=== PATIENT | female | born 2000 | race Caucasian/White ===

== ENCOUNTER 2023-05-05 19:15 | Emergency (ER) | payer OTHER, SELFPAY ==
[2023-05-05 19:23] VITALS: BP 120/80; PULSE 100; RESP 16; TEMP 37.2; O2SAT 96; BMI 40.4
--- NOTE | 2023-05-05 19:42 | ED_ITS ---
HPI - Abdominal Pain General Chief Complaint: Abdominal Pain Stated Complaint: PELVIS PAIN/BLEEDING Time Seen by Provider: 05/05/23 19:36 Source: patient Mode of arrival: walk-in Limitations: no limitations History of Present Illness HPI narrative: presents complaining of pelvic pain for 2 months. History of mental health illness for which she takes Vraylar, vistaril, wellbutrin , trileptal. Also takes depoprovera injections for BCP and is receiving testosterone injections via telehealth physician. States one month ago seen for pelvic pain and an ultrasound was performed. States she was never told the results. now presents complaining of continued pelvic pain and occ vaginal bleeding. States she does experience pelvic cramping when she bleeds. Denies any urinary symptoms or fever Onset (ago): month(s) Related Data Home Medications Medication Instructions Recorded Confirmed injection testosterone 0.15 mg subcut .two times a week 05/05/23 05/05/23 bupropion HCl 300 mg 24 hr tablet, mg PO 05/05/23 extended release cariprazine 6 mg capsule (Vraylar) mg 05/05/23 hydroxyzine HCl 25 mg tablet mg 05/05/23 oxcarbazepine 300 mg tablet mg 05/05/23 trazodone 50 mg tablet mg 05/05/23 Allergies Allergy/AdvReac Type Severity Reaction Status Date / Time No Known Drug Allergies Allergy Verified 05/05/23 19:23 Review of Systems ROS Status of ROS 10 or more systems reviewed and unremarkable except as noted in history and below PFSH PFSH Social History Smoking status: Former smoker Exam Constitutional Vital Signs, click to edit/add: Last Vital Signs Temp 99 F 05/05/23 19:23 Pulse 100 H 05/05/23 19:23 Resp 16 05/05/23 19:23 BP 120/80 05/05/23 19:23 Pulse Ox 96 05/05/23 19:23 O2 Del Method Room Air 05/05/23 19:23 Common normals: no apparent distress, oriented x3, alert and well nourished Eye Common normals: EOMs intact bilaterally and conjunctivae normal Respiratory Common normals: normal respiratory effort, no retractions, no use of accessory muscles and clear to auscultation bilaterally Cardio Common normals: regular rate, regular rhythm, S1 normal heart sound and S2 normal heart sound GI Common normals: Normal to inspection, nondistended, normoactive bowel sounds present, soft to palpation and non-tender Extremity Common normals: normal to inspection and full ROM Neuro Common normals: oriented x3, CN's II-XII intact bilaterally, moves all extremities, no focal motor deficits and no sensory deficits noted Psych Appearance: grossly normal Course Vital Signs Vital signs: Vital Signs Temperature 99 F 05/05/23 19:23 Pulse Rate 100 H 05/05/23 19:23 Respiratory Rate 16 05/05/23 19:23 Blood Pressure 120/80 05/05/23 19:23 Pulse Oximetry 96 05/05/23 19:23 Oxygen Delivery Method Room Air 05/05/23 19:23 Temperature 99 F 05/05/23 19: Pulse Rate 100 H 05/05/23 19:23 Respiratory Rate 16 05/05/23 19:23 Blood Pressure 120/80 05/05/23 19:23 Pulse Oximetry 96 05/05/23 19:23 Oxygen Delivery Method Room Air 05/05/23 19:23 MDM - Abdominal Pain MDM Narrative Medical decision making narrative: patient presents complaining of pelvic pain for 2 months. States she had an ultrasound performed one month ago but had not been called with any results. Continues to have pelvic pain and occ vaginal bleeding. exam here unremarkable. Abdomen nontender. Pelvic bimanual exam with mild tenderness left adnexa. no guarding. No cervical motion tenderness. vaginal vault with small amount of blood that easily cleared. UA positive. Did try to obtain ultrasound report form outside hospital but they were not able to provide it. patient resting comfortably and in no distress. Prescribed Bactrim and advised to follow up with her doctor early next week for recheck and to find out the results of her pelvic ultraound Lab Data Labs: Lab Results 05/05/23 05/05/23 05/05/23 Range/Units 19:20 19:40 19:55 WBC 9.8 (4.0-11.0) 10^3/uL RBC 5.65 H (4.20-5.40) 10^6/uL Hgb 16.3 H (12.0-16.0) g/dL Hct 47.0 (36.0-48.0) % MCV 83.2 (81.0-99.0) fL MCH 28.8 (26.7-34.0) pg MCHC 34.7 (29.9-35.2) g/dL RDW 13.7 (11.0-15.0) % Plt Count 275 (150-450) 10^3/uL MPV 8.9 L (9.5-13.5) fL Neut % (Auto) 56.5 (43.0-75.0) % Lymph % (Auto) 30.5 (20.5-60.0) % [place] % (Auto) 8.8 (1.7-12.0) % Eos % (Auto) 3.2 (0.9-7.0) % Baso % (Auto) 0.6 (0.2-2.0) % Neut # (Auto) 5.5 (1.4-6.5) 10^3/uL Lymph # (Auto) 3.0 (1.2-3.8) 10^3/uL [place] # (Auto) 0.9 H (0.3-0.8) 10^3/uL Eos # (Auto) 0.3 (0.0-0.7) 10^3/uL Baso # (Auto) 0.1 (0.0-0.1) 10^3/uL Abs Immat Gran (auto) 0.04 H (0.00-0.03) 10^3/uL Imm/Tot Granulo (auto) 0.4 (0.0-0.5) % Sodium 141 (136-145) mmol/L Potassium 3.5 (3.5-5.1) mmol/L Chloride 106 (98-107) mmol/L Carbon Dioxide 23.6 (21.0-32.0) mmol/L Anion Gap 14.9 BUN 11.0 (7.0-18.0) mg/dL Creatinine 1.18 H (0.55-1.02) mg/dL Est GFR ( Amer) >60 (>=60) Est GFR (Non-Af Amer) 58 L (>=60) BUN/Creatinine Ratio 9.3 Glucose 103 (74-106) mg/dL Calcium 8.7 (8.5-10.1) mg/dL Total Bilirubin 0.3 (0.2-1.0) mg/dL AST 16 (15-37) U/L ALT 31 (14-59) U/L Alkaline Phosphatase 86 (46-116) U/L Total Protein 7.6 (6.4-8.2) g/dL Albumin 3.8 (3.4-5.0) g/dL Globulin 3.8 g/dL Albumin/Globulin Ratio 1.0 Urine Color Lt. yellow (YELLOW) Urine Clarity Clear (CLEAR) Urine pH 6.0 (5.0-9.0) Ur Specific [place] 1.020 (1.005-1.025) Urine Protein Negative (NEG/TRACE) mg/dL Urine Glucose (UA) Negative (NEGATIVE) mg/dL Urine Ketones Negative (NEGATIVE) mg/dL Urine Occult Blood Moderate A (NEGATIVE) Urine Nitrite Negative (NEGATIVE) Urine Bilirubin Negative (NEGATIVE) Urine Urobilinogen 1.0 (0.2-1.0) EU/dL Ur Leukocyte Esterase Large A (NEGATIVE) Urine RBC 10-20 A (0-2) #/HPF Urine WBC 50-75 A (NONE SEEN) #/HPF Ur Squamous Epith Cells Few A (NONE/RARE) #/LPF Urine Crystals None seen (None Seen) #/HPF Urine Bacteria Trace A (NONE SEEN) #/HPF Urine Casts None seen (NONE SEEN) #/LPF Urine Mucus None seen (NONE SEEN) Ur Culture Indicated? Yes Urine HCG, Qual Negative (NEGATIVE) Discharge Plan Discharge Chief Complaint: Abdominal Pain Clinical Impression: UTI (urinary tract infection), Pelvic pain Patient Disposition: Home, Self-Care Prescriptions / Home Meds: No Action trazodone 50 mg tablet oxcarbazepine 300 mg tablet hydroxyzine HCl 25 mg tablet bupropion HCl 300 mg tablet extended release 24 hr PO Vraylar 6 mg capsule injection testosterone 0.15 mg subcut .two times a week Instructions: Urinary Tract Infection in Women (ED), Pelvic Pain (ED) Additional Instructions: follow up with your doctor next week as discussed Stand Alone Forms: Portal Instructions Referrals: Helio Campos MD [Primary Care Provider] - 1 week
--- NOTE | 2023-05-05 19:43 | PC.NURSE ---
pt presents to ED because pt states she has an OBGYN in [facility] and had an abdominal/transvaginal ultrasound done a month ago and was never called back with the results. pt states that for the last 2 months she has had bleeding occasionally but only when she is cramping. pt does not have regular periods and states she never has. pt states that she is currently on control and has shots done monthly but is trying to get off the control. pt is also taking testosterone. pt states bleeding has gotten increasingly worse and that is why she is here today.
[2023-05-05 19:44] LABS: Bilirubin Urine NEGATIVE (NEGATIVE); Blood Urine MODERATE (NEGATIVE); Clarity Urine CLEAR (CLEAR); Color Urine LT. YELLOW (YELLOW); Glucose Urine UA NEGATIVE (NEGATIVE); Ketones Urine NEGATIVE (NEGATIVE); Leukocyte Esterase Urine LARGE (NEGATIVE); Nitrite Urine NEGATIVE (NEGATIVE); Protein Urine NEGATIVE (NEG/TRACE)
[2023-05-05 19:59] LABS: Urine Microscopic Indicated YES
[2023-05-05 20:03] LABS: Basophils Absolute Auto 0.1 10^3/uL (0.0-0.1); Basophils Percent Auto 0.6 % (0.2-2.0); Eosinophils Absolute Auto 0.3 10^3/uL (0.0-0.7); Eosinophils Percent Auto 3.2 % (0.9-7.0); Hemoglobin 16.3 g/dL (12.0-16.0); Immature Granulocytes Abs Auto 0.04 10^3/uL (0.00-0.03); Immature Granulocytes Pct Auto 0.4 % (0.0-0.5); Lymphocytes Percent Auto 30.5 % (20.5-60.0); Mean Corpuscular HGB Conc 34.7 g/dL (29.9-35.2); Mean Corpuscular Hemoglobin 28.8 pg (26.7-34.0); Mean Corpuscular Volume 83.2 fL (81.0-99.0); Mean Platelet Volume 8.9 fL (9.5-13.5); Monocytes Absolute Auto 0.9 10^3/uL (0.3-0.8); Monocytes Percent Auto 8.8 % (1.7-12.0); Neutrophils Absolute Auto 5.5 10^3/uL (1.4-6.5); Neutrophils Percent Auto 56.5 % (43.0-75.0); Platelet Count 275 10^3/uL (150-450); Red Blood Count 5.65 10^6/uL (4.20-5.40); Red Cell Distribution Width 13.7 % (11.0-15.0); White Blood Count 9.8 10^3/uL (4.0-11.0)
[2023-05-05 20:03] LABS: WBC Urine 50-75 #/HPF (NONE SEEN)
[2023-05-05 20:06] LABS: Bacteria Urine TRACE #/HPF (NONE SEEN)
[2023-05-05 20:07] LABS: Cast Seen? NONE SEEN #/LPF (NONE SEEN); Crystals Seen? None Seen #/HPF (None Seen); Mucus Urine NONE SEEN (NONE SEEN); Squamous Epithelial Cell Urine FEW #/LPF (NONE/RARE); Urine Culture Indicated YES
[2023-05-05 20:24] LABS: Alanine Aminotransferase 31 U/L (14-59); Albumin Level 3.8 g/dL (3.4-5.0); Alkaline Phosphatase 86 U/L (46-116); Anion Gap 14.9; Aspartate Amino Transferase 16 U/L (15-37); BUN Creatinine Ratio 9.3; Bilirubin Total 0.3 mg/dL (0.2-1.0); Calcium 8.7 mg/dL (8.5-10.1); Carbon Dioxide 23.6 mmol/L (21.0-32.0); Chloride 106 mmol/L (98-107); Estimated GFR (African America >60 (>=60); Estimated GFR (Non-African Ame 58 (>=60); Globulin 3.8 g/dL; Glucose 103 mg/dL (74-106); Potassium 3.5 mmol/L (3.5-5.1); Sodium 141 mmol/L (136-145); Total Protein 7.6 g/dL (6.4-8.2)
[2023-05-05 20:46] LABS: HCG Qualitative Urine* NEGATIVE (NEGATIVE)
[2023-05-05] MEDS: SULFAMETHOXAZOLE/TRIMETHOPRIM 800-160 MG TABLET 1 TAB PO (22:15)
[2023-05-09 10:09] LABS: Neisseria gonorrhoeae, NAA Negative (Negative)
== END 2023-05-05 22:28 | disposition home or self-care (01) ==
PROVIDERS: Emergency Provider Internal Medicine; PCP Family Medicine
DX: N39.0 Urinary tract infection, site not specified (principal); R10.2 Pelvic and perineal pain; Z79.899 Other long term (current) drug therapy; Z87.891 Personal history of nicotine dependence
CPT/HCPCS: 36415; 80053; 81001; 81003; 84703; 85025; 87086; 87210; 87491; 87591; 99284

== ENCOUNTER 2023-06-29 09:30 | Outpatient (OUT) | payer OTHER, SELFPAY ==
--- NOTE | 2023-06-29 09:38 | US_ITS ---
The [address] [address] Patient Name: KASH STEVE MRN: [id number] date: 2000 Sex: F Assigned Patient Location: Current Patient Location: US Accession/Order Number: [id number] Exam Date: 06/29/2023 09:40 Report Date: 06/29/2023 10:18 At the request of: ALFREDO JORGENSEN Procedure: US pelvis w/ transvaginal EXAM: Pelvic ultrasound HISTORY: . Pelvic Pain N94.89 . COMPARISON: None. TECHNIQUE: Transabdominal and transvaginal scanning was performed FINDINGS: Scanning of the pelvis demonstrates an anteverted uterus measuring 7.3 x 5.1 x 4.4 cm. Endometrial complex measures 6 mm. Left ovary measures 2.8 x 1.4 x 1.1 cm. Color-flow is noted. No masses are noted. Small follicles are noted Right ovary measures 2 x 1.5 x 1.2 cm. Color-flow is noted. Small Follicles are noted. No fluid is noted in the cul-de-sac. US/US pelvis w/ transvaginal IMPRESSION: 1. Normal-appearing uterus and endometrial complex. 2. Normal-appearing ovaries. Electronically authenticated by: SALVADOR SEO Date: 06/29/2023 10:18
== END 2023-06-29 09:31 | disposition home or self-care (01) ==
LOC: US 09:31
PROVIDERS: PCP Family Medicine; Visit Provider Nurse Practitioner Family
DX: N94.89 Other specified conditions associated with female genital organs and menstrual cycle (principal)
CPT/HCPCS: 76830; 76856

== ENCOUNTER 2023-07-16 20:44 | Outpatient (OUT) | payer OTHER, SELFPAY | END 2023-07-16 20:45 | disposition home or self-care (01) | LOC: SLEEP 20:44 | PROVIDERS: PCP Family Medicine; Visit Provider Family Medicine | DX: G47.33 Obstructive sleep apnea (adult) (pediatric) (principal) | CPT/HCPCS: 95810 ==

== ENCOUNTER 2023-08-01 21:00 | Outpatient (OUT) | payer OTHER, SELFPAY | END 2023-08-01 21:01 | disposition home or self-care (01) | LOC: SLEEP 21:00 | PROVIDERS: PCP Family Medicine; Visit Provider Family Medicine | DX: G47.33 Obstructive sleep apnea (adult) (pediatric) (principal) | CPT/HCPCS: 95811 ==

== ENCOUNTER 2023-09-26 14:25 | Emergency (ER) | payer OTHER, SELFPAY ==
[2023-09-26 14:37] VITALS: BP 99/58; PULSE 88; RESP 20; TEMP 36.6; O2SAT 97; BMI 43.4
[2023-09-26 15:57] LABS: Influenza Virus A Antigen Negative; Influenza Virus B Antigen Negative; Internal Control Within Normal Limits; SARS-CoV-2 Ag NEGATIVE (NEGATIVE)
--- NOTE | 2023-09-26 16:03 | ED.URI1 ---
HPI - URI/Sore Throat General Chief Complaint: Upper Respiratory Infection Stated Complaint: URTI COMPLAINTS Time Seen by Provider: 09/26/23 14:39 Source: patient Limitations: no limitations History of Present Illness HPI Narrative: about a week ago, the patient developed nasal congestion, right ear fullness, cough. No fever or chills. Uncertain about ill exposures. No vomiting or diarrhea. No meds taken for the symptoms. Related Data Home Medications Medication Instructions Recorded Confirmed injection testosterone 0.15 mg subcut .two times a week 05/05/23 05/05/23 bupropion HCl 300 mg 24 hr tablet, mg PO 05/05/23 extended release cariprazine 6 mg capsule (Vraylar) mg 05/05/23 hydroxyzine HCl 25 mg tablet mg 05/05/23 oxcarbazepine 300 mg tablet mg 05/05/23 trazodone 50 mg tablet mg 05/05/23 Previous Rx's Medication Instructions Recorded kbkqfjbqmikwvtf-trlcsdufmqhorjh-YQ 5 ml PO Q6H PRN cold symptoms #118 09/26/23 2 mg-30 mg-10 mg/5 mL oral syrup mL (Bromfed DM) Allergies Allergy/AdvReac Type Severity Reaction Status Date / Time No Known Drug Allergies Allergy Verified 05/05/23 19:23 PFSH PFSH Social History Smoking status: Former smoker Exam Narrative Exam Narrative: Nurses notes and vital signs reviewed and patient is not hypoxic. afebrile General: Well-appearing and in no apparent distress. Skin: Warm, dry, no pallor noted. Neck: Supple, non-tender. No cervical lymphadenopathy Eye: Pupils are equal, round and EOMI. No scleral icterus. Ears, Nose, Mouth, and Throat: TM are clear, no posterior oropharynx erythema, mild nasal mucosal hypertrophy with rhinorrhea, uvula is mid-line Oral mucosa is moist Cardiovascular: Regular Rate and Rhythm without murmur, gallop or rub. Respiratory: No accessory muscle use or respiratory distress. Lungs are clear to auscultation, no wheezing, rales or rhonchi Neurological: A&O x4. No cranial nerve dysfunction observed. No truncal ataxia. Moves all extremities. Sensation intact. Psychiatric: Cooperative and interactive. Normal mood and affect. Constitutional Vital Signs, click to edit/add: Last Vital Signs Temp 97.9 F 09/26/23 14:37 Pulse 88 09/26/23 14:37 Resp 20 09/26/23 14:37 BP 99/58 09/26/23 14:37 Pulse Ox 97 09/26/23 14:37 O2 Del Method Room Air 09/26/23 14:37 Course Vital Signs Vital signs: Vital Signs Temperature 97.9 F 09/26/23 14:37 Pulse Rate 88 09/26/23 14:37 Respiratory Rate 20 09/26/23 14:37 Blood Pressure 99/58 09/26/23 14:37 Pulse Oximetry 97 09/26/23 14:37 Oxygen Delivery Method Room Air 09/26/23 14:37 Temperature 97.9 F 09/26/23 14:37 Pulse Rate 88 09/26/23 14:37 Respiratory Rate 20 09/26/23 14:37 Blood Pressure 99/58 09/26/23 14:37 Pulse Oximetry 97 09/26/23 14:37 Oxygen Delivery Method Room Air 09/26/23 14:37 MDM - URI/Sore Throat MDM Narrative Medical decision making narrative: Influenza and COVID swabs were negative. The patient's exam is consistent with viral upper respiratory infection. She was prescribed Bromfed-DM cough syrup to take at home and discharged home with a work excuse. Lab Data Attestation: I reviewed the patient's lab results. Labs: Lab Results 09/26/23 Range/Units 15:34 SARS-CoV-2 (PCR) Negative (NEGATIVE) Influenza Type A Ag Negative Influenza Type B Ag Negative Discharge Plan Discharge Chief Complaint: Upper Respiratory Infection Clinical Impression: Upper respiratory infection Patient Disposition: Home, Self-Care Time of Disposition Decision: 16:08 Prescriptions / Home Meds: New frecsksotmzihih-prcygnzfv-OT [Bromfed DM] 2-30-10 mg/5 mL syrup 5 ml PO Q6H PRN (Reason: cold symptoms) Qty: 118 0RF No Action trazodone 50 mg tablet oxcarbazepine 300 mg tablet hydroxyzine HCl 25 mg tablet bupropion HCl 300 mg tablet extended release 24 hr PO Vraylar 6 mg capsule injection testosterone 0.15 mg subcut .two times a week Instructions: Upper Respiratory Infection (ED) Stand Alone Forms: Portal Instructions Referrals: Jordan Love MD [Primary Care Provider] - 1 week
[2023-09-27 14:27] LABS: SARS-CoV-2 NAA NOT DETECTED (NOT DETECTE)
== END 2023-09-26 16:19 | disposition home or self-care (01) ==
PROVIDERS: Emergency Provider Emergency Medicine; PCP Family Medicine
DX: J06.9 Acute upper respiratory infection, unspecified (principal); Z87.891 Personal history of nicotine dependence
CPT/HCPCS: 87635; 87804; 87811; 99284

== ENCOUNTER 2024-08-31 12:52 | Emergency (ER) | payer OTHER, SELFPAY ==
[2024-08-31 12:58] VITALS: BP 155/70; PULSE 94; TEMP 36.8; BMI 42.4
--- NOTE | 2024-08-31 13:05 | ED.ABDPAIN1 ---
HPI - Abdominal Pain General Chief Complaint: Abdominal Pain Stated Complaint: SEVERE STOMACH PAIN Time Seen by Provider: 08/31/24 12:53 Source: patient Mode of arrival: walk-in Limitations: no limitations History of Present Illness HPI narrative: 24-year-old female presents to the emergency department for abdominal pain. It began today and it is all over her abdomen. No vomiting or diarrhea or constipation. No trauma or dysuria or back pain. She has never had abdominal surgeries and has no personal history of abdominal issues. Related Data Home Medications ?Medication ?Instructions ?Recorded ?Confirmed injection testosterone 0.15 mg subcut .two times a week 05/05/23 05/05/23 bupropion HCl 300 mg 24 hr tablet, mg PO 05/05/23 extended release cariprazine 6 mg capsule (Vraylar) 6 mg PO DAILY 05/05/23 08/31/24 hydroxyzine HCl 25 mg tablet mg 05/05/23 oxcarbazepine 300 mg tablet mg 05/05/23 trazodone 50 mg tablet mg 05/05/23 venlafaxine 75 mg capsule,extended 150 mg PO DAILY 08/31/24 08/31/24 release 24 hr Previous Rx's ?Medication ?Instructions ?Recorded djeitjwvcvvvhfj-anhuksvpdkeofjl-VL 5 ml PO Q6H PRN cold symptoms #118 09/26/23 2 mg-30 mg-10 mg/5 mL oral syrup mL (Bromfed DM) Allergies Allergy/AdvReac Type Severity Reaction Status Date / Time No Known Drug Allergies Allergy Verified 08/31/24 12:58 Review of Systems ROS Narrative A ten point review of systems is negative except as noted above. PFSH PFSH Social History Smoking status: Former smoker Little interest or pleasure in doing things: not at all Feeling down, depressed, or hopeless: not at all Exam Narrative Exam Narrative: Nurses note and vital signs reviewed and patient is not hypoxic. General: The patient appears well and in no apparent distress. Patient is resting comfortably on cart. Skin: Warm, dry, no pallor noted. There is no rash noted. Head: Normocephalic, atraumatic Eye: Normal conjunctiva, no drainage Ears, Nose, Mouth, and Throat: oral mucosa is moist. Nares patent. Cardiovascular: Regular Rate and Rhythm Respiratory: Patient is in no distress, no accessory muscle use, lungs are clear to auscultation, no wheezing, rales or rhonchi Back: non-tender GI: Soft and nondistended. Normal bowel sounds. Minimal diffuse tenderness. Musculoskeletal: The patient has no evidence of calf tenderness, no pitting edema, symmetrical pulses noted bilaterally Neurological: A&O, normal speech Psychiatric: Cooperative Constitutional Vital Signs, click to edit/add: Last Vital Signs Temp 98.2 F 08/31/24 12:58 Pulse 88 08/31/24 13:57 Resp 18 08/31/24 13:57 BP 113/67 08/31/24 13:57 Pulse Ox 99 08/31/24 13:57 O2 Del Method Room Air 08/31/24 12:58 Course Vital Signs Vital signs: Vital Signs Temperature 98.2 F 08/31/24 12:58 Pulse Rate 94 H 08/31/24 12:58 Respiratory Rate 18 08/31/24 12:58 Blood Pressure 155/70 H 08/31/24 12:58 Oxygen Delivery Method Room Air 08/31/24 12:58 Temperature 98.2 F 08/31/24 12:58 Pulse Rate 88 08/31/24 13:57 Respiratory Rate 18 08/31/24 13:57 Blood Pressure 113/67 08/31/24 13:57 Pulse Oximetry 99 08/31/24 13:57 Oxygen Delivery Method Room Air 08/31/24 12:58 MDM - Abdominal Pain MDM Narrative Medical decision making narrative: Urinalysis is negative and blood work is essentially negative. X-ray shows constipation and she was recommended MiraLAX. Treatment diagnosis and follow-up were discussed with the patient. Differential Diagnosis Differential diagnosis: Likely abdominal pain, constipation, diverticulitis, gastroenteritis and pancreatitis Lab Data Attestation: I reviewed the patient's lab results. Labs: Lab Results 08/31/24 08/31/24 Range/Units 13:23 14:06 WBC 12.2 H (4.0-11.0) 10^3/uL RBC 4.93 (4.20-5.40) 10^6/uL Hgb 15.2 (12.0-16.0) g/dL Hct 43.7 (36.0-48.0) % MCV 88.6 (81.0-99.0) fL MCH 30.8 (26.7-34.0) pg MCHC 34.8 (29.9-35.2) g/dL RDW 12.2 (11.0-15.0) % Plt Count 299 (150-450) 10^3/uL MPV 8.7 L (9.5-13.5) fL Neut % (Auto) 65.5 (43.0-75.0) % Lymph % (Auto) 24.1 (20.5-60.0) % [place] % (Auto) 6.9 (1.7-12.0) % Eos % (Auto) 2.5 (0.9-7.0) % Baso % (Auto) 0.5 (0.2-2.0) % Neut # (Auto) 8.0 H (1.4-6.5) 10^3/uL Lymph # (Auto) 3.0 (1.2-3.8) 10^3/uL [place] # (Auto) 0.8 (0.3-0.8) 10^3/uL Eos # (Auto) 0.3 (0.0-0.7) 10^3/uL Baso # (Auto) 0.1 (0.0-0.1) 10^3/uL Abs Immat Gran (auto) 0.06 H (0.00-0.03) 10^3/uL Imm/Tot Granulo (auto) 0.5 (0.0-0.5) % Sodium 141 (136-145) mmol/L Potassium 4.0 (3.5-5.1) mmol/L Chloride 104 (98-107) mmol/L Carbon Dioxide 24.2 (21.0-32.0) mmol/L Anion Gap 16.8 BUN 14.0 (7.0-18.0) mg/dL Creatinine 0.90 (0.55-1.02) mg/dL Est GFR ( Amer) >60 (>=60 mL/min/1.73m^2) Est GFR (Non-Af Amer) >60 (>=60 mL/min/1.73m^2) BUN/Creatinine Ratio 15.6 Glucose 100 (74-106) mg/dL Calcium 9.1 (8.5-10.1) mg/dL Total Bilirubin 0.4 (0.2-1.0) mg/dL Direct Bilirubin 0.1 (0.0-0.2) mg/dL AST 14 L (15-37) U/L ALT 27 (14-59) U/L Alkaline Phosphatase 92 (46-116) U/L Total Protein 7.5 (6.4-8.2) g/dL Albumin 3.5 (3.4-5.0) g/dL Globulin 4.0 g/dL Albumin/Globulin Ratio 0.9 Amylase 97 (25-115) U/L Lipase 50.0 (16.0-77.0) U/L Serum HCG, Qual Negative (NEGATIVE) Urine Color Lt. yellow (YELLOW) Urine Clarity Clear (CLEAR) Urine pH 7.0 (5.0-9.0) Ur Specific [place] 1.015 (1.005-1.025) Urine Protein Negative (NEG/TRACE) mg/dL Urine Glucose (UA) Negative (NEGATIVE) mg/dL Urine Ketones Negative (NEGATIVE) mg/dL Urine Occult Blood Negative (NEGATIVE) Urine Nitrite Negative (NEGATIVE) Urine Bilirubin Negative (NEGATIVE) Urine Urobilinogen 0.2 (0.2-1.0) EU/dL Ur Leukocyte Esterase Negative (NEGATIVE) Urine RBC None seen (0-2) #/HPF Urine WBC None seen (NONE SEEN) #/HPF Ur Squamous Epith Cells Many A (NONE/RARE) #/LPF Urine Crystals None seen (None Seen) #/HPF Urine Bacteria Trace A (NONE SEEN) #/HPF Urine Casts None seen (NONE SEEN) #/LPF Urine Mucus None seen (NONE SEEN) Ur Culture Indicated? No Imaging Data Abdominal x-ray: Radiologist's impression: ITS Impressions Abdomen X-Ray 08/31/24 13:57 IMPRESSION: Moderate colonic stool. Increased bowel gas without evidence of obstruction. Electronically authenticated by: TEA MALDONADO Date: 08/31/2024 15:41 Discharge Plan Discharge Chief Complaint: Abdominal Pain Clinical Impression: Constipation Patient Disposition: Home, Self-Care Time of Disposition Decision: 15:51 Condition: Good Mode of Transportation: Private Vehicle Prescriptions / Home Meds: No Action trazodone 50 mg tablet oxcarbazepine 300 mg tablet hydroxyzine HCl 25 mg tablet bupropion HCl 300 mg tablet extended release 24 hr PO Vraylar 6 mg capsule 6 mg PO DAILY injection testosterone 0.15 mg subcut .two times a week venlafaxine 75 mg capsule,extended release 24hr 150 mg PO DAILY ccupflnbjnntbau-svxmnbbjf-PL [Bromfed DM] 2-30-10 mg/5 mL syrup 5 ml PO Q6H PRN (Reason: cold symptoms) Qty: 118 0RF Print Language: Telugu Instructions: Constipation (ED) Additional Instructions: Gbrl-vxy-ireiuwd MiraLAX for constipation Referrals: Jordan Love MD [Primary Care Provider] - 1 week
--- OUTSIDE RECORDS SUMMARY | 2024-08-31 13:15 | XMS_ITS | CCD ---
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 Name Role Phone MD Helio Florian Primary Care Provider MD Param Rao Admit Provider MD Param Rao Attending Provider [phone] MARKER, DR JONAS Admitting Unavailable MARKER, DR JONAS Attending Unavailable MARKER, DR JONAS Consulting Unavailable CHIQUI, DR HELIO Verma Primary Care Unavailable CHIQUI, DR HELIO Verma Primary Care Unavailable CHALO, FRANCK NAVAS Consulting Unavailable RUTH, DR PARK Perez Admitting Unavailable RUTH, DR PARK Perez Attending Unavailable Roseanne Grady Consulting Unavailable TAL IQBAL Admitting Unavailable MIRIAM VEGA Consulting Unavailable CHIQUI, DR HELIO Verma Primary Care Unavailable TAL IQBAL Attending Unavailable TAL IQBAL Consulting Unavailable CHIQUI, DR HELIO Verma Primary Care Unavailable TAL IQBAL Attending Unavailable TAL IQBAL Admitting Unavailable Dante Valadez Attending Unavailab Dante Corral Admitting Unavailab Helio Cornjeo Primary Care Unavailable Medications Current Medications Medication Drug Class(es) Dates Sig (Normalized) Sig (Original) 24 hr buPROPion hydrochloride 150 mg extended release oral tablet (1 source) Aminoketone Start: 09-15-2022 take 150 mg by mouth once daily in the morning Bupropion Hcl Active 150 MG PO Every morning September 15, 2022 12:00am cariprazine 3 mg oral capsule (1 source) Atypical Antipsychotic Start: 09-15-2022 take 1 capsule by mouth once daily Cariprazine (Vraylar) 3 mg Capsule Active 3 MG PO Daily September 15, 2022 12:00am 24 hr nicotine 0.583 mg/hr transdermal system (1 source) Cholinergic Nicotinic Agonist Start: 09-15-2022 Nicotine Active 1 EACH TRANSDERML Daily September 15, 2022 12:00am Problems Active Problems Problem Classification Problem Date Documented Da te Episodic/Chronic Headache; including migraine (3 sources) Headache; including migraine; Translations: [HEADACHE UNSPECIFIED] Onset: 09-30-2021 Mood disorders (2 sources) Bipolar disorder; Translations: [Bipolar disorder, unspecified] 09-13-2022 Chronic Mood disorders (1 source) Mood disorders; Translations: [DEPRESSION UNSPECIFIED] Onset: 09-14-2022 Other nutritional; endocrine; and metabolic disorders (1 source) Morbid (severe) obesity due to excess calories; Translations: [MORBID SEVERE OBES D/T EXCESS FELICIANO] Onset: 10-04-2021 Chronic Substance-related disorders (1 source) Nicotine dependence, cigarettes, uncomplicated; Translations: [NICOTINE DEPEND CIGARETTES UNCOMP] Onset: 09-14-2022 Chronic Suicide and intentional self-inflicted injury (4 sources) Suicidal ideations; Translations: [SUICIDAL IDEATIONS] Onset: 09-12-2022 Episodic Unclassified (3 sources) COUGH, UNSPECIFIED; Translations: [COUGH, UNSPECIFIED] Onset: 10-05-2021 Viral infection (1 source) COVID-19; Translations: [COVID-19] Onset: 10-05-2021 Past or Other Problems Problem Classification Problem Date Documented Da te Episodic/Chronic Nausea and vomiting (1 source) Nausea; Translations: [NAUSEA] Onset: 10-05-2021 Episodic Other aftercare (1 source) Other half-way (current) drug therapy; Translations: [OTH PENITENTIARY CURRENT DRUG THERAPY] Onset: 10-05-2021 Episodic Residual codes; unclassified (4 sources) Procedure and treatment not carried out due to patient leaving prior to being seen by health care provider; Translations: [PROC AND TX NOT CARRIED OUT PT LEAVE] Onset: 10-19-2021 Episodic Screening and history of mental health and substance abuse codes (1 source) Personal history of nicotine dependence; Translations: [PERSONAL HISTORY OF NICOTINE DEPEND] Onset: 10-04-2021 Episodic Unclassified (1 source) COUGH, UNSPECIFIED; Translations: [COUGH, UNSPECIFIED] Onset: 10-03-2021 Results Test Name Value Interpretation Reference Range Facility Cholesterol [Mass/volume] in Serum or PlasmaOrdered By: Param Rao on 09-13-2022 Cholesterol [Mass/Vol] 141 mg/dL 140-200 [facility] Comment on above: Chol less than 200 m g/dl low riskChol 201-239 mg/dl borderline riskChol 240 mg/dl and greater high risk Cholesterol in LDL Calc [Mas s/Vol]Ordered By: Param Rao on 09-13-2022 Cholesterol in LDL [Mass/Vol] 94 mg/dL 0-100 [facility] Comment on above: LDL ATP III CLASSIFI CATIONLDL less than 100 mg/dL OptimalLDL 100-129 mg/dL Near or above optimalLDL 130-159 mg/dL Borderline highLDL 160-189 mg/dL HighLDL greater than 189 mg/dL Very high Cholesterol in VLDL Calc [Ma ss/Vol]Ordered By: Param Rao on 09-13-2022 Cholesterol in VLDL [Mass/Vol] 9 mg/dL [facility] No Panel InformationOrdered By: Param Rao on 09-13-2022 25-Hydroxy Vitamin D Total 11.9 ng/mL 30-100 [facility] Comment on above: VITAMIN D STATUS 25( OH)VITAMIN D RANGE (ng/mL) Deficient <20 Insufficient 20 to <30Sufficient 30 to 100Reference: Zee MF,[place] NC, Prabhu DOWNS, et al. Evaluation,treatment, and prevention of vitamin D deficiency; an Endocrine Society clinical practice guideline. JCEM. 2010; 96(7):1911-30. Serum or plasma high density lipoprotein (HDL) cholesterol measurementOrdered By: Param Rao on 09-13-2022 Cholesterol in HDL [Mass/Vol] 38 mg/dL 35-85 [facility] Comment on above: HDL CHOL ATP-III CLA SSIFICATION Cardiovascular RiskHDL > or equal to 60 mg/dL LOWHDL < 40 mg/dL HIGH Serum or plasma total choles terol/high density lipoprotein (HDL) cholesterol mass ratOrdered By: Param Rao on 09-13-2022 Cholesterol.total/Chol esterol in HDL [Mass ratio] 3.7 {ratio} <5.0 [facility] TSH DL <= 0.005 mIU/L QnOrde red By: Param Rao on 09-13-2022 TSH Qn 0.81 m[IU]/L 0.45-5.33 [facility] Triglyceride [Mass/volume] i n Serum or PlasmaOrdered By: Param Rao on 09-13-2022 Triglyceride [Mass/Vol] 45 mg/dL 35-149 [facility] Comment on above: TRIG ATP III CLASSIF ICATIONTRIG less than 150 mg/dL NormalTRIG 150-199 mg/dL Borderline highTRIG 200-500 mg/dL High TRIG greater than 500 mg/dL Very highStandard traceable to the Center for Disease Conrtrol and Prevention (CDC) test method. ACETAMINOPHENon 09-12-2022 Acetaminophen [Mass/Vol] ug/mL Critically low 10.0-30.0 [facility] Comment on above: Performed By: #### S ALYC, ACET, CMP #### [facility] [address] [place] [address] Dr. Machelle Garcia CBC AUTO DIFFon 09-12-2022 BASO # 0.0 103/ul Normal 0.0-0.1 [facility] Comment on above: Performed By: #### C BC #### [facility] [address] [place] [address] Dr. Machelle Garcia Basophils/100 WBC (Bld) 0.4 % Normal 0.2-2.0 [facility] Comment on above: Performed By: #### C BC #### [facility] [address] [place] [address] Dr. Machelle Garcia EO # 0.1 103/ul Normal 0.0-0.7 [facility] Comment on above: Performed By: #### C BC #### [facility] [address] [place] [address] Dr. Machelle Garcia Eosinophils/100 WBC (Bld) 0.8 % Critically low 0.9-7.0 [facility] Comment on above: Performed By: #### C BC #### [facility] [address] [place] [address] Dr. Machelle Garcia Erythrocyte distribution width (RBC) [Ratio] 12.4 % Normal 11.0-15.0 [facility] Comment on above: Performed By: #### C BC #### [facility] [address] [place] [address] Dr. Machelle Garcia Hematocrit (Bld) [Volume fraction] 40.4 % Normal 36.0-48.0 [facility] Comment on above: Performed By: #### C BC #### [facility] [address] [place] [address] Dr. Machelle Garica Hemoglobin (Bld) [Mass/Vol] 14.3 g/dL Normal 12.0-16.0 [facility] Comment on above: Performed By: #### C BC #### [facility] [address] [place] [address] Dr. Machelle Garcia IG # 0.02 10e3/ul Normal 0.00-0.03 [facility] Comment on above: Performed By: #### C BC #### [facility] [address] [place] [address] Dr. Machelle Garcia IG % 0.3 % Normal 0.0-0.5 [facility] Comment on above: Performed By: #### C BC #### [facility] [address] [place] [address] Dr. Machelle Garcia LYMPH # 1.0 103/ul Critically low 1.2-3.8 [facility] Comment on above: Performed By: #### C BC #### [facility] [address] [place] [address] Dr. Machelle Garcia Lymphocytes/100 WBC (Bld) 14.1 % Critically low 20.5-60.0 [facility] Comment on above: Performed By: #### C BC #### [facility] [address] [place] [address] Dr. Machelle Garcia MANUAL DIFF REQ NO Normal [facility] Comment on above: Performed By: #### C BC #### [facility] [address] [place] [address] Dr. Machelle Garcia MCH (RBC) [Entitic mass] 29.7 pg Normal 26.7-34.0 [facility] Comment on above: Performed By: #### C BC #### [facility] [address] [address] [address] Machelle Garcia MCHC (RBC) [Mass/Vol] 35.4 g/dL Critically high 29.9-35.2 [facility] Comment on above: Performed By: #### C BC #### [facility] [address] [address] [address] Machelle Garcia MCV (RBC) [Entitic vol] 83.8 fL Normal 81.0-99.0 [facility] Comment on above: Performed By: #### C BC #### [facility] [address] [address] [address] Machelle Garcia MONO # 0.9 103/ul Critically high 0.3-0.8 [facility] Comment on above: Performed By: #### C BC #### [facility] [address] [address] [address] Machelle Garcia Monocytes/100 WBC (Bld) 12.6 % Critically high 1.7-12.0 [facility] Comment on above: Performed By: #### C BC #### [facility] [address] [address] [address] Machelle Garcia NEUT # 5.2 103/ul Normal 1.4-6.5 [facility] Comment on above: Performed By: #### C BC #### [facility] [address] [address] [address] Machelle Garcia Neutrophils/100 WBC (Bld) 71.8 % Normal 43.0-75.0 [facility] Comment on above: Performed By: #### C BC #### [facility] [address] [address] [address] Machelle Garcia Platelet mean volume (Bld) [Entitic vol] 9.9 fL Normal 9.5-13.5 [facility] Comment on above: Performed By: #### C BC #### [facility] [address] [address] [address] Machlele Garcia PLT 245 103/ul Normal 150-450 [facility] Comment on above: Performed By: #### C BC #### [facility] [address] [address] [address] Machelle Garcia RBC 4.82 106/ul Normal 4.20-5.40 [facility] Comment on above: Performed By: #### C BC #### [facility] [address] [address] [address] Machelle Garcia WBC 7.2 103/ul Normal 4.0-11.0 [facility] Comment on above: Performed By: #### C BC #### [facility] [address] [address] [address] Machelle Garcia DRUG SCREEN RAPID (URINE)on 09-12-2022 AMP Negative Normal NEGATIVE [facility] Comment on above: Performed By: #### D RUGRPD ####[facility] [address] [address]Dr. Machelle Garcia BAR Negative Normal NEGATIVE [facility] Comment on above: Performed By: #### D RUGRPD ####[facility] [id number] [address]Dr. Machelle Garcia BUP Negative Normal NEGATIVE [facility] Comment on above: Performed By: #### D RUGRPD ####[facility] [id number] [address]Dr. Machelle Garcia BZO Negative Normal NEGATIVE [facility] Comment on above: Performed By: #### D RUGRPD ####[facility] [address] [address]Dr. Machelle Garcia JOHN Negative Normal NEGATIVE [facility] Comment on above: Performed By: #### D RUGRPD ####[facility] [address] [address]Dr. Machelle Garcia CUT-OFFS SEE BELOW Normal [facility] Comment on above: Result Comment: AMP (Amphetamine): 500ng/mL, BAR (Barbituates): 200 ng/mL, BZO (Benzodiazepines): 150 ng/mL, BUP (Buprenorphine): 10 ng/mL, JOHN (Cocaine): 150 ng/mL, mAMP (Methamphetamine): 500 ng/mL, MTD (Methadone): 200 ng/mL, OPI (Opiates): 100 ng/mL, OXY (Oxycodone): 100 ng/mL, PCP (Phencyclidine): 25 ng/mL, PPX (Propoxyphene): 300 ng/mL, THC (Cannabinoids): 50 ng/mL, TCA (Trycyclic Antidepressants): 300 ng/mL Performed By: #### D RUGRPD ####[facility] [address] [place], [place] [address]Dr. Machelle Garcia DRUG CUT HEADER DRUG CLASS TEST SYST EM CUT-OFF CONCENTRATIONS ARE FOLLOWS: Normal [facility] Comment on above: Performed By: #### D RUGRPD ####[facility] [address] [place], [place] [address]Dr. Machelle Garcia mAMP Negative Normal NEGATIVE [facility] Comment on above: Performed By: #### D RUGRPD ####[facility] [address] [place], [place] [address]Dr. Machelle Garcia MTD Negative Normal NEGATIVE [facility] Comment on above: Performed By: #### D RUGRPD ####[facility] [address] [place], [place] [address]Dr. Machelle Garcia OPI Negative Normal NEGATIVE [facility] Comment on above: Performed By: #### D RUGRPD ####[facility] [address] [place], [place] [address]Dr. Machelle Garcia OXY Negative Normal NEGATIVE [facility] Comment on above: Performed By: #### D RUGRPD ####[facility] [address] [place], [place] [address]Dr. Machelle Garcia PCP Negative Normal NEGATIVE [facility] Comment on above: Performed By: #### D RUGRPD ####[facility] [address] [place], [place] [address]Dr. Machelle [facility] PPX Negative Normal NEGATIVE [facility] Comment on above: Performed By: #### D RUGRPD ####[facility] [address] [place], [place] [address]Dr. Machelle Garcia TCA Negative Normal NEGATIVE [facility] Comment on above: Performed By: #### D RUGRPD ####[facility] [id number] [address]Dr. Machelle Garcia THC Positive Abnormal NEGATIVE [facility] Comment on above: Performed By: #### D RUGRPD ####[facility] [address] [id number]. Machelle Garcia ER URINE PROFILEon 2 Bilirubin Ql (U) Negative Normal NEGATIVE [facility] Comment on above: Performed By: #### P REGU, ERUR #### [facility] [address] [address] [address] Machelle Garcia Clarity (U) CLEAR Normal CLEAR [facility] Comment on above: Performed By: #### P REGU, ERUR #### [facility] [address] [address] [address] Machelle Garcia Color (U) LT. YELLOW Normal YELLOW [facility] Comment on above: Performed By: #### P REGU, ERUR #### [facility] [address] [address] [address] Machelle TAYLOR A micrscopic examination will be performed if indicated. Normal [facility] Comment on above: Performed By: #### P REGU, ERUR #### [facility] [address] [address] [address] Machelle Garcia Glucose Ql (U) Negative Normal NEGATIVE [facility] Comment on above: Performed By: #### P REGU, ERUR #### [facility] [address] [address] [address] Machelle Garcia Hemoglobin Ql (U) Negative Normal NEGATIVE [facility] Comment on above: Performed By: #### P REGU, ERUR #### [facility] [address] [address] [address] Machelle Garcia Ketones Ql (U) TRACE Abnormal NEGATIVE [facility] Comment on above: Performed By: #### P REGU, ERUR #### [facility] [address] [address] [address] Machelle Garcia LEUKOCYTES Negative Normal NEGATIVE [facility] Comment on above: Performed By: #### P REGU, ERUR #### [facility] [address] [address] [address] Machelle Garcia Nitrite Ql (U) Negative Normal NEGATIVE [facility] Comment on above: Performed By: #### P REGU, ERUR #### [facility] [address] [address] [address] Machelle Garcia pH (U) 5.5 [pH] Normal 5-9 [facility] Comment on above: Performed By: #### P REGU, ERUR #### [facility] [address] [address] [address] Machelle Garcia SPEC GRAVITY 1.020 Normal 1.005-<=1.02 5 [facility] Comment on above: Performed By: #### P REGU, ERUR #### [facility] [address] [address] [address] Machelle Garcia UA PROTEIN Negative Normal NEGATIVE/ TRACE [facility] Comment on above: Performed By: #### P REGU, ERUR #### [facility] [address] [address] [address] Machelle Garcia UR MICRO IND NOT INDICATED Normal [facility] Comment on above: Performed By: #### P REGU, ERUR #### [facility] [address] [address] [address] Machelle Garcia Urobilinogen Qn (U) 0.2 {Jeanine'U}/dL Normal 0.2 - 1. 0 [facility] Comment on above: Performed By: #### P REGU, ERUR #### [facility] [address] [address] [address] Machelle Garcia ETHANOL (BLD ALC)on 09-12-20 ALC NOTE NOTE: 80 mg/dl is th e legal limit for a blood alcohol level Normal [facility] Comment on above: Performed By: #### E TH ####[facility] [address] [address]Dr. Machelle Garcia Ethanol [Mass/Vol] mg/dL Normal [facility] Comment on above: Performed By: #### E TH ####[facility] [address] [place], [place] [address]Dr. Machelle Garcia URon 09-12-2022 , QUAL Negative Normal NEGATIVE [facility] Comment on above: Performed By: #### P REGU, ERUR #### [facility] [address] [address] [address] Machelle Garcia PROF 14(COMP METB)on 022 Albumin [Mass/Vol] 3.9 g/dL Normal 3.4-5.0 [facility] Comment on above: Performed By: #### S ALYC ACET, CMP #### [facility] [address] [address] [address] Machelle Garcia Albumin/Globulin [Mass ratio] 1.1 {ratio} Normal [facility] Comment on above: Performed By: #### S ALYC ACET, CMP #### [facility] [address] [address] [address] Machelle Garcia ALP [Catalytic activity/Vol] 89 U/L Normal 46-116 [facility] Comment on above: Performed By: #### S ALYC ACET, CMP #### [facility] [address] [address] [address] Machelle Garcia ALT [Catalytic activity/Vol] 19 U/L Normal 14-59 [facility] Comment on above: Performed By: #### S ALYC, ACET, CMP #### [facility] [address] [address] [address] Machelle Garcia Anion gap [Moles/Vol] 12.1 mmol/L Normal [facility] Comment on above: Performed By: #### S ALYC, ACET, CMP #### [facility] [address] [address] [address] Machelle Garcia AST [Catalytic activity/Vol] 16 U/L Normal 15-37 [facility] Comment on above: Performed By: #### S ALYC, ACET, CMP #### [facility] [address] [address] [address] Machelle Garcia Bilirubin [Mass/Vol] 0.4 mg/dL Normal 0.2-1.0 [facility] Comment on above: Performed By: #### S ALTOSHA ACET, CMP #### [facility] [address] [address] [address] Machelle Garcia Calcium [Mass/Vol] 9.0 mg/dL Normal 8.5-10.1 [facility] Comment on above: Performed By: #### S ALYC ACET, CMP #### [facility] [address] [address] [address] Machelle Garcia Chloride [Moles/Vol] 104 mmol/L Normal 98-107 [facility] Comment on above: Performed By: #### S ALTOSHA ACET, CMP #### [facility] [address] [place] [address] Dr. Machelle Garcia CO2 [Moles/Vol] 25.5 mmol/L Normal 21.0-32.0 [facility] Comment on above: Performed By: #### S ALYC ACET, CMP #### [facility] [address] [place] [address] Dr. Machelle Garcia Creatinine [Mass/Vol] 0.86 mg/dL Normal 0.55-1.02 [facility] Comment on above: Performed By: #### S ALTOSHA ACET, CMP #### [facility] [address] [place] [address] Dr. Machelle Garcia EGFR-AF IRISH >60 Normal >=60 [facility] Comment on above: Performed By: #### S ALYC ACET, CMP #### [facility] [address] [place] [address] Dr. Machelle Garcia EGFR-NON AF IRISH >60 Normal >=60 [facility] Comment on above: Performed By: #### S ALYC ACET, CMP #### [facility] [address] [place] [address] Dr. Machelle Garcia Globulin (S) [Mass/Vol] 3.4 g/dL Normal [facility] Comment on above: Performed By: #### S ALYC, ACET, CMP #### [facility] [address] [address] [address] Machelle Garcia Glucose [Mass/Vol] 102 mg/dL Normal 74-106 [facility] Comment on above: Performed By: #### S ALYC ACET, CMP #### [facility] [address] [address] [address] Machelle Garcia Potassium [Moles/Vol] 3.6 mmol/L Normal 3.5-5.1 [facility] Comment on above: Performed By: #### S ALYC ACET, CMP #### [facility] [address] [address] Dr. Machelle Garcia Protein [Mass/Vol] 7.3 g/dL Normal 6.4-8.2 [facility] Comment on above: Performed By: #### S ALYC, ACET, CMP #### [facility] [address] [place] [address] Dr. Machelle Garcia Sodium [Moles/Vol] 138 mmol/L Normal 136-145 [facility] Comment on above: Performed By: #### S ALYC, ACET, CMP #### [facility] [address] [address] [address] Machelle Garcia Urea nitrogen [Mass/Vol] 10.0 mg/dL Normal 7.0-18.0 [facility] Comment on above: Performed By: #### S ALYC, ACET, CMP #### [facility] [address] [address] [address] Machelle Garcia Urea nitrogen/Creatinine [Mass ratio] 11.6 mg/mg Normal [facility] Comment on above: Performed By: #### S ALYC, ACET, CMP #### [facility] [address] [address] [address] Machelle Garcia SALICYLATEon 09-12-2022 SALICYLATE <2.8 Normal <=19.9 [facility] Comment on above: Performed By: #### S ALYC, ACET, CMP #### [facility] [address] [address] [address] Machelle Garcia XR CHEST 1 Von 10-03-2021 XR CHEST 1 V EXAMINATION: XR CHES T 1 V, , 10/03/2021 7:50 PM EST INDICATION: COUGH HISTORY: Ordering Provider Reason for Exam: Technologist Note: Additional: COMPARISON: None. TECHNIQUE: Chest x-ray: One view. FINDINGS: No pneumothorax, pleural effusion or focal airspace consolidation. Heart is normal in size. Bony thorax is unremarkable. IMPRESSION: No acute cardiopulmonary process. Electronically authenticated by: ROSEANNE GRADY Date: 2021-10-03 20:52 Normal [facility] CBC AUTO DIFFon 09-30-2021 BASO # 0.0 103/ul Normal 0.0-0.1 [facility] Comment on above: Performed By: #### C BC #### [facility] [address] [place] [address] Dr. Machelle Garcia Basophils/100 WBC (Bld) 0.4 % Normal 0.2-2.0 [facility] Comment on above: Performed By: #### C BC #### [facility] [address] [place] [address] Dr. Machelle Garcia EO # 0.1 103/ul Normal 0.0-0.7 [facility] Comment on above: Performed By: #### C BC #### [facility] [address] [place] [address] Dr. Machelle Garcia Eosinophils/100 WBC (Bld) 1.3 % Normal 0.9-7.0 [facility] Comment on above: Performed By: #### C BC #### [facility] [address] [place] [address] Dr. Machelle Garcia Erythrocyte distribution width (RBC) [Ratio] 12.8 % Normal 11.0-15.0 [facility] Comment on above: Performed By: #### C BC #### [facility] [address] [place] [address] Dr. Machelle Garcia Hematocrit (Bld) [Volume fraction] 40.7 % Normal 36.0-48.0 [facility] Comment on above: Performed By: #### C BC #### [facility] [address] [place] [address] Dr. Machelle Garcia Hemoglobin (Bld) [Mass/Vol] 13.7 g/dL Normal 12.0-16.0 [facility] Comment on above: Performed By: #### C BC #### [facility] [address] [place] [address] Dr. Machelle Garcia IG # 0.03 10e3/ul Normal 0.00-0.03 [facility] Comment on above: Performed By: #### C BC #### [facility] [address] [place] [address] Dr. Machelle Garcia IG % 0.4 % Normal 0.0-0.5 [facility] Comment on above: Performed By: #### C BC #### [facility] [address] [place] [address] Dr. Machelle Garcia LYMPH # 0.6 103/ul Critically low 1.2-3.8 [facility] Comment on above: Performed By: #### C BC #### [facility] [address] [place] [address] Dr. Machelle Garcia Lymphocytes/100 WBC (Bld) 8.8 % Critically low 20.5-60.0 [facility] Comment on above: Performed By: #### C BC #### [facility] [address] [place] [address] Dr. Machelle Garcia MANUAL DIFF REQ NO Normal [facility] Comment on above: Performed By: #### C BC #### [facility] [address] [place] [address] Dr. Machelle Garcia MCH (RBC) [Entitic mass] 29.0 pg Normal 26.7-34.0 [facility] Comment on above: Performed By: #### C BC #### [facility] [address] [place] [address] Dr. Machelle Garcia MCHC (RBC) [Mass/Vol] 33.7 g/dL Normal 29.9-35.2 [facility] Comment on above: Performed By: #### C BC #### [facility] [address] [place] [address] Dr. Machelle Garcia MCV (RBC) [Entitic vol] 86.2 fL Normal 81.0-99.0 [facility] Comment on above: Performed By: #### C BC #### [facility] [address] [address] [address] Machelle Garcia MONO # 1.0 103/ul Critically high 0.3-0.8 [facility] Comment on above: Performed By: #### C BC #### [facility] [address] [address] [address] Machelle Garcia Monocytes/100 WBC (Bld) 14.4 % Critically high 1.7-12.0 [facility] Comment on above: Performed By: #### C BC #### [facility] [address] [place] [address] Dr. Machelle Garcia NEUT # 5.1 103/ul Normal 1.4-6.5 [facility] Comment on above: Performed By: #### C BC #### [facility] [address] [place] [address] Dr. Machelle Garcia Neutrophils/100 WBC (Bld) 74.7 % Normal 43.0-75.0 [facility] Comment on above: Performed By: #### C BC #### [facility] [address] [place] [address] Dr. Machelle Garcia Platelet mean volume (Bld) [Entitic vol] 9.7 fL Normal 9.5-13.5 [facility] Comment on above: Performed By: #### C BC #### [facility] [address] [place] [address] Dr. Machelle Garcia PLT 211 103/ul Normal 150-450 [facility] Comment on above: Performed By: #### C BC #### [facility] [address] [place] [address] Dr. Machelle Garcia RBC 4.72 106/ul Normal 4.20-5.40 [facility] Comment on above: Performed By: #### C BC #### [facility] [address] [place] [address] Dr. Machelle Garcia WBC 6.8 103/ul Normal 4.0-11.0 [facility] Comment on above: Performed By: #### C BC #### [facility] [address] [place] [address] Dr. Machelle Gacria Covid-19 PCR (CVDTBH)on 09-02 SARS-CoV-2 (COVID-19) RNA BERNARDINO+probe Ql (Unsp spec) Detected Critically abnormal NOT DETECTED [facility] Comment on above: Result Comment: This test is not yet approved or cleared by the [place] FDA. When there are no FDA-approved or cleared tests available, and other criteria are met, FDA can make tests available under an emergency access mechanism called an Emergency Use Authorization (EUA). The EUA for this test is supported by the [employer] of Health and Human Service's declaration that circumstances exist to justify the emergency use of in vitro diagnostics for the detection and/or diagnosis of the virus that causes COVID-19. This EUA will remain in effect for the duration of the COVID-19 declaration justifying emergency of IVDs, unless it is terminated or revoked by the FDA (after which the test may no longer be used). Performed By: #### C VDTBH #### [facility] [address] [place] [address] Dr. Machelle Garcia D-DIMERon 09-30-2021 D-DIMER 0.37 mg/L FEU Normal 0.19-0.[address] [facility] Comment on above: Performed By: #### D DIM #### [facility] [address] [place] [address] Dr. Machelle Garcia D-DIMER COMMENTS SEE BELOW Normal [facility] Comment on above: Result Comment: Incr eases in D-Dimer concentration observed with thromboembolic events can be variable due to localization, size, and age of the thrombus. Therefore, a thromboembolic event cannot be diagnosed with certainty on the basis of the reference range. D-Dimers may also be elevated for a variety of disorders including: advanced age, , coronary disease, cancer, liver disease, infection, inflammation, hematoma, DIC, trauma, post-surgery, diabetes, thrombolytic or anticoagulant therapy, stress, and generalized hospitalization. Performed By: #### D DIM #### [facility] [address] [place] [address] Dr. Machelle Garcia PROF 14(COMP METB)on 021 Albumin [Mass/Vol] 3.5 g/dL Normal 3.5-5.0 [facility] Comment on above: Performed By: #### C MP ####[facility] [address] [place], [place] [address]Dr. Machelle Garcia Albumin/Globulin [Mass ratio] 0.9 {ratio} Normal [facility] Comment on above: Performed By: #### C MP ####[facility] [address] [place], [place] [address]Dr. Machelle Garcia ALP [Catalytic activity/Vol] 81 U/L Normal 38-126 [facility] Comment on above: Performed By: #### C MP ####[facility] [address] [place], [place] [address]Dr. Machelle Garcia ALT [Catalytic activity/Vol] 44 U/L Normal 9-52 [facility] Comment on above: Performed By: #### C MP ####[facility] [address] [place], [place] [address]Dr. Machelle Garcia Anion gap [Moles/Vol] 12.2 mmol/L Normal [facility] Comment on above: Performed By: #### C MP ####[facility] [address] [place], [place] [address]Dr. Machelle Garcia AST [Catalytic activity/Vol] 17 U/L Normal 14-36 [facility] Comment on above: Performed By: #### C MP ####[facility] [address] [place], [place] [address]Dr. Machelle Garcia Bilirubin [Mass/Vol] 0.3 mg/dL Normal 0.2-1.3 [facility] Comment on above: Performed By: #### C MP ####[facility] [address] [place], [place] [address]Dr. Machelle Garcia Calcium [Mass/Vol] 8.7 mg/dL Normal 8.4-10.2 [facility] Comment on above: Performed By: #### C MP ####[facility] [address] [place], [place] [address]Dr. Machelle Garcia Chloride [Moles/Vol] 103 mmol/L Normal 98-107 [facility] Comment on above: Performed By: #### C MP ####[facility] [address] [address]Dr. Machelle Garcia CO2 [Moles/Vol] 25.3 mmol/L Normal 22.0-30.0 [facility] Comment on above: Performed By: #### C MP ####[facility] [address] [address]Dr. Machelle Garcia Creatinine [Mass/Vol] 0.87 mg/dL Normal 0.52-1.04 [facility] Comment on above: Performed By: #### C MP ####[facility] [address] [place], [place] [address]Dr. Machelle Garcia EGFR-AF IRISH >60 Normal >=60 [facility] Comment on above: Performed By: #### C MP ####[facility] [address] [place], [place] [address]Dr. Machelle Garcia EGFR-NON AF IRISH >60 Normal >=60 [facility] Comment on above: Performed By: #### C MP ####[facility] [address] [place], [place] [address]Dr. Machelle Garcia Globulin (S) [Mass/Vol] 3.8 g/dL Normal [facility] Comment on above: Performed By: #### C MP ####[facility] [address] [address]Dr. Machelle Garcia Glucose [Mass/Vol] 99 mg/dL Normal 74-106 [facility] Comment on above: Performed By: #### C MP ####[facility] [address] [address]Dr. Machelle Garcia Potassium [Moles/Vol] 3.5 mmol/L Normal 3.4-5.0 [facility] Comment on above: Performed By: #### C MP ####[facility] [address] [place], [place] [address]Dr. Machelle Garcia Protein [Mass/Vol] 7.3 g/dL Normal 6.1-8.2 [facility] Comment on above: Performed By: #### C MP ####[facility] [address] [place], [place] [address]Jt. Machelle Garcia Sodium [Moles/Vol] 137 mmol/L Normal 137-145 [facility] Comment on above: Performed By: #### C MP ####[facility] [address] [place], [place] [address]Bv. Machelle Garcia Urea nitrogen [Mass/Vol] 11.0 mg/dL Normal 6.4-19.3 [facility] Comment on above: Performed By: #### C MP ####[facility] [address] [place], [place] [address]Re. Machelle Garcia Urea nitrogen/Creatinine [Mass ratio] 12.6 mg/mg Normal [facility] Comment on above: Performed By: #### C MP ####[facility] [address] [place], [place] [address]Vx. Machelle Garcia Vital Signs Date Time Vital Sign Value Performing Clinician Gabrielei alejandro 09-15-2022 07:26-0500 Body temperature 98.4 [degF] MD Helio Florian Work Phone: [facility] 09-15-2022 07:26-0500 Diastolic blood pressure 70 mm[Hg] MD Helio Florian Work Phone: [facility] 09-15-2022 07:26-0500 Heart rate 92 /min MD Helio Florian Work Phone: [facility] 09-15-2022 07:26-0500 Respiratory rate 16 /min MD Helio Florian Work Phone: [facility] 09-15-2022 07:26-0500 SaO2% (BldA) [Mass fraction] 97 % MD Helio Florian Work Phone: [facility] 09-15-2022 07:26-0500 Systolic blood pressure 117 mm[Hg] MD Helio Florian Work Phone: [facility] 09-13-2022 00:57-0500 Body height 149.86 cm MD Helio Florian Work Phone: [facility] 09-13-2022 00:57-0500 Body weight 90.71 kg MD Helio Florian Work Phone: [facility] Encounters Encounter Date Encounter Type Care Provider Facility Start: 06-30-2024 ambulatory Dante Esparza acility:[facility] Start: 09-13-2022 End: 09-15-2022 Evaluation and management of inpatient MD Helio Florian Work Phone: [facility] Start: 09-12-2022 End: 09-13-2022 ambulatory TAL IQBAL Facility:[facility] Start: 10-19-2021 End: 10-19-[address] HELIO FLORIAN Facility:[facility] Start: 10-03-2021 End: 10-03-[address] HELIO FLORIAN Facility:[facility] Start: 09-30-2021 End: 09-30-[address] SUMI DURON Facility:[facility] Plan of Treatment Date Care Activity Detail Author Start: 09-15-2022 [facility] Start: 09-13-2022 Hospital admission [facility] Patient Education Bipolar Disord er ([place]) [facility] [place] Instructions [facility] Work Phone: Patient referral [facility] Work Phone: Payers Date Payer Category Payer Self-pay [id number] 2002 Unknown [id number] 2002 Unknown [id number] 2002 Unknown [id number] 2002 Unknown [id number] 1957 Medicaid [id number] Unknown [id number] Social History Date Type Detail Facility Start: 09-13-2022 Tobacco smoking stat [facility] Smoker (finding) [facility] Start: 2000 Sex Assigned At Female F [facility] Goals Date Patient Goal Desired Activity /State Functional Status Date Assessment Result Facility 09-15-2022 Functional status Patient at Baseline [facility] Work Phone: Mental Status Date Assessment Result Facility 09-15-2022 Cognitive function Cognitive Sta tus Patient at Baseline [facility] Work Phone: Discharge summary 09-15-2022 Note Date & Type Note Facility 09-15-2022 Discharge summary Note Date/Time September 15, 2022 10:25am [facility] [address] [place] [address] Discharge Summary Signed Patient: Kay Busch MR#: [id number] : 2000 Acct:[id number] Age/Sex: 22 / F Adm Date: 2 Loc: Room: [address] [place] [address]: Param Rao MD Copies to: MD Helio Haley MD~ Providers Date of Discharge: 09/15/22 Discharging Provider: Param Rao Primary Care Provider: Helio Florian Discharge Diagnosis (1) Bipolar disorder: Final Diagnosis Final Discharge Diagnosis: Bipolar I Disorder Summary Hospital Course Hospital course: According to admission note: Ms. Busch is a 22 year old female who presented due to concern for depression and suicidal ideation with plan to cut her wrist. Upon assessment, patient reported that over the past 1 month she has been stressed out.? She reported that she is post be moving out at mom's house and moving their fianc?.? She reported that she stopped taking her medication roughly a year ago and feels like things have gotten worse since then.? She stated that she stopped her medications because she felt that she did not need them anymore.? She reported that things have bubbled up and wanted to come and get help.? She reported that she has been stressed about everything.? She reported the medication that she was previously taking was helping her in the past.? She reported that she has been diagnosed with borderline personality disorder when she was 20.? She also reported history of josé miguel including increased energy, decreased sleep, impulsive behavior and increased spending.? She reported that this has lasted roughly 7 days in the past. Past psych history: Bipolar disorder Past hospitalizations: Denies Past suicide attempts: History of self-harm by cutting Family psych history: Bipolar disorder Previous medications: Vraylar and Wellbutrin Alcohol and drug use: Marijuana use Living: With family Employment: employed Patient was restarted on previously tolerated medications of Wellbutrin and Vraylar. She tolerated the medications without any problems and did not report any side effects. She had rapid improvement of her symptoms and denied any suicidal ideation on the second day of her admission. She was monitored for an extra day due to ensuring stability of mood. She did not exhibit any behavior concerning for suicidality during hospital course. She did not have any conflict with peers or staff. On the day of discharge she reported she is feeling better. She denied any further depression, suicidality, or irritability. She was comfortable discharge plan home and stated that she will follow-up with outpatient services. She was future oriented and stated that shewould live with mom and eventually move in with her fianc?. Condition Condition at Discharge: Stable Status at Discharge Cognitive/behavioral status at discharge: Mental Status Exam: Appearance: grossly normal Mental Status: mental status grossly normal Mood: Euthymic mood Affect: Normal affect Speech and Movement: speech and movement normal and speech clear Attitude: cooperative Thought Process: normal Thought Content: Denied hallucinations, no homicidality and no suicidality Insight: Good Judgment: Good Functional status at discharge: independent ambulation Overall status at discharge: patient is back to baseline Time Spent with Patient Time spent providing/coordinating discharge services (# min): 30 Exam Physical Exam Vital Signs: Temp Pulse Resp BP Pulse Ox O2 Del Method 98.4 F 92 H 16 117/70 97 Room Air 09/15/22 07:26 09/15/22 07:26 09/15/22 07:26 09/15/22 07:26 09/15/22 07:26 09/15/22 07:26 Discharge Plan Discharge Plan Patient Disposition: Home Activity: No Activity Restriction Diet: Regular Additional Instructions: Regular diet. No activity restrictions. 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 (insert date/time here) Intake: (Insert date/time here) Please bring a copy of your photo ID, insurance card, and proof of household income.? Psychiatry: (Insert date/time here) Group: (Insert date/time here ) ) Helio Florian MD [Primary Care Provider] - (Contact this provider for your medical needs) Documented By: Param Rao MD 09/15/22 1022 Signed By: <Electronically signed by Param Rao MD> 09/15/22 1037 [facility] Work Phone: Progress note 09-14-2022 Note Date & Type Note Facility 09-14-2022 Progress note Note Date/Time September 14, 2022 12:20pm [facility] [address] [place] [address] Psychiatry Progress Note Signed Patient: Kay Busch MR#: [id number] : 2000 Acct:[id number] Age/Sex: 22 / F Adm Date: 2 Loc: Room: [address] [place] [address] Type : ADM IN Attending Dr: Param Rao MD Copies to: ~ Date of Service: 09/14/2022 Subjective Subjective Narrative: Ms. Busch reported that she is doing fine. She stated that she is doing really good and feels confident that she will be okay. She stated that she justwants to go home and reported that journaling has been helping her. She denied any side effects to current medications and stated that she had been on these medications before. Mental Status Exam: Appearance: grossly normal Mental Status: mental status grossly normal Mood: Euthymic mood Affect: Normal affect Speech and Movement: speech and movement normal and speech clear Attitude: cooperative Thought Process: normal Thought Content: Denied hallucinations, no homicidality and no suicidality Insight: Good Judgment: Good Exam Physical Exam Vital Signs: Temp Pulse Resp BP Pulse Ox O2 Del Method 98.5 F 98 H 16 122/75 97 Room Air 09/14/22 07:30 09/14/22 07:30 09/14/22 07:30 09/14/22 07:30 09/14/22 07:30 09/14/22 07:30 Assessment/Plan Assessment/Plan (1) Bipolar disorder: Code(s): F31.9 - Bipolar disorder, unspecified Status: Acute Plan Feeling good today. Denied any suicidal ideation or depression Somewhat tearful and labile when plan of not going home was discussed, anticipate discharge tomorrow Continue Vraylar and Wellbutrin Continue to monitor mental status Encourage group participation and medication compliance Risk benefits alternatives explained Documented By: Param Rao MD 09/14/22 1219 Signed By: <Electronically signed by Param Rao MD> 09/14/22 1220 [facility] [facility] Work Phone: History and physical note 09-13-2022 Note Date & Type Note Facility 09-13-2022 History and physical note Note Date/Time September 13, 2022 12:48pm [facility] [address] [place] [address] Psychiatry H&P Signed Patient: Kay Busch MR#: [id number] : 2000 Acct:[id number] Age/Sex: 22 / F Adm Date: 2 Loc: Room: [address] [place] [address] Type: ADM IN Attending Dr: Param Rao MD Copies to: MD Helio Haley MD~ Date of Service: 09/13/2022 HPI History of Present Illness History of present illness: Ms. Busch is a 22 year old female who presented due to concern for depressionand suicidal ideation with plan to cut her wrist. Upon assessment, patient reported that over the past 1 month she has been stressed out. She reported that she is post be moving out at mom's house and moving their fianc?. She reported that she stopped taking her medication roughly a year ago and feels like things have gotten worse since then. She stated that she stopped her medications because she felt that she did not need them anymore. She reported that things have bubbled up and wanted to come and get help. She reported that she has been stressed about everything. She reported the medication that she was previously taking was helping her in the past. She reported that she has been diagnosed with borderline personality disorder when she was 20. She also reported history of josé miguel including increased energy, decreased sleep, impulsive behavior and increased spending. She reported that this has lasted roughly 7 days in the past. Past psych history: Bipolar disorder Past hospitalizations: Denies Past suicide attempts: History of self-harm by cutting Family psych history: Bipolar disorder Previous medications: Vraylar and Wellbutrin Alcohol and drug use: Marijuana use Living: With family Employment: employed Review of symptoms: Constitutional: Denies chills and Denies fever(s) Eyes: Denies change in vision ENT: Denies abnormal hearing Cardiovascular: Denies chest pain Respiratory: Denies chest congestion and Denies cough Gastrointestinal: Denies change in bowel habits Genitourinary: Denies dysuria Musculoskeletal: Denies atrophy and Denies myalgias Integumentary/Breasts: Denies dry skin Neurologic: Denies abnormal gait and Denies abnormal movements Psychiatric: Reports depression and suicidal ideation Physical exam: Const: cooperative Nutritional Appearance: average body habitus Orientation: alert, awake and oriented x3 HEENT: Head normal to inspection, hearing grossly normal bilaterally, external nose normal, face symmetric Eyes: appearance normal, both eyes and all related structures, sclerae normal Neck: normal visual inspection and full ROM Resp: normal respiratory effort, able to speak in complete sentences and symmetric chest movement Cardio: regular rate GI: normal to inspection and non-distended : deferred Skin: no rashes or lesions noted Neuro: CNII: Visual garza intact, CNIII,IV,: EOM intact, no nystagmus. Pupilsequal, round, reactive to light and accommodation, CNV: Sensation intact to light touch, CNVII: Raises eyebrows, smile/frown, puff out cheeks symmetrically, CNVIII: Hearing intact bilaterally, CNIX,X: Voice normal, soft palate elevation normal, symmetrical, CNXI: Shoulder shrug strong, equal bilaterally, CNXII: Tongue protrusion midline, movement symmetrical. Extrem: normal to inspection and full ROM Mental Status Exam: Appearance: grossly normal Mental Status: mental status grossly normal Mood: dysthymic mood Affect: dysphoric affect Speech and Movement: speech and movement normal and speech clear Attitude: cooperative Thought Process: normal Thought Content: Denied hallucinations, no homicidality, reported suicidality Insight: fair Judgment: fair PMFSH Vaccinated for COVID-19?: No Medical History (Updated 09/13/22 @ 12:48 by Param Rao MD) No pertinent past medical history Surgical History (Updated 09/13/22 @ 01:11 by Rogelio Currie RN) No pertinent past surgical history Social History Smoking Status: Current every day smoker Tobacco Type: e-cigarettes Substance Use Type: Marijuana Substance Abuse Comment: 2-3 joints daily Meds Medications and Allergies Allergies No Known Allergies Allergy (Verified 09/13/22 00:56) Home Medications No known home meds 09/13/22 [History Confirmed 09/13/22] Exam Physical Exam Vital Signs: Temp Pulse Resp BP Pulse Ox O2 Del Method 97.4 F L 76 16 127/77 97 Room Air 09/13/22 07:30 09/13/22 07:30 09/13/22 07:30 09/13/22 07:30 09/13/22 07:30 09/13/22 09:00 Assessment/Plan (1) Bipolar disorder: Code(s): F31.9 - Bipolar disorder, unspecified Status: Acute Plan Patient presenting due to concern for depression and suicidal ideation. She waspreviously on Vraylar and Wellbutrin which she thought were helpful We will restart Vraylar and Wellbutrin Continue to monitor mental status Encourage group participation and medication compliance Risk benefits alternatives explained Documented By: Param Rao MD 09/13/22 0305 Signed By: <Electronically signed by Param Rao MD> 09/13/22 6788 [facility] Work Phone: Evaluation note Note Date & Type Note Facility Evaluation note Diagnosis Onset Date Bipolar disorder acute [facility] Work Phone: Hospital Discharge instructions Note Date & Type Note Facility Hospital Discharge instructions Additional Instructions Regular diet. No activity restrictions. [facility] Work Phone: Chief Complaint and Reason for Visit Chief Complaint Bipolar Disorder Reason for Visit Bipolar disorder Advance Directives No Advanced Directives Records Found Advance Directive Response Recorded Date/ Time Advance Directives No February 12 1:08pm Summary Purpose Family History No Family History Records FoundNo Family History Records Found Additional Source Comments Care Teams (unrecognized sec tion and content) Team Status: Inactive Member Role Status Dates Helio Florian MD Primary Care Provider Active Param Rao MD Admit Provider, Attending Provider Active Team Status: Active Member Role Status Dates Helio Florian MD Primary Care Provider Active INFORMATION SOURCE (unrecogn ized section and content) DATE CREATED AUTHOR 09/21/2022 [facility] DATE CREATED AUTHOR 'S ORGANIZ ATION 07/01/2024 [facility] FOR RECORDS PERTAINING TO PATIENTS WHO ARE OR HAVE BEEN ENROLLED IN A CHEMICAL DEPENDENCY/SUBSTANCEABUSE PROGRAM, SOME INFORMATION MAY BE OMITTED. This clinical summary was aggregated from multiple sources. Caution should be exercised in using it in the provision of clinical care. This summary normalizes information from multiple sources, and as a consequence, information in this document may materially change the coding, format and clinical context of patient data. In addition, data may be omitted in some cases. CLINICAL DECISIONS SHOULD BE BASED ON THE PRIMARY CLINICAL RECORDS. [facility] [employer] provides no warranty or guarantee of the accuracy or completeness of information in this document.
[2024-08-31 13:28] LABS: Basophils Absolute Auto 0.1 10^3/uL (0.0-0.1); Basophils Percent Auto 0.5 % (0.2-2.0); Eosinophils Absolute Auto 0.3 10^3/uL (0.0-0.7); Eosinophils Percent Auto 2.5 % (0.9-7.0); Hematocrit 43.7 % (36.0-48.0); Hemoglobin 15.2 g/dL (12.0-16.0); Immature Granulocytes Abs Auto 0.06 10^3/uL (0.00-0.03); Immature Granulocytes Pct Auto 0.5 % (0.0-0.5); Lymphocytes Percent Auto 24.1 % (20.5-60.0); Mean Corpuscular HGB Conc 34.8 g/dL (29.9-35.2); Mean Corpuscular Hemoglobin 30.8 pg (26.7-34.0); Mean Corpuscular Volume 88.6 fL (81.0-99.0); Mean Platelet Volume 8.7 fL (9.5-13.5); Monocytes Absolute Auto 0.8 10^3/uL (0.3-0.8); Monocytes Percent Auto 6.9 % (1.7-12.0); Neutrophils Percent Auto 65.5 % (43.0-75.0); Platelet Count 299 10^3/uL (150-450); Red Blood Count 4.93 10^6/uL (4.20-5.40); Red Cell Distribution Width 12.2 % (11.0-15.0); White Blood Count 12.2 10^3/uL (4.0-11.0)
[2024-08-31 13:54] LABS: HCG Qualitative NEGATIVE (NEGATIVE); Internal Control Within Normal Limits
[2024-08-31 13:57] VITALS: BP 113/67; PULSE 88; O2SAT 99
--- NOTE | 2024-08-31 13:57 | XR_ITS ---
The [address] [address] Patient Name: KASH STEVE MRN: [id number] date: 2000 Sex: F Assigned Patient Location: ER Current Patient Location: ER Accession/Order Number: [id number] Exam Date: 08/31/2024 14:05 Report Date: 08/31/2024 15:41 At the request of: HARI HUTTON Procedure: XR abdomen 1V EXAM: XR abdomen 1V HISTORY: Pain, possible constipation COMPARISON: None. TECHNIQUE: Supine KUB FINDINGS: Mild diffuse increased small bowel colon gas without focal distention. Moderate colonic stool. Soft tissues unremarkable. No calcification. Lung bases clear. XR/XR abdomen 1V IMPRESSION: Moderate colonic stool. Increased bowel gas without evidence of obstruction. Electronically authenticated by: TEA MALDONADO Date: 08/31/2024 15:41
[2024-08-31 14:09] LABS: Bilirubin Urine NEGATIVE (NEGATIVE); Blood Urine NEGATIVE (NEGATIVE); Clarity Urine CLEAR (CLEAR); Color Urine LT. YELLOW (YELLOW); Glucose Urine UA NEGATIVE (NEGATIVE); Ketones Urine NEGATIVE (NEGATIVE); Leukocyte Esterase Urine NEGATIVE (NEGATIVE); Nitrite Urine NEGATIVE (NEGATIVE); Protein Urine NEGATIVE (NEG/TRACE); Specific Gravity Urine 1.015 (1.005-1.025); Urobilinogen Urine 0.2 EU/dL (0.2-1.0)
[2024-08-31 14:16] LABS: Bacteria Urine TRACE #/HPF (NONE SEEN); Crystals Seen? None Seen #/HPF (None Seen); Mucus Urine NONE SEEN (NONE SEEN); RBC Urine NONE SEEN #/HPF (0-2); Squamous Epithelial Cell Urine MANY #/LPF (NONE/RARE); WBC Urine NONE SEEN #/HPF (NONE SEEN)
[2024-08-31 14:17] LABS: Anion Gap 16.8; BUN Creatinine Ratio 15.6; Calcium 9.1 mg/dL (8.5-10.1); Carbon Dioxide 24.2 mmol/L (21.0-32.0); Chloride 104 mmol/L (98-107); Estimated GFR (African America >60 (>=60 mL/min/1.73m^2); Estimated GFR (Non-African Ame >60 (>=60 mL/min/1.73m^2); Glucose 100 mg/dL (74-106); Sodium 141 mmol/L (136-145)
[2024-08-31 14:17] LABS: Cast Seen? NONE SEEN #/LPF (NONE SEEN); Urine Culture Indicated NO
[2024-08-31 14:37] LABS: Aspartate Amino Transferase 14 U/L (15-37); Bilirubin Direct 0.1 mg/dL (0.0-0.2); Bilirubin Total 0.4 mg/dL (0.2-1.0)
[2024-08-31 14:38] LABS: Alanine Aminotransferase 27 U/L (14-59); Albumin Globulin Ratio 0.9; Albumin Level 3.5 g/dL (3.4-5.0); Alkaline Phosphatase 92 U/L (46-116); Amylase 97 U/L (25-115); Total Protein 7.5 g/dL (6.4-8.2)
== END 2024-08-31 16:15 | disposition home or self-care (01) ==
PROVIDERS: Emergency Provider Emergency Medicine; PCP Family Medicine
DX: K59.00 Constipation, unspecified (principal); Z87.891 Personal history of nicotine dependence
CPT/HCPCS: 36415; 74018; 80048; 80076; 81001; 82150; 83690; 84703; 85025; 99285

== ENCOUNTER 2025-02-16 12:22 | Outpatient (OUT) | payer OTHER, SELFPAY ==
[2025-02-16 13:37] LABS: Alanine Aminotransferase 44 U/L (14-59); Albumin Globulin Ratio 0.9; Albumin Level 3.7 g/dL (3.4-5.0); Alkaline Phosphatase 103 U/L (46-116); Anion Gap 14.3; Aspartate Amino Transferase 24 U/L (15-37); BUN Creatinine Ratio 19.8; Bilirubin Total 0.4 mg/dL (0.2-1.0); Calcium 9.3 mg/dL (8.5-10.1); Carbon Dioxide 24.6 mmol/L (21.0-32.0); Chloride 105 mmol/L (98-107); Estimated GFR (African America >60 (>=60 mL/min/1.73m^2); Estimated GFR (Non-African Ame >60 (>=60 mL/min/1.73m^2); Globulin 4.2 g/dL; Glucose 97 mg/dL (74-106); Potassium 3.9 mmol/L (3.5-5.1); Sodium 140 mmol/L (136-145); Thyroid Stimulating Hormone 3.202 uIU/mL (0.358-3.740); Total Protein 7.9 g/dL (6.4-8.2)
[2025-02-16 13:39] LABS: HCG Quantitative <1 mIU/mL
== END 2025-02-16 12:23 | disposition home or self-care (01) ==
PROVIDERS: PCP Family Medicine; Visit Provider Psychiatry & Neurology Psychiatry
DX: F31.9 Bipolar disorder, unspecified (principal); Z79.899 Other long term (current) drug therapy
CPT/HCPCS: 36415; 80053; 84443; 84702

== ENCOUNTER 2025-03-24 10:33 | Outpatient (OUT) | payer OTHER, SELFPAY ==
--- OUTSIDE RECORDS SUMMARY | 2025-03-24 10:56 | XMS_ITS | CCD ---
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 Name Role Phone MD Helio Florian Primary Care Provider [phone] MD Param Rao Admit Provider MD Param Rao Attending Provider MARKER, DR JONAS Admitting Unavailable MARKER, DR JONAS Attending Unavailable MARKER, DR JONAS Consulting Unavailable STEFANEREChris, DR HELIO Verma Primary Care Unavailable CHIQUI, [...] Primary Care Unavailable TAL IQBAL Attending Unavailable FARIDA, TAL Admitting Unavailable Helio Florian MD Primary Care Provider Dante Valadez Attending Unavailab Dante Corral Admitting Unavailab Helio Cornejo Primary Care Unavailable RENEE DIEZ Attending Unavailable BREANA POSADA Attending Unavailable Medications Current Medications Medication Drug Class(es) Dates Sig (Normalized) Sig (Original) 24 hr buPROPion hydrochloride 150 mg extended release oral tablet (6 sources) Aminoketone Start: 09-15-2022 take 150 mg by mouth once daily in the morning Bupropion Hcl Active 150 MG PO Every morning September 15, 2022 12:00am End: 03-23-2025 take 1 tablet by mouth every twenty-four hours in the morning buPROPion XL (Wellbutrin XL) 300 MG 24 hr tablet Take 300 mg by mouth in the morning. 03/23/2025 Discontinued cariprazine 3 mg oral capsule (8 sources) Atypical Antipsychotic Start: 09-15-2022 take 1 capsule by mouth once daily Cariprazine (Vraylar) 3 mg Capsule Active 3 MG PO Daily September 15, 2022 12:00am take 1 capsule by mo uth once daily Cariprazine HCl (Vraylar) 1.5 MG capsule Take 1.5 mg by mouth Daily Active End: 03-23-2025 take 1 capsule by mouth in the morning Cariprazine HCl (Vraylar) 6 MG capsule Take 6 mg by mouth in the morning. 03/23/2025 Discontinued letrozole 2.5 mg oral tablet (2 sources) Aromatase Inhibitor Start: 03-23-2025 End: 03-28-2025 take 1 tablet by mouth once daily letrozole (Femara) 2.5 MG chemo tablet Indications: Female infertility , PCOS (polycystic ovarian syndrome) Take 1 tablet (2.5 mg total) by mouth Daily for 5 days. 5 tablet 03/23/2025 03/28/2025 Active 24 hr metFORMIN hydrochloride 500 mg extended release oral tablet (2 sources) Biguanide Start: 03-23-2025 End: 04-22-2025 take 1 tablet by mouth every twenty-four hours at mealtime metFORMIN XR (Glucophage-XR) 500 MG 24 hr tablet Indications: Female infertility , PCOS (polycystic ovarian syndrome) Take 1 tablet (500 mg) by mouth in the evening. Take with meals Do not crush, chew, or split. 30 tablet 11 03/23/2025 04/22/2025 Active 24 hr nicotine 0.583 mg/hr transdermal system (1 source) Cholinergic Nicotinic Agonist Start: 09-15-2022 Nicotine Active 1 EACH TRANSDERML Daily September 15, 2022 12:00am sertraline 25 mg oral tablet (2 sources) Serotonin Reuptake Inhibitor Start: 03-18-2025 take 1 tablet by mouth once daily Zoloft 25 MG tablet Take 25 mg by mouth Daily 03/18/2025 Active 0.5 ml testosterone enanthate 150 mg/ml auto-injector (5 sources) Androgen End: 03-23-2025 inject 75 mg by subcutaneous injection every week testosterone enanthate (Xyosted) 75 MG/0.5ML solution auto-injector Inject 75 mg under the skin once a week. 03/23/2025 Discontinued 24 hr venlafaxine 37.5 mg extended release oral capsule (5 sources) Serotonin and Norepinephrine Reuptake Inhibitor Start: 07-01-2024 End: 03-23-2025 take 1 capsule by mouth once daily at mealtime venlafaxine XR (Effexor XR) 37.5 MG 24 hr capsule TAKE 1 CAPSULE BY MOUTH EVERY DAY WITH FOOD FOR 30 DAYS 07/01/2024 03/23/2025 Discontinued Completed/Discontinued Medications Medication Drug Class(es) Dates Sig (Normalized) Sig (Original) azithromycin 250 mg oral tablet (4 sources) Macrolide Antimicrobial Start: 09-09-2024 End: 03-13-2025 azithromycin (Zithromax) 250 MG tablet Indications: Acute cough , Bronchitis Take 1 tablet (250 mg) by mouth Daily Take 2 tabs on day 1 and 1 tab on days 2-5 then stop 6 tablet 09/09/2024 03/13/2025 Discontinued (Therapy completed) benzonatate 100 mg oral capsule (4 sources) Non-narcotic Antitussive Start: 09-09-2024 End: 03-13-2025 take 1 capsule by mouth three times daily as needed for cough benzonatate (Tessalon Perles) 100 MG capsule Indications: Acute cough , Bronchitis Take 1 capsule (100 mg) by mouth 3 (three) times a day as needed for cough Do not crush or chew. 21 capsule 09/09/2024 03/13/2025 Discontinued (Therapy completed) hydrOXYzine hydrochloride 25 mg oral tablet (4 sources) Antihistamine End: 03-13-2025 take 1 tablet by mouth three times daily as needed hydrOXYzine HCl (Atarax) 25 MG tablet Take 25 mg by mouth 3 (three) times a day as needed. 03/13/2025 Discontinued (Therapy completed) ibuprofen 600 mg oral tablet (4 sources) Nonsteroidal Anti-inflammatory Drug End: 03-13-2025 take 1 tablet by mouth every six hours as needed ibuprofen 600 MG tablet Take 600 mg by mouth every 6 (six) hours if needed. 03/13/2025 Discontinued (Therapy completed) OXcarbazepine 300 mg oral tablet (4 sources) Anti-epileptic Agent End: 03-13-2025 take 1 tablet by mouth in the morning OXcarbazepine (Trileptal) 300 MG tablet Take 300 mg by mouth in the morning and 300 mg in the evening. 03/13/2025 Discontinued (Therapy completed) Problems Active Problems Problem Classification Problem Date Documented Da te Episodic/Chronic Chronic obstructive pulmonary disease and bronchiectasis (2 sources) Bronchitis; Translations: [Bronchitis, not specified as acute or chronic] 09-09-2024 Episodic Female infertility (2 sources) Female infertility; Translations: [Female infertility, unspecified] 03-23-2025 Chronic Headache; including migraine (3 sources) Headache; including migraine; Translations: [HEADACHE UNSPECIFIED] Onset: 09-30-2021 Mood disorders (2 sources) Bipolar disorder; Translations: [Bipolar disorder, unspecified] 09-13-2022 Chronic Mood disorders (1 source) Mood disorders; Translations: [DEPRESSION UNSPECIFIED] Onset: 09-14-2022 Other endocrine disorders (2 sources) Polycystic ovary syndrome; Translations: [Polycystic ovarian syndrome] 03-23-2025 Chronic Other lower respiratory disease (2 sources) Cough; Translations: [Acute cough] 09-09-2024 Episodic Other nutritional; endocrine; and metabolic disorders (1 [...] Other half-way (current) drug therapy; Translations: [OTH SNF CURRENT DRUG THERAPY] Onset: 10-05-2021 Episodic Residual [...] on 09-13-2022 Cholesterol [Mass/Vol] 141 mg/dL 140-200 [facility] Comment on above: Chol less than 200 m g/dl low riskChol 201-239 mg/dl borderline riskChol 240 mg/dl and greater high risk Cholesterol in LDL Calc [Mas s/Vol]Ordered By: Param Rao on 09-13-2022 Cholesterol in LDL [Mass/Vol] 94 mg/dL 0-100 [facility] Comment on above: LDL ATP III CLASSIFI CATIONLDL less than 100 mg/dL OptimalLDL 100-129 mg/dL Near or above optimalLDL 130-159 mg/dL Borderline highLDL 160-189 mg/dL HighLDL greater than 189 mg/dL Very high Cholesterol in VLDL Calc [Ma ss/Vol]Ordered By: Param Rao on 09-13-2022 Cholesterol in VLDL [Mass/Vol] 9 mg/dL [facility] No Panel InformationOrdered By: Param Rao on 09-13-2022 25-Hydroxy Vitamin D Total 11.9 ng/mL 30-100 [facility] Comment on above: VITAMIN D STATUS [...] Cholesterol in HDL [Mass/Vol] 38 mg/dL 35-85 [facility] Comment on above: HDL CHOL ATP-III CLA SSIFICATION Cardiovascular RiskHDL > or equal to 60 mg/dL LOWHDL < 40 mg/dL HIGH Serum or plasma total choles terol/high density lipoprotein (HDL) cholesterol mass ratOrdered By: Param Rao on 09-13-2022 Cholesterol.total/Chol esterol in HDL [Mass ratio] 3.7 {ratio} <5.0 [facility] TSH DL <= 0.005 mIU/L QnOrde red By: Param Rao on 09-13-2022 TSH Qn 0.81 m[IU]/L 0.45-5.33 [facility] Triglyceride [Mass/volume] i n Serum or PlasmaOrdered By: Param Rao on 09-13-2022 Triglyceride [Mass/Vol] 45 mg/dL 35-149 [facility] Comment on above: TRIG ATP III CLASSIF ICATIONTRIG less than 150 mg/dL NormalTRIG 150-199 mg/dL Borderline highTRIG 200-500 mg/dL High TRIG greater than 500 mg/dL Very highStandard traceable to the Center for Disease Conrtrol and Prevention (CDC) test method. ACETAMINOPHENon 09-12-2022 Acetaminophen [Mass/Vol] ug/mL Critically low 10.0-30.0 [facility] [place] Comment on above: Performed By: #### S ALYC, ACET, CMP #### [facility] [address] [place] [address] Dr. Machelle Garcia CBC AUTO DIFFon 09-12-2022 BASO # 0.0 103/ul Normal 0.0-0.1 [facility] [place] Comment on above: Performed By: #### C BC #### [facility] [address] [place] [address] Dr. Machelle Garcia Basophils/100 WBC (Bld) 0.4 % Normal 0.2-2.0 [facility] Comment on above: Performed By: #### C BC #### [facility] [address] [place] [address] Dr. Machelle Garcia EO # 0.1 103/ul Normal 0.0-0.7 [facility] [place] Comment on above: Performed By: #### C BC #### [facility] [address] [place] [address] Dr. Machelle Garcia Eosinophils/100 WBC (Bld) 0.8 % Critically low 0.9-7.0 [facility] [place] Comment on above: Performed By: #### C BC #### [facility] [address] [place] [address] Dr. Machelle Garcia Erythrocyte distribution width (RBC) [Ratio] 12.4 % Normal 11.0-15.0 [facility] [place] Comment on above: Performed By: #### C BC #### [facility] [address] [place] [address] Dr. Machelle Garcia Hematocrit (Bld) [Volume fraction] 40.4 % Normal 36.0-48.0 [facility] [place] Comment on above: Performed By: #### C BC #### [facility] [address] [place] [address] Dr. Machelle Garcia Hemoglobin (Bld) [Mass/Vol] 14.3 g/dL Normal 12.0-16.0 [facility] [place] Comment on above: Performed By: #### C BC #### [facility] [address] [place] [address] Dr. Machelle Garcia IG # 0.02 10e3/ul Normal 0.00-0.03 [facility] [place] Comment on above: Performed By: #### C BC #### [facility] [address] [place] [address] Dr. Machelle Garcia IG % 0.3 % Normal 0.0-0.5 [facility] Comment on above: Performed By: #### C BC #### [facility] [address] [place] [address] Dr. Machelle Garcia LYMPH # 1.0 103/ul Critically low 1.2-3.8 [facility] Comment on above: Performed By: #### C BC #### [facility] [address] [place] [address] Dr. Machelle Garcia Lymphocytes/100 WBC (Bld) 14.1 % Critically low 20.5-60.0 [facility] [place] Comment on above: Performed By: #### C BC #### [facility] [address] [place] [address] Dr. Machelle Garcia MANUAL DIFF REQ NO Normal [facility] Comment on above: Performed By: #### C BC #### [facility] [address] [place] [address] Dr. Machelle Garcia MCH (RBC) [Entitic mass] 29.7 pg Normal 26.7-34.0 [facility] Comment on above: Performed By: #### C BC #### [facility] [address] [place] [address] Dr. Machelle Garcia MCHC (RBC) [Mass/Vol] 35.4 g/dL Critically high 29.9-35.2 [facility] Comment on above: Performed By: #### C BC #### [facility] [address] [place] [address] Dr. Machelle Garcia MCV (RBC) [Entitic vol] 83.8 fL Normal 81.0-99.0 [facility] [place] Comment on above: Performed By: #### C BC #### [facility] [address] [place] [address] Dr. Machelle Garcia MONO # 0.9 103/ul Critically high 0.3-0.8 [facility] Comment on above: Performed By: #### C BC #### [facility] [address] [place] [address] Dr. Machelle Garcia Monocytes/100 WBC (Bld) 12.6 % Critically high 1.7-12.0 [facility] Comment on above: Performed By: #### C BC #### [facility] [address] [place] [address] Dr. Machelle Garcia NEUT # 5.2 103/ul Normal 1.4-6.5 [facility] Comment on above: Performed By: #### C BC #### [facility] [address] [place] [address] Dr. Machelle Garcia Neutrophils/100 WBC (Bld) 71.8 % Normal 43.0-75.0 [facility] Comment on above: Performed By: #### C BC #### [facility] [address] [address] [address] Machelle Garcia Platelet mean volume (Bld) [Entitic vol] 9.9 fL Normal 9.5-13.5 [facility] [place] Comment on above: Performed By: #### C BC #### [facility] [address] [address] [address] Machelle Garcia PLT 245 103/ul Normal 150-450 [facility] Comment on above: Performed By: #### C BC #### [facility] [address] [address] [address] Machelle Garcia RBC 4.82 106/ul Normal 4.20-5.40 [facility] [place] Comment on above: Performed By: #### C BC #### [facility] [address] [address] [address] Machelle Garcia WBC 7.2 103/ul Normal 4.0-11.0 [facility] [place] Comment on above: Performed By: #### C BC #### [facility] [address] [address] [address] Machelle Garcia DRUG SCREEN RAPID (URINE)on 09-12-2022 AMP Negative Normal NEGATIVE [facility] [place] Comment on above: Performed By: #### D RUGRPD ####[facility] [address] [address]Dr. Machelle Garcia BAR Negative Normal NEGATIVE [facility] Comment on above: Performed By: #### D RUGRPD ####[facility] [address] [address]Dr. Machelle Garcia BUP Negative Normal NEGATIVE [facility] Comment on above: Performed By: #### D RUGRPD ####[facility] [address] [id number]. Machelle Garcia BZO Negative Normal NEGATIVE [facility] Comment on above: Performed By: #### D RUGRPD ####[facility] [address] [id number] Garcia JOHN Negative Normal NEGATIVE [facility] Comment on above: Performed By: #### D RUGRPD ####[facility] [address] [place], [place] [id number]. Machelle Garcia CUT-OFFS SEE BELOW Normal [facility] [place] Comment on above: Result Comment: AMP (Amphetamine): 500ng/mL, BAR (Barbituates): 200 ng/mL, BZO (Benzodiazepines): 150 ng/mL, BUP (Buprenorphine): 10 ng/mL, JOHN (Cocaine): 150 ng/mL, mAMP (Methamphetamine): 500 ng/mL, MTD (Methadone): 200 ng/mL, OPI (Opiates): 100 ng/mL, OXY (Oxycodone): 100 ng/mL, PCP (Phencyclidine): 25 ng/mL, PPX (Propoxyphene): 300 ng/mL, THC (Cannabinoids): 50 ng/mL, TCA (Trycyclic Antidepressants): 300 ng/mL Performed By: #### D RUGRPD ####[facility] [address] [place], [place] [address]Dr. Machelle Garcia DRUG CUT HEADER DRUG CLASS TEST SYSTEM CUT-OFF CONCENTRATIONS ARE FOLLOWS: Normal [facility] Comment on above: Performed By: #### D RUGRPD ####[facility] [address] [place], [place] [address]Dr. Machelle Garcia mAMP Negative Normal NEGATIVE [facility] Comment on above: Performed By: #### D RUGRPD ####[facility] [address] [place], [place] [address]Dr. Machelle Garcia MTD Negative Normal NEGATIVE [facility] Comment on above: Performed By: #### D RUGRPD ####[facility] [address] [place], [place] [address]Dr. Machelle Garcia OPI Negative Normal NEGATIVE [facility] Comment on above: Performed By: #### D RUGRPD ####[facility] [address] [place], [place] [address]Dr. Machelle Garcia OXY Negative Normal NEGATIVE [facility] Comment on above: Performed By: #### D RUGRPD ####[facility] [address] [place], [place] [address]Dr. Machelle Garcia PCP Negative Normal NEGATIVE [facility] Comment on above: Performed By: #### D RUGRPD ####[facility] [address] [address]Dr. Machelle Garcia PPX Negative Normal NEGATIVE [facility] [place] Comment on above: Performed By: #### D RUGRPD ####[facility] [address] [address]Dr. Machelle Garcia TCA Negative Normal NEGATIVE [facility] [place] Comment on above: Performed By: #### D RUGRPD ####[facility] [address] [address]Dr. Machelle Garcia THC Positive Abnormal NEGATIVE [facility] [place] Comment on above: Performed By: #### D RUGRPD ####[facility] [address] [address]Dr. Machelle Garcia ER URINE PROFILEon 2 Bilirubin Ql (U) Negative Normal NEGATIVE [facility] Comment on above: Performed By: #### P REGU, ERUR #### [facility] [address] [address] [address] Machelle Garcia Clarity (U) CLEAR Normal CLEAR [facility] [place] Comment on above: Performed By: #### P REGU, ERUR #### [facility] [address] [address] [address] Machelle Garcia Color (U) LT. YELLOW Normal YELLOW [facility] [place] Comment on above: Performed By: #### P REGU, ERUR #### [facility] [address] [address] [address] Machelle TAYLOR A micrscopic examination will be performed if indicated. Normal [facility] Comment on above: Performed By: #### P REGU, ERUR #### [facility] [address] [address] [address] Machelle Garcia Glucose Ql (U) Negative Normal NEGATIVE [facility] Comment on above: Performed By: #### P REGU, ERUR #### [facility] [address] [place] [address] Dr. Machelle Garcia Hemoglobin Ql (U) Negative Normal NEGATIVE [facility] Comment on above: Performed By: #### P REGU, ERUR #### [facility] [address] [place] [address] Dr. Machelle Garcia Ketones Ql (U) TRACE Abnormal NEGATIVE [facility] Comment on above: Performed By: #### P REGU, ERUR #### [facility] [address] [place] [address] Dr. Machelle Garcia LEUKOCYTES Negative Normal NEGATIVE [facility] [place] Comment on above: Performed By: #### P REGU, ERUR #### [facility] [address] [place] [address] Dr. Machelle Garcia Nitrite Ql (U) Negative Normal NEGATIVE [facility] Comment on above: Performed By: #### P REGU, ERUR #### [facility] [address] [place] [place] [address] Dr. Machelle Garcia pH (U) 5.5 [pH] Normal 5-9 [facility] [place] Comment on above: Performed By: #### P REGU, ERUR #### [facility] [address] [place] [address] Dr. Machelle Garcia SPEC GRAVITY 1.020 Normal 1.005-<=1.02 5 [facility] [place] Comment on above: Performed By: #### P REGU, ERUR #### [facility] [address] [place] [address] Dr. Machelle Garcia UA PROTEIN Negative Normal NEGATIVE/ TRACE [facility] Comment on above: Performed By: #### P REGU, ERUR #### [facility] [address] [place] [address] Dr. Machelle Garcia UR MICRO IND NOT INDICATED Normal [facility] Comment on above: Performed By: #### P REGU, ERUR #### [facility] [address] [place] [address] Dr. Machelle Garcia Urobilinogen Qn (U) 0.2 {Jeanine'U}/dL Normal 0.2 - 1. 0 [facility] [place] Comment on above: Performed By: #### P REGU, ERUR #### [facility] [address] [place] [address] Dr. Machelle Garcia ETHANOL (BLD ALC)on 09-12-20 22 ALC NOTE NOTE: 80 mg/dl is e legal limit for a blood alcohol level Normal [facility] [place] Comment on above: Performed By: #### E TH ####[facility] [address] [place], [place] [address]DrDr. Machelle Garcia Ethanol [Mass/Vol] mg/dL Normal [facility] Comment on above: Performed By: #### E TH ####[facility] [address] [place], [place] [address]Dr. Machelle Garcia URon 09-12-2022 , QUAL Negative Normal NEGATIVE [facility] Comment on above: Performed By: #### P REGU, ERUR #### [facility] [address] [address] [address] Machelle Garcia PROF 14(COMP METB)on 022 Albumin [Mass/Vol] 3.9 g/dL Normal 3.4-5.0 [facility] Comment on above: Performed By: #### S ALYC, ACET, CMP #### [facility] [address] [address] [address] Machelle Garcia Albumin/Globulin [Mass ratio] 1.1 {ratio} Normal [facility] [place] Comment on above: Performed By: #### S ALYC, ACET, CMP #### [facility] [address] [address] [address] Machelle Garcia ALP [Catalytic activity/Vol] 89 U/L Normal 46-116 [facility] [place] Comment on above: Performed By: #### S ALYC, ACET, CMP #### [facility] [address] [address] [address] Machelle Garcia ALT [Catalytic activity/Vol] 19 U/L Normal 14-59 [facility] [place] Comment on above: Performed By: #### S ALYC, ACET, CMP #### [facility] [address] [address] [address] Machelle Garcia Anion gap [Moles/Vol] 12.1 mmol/L Normal [facility] Comment on above: Performed By: #### S ALYC, ACET, CMP #### [facility] [address] [address] [address] Machelle Garcia AST [Catalytic activity/Vol] 16 U/L Normal 15-37 [facility] [place] Comment on above: Performed By: #### S ALYC, ACET, CMP #### [facility] [address] [place] [place] [address] Dr. Machelle Garcia Bilirubin [Mass/Vol] 0.4 mg/dL Normal 0.2-1.0 [facility] [place] Comment on above: Performed By: #### S ALYC, ACET, CMP #### [facility] [address] [place] [address] Dr. Machelle Garcia Calcium [Mass/Vol] 9.0 mg/dL Normal 8.5-10.1 [facility] Comment on above: Performed By: #### S ALYC, ACET, CMP #### [facility] [address] [place] [address] Dr. Machelle Garcia Chloride [Moles/Vol] 104 mmol/L Normal 98-107 [facility] [place] Comment on above: Performed By: #### S ALYC, ACET, CMP #### [facility] [address] [place] [address] Dr. Machelle Garcia CO2 [Moles/Vol] 25.5 mmol/L Normal 21.0-32.0 [facility] Comment on above: Performed By: #### S ALYC, ACET, CMP #### [facility] [address] [place] [address] Dr. Machelle Garcia Creatinine [Mass/Vol] 0.86 mg/dL Normal 0.55-1.02 [facility] Comment on above: Performed By: #### S ALYC, ACET, CMP #### [facility] [address] [place] [address] Dr. Machelle Garcia EGFR-AF BAHAMIAN >60 Normal >=60 [facility] Comment on above: Performed By: #### S ALYC, ACET, CMP #### [facility] [address] [place] [address] Dr. Machelle Garcia EGFR-NON AF BAHAMIAN >60 Normal >=60 [facility] Comment on above: Performed By: #### S ALYC, ACET, CMP #### [facility] [address] [address] [address] Machelle Garcia Globulin (S) [Mass/Vol] 3.4 g/dL Normal [facility] Comment on above: Performed By: #### S ALYC, ACET, CMP #### [facility] [address] [address] [address] Machelle Garcia Glucose [Mass/Vol] 102 mg/dL Normal 74-106 [facility] Comment on above: Performed By: #### S ALYC ACET, CMP #### [facility] [address] [place] [address] Dr. Machelle Garcia Potassium [Moles/Vol] 3.6 mmol/L Normal 3.5-5.1 [facility] Comment on above: Performed By: #### S ALYC ACET, CMP #### [facility] [address] [address] [address] Machelle Garcia Protein [Mass/Vol] 7.3 g/dL Normal 6.4-8.2 [facility] Comment on above: Performed By: #### S ALYC ACET, CMP #### [facility] [address] [place] [address] Dr. Machelle Garcia Sodium [Moles/Vol] 138 mmol/L Normal 136-145 [facility] Comment on above: Performed By: #### S ALYC, ACET, CMP #### [facility] [address] [address] [address] Machelle Garcia Urea nitrogen [Mass/Vol] 10.0 mg/dL Normal 7.0-18.0 [facility] Comment on above: Performed By: #### S ALYC, ACET, CMP #### [facility] [address] [place] [address] Dr. Machelle Garcia Urea nitrogen/Creatinine [Mass ratio] 11.6 mg/mg Normal [facility] Comment on above: Performed By: #### S ALYC, ACET, CMP #### [facility] [address] [place] [address] Dr. Machelle Garcia SALICYLATEon 09-12-2022 SALICYLATE <2.8 Normal <=19.9 [facility] Comment on above: Performed By: #### S ALYC, ACET, CMP #### [facility] [address] [place] [address] Dr. Machelle Garcia XR CHEST 1 Von [...] ROSEANNE GRADY Date: 2021-10-03 20:52 Normal [facility] CBC AUTO DIFFon 09-30-2021 BASO # 0.0 103/ul Normal 0.0-0.1 [facility] Comment on above: Performed By: #### C BC #### [facility] [address] [place] [address] Dr. Machelle Garcia Basophils/100 WBC (Bld) 0.4 % Normal 0.2-2.0 [facility] Comment on above: Performed By: #### C BC #### [facility] [address] [place] [address] Dr. Machelle Garcia EO # 0.1 103/ul Normal 0.0-0.7 [facility] Comment on above: Performed By: #### C BC #### [facility] [address] [place] [address] Dr. Machelle Garcia Eosinophils/100 WBC (Bld) 1.3 % Normal 0.9-7.0 [facility] Comment on above: Performed By: #### C BC #### [facility] [address] [place] [address] Dr. Machelle Garcia Erythrocyte distribution width (RBC) [Ratio] 12.8 % Normal 11.0-15.0 [facility] Comment on above: Performed By: #### C BC #### [facility] [address] [place] [address] Dr. Machelle Garcia Hematocrit (Bld) [Volume fraction] 40.7 % Normal 36.0-48.0 [facility] Comment on above: Performed By: #### C BC #### [facility] [address] [address] [address] Machelle Garcia Hemoglobin (Bld) [Mass/Vol] 13.7 g/dL Normal 12.0-16.0 [facility] Comment on above: Performed By: #### C BC #### [facility] [address] [place] [address] Dr. Machelle Garcia IG # 0.03 10e3/ul Normal 0.00-0.03 [facility] Comment on above: Performed By: #### C BC #### [facility] [address] [place] [address] Dr. Machelle Garcia IG % 0.4 % Normal 0.0-0.5 [facility] Comment on above: Performed By: #### C BC #### [facility] [address] [place] [address] Dr. Machelle Garcia LYMPH # 0.6 103/ul Critically low 1.2-3.8 [facility] Comment on above: Performed By: #### C BC #### [facility] [address] [place] [address] Dr. Machelle Garcia Lymphocytes/100 WBC (Bld) 8.8 % Critically low 20.5-60.0 [facility] Comment on above: Performed By: #### C BC #### [facility] [address] [place] [address] Dr. Machelle Garcia MANUAL DIFF REQ NO Normal [facility] Comment on above: Performed By: #### C BC #### [facility] [address] [place] [address] Dr. Machelle Garcia MCH (RBC) [Entitic mass] 29.0 pg Normal 26.7-34.0 [facility] Comment on above: Performed By: #### C BC #### [facility] [address] [place], [place] [id number] Dr. Machelle Garcia MCHC (RBC) [Mass/Vol] 33.7 g/dL Normal 29.9-35.2 [facility] Comment on above: Performed By: #### C BC #### [facility] [address] [place] [address] Dr. Machelle Garcia MCV (RBC) [Entitic vol] 86.2 fL Normal 81.0-99.0 [facility] Comment on above: Performed By: #### C BC #### [facility] [address] [place] [address] Dr. Machelle Garcia MONO # 1.0 103/ul Critically high 0.3-0.8 [facility] Comment on above: Performed By: #### C BC #### [facility] [address] [place] [address] Dr. Machelle Garcia Monocytes/100 WBC (Bld) 14.4 % Critically high 1.7-12.0 [facility] Comment on above: Performed By: #### C BC #### [facility] [address] [place] [address] Dr. Machelle Garcia NEUT # 5.1 103/ul Normal 1.4-6.5 [facility] Comment on above: Performed By: #### C BC #### [facility] [address] [place] [address] Dr. Machelle Garcia Neutrophils/100 WBC (Bld) 74.7 % Normal 43.0-75.0 [facility] Comment on above: Performed By: #### C BC #### [facility] [address] [place] [address] Dr. Machelle Garcia Platelet mean volume (Bld) [Entitic vol] 9.7 fL Normal 9.5-13.5 [facility] Comment on above: Performed By: #### C BC #### [facility] [address] [place] [address] Dr. Machelle Garcia PLT 211 103/ul Normal 150-450 [facility] Comment on above: Performed By: #### C BC #### [facility] [address] [place] [address] Dr. Machelle Garcia RBC 4.72 106/ul Normal 4.20-5.40 [facility] Comment on above: Performed By: #### C BC #### [facility] [address] [place] [address] Dr. Machelle Garcia WBC 6.8 103/ul Normal 4.0-11.0 [facility] Comment on above: Performed By: #### C BC #### [facility] [address] [place] [address] Dr. Machelle Garcia [facility]02 SARS-CoV-2 (COVID-19) RNA BERNARDINO+probe Ql (Unsp spec) Detected Critically abnormal NOT DETECTED [facility] Comment on above: Result Comment: This test is not yet approved or cleared by the [place] FDA. When there are no FDA-approved or cleared tests available, and other criteria are met, FDA can make tests available under an emergency access mechanism called an Emergency Use Authorization (EUA). The EUA for this test is supported by the [place] of Health and Human Service's declaration that [...] used). Performed By: #### C VDTBH #### [facility] [address] [place] [address] Dr. Machelle Garcia D-DIMERon 09-30-2021 D-DIMER 0.37 mg/L FEU Normal 0.19-0.50 [facility] Comment on above: Performed By: #### D DIM #### [facility] [address] [place] [address] Dr. Machelle Garcia D-DIMER COMMENTS SEE BELOW Normal [facility] Comment on above: Result Comment: Incr eases [...] hospitalization. Performed By: #### D DIM #### [facility] [address] [address] [address] Machelle Garcia PROF 14(COMP METB)on 021 Albumin [Mass/Vol] 3.5 g/dL Normal 3.5-5.0 [facility] Comment on above: Performed By: #### C MP ####[facility] [address] [address]Dr. Machelle Garcia Albumin/Globulin [Mass ratio] 0.9 {ratio} Normal [facility] Comment on above: Performed By: #### C MP ####[facility] [address] [address]Dr. Machelle Garcia ALP [Catalytic activity/Vol] 81 U/L Normal 38-126 [facility] Comment on above: Performed By: #### C MP ####[facility] [address] [address]Dr. Machelle Garcia ALT [Catalytic activity/Vol] 44 U/L Normal 9-52 [facility] Comment on above: Performed By: #### C MP ####[facility] [address] [address]Dr. Machelle Garcia Anion gap [Moles/Vol] 12.2 mmol/L Normal [facility] Comment on above: Performed By: #### C MP ####[facility] [address] [address]Dr. Machelle Garcia AST [Catalytic activity/Vol] 17 U/L Normal 14-36 [facility] Comment on above: Performed By: #### C MP ####[facility] [address] [address]Dr. Machelle Garcia Bilirubin [Mass/Vol] 0.3 mg/dL Normal 0.2-1.3 [facility] Comment on above: Performed By: #### C MP ####[facility] [address] [address]Dr. Machelle Garcia Calcium [Mass/Vol] 8.7 mg/dL Normal 8.4-10.2 [facility] Comment on above: Performed By: #### C MP ####[facility] [address] [address]Dr. Machelle Garcia Chloride [Moles/Vol] 103 mmol/L Normal 98-107 [facility] Comment on above: Performed By: #### C MP ####[facility] [address] [place], [place] [address]Dr. Machelle Garcia CO2 [Moles/Vol] 25.3 mmol/L Normal 22.0-30.0 [facility] Comment on above: Performed By: #### C MP ####[facility] [address] [place], [place] [address]Dr. Machelle Garcia Creatinine [Mass/Vol] 0.87 mg/dL Normal 0.52-1.04 [facility] Comment on above: Performed By: #### C MP ####[facility] [address] [place], [place] [address]Dr. Machelle Garcia EGFR-AF BAHAMIAN >60 Normal >=60 [facility] Comment on above: Performed By: #### C MP ####[facility] [address] [place], [place] [address]Dr. Machelle Garcia EGFR-NON AF BAHAMIAN >60 Normal >=60 [facility] Comment on above: Performed By: #### C MP ####[facility] [address] [place], [place] [address]Dr. Machelle Garcia Globulin (S) [Mass/Vol] 3.8 g/dL Normal [facility] Comment on above: Performed By: #### C MP ####[facility] [address] [place], [place] [address]Dr. Machelle Garcia Glucose [Mass/Vol] 99 mg/dL Normal 74-106 [facility] Comment on above: Performed By: #### C MP ####[facility] [address] [place], [place] [address]Dr. Machelle Garcia Potassium [Moles/Vol] 3.5 mmol/L Normal 3.4-5.0 [facility] Comment on above: Performed By: #### C MP ####[facility] [address] [address]Dr. Machelle Garcia Protein [Mass/Vol] 7.3 g/dL Normal 6.1-8.2 [facility] Comment on above: Performed By: #### C MP ####[facility] [address] [address]Dr. Machelle Garcia Sodium [Moles/Vol] 137 mmol/L Normal 137-145 [facility] Comment on above: Performed By: #### C MP ####[facility] [address] [address]Dr. Machelle Garcia Urea nitrogen [Mass/Vol] 11.0 mg/dL Normal 6.4-19.3 [facility] Comment on above: Performed By: #### C MP ####[facility] [address] [address]Dr. Machelle Garcia Urea nitrogen/Creatinine [Mass ratio] 12.6 mg/mg Normal [facility] Comment on above: Performed By: #### C MP ####[facility] [address] [address]Dr. Machelle Garcia Cytology Cervical or vaginal smear or scraping studyOrdered By: Beata Greenberg on 12-09-2020 [facility] Vital Signs Date Time Vital Sign Value Performing Clinician Facility 03-23-2025 09:02040 Body height 149.9 cm [employer] Work Phone: [facility] 03-23-2025 09:02-0400 Body mass index (BMI) [Ratio] 51.71 kg/m2 [employer] Work Phone: [facility] 03-23-2025 09:02-0400 Body weight 116.12 kg [employer] Work Phone: [facility] 03-23-2025 09:02-0400 Diastolic blood pressure 70 mm[Hg] Renee Chary DO Work Phone: [facility] 03-23-2025 09:02-0400 Systolic blood pressure 120 mm[Hg] Renee Chary DO Work Phone: [facility] 09-09-2024 12:49-0500 Body mass index (BMI) [Ratio] 63.11 kg/m2 Breana Posada [employer] Work Phone: [facility] 09-09-2024 12:49-0500 Body temperature 98.1 [degF] Breana Posdaa [employer] Work Phone: [facility] 09-09-2024 12:49-0500 Body weight 105.9 kg Breana Posada [employer] Work Phone: [facility] 09-09-2024 12:49-0500 Diastolic blood pressure 80 mm[Hg] Breana Posada [employer] Work Phone: [facility] 09-09-2024 12:49-0500 Heart rate 103 /min Breana Posada [employer] Work Phone: [facility] 09-09-2024 12:49-0500 SaO2% (BldA) [Mass fraction] 98 % Breana Posada [employer] Work Phone: [facility] 09-09-2024 12:49-0500 Systolic blood pressure 100 mm[Hg] Breana Posada [employer] Work Phone: [facility] 09-15-2022 07:26-0500 Body temperature 98.4 [degF] MD Helio Florian Work Phone: [facility] 09-15-2022 07:26-0500 Diastolic blood pressure 70 mm[Hg] MD Helio Florian Work Phone: [facility] 09-15-2022 07:26-0500 Heart rate 92 /min MD Helio Florian Work Phone: [facility] 09-15-2022 07:26-0500 Respiratory rate 16 /min MD Helio Florian Work Phone: [facility] 09-15-2022 07:26-0500 SaO2% (BldA) [Mass fraction] 97 % MD Helio Florian Work Phone: [facility] 09-15-2022 07:26-0500 Systolic blood pressure 117 mm[Hg] MD Helio Florian Work Phone: [facility] 09-13-2022 00:57-0500 Body height 149.86 cm MD Helio Florian Work Phone: [facility] 09-13-2022 00:57-0500 Body weight 90.71 kg MD Helio Florian Work Phone: [facility] Encounters Encounter Date Encounter Type Care Provider Facility Start: 03-23-2025 End: 03-23-2025 Bamboo flowsheet Renee Chary DO Work Phone: [facility] Start: 03-23-2025 End: 03-23-2025 [employer]amboo flowsheet Renee Chary DO Work Phone: [facility] Start: 03-23-2025 End: 03-23-2025 ambulatory RENEE CHARY Not Available Start: 03-23-2025 End: 03-23-2025 Office outpatient visit 15 minutes Renee Chary DO Work Phone: [facility] Comment on above: Female infertility; PCOS (polycystic ovarian syndrome) Start: 02-18-2025 ambulatory Dante Esparza acility:[facility] Start: 09-09-2024 End: 09-09-2024 Office outpatient visit 25 minutes Breana Posada [employer] Work Phone: [facility] Comment on above: Acute cough (Primary Dx); Bronchitis Start: 09-09-2024 End: 09-09-2024 ambulatory BREANA POSADA Not Available Start: 09-13-2022 End: 09-15-2022 Evaluation and management of inpatient MD Helio Florian Work Phone: [facility] Start: 09-12-2022 End: 09-13-2022 ambulatory TAL IQBAL Facility:[facility] Start: 10-19-2021 End: 10-19-[address] HELIO FLORIAN Facility:[facility] Start: 10-03-2021 End: 10-03-[address] HELIO FLORIAN Facility:[facility] Start: 09-30-2021 End: 09-30-[address] SUMI DURON Facility:[facility] Procedures Date Procedure Procedure Detail Performing Clinician Start: 12-09-2020 Cytp cerv/vag auto t hin layer prep mnl screen Albert Esparza [place] Plan of Treatment Date Care Activity Detail Author Start: 07-27-2025 End: 07-27-2025 Patient encounter procedure 07/27/2025 9:50 AM EDT Office Visit [facility] [address] [place] [id number] Renee Diez, [address] [place] [address] [facility] Start: 06-01-2025 Influenza vaccination Influenz a Vaccine (Season Ended) [facility] Start: 03-24-2025 End: 03-24-2025 Professional / ancillary services management 03/24/2025 10:00 AM EDT Ancillary Procedure [facility] [address] [place] [id number] [facility] Start: 03-23-2025 End: 03-23-2026 Antimullerian hormone (AMH) Antimullerian hormone (AMH) Lab Routine Female infertility PCOS (polycystic ovarian syndrome) Expected: 03/23/2025, Expires: 03/23/2026 [facility] Comment on above: Expected: 03/23/2025 , Expires: 03/23/2026 Start: 03-23-2025 End: 03-23-2026 CBC W Auto Differential panel - Blood CBC and differential Lab Routine Female infertility PCOS (polycystic ovarian syndrome) Expected: 03/23/2025 (Approximate), Expires: 03/23/2026 [facility] Comment on above: Expected: 03/23/2025 (Approximate), Expires: 03/23/2026 Start: 03-23-2025 End: 03-23-2026 DHEA DHEA Lab Routine Female infertility PCOS (polycystic ovarian syndrome) Expected: 03/23/2025, Expires: 03/23/2026 [facility] Comment on above: Expected: 03/23/2025 , Expires: 03/23/2026 Start: 03-23-2025 End: 03-23-2026 DHEA-sulfate DHEA-sulfate Lab Routine Female infertility PCOS (polycystic ovarian syndrome) Expected: 03/23/2025 (Approximate), Expires: 03/23/2026 [facility] Comment on above: Expected: 03/23/2025 (Approximate), Expires: 03/23/2026 Start: 03-23-2025 End: 03-23-2026 Follicle stimulating hormone Follicle stimulating hormone Lab Routine Female infertility PCOS (polycystic ovarian syndrome) Expected: 03/23/2025 (Approximate), Expires: 03/23/2026 [facility] Comment on above: Expected: 03/23/2025 (Approximate), Expires: 03/23/2026 Start: 03-23-2025 End: 03-23-2026 hCG, quantitative, hCG, quantitative, Lab Routine Female infertility PCOS (polycystic ovarian syndrome) Expected: 03/23/2025 (Approximate), Expires: 03/23/2026 [facility] Work Phone: Comment on above: Expected: 03/23/2025 (Approximate), Expires: 03/23/2026 Start: 03-23-2025 End: 03-23-2026 Hemoglobin A1c/Hemoglobin.total in Blood Hemoglobin A1c Lab Routine Female infertility PCOS (polycystic ovarian syndrome) Expected: 03/23/2025 (Approximate), Expires: 03/23/2026 [facility] Comment on above: Expected: 03/23/2025 (Approximate), Expires: 03/23/2026 Start: 03-23-2025 End: 03-23-2026 Luteinizing hormone Luteinizing hormone Lab Routine Female infertility PCOS (polycystic ovarian syndrome) Expected: 03/23/2025 (Approximate), Expires: 03/23/2026 [facility] Comment on above: Expected: 03/23/2025 (Approximate), Expires: 03/23/2026 Start: 03-23-2025 End: 03-23-2026 Thyrotropin [Units/volume] in Serum or Plasma TSH Lab Routine Female infertility PCOS (polycystic ovarian syndrome) Expected: 03/23/2025 (Approximate), Expires: 03/23/2026 [facility] Comment on above: Expected: 03/23/2025 (Approximate), Expires: 03/23/2026 Start: 03-23-2025 End: 03-23-2026 Thyroxine (T4) free [Mass/volume] in Serum or Plasma T4, free Lab Routine Female infertility PCOS (polycystic ovarian syndrome) Expected: 03/23/2025 (Approximate), Expires: 03/23/2026 [facility] Comment on above: Expected: 03/23/2025 (Approximate), Expires: 03/23/2026 Start: 03-23-2025 End: 03-23-2026 US Pelvis US Pelvis w/ TV Imaging Routine Female infertility PCOS (polycystic ovarian syndrome) Expected: 03/23/2025, Expires: 03/23/2026 [facility] Comment on above: Expected: 03/23/2025 , Expires: 03/23/2026 Start: 06-01-2024 Influenza vaccination Influenza Vacc ine (#1) [facility] Start: 09-15-2022 [facility] Start: 09-13-2022 Hospital admission [facility] Patient Education Bipolar Disord er (DC) [facility] [place] Instructions [facility] Work Phone: Patient referral [facility] Work Phone: Progesterone Progesterone Lab Routine Female infertility PCOS (polycystic ovarian syndrome) Ordered: 03/23/2025 [facility] Comment on above: Ordered: 03/23/2025 Immunizations Immunization Date Immunization Notes Care Provider Alexus stratton 07-27-2014 influenza virus vacc ine, unspecified formulation Breana Posada [employer] Work Phone: [facility] Payers Date Payer Category Payer Medicaid (Managed Care) [facility] MEDICA[facility] [id number] 2023 Self-pay [id number] 2002 Unknown [id number] 2002 Unknown [id number] 2002 Unknown [id number] 2002 Unknown [id number] 2002 Unknown [id number] 2002 Unknown [id number] 1957 Medicaid [id number] Unknown [id number] Social History Date Type Detail Facility Start: 09-13-2022 Tobacco smoking stat [facility] Smoker (finding) [facility] Start: 2000 Sex Assigned At Female F [facility] Start: 04-05-2023 [facility] Start: 04-05-2023 Tobacco use and exposure Smokeless tobacco non-user [facility] Start: 04-05-2023 End: 03-23-2025 Alcoholic beverage intake Lifetime non-drinker (finding) [facility] Start: 04-05-2023 End: 03-23-2025 History of Social function [facility] Start: 04-05-2023 End: 03-23-2025 Tobacco use panel [facility] Start: 2000 Sex assigned at Not on file [facility] Goals Date Patient Goal Desired Activity /State Functional Status Date Assessment Result Facility 09-15-2022 Functional status Patient at Baseline [facility] Work Phone: Mental Status Date Assessment Result Facility 09-15-2022 Cognitive function Cognitive Sta tus Patient at Baseline [facility] Work Phone: History of Present illness Narrative 03-23-2025 Faye Sutton, CHANELLE - 03/23/2025 8:40 AM EDT Note Date & Type Note Facility 03-23-2025 History of Presen t illness Narrative Reason for Appointment: Patient ID: Alexia Tristan is a 24 y.o. female who presents for Infertility Patient presents today for Consult appointment. MEDICATIONS Current Outpatient Medications Medication Instructions Vraylar 1.5 mg, Daily Zoloft 25 mg, Daily ALLERGIES No Known Allergies PROBLEMS Active Ambulatory Problems Diagnosis Date Noted No Active Ambulatory Problems Resolved Ambulatory Problems Diagnosis Date Noted No Resolved Ambulatory Problems Past Medical History: Diagnosis Date Bipolar 1 disorder (HCC) HISTORY PAST MEDICAL HISTORY SOCIAL HISTORY Past Medical History: Diagnosis Date Bipolar 1 disorder (HCC) Social History Tobacco Use Smoking status: Never Smokeless tobacco: Never Vaping Use Vaping status: Former Substance Use Topics Alcohol use: Never Drug use: Never FAMILY HISTORY No family history on file. SURGICAL HISTORY History reviewed. No pertinent surgical history. REVIEW OF SYSTEMS Review of Systems: Review of Systems Constitutional: Negative. HENT: Negative. Eyes: Negative. Respiratory: Negative. Cardiovascular: Negative. Gastrointestinal: Negative. Genitourinary: Negative. Musculoskeletal: Negative. Skin: Negative. Neurological: Negative. All other systems reviewed and are negative. Hematological: Negative. Endocrine: Negative. Allergic/Immunologic: Negative. OBJECTIVE Objective: Physical Exam Constitutional: Appearance: Normal appearance. She is well-developed. Cardiovascular: Rate and Rhythm: Normal rate and regular rhythm. Pulmonary: Effort: Pulmonary effort is normal. Breath sounds: Normal breath sounds. Abdominal: General: Bowel sounds are normal. There is no distension. Palpations: Abdomen is soft. Tenderness: There is no abdominal tenderness. There is no guarding or rebound. Musculoskeletal: General: No swelling. Normal range of motion. Right lower leg: No edema. Left lower leg: No edema. Neurological: Mental Status: She is alert and oriented to person, place, and time. Skin: General: Skin is warm and dry. Psychiatric: Mood and Affect: Mood normal. Behavior: Behavior normal. Vitals and nursing note reviewed. Exam conducted with a manager apple present. Vitals: Estimated body mass index is 51.71 kg/m as calculated from the following: Height as of this encounter: 4' 11 . Weight as of this encounter: 256 lb. BP: 120/70 Patient's last menstrual period was 03/21/2025. ASSESSMENT & PLAN ICD-10-CM 1. Female infertility N97.9 Patient presents today for fertility planning. Patient voiced that her cycles are regular. Discussed with patient have labs drawn and ultrasound. Patient is agreeable with plan of care and will have US obtained, labs drawn along with adding AMH. Patient agreeable to starting Metformin as well. Discussed fertility medication with patient as patient desires to start Femara with next cycle. LMP: 03/21/25. Patient to start Femara today and Day 21 will be on 04/10/2025. Patient to call office with any questions. Patient to return to clinic in 4 months for fertility follow up. Patient to reach out to psychiatrist to see about safe mood stabilizer than Vraylar and specialist can reach out to office to discuss with Dr. Diez safer medications. Documented by Faye Sutton LPN on behalf of: Renee Diez DO documented in this encounter [facility] History of Present illness Narrative 09-09-2024 Breana Posada NP - 09/09/2024 12:50 PM EST Note Date & Type Note Facility 09-09-2024 History of Presen t illness Narrative Images from the original note were not included. [address] , [address] [facility], [address] P: [phone] F: [phone] HPI Historian of HPI: patient Alexia Tristan is a 24 y.o. female who presents today to the Urgent Care with the following complaints and denials which have been present for 1 week(s) C/O Denies Symptom Comments [x] [] Runny Nose [] [x] Difficulty Swallowing [] [x] Sore Throat [x] [] Cough [] [x] Ear Pain [] [x] Fever [] [x] Chills [x] [] Nasal Congestion [] [x] Myalgia [] [x] Sinus Pain [x] [] Sinus Pressure Additional Comments: pt has not taken any OTC medications Pt c/o chest congestion ROS A complete system ROS was performed and negative aside from the pertinent positives noted in the HPI and PE. Visit Vitals BP 100/80 Pulse 103 Temp 98.1 F Wt 233 lb 7.5 oz SpO2 98% BMI 63.11 kg/m Smoking Status Never BSA 1.95 m IH Testing: PHYSICAL EXAM Physical Exam Vitals reviewed. Constitutional: General: She is not in acute distress. Appearance: Normal appearance. HENT: Head: Normocephalic and atraumatic. Right Ear: Hearing, tympanic membrane, ear canal and external ear normal. Left Ear: Hearing, tympanic membrane, ear canal and external ear normal. Nose: Congestion present. Right Turbinates: Enlarged and swollen. Left Turbinates: Enlarged and swollen. Mouth/Throat: Lips: [place]. Mouth: Mucous membranes are moist. Pharynx: Oropharynx is clear. Uvula midline. Posterior oropharyngeal erythema and postnasal drip present. Eyes: Extraocular Movements: Extraocular movements intact. Conjunctiva/sclera: Conjunctivae normal. Pupils: Pupils are equal, round, and reactive to light. Cardiovascular: Rate and Rhythm: Normal rate and regular rhythm. Pulses: Normal pulses. Heart sounds: Normal heart sounds. Pulmonary: Effort: Pulmonary effort is normal. No respiratory distress. Breath sounds: Normal breath sounds and air entry. No wheezing, rhonchi or rales. Musculoskeletal: General: Normal range of motion. Cervical back: Normal range of motion and neck supple. Skin: General: Skin is warm and dry. Findings: No rash. Neurological: General: No focal deficit present. Mental Status: She is alert and oriented to person, place, and time. Psychiatric: Mood and Affect: Mood normal. TREATMENT PLAN 1. Acute cough (Primary) New medication as directed. Acetaminophen or Ibuprofen for reduction of fever and pain. Increase fluids. Good handwashing. Discussed warning signs of worsening infection and when to report to ER. New toothbrush in 24 hours. Call office if symptoms have not started to improve within the next 72 hours. Patient verbalized understanding of instructions. - azithromycin (Zithromax) 250 MG tablet; Take 1 tablet (250 mg) by mouth Daily Take 2 tabs on day 1 and 1 tab on days 2-5 then stop Dispense: 6 tablet; Refill: 0 - benzonatate (Tessalon Perles) 100 MG capsule; Take 1 capsule (100 mg) by mouth 3 (three) times a day as needed for cough Do not crush or chew. Dispense: 21 capsule; Refill: 0 2. Bronchitis -Take medication as prescribed below to completion -cough and deep breathe -May use Tylenol/Ibuprofen for pain/fever -May use OTC medication such as cough syrups especially at night time for relief, pseudoephedrine for nasal congestion, and/or Vidhi Pot or saline rinses. -Follow up with in 1 week if no improvement or go to the ED for worsening of symptoms such as SOB or CP. Work note provided. - azithromycin (Zithromax) 250 MG tablet; Take 1 tablet (250 mg) by mouth Daily Take 2 tabs on day 1 and 1 tab on days 2-5 then stop Dispense: 6 tablet; Refill: 0 - benzonatate (Tessalon Perles) 100 MG capsule; Take 1 capsule (100 mg) by mouth 3 (three) times a day as needed for cough Do not crush or chew. Dispense: 21 capsule; Refill: 0 documented in this encounter [facility] Discharge summary 09-15-2022 Note Date & Type Note Facility 09-15-2022 Discharge summary Note Date/Time September 15, 2022 10:25am [facility] [address] [place] [address] Discharge Summary Signed Patient: Kay Busch MR#: [id number] : 2000 Acct:[id number] Age/Sex: 22 / F Adm Date: 2 Loc: Room: [address] [place] [address]: Param Rao MD Copies to: [...] No activity restrictions. 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 (insert date/time [...] signed by Param Rao MD> 09/15/22 1037 [facility] Work Phone: Progress note 09-14-2022 Note Date & Type Note Facility 09-14-2022 Progress note Note Date/Time September 14, 2022 12:20[facility] [address] [place] [address] Psychiatry Progress Note Signed Patient: Kay Busch MR#: [id number] : 2000 Acct:[id number] Age/Sex: 22 / F Adm Date: 2 Loc: 1S Room: [address] [place] [address] Type : ADM IN Attending Dr: Param [...] alternatives explained Documented By: Param Rao MD 09/14/221218 Signed By: <Electronically signed by Param Rao MD> 09/14/22 122 [facility] Work Phone: History and physical note 09-13-2022 Note Date & Type Note Facility 09-13-2022 History and physical note Note Date/Time September 13, 2022 12:48pm [facility] [address] [place] [address] Psychiatry H&P Signed Patient: Kay Busch MR#: [id number] : 2000 Acct:[id number] Age/Sex: 22 / F Adm Date: 2 Loc: 1S Room: [address] [place] [address] Type: ADM IN Attending Dr: Param Rao [...] explained Documented By: Param Rao MD 09/13/22 1245 Signed By: <Electronically signed by Param Rao MD> 09/13/22 1248 [facility] Work Phone: Evaluation note Note Date & Type Note Facility Evaluation note Diagnosis Onset Date Bipolar disorder acute [facility] Work Phone: Evaluation note Note Date & Type Note Facility Evaluation note Diagnosis Acute cough- Primary Bronchitis Bronchitis, not specified as acute or chronic documented in this encounter [facility] Evaluation note Note Date & Type Note Facility Evaluation note Diagnosis Female infertility Female infertility of unspecified origin PCOS (polycystic ovarian syndrome) Polycystic ovaries documented in this encounter [facility] Hospital Discharge instructions Note Date & Type Note Facility Hospital Discharge instructions Additional Instructions Regular diet. No activity restrictions. [facility] Work Phone: Chief Complaint and Reason for Visit Chief Complaint Bipolar Disorder Reason for Visit Bipolar disorder Advance Directives No Advanced Directives Records Found Advance Directive Response Recorded Date/ Time Advance Directives No February 12 8 1:08pm Summary Purpose Family History No Family History Records FoundNo Family History Records FoundNo Family History Records Found Additional Source Comments Care Teams (unrecognized sec tion and content) Team Status: Inactive Member Role Status Dates Helio Florian MD Primary Care Provider Active Param Rao MD Admit Provider, Attending Provider Active Team Status: Active Member Role Status Dates Helio Florian MD Primary Care Provider Active 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 Relationship Specialty Start Date End Date Helio Florian MD [address] [place] [address] PCP - General Family Medicine 04/05/23 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 Relationship Specialty Start Date End Date Helio Florian MD [address] [place] [address] PCP - General Family Medicine 04/05/23 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 Relationship Specialty Start Date End Date Helio Florian MD [address] [place] [phone] PCP - General Family Medicine 04/05/23 INFORMATION SOURCE (unrecogn ized section and content) DATE CREATED AUTHOR 09/21/2022 [facility] DATE CREATED AUTHOR AUTHOR'S ORGANIZ ATION 03/11/2025 [facility] DATE CREATED AUTHOR AUTHOR'S ORGANIZ ATION 03/24/2025 [facility] EPIC Reason for Visit (unrecogniz ed section and content) Reason Comments Infertility FOR RECORDS PERTAINING TO PATIENTS WHO ARE [...] BE BASED ON THE PRIMARY CLINICAL RECORDS. [facility] [employer] provides no warranty or guarantee of the accuracy or completeness of information in this document.
[2025-03-24 11:16] LABS: Estimated Average Glucose 105 mg/dL; Glycohemoglobin A1C 5.3 % (4.5-6.2)
[2025-03-24 11:23] LABS: Basophils Percent Auto 0.4 % (0.2-2.0); Eosinophils Absolute Auto 0.3 10^3/uL (0.0-0.7); Eosinophils Percent Auto 2.8 % (0.9-7.0); Hematocrit 39.1 % (36.0-48.0); Hemoglobin 13.9 g/dL (12.0-16.0); Immature Granulocytes Abs Auto 0.03 10^3/uL (0.00-0.03); Immature Granulocytes Pct Auto 0.3 % (0.0-0.5); Lymphocytes Percent Auto 31.6 % (20.5-60.0); Mean Corpuscular HGB Conc 35.5 g/dL (29.9-35.2); Mean Corpuscular Hemoglobin 30.6 pg (26.7-34.0); Mean Corpuscular Volume 86.1 fL (81.0-99.0); Mean Platelet Volume 9.3 fL (9.5-13.5); Monocytes Absolute Auto 0.7 10^3/uL (0.3-0.8); Monocytes Percent Auto 7.5 % (1.7-12.0); Neutrophils Absolute Auto 5.5 10^3/uL (1.4-6.5); Neutrophils Percent Auto 57.4 % (43.0-75.0); Platelet Count 262 10^3/uL (150-450); Red Blood Count 4.54 10^6/uL (4.20-5.40); Red Cell Distribution Width 12.4 % (11.0-15.0); White Blood Count 9.5 10^3/uL (4.0-11.0)
[2025-03-24 11:33] LABS: HCG Quantitative <1 mIU/mL
[2025-03-24 11:59] LABS: Free T4 1.19 ng/dL (0.76-1.46)
[2025-03-25 04:07] LABS: FSH 9.3 mIU/mL (.); Luteinizing Hormone(LH) 4.4 mIU/mL (.)
[2025-03-27 03:07] LABS: Anti-Mullerian Hormone (AMH) 0.939 ng/mL (.)
[2025-03-27 17:08] LABS: DHEA, Serum 279 ng/dL (31-701)
== END 2025-03-24 10:34 | disposition home or self-care (01) ==
LOC: LAB 10:35
PROVIDERS: PCP Family Medicine; Visit Provider Obstetrics & Gynecology
DX: N97.9 Female infertility, unspecified (principal); E28.2 Polycystic ovarian syndrome
CPT/HCPCS: 82397; 82626; 82627; 83001; 83002; 83036; 84439; 84443; 84702; 85025

== ENCOUNTER 2025-04-10 11:35 | Outpatient (OUT) | payer OTHER, SELFPAY | END 2025-04-10 11:36 | disposition home or self-care (01) | LOC: LAB 11:38 | PROVIDERS: PCP Nurse Practitioner Family; Visit Provider Obstetrics & Gynecology | DX: N97.9 Female infertility, unspecified (principal); E28.2 Polycystic ovarian syndrome | CPT/HCPCS: 36415; 84144 ==

== ENCOUNTER 2025-04-19 10:35 | Outpatient (RCR) | payer OTHER, SELFPAY ==
--- OUTSIDE RECORDS SUMMARY | 2024-07-01 06:30 | XMS_ITS ---
Author Organization The [facility] [place] Address [address] [place] [address] Care Team Providers Care Quarter Inspector Name Role Phone Carole Desouza Primary Care Provider Allergies No Known Allergies REASON FOR VISIT meds, thumb wart Medications Medication SIG (Take, Route, Frequency, Duration) Notes Start Date End Date Status Virasal 27.5 % 1 application as nee ded Externally Once a day 07/01/2024 Active Vraylar 1.5 MG 1 capsule Oral Once a day for 30 days Active Venlafaxine HCl ER 37.5 MG 1 capsule wit h food Orally Once a day for 30 days 07/01/2024 Active Social History AUDIT-C (Standard) Question Answer Notes Did you have a drink contain ing alcohol in the past year? Yes How often did you have six o r more drinks on one occasion in the past year? Less than monthly (1 point) How many drinks did you have on a typical day when you were drinking in the past year? 3 or 4 drinks (1 point) How often did you have a dri nk containing alcohol in the past year? 2 to 3 times a week (3 points) Points 5 Interpretation Positive Problems Problem Type SNOMED Code ICD Code Onset Dates Problem Status W/U Status Risk Notes Problem Mixed anxiety and depressive disorder (106001268) Anxiety and depression (F41.8) Active confirmed Problem Sleep apnea (32181099) Severe sleep apnea (G47.30) Active confirmed Vital Signs Blood pressure systolic 102 mm Hg 07/01/20 24 Blood pressure diastolic 60 mm Hg 024 Height 59 in 07/01/2024 Weight 224 lbs 07/01/2024 BMI 45.24 kg/m2 07/01/2024 Encounters Encounter Location Date Provider Diagnosis [facility] [address] [place] [address] 07/01/2024 Carole Desouza Wart of hand B07.9 and Anxiety and depression F41.8 Assessments Encounter Date Diagnosis (ICD Code) Assessment Notes Treatment Notes Treatment Clinical Notes Section Notes 07/01/2024 Wart of hand (ICD-10 - B07.9) 07/01/2024 Anxiety and depression (ICD-10 - F41.8) encouraged counseling has been off for several months, start lower doses add wellbutrin next month? fu 6m, prn Plan Of Treatment Medication Medication Name Sig Start Date Stop Date Notes Virasal 27.5 % 1 application as nee ded Externally Once a day 07/01/2024 buPROPion HCl ER (XL) 300 MG TAKE 1 TABL ET BY MOUTH EVERY DAY Oral Once a day OXcarbazepine 300 MG Oral Vraylar 1.5 MG 1 capsule Oral Once a day for 30 days Venlafaxine HCl ER 37.5 MG 1 capsule wit h food Orally Once a day for 30 days 07/01/2024 Treatment Notes Assessment Notes Anxiety and depression encouraged counseling has been off for several months, start lower doses add wellbutrin next month? fu 6m, prn Next Appt Details Follow Up: 6 Months,prn, [place] son: Provider Name:Carole mckeon, 07/01/2025 11:00:00 AM, [address] [place], [address], Progress Notes * Kay TRISTAN MDOB: [birth year] (24 yo F)Acc No.[id number]:07/01/2024 Progress Note Patient: Ayush WESLEYKay RODRIGUEZ Provider: Jason Desouza ([facility]), CLINICAL MICROBIOLOGIST :2000 A ge:24 Y S ex:Female Date:07/01/2024 Address:[address] [place], [place] [id number] Check In:10:24 AM ESTCheck O ut:10:48 AM EST Subjective: * Chief Complaints: * 1 . Meds, thumb wart. * HPI: D epression Screening: PHQ-9 L ittle interest or pleasure in doing things?More than half the days F eeling down, depressed, or hopeless M ore than half the days T rouble falling or staying asleep, or sleeping too much N ot at all F eeling tired or having little energy S everal days P oor appetite or overeating N ot at all F eeling bad about yourself or that you are a failure, or have let yourself or your family down S everal days T rouble concentrating on things, such as reading the newspaper or watching television N ot at all M oving or speaking so slowly that other people could have noticed; or the opposite, being so fidgety or restless that you have been moving around a lot more than usual N ot at all T houghts that you would be better off or of hurting yourself in some way N ot at all T otal Score 6 I nterpretation M ild Depression G eneral: has been off meds for few months now, getting prescribed by psych in past venlafaxine wellbutrin add in month [employer] works at severe sleep apnea, wears bipap, helping stopped taking testosterone no bleeding issues off testosterone. * ROS: G eneral/Constitutional: Anxiety a dmits. D epression a dmits some. F ever d enies. H eadache d enies. W eight loss d enies. O phthalmologic: Discharge d enies. E ye Pain d enies. I tching and redness d enies. E NT: Nasal discharge d enies. N tejinder congestion d enies.?Sore throat d enies. C ardiovascular: Chest tightness/ heavy pressure d enies. R apid heart rate d enies. S welling of extremities d enies. C hest pain d enies. ? R espiratory: Productive cough d enies. C hest pain d enies. C ough d enies. S hortness of breath d enies. W heezing d enies. ? G astrointestinal: Abdominal pain d enies. C onstipation d enies. D ecreased appetite d enies. D iarrhea d enies. N ausea d enies. V omiting?denies. G enitourinary: Urinary incontinence d enies. P ainful urination d enies. M usculoskeletal: Back pain d enies. N moriah pain d enies. M uscle aches d enies. S kin: Rash d enies. S kin lesion(s) w art left thumb.? * Active Problem List G47.30 Severe sleep apnea Modified On:07/01/2024/U Status:confirmed N94.89 Other specified cond itions associated with female genital organs and menstrual cycle Modified On:06/22/2023/U Status:confirmed R40.0 Somnolence Modified On:06/22/2023U Status:confirmed F64.0 Transsexualism Modified On:06/22/2023U Status:confirmed F41.8 Anxiety and depressi on Modified On:07/01/2024U Status:confirmed * Medical History: S evere sleep apnea. * Hospitalization/Major Diagno stic Procedure: F [facility] 1 08/2022. * Family History: F ather: alive, diagnosed with Diabetes mellitus without mention of complication, type II or unspecified type, not stated as uncontrolled. M other: alive. * Social History: T obacco Use: E lectronic Cigarette use C urrent user Y es D rug/Alcohol: A JL-C (Standard) D id you have a drink containing alcohol in the past year? Y es H ow often did you have six or more drinks on one occasion in the past year? L ess than monthly (1 point) H ow many drinks did you have on a typical day when you were drinking in the past year? 3 or 4 drinks (1 point) H ow often did you have a drink containing alcohol in the past year? 2 to 3 times a week (3 points) P oints 5 I nterpretation P ositive * Medications: N ot-Taking/PRN buPROPion HCl ER (XL) 300 MG Tablet Extended Release 24 Hour TAKE 1 TABLET BY MOUTH EVERY DAY Oral Once a day , Not-Taking/PRN OXcarbazepine 300 MG Tablet Oral , Not-Taking/PRN Vraylar(Cariprazine HCl) 6 MG Capsule 1 capsule Oral Once a day , Medication List reviewed and reconciled with the patient * Allergies: N .K.D.A. Objective: * Vitals: W t:224lbs, Ht: 59 in, BP:102/60mm Hg, BMI:45.24Index, Ht-cm: 149.86 cm, Wt-k.6 kg. * Examination: G eneral Examinations: GENERAL APPEARANCE: a lert and oriented, in no acute distress, obese. EYES: c onjunctiva normal, sclera non-icteric. NOSE: n ormal external appearance. LUNGS: c lear to auscultation bilaterally. CARDIO: r egular rate and rhythm, S1, S2 normal, no murmurs, no edema. ABDOMEN: s oft, nontender. SKIN: w arm and dry. Assessment: * Assessment: 1. A nxiety and depression - F41.8 (Primary) 2 . W art of hand - B07.9 Plan: * Treatment: 2. W art of hand Start Virasal Liquid, 27.5 %, 1 application as needed, Externally, Once a day, 1, Refills 1. ? * Preventive Medicine: Screenings/Counseling: B NH ACTION PLAN Above Normal BMI Follow-up D ietary management education, guidance, and counseling T OBACCO ACTION PLAN Patient counselled on the dangers of tobacco use and urged to quit. . * Follow Up: 6 Months,prn * * Sign off status: Completed Visit Status: C HK (Check Out) true * Provider: Jason Desouza ([facility]), CLINICAL MICROBIOLOGIST Date: Generated for Susanna pak/Tim/Rayitting on: 0 04/19/2025 10:38 AM EDT History and Physical Notes * HPI (History of Present Illness) Category Sub-Category Detail Notes Category Not es Depression Screening PHQ-9 Little inte rest or pleasure in doing things: More than half the days Feeling down, depressed, or hopeless: Mo re than half the days Trouble falling or staying asleep, or sl eeping too much: Not at all Feeling tired or having little energy: S everal days Poor appetite or overeating: Not at all Feeling bad about yourself o r that you are a failure, or have let yourself or your family down: Several days Trouble concentrating on thi ngs, such as reading the newspaper or watching television: Not at all Moving or speaking so slowly that other people could have noticed; or the opposite, being so fidgety or restless that you have been moving around a lot more than usual: Not at all Thoughts that you would be b jennifer off or of hurting yourself in some way: Not at all Total Score: 6 Interpretation: Mild Depression General has been off meds for few months now, getting prescribed by psych in past venlafaxine wellbutrin add in month [employer] works at severe sleep apnea, wears bipap, helping stopped taking testosterone no bleeding issues off testosterone Examination Category Sub-Category Detail Notes Category Not es General Examinations GENERAL APPEARANCE: alert a nd oriented, in no acute distress, obese EYES: conjunctiva normal, sclera non-icteric EARS: NOSE: normal external appe arance THROAT: CARDIO: regular rate and rhy thm, S1, S2 normal, no murmurs, no edema LUNGS: clear to auscultatio n bilaterally ABDOMEN: soft, nontender SKIN: warm and dry BACK: MUSCULOSKELETAL: LYMPH NODES:
--- OUTSIDE RECORDS SUMMARY | 2024-08-08 07:53 | XMS_ITS ---
Author Organization The [facility] in [place] Address [address] [place] [address] Care Team Providers Care Mortgage Assistant Name Role Phone Carole Desouza Primary Care Provider [phone] REASON FOR VISIT Meds increased Medications Medication SIG (Take, Route, Frequency, Duration) Notes Start Date End Date Status Vraylar 3 MG 1 capsule Oral Once a day for 30 days Active Venlafaxine HCl ER 75 MG 1 capsule with food Orally Once a day for 30 days 07/01/2024 Active Encounters Encounter Location Date Provider Diagnosis [facility] [address] [place] [address] 08/08/2024 Carole Desouza Anxiety and depression F41.8 Assessments Encounter Date Diagnosis (ICD Code) Assessment Notes Treatment Notes Treatment Clinical Notes Section Notes 08/08/2024 Anxiety and depression (ICD-10 - F41.8) Plan Of Treatment Medication Medication Name Sig Start Date Stop Date Notes Vraylar 3 MG 1 capsule Oral Once a day for 30 days Venlafaxine HCl ER 75 MG 1 capsule with food Orally Once a day for 30 days 07/01/2024 Next Appt Details Provider Name:Carole mckeon, 07/01/2025 11:00:00 AM, [address] [place], [address], Progress Notes * Kay TRISTAN MDOB: [birth year] (24 yo F)Acc No.[id number]:08/08/2024 Patient: Kay GODINEZ :2000 A ge:24 Y S ex:Female Address:[address] [place] [address] * Refills Refill Vraylar Capsule, 3 MG, Oral, 30, 1 capsule, Once a day, 30 days, Refills=5 Refill Venlafaxine HCl ER Capsule Extended Release 24 Hour, 75 MG, Orally, 30, 1 capsule with food, Once a day, 30 days, Refills=5 Subjective: * Chief Complaints: * M eds increased * Medical History: * Surgical History: * Hospitalization/Major Diagno stic Procedure: * Medications: Objective: * Vitals: * Physical Examination: Assessment: * Assessment: 1. A nxiety and depression - F41.8 Plan: * Treatment: * Procedure Codes: * true * Date: Generated for Susanna pak/Tim/Rayitting on: 0 04/19/2025 10:38 AM EDT
--- OUTSIDE RECORDS SUMMARY | 2024-08-11 05:38 | XMS_ITS ---
Author Organization [facility] in [place] Address [address] [place] [address] Care Team Providers Care Air Conditioning Specialist Name Role Phone Carole Desouza Primary Care Provider REASON FOR VISIT Mental Health Encounters Encounter Location Date Provider Diagnosis [facility] [address] [place] [address] 08/11/2024 Carole Desouza Plan Of Treatment Next Appt Details Provider Name:Carole mckeon, 07/01/2025 11:00:00 AM, [address] [place], [address], Progress Notes * Kay TRISTAN MDOB: [birth year] (24 yo F)Acc No.[id number]:08/11/2024 Patient: Kay GODINEZ :2000 A ge:24 Y S ex:Female Address:[address] [place] [id number] * true * Date: Generated for Printi ng/Faxing/eTransmitting on: 0 04/19/2025 09:32 AM EDT
--- OUTSIDE RECORDS SUMMARY | 2025-04-19 10:38 | XMS_ITS | Clinical Summary ---
Author Organization [employer] tem Address [id number] [address] [place] [address] Care Team Providers Care Metal Patternmaker Name Role Phone Helio Campos MD Primary Care Provider [phone] Allergies No known active allergies Medications testosterone enanthate 75 mg/0.5 mL auto-injector Inject 75 mg under the skin every 7 days. Active cariprazine (VRAYLAR) 6 mg capsule Take 6 mg by mouth in the morning. Active buPROPion XL (WELLBUTRIN XL) 300 mg 24 hr tablet Take 1 tablet (300 mg total) by mouth in the morning. Active hydrOXYzine (ATARAX) 25 mg tablet Take 1 tablet (25 mg total) by mouth 3 (three) times a day as needed for itching. Active ibuprofen (MOTRIN) 600 mg tablet Take 1 tablet (600 mg total) by mouth every 6 (six) hours as needed for pain. Active OXcarbazepine (TrileptaL) 300 mg tablet Take 1 tablet (300 mg total) by mouth in the morning and 1 tablet (300 mg total) before bedtime. Active Active Problems No known active problems Family History Medical History Relation Name Comments Depression Father Silver Diabetes Father Silver Mental illness Father Silver Breast cancer Neg Hx Ovarian cancer Neg Hx Uterine cancer Neg Hx Relation Name Status Comments Father Silver Social History Tobacco Use Types Packs/Day Years Used Date Smoking Tobacco: Never Smokeless Tobacco: Never Alcohol Use Standard Drinks/Week Comments Never 0 (1 standard drink = 0.6 oz pur e alcohol) Childcare Answer Date Recorded Childcare Unknown 03/12/2019 Employment Answer Date Recorded Employment Unknown 03/12/2019 Hunger Screening Answer Date Recorded Within the past 12 months we worried whether our food would run out before we got money to buy more. Never True 08/31/2022 Within the past 12 months th e food we bought just didn't last and we didn't have money to get more. Never True 08/31/2022 Comments No Sex and Gender Information Value Date Recorded Sex Assigned at Female 08/23/2022 10:35 AM EST Legal Sex Female 12:11 PM EDT Gender Identity Female 08/23/2022 10:35 AM EST Sexual Orientation Bisexual 08/23/2022 10 :35 AM EST Sexual Orientation Something else 08/23/2022 10 :35 AM EST Last Filed Vital Signs Vital Sign Reading Time Taken Comments Blood Pressure 116/74 04/04/2023 10:25 AM EDT Pulse 82 08/31/2022 10:47 AM EST Temperature - - Respiratory Rate 16 08/31/2022 10:47 AM EST Oxygen Saturation - - Inhaled Oxygen Concentration - - Weight 90.8 kg (200 lb 3.2 oz) 04/04/2023 10:25 AM EDT Height 149.9 cm (4' 11 ) 04/04/2023 10:25 AM EDT Body Mass Index 40.44 04/04/2023 10:25 AM EDT Plan of Treatment Health Maintenance Due Date Last Done Comments Depression Screening 2014 Tobacco Screening 2014 Chlamydia Screening 08/31/2023 08/31/2022 Pap Smear 12/10/2023 12/09/2020 DTaP,Tdap and Td Vaccines (2 - Td or Tdap) 02/14/2024 02/13/2014 Adult BMI Screening 04/04/2024 04/04/2023 Influenza Vaccine 06/01/2025 07/27/2014, , 07/25/2012, Additional history exists Medical Devices Not on file Insurance [place] [employer] Care Teams Metal Patternmaker Relationship Specialty Start Date End Date Helio Campos MD PCP - General Family Medicine 04/04/23
--- OUTSIDE RECORDS SUMMARY | 2025-04-19 10:38 | XMS_ITS | CCD ---
Author Organization [facility] Inform ion Partnership [facility] Care Team Providers Care Photonic Laboratory Technician Name Role Phone MD Helio Florian Primary Care Provider [phone] MD Param Rao Admit Provider [phone] MD Param Rao Attending Provider MARKER, DR JONAS Admitting Unavailable MARKER, DR JONAS Attending Unavailable MARKER, DR JONAS Consulting Unavailable CHIQUI, DR HELIO Verma Primary Care Unavailable CHIQUI, DR HELIO Verma Primary Care Unavailable FRANCK ISABEL Consulting Unavailable RUTH, DR PARK Perez Admitting Unavailable RUTH, DR PARK Perez Attending Unavailable Roseanne Grady Consulting Unavailable TAL IQBAL Admitting Unavailable MIRIAM VEGA Consulting Unavailable CHIQUI, DR HELIO Verma Primary Care Unavailable TAL IQBAL Attending Unavailable TAL IQBAL Consulting Unavailable CHIQUI, DR HEILO Verma Primary Care Unavailable TAL IQBAL Attending Unavailable TAL IQBAL Admitting Unavailable Helio Florian MD Primary Care Provider RENEE DIEZ Attending Unavailable RENEE DIEZ Referring Unavailable BREANA POSADA Attending Unavailable Dante Valadez Attending Unavailab Dante Corral Admitting Unavailab Helio Cornejo Primary Care Unavailable Medications Current Medications Medication [...] 03/23/2025 Discontinued cariprazine 3 mg oral capsule (10 sources) Atypical Antipsychotic Start: 09-15-2022 take 1 capsule by mouth once daily Cariprazine (Vraylar) 3 mg Capsule Active 3 MG PO Daily September 15, 2022 12:00am take 1 capsule by mo [facility] once daily Cariprazine HCl (Vraylar) 1.5 MG capsule Take 1.5 mg by mouth Daily Active End: 03-23-2025 take 1 capsule by mouth in the morning Cariprazine HCl (Vraylar) 6 MG capsule Take 6 mg by mouth in the morning. 03/23/2025 Discontinued letrozole 2.5 mg oral tablet (3 sources) Aromatase Inhibitor Start: 03-23-2025 End: 03-28-2025 take 1 tablet by mouth once daily letrozole (Femara) 2.5 MG chemo tablet Indications: Female infertility , PCOS (polycystic ovarian syndrome) Take 1 tablet (2.5 mg total) by mouth Daily for 5 days. 5 tablet 03/23/2025 03/28/2025 Active 24 hr metFORMIN hydrochloride 500 mg extended release oral tablet (4 sources) Biguanide Start: 03-23-2025 End: 04-22-2025 take [...] 2022 12:00am sertraline 25 mg oral tablet (4 sources) Serotonin Reuptake Inhibitor Start: 03-18-2025 take [...] 10-05-2021 Episodic Other aftercare (1 source) Other fci (current) drug therapy; Translations: [OTH RESIDENTIAL CURRENT DRUG THERAPY] Onset: 10-05-2021 Episodic Residual [...] Test Name Value Interpretation Reference Range Facility ALL PROGESTERONEon 5 PROGESTERONE 9.5 ng/mL . [facility] Comment on above: Follicular phase 0.1 - 0.9 Luteal phase 1.8 - 23.9 Ovulation phase 0.1 - 12.0 First trimester 11.0 - 44.3 Second trimester 25.4 - 83.3 Third trimester 58.7 - 214.0 Postmenopausal 0.0 - 0.1 Performed at: [facility] [address] [id number] [employer]uler Pusher: Ilya Manjarrez PhD, Phone: [phone] [facility]LR HEMOGLOBIN A1Con 025 Glucose [Mass/Vol] 105 mg/dL [facility] HbA1c (Bld) [Mass fraction] 5.3 % 4.5 - 6.2 % [facility] Comment on above: ADA RECOMMENDED LIMI T 4.0 - 6.0 ADA THERAPEUTIC TARGET < 7.0 ACTION SUGGESTED > 7.0 [facility] US PELVIC COMPLETE W/ TVon 0 03-24-2025 US PELVIC COMPLETE W/ TV EXAM: US PELVIC COMPLETE W/ TV HISTORY: PCOS. COMPARISON: None available. TECHNIQUE: Two-dimensional transabdominal grayscale ultrasound imaging of the pelvis was performed. Color flow Doppler imaging of the ovaries was also performed. Transvaginal was performed. FINDINGS: UTERUS 7.2 x 3.6 x 5.6 cm The uterus is anteverted in position and demonstrates a normal, homogeneous echotexture. ENDOMETRIUM 0.2 cm The endometrium demonstrates a normal, homogeneous echotexture. RIGHT OVARY 3.0 x 1.5 x 1.9 cm The right ovary demonstrates a normal echotexture. The ovarian volume is 5 mL. There is normal color Doppler flow. LEFT OVARY 2.9 x 1.3 x 2.5 cm The left ovary demonstrates a normal echotexture. The ovarian volume is 5 mL. There is normal color Doppler flow. No fluid is present within the cul-de-sac. IMPRESSION: 1. Unremarkable ultrasound of the pelvis. 2. Normal color Doppler flow within the bilateral ovaries. Interpreted by: Electronically signed by PAYAL PLUMMER II, MD, PHD at 25-Mar-2025 07:52:19 AM [facility] Normal Not Available Comment on above: Order Comment: US PE LVIS-TRANSVAG IF INDICATED Patient's last menstrual period was 03/21/2025. Cholesterol [Mass/volume] in Serum or PlasmaOrdered By: Param Rao on 09-13-2022 Cholesterol [Mass/Vol] 141 mg/dL 140-200 [facility] Comment on above: Chol less than 200 m g/dl low riskChol 201-239 mg/dl borderline riskChol 240 mg/dl and greater high risk Cholesterol in LDL Calc [Mas s/Vol]Ordered By: Param Rao on 09-13-2022 Cholesterol in LDL [Mass/Vol] 94 mg/dL 0-100 [facility] Comment on above: LDL ATP III CLASSIFI CATIONLDL less than 100 mg/dL OptimalLDL 100-129 mg/dL Near or above optimalLDL 130-159 mg/dL Borderline highLDL 160-189 mg/dL HighLDL greater than 189 mg/dL Very high Cholesterol in VLDL Calc [Ma ss/Vol]Ordered By: Param Rao on 09-13-2022 Cholesterol in VLDL [Mass/Vol] 9 mg/dL [facility] No Panel InformationOrdered By: Param Rao on 09-13-2022 25-Hydroxy Vitamin D Total 11.9 ng/mL 30-100 [facility] Comment on above: VITAMIN D STATUS 25( OH)VITAMIN D RANGE (ng/mL) Deficient <20 Insufficient 20 to <30Sufficient 30 to 100Reference: Zee MERCADO,ySdnee BARRAGAN, Prabhu DOWNS, et al. Evaluation,treatment, and prevention of vitamin D deficiency; an Endocrine Society clinical practice guideline. JCEM. 2010; 96(7):1911-30. Serum or plasma high density lipoprotein (HDL) cholesterol measurementOrdered By: Param Rao on 09-13-2022 Cholesterol in HDL [Mass/Vol] 38 mg/dL 35-85 [facility] Comment on above: HDL CHOL ATP-III CLA SSIFICATION Cardiovascular RiskHDL > or equal to 60 mg/dL LOWHDL < 40 mg/dL HIGH Serum or plasma total choles terol/high density lipoprotein (HDL) cholesterol mass ratOrdered By: Param Rao on 09-13-2022 Cholesterol.total/Chol esterol in HDL [Mass ratio] 3.7 {ratio} <5.0 [facility] TSH DL <= 0.005 mIU/L QnOrde red By: Param Rao on 09-13-2022 TSH Qn 0.81 m[IU]/L 0.45-5.33 [facility] Triglyceride [Mass/volume] i n Serum or PlasmaOrdered By: Param Rao on 09-13-2022 Triglyceride [Mass/Vol] 45 mg/dL 35-149 [facility] Comment on above: TRIG ATP III CLASSIF ICATIONTRIG less than 150 mg/dL NormalTRIG 150-199 mg/dL Borderline highTRIG 200-500 mg/dL High TRIG greater than 500 mg/dL Very highStandard traceable to the Center for Disease Conrtrol and Prevention (CDC) test method. ACETAMINOPHENon 09-12-2022 Acetaminophen [Mass/Vol] ug/mL Critically low 10.0-30.0 [facility] Comment on above: Performed By: #### S ALYC, ACET, CMP #### [facility] [address] [place] [address] Dr. Machelle Garcia CBC AUTO DIFFon 09-12-2022 BASO # 0.0 103/ul Normal 0.0-0.1 [facility] Comment on above: Performed By: #### C BC #### [facility] [address] [place] [address] Dr. Machelle Garcia Basophils/100 WBC (Bld) 0.4 % Normal 0.2-2.0 [facility] Comment on above: Performed By: #### C BC #### [facility] [address] [place] [address] Dr. Machelle Garcia EO # 0.1 103/ul Normal 0.0-0.7 [facility] Comment on above: Performed By: #### C BC #### [facility] [address] [place] [address] Dr. Machelle Garcia Eosinophils/100 WBC (Bld) 0.8 % Critically low 0.9-7.0 [facility] Comment on above: Performed By: #### C BC #### [facility] [address] [place] [address] Dr. Machelle Garcia Erythrocyte distribution width (RBC) [Ratio] 12.4 % Normal 11.0-15.0 [facility] Comment on above: Performed By: #### C BC #### [facility] [address] [place] [address] Dr. Machelle Garcia Hematocrit (Bld) [Volume fraction] 40.4 % Normal 36.0-48.0 [facility] Comment on above: Performed By: #### C BC #### [facility] [address] [place] [address] Dr. Machelle Garcia Hemoglobin (Bld) [Mass/Vol] 14.3 g/dL Normal 12.0-16.0 [facility] Comment on above: Performed By: #### C BC #### [facility] [address] [place] [address] Dr. Machelle Garcia IG # 0.02 10e3/ul Normal 0.00-0.03 [facility] Comment on above: Performed By: #### C BC #### [facility] [address] [place] [address] Dr. Machelle Garcia IG % 0.3 % Normal 0.0-0.5 [facility] Comment on above: Performed By: #### C BC #### [facility] [address] [place] [address] Dr. Machelle Garcia LYMPH # 1.0 103/ul Critically low 1.2-3.8 [facility] Comment on above: Performed By: #### C BC #### [facility] [address] [place] [address] Dr. Machelle Garcia Lymphocytes/100 WBC (Bld) 14.1 % Critically low 20.5-60.0 [facility] Comment on above: Performed By: #### C BC #### [facility] [address] [place] [address] Dr. Machelle Garcia MANUAL DIFF REQ NO Normal [facility] Comment on above: Performed By: #### C BC #### [facility] [address] [place] [address] Dr. Machelle Garcia MCH (RBC) [Entitic mass] 29.7 pg Normal 26.7-34.0 [facility] Comment on above: Performed By: #### C BC #### [facility] [address] [place] [address] Dr. Machelle Garcia MCHC (RBC) [Mass/Vol] 35.4 g/dL Critically high 29.9-35.2 [facility] Comment on above: Performed By: #### C BC #### [facility] [address] [place] [address] Dr. Machelle Garcia MCV (RBC) [Entitic vol] 83.8 fL Normal 81.0-99.0 [facility] Comment on above: Performed By: #### C BC #### [facility] [address] [place] [address] Dr. Machelle Garcia MONO # 0.9 103/ul Critically high 0.3-0.8 [facility] Comment on above: Performed By: #### C BC #### [facility] [address] [place] [address] Dr. Machelle Garcia Monocytes/100 WBC (Bld) 12.6 % Critically high 1.7-12.0 [facility] Comment on above: Performed By: #### C BC #### [facility] [address] [place] [address] Dr. Machelle Garcia NEUT # 5.2 103/ul Normal 1.4-6.5 [facility] Comment on above: Performed By: #### C BC #### [facility] [address] [place] [address] Dr. Machelle Garcia Neutrophils/100 WBC (Bld) 71.8 % Normal 43.0-75.0 [facility] Comment on above: Performed By: #### C BC #### [facility] [address] [address] [address] Machelle Garcia Platelet mean volume (Bld) [Entitic vol] 9.9 fL Normal 9.5-13.5 [facility] Comment on above: Performed By: #### C BC #### [facility] [address] [address] [address] Machelle Garcia PLT 245 103/ul Normal 150-450 [facility] Comment on above: Performed By: #### C BC #### [facility] [address] [address] [address] Machelle Garcia RBC 4.82 106/ul Normal 4.20-5.40 [facility] Comment on above: Performed By: #### C BC #### [facility] [address] [place] [address] Dr. Machelle Garcia WBC 7.2 103/ul Normal 4.0-11.0 [facility] Comment on above: Performed By: #### C BC #### [facility] [address] [place] [address] Dr. Machelle Garcia DRUG SCREEN RAPID (URINE)on 09-12-2022 AMP Negative Normal NEGATIVE [facility] Comment on above: Performed By: #### D RUGRPD ####[facility] [address] [address]Dr. Machelle Garcia BAR Negative Normal NEGATIVE [facility] Comment on above: Performed By: #### D RUGRPD ####[facility] [address] [address]DrMarilee Garcia BUP Negative Normal NEGATIVE [facility] Comment on above: Performed By: #### D RUGRPD ####[facility] [address] [address]DrMarilee Gracia BZO Negative Normal NEGATIVE [facility] Comment on above: Performed By: #### D RUGRPD ####[facility] [address] [address]DrMarilee Garcia JOHN Negative Normal NEGATIVE [facility] Comment on above: Performed By: #### D RUGRPD ####[facility] [address] [place], [place] [address]Dr. Machelle Garcia CUT-OFFS SEE BELOW Normal [facility] Comment on above: Result Comment: AMP (Amphetamine): 500ng/mL, BAR (Barbituates): 200 ng/mL, BZO (Benzodiazepines): 150 ng/mL, BUP (Buprenorphine): 10 ng/mL, JOHN (Cocaine): 150 ng/mL, mAMP (Methamphetamine): 500 ng/mL, MTD (Methadone): 200 ng/mL, OPI (Opiates): 100 ng/mL, OXY (Oxycodone): 100 ng/mL, PCP (Phencyclidine): 25 ng/mL, PPX (Propoxyphene): 300 ng/mL, THC (Cannabinoids): 50 ng/mL, TCA (Trycyclic Antidepressants): 300 ng/mL Performed By: #### D RUGRPD ####[facility] [address] [place], [place] [address]Dr. Machelle Garcia DRUG CUT HEADER DRUG CLASS TEST SYSTEM CUT-OFF CONCENTRATIONS ARE FOLLOWS: Normal [facility] Comment on above: Performed By: #### D RUGRPD ####[facility] [address] [place], [place] [address]Dr. Machelle Garcia mAMP Negative Normal NEGATIVE [facility] Comment on above: Performed By: #### D RUGRPD ####[facility] [address] [place], [place] [address]Dr. Machelle Garcia MTD Negative Normal NEGATIVE [facility] Comment on above: Performed By: #### D RUGRPD ####[facility] [address] [place], [place] [address]Dr. Machelle Garcia OPI Negative Normal NEGATIVE [facility] Comment on above: Performed By: #### D RUGRPD ####[facility] [address] [place], [place] [address]Dr. Machelle Garcia OXY Negative Normal NEGATIVE [facility] Comment on above: Performed By: #### D RUGRPD ####[facility] [address] [address]Dr. Machelle Garcia PCP Negative Normal NEGATIVE [facility] Comment on above: Performed By: #### D RUGRPD ####[facility] [address] [address]Dr. Machelle Garcia PPX Negative Normal NEGATIVE [facility] Comment on above: Performed By: #### D RUGRPD ####[facility] [address] [address]Dr. Machelle Garcia TCA Negative Normal NEGATIVE [facility] Comment on above: Performed By: #### D RUGRPD ####[facility] [address] [address]Dr. Machelle Garcia THC Positive Abnormal NEGATIVE [facility] Comment on above: Performed By: #### D RUGRPD ####[facility] [address] [address]Dr. Machelle Garcia ER URINE PROFILEon 2 Bilirubin Ql (U) Negative Normal NEGATIVE [facility] Comment on above: Performed By: #### P REGU, ERUR #### [facility] [address] [address] [address] Machelle Garcia Clarity (U) CLEAR Normal CLEAR [facility] Comment on above: Performed By: #### P REGU, ERUR #### [facility] [address] [address] [address] Machelle Garcia Color (U) LT. YELLOW Normal YELLOW [facility] Comment on above: Performed By: #### P REGU, ERUR #### [facility] [address] [address] [address] Machelle Garcia ERUAHMaci A micrscopic examination will be performed if indicated. Normal [facility] Comment on above: Performed By: #### P REGU, ERUR #### [facility] [address] [address] [address] Machelle Garcia Glucose Ql (U) Negative Normal NEGATIVE [facility] Comment on above: Performed By: #### P REGU, ERUR #### [facility] [address] [address] [address] Machelle Garcia Hemoglobin Ql (U) Negative Normal NEGATIVE [facility] Comment on above: Performed By: #### P REGU, ERUR #### [facility] [address] [address] [address] Machelle Garcia Ketones Ql (U) TRACE Abnormal NEGATIVE [facility] Comment on above: Performed By: #### P REGU, ERUR #### [facility] [address] [address] [address] Machelle Garcia LEUKOCYTES Negative Normal NEGATIVE [facility] Comment on above: Performed By: #### P REGU, ERUR #### [facility] [address] [place] [address] Dr. Machelle Garcia Nitrite Ql (U) Negative Normal NEGATIVE [facility] Comment on above: Performed By: #### P REGU, ERUR #### [facility] [address] [place] [address] Dr. Machelle Garcia pH (U) 5.5 [pH] Normal 5-9 [facility] Comment on above: Performed By: #### P REGU, ERUR #### [facility] [address] [place] [address] Dr. Machelle Garcia SPEC GRAVITY 1.020 Normal 1.005-<=1.02 5 [facility] Comment on above: Performed By: #### P REGU, ERUR #### [facility] [address] [place] [address] Dr. Machelle Garcia UA PROTEIN Negative Normal NEGATIVE/ TRACE [facility] Comment on above: Performed By: #### P REGU, ERUR #### [facility] [address] [place] [address] Dr. Machelle Garcia UR MICRO IND NOT INDICATED Normal [facility] Comment on above: Performed By: #### P REGU, ERUR #### [facility] [address] [place] [address] Dr. Machelle Garcia Urobilinogen Qn (U) 0.2 {Jeanine'U}/dL Normal 0.2 - 1. 0 [facility] Comment on above: Performed By: #### P REGU, ERUR #### [facility] [address] [address] [address] Machelle Garcia ETHANOL (BLD ALC)on 09-12-20 22 ALC NOTE NOTE: 80 mg/dl is th e legal limit for a blood alcohol level Normal [facility] Comment on above: Performed By: #### E TH ####[facility] [address] [id number]. Machelle Garcia Ethanol [Mass/Vol] mg/dL Normal [facility] Comment on above: Performed By: #### E TH ####[facility] [address] [id number]. Machelle Garcia URon 09-12-2022 , QUAL Negative Normal NEGATIVE [facility] Comment on above: Performed By: #### P CALLY, ERUR #### [facility] [address] [address] [address] Machelle Garcia PROF 14(COMP METB)on 022 Albumin [Mass/Vol] 3.9 g/dL Normal 3.4-5.0 [facility] Comment on above: Performed By: #### S KENNA ACET, CMP #### [facility] [address] [address] [address] Machelle Garcia Albumin/Globulin [Mass ratio] 1.1 {ratio} Normal [facility] Comment on above: Performed By: #### S KENNA ACET, CMP #### [facility] [address] [address] [address] Machelle Garcia ALP [Catalytic activity/Vol] 89 U/L Normal 46-116 [facility] Comment on above: Performed By: #### S KENNA ACET, CMP #### [facility] [address] [address] [address] Machelle Garcia ALT [Catalytic activity/Vol] 19 U/L Normal 14-59 [facility] Comment on above: Performed By: #### S KENNA ACET, CMP #### [facility] [address] [address] [address] Machelle Garcia Anion gap [Moles/Vol] 12.1 mmol/L Normal [facility] Comment on above: Performed By: #### S KENNA ACET, CMP #### [facility] [address] [address] [address] Machelle Garcia AST [Catalytic activity/Vol] 16 U/L Normal 15-37 [facility] Comment on above: Performed By: #### S KENNA ACET, CMP #### [facility] [address] [address] [address] Machelle Garcia Bilirubin [Mass/Vol] 0.4 mg/dL Normal 0.2-1.0 [facility] Comment on above: Performed By: #### S ALTOSHA ACET, CMP #### [facility] [address] [place] [address] Dr. Machelle Garcia Calcium [Mass/Vol] 9.0 mg/dL Normal 8.5-10.1 [facility] Comment on above: Performed By: #### S ALTOSHA ACET, CMP #### [facility] [address] [place] [address] Dr. Machelle Garcia Chloride [Moles/Vol] 104 mmol/L Normal 98-107 [facility] Comment on above: Performed By: #### S ALTOSHA ACET, CMP #### [facility] [address] [place] [address] Dr. Machelle Garcia CO2 [Moles/Vol] 25.5 mmol/L Normal 21.0-32.0 [facility] Comment on above: Performed By: #### S ALYC ACET, CMP #### [facility] [address] [place] [address] Dr. Machelle Garcia Creatinine [Mass/Vol] 0.86 mg/dL Normal 0.55-1.02 [facility] Comment on above: Performed By: #### S ALTOSHA ACET, CMP #### [facility] [address] [place] [address] Dr. Machelle Garcia EGFR-AF FAROESE >60 Normal >=60 [facility] Comment on above: Performed By: #### S ALTOSHA ACET, CMP #### [facility] [address] [address] [address] Machelle Garcia EGFR-NON AF FAROESE >60 Normal >=60 [facility] Comment on above: Performed By: #### S ALYC, ACET, CMP #### [facility] [address] [address] [address] Machelle Garcia Globulin (S) [Mass/Vol] 3.4 g/dL Normal [facility] Comment on above: Performed By: #### S ALYC, ACET, CMP #### [facility] [address] [address] [address] Machelle Garcia Glucose [Mass/Vol] 102 mg/dL Normal 74-106 [facility] Comment on above: Performed By: #### S ALYC, ACET, CMP #### [facility] [address] [address] [address] Machelle Garcia Potassium [Moles/Vol] 3.6 mmol/L Normal 3.5-5.1 [facility] Comment on above: Performed By: #### S ALYC, ACET, CMP #### [facility] [address] [address] [address] Machelle Garcia Protein [Mass/Vol] 7.3 g/dL Normal 6.4-8.2 [facility] Comment on above: Performed By: #### S ALYC, ACET, CMP #### [facility] [address] [address] [address] Machelle Garcia Sodium [Moles/Vol] 138 mmol/L Normal 136-145 [facility] Comment on above: Performed By: #### S ALYC, ACET, CMP #### [facility] [address] [address] [address] Machelle Garcia Urea nitrogen [Mass/Vol] 10.0 mg/dL Normal 7.0-18.0 [facility] Comment on above: Performed By: #### S ALYC, ACET, CMP #### [facility] [address] [address] [address] Machelle Garcia Urea nitrogen/Creatinine [Mass ratio] 11.6 mg/mg Normal [facility] Comment on above: Performed By: #### S KENNA ACET, CMP #### [facility] [address] [place] [address] Dr. Machelle Garcia SALICYLATEon 09-12-2022 SALICYLATE <2.8 Normal <=19.9 [facility] Comment on above: Performed By: #### S ALTOSHA ACET, CMP #### [facility] [address] [place] [address] Dr. Machelle Garcia XR CHEST 1 Von [...] ROSEANNE GRADY Date: 2021-10-03 20:52 Normal [facility] CBC AUTO DIFFon 09-30-2021 BASO # 0.0 103/ul Normal 0.0-0.1 [facility] Comment on above: Performed By: #### C BC #### [facility] [address] [place] [address] Dr. Machelle Garcia Basophils/100 WBC (Bld) 0.4 % Normal 0.2-2.0 [facility] Comment on above: Performed By: #### C BC #### [facility] [address] [place] [address] Dr. Machelle Garcia EO # 0.1 103/ul Normal 0.0-0.7 [facility] Comment on above: Performed By: #### C BC #### [facility] [address] [place] [address] Dr. Machelle Garcia Eosinophils/100 WBC (Bld) 1.3 % Normal 0.9-7.0 [facility] Comment on above: Performed By: #### C BC #### [facility] [address] [place] [address] Dr. Machelle Garcia Erythrocyte distribution width (RBC) [Ratio] 12.8 % Normal 11.0-15.0 [facility] Comment on above: Performed By: #### C BC #### [facility] [address] [place] [address] Dr. Machelle Garcia Hematocrit (Bld) [Volume fraction] 40.7 % Normal 36.0-48.0 [facility] Comment on above: Performed By: #### C BC #### [facility] [address] [place] [address] Dr. Machelle Garcia Hemoglobin (Bld) [Mass/Vol] 13.7 g/dL Normal 12.0-16.0 [facility] Comment on above: Performed By: #### C BC #### [facility] [address] [place] [address] Dr. Machelle Garcia IG # 0.03 10e3/ul Normal 0.00-0.03 [facility] Comment on above: Performed By: #### C BC #### [facility] [address] [place] [address] Dr. Machelle Garcia IG % 0.4 % Normal 0.0-0.5 [facility] Comment on above: Performed By: #### C BC #### [facility] [address] [place] [address] Dr. Machelle Garcia LYMPH # 0.6 103/ul Critically low 1.2-3.8 [facility] Comment on above: Performed By: #### C BC #### [facility] [address] [place] [address] Dr. Machelle Garcia Lymphocytes/100 WBC (Bld) 8.8 % Critically low 20.5-60.0 [facility] Comment on above: Performed By: #### C BC #### [facility] [address] [place] [address] Dr. Machelle Garcia MANUAL DIFF REQ NO Normal [facility] Comment on above: Performed By: #### C BC #### [facility] [address] [place] [address] Dr. Machelle Garcia MCH (RBC) [Entitic mass] 29.0 pg Normal 26.7-34.0 [facility] Comment on above: Performed By: #### C BC #### [facility] [address] [address] [address] Machelle Garcia MCHC (RBC) [Mass/Vol] 33.7 g/dL Normal 29.9-35.2 [facility] Comment on above: Performed By: #### C BC #### [facility] [address] [place] [address] Dr. Machelle Garcia MCV (RBC) [Entitic vol] 86.2 fL Normal 81.0-99.0 [facility] Comment on above: Performed By: #### C BC #### [facility] [address] [place] [address] Dr. Machelle Garcia MONO # 1.0 103/ul Critically high 0.3-0.8 [facility] Comment on above: Performed By: #### C BC #### [facility] [address] [place] [address] Dr. Machelle Garcia Monocytes/100 WBC (Bld) 14.4 % Critically high 1.7-12.0 [facility] Comment on above: Performed By: #### C BC #### [facility] [address] [place] [address] Dr. Machelle Garcia NEUT # 5.1 103/ul Normal 1.4-6.5 [facility] Comment on above: Performed By: #### C BC #### [facility] [address] [place] [address] Dr. Machelle Garcia Neutrophils/100 WBC (Bld) 74.7 % Normal 43.0-75.0 [facility] Comment on above: Performed By: #### C BC #### [facility] [address] [place] [address] Dr. Machelle Garcia Platelet mean volume (Bld) [Entitic vol] 9.7 fL Normal 9.5-13.5 [facility] Comment on above: Performed By: #### C BC #### [facility] [address] [place] [address] Dr. Machelle Garcia PLT 211 103/ul Normal 150-450 [facility] Comment on above: Performed By: #### C BC #### [facility] [address] [address] [address] Machelle Garcia RBC 4.72 106/ul Normal 4.20-5.40 [facility] Comment on above: Performed By: #### C BC #### [facility] [address] [place] [address] Dr. Machelle Garcia WBC 6.8 103/ul Normal 4.0-11.0 [facility] Comment on above: Performed By: #### C BC #### [facility] [address] [address] [address] Machelle Garcia Covid-19 PCR ([facility])on 09-02 SARS-CoV-2 (COVID-19) RNA BERNARDINO+probe Ql (Unsp spec) Detected Critically abnormal NOT DETECTED [facility] Comment on above: Result Comment: This test is not yet approved or cleared by the [place] FDA. When there are no FDA-approved or cleared tests available, and other criteria are met, FDA can make tests available under an emergency access mechanism called an Emergency Use Authorization (EUA). The EUA for this test is supported by the [place] Keeper of Health and Human Service's declaration that [...] used). Performed By: #### C VDTBH #### [facility] [address] [place] [address] Dr. Machelle Garcia D-DIMERon 09-30-2021 D-DIMER 0.37 mg/L FEU Normal 0.19-0.50 [facility] Comment on above: Performed By: #### D DIM #### [facility] [address] [place] [address] Dr. Machelle Garcia D-DIMER COMMENTS SEE BELOW Normal [facility] Comment on above: Result Comment: Incr [...] hospitalization. Performed By: #### D DIM #### [facility] [address] [address] [address] Machelle Garcia PROF 14(COMP METB)on 021 Albumin [Mass/Vol] 3.5 g/dL Normal 3.5-5.0 [facility] Comment on above: Performed By: #### C MP ####[facility] [address] [address]DrMarilee Garcia Albumin/Globulin [Mass ratio] 0.9 {ratio} Normal [facility] Comment on above: Performed By: #### C MP ####[facility] [address] [address]Dr. Machelle Garcia ALP [Catalytic activity/Vol] 81 U/L Normal 38-126 [facility] Comment on above: Performed By: #### C MP ####[facility] [address] [address]Dr. Machelle Garcia ALT [Catalytic activity/Vol] 44 U/L Normal 9-52 [facility] Comment on above: Performed By: #### C MP ####[facility] [address] [address]Dr. Machelle Garcia Anion gap [Moles/Vol] 12.2 mmol/L Normal [facility] Comment on above: Performed By: #### C MP ####[facility] [address] [address]Dr. Machelle Garcia AST [Catalytic activity/Vol] 17 U/L Normal 14-36 [facility] Comment on above: Performed By: #### C MP ####[facility] [address] [address]Dr. Machelle Garcia Bilirubin [Mass/Vol] 0.3 mg/dL Normal 0.2-1.3 [facility] Comment on above: Performed By: #### C MP ####[facility] [address] [place], [place] [address]Dr. Machelle Garcia Calcium [Mass/Vol] 8.7 mg/dL Normal 8.4-10.2 [facility] Comment on above: Performed By: #### C MP ####[facility] [address] [place], [place] [address]Dr. Machelle Garcia Chloride [Moles/Vol] 103 mmol/L Normal 98-107 [facility] Comment on above: Performed By: #### C MP ####[facility] [address] [place], [place] [address]Dr. Machelle Garcia CO2 [Moles/Vol] 25.3 mmol/L Normal 22.0-30.0 [facility] Comment on above: Performed By: #### C MP ####[facility] [address] [place], [place] [address]Dr. Machelle Garcia Creatinine [Mass/Vol] 0.87 mg/dL Normal 0.52-1.04 [facility] Comment on above: Performed By: #### C MP ####[facility] [address] [place], [place] [address]Dr. Machelle Garcia EGFR-AF FAROESE >60 Normal >=60 [facility] Comment on above: Performed By: #### C MP ####[facility] [address] [place], [place] [address]Dr. Machelle Garcia EGFR-NON AF FAROESE >60 Normal >=60 [facility] Comment on above: Performed By: #### C MP ####[facility] [address] [place], [place] [address]Dr. Machelle Garcia Globulin (S) [Mass/Vol] 3.8 g/dL Normal [facility] Comment on above: Performed By: #### C MP ####[facility] [address] [place], [place] [address]Dr. Machelle Garcia Glucose [Mass/Vol] 99 mg/dL Normal 74-106 [facility] Comment on above: Performed By: #### C MP ####[facility] [address] [address]Dr. Machelle Garcia Potassium [Moles/Vol] 3.5 mmol/L Normal 3.4-5.0 [facility] Comment on above: Performed By: #### C MP ####[facility] [address] [address]Dr. Machelle Jose Protein [Mass/Vol] 7.3 g/dL Normal 6.1-8.2 [facility] Comment on above: Performed By: #### C MP ####[facility] [address] [address]Dr. Machelle Jose Sodium [Moles/Vol] 137 mmol/L Normal 137-145 [facility] Comment on above: Performed By: #### C MP ####[facility] [address] [address]Dr. Machelle Jose Urea nitrogen [Mass/Vol] 11.0 mg/dL Normal 6.4-19.3 [facility] Comment on above: Performed By: #### C MP ####[facility] [address] [place], [place] [address]Dr. Machelle Jose Urea nitrogen/Creatinine [Mass ratio] 12.6 mg/mg Normal [facility] Comment on above: Performed By: #### C MP ####[facility] [address] [place], [place] [address]Dr. Machelle Jose Cytology Cervical or vaginal smear or scraping studyOrdered By: Beata Greenberg on 12-09-2020 [facility] Vital Signs Date Time Vital Sign Value Performing Clinician Facility 03-23-2025 09:02-040 Body height 149.9 cm [employer] Work Phone: [facility] 03-23-2025 09:02-0400 Body mass index (BMI) [Ratio] 51.71 kg/m2 Renee [employer] Work Phone: [facility] 03-23-2025 09:02-0400 Body weight 116.12 kg Renee Chary DO Work Phone: [facility] 03-23-2025 09:02-0400 Diastolic blood pressure 70 mm[Hg] Renee Chary DO Work Phone: [facility] 03-23-2025 09:02-0400 Systolic blood pressure 120 mm[Hg] Renee Chary DO Work Phone: [facility] 09-09-2024 12:49-0500 Body mass index (BMI) [Ratio] 63.11 kg/m2 Breana Posada C ENGINEER Work Phone: [facility] 09-09-2024 12:49-0500 Body temperature 98.1 [degF] Breana Posada C ENGINEER Work Phone: [facility] 09-09-2024 12:49-0500 Body weight 105.9 kg Breana Posada C ENGINEER Work Phone: [facility] 09-09-2024 12:49-0500 Diastolic blood pressure 80 mm[Hg] Breana Posada C ENGINEER Work Phone: [facility] 09-09-2024 12:49-0500 Heart rate 103 /min Breana Posada C ENGINEER Work Phone: [facility] 09-09-2024 12:49-0500 SaO2% (BldA) [Mass fraction] 98 % Breana Posada C ENGINEER Work Phone: [facility] 09-09-2024 12:49-0500 Systolic blood pressure 100 mm[Hg] Breana Posada C ENGINEER Work Phone: [facility] 09-15-2022 07:26-0500 Body temperature 98.4 [degF] MD Helio Florian Work Phone: [facility] 09-15-2022 07:26-0500 Diastolic blood pressure 70 mm[Hg] MD Helio Florian Work Phone: [facility] 09-15-2022 07:26-0500 Heart rate 92 /min MD Helio Florian Work Phone: [facility] 09-15-2022 07:26-0500 Respiratory rate 16 /min MD Helio Florian Work Phone: [facility] 09-15-2022 07:26-0500 SaO2% (BldA) [Mass fraction] 97 % MD Helio Florian Work Phone: [facility] 09-15-2022 07:26-0500 Systolic blood pressure 117 mm[Hg] MD Helio Florian Work Phone: [facility] 09-13-2022 00:57-0500 Body height 149.86 cm MD Helio Florian Work Phone: [facility] 09-13-2022 00:57-0500 Body weight 90.71 kg MD Helio Florian Work Phone: [facility] Encounters Encounter Date Encounter Type Care Provider Facility Start: 04-14-2025 ambulatory Dante Esparza acility:[facility] Start: 04-10-2025 End: 04-11-2025 Clinisync Result Encounter Renee Chary DO Work Phone: [facility] Unsolicited Start: 04-10-2025 End: 04-11-2025 Clinisync Result Encounter Renee Chary DO Work Phone: [facility] Unsolicited Start: 03-24-2025 End: 03-24-2025 Clinisync Result Encounter Renee Chary DO Work Phone: [facility] Unsolicited Start: 03-24-2025 End: 03-24-2025 Clinisync Result Encounter Renee Chary DO Work Phone: [facility] Unsolic[facility] Start: 03-24-2025 End: 03-24-2025 ambulatory RENEE CHARY Not Available Start: 03-23-2025 End: 03-23-2025 Bamboo flowsheet Renee [...] Female infertility; PCOS (polycystic ovarian syndrome) Start: 09-09-2024 End: 09-09-2024 Office outpatient visit 25 minutes Breana Posada C ENGINEER Work Phone: [facility] Comment on above: Acute cough (Primary Dx); Bronchitis Start: 09-09-2024 End: 09-09-2024 ambulatory BREANA POSADA Not Available Start: 09-13-2022 End: 09-15-2022 Evaluation and management of inpatient MD Helio Florian Work Phone: [facility] Start: 09-12-2022 End: 09-13-2022 ambulatory TAL IQBAL Facility:[facility] Start: 10-19-2021 End: 10-19-[address] HELIO FLORIAN Facility:[facility] Start: 10-03-2021 End: 10-03-[address] HELIO FLORIAN Facility:[facility] Start: 09-30-2021 End: 09-30-[address] SUMI DURON Facility:[facility] Procedures Date Procedure Procedure Detail Performing Clinician Start: 04-10-2025 ALL PROGESTERONE Renee Chary DO Work Phone: Start: 03-24-2025 MLR HEMOGLOBIN A1C Core y Chary DO Work Phone: Start: 12-09-2020 Cytp cerv/vag auto t hin layer prep mnl screen Albert Barnard Plan of Treatment Date Care Activity Detail Author Start: 07-27-2025 End: 07-27-2025 Patient encounter procedure 07/27/2025 9:50 AM EDT Office Visit [facility] [address] [place] [address] Renee Diez DO [address] [place] [address] [facility] Start: 06-01-2025 Influenza vaccination [facility] Start: 03-24-2025 End: 03-24-2025 Professional / ancillary services management 03/24/2025 10:00 AM EDT Ancillary Procedure [facility] [address] [place] [address] [facility] Start: 03-23-2025 End: 03-23-2026 Antimullerian hormone (AMH) Antimullerian hormone (AMH) Lab Routine Female infertility PCOS (polycystic ovarian syndrome) Expected: 03/23/2025, Expires: 03/23/2026 [facility] Comment on above: Expected: 03/23/2025 , Expires: 03/23/2026 Start: 03-23-2025 End: 03-23-2026 CBC W Auto Differential panel - Blood CBC and differential Lab Routine Female infertility PCOS (polycystic ovarian syndrome) Expected: 03/23/2025 (Approximate), Expires: 03/23/2026 [facility] Comment on above: Expected: 03/23/2025 (Approximate), Expires: 03/23/2026 Start: 03-23-2025 End: 03-23-2026 DHEA DHEA Lab Routine Female infertility PCOS (polycystic ovarian syndrome) Expected: 03/23/2025, Expires: 03/23/2026 [facility] Comment on above: Expected: 03/23/2025 , [...] ovarian syndrome) Expected: 03/23/2025 (Approximate), Expires: 03/23/2026 [facility] Work Phone: Comment on above: Expected: 03/23/2025 (Approximate), Expires: 03/23/2026 Start: 03-23-2025 End: 03-23-2026 Hemoglobin A1c/Hemoglobin.total in Blood Hemoglobin A1c Lab Routine Female infertility PCOS (polycystic ovarian syndrome) Expected: 03/23/2025 (Approximate), Expires: 03/23/2026 [facility] Comment on above: Expected: 03/23/2025 (Approximate), Expires: 03/23/2026 Start: 03-23-2025 End: 03-23-2026 Luteinizing hormone Luteinizing hormone Lab Routine Female infertility PCOS (polycystic ovarian syndrome) Expected: 03/23/2025 (Approximate), Expires: 03/23/2026 [facility] Comment on above: Expected: 03/23/2025 (Approximate), Expires: 03/23/2026 Start: 03-23-2025 End: 03-23-2026 Thyrotropin [Units/volume] in Serum or Plasma TSH Lab Routine Female infertility PCOS (polycystic ovarian syndrome) Expected: 03/23/2025 (Approximate), Expires: 03/23/2026 [facility] Comment on above: Expected: 03/23/2025 (Approximate), Expires: 03/23/2026 Start: 03-23-2025 End: 03-23-2026 Thyroxine (T4) free [Mass/volume] in Serum or Plasma T4, free Lab Routine Female infertility PCOS (polycystic ovarian syndrome) Expected: 03/23/2025 (Approximate), Expires: 03/23/2026 [facility] Comment on above: Expected: 03/23/2025 (Approximate), Expires: 03/23/2026 Start: 03-23-2025 End: 03-23-2026 US Pelvis US Pelvis w/ TV Imaging Routine Female infertility PCOS (polycystic ovarian syndrome) Expected: 03/23/2025, Expires: 03/23/2026 [facility] Comment on above: Expected: 03/23/2025 , Expires: 03/23/2026 Start: 06-01-2024 Influenza vaccination Influenza Vacc ine (#1) [facility] Start: 09-15-2022 [facility] Start: 09-13-2022 Hospital admission [facility] Patient Education Bipolar Disord er ([place]) [facility] [place] Instructions [facility] Work Phone: Patient referral [facility] Work Phone: Progesterone Progesterone Lab Routine Female infertility PCOS (polycystic ovarian syndrome) Ordered: 03/23/2025 [facility] Comment on above: Ordered: 03/23/2025 Immunizations Immunization Date Immunization Notes Care Provider Alexus stratton 07-27-2014 influenza virus vacc ine, unspecified formulation Breana Posada C ENGINEER Work Phone: [facility] Payers Date Payer Category Payer Medicaid (Managed Care) [employer] [id number] 2023 Self-pay [id number] 2002 Unknown [id number] 2002 Unknown [id number] 2002 Unknown [id number] 593 2002 Unknown [id number] 593 2002 Unknown [id number] 1259 2002 Unknown [id number] 1259 2002 Unknown [id number] 1259 1959 Medicaid [id number] Unknown [id number] Social History Date Type Detail Facility Start: 09-13-2022 Tobacco smoking stat [facility] Smoker (finding) [facility] Start: 2000 Sex Assigned At Female F [facility] Start: 04-05-2023 Tobacco smoking stat [facility] Never smoked tobacco [facility] Start: 04-05-2023 Tobacco use and exposure Smokeless tobacco non-user [facility] Start: 04-05-2023 End: 03-23-2025 Alcoholic beverage intake Lifetime non-drinker (finding) [facility] Start: 04-05-2023 End: 03-23-2025 History of Social function [facility] Start: 04-05-2023 End: 03-23-2025 Tobacco use panel [facility] Start: 2002 Sex assigned at Not on file [facility] Goals Date Patient Goal Desired Activity /State Functional Status Date Assessment Result Facility 09-15-2022 Functional status Patient at Baseline [facility] Work Phone: Mental Status Date Assessment Result Facility 09-15-2022 Cognitive function Cognitive Sta tus Patient at Baseline [facility] Work Phone: History of Present illness Narrative 03-23-2025 Faye Sutton LPN - 03/23/2025 8:40 AM EDT Note Date [...] nursing note reviewed. Exam conducted with a lodge officer present. Vitals: Estimated body mass index is [...] to see about safe mood stabilizer than Vrayslader and specialist can reach out to office [...] included. [address] , [address] [facility], [address] P: [phone] F: [phone] HPI Historian of HPI: patient Alexia Tristan [...] Left Turbinates: Enlarged and swollen. Mouth/Throat: Lips: [place]. Mouth: Mucous membranes are moist. Pharynx: Oropharynx [...] capsule; Refill: 0 documented in this encounter [facility] Discharge summary 09-15-2022 Note Date & Type Note Facility 09-15-2022 Discharge summary Note Date/Time September 15, 2022 10:25am [facility] [address] [place] [address] Discharge Summary Signed Patient: Kay Busch MR#: [id number] : 2000 Acct:[id number] Age/Sex: 22 / F Adm Date: 2 Loc: Room: [address] [place] [address]: Param Rao MD Copies to: [...] No activity restrictions. 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 (insert date/time [...] signed by Param Rao MD> 09/15/22 1037 [facility] Work Phone: Progress note 09-14-2022 Note Date & Type Note Facility 09-14-2022 Progress note Note Date/Time September 14, 2022 12:20pm [facility] [address] [place] [address] Psychiatry Progress Note Signed Patient: Kay Busch MR#: [id number] : 2000 Acct:[id number] Age/Sex: 22 / F Adm Date: 2 Loc: Room: [address] [place] [address] Type : ADM IN Attending Dr: Param [...] signed by Param Rao MD> 09/14/22 1220 [facility] Work Phone: History and physical note 09-13-2022 Note Date & Type Note Facility 09-13-2022 History and physical note Note Date/Time September 13, 2022 12:48pm [facility] [address] [place] [address] Psychiatry H&P Signed Patient: Kay Busch MR#: [id number] : 2000 Acct:[id number] Age/Sex: 22 / F Adm Date: 2 Loc: Room: [address] [place] [address] Type: ADM IN Attending Dr: Param Rao [...] signed by Param Rao MD> 09/13/22 1248 [facility] Work Phone: Evaluation note Note Date & Type Note Facility Evaluation note Diagnosis Onset Date Bipolar disorder acute [facility] Work Phone: Evaluation note Note Date & Type Note Facility Evaluation note Diagnosis Acute cough- Primary Bronchitis Bronchitis, not specified as acute or chronic documented in this encounter [facility] Evaluation note Note Date & Type Note Facility Evaluation note Diagnosis Female infertility Female infertility of unspecified origin PCOS (polycystic ovarian syndrome) Polycystic ovaries documented in this encounter [facility] Hospital Discharge instructions Note Date & Type Note Facility Hospital Discharge instructions Additional Instructions Regular diet. No activity restrictions. [facility] Work Phone: Chief Complaint and Reason for [...] Florian MD Primary Care Provider Active Param aRo MD Admit Provider, Attending Provider Active Team Status: Active Member Role Status Dates Helio Florian MD Primary Care Provider Active Photonic Laboratory Technician Relationship Specialty Start Date End Date Helio Florian MD [address] [place] [address] PCP - General Family Medicine 04/05/23 Photonic Laboratory Technician Relationship Specialty Start Date End Date Helio Florian MD [address] [place] [address] PCP - General Family Medicine 04/05/23 [employer] Technician Relationship Specialty Start Date End Date Helio Florian MD [address] [place] [address] PCP - General Family Medicine 04/05/23 [employer] Laboratory Technician Relationship Specialty Start Date End Date Helio Florian MD [address] [place] [address] PCP - General Family Medicine 04/05/23 Phot[employer] Laboratory Technician Relationship Specialty Start Date End Date Helio Florian MD [address] [place] [address] PCP - General Family Medicine 04/05/23 INFORMATION SOURCE (unrecogn ized section and content) DATE CREATED AUTHOR 09/21/2022 [facility] DATE CREATED AUTHOR AUTHOR'S ORGANIZ ATION 03/25/2025 [facility] EPIC DATE CREATED AUTHOR AUTHOR'S ORGANIZ ATION 04/17/[address] [facility] Reason for Visit (unrecogniz ed section and [...] BE BASED ON THE PRIMARY CLINICAL RECORDS. [employer] provides no warranty or guarantee of the accuracy or completeness of information in this document.
== END 2025-04-30 17:05 | disposition home or self-care (01) ==
LOC: LAB 10:35
PROVIDERS: PCP Nurse Practitioner Family
DX: Z51.81 Encounter for therapeutic drug level monitoring (principal); Z32.00 Encounter for pregnancy test, result unknown; N91.2 Amenorrhea, unspecified
CPT/HCPCS: 36415; 84702; 84703

== ENCOUNTER 2025-04-21 10:06 | Outpatient (RCR) | payer OTHER, SELFPAY | END 2025-04-30 17:05 | disposition home or self-care (01) | LOC: LAB 10:06 | PROVIDERS: PCP Nurse Practitioner Family; Visit Provider Obstetrics & Gynecology | DX: Z51.81 Encounter for therapeutic drug level monitoring (principal); Z79.01 Long term (current) use of anticoagulants; Z32.01 Encounter for pregnancy test, result positive | CPT/HCPCS: 36415; 84702 ==

== ENCOUNTER 2025-05-14 21:27 | Emergency (ER) | payer OTHER, SELFPAY ==
[2025-05-14 21:30] VITALS: BP 158/97; PULSE 113; TEMP 37; O2SAT 97; BMI 50.5
--- OUTSIDE RECORDS SUMMARY | 2025-05-14 21:32 | XMS_ITS | CCD ---
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 Name Role Phone MD Helio Florian Primary Care Provider MD Param Rao Admit Provider MD Param Rao Attending Provider MARKER, DR JONAS Admitting Unavailable MARKER, DR JONAS Attending Unavailable MARKER, DR JONAS Consulting Unavailable NADEREChris, DR HELIO Verma Primary Care Unavailable CHIQUI, [...] Unavailable Helio Florian MD Primary Care Provider [phone] Dante Valadez Attending Unavailab Dante Corral Admitting Unavailab Helio Cornejo Primary Care Unavailable RENEE DIEZ Attending Unavailable RENEE DIEZ Referring Unavailable BREANA POSADA Attending Unavailable Breana Posada NP Unavailable Medications Current Medications Medication Drug Class(es) [...] 03/23/2025 Discontinued cariprazine 3 mg oral capsule (12 sources) Atypical Antipsychotic Start: 09-15-2022 take 1 capsule by mouth once daily Cariprazine (Vraylar) 3 mg Capsule Active 3 MG PO Daily September 15, 2022 12:00am End: 04-19-2025 take 1 capsule by mouth once daily Cariprazine HCl (Vraylar) 1.5 MG capsule Take 1.5 mg by mouth Daily 04/19/2025 Discontinued (Therapy completed) End: 03-23-2025 take 1 capsule by mouth [...] hydrochloride 500 mg extended release oral tablet (8 sources) Biguanide Start: 03-23-2025 End: 04-22-2025 take 1 tablet by mouth every twenty-four hours at mealtime metFORMIN XR (Glucophage-XR) 500 MG 24 hr tablet Indications: Female infertility , PCOS (polycystic ovarian syndrome) Take 1 tablet (500 mg) by mouth in the evening. Take with meals Do not crush, chew, or split. 30 tablet 11 03/23/2025 Active 24 hr nicotine 0.583 mg/hr transdermal system (1 source) Cholinergic Nicotinic Agonist Start: 09-15-2022 Nicotine Active 1 EACH TRANSDERML Daily September 15, 2022 12:00am QUEtiapine 25 mg oral tablet (4 sources) Atypical Antipsychotic Start: 04-14-2025 take 1 tablet by mouth at bedtime QUEtiapine (SEROquel) 25 MG tablet Take 25 mg by mouth at bedtime 04/14/2025 Active sertraline 25 mg oral tablet (8 sources) Serotonin Reuptake Inhibitor Start: 03-18-2025 take [...] including migraine; Translations: [HEADACHE UNSPECIFIED] Onset: 09-30-2021 Menstrual disorders (2 sources) Amenorrhea; Translations: [Amenorrhea, unspecified] 04-19-2025 Chronic Mood disorders (2 sources) Bipolar disorder; Translations: [...] OBES D/T EXCESS FELICIANO] Onset: 10-04-2021 Chronic Other screening for suspected conditions (not mental disorders or infectious disease) (2 sources) Possible ; Translations: [Encounter for test, result unknown] 04-19-2025 Episodic Substance-related disorders (1 source) Nicotine dependence, cigarettes, [...] 10-05-2021 Episodic Other aftercare (1 source) Other meterman (current) drug therapy; Translations: [OTH BATCH BLENDER CURRENT DRUG THERAPY] Onset: 10-05-2021 Episodic Residual [...] Test Name Value Interpretation Reference Range Facility [facility] PREG QUANT HCGon 025 HCG QUANTITATIVE 275 mIU/mL [facility] Comment on above: 5-50 0.2-1 WEEK 50-500 1-2 WEEKS 100-5,000 2-3 WEEKS 500-10,000 3-4 WEEKS 1,000-50,000 4-5 WEEKS 10,000-100,000 5-6 WEEKS 15,000-200,000 6-8 WEEKS 10,000-100,000 2[facility] 025 HCG QUANTITATIVE 97 mIU/mL [facility] Comment on above: 5-50 0.2-1 WEEK 50-500 1-2 WEEKS 100-5,000 2-3 WEEKS 500-10,000 3-4 WEEKS 1,000-50,000 4-5 WEEKS 10,000-100,000 5-6 WEEKS 15,000-200,000 6-8 WEEKS 10,000-100,000 2[facility] test[facility] Ql (U)o n 04-19-2025 Interpretation and review of laboratory results Normal [facility] Preg Test, Ur Negative Negative [facility] ALL PROGESTERONEon PROGESTERONE 9.5 ng/mL . [facility] Comment on above: Follicular phase 0.1 - 0.9 Luteal phase 1.8 - 23.9 Ovulation phase 0.1 - 12.0 First trimester 11.0 - 44.3 Second trimester 25.4 - 83.3 Third trimester 58.7 - 214.0 Postmenopausal 0.0 - 0.1 Performed at: [address] [id number] Scribing Machine Operator: Ilya Manjarrez PhD, Phone: [phone] [facility] MLR HEMOGLOBIN A1Con 025 Glucose [Mass/Vol] 105 mg/dL [facility] HbA1c (Bld) [Mass fraction] 5.3 % 4.5 - 6.2 % [facility] Comment on above: ADA RECOMMENDED LIMI T 4.0 - 6.0 ADA THERAPEUTIC TARGET < 7.0 ACTION SUGGESTED > 7.0 [facility] US PELVIC COMPLETE W/ TVon 0 03-24-2025 [...] II, MD, PHD at 25-Mar-2025 07:52:19 AM [facility] Normal Not Available Comment on above: Order Comment: US PE LVIS-TRANSVAG IF INDICATED Patient's last menstrual period was 03/21/2025. Cholesterol [Mass/volume] in Serum or PlasmaOrdered By: Param Rao on 09-13-2022 Cholesterol [Mass/Vol] 141 mg/dL 140-200 [facility] Comment on above: Chol less than 200 m g/dl low riskChol 201-239 mg/dl borderline riskChol 240 mg/dl and greater high risk Cholesterol in LDL Calc [Mas s/Vol]Ordered By: Param Rao on 09-13-2022 Cholesterol in LDL [Mass/Vol] 94 mg/dL 0-100 [facility] Comment on above: LDL ATP III CLASSIFI CATIONLDL less than 100 mg/dL OptimalLDL 100-129 mg/dL Near or above optimalLDL 130-159 mg/dL Borderline highLDL 160-189 mg/dL HighLDL greater than 189 mg/dL Very high Cholesterol in VLDL Calc [Ma ss/Vol]Ordered By: Param Rao on 09-13-2022 Cholesterol in VLDL [Mass/Vol] 9 mg/dL [facility] No Panel InformationOrdered By: Param Rao on 09-13-2022 25-Hydroxy Vitamin D Total 11.9 ng/mL 30-100 [facility] Comment on above: VITAMIN D [...] Cholesterol in HDL [Mass/Vol] 38 mg/dL 35-85 [facility] Comment on above: HDL CHOL ATP-III CLA SSIFICATION Cardiovascular RiskHDL > or equal to 60 mg/dL LOWHDL < 40 mg/dL HIGH Serum or plasma total choles terol/high density lipoprotein (HDL) cholesterol mass ratOrdered By: Param Rao on 09-13-2022 Cholesterol.total/Chol esterol in HDL [Mass ratio] 3.7 {ratio} <5.0 [facility] TSH DL <= 0.005 mIU/L QnOrde red By: Param Rao on 09-13-2022 TSH Qn 0.81 m[IU]/L 0.45-5.33 [facility] Triglyceride [Mass/volume] i n Serum or PlasmaOrdered By: Param Rao on 09-13-2022 Triglyceride [Mass/Vol] 45 mg/dL 35-149 [facility] Comment on above: TRIG ATP III CLASSIF ICATIONTRIG less than 150 mg/dL NormalTRIG 150-199 mg/dL Borderline highTRIG 200-500 mg/dL High TRIG greater than 500 mg/dL Very highStandard traceable to the Center for Disease Conrtrol and Prevention (CDC) test method. ACETAMINOPHENon 09-12-2022 Acetaminophen [Mass/Vol] ug/mL Critically low 10.0-30.0 [facility] Comment on above: Performed By: #### S ALYC, ACET, CMP #### [facility] [address] [place] [address] Dr. Machelle Garcia CBC AUTO DIFFon 09-12-2022 BASO # 0.0 103/ul Normal 0.0-0.1 [facility] Comment on above: Performed By: #### C BC #### [facility] [address] [address] [address] Machelle Garcia Basophils/100 WBC (Bld) 0.4 % Normal 0.2-2.0 [facility] Comment on above: Performed By: #### C BC #### [facility] [address] [address] [address] Machelle Garcia EO # 0.1 103/ul Normal 0.0-0.7 [facility] Comment on above: Performed By: #### C BC #### [facility] [address] [place] [address] Dr. Machelle Garcia Eosinophils/100 WBC (Bld) 0.8 % Critically low 0.9-7.0 [facility] Comment on above: Performed By: #### C BC #### [facility] [address] [place] [address] Dr. Machelle Garcia Erythrocyte distribution width (RBC) [Ratio] 12.4 % Normal 11.0-15.0 [facility] Comment on above: Performed By: #### C BC #### [facility] [address] [place] [address] Dr. Machelle Garcia Hematocrit (Bld) [Volume fraction] 40.4 % Normal 36.0-48.0 [facility] Comment on above: Performed By: #### C BC #### [facility] [address] [place] [address] Dr. Machelle Garcia Hemoglobin (Bld) [Mass/Vol] 14.3 g/dL Normal 12.0-16.0 [facility] Comment on above: Performed By: #### C BC #### [facility] [address] [place] [address] Dr. Machelle Garcia IG # 0.02 10e3/ul Normal 0.00-0.03 [facility] Comment on above: Performed By: #### C BC #### [facility] [address] [place] [address] Dr. Machelle Garcia IG % 0.3 % Normal 0.0-0.5 [facility] Comment on above: Performed By: #### C BC #### [facility] [address] [place] [address] Dr. Machelle Garcia LYMPH # 1.0 103/ul Critically low 1.2-3.[address] [facility] Comment on above: Performed By: #### C BC #### [facility] [address] [place] [address] Dr. Machelle Garcia Lymphocytes/100 WBC (Bld) 14.1 % Critically low 20.5-60.0 [facility] Comment on above: Performed By: #### C BC #### [facility] [address] [place] [address] Dr. Machelle Garcia MANUAL DIFF REQ NO Normal [facility] Comment on above: Performed By: #### C BC #### [facility] [address] [place] [address] Dr. Machelle Garcia MCH (RBC) [Entitic mass] 29.7 pg Normal 26.7-34.0 [facility] Comment on above: Performed By: #### C BC #### [facility] [address] [address] [address] Machelle Garcia MCHC (RBC) [Mass/Vol] 35.4 g/dL Critically high 29.9-35.2 [facility] Comment on above: Performed By: #### C BC #### [facility] [address] [address] [address] Machelle Garcia MCV (RBC) [Entitic vol] 83.8 fL Normal 81.0-99.0 [facility] Comment on above: Performed By: #### C BC #### [facility] [address] [place] [address] Dr. Machelle Garcia MONO # 0.9 103/ul Critically high 0.3-0.8 [facility] Comment on above: Performed By: #### C BC #### [facility] [address] [place] [address] Dr. Machelle Garcia Monocytes/100 WBC (Bld) 12.6 % Critically high 1.7-12.0 [facility] Comment on above: Performed By: #### C BC #### [facility] [address] [place] [address] Dr. Machelle Garcia NEUT # 5.2 103/ul Normal 1.4-6.5 [facility] Comment on above: Performed By: #### C BC #### [facility] [address] [place] [address] Dr. Machelle Garcia Neutrophils/100 WBC (Bld) 71.8 % Normal 43.0-75.0 [facility] Comment on above: Performed By: #### C BC #### [facility] [address] [place] [address] Dr. Machelle Garcia Platelet mean volume (Bld) [Entitic vol] 9.9 fL Normal 9.5-13.5 [facility] Comment on above: Performed By: #### C BC #### [facility] [address] [address] [address] Machelle Garcia PLT 245 103/ul Normal 150-450 [facility] Comment on above: Performed By: #### C BC #### [facility] [address] [address] [address] Machelle Garcia RBC 4.82 106/ul Normal 4.20-5.40 [facility] Comment on above: Performed By: #### C BC #### [facility] [address] [address] [address] Machelle Garcia WBC 7.2 103/ul Normal 4.0-11.0 [facility] Comment on above: Performed By: #### C BC #### [facility] [address] [address] [address] Machelle Garcia DRUG SCREEN RAPID (URINE)on 09-12-2022 AMP Negative Normal NEGATIVE [facility] Comment on above: Performed By: #### D RUGRPD ####[facility] [address] [place], [place] [address]Dr. Machelle Garcia BAR Negative Normal NEGATIVE [facility] Comment on above: Performed By: #### D RUGRPD ####[facility] [address] [place], [place] [address]Dr. Machelle Garcia BUP Negative Normal NEGATIVE [facility] Comment on above: Performed By: #### D RUGRPD ####[facility] [address] [address]Dr. Machelle Garcia BZO Negative Normal NEGATIVE [facility] Comment on above: Performed By: #### D RUGRPD ####[facility] [address] [address]Dr. Machelle Garcia JOHN Negative Normal NEGATIVE [facility] Comment on above: Performed By: #### D RUGRPD ####[facility] [address] [place], [place] [address]Dr. Machelle Garcia CUT-OFFS SEE BELOW Normal [facility] Comment on above: Result Comment: AMP (Amphetamine): 500ng/mL, BAR (Barbituates): 200 ng/mL, BZO (Benzodiazepines): 150 ng/mL, BUP (Buprenorphine): 10 ng/mL, JOHN (Cocaine): 150 ng/mL, mAMP (Methamphetamine): 500 ng/mL, MTD (Methadone): 200 ng/mL, OPI (Opiates): 100 ng/mL, OXY (Oxycodone): 100 ng/mL, PCP (Phencyclidine): 25 ng/mL, PPX (Propoxyphene): 300 ng/mL, THC (Cannabinoids): 50 ng/mL, TCA (Trycyclic Antidepressants): 300 ng/mL Performed By: #### D RUGRPD ####[facility] [address] [place], [place] [address]Dr. [facility] DRUG CUT HEADER DRUG CLASS TEST SYSTEM CUT-OFF CONCENTRATIONS ARE FOLLOWS: Normal [facility] Comment on above: Performed By: #### D RUGRPD ####[facility] [address] [place], [place] [address]Dr. Janiekelsey Garcia mAMP Negative Normal NEGATIVE [facility] Comment on above: Performed By: #### D RUGRPD ####[facility] [address] [place], [place] [address]Dr. Machelle Garcia MTD Negative Normal NEGATIVE [facility] Comment on above: Performed By: #### D RUGRPD ####[facility] [address] [place], [place] [address]Dr. Janiekelsey Garcia OPI Negative Normal NEGATIVE [facility] Comment on above: Performed By: #### D RUGRPD ####[facility] [address] [place], [place] [address]Dr. Machelle Garcia OXY Negative Normal NEGATIVE [facility] Comment on above: Performed By: #### D RUGRPD ####[facility] [address] [place], [place] [address]Dr. Machelle Garcia PCP Negative Normal NEGATIVE [facility] Comment on above: Performed By: #### D RUGRPD ####[facility] [address] [place], [place] [address]Dr. Janiekelsey [facility] PPX Negative Normal NEGATIVE [facility] Comment on above: Performed By: #### D RUGRPD ####[facility] [address] [address]Dr. Machelle Garcia TCA Negative Normal NEGATIVE [facility] Comment on above: Performed By: #### D RUGRPD ####[facility] [address] [address]DrMarilee Garcia THC Positive Abnormal NEGATIVE [facility] Comment on above: Performed By: #### D RUGRPD ####[facility] [address] [address]Dr. Machelle Garcia ER URINE PROFILEon 2 Bilirubin Ql (U) Negative Normal NEGATIVE [facility] Comment on above: Performed By: #### P REGU, ERUR #### [facility] [address] [address] [address] Machelle Garcia Clarity (U) CLEAR Normal CLEAR [facility] Comment on above: Performed By: #### P REGU, ERUR #### [facility] [address] [place] [address] Dr. Machelle Garcia Color (U) LT. YELLOW Normal YELLOW [facility] Comment on above: Performed By: #### P REGU, ERUR #### [facility] [address] [address] [address] Machelle TAYLOR A micrscopic examination will be performed if indicated. Normal [facility] Comment on above: Performed By: #### P REGU, ERUR #### [facility] [address] [address] [address] Machelle Garcia Glucose Ql (U) Negative Normal NEGATIVE [facility] Comment on above: Performed By: #### P REGU, ERUR #### [facility] [address] [address] [address] Machelle Garcia Hemoglobin Ql (U) Negative Normal NEGATIVE [facility] Comment on above: Performed By: #### P REGU, ERUR #### [facility] [address] [address] [address] Machelle Garcia Ketones Ql (U) TRACE Abnormal NEGATIVE [facility] Comment on above: Performed By: #### P REGU, ERUR #### [facility] [address] [place] [address] Dr. Machelle Garcia LEUKOCYTES Negative Normal NEGATIVE [facility] Comment on above: Performed By: #### P REGU, ERUR #### [facility] [address] [place] [address] Dr. Machelle Garcia Nitrite Ql (U) Negative Normal NEGATIVE [facility] Comment on above: Performed By: #### P REGU, ERUR #### [facility] [address] [address] [address] Machelle Garcia pH (U) 5.5 [pH] Normal 5-9 [facility] Comment on above: Performed By: #### P REGU, ERUR #### [facility] [address] [place] [address] Dr. Machelle Garcia SPEC GRAVITY 1.020 Normal 1.005-<=1.02 5 [facility] Comment on above: Performed By: #### P REGU, ERUR #### [facility] [address] [place] [address] Dr. Machelle Garcia UA PROTEIN Negative Normal NEGATIVE/ TRACE [facility] Comment on above: Performed By: #### P REGU, ERUR #### [facility] [address] [place] [address] Dr. Machelle Garcia UR MICRO IND NOT INDICATED Normal [facility] Comment on above: Performed By: #### P REGU, ERUR #### [facility] [address] [place] [address] Dr. Machelle Garcia Urobilinogen Qn (U) 0.2 {Jeanine'U}/dL Normal 0.2 - 1. 0 [facility] Comment on above: Performed By: #### P REGU, ERUR #### [facility] [address] [place] [address] Dr. Machelle Garcia ETHANOL (BLD ALC)on 09-12-20 ALC NOTE NOTE: 80 mg/dl is th e legal limit for a blood alcohol level Normal [facility] Comment on above: Performed By: #### E TH ####[facility] [address] [id number]. Machelle Garcia Ethanol [Mass/Vol] mg/dL Normal [facility] Comment on above: Performed By: #### E TH ####[facility] [address] [place], [place] [address]JdDr. Machelle Garcia URon 09-12-2022 , QUAL Negative Normal NEGATIVE [facility] Comment on above: Performed By: #### P REGU, ERUR #### [facility] [address] [address] [address] Machelle Garcia PROF 14(COMP METB)on 022 Albumin [Mass/Vol] 3.9 g/dL Normal 3.4-5.0 [facility] Comment on above: Performed By: #### S ALYC, ACET, CMP #### [facility] [address] [address] [address] Machelle Garcia Albumin/Globulin [Mass ratio] 1.1 {ratio} Normal [facility] Comment on above: Performed By: #### S ALYC, ACET, CMP #### [facility] [address] [address] [address] Machelle Garcia ALP [Catalytic activity/Vol] 89 U/L Normal 46-116 [facility] Comment on above: Performed By: #### S ALYC, ACET, CMP #### [facility] [address] [address] [address] Machelle Garcia ALT [Catalytic activity/Vol] 19 U/L Normal 14-59 [facility] Comment on above: Performed By: #### S ALYC, ACET, CMP #### [facility] [address] [address] [address] Machelle Garcia Anion gap [Moles/Vol] 12.1 mmol/L Normal [facility] Comment on above: Performed By: #### S ALYC, ACET, CMP #### [facility] [address] [address] [address] Machelle Garcia AST [Catalytic activity/Vol] 16 U/L Normal 15-37 [facility] Comment on above: Performed By: #### S ALYC, ACET, CMP #### [facility] [address] [address] [address] Machelle Garcia Bilirubin [Mass/Vol] 0.4 mg/dL Normal 0.2-1.0 [facility] Comment on above: Performed By: #### S ALYC, ACET, CMP #### [facility] [address] [address] [address] Machelle Garcia Calcium [Mass/Vol] 9.0 mg/dL Normal 8.5-10.1 [facility] Comment on above: Performed By: #### S ALYC, ACET, CMP #### [facility] [address] [address] [address] Machelle Garcia Chloride [Moles/Vol] 104 mmol/L Normal 98-107 [facility] Comment on above: Performed By: #### S ALYC, ACET, CMP #### [facility] [address] [place] [address] Dr. Machelle Garcia CO2 [Moles/Vol] 25.5 mmol/L Normal 21.0-32.0 [facility] Comment on above: Performed By: #### S ALYC, ACET, CMP #### [facility] [address] [address] [address] Machelle Garcia Creatinine [Mass/Vol] 0.86 mg/dL Normal 0.55-1.02 [facility] Comment on above: Performed By: #### S ALYC, ACET, CMP #### [facility] [address] [address] [address] Machelle Garcia EGFR-AF AFGHAN >60 Normal >=60 [facility] Comment on above: Performed By: #### S ALYC, ACET, CMP #### [facility] [address] [address] [address] Machelle Garcia EGFR-NON AF AFGHAN >60 Normal >=60 [facility] Comment on above: Performed By: #### S ALYC, ACET, CMP #### [facility] [address] [place] [address] Dr. Machelle Garcia Globulin (S) [Mass/Vol] 3.4 g/dL Normal [facility] Comment on above: Performed By: #### S ALYC, ACET, CMP #### [facility] [address] [address] [address] Machelle Garcia Glucose [Mass/Vol] 102 mg/dL Normal 74-106 [facility] Comment on above: Performed By: #### S ALYC, ACET, CMP #### [facility] [address] [address] [address] Machelle Garcia Potassium [Moles/Vol] 3.6 mmol/L Normal 3.5-5.1 [facility] Comment on above: Performed By: #### S ALYC, ACET, CMP #### [facility] [address] [address] [address] Machelle Garcia Protein [Mass/Vol] 7.3 g/dL Normal 6.4-8.2 [facility] Comment on above: Performed By: #### S ALYC ACET, CMP #### [facility] [address] [address] [address] Machelle Garcia Sodium [Moles/Vol] 138 mmol/L Normal 136-145 [facility] Comment on above: Performed By: #### S ALYC ACET, CMP #### [facility] [address] [address] [address] Machelle Garcia Urea nitrogen [Mass/Vol] 10.0 mg/dL Normal 7.0-18.0 [facility] Comment on above: Performed By: #### S ALYC, ACET, CMP #### [facility] [address] [address] [address] Machelle Garcia Urea nitrogen/Creatinine [Mass ratio] 11.6 mg/mg Normal [facility] Comment on above: Performed By: #### S ALYC, ACET, CMP #### [facility] [address] [place] [address] Dr. Machelle Garcia SALICYLATEon 09-12-2022 SALICYLATE <2.8 Normal <=19.9 [facility] Comment on above: Performed By: #### S ALYC, ACET, CMP #### [facility] [address] [address] [address] Machelle Garcia XR CHEST 1 Von [...] ROSEANNE GRADY Date: 2021-10-03 20:52 Normal [facility] CBC AUTO DIFFon 09-30-2021 BASO # 0.0 103/ul Normal 0.0-0.1 [facility] Comment on above: Performed By: #### C BC #### [facility] [address] [place] [address] Dr. Machelle Garcia Basophils/100 WBC (Bld) 0.4 % Normal 0.2-2.0 [facility] Comment on above: Performed By: #### C BC #### [facility] [address] [place] [address] Dr. Machelle Garcia EO # 0.1 103/ul Normal 0.0-0.7 [facility] Comment on above: Performed By: #### C BC #### [facility] [address] [place] [address] Dr. Machelle Garcia Eosinophils/100 WBC (Bld) 1.3 % Normal 0.9-7.0 [facility] Comment on above: Performed By: #### C BC #### [facility] [address] [place] [address] Dr. Machelle Garcia Erythrocyte distribution width (RBC) [Ratio] 12.8 % Normal 11.0-15.0 [facility] Comment on above: Performed By: #### C BC #### [facility] [address] [place] [address] Dr. Machelle Garcia Hematocrit (Bld) [Volume fraction] 40.7 % Normal 36.0-48.0 [facility] Comment on above: Performed By: #### C BC #### [facility] [address] [address] [address] Machelle Garcia Hemoglobin (Bld) [Mass/Vol] 13.7 g/dL Normal 12.0-16.0 [facility] Comment on above: Performed By: #### C BC #### [facility] [address] [address] [address] Machelle Garcia IG # 0.03 10e3/ul Normal 0.00-0.03 [facility] Comment on above: Performed By: #### C BC #### [facility] [address] [place] [address] Dr. Machelle Garcia IG % 0.4 % Normal 0.0-0.5 [facility] Comment on above: Performed By: #### C BC #### [facility] [address] [place] [address] Dr. Machelle Garcia LYMPH # 0.6 103/ul Critically low 1.2-3.8 [facility] Comment on above: Performed By: #### C BC #### [facility] [address] [place] [address] Dr. Machelle Garcia Lymphocytes/100 WBC (Bld) 8.8 % Critically low 20.5-60.0 [facility] Comment on above: Performed By: #### C BC #### [facility] [address] [place] [address] Dr. Machelle Garcia MANUAL DIFF REQ NO Normal [facility] Comment on above: Performed By: #### C BC #### [facility] [address] [place] [address] Dr. Machelle Garcia MCH (RBC) [Entitic mass] 29.0 pg Normal 26.7-34.0 [facility] Comment on above: Performed By: #### C BC #### [facility] [address] [place] [address] Dr. Machelle Garcia MCHC (RBC) [Mass/Vol] 33.7 g/dL Normal 29.9-35.2 [facility] Comment on above: Performed By: #### C BC #### [facility] [address] [place] [address] Dr. Machelle Garcia MCV (RBC) [Entitic vol] 86.2 fL Normal 81.0-99.0 [facility] Comment on above: Performed By: #### C BC #### [facility] [address] [place] [address] Dr. Machelle Garcia MONO # 1.0 103/ul Critically high 0.3-0.8 [facility] Comment on above: Performed By: #### C BC #### [facility] [address] [address] [address] Machelle Garcia Monocytes/100 WBC (Bld) 14.4 % Critically high 1.7-12.0 [facility] Comment on above: Performed By: #### C BC #### [facility] [address] [place] [address] Dr. Machelle Garcia NEUT # 5.1 103/ul Normal 1.4-6.5 [facility] Comment on above: Performed By: #### C BC #### [facility] [address] [place] [address] Dr. Machelle Garcia Neutrophils/100 WBC (Bld) 74.7 % Normal 43.0-75.0 [facility] Comment on above: Performed By: #### C BC #### [facility] [address] [place] [address] Dr. Machelle Garcia Platelet mean volume (Bld) [Entitic vol] 9.7 fL Normal 9.5-13.5 [facility] Comment on above: Performed By: #### C BC #### [facility] [address] [place] [address] Dr. Machelle Garcia PLT 211 103/ul Normal 150-450 [facility] Comment on above: Performed By: #### C BC #### [facility] [address] [place] [address] Dr. Machelle Garcia RBC 4.72 106/ul Normal 4.20-5.40 [facility] Comment on above: Performed By: #### C BC #### [facility] [address] [place] [address] Dr. Machelle Garcia WBC 6.8 103/ul Normal 4.0-11.0 [facility] Comment on above: Performed By: #### C BC #### [facility] [address] [place] [address] Dr. Machelle Garcia Covid-19 PCR (CVDTB)on 09-02 SARS-CoV-2 (COVID-19) RNA BERNARDINO+probe Ql (Unsp spec) Detected Critically abnormal NOT DETECTED [facility] Comment on above: Result Comment: This test is not yet approved or cleared by the [place] FDA. When there are no FDA-approved or cleared tests available, and other criteria are met, FDA can make tests available under an emergency access mechanism called an Emergency Use Authorization (EUA). The EUA for this test is supported by the [place] of Health and Human Service's declaration that [...] used). Performed By: #### C VDTBH #### [facility] [address] [place] [address] Dr. Machelle Garcia D-DIMERon 09-30-2021 D-DIMER 0.37 mg/L FEU Normal 0.19-0.[address] [facility] Comment on above: Performed By: #### D DIM #### [facility] [address] [place] [address] Dr. Machelle Garcia D-DIMER COMMENTS SEE BELOW Normal [facility] Comment on above: Result Comment: Incr [...] hospitalization. Performed By: #### D DIM #### [facility] [address] [address] [address] Machelle Garcia PROF 14(COMP METB)on 021 Albumin [Mass/Vol] 3.5 g/dL Normal 3.5-5.0 [facility] Comment on above: Performed By: #### C MP ####[facility] [address] [address]Dr. Machelle Garcia Albumin/Globulin [Mass ratio] 0.9 {ratio} Normal [facility] Comment on above: Performed By: #### C MP ####[facility] [address] [address]Dr. Machelle Garcia ALP [Catalytic activity/Vol] 81 U/L Normal 38-126 [facility] Comment on above: Performed By: #### C MP ####[facility] [address] [address]Dr. Machelle Garcia ALT [Catalytic activity/Vol] 44 U/L Normal 9-52 [facility] Comment on above: Performed By: #### C MP ####[facility] [address] [address]Dr. Machelle Garcia Anion gap [Moles/Vol] 12.2 mmol/L Normal [facility] Comment on above: Performed By: #### C MP ####[facility] [address] [address]Dr. Machelle Garcia AST [Catalytic activity/Vol] 17 U/L Normal 14-36 [facility] Comment on above: Performed By: #### C MP ####[facility] [address] [address]Dr. Machelle Garcia Bilirubin [Mass/Vol] 0.3 mg/dL Normal 0.2-1.3 [facility] Comment on above: Performed By: #### C MP ####[facility] [address] [address]Dr. Machelle Garcia Calcium [Mass/Vol] 8.7 mg/dL Normal 8.4-10.2 [facility] Comment on above: Performed By: #### C MP ####[facility] [address] [id number]. Machelle Garcia Chloride [Moles/Vol] 103 mmol/L Normal 98-107 [facility] Comment on above: Performed By: #### C MP ####[facility] [address] [id number]. Machelle Garcia CO2 [Moles/Vol] 25.3 mmol/L Normal 22.0-30.0 [facility] Comment on above: Performed By: #### C MP ####[facility] [address] [address]Dr. Machelle Garcia Creatinine [Mass/Vol] 0.87 mg/dL Normal 0.52-1.04 [facility] Comment on above: Performed By: #### C MP ####[facility] [address] [address]Dr. Machelle Garcia EGFR-AF AFGHAN >60 Normal >=60 [facility] Comment on above: Performed By: #### C MP ####[facility] [address] [address]Dr. Machelle Garcia EGFR-NON AF AFGHAN >60 Normal >=60 [facility] Comment on above: Performed By: #### C MP ####[facility] [address] [address]Dr. Machelle Garcia Globulin (S) [Mass/Vol] 3.8 g/dL Normal [facility] Comment on above: Performed By: #### C MP ####[facility] [address] [address]Dr. Machelle Garcia Glucose [Mass/Vol] 99 mg/dL Normal 74-106 [facility] Comment on above: Performed By: #### C MP ####[facility] [address] [address]Dr. Machelle Garcia Potassium [Moles/Vol] 3.5 mmol/L Normal 3.4-5.0 [facility] Comment on above: Performed By: #### C MP ####[facility] [address] [place], [place] [address]Dr. Machelle Garcia Protein [Mass/Vol] 7.3 g/dL Normal 6.1-8.2 [facility] Comment on above: Performed By: #### C MP ####[facility] [address] [id number]. Machelle Garcia Sodium [Moles/Vol] 137 mmol/L Normal 137-145 [facility] Comment on above: Performed By: #### C MP ####[facility] [address] [id number]. Machelle Garcia Urea nitrogen [Mass/Vol] 11.0 mg/dL Normal 6.4-19.3 [facility] Comment on above: Performed By: #### C MP ####[facility] [address] [address]Dr. Machelle Garcia Urea nitrogen/Creatinine [Mass ratio] 12.6 mg/mg Normal [facility] Comment on above: Performed By: #### C MP ####[facility] [address] [address]Dr. Machelle Garcia Cytology Cervical or vaginal smear or scraping studyOrdered By: Beata Greenberg on 12-09-2020 [facility] Vital Signs Date Time Vital Sign Value Performing Clinician Facility 04-19-2025 09:36-0400 Body mass index (BMI) [Ratio] 51.71 kg/m2 Monty Zinioakhil Ripstone Work Phone: [facility] 04-19-2025 09:36-0400 Body temperature 98.71 [degF] Monty Caakhil Ripstone Work Phone: [facility] 04-19-2025 09:36-0400 Body weight 116.12 kg Monty Zinioakhil Ripstone Work Phone: [facility] 04-19-2025 09:36-0400 Diastolic blood pressure 72 mm[Hg] Monty Lannyakhil Ripstone Work Phone: [facility] 04-19-2025 09:36-0400 Heart rate 111 /min Monty Lannyakhil Ripstone Work Phone: [facility] 04-19-2025 09:36-0400 SaO2% (BldA) [Mass fraction] 99 % Monty Lemons DO Work Phone: [facility] 04-19-2025 09:36-0400 Systolic blood pressure 122 mm[Hg] Monty Lemons DO Work Phone: [facility] 03-23-2025 09:02-0400 Body height 149.9 cm Renee Chary DO Work Phone: [facility] 03-23-2025 09:02-0400 Body mass index (BMI) [Ratio] 51.71 kg/m2 Renee Chary DO Work Phone: [facility] 03-23-2025 09:02-0400 Body weight 116.12 kg Renee Chary DO Work Phone: [facility] 03-23-2025 09:02-0400 Diastolic blood pressure 70 mm[Hg] Renee Chary DO Work Phone: [facility] 03-23-2025 09:02-0400 Systolic blood pressure 120 mm[Hg] Renee Chary DO Work Phone: [facility] 09-09-2024 12:49-0500 Body mass index (BMI) [Ratio] 63.11 kg/m2 Breana Posada SHAKE FEEDER Work Phone: [facility] 09-09-2024 12:49-0500 Body temperature 98.1 [degF] Breana Posada SHAKE FEEDER Work Phone: [facility] 09-09-2024 12:49-0500 Body weight 105.9 kg Breana Posada SHAKE [employer]EDER Work Phone: [facility] 09-09-2024 12:49-0500 Diastolic blood pressure 80 mm[Hg] Breana Posada SHAKE FEEDER Work Phone: [facility] 09-09-2024 12:49-0500 Heart rate 103 /min Breana Posada SHAKE FEEDER Work Phone: [facility] 09-09-2024 12:49-0500 SaO2% (BldA) [Mass fraction] 98 % Breana Posada SHAKE FEEDER Work Phone: [facility] 09-09-2024 12:49-0500 Systolic blood pressure 100 mm[Hg] Breana Posada SHAKE FEEDER Work Phone: [facility] 09-15-2022 07:26-0500 Body temperature 98.4 [degF] MD Helio Florian Work Phone: [facility] 09-15-2022 07:26-0500 Diastolic blood pressure 70 mm[Hg] MD Helio Florian Work Phone: [facility] 09-15-2022 07:26-0500 Heart rate 92 /min MD Helio Florian Work Phone: [facility] 09-15-2022 07:26-0500 Respiratory rate 16 /min MD Helio Florian Work Phone: [facility] 09-15-2022 07:26-0500 SaO2% (BldA) [Mass fraction] 97 % MD Helio Florian Work Phone: [facility] 09-15-2022 07:26-0500 Systolic blood pressure 117 mm[Hg] MD Helio Florian Work Phone: [facility] 09-13-2022 00:57-0500 Body height 149.86 cm MD Helio Florian Work Phone: [facility] 09-13-2022 00:57-0500 Body weight 90.71 kg MD Helio Florian Work Phone: [facility] Encounters Encounter Date Encounter Type Care Provider Facility Start: 04-23-2025 End: 04-23-2025 Clinisync Result Encounter Renee Chary DO Work Phone: [facility] Unsolicited Start: 04-23-2025 End: 04-23-2025 Clinisync Result Encounter Renee Chary DO Work Phone: [facility] External Department Unsolicited Start: 04-21-2025 End: 04-21-2025 Clinisync Result Encounter Renee Chary DO Work Phone: [facility] Unsolicited Start: 04-21-2025 End: 04-21-2025 Clinisync Result Encounter Renee Chary DO Work Phone: [facility] Unsolicited Start: 04-19-2025 End: 04-19-2025 ambulatory RENEE CHARY Not Available Start: 04-19-2025 End: 04-19-2025 Office outpatient visit 15 minutes Monty Lemons DO Work Phone: [facility] Comment on above: Possible ( Primary Dx); Amenorrhea Start: 04-14-2025 ambulatory Dante Esparza acility:[facility] Start: 04-10-2025 End: 04-11-2025 Clinisync Result [...] Office outpatient visit 25 minutes Breana Posada SHAKE FEEDER Work Phone: [facility] Comment on above: Acute cough (Primary Dx); Bronchitis Start: 09-09-2024 End: 09-09-2024 ambulatory BREANA POSADA Not Available Start: 09-13-2022 End: 09-15-2022 Evaluation and management of inpatient MD Helio Florian Work Phone: [facility] Start: 09-12-2022 End: 09-13-2022 ambulatory TAL IQBAL Facility:[facility] Start: 10-19-2021 End: 10-19-[address] HELIO FLORIAN Facility:[facility] Start: 10-03-2021 End: 10-03-[address] HELIO FLORIAN Facility:[facility] Start: 09-30-2021 End: 09-30-[address] SUMI DURON Facility:[facility] Procedures Date Procedure Procedure Detail Performing Clinician Start: 04-23-2025 [facility] PREG QUANT HCG Core y Chary DO Work Phone: Start: 04-21-2025 [facility] PREG QUANT HCG Core y Chary DO Work Phone: Start: 04-19-2025 Urine test visual color cmprsn meths Monty Lemons DO Work Phone: Start: 04-10-2025 ALL PROGESTERONE Renee Chary DO Work Phone: Start: 03-24-2025 MLR HEMOGLOBIN A1C Core y Chary DO Work Phone: Start: 12-09-2020 Cytp cerv/vag auto t hin layer prep mnl screen Albert Barnard Plan of Treatment Date Care Activity Detail Author Start: 07-27-2025 End: 07-27-2025 Patient encounter procedure [facility] Start: 06-01-2025 Influenza vaccination [facility] Start: 05-15-2025 End: 05-15-2025 ambulatory 05/15/2025 10:00 AM EDT Initial [facility] [address] [place] [address] [facility] Start: 05-15-2025 End: 05-15-2025 Professional / ancillary services management 05/15/2025 9:30 AM EDT Ancillary Procedure [facility] [address] [place] [address] [facility] Start: 03-24-2025 End: 03-24-2025 Professional / ancillary services management 03/24/2025 10:00 AM EDT Ancillary Procedure [facility] [address] [place] [address] [facility] Start: 03-23-2025 End: 03-23-2026 Antimullerian hormone (AMH) Antimullerian hormone (AMH) Lab Routine Female infertility PCOS (polycystic ovarian syndrome) Expected: 03/23/2025, Expires: 03/23/2026 [facility] Comment on above: Expected: 03/23/2025 , [...] (polycystic ovarian syndrome) Expected: 03/23/2025, Expires: 03/23/2026 [facility] Comment on above: Expected: 03/23/2025 , Expires: 03/23/2026 Start: 03-23-2025 End: 03-23-2026 DHEA-sulfate DHEA-sulfate Lab Routine Female infertility PCOS (polycystic ovarian syndrome) Expected: 03/23/2025 (Approximate), Expires: 03/23/2026 [facility] Comment on above: Expected: 03/23/2025 (Approximate), Expires: 03/23/2026 Start: 03-23-2025 End: 03-23-2026 Follicle stimulating hormone Follicle stimulating hormone Lab Routine Female infertility PCOS (polycystic ovarian syndrome) Expected: 03/23/2025 (Approximate), Expires: 03/23/2026 [facility] Comment on above: Expected: 03/23/2025 (Approximate), Expires: 03/23/2026 Start: 03-23-2025 End: 03-23-2026 hCG, quantitative, hCG, quantitative, Lab Routine Female infertility PCOS (polycystic ovarian syndrome) Expected: 03/23/2025 (Approximate), Expires: 03/23/2026 [facility] Work Phone: Comment on above: Expected: 03/23/2025 (Approximate), Expires: 03/23/2026 Start: 03-23-2025 End: 03-23-2026 Hemoglobin A1c/Hemoglobin.total in Blood Hemoglobin A1c Lab Routine Female infertility PCOS (polycystic ovarian syndrome) Expected: 03/23/2025 (Approximate), Expires: 03/23/2026 [facility] Comment on above: Expected: 03/23/2025 (Approximate), Expires: 03/23/2026 Start: 03-23-2025 End: 03-23-2026 Luteinizing hormone Luteinizing hormone Lab Routine Female infertility PCOS (polycystic ovarian syndrome) Expected: 03/23/2025 (Approximate), Expires: 03/23/2026 [facility] Comment on above: Expected: 03/23/2025 (Approximate), Expires: 03/23/2026 Start: 03-23-2025 End: 03-23-2026 Thyrotropin [Units/volume] in Serum or Plasma TSH Lab Routine Female infertility PCOS (polycystic ovarian syndrome) Expected: 03/23/2025 (Approximate), Expires: 03/23/2026 [facility] Comment on above: Expected: 03/23/2025 (Approximate), Expires: 03/23/2026 Start: 03-23-2025 End: 03-23-2026 Thyroxine (T4) free [Mass/volume] in Serum or Plasma T4, free Lab Routine Female infertility PCOS (polycystic ovarian syndrome) Expected: 03/23/2025 (Approximate), Expires: 03/23/2026 [facility] Comment on above: Expected: 03/23/2025 (Approximate), Expires: 03/23/2026 Start: 03-23-2025 End: 03-23-2026 US Pelvis US Pelvis w/ TV Imaging Routine Female infertility PCOS (polycystic ovarian syndrome) Expected: 03/23/2025, Expires: 03/23/2026 [facility] Comment on above: Expected: 03/23/2025 , Expires: 03/23/2026 Start: 06-01-2024 Influenza vaccination Influenza Vacc ine (#1) [facility] Start: 09-15-2022 [facility] Start: 09-13-2022 Hospital admission [facility] hCG, quantitative, hCG, quantitative, Lab Routine Possible Amenorrhea Ordered: 04/19/2025 [facility] Comment on above: Ordered: 04/19/2025 hCG, serum, qualitative hCG, ser um, qualitative Lab Routine Possible Amenorrhea Ordered: 04/19/2025 [facility] Work Phone: Comment on above: Ordered: 04/19/2025 Patient Education Bipolar Disord er (DC) [facility] [place] Instructions [facility] Work Phone: Patient referral [facility] Work Phone: Progesterone Progesterone Lab Routine Female infertility PCOS (polycystic ovarian syndrome) Ordered: 03/23/2025 [facility] Comment on above: Ordered: 03/23/2025 Immunizations Immunization Date Immunization Notes Care Provider Alexus stratton 07-27-2014 influenza virus vacc ine, unspecified formulation Breana Posada NP Work Phone: [facility] Payers Date Payer Category Payer Medicaid (Managed Care) [facility] MEDICAID [id number] 2023 Self-pay [phone] [id number] 2017 Medicaid [place]ICAID [place] [id number] 2002 Unknown [id number] 593 2002 Unknown [id number] 593 2002 Unknown [id number] 593 2002 Unknown [id number] 593 2002 Unknown [id number]. 1259 2002 Unknown [id number]. 1259 2002 Unknown [id number]. 1259 2002 Unknown [id number]. 1259 1957 Medicaid [id number] Unknown [id number] 531 Social History Date Type Detail Facility Start: 09-13-2022 [facility] Start: 2000 Sex Assigned At Female F [facility] Start: 04-05-2023 Tobacco smoking stat [facility] Never smoked tobacco [facility] Start: 04-05-2023 Tobacco use and exposure Smokeless tobacco non-user [facility] Start: 04-05-2023 End: 04-19-2025 Alcoholic beverage intake Lifetime non-drinker (finding) [facility] Start: 04-05-2023 End: 04-19-2025 History of Social function [facility] Start: 04-05-2023 End: 04-19-2025 Tobacco use panel [facility] Start: 2000 Sex assigned at Not on file [facility] Goals Date Patient Goal Desired Activity /State Functional Status Date Assessment Result Facility 09-15-2022 Functional status Patient at Baseline [facility] Work Phone: Mental Status Date Assessment Result Facility 09-15-2022 Cognitive function Cognitive Sta tus Patient at Baseline [facility] Work Phone: Clinical Notes 09-13-2022 to 04-19-2025 Betsy Cloud, RADHA - 04/19/2025 9:30 AM Priscilla Sutton LPN - 03/23/2025 8:40 AM Patricia Posada NP - 09/09/2024 12:50 PM EST Note Date & Type Note Facility 04-19-2025 History of Presen t illness Narrative HPI: Historian of HPI: patient and significant other Alexia Tristan is a 24 y.o. female who presents today to the Urgent Care with the following complaints and denials which have been present for 2 day(s) pt wants a test done and blood work ordered for possible chance of . Pt states she took 3 at home tests which came back positive. Pt admits to taking fertility medications. Pt was able to give a urine sample at the time of visit. C/O Denies Symptom Comments [x] [] [x] [] Nausea [x] [] Fatigued [] [x] fever [] [x] Abd pain [] [x] hematuria [] [x] Urinary urgency [] [x] Urinary frequency [] [x] Urinary incontinence Additional Comments: Want blood labs sent to [facility] ROS: A complete system ROS was performed and negative aside from the pertinent positives noted in the HPI and PE. Vitals: 04/19/25 0936 BP: 122/72 Pulse: (!) 111 Temp: 98.7 F SpO2: 99% Physical Exam Constitutional: Appearance: Normal appearance. Neurological: Mental Status: She is alert. Office Visit on 04/19/2025 Component Date Value Ref Range Status Preg Test, Ur 04/19/2025 Negative Negative Final Diagnosis Plan 1. Possible POCT , urine manually resulted hCG, serum, qualitative hCG, quantitative, 2. Amenorrhea hCG, serum, qualitative hCG, quantitative, Follow-Up: PRN/gynecology if applicable. documented in this encounter [facility] 03-23-2025 History of Presen t illness Narrative [...] nursing note reviewed. Exam conducted with a wet plant operator present. Vitals: Estimated body mass index is [...] Renee Diez DO documented in this encounter [facility] 09-09-2024 History of Presen t illness Narrative Images from the original note were not included. [address] , [address] [facility], [address] P: [phone] F: [phone] HPI Historian of HPI: patient Alexia Tristan [...] Left Turbinates: Enlarged and swollen. Mouth/Throat: Lips: [place]. Mouth: Mucous membranes are moist. Pharynx: Oropharynx [...] capsule; Refill: 0 documented in this encounter [facility] 09-15-2022 Discharge summary Note Date/Time September 15, 2022 10:25am [facility] [address] [place] [address] Discharge Summary Signed Patient: Kay Busch MR#: [id number] : 2000 Acct:[id number] Age/Sex: 22 / F Adm Date: 2 Loc: Room: 9V5312-[address]: Param Rao MD Copies to: [...] No activity restrictions. Instructions: Bipolar Disorder (DC), [facility] [place] Instructions Stand Alone Forms: Work/School Release Form Prescriptions: New bupropion HCl 150 mg Tablet Extended Release 24 Hr 150 mg PO QAM 30 Days Qty: 30 0RF Vraylar 3 mg Capsule 3 mg PO DAILY 30 Days Qty: 30 0RF nicotine 14 mg/24 hr Patch 24 Hour 1 ea transdermal DAILY Qty: 30 0RF Follow Up: [facility] [Outside] [facility] [Outside] ( stakeholder manager: (Insert date/time here) Therapy:? (insert date/time [...] signed by Param Rao MD> 09/15/22 1037 [facility] Work Phone: 1(685) 258-264112-15-2022 Progress note Author Param Rao [facility] September 14, 2022 12:20pm Note Date/Time September 14, 2022 12:20pm [facility] [address] [place] [address] Psychiatry Progress Note Signed Patient: Kay Busch MR#: [id number] : 2000 Acct:[id number] Age/Sex: 22 / F Adm Date: 2 Loc: Room: 8H1535-4 Type : ADM IN Attending Dr: Param [...] explained Documented By: Param Rao MD 09/14/22 1212 Signed By: <Electronically signed by Param Rao MD> 09/14/22 3748 [facility] Work Phone: 1(936) 330-849712-14-2022 History and physical note Author Param Rao [facility] September 13, 2022 12:48pm Note Date/Time September 13, 2022 12:48pm [facility] [address] [place] [address] Psychiatry H&P Signed Patient: Kay Busch MR#: [id number] : 2000 Acct:[id number] Age/Sex: 22 / F Adm Date: 2 Loc: Room: [address] [place] [address] Type: ADM IN Attending Dr: Param Rao [...] <Electronically signed by Param Rao MD> 09/13/22 1246 [facility] Work Phone: Evaluation note* Diagnosis Onset Date Resolution Status Bipolar disorder acute [facility] Work Phone: Evaluation note* Diagnosis Acute cough- Primary Bronchitis Bronchitis, not specified as acute or chronic [facility] Diagnosis Female infertility Female infertility of unspecified origin PCOS (polycystic ovarian syndrome) Polycystic ovaries [facility]* Diagnosis Possible - Primary Amenorrhea Absence of menstruation [facility] Additional Instructions Regular diet. No activity restrictions.[facility] Work Phone: Chief Complaint and Reason for Visit Chief Complaint Bipolar Disorder Reason for Visit Bipolar disorder Advance Directives Advance Directive Response Recorded Date/ Time Advance [...] Helio Florian MD Primary Care Provider Active Horse Riding Coach Or Instructor Relationship Specialty Start Date End Date Helio Florian MD [address] [place] [address] PCP - General Family Medicine 04/05/23 Horse Riding Coach Or Instructor Relationship Specialty Start Date End Date Helio Florian MD [address] [place] [address] PCP - General Family Medicine 04/05/23 Horse Riding Coach Or Instructor Relationship Specialty Start Date End Date Helio Florian MD [address] [place] [address] PCP - General Family Medicine 04/05/23 Horse Riding Coach Or Instructor Relationship Specialty Start Date End Date Helio Florian MD [address] [place] [address] PCP - General Family Medicine 04/05/23 Horse Riding Coach Or Instructor Relationship Specialty Start Date End Date Helio Florian MD [address] [place] [address] PCP - General Family Medicine 04/05/23 Horse Riding Coach Or Instructor Relationship Specialty Start Date End Date Helio Florian MD [address] [place] [address] PCP - General Family Medicine 04/05/23 Breana Posada NP [address], [place] [id number] PCP - [place] [facility] 12/30/2408/30 INFORMATION SOURCE (unrecogn ized section and content) DATE CREATED AUTHOR 09/21/2022 [facility] DATE CREATED AUTHOR AUTHOR'S ORGANIZ ATION 04/17/2025 [facility] DATE CREATED AUTHOR AUTHOR'S ORGANIZ ATION 04/21/2025 [facility] EPIC Reason for Visit (unrecogniz [...] BE BASED ON THE PRIMARY CLINICAL RECORDS. [facility] [employer] [facility]. provides no warranty or guarantee of the accuracy or completeness of information in this document.
--- NOTE | 2025-05-14 21:40 | ED.FEMALEGU1 ---
HPI - Female Genitourinary General Chief complaint: Vaginal Bleeding Stated complaint: 6WKS PREG, VAGINAL BLEEDING Time Seen by Provider: 05/14/25 21:32 Source: patient Mode of arrival: walk-in Limitations: no limitations History of Present Illness HPI Narrative: This 24-year-old female who is approximately 6 weeks presents for evaluation of light vaginal bleeding. The patient states the symptoms started earlier today. She is not having any abdominal pain or cramping. She has not noticed any tissue. She states there is just light bleeding on the toilet paper. She is scheduled for an ultrasound with [facility] tomorrow. Related Data Home Medications ?Medication ?Instructions ?Recorded ?Confirmed injection testosterone 0.15 mg subcut .two times a week 05/05/23 05/05/23 bupropion HCl 300 mg 24 hr tablet, mg PO 05/05/23 extended release cariprazine 6 mg capsule (Vraylar) 6 mg PO DAILY 05/05/23 08/31/24 hydroxyzine HCl 25 mg tablet mg 05/05/23 oxcarbazepine 300 mg tablet mg 05/05/23 trazodone 50 mg tablet mg 05/05/23 venlafaxine 75 mg capsule,extended 150 mg PO DAILY 08/31/24 08/31/24 release 24 hr Previous Rx's ?Medication ?Instructions ?Recorded jidyyswfguxdrls-kihyizjtyqikexz-UL 5 ml PO Q6H PRN cold symptoms #118 09/26/23 2 mg-30 mg-10 mg/5 mL oral syrup mL (Bromfed DM) Allergies Allergy/AdvReac Type Severity Reaction Status Date / Time No Known Drug Allergies Allergy Verified 08/31/24 12:58 Review of Systems ROS Status of ROS 10 or more systems reviewed and unremarkable except as noted in history and below PFSH PFSH Social History Smoking status: Former smoker Little interest or pleasure in doing things: not at all Feeling down, depressed, or hopeless: not at all Exam Narrative Exam Narrative: Vital signs and Nursing Notes reviewed: Patient is afebrile, she is tachycardic with a pulse of 113 and blood pressure is elevated 158/97, she is not hypoxic with pulse ox of 97% on room air General: Awake, alert, oriented, no acute distress, lying comfortably on the stretcher HEENT: Normocephalic atraumatic, mucous membranes are moist and pink, eyes are clear, normal conjunctiva, vision is grossly intact Chest: Lungs are clear to auscultation with good air entry, there is no wheezing rhonchi or rales appreciated no accessory muscle use, patient is speaking in complete sentences-no chest wall tenderness to palpation CVS: Regular rate and rhythm S1-S2, no murmurs rubs or gallops, pulses are brisk and equal bilaterally ABD: Obese, soft, nondistended, nontender, no rebound guarding or rigidity, bowel sounds are normal, no pulsatile masses appreciated Extremities: Moving all extremities, no lower extremity tenderness or swelling noted, negative Homans' sign, pulses are brisk and equal bilaterally Skin: Normal in appearance without rash,pallor, petechiae or purpura Neuro: No focal deficits Constitutional Vital Signs, click to edit/add: Last Vital Signs Temp 98.6 F 05/14/25 21:30 Pulse 113 H 05/14/25 21:30 Resp 18 05/14/25 21:30 BP 158/97 H 05/14/25 21:30 Pulse Ox 97 05/14/25 21:30 O2 Del Method Room Air 05/14/25 21:30 Course Vital Signs Vital signs: Vital Signs Temperature 98.6 F 05/14/25 21:30 Pulse Rate 113 H 05/14/25 21:30 Respiratory Rate 18 05/14/25 21:30 Blood Pressure 158/97 H 05/14/25 21:30 Pulse Oximetry 97 05/14/25 21:30 Oxygen Delivery Method Room Air 05/14/25 21:30 Temperature 98.6 F 05/14/25 21:30 Pulse Rate 113 H 05/14/25 21:30 Respiratory Rate 18 05/14/25 21:30 Blood Pressure 158/97 H 05/14/25 21:30 Pulse Oximetry 97 05/14/25 21:30 Oxygen Delivery Method Room Air 05/14/25 21:30 MDM - Female Genitourinary MDM Narrative Medical decision making narrative: This 24-year-old female G2, P0 who is approximately 6 weeks has not yet had an ultrasound presents for evaluation of vaginal spotting. She states there is a small amount of bleeding when she wipes. She has not had any heavy bleeding, passage of clots or tissue. She is not having an abdominal pain or back pain. Her vital signs are stable. She is scheduled to have an ultrasound tomorrow at [facility]. Her physical exam is benign. Abdomen is nontender. Workup for threatened miscarriage was ordered. She has an elevated white count at 15 and stable hemoglobin at 13.2. Comprehensive metabolic profile is normal. Her beta quantitative hCG is 48,052. Her blood type is B-. She was given a dose of RhoGAM prior to being discharged. She was encouraged to follow-up closely with her DIRECTOR MANUFACTURING ENGINEERING and return to the emergency department for abdominal pain, heavy vaginal bleeding, passage of clots or tissue or any concerns. I did explain to her that in light of her and vaginal bleeding she will be considered a threatened miscarriage. Pelvic rest including no sex, tampons or douching was discussed with her. She verbalizes understanding. Lab Data Labs: Lab Results 05/14/25 05/14/25 Range/Units 22:05 22:25 WBC 15.3 H (4.0-11.0) 10^3/uL RBC 4.29 (4.20-5.40) 10^6/uL Hgb 13.2 (12.0-16.0) g/dL Hct 36.8 (36.0-48.0) % MCV 85.8 (81.0-99.0) fL MCH 30.8 (26.7-34.0) pg MCHC 35.9 H (29.9-35.2) g/dL RDW 12.8 (11.0-15.0) % Plt Count 274 (150-450) 10^3/uL MPV 9.0 L (9.5-13.5) fL Neut % (Auto) 63.8 (43.0-75.0) % Lymph % (Auto) 24.3 (20.5-60.0) % Elbert % (Auto) 9.0 (1.7-12.0) % Eos % (Auto) 1.8 (0.9-7.0) % Baso % (Auto) 0.4 (0.2-2.0) % Neut # (Auto) 9.8 H (1.4-6.5) 10^3/uL Lymph # (Auto) 3.7 (1.2-3.8) 10^3/uL Elbert # (Auto) 1.4 H (0.3-0.8) 10^3/uL Eos # (Auto) 0.3 (0.0-0.7) 10^3/uL Baso # (Auto) 0.1 (0.0-0.1) 10^3/uL Abs Immat Gran (auto) 0.11 H (0.00-0.03) 10^3/uL Imm/Tot Granulo (auto) 0.7 H (0.0-0.5) % Sodium 135 L (136-145) mmol/L Potassium 3.4 L (3.5-5.1) mmol/L Chloride 104 (98-107) mmol/L Carbon Dioxide 24.7 (21.0-32.0) mmol/L Anion Gap 9.7 BUN 10.0 (7.0-18.0) mg/dL Creatinine 0.74 (0.55-1.02) mg/dL Est GFR ( Amer) >60 (>=60 mL/min/1.73m^2) Est GFR (Non-Af Amer) >60 (>=60 mL/min/1.73m^2) BUN/Creatinine Ratio 13.5 Glucose 87 (74-106) mg/dL Calcium 9.3 (8.5-10.1) mg/dL Total Bilirubin 0.3 (0.2-1.0) mg/dL AST 17 (15-37) U/L ALT 44 (14-59) U/L Alkaline Phosphatase 91 (46-116) U/L Total Protein 7.3 (6.4-8.2) g/dL Albumin 3.3 L (3.4-5.0) g/dL Globulin 4.0 g/dL Albumin/Globulin Ratio 0.8 HCG, Quant 63553 mIU/mL Urine Color Lt. yellow (YELLOW) Urine Clarity Clear (CLEAR) Urine pH 6.5 (5.0-9.0) Ur Specific Lincoln 1.020 (1.005-1.025) Urine Protein Negative (NEG/TRACE) mg/dL Urine Glucose (UA) Negative (NEGATIVE) mg/dL Urine Ketones Negative (NEGATIVE) mg/dL Urine Occult Blood Negative (NEGATIVE) Urine Nitrite Negative (NEGATIVE) Urine Bilirubin Negative (NEGATIVE) Urine Urobilinogen 0.2 (0.2-1.0) EU/dL Ur Leukocyte Esterase Negative (NEGATIVE) Urine RBC 0-2 (0-2) #/HPF Urine WBC 0-2 A (NONE SEEN) #/HPF Ur Squamous Epith Cells Moderate A (NONE/RARE) #/LPF Urine Crystals None seen (None Seen) #/HPF Urine Bacteria Trace A (NONE SEEN) #/HPF Urine Casts None seen (NONE SEEN) #/LPF Urine Mucus None seen (NONE SEEN) Ur Culture Indicated? No Blood Type B Negative Antibody Screen Negative Discharge Plan Discharge Chief Complaint: Vaginal Bleeding Clinical Impression: Vaginal bleeding affecting early , Miscarriage, threatened, early Patient Disposition: Home, Self-Care Time of Disposition Decision: 23:38 Condition: Good Prescriptions / Home Meds: No Action trazodone 50 mg tablet oxcarbazepine 300 mg tablet hydroxyzine HCl 25 mg tablet bupropion HCl 300 mg tablet extended release 24 hr PO Vraylar 6 mg capsule 6 mg PO DAILY injection testosterone 0.15 mg subcut .two times a week venlafaxine 75 mg capsule,extended release 24hr 150 mg PO DAILY flgmzwupmzkucwx-fsluuvyjo-AK [Bromfed DM] 2-30-10 mg/5 mL syrup 5 ml PO Q6H PRN (Reason: cold symptoms) Qty: 118 0RF Print Language: Nigerien Instructions: Threatened Miscarriage (ED) Referrals: Cuong Diez DO [Physician, DIRECTOR MANUFACTURING ENGINEERING] - 1 week ALFREDO JORGENSEN [Primary Care Provider, Family Practice] - 1 week
[2025-05-14 22:11] LABS: Glucose Urine UA NEGATIVE (NEGATIVE)
[2025-05-14 22:16] LABS: Cast Seen? NONE SEEN #/LPF (NONE SEEN); Crystals Seen? None Seen #/HPF (None Seen); Urine Culture Indicated NO
[2025-05-14 22:33] LABS: Hematocrit 36.8 % (36.0-48.0); Hemoglobin 13.2 g/dL (12.0-16.0); Immature Granulocytes Abs Auto 0.11 10^3/uL (0.00-0.03); Immature Granulocytes Pct Auto 0.7 % (0.0-0.5); Lymphocytes Absolute Auto 3.7 10^3/uL (1.2-3.8); Mean Corpuscular HGB Conc 35.9 g/dL (29.9-35.2); Mean Corpuscular Hemoglobin 30.8 pg (26.7-34.0); Mean Corpuscular Volume 85.8 fL (81.0-99.0); Platelet Count 274 10^3/uL (150-450); Red Blood Count 4.29 10^6/uL (4.20-5.40); White Blood Count 15.3 10^3/uL (4.0-11.0)
[2025-05-14 23:08] LABS: Alanine Aminotransferase 44 U/L (14-59); Albumin Globulin Ratio 0.8; Albumin Level 3.3 g/dL (3.4-5.0); Alkaline Phosphatase 91 U/L (46-116); Anion Gap 9.7; Aspartate Amino Transferase 17 U/L (15-37); Blood Urea Nitrogen 10.0 mg/dL (7.0-18.0); Calcium 9.3 mg/dL (8.5-10.1); Carbon Dioxide 24.7 mmol/L (21.0-32.0); Chloride 104 mmol/L (98-107); Estimated GFR (African America >60 (>=60 mL/min/1.73m^2); Estimated GFR (Non-African Ame >60 (>=60 mL/min/1.73m^2); Globulin 4.0 g/dL; Glucose 87 mg/dL (74-106); Potassium 3.4 mmol/L (3.5-5.1); Sodium 135 mmol/L (136-145); Total Protein 7.3 g/dL (6.4-8.2)
[2025-05-14] MEDS: RHO(D) IMMUNE GLOBULIN 1,500 UNIT SYRINGE 1500 UNIT IM (23:52)
== END 2025-05-14 23:59 | disposition home or self-care (01) ==
PROVIDERS: Emergency Provider Emergency Medicine; PCP Nurse Practitioner Family
DX: O20.0 Threatened abortion (principal)
CPT/HCPCS: 36415; 80053; 81001; 84702; 85025; 86850; 86900; 86901; 96372; 99285; J2791

== ENCOUNTER 2025-05-29 12:50 | Outpatient (OUT) | payer OTHER, SELFPAY ==
--- OUTSIDE RECORDS SUMMARY | 2025-05-29 12:59 | XMS_ITS | CCD ---
Author Organization [facility] Care Team Providers Care Orthopedic Dentist Name Role Phone MD Helio Florian Primary Care Provider MD Param Rao Admit Provider [phone] MD Param Rao Attending Provider MARKER, DR JONAS Admitting Unavailable MARKER, DR JONAS Attending Unavailable MARKER, DR JONAS Consulting Unavailable NADERER, DR HELIO Verma Primary Care Unavailable CHIQUI, [...] Admitting Unavailab Helio Cornejo Primary Care Unavailable Breana Posada NP Unavailable RENEE DIEZ Attending Unavailable RENEE DIEZ Referring Unavailable BREANA POSADA Attending Unavailable Medications Current [...] hydrochloride 500 mg extended release oral tablet (9 sources) Biguanide Start: 03-23-2025 End: 05-15-2025 take 1 tablet by mouth every twenty-four hours at mealtime metFORMIN XR (Glucophage-XR) 500 MG 24 hr tablet Indications: Female infertility , PCOS (polycystic ovarian syndrome) Take 1 tablet (500 mg) by mouth in the evening. Take with meals Do not crush, chew, or split. 30 tablet 11 03/23/2025 05/15/2025 Discontinued (Therapy completed) 24 hr nicotine 0.583 mg/hr transdermal system (1 source) Cholinergic Nicotinic Agonist Start: 09-15-2022 Nicotine Active 1 EACH TRANSDERML Daily September 15, 2022 12:00am QUEtiapine 25 mg oral tablet (5 sources) Atypical Antipsychotic Start: 04-14-2025 take 1 tablet by mouth at bedtime QUEtiapine (SEROquel) 25 MG tablet Take 25 mg by mouth at bedtime 04/14/2025 Active sertraline 25 mg oral tablet (9 sources) Serotonin Reuptake Inhibitor Start: 03-18-2025 take [...] Translations: [HEADACHE UNSPECIFIED] Onset: 09-30-2021 Menstrual disorders (4 sources) Amenorrhea; Translations: [Amenorrhea, unspecified] 04-19-2025 Chronic Mood disorders (4 sources) Bipolar disorder; Translations: [Bipolar disorder, unspecified] Onset: 05-15-2025 09-13-2022 Chronic Mood disorders (1 source) Mood [...] D/T EXCESS FELICIANO] Onset: 10-04-2021 Chronic Other and delivery including normal (3 sources) Urine test positive; Translations: [Encounter for test, result positive] 05-06-2025 Episodic Other screening for suspected conditions (not mental disorders or infectious disease) (2 sources) Possible ; Translations: [Encounter for test, result unknown] 04-19-2025 Episodic Personality disorders (2 sources) Borderline personality disorder; Translations: [Borderline personality disorder] Onset: 05-15-2025 05-15-2025 Chronic Residual codes; unclassified (1 source) Gestation period, 7 weeks; Translations: [Less than 8 weeks gestation of ] 05-15-2025 Episodic Substance-related disorders (1 source) Nicotine dependence, [...] 10-05-2021 Episodic Other aftercare (1 source) Other nursing home (current) drug therapy; Translations: [OTH INTERMEDIATE CURRENT DRUG THERAPY] Onset: 10-05-2021 Episodic Residual [...] Test Name Value Interpretation Reference Range Facility HCG ( test) Ql (U)o n 05-15-2025 Interpretation and review of laboratory results Abnormal [facility] Preg Test, Ur Positive Negative [facility] OB TRANSVAGINALon 025 OB TRANSVAGINAL FINDINGS: A single intrauterine gestational sac is [...] BY: ELECTRONICALLY SIGNED BY: Hunter Huffman MD Normal Not Available Comment on above: Order Comment: US OB TRANSVAGINAL No LMP recorded. Urinalysis macro (dipstick) panel (U)on 05-15-2025 Bilirubin, UA Negative Negative - 4(70) +++ mg/dL [facility] Blood, UA Negative Negative - 50 Yogesh/mcL [facility] Clarity, UA Clear [facility] Color, UA Yellow [facility] Glucose, UA Negative Negative - 2000(110) ++++ mg/dL [facility] Interpretation and review of laboratory results Normal [facility] Ketones, UA Negative Negative - 160(16) ++++ mg/dL [facility] Leukocytes, UA Negative Negative - 500+++ Jaci/mcL [facility] Nitrite, UA Negative Negative - Positive [facility] pH, UA 6 5 - 9 [facility] Protein, UA Negative Negative - 2000(20) ++++ mg/dL [facility] Spec Grav, UA 1.015 1 - 1.03 [facility] Urobilinogen, UA 1.0 0.2 - 12 mg/dL [facility] PREG QUANT HCGon 025 HCG QUANTITATIVE 275 mIU/mL [facility] Comment on above: 5-50 0.2-1 WEEK 50-500 1-2 WEEKS 100-5,000 2-3 WEEKS 500-10,000 3-4 WEEKS 1,000-50,000 4-5 WEEKS 10,000-100,000 5-6 WEEKS 15,000-200,000 6-8 WEEKS 10,000-100,000 2-3 MONTHS [facility] PREG QUANT HCGon 025 HCG QUANTITATIVE 97 mIU/mL [facility] Comment on above: 5-50 0.2-1 WEEK 50-500 1-2 WEEKS 100-5,000 2-3 WEEKS 500-10,000 3-4 WEEKS 1,000-50,000 4-5 WEEKS 10,000-100,000 5-6 WEEKS 15,000-200,000 6-8 WEEKS 10,000-100,000 2-3 MONTHS [facility] HCG ( test) Ql (U)o n 04-19-2025 Interpretation and review of laboratory results Normal [facility] Preg Test, Ur Negative Negative [facility] ALL PROGESTERONEon 5 PROGESTERONE 9.5 ng/mL . [facility] Comment on above: Follicular phase 0.1 - 0.9 Luteal phase 1.8 - 23.9 Ovulation phase 0.1 - 12.0 First trimester 11.0 - 44.3 Second trimester 25.4 - 83.3 Third trimester 58.7 - 214.0 Postmenopausal 0.0 - 0.1 Performed at: [facility] [employer] [id number] Terminal Computer Operator: Ilya Manjarrez PhD, Phone: [phone] [facility] MLR HEMOGLOBIN A1Con 025 Glucose [Mass/Vol] 105 mg/dL [facility] HbA1c (Bld) [Mass fraction] 5.3 % 4.5 - 6.2 % [facility] Comment on above: ADA RECOMMENDED LIMI T 4.0 - 6.0 ADA THERAPEUTIC TARGET < 7.0 ACTION SUGGESTED > 7.0 [facility] US PELVIC COMPLETE W/ TVon [...] II, MD, PHD at 25-Mar-2025 07:52:19 AM [facility] Normal Not Available Comment on above: Order Comment: US PE LVIS-TRANSVAG IF INDICATED Patient's last menstrual period was 03/21/2025. Cholesterol [Mass/volume] in Serum or PlasmaOrdered By: Param Rao on 09-13-2022 Cholesterol [Mass/Vol] 141 mg/dL 140-200 [facility] Comment on above: Chol less than 200 m g/dl low riskChol 201-239 mg/dl borderline riskChol 240 mg/dl and greater high risk Cholesterol in LDL Calc [Mas s/Vol]Ordered By: Param Rao on 09-13-2022 Cholesterol in LDL [Mass/Vol] 94 mg/dL 0-100 [facility] Comment on above: LDL ATP III CLASSIFI CATIONLDL less than 100 mg/dL OptimalLDL 100-129 mg/dL Near or above optimalLDL 130-159 mg/dL Borderline highLDL 160-189 mg/dL HighLDL greater than 189 mg/dL Very high Cholesterol in VLDL Calc [Ma ss/Vol]Ordered By: Param Rao on 09-13-2022 Cholesterol in VLDL [Mass/Vol] 9 mg/dL [facility] No Panel InformationOrdered By: Param Rao on 09-13-2022 25-Hydroxy Vitamin D Total 11.9 ng/mL 30-100 [facility] Comment on above: VITAMIN D STATUS [...] Cholesterol in HDL [Mass/Vol] 38 mg/dL 35-85 [facility] Comment on above: HDL CHOL ATP-III CLA SSIFICATION Cardiovascular RiskHDL > or equal to 60 mg/dL LOWHDL < 40 mg/dL HIGH Serum or plasma total choles terol/high density lipoprotein (HDL) cholesterol mass ratOrdered By: Param Rao on 09-13-2022 Cholesterol.total/Chol esterol in HDL [Mass ratio] 3.7 {ratio} <5.0 [facility] TSH DL <= 0.005 mIU/L QnOrde red By: Param Rao on 09-13-2022 TSH Qn 0.81 m[IU]/L 0.45-5.33 [facility] Triglyceride [Mass/volume] i n Serum or PlasmaOrdered By: Param Jalen on 09-13-2022 Triglyceride [Mass/Vol] 45 mg/dL 35-149 [facility] Comment on above: TRIG ATP III CLASSIF ICATIONTRIG less than 150 mg/dL NormalTRIG 150-199 mg/dL Borderline highTRIG 200-500 mg/dL High TRIG greater than 500 mg/dL Very highStandard traceable to the Center for Disease Conrtrol and Prevention (CDC) test method. ACETAMINOPHENon 09-12-2022 Acetaminophen [Mass/Vol] ug/mL Critically low 10.0-30.0 [facility] Comment on above: Performed By: #### S ALYC, ACET, CMP #### [facility] [address] [place] [address] Dr. Machelle Garcia CBC AUTO DIFFon 09-12-2022 BASO # 0.0 103/ul Normal 0.0-0.1 [facility] Comment on above: Performed By: #### C BC #### [facility] [address] [place] [address] Dr. Machelle Garcia Basophils/100 WBC (Bld) 0.4 % Normal 0.2-2.0 [facility] Comment on above: Performed By: #### C BC #### [facility] [address] [place] [address] Dr. Machelle Garcia EO # 0.1 103/ul Normal 0.0-0.7 [facility] Comment on above: Performed By: #### C BC #### [facility] [address] [place] [address] Dr. Machelle Garcia Eosinophils/100 WBC (Bld) 0.8 % Critically low 0.9-7.0 [facility] Comment on above: Performed By: #### C BC #### [facility] [address] [place] [address] Dr. Machelle Garcia Erythrocyte distribution width (RBC) [Ratio] 12.4 % Normal 11.0-15.0 [facility] Comment on above: Performed By: #### C BC #### [facility] [address] [place] [address] Dr. Machelle Garcia Hematocrit (Bld) [Volume fraction] 40.4 % Normal 36.0-48.0 [facility] Comment on above: Performed By: #### C BC #### [facility] [address] [place] [address] Dr. Machelle Garcia Hemoglobin (Bld) [Mass/Vol] 14.3 g/dL Normal 12.0-16.0 [facility] Comment on above: Performed By: #### C BC #### [facility] [address] [place] [address] Dr. Machelle Garcia IG # 0.02 10e3/ul Normal 0.00-0.03 [facility] Comment on above: Performed By: #### C BC #### [facility] [address] [place] [address] Dr. Machelle Garcia IG % 0.3 % Normal 0.0-0.5 [facility] Comment on above: Performed By: #### C BC #### [facility] [address] [place] [address] Dr. Machelle Garcia LYMPH # 1.0 103/ul Critically low 1.2-3.8 [facility] Comment on above: Performed By: #### C BC #### [facility] [address] [place] [address] Dr. Machelle Garcia Lymphocytes/100 WBC (Bld) 14.1 % Critically low 20.5-60.0 [facility] Comment on above: Performed By: #### C BC #### [facility] [address] [place] [address] Dr. Machelle Garcia MANUAL DIFF REQ NO Normal [facility] Comment on above: Performed By: #### C BC #### [facility] [address] [place] [address] Dr. Machelle Garcia MCH (RBC) [Entitic mass] 29.7 pg Normal 26.7-34.0 [facility] Comment on above: Performed By: #### C BC #### [facility] [address] [place] [address] Dr. Machelle Garcia MCHC (RBC) [Mass/Vol] 35.4 g/dL Critically high 29.9-35.2 [facility] Comment on above: Performed By: #### C BC #### [facility] [address] [place] [address] Dr. Machelle Garcia MCV (RBC) [Entitic vol] 83.8 fL Normal 81.0-99.0 [facility] Comment on above: Performed By: #### C BC #### [facility] [address] [place] [address] Dr. Machelle Garcia MONO # 0.9 103/ul Critically high 0.3-0.8 [facility] Comment on above: Performed By: #### C BC #### [facility] [address] [place] [address] Dr. Machelle Garcia Monocytes/100 WBC (Bld) 12.6 % Critically high 1.7-12.0 [facility] Comment on above: Performed By: #### C BC #### [facility] [address] [place] [address] Dr. Machelle Garcia NEUT # 5.2 103/ul Normal 1.4-6.5 [facility] Comment on above: Performed By: #### C BC #### [facility] [address] [place] [address] Dr. Machelle Garcia Neutrophils/100 WBC (Bld) 71.8 % Normal 43.0-75.0 [facility] Comment on above: Performed By: #### C BC #### [facility] [address] [place] [address] Dr. Machelle Garcia Platelet mean volume (Bld) [Entitic vol] 9.9 fL Normal 9.5-13.5 [facility] Comment on above: Performed By: #### C BC #### [facility] [address] [address] [address] Machelle Garcia PLT 245 103/ul Normal 150-450 [facility] Comment on above: Performed By: #### C BC #### [facility] [address] [address] [address] Machelle Garcia RBC 4.82 106/ul Normal 4.20-5.40 [facility] Comment on above: Performed By: #### C BC #### [facility] [address] [address] [address] Machelle Garcia WBC 7.2 103/ul Normal 4.0-11.0 [facility] Comment on above: Performed By: #### C BC #### [facility] [address] [address] [address] Machelle Garcia DRUG SCREEN RAPID (URINE)on 09-12-2022 AMP Negative Normal NEGATIVE [facility] Comment on above: Performed By: #### D RUGRPD ####[facility] [address] [address]DrMarilee Garcia BAR Negative Normal NEGATIVE [facility] Comment on above: Performed By: #### D RUGRPD ####[facility] [address] [id number] Garcia BUP Negative Normal NEGATIVE [facility] Comment on above: Performed By: #### D RUGRPD ####[facility] [address] [id number] Garcia BZO Negative Normal NEGATIVE [facility] Comment on above: Performed By: #### D RUGRPD ####[facility] [address] [id number] Garcia JOHN Negative Normal NEGATIVE [facility] Comment on above: Performed By: #### D RUGRPD ####[facility] [address] [address]DrMarilee Garcia CUT-OFFS SEE BELOW Normal [facility] Comment on above: Result Comment: AMP (Amphetamine): [...] D RUGRPD ####[facility] [address] [place], [place] [address]Dr. Machelle Garcia DRUG CUT HEADER DRUG CLASS TEST SYSTEM CUT-OFF CONCENTRATIONS ARE FOLLOWS: Normal [facility] Comment on above: Performed By: #### D RUGRPD ####[facility] [address] [place], [place] [address]Dr. Machelle Garcia mAMP Negative Normal NEGATIVE [facility] Comment on above: Performed By: #### D RUGRPD ####[facility] [address] [place], [place] [address]Dr. Machelle Garcia MTD Negative Normal NEGATIVE [facility] Comment on above: Performed By: #### D RUGRPD ####[facility] [address] [place], [place] [address]Dr. Machelle Garcia OPI Negative Normal NEGATIVE [facility] Comment on above: Performed By: #### D RUGRPD ####[facility] [address] [place], [place] [address]Dr. Machelle Garcia OXY Negative Normal NEGATIVE [facility] Comment on above: Performed By: #### D RUGRPD ####[facility] [address] [place], [place] [address]Dr. Machelle Garcia PCP Negative Normal NEGATIVE [facility] Comment on above: Performed By: #### D RUGRPD ####[facility] [address] [address]Dr. Machelle Garcia PPX Negative Normal NEGATIVE [facility] Comment on above: Performed By: #### D RUGRPD ####[facility] [address] [address]Dr. Machelle Garcia TCA Negative Normal NEGATIVE [facility] Comment on above: Performed By: #### D RUGRPD ####[facility] [address] [address]Dr. Machelle Garcia THC Positive Abnormal NEGATIVE [facility] Comment on above: Performed By: #### D RUGRPD ####[facility] [address] [address]Dr. Machelle Garcia ER URINE PROFILEon 2 Bilirubin Ql (U) Negative Normal NEGATIVE [facility] Comment on above: Performed By: #### P REGU, ERUR #### [facility] [address] [address] [address] Machelle Garcia Clarity (U) CLEAR Normal CLEAR [facility] Comment on above: Performed By: #### P REGU, ERUR #### [facility] [address] [address] [address] Machelle Garcia Color (U) LT. YELLOW Normal YELLOW [facility] Comment on above: Performed By: #### P REGU, ERUR #### [facility] [address] [address] [address] Machelle TAYLOR A micrscopic examination will be performed if indicated. Normal [facility] Comment on above: Performed By: #### P REGU, ERUR #### [facility] [address] [address] [address] Machelle Garcia Glucose Ql (U) Negative Normal NEGATIVE [facility] Comment on above: Performed By: #### P REGU, ERUR #### [facility] [address] [address] [address] Machelle Garcia Hemoglobin Ql (U) Negative Normal NEGATIVE [facility] Comment on above: Performed By: #### P REGU, ERUR #### [facility] [address] [place] [address] Dr. Machelle Garcia Ketones Ql (U) TRACE Abnormal NEGATIVE [facility] Comment on above: Performed By: #### P REGU, ERUR #### [facility] [address] [place] [address] Dr. Machelle Garcia LEUKOCYTES Negative Normal NEGATIVE [facility] Comment on above: Performed By: #### P REGU, ERUR #### [facility] [address] [place] [address] Dr. Machelle Garcia Nitrite Ql (U) Negative Normal NEGATIVE [facility] Comment on above: Performed By: #### P REGU, ERUR #### [facility] [address] [place] [address] Dr. Machelle Garcia pH (U) 5.5 [pH] Normal 5-9 [facility] Comment on above: Performed By: #### P REGU, ERUR #### [facility] [address] [place] [address] Dr. Machelle Garcia SPEC GRAVITY 1.020 Normal 1.005-<=1.02 5 [facility] Comment on above: Performed By: #### P REGU, ERUR #### [facility] [address] [place] [address] Dr. Machelle Garcia UA PROTEIN Negative Normal NEGATIVE/ TRACE [facility] Comment on above: Performed By: #### P REGU, ERUR #### [facility] [address] [place] [address] Dr. Machelle Garcia UR MICRO IND NOT INDICATED Normal [facility] Comment on above: Performed By: #### P REGU, ERUR #### [facility] [address] [place] [address] Dr. Machelle Garcia Urobilinogen Qn (U) 0.2 {Jeanine'U}/dL Normal 0.2 - 1. 0 [facility] Comment on above: Performed By: #### P REGU, ERUR #### [facility] [address] [place] [address] Dr. Machelle Garcia ETHANOL (BLD ALC)on 09-12-20 ALC NOTE NOTE: 80 mg/dl is e legal limit for a blood alcohol level Normal [facility] Comment on above: Performed By: #### E TH ####[facility] [address] [id number]. Machelle Garcia Ethanol [Mass/Vol] mg/dL Normal [facility] Comment on above: Performed By: #### E TH ####[facility] [address] [employer] [address]HrDr. Machelle Garcia URon 09-12-2022 , QUAL Negative Normal NEGATIVE [facility] Comment on above: Performed By: #### P REGU, ERUR #### [facility] [address] [address] [address] Machelle Garcia PROF 14(COMP METB)on 022 Albumin [Mass/Vol] 3.9 g/dL Normal 3.4-5.0 [facility] Comment on above: Performed By: #### S KENNA ACET, CMP #### [facility] [address] [address] [address] Machelle Garcia Albumin/Globulin [Mass ratio] 1.1 {ratio} Normal [facility] Comment on above: Performed By: #### S KENNA ACET, CMP #### [facility] [address] [address] [address] Machelle Garcia ALP [Catalytic activity/Vol] 89 U/L Normal 46-116 [facility] Comment on above: Performed By: #### S KENNA ACET, CMP #### [facility] [address] [address] [address] Machelle Garcia ALT [Catalytic activity/Vol] 19 U/L Normal 14-59 [facility] Comment on above: Performed By: #### S KENNA ACET, CMP #### [facility] [address] [address] [address] Machelle Garcia Anion gap [Moles/Vol] 12.1 mmol/L Normal e [facility] Comment on above: Performed By: #### S KENNA ACET, CMP #### [facility] [address] [address] [address] Machelle Garcia AST [Catalytic activity/Vol] 16 U/L Normal 15-37 [facility] Comment on above: Performed By: #### S ALYC, ACET, CMP #### [facility] [address] [place] [address] Dr. Machelle Garcia Bilirubin [Mass/Vol] 0.4 mg/dL Normal 0.2-1.0 [facility] Comment on above: Performed By: #### S ALYC, ACET, CMP #### [facility] [address] [place] [address] Dr. Machelle Garcia Calcium [Mass/Vol] 9.0 mg/dL Normal 8.5-10.1 [facility] Comment on above: Performed By: #### S ALYC, ACET, CMP #### [facility] [address] [place] [address] Dr. Machelle Garcia Chloride [Moles/Vol] 104 mmol/L Normal 98-107 [facility] Comment on above: Performed By: #### S ALYC, ACET, CMP #### [facility] [address] [place] [address] Dr. Machelle Garcia CO2 [Moles/Vol] 25.5 mmol/L Normal 21.0-32.0 [facility] Comment on above: Performed By: #### S ALYC, ACET, CMP #### [facility] [address] [place] [address] Dr. Machelle Garcia Creatinine [Mass/Vol] 0.86 mg/dL Normal 0.55-1.02 [facility] Comment on above: Performed By: #### S ALYC, ACET, CMP #### [facility] [address] [place] [address] Dr. Machelle Garcia EGFR-AF TRINIDADIAN >60 Normal >=60 [facility] Comment on above: Performed By: #### S ALYC, ACET, CMP #### [facility] [address] [place] [address] Dr. Machelle Garcia EGFR-NON AF TRINIDADIAN >60 Normal >=60 [facility] Comment on above: Performed By: #### S ALYC, ACET, CMP #### [facility] [address] [address] [address] Machelle Garcia Globulin (S) [Mass/Vol] 3.4 g/dL Normal [facility] Comment on above: Performed By: #### S ALYC, ACET, CMP #### [facility] [address] [address] [address] Machelle Garcia Glucose [Mass/Vol] 102 mg/dL Normal 74-106 [facility] Comment on above: Performed By: #### S ALYC, ACET, CMP #### [facility] [address] [address] [address] Machelle Garcia Potassium [Moles/Vol] 3.6 mmol/L Normal 3.5-5.1 [facility] Comment on above: Performed By: #### S ALYC, ACET, CMP #### [facility] [address] [address] [address] Machelle Garcia Protein [Mass/Vol] 7.3 g/dL Normal 6.4-8.2 [facility] Comment on above: Performed By: #### S ALYC, ACET, CMP #### [facility] [address] [address] [address] Machelle Garcia Sodium [Moles/Vol] 138 mmol/L Normal 136-145 [facility] Comment on above: Performed By: #### S ALYC, ACET, CMP #### [facility] [address] [address] [address] Machelle Garcia Urea nitrogen [Mass/Vol] 10.0 mg/dL Normal 7.0-18.0 [facility] Comment on above: Performed By: #### S ALYC, ACET, CMP #### [facility] [address] [address] [address] Machelle Garcia Urea nitrogen/Creatinine [Mass ratio] 11.6 mg/mg Normal [facility] Comment on above: Performed By: #### S ALYC, ACET, CMP #### [facility] [address] [address] [address] Machelle Garcia SALICYLATEon 09-12-2022 SALICYLATE <2.8 Normal <=19.9 [facility] Comment on above: Performed By: #### S ALYC, ACET, CMP #### [facility] [address] [place] [address] Dr. Machelle Garcia XR CHEST 1 Von [...] 09-30-2021 BASO # 0.0 103/ul Normal 0.0-0.1 [facility] Comment on above: Performed By: #### C BC #### [facility] [address] [place] [address] Dr. Machelle Garcia Basophils/100 WBC (Bld) 0.4 % Normal 0.2-2.0 [facility] Comment on above: Performed By: #### C BC #### [facility] [address] [place] [address] Dr. Machelle Garcia EO # 0.1 103/ul Normal 0.0-0.7 [facility] Comment on above: Performed By: #### C BC #### [facility] [address] [place] [address] Dr. Machelle Garcia Eosinophils/100 WBC (Bld) 1.3 % Normal 0.9-7.0 [facility] Comment on above: Performed By: #### C BC #### [facility] [address] [place] [address] Dr. Machelle Garcia Erythrocyte distribution width (RBC) [Ratio] 12.8 % Normal 11.0-15.0 [facility] Comment on above: Performed By: #### C BC #### [facility] [address] [place] [address] Dr. Machelle Garcia Hematocrit (Bld) [Volume fraction] 40.7 % Normal 36.0-48.0 [facility] Comment on above: Performed By: #### C BC #### [facility] [address] [place] [address] Dr. Machelle Garcia Hemoglobin (Bld) [Mass/Vol] 13.7 g/dL Normal 12.0-16.0 [facility] Comment on above: Performed By: #### C BC #### [facility] [address] [place] [address] Dr. Machelle Garcia IG # 0.03 10e3/ul Normal 0.00-0.03 [facility] Comment on above: Performed By: #### C BC #### [facility] [address] [place] [address] Dr. Machelle Garcia IG % 0.4 % Normal 0.0-0.5 [facility] Comment on above: Performed By: #### C BC #### [facility] [address] [place] [address] Dr. Machelle Garcia LYMPH # 0.6 103/ul Critically low 1.2-3.8 [facility] Comment on above: Performed By: #### C BC #### [facility] [address] [place] [address] Dr. Machelle Garcia Lymphocytes/100 WBC (Bld) 8.8 % Critically low 20.5-60.0 [facility] Comment on above: Performed By: #### C BC #### [facility] [address] [place] [address] Dr. Machelle Garcia MANUAL DIFF REQ NO Normal [facility] Comment on above: Performed By: #### C BC #### [facility] [address] [place] [address] Dr. Machelle Garcia MCH (RBC) [Entitic mass] 29.0 pg Normal 26.7-34.0 [facility] Comment on above: Performed By: #### C BC #### [facility] [address] [place] [address] Dr. Machelle Garcia MCHC (RBC) [Mass/Vol] 33.7 g/dL Normal 29.9-35.2 [facility] Comment on above: Performed By: #### C BC #### [facility] [address] [place] [address] Dr. Machelle Garcia MCV (RBC) [Entitic vol] 86.2 fL Normal 81.0-99.0 [facility] Comment on above: Performed By: #### C BC #### [facility] [address] [place] [address] Dr. Machelle Garcia MONO # 1.0 103/ul Critically high 0.3-0.8 [facility] Comment on above: Performed By: #### C BC #### [facility] [address] [place] [address] Dr. Machelle Garcia Monocytes/100 WBC (Bld) 14.4 % Critically high 1.7-12.0 [facility] Comment on above: Performed By: #### C BC #### [facility] [address] [place] [address] Dr. Machelle Garcia NEUT # 5.1 103/ul Normal 1.4-6.5 [facility] Comment on above: Performed By: #### C BC #### [facility] [address] [place] [address] Dr. Machelle Garcia Neutrophils/100 WBC (Bld) 74.7 % Normal 43.0-75.0 [facility] Comment on above: Performed By: #### C BC #### [facility] [address] [place] [address] Dr. Machelle Garcia Platelet mean volume (Bld) [Entitic vol] 9.7 fL Normal 9.5-13.5 [facility] Comment on above: Performed By: #### C BC #### [facility] [address] [place] [address] Dr. Machelle Garcia PLT 211 103/ul Normal 150-450 [facility] Comment on above: Performed By: #### C BC #### [facility] [address] [place] [address] Dr. Machelle Garcia RBC 4.72 106/ul Normal 4.20-5.40 [facility] Comment on above: Performed By: #### C BC #### [facility] [address] [place], [place] [address] Dr. Machelle Garcia WBC 6.8 103/ul Normal 4.0-11.0 [facility] Comment on above: Performed By: #### C BC #### [facility] [address] [place], [place] [address] Dr. Machelle Garcia Covid-19 PCR ([facility])on 09-02 SARS-CoV-2 (COVID-19) RNA BERNARDINO+probe Ql [...] for this test is supported by the Planning Specialist of Health and Human Service's declaration that [...] [facility] [address] [place], [place] [address] Dr. Machelle Garcia D-DIMERon 09-30-2021 D-DIMER 0.37 mg/L FEU Normal 0.19-0.50 [facility] Comment on above: Performed By: #### D DIM #### [facility] [address] [place], [place] [address] Dr. Machelle Garcia D-DIMER COMMENTS SEE BELOW Normal [facility] Comment on above: Result Comment: [...] [facility] [address] [address] [address] Machelle Garcia PROF 14(COMP METB)on 021 Albumin [Mass/Vol] 3.5 g/dL Normal 3.5-5.0 [facility] Comment on above: Performed By: #### C MP ####[facility] [address] [address]Dr[address] Machelle Garcia Albumin/Globulin [Mass ratio] 0.9 {ratio} Normal [facility] Comment on above: Performed By: #### C MP ####[facility] [address] [address]Dr. Machelle Garcia ALP [Catalytic activity/Vol] 81 U/L Normal 38-126 [facility] Comment on above: Performed By: #### C MP ####[facility] [address] [address]Dr. Machelle Garcia ALT [Catalytic activity/Vol] 44 U/L Normal 9-52 [facility] Comment on above: Performed By: #### C MP ####[facility] [address] [address]Dr. Machelle Garcia Anion gap [Moles/Vol] 12.2 mmol/L Normal [facility] Comment on above: Performed By: #### C MP ####[facility] [address] [address]Dr. Machelle Garcia AST [Catalytic activity/Vol] 17 U/L Normal 14-36 [facility] Comment on above: Performed By: #### C MP ####[facility] [address] [address]Dr. Machelle Garcia Bilirubin [Mass/Vol] 0.3 mg/dL Normal 0.2-1.3 [facility] Comment on above: Performed By: #### C MP ####[facility] [address] [address]Dr. Machelle Garcia Calcium [Mass/Vol] 8.7 mg/dL Normal 8.4-10.2 [facility] Comment on above: Performed By: #### C MP ####[facility] [address] [address]Dr. Machelle Garcia Chloride [Moles/Vol] 103 mmol/L Normal 98-107 [facility] Comment on above: Performed By: #### C MP ####[facility] [address] [place], [place] [address]Dr. Machelle Garcia CO2 [Moles/Vol] 25.3 mmol/L Normal 22.0-30.0 [facility] Comment on above: Performed By: #### C MP ####[facility] [address] [place], [place] [address]Dr. Machelle Garcia Creatinine [Mass/Vol] 0.87 mg/dL Normal 0.52-1.04 [facility] Comment on above: Performed By: #### C MP ####[facility] [address] [place], [place] [address]Dr. Machelle Garcia EGFR-AF TRINIDADIAN >60 Normal >=60 [facility] Comment on above: Performed By: #### C MP ####[facility] [address] [place], [place] [address]Dr. Machelle Garcia EGFR-NON AF TRINIDADIAN >60 Normal >=60 [facility] Comment on above: Performed By: #### C MP ####[facility] [address] [place], [place] [address]Dr. Machelle Jose Globulin (S) [Mass/Vol] 3.8 g/dL Normal [facility] Comment on above: Performed By: #### C MP ####[facility] [address] [place], [place] [address]Dr. Machelle Jose Glucose [Mass/Vol] 99 mg/dL Normal 74-106 [facility] Comment on above: Performed By: #### C MP ####[facility] [address] [place], [place] [address]Dr. Machelle Jose Potassium [Moles/Vol] 3.5 mmol/L Normal 3.4-5.0 [facility] Comment on above: Performed By: #### C MP ####[facility] [address] [address]Dr. Machelle Garcia Protein [Mass/Vol] 7.3 g/dL Normal 6.1-8.2 [facility] Comment on above: Performed By: #### C MP ####[facility] [address] [address]Dr. Machelle Jose Sodium [Moles/Vol] 137 mmol/L Normal 137-145 [facility] Comment on above: Performed By: #### C MP ####[facility] [address] [address]Dr. Machelle Jose Urea nitrogen [Mass/Vol] 11.0 mg/dL Normal 6.4-19.3 [facility] Comment on above: Performed By: #### C MP ####[facility] [address] [address]Dr. Machelle Jose Urea nitrogen/Creatinine [Mass ratio] 12.6 mg/mg Normal [facility] Comment on above: Performed By: #### C MP ####[facility] [address] [address]Dr. Machelle Jose Cytology Cervical or vaginal smear or scraping studyOrdered By: Beata Greenberg on 12-09-2020 [facility] Vital Signs Date Time Vital Sign Value Performing Clinician Facility 05-15-2025 10:37-0400 Body mass index (BMI) [Ratio] 53.52 kg/m2 [facility] 05-15-2025 10:37-0400 Body weight 120.2 kg [facility] 05-15-2025 10:37-0400 Diastolic blood pressure 74 mm[Hg] [facility] 05-15-2025 10:37-0400 Systolic blood pressure 124 mm[Hg] [facility] 04-19-2025 09:36-0400 Body mass index (BMI) [Ratio] 51.71 kg/m2 Monty Lemons DO Work Phone: [facility] 04-19-2025 09:36-0400 Body temperature 98.71 [degF] Monty Lemons DO Work Phone: [facility] 04-19-2025 09:36-0400 Body weight 116.12 kg Monty Lemons DO Work Phone: [facility] 04-19-2025 09:36-0400 Diastolic blood pressure 72 mm[Hg] Monty Lemons DO Work Phone: [facility] 04-19-2025 09:36-0400 Heart rate 111 /min Monty Lemons DO Work Phone: [facility] 04-19-2025 09:36-0400 SaO2% (BldA) [Mass fraction] 99 % Monty Lemons DO Work Phone: [facility] 04-19-2025 09:36-0400 Systolic blood pressure 122 mm[Hg] Monty Lemons DO Work Phone: [facility] 03-23-2025 09:02-0400 Body height 149.9 cm Renee Chary DO Work Phone: [facility] 03-23-2025 09:02-0400 Body mass index (BMI) [Ratio] 51.71 kg/m2 Renee Chary DO Work Phone: [facility] 03-23-2025 09:02-0400 Body weight 116.12 kg Renee Chary DO Work Phone: [facility] 03-23-2025 09:02-0400 Diastolic blood pressure 70 mm[Hg] Renee Chary DO Work Phone: [facility] 03-23-2025 09:02-0400 Systolic blood pressure 120 mm[Hg] Renee Chary DO Work Phone: [facility] 09-09-2024 12:49-0500 Body mass index (BMI) [Ratio] 63.11 kg/m2 Breanavish Posada FACULTY ADMINISTRATOR Work Phone: [facility] 09-09-2024 12:49-0500 Body temperature 98.1 [degF] Breana Posada FACULTY ADMINISTRATOR Work Phone: [facility] 09-09-2024 12:49-0500 Body weight 105.9 kg Breana Posada FACULTY ADMINISTRATOR Work Phone: [facility] 09-09-2024 12:49-0500 Diastolic blood pressure 80 mm[Hg] Breana Posada FACULTY ADMINISTRATOR Work Phone: [facility] 09-09-2024 12:49-0500 Heart rate 103 /min Breana Posada FACULTY ADMINISTRATOR Work Phone: [facility] 09-09-2024 12:49-0500 SaO2% (BldA) [Mass fraction] 98 % Breana Posada FACULTY ADMINISTRATOR Work Phone: [facility] 09-09-2024 12:49-0500 Systolic blood pressure 100 mm[Hg] Breana Posada FACULTY ADMINISTRATOR Work Phone: [facility] 09-15-2022 07:26-0500 Body temperature 98.4 [degF] MD Helio Florian Work Phone: [facility] 09-15-2022 07:26-0500 Diastolic blood pressure 70 mm[Hg] MD Helio Florian Work Phone: [facility] 09-15-2022 07:26-0500 Heart rate 92 /min MD Helio Florian Work Phone: [facility] 09-15-2022 07:26-0500 Respiratory rate 16 /min MD Helio Florian Work Phone: [facility] 09-15-2022 07:26-0500 SaO2% (BldA) [Mass fraction] 97 % MD Helio Florian Work Phone: [facility] 09-15-2022 07:26-0500 Systolic blood pressure 117 mm[Hg] MD Helio Florian Work Phone: [facility] 09-13-2022 00:57-0500 Body height 149.86 cm MD Helio Florian Work Phone: [facility] 09-13-2022 00:57-0500 Body weight 90.71 kg MD Helio Florian Work Phone: [facility] Encounters Encounter Date Encounter Type Care Provider Facility Start: 05-15-2025 End: 05-15-2025 ambulatory Chary Nurse [facility] [employer] Comment on above: GA: [id number] Start: 04-23-2025 End: 04-23-2025 Clinisync Result Encounter [...] Dx); Amenorrhea Start: 04-14-2025 ambulatory Dante Esparza acility:[facility] Start: 04-10-2025 End: 04-11-2025 Clinisync Result [...] Office outpatient visit 25 minutes Breana Posada FACULTY ADMINISTRATOR Work Phone: [facility] Comment on above: Acute cough (Primary Dx); Bronchitis Start: 09-09-2024 End: 09-09-2024 ambulatory BREANA POSADA Not Available Start: 09-13-2022 End: 09-15-2022 Evaluation and management of inpatient MD Helio Florian Work Phone: [facility] Start: 09-12-2022 End: 09-13-2022 ambulatory TAL IQBAL Facility:[facility] Start: 10-19-2021 End: 10-19-[address] HELIO FLORIAN Facility:[facility] Start: 10-03-2021 End: 10-03-[address] HELIO FLORIAN Facility:[facility] Start: 09-30-2021 End: 09-30-[address] SUMI DURON Facility:[facility] Procedures Date Procedure Procedure Detail Performing Clinician Start: 05-15-2025 Urnls dip stick/tabl et rgnt non-auto w/o micrscp Renee Chary DO Work Phone: Start: 04-23-2025 [facility] PREG QUANT HCG Core [...] Patient encounter procedure [facility] Start: 06-15-2025 End: 06-15-2025 Patient encounter procedure 06/15/2025 10:40 AM EDT Routine [facility] [address] [address] CharyRenee, DO [address] [place] [address] [facility] Start: 06-01-2025 [facility] Start: 05-15-2025 End: 05-15-2026 ABO/Rh ABO/Rh Lab Routine Missed menses , unspecified gestational age ([facility]) Expected: 05/15/2025 (Approximate), Expires: 05/15/2026 [facility] Comment on above: Expected: 05/15/2025 (Approximate), Expires: 05/15/2026 Start: 05-15-2025 End: 05-15-2026 Blood type and Indirect antibody screen panel - Blood Type and screen Lab Routine Missed menses , unspecified gestational age ([facility]) Expected: 05/15/2025 (Approximate), Expires: 05/15/2026 [facility] Comment on above: Expected: 05/15/2025 (Approximate), Expires: 05/15/2026 Start: 05-15-2025 End: 05-15-2026 Drugs of abuse panel - Urine by Screen method Rapid drug screen, urine Lab Routine , unspecified gestational age ([facility]) Encounter for supervision of normal first in first trimester ([facility]) Expected: 05/15/2025 (Approximate), Expires: 05/15/2026 [facility] Comment on above: Expected: 05/15/2025 (Approximate), Expires: 05/15/2026 Start: 05-15-2025 End: 05-15-2025 ambulatory 05/15/2025 10:00 AM EDT Initial [facility] [address] [place] [address] [facility] Start: 05-15-2025 End: 05-15-2025 Professional / ancillary services management 05/15/2025 9:30 AM EDT Ancillary Procedure [facility] [address] [place] [id number] [facility] Start: 05-06-2025 End: 08-06-2025 US Pelvis transvaginal US OB transvaginal Imaging Routine Missed menses Positive urine test ([facility]) Expected: 05/06/2025, Expires: 08/06/2025 [facility] Work Phone: Comment on above: Expected: 05/06/2025 , Expires: 08/06/2025 Start: 03-24-2025 End: 03-24-2025 Professional / ancillary services management 03/24/2025 10:00 AM EDT Ancillary Procedure [facility] [address] [place] [id number] [facility] Start: 03-23-2025 End: 03-23-2026 Antimullerian hormone (AMH) Antimullerian hormone (AMH) Lab Routine Female infertility PCOS (polycystic ovarian syndrome) Expected: 03/23/2025, Expires: 03/23/2026 [facility] Comment on above: Expected: 03/23/2025 , Expires: 03/23/2026 Start: 03-23-2025 End: 03-23-2026 CBC W Auto Differential panel - Blood CBC and differential Lab Routine Female infertility PCOS (polycystic ovarian syndrome) Expected: 03/23/2025 (Approximate), Expires: 03/23/2026 [facility] Comment on above: Expected: 03/23/2025 (Approximate), Expires: 03/23/2026 Start: 03-23-2025 End: 03-23-2026 DHEA DHEA Lab Routine Female infertility PCOS (polycystic ovarian syndrome) Expected: 03/23/2025, Expires: 03/23/2026 [facility] Comment on above: Expected: 03/23/2025 , Expires: 03/23/2026 Start: 03-23-2025 End: 03-23-2026 DHEA-sulfate DHEA-sulfate Lab Routine Female infertility PCOS (polycystic ovarian syndrome) Expected: 03/23/2025 (Approximate), Expires: 03/23/2026 [facility] Comment on above: Expected: 03/23/2025 (Approximate), Expires: 03/23/2026 Start: 03-23-2025 End: 03-23-2026 Follicle stimulating hormone Follicle stimulating hormone Lab Routine Female infertility PCOS (polycystic ovarian syndrome) Expected: 03/23/2025 (Approximate), Expires: 03/23/2026 [facility] Comment on above: Expected: 03/23/2025 (Approximate), Expires: 03/23/2026 Start: 03-23-2025 End: 03-23-2026 hCG, quantitative, hCG, quantitative, Lab Routine Female infertility PCOS (polycystic ovarian syndrome) Expected: 03/23/2025 (Approximate), Expires: 03/23/2026 [facility] Work Phone: Comment on above: Expected: 03/23/2025 (Approximate), Expires: 03/23/2026 Start: 03-23-2025 End: 03-23-2026 Hemoglobin A1c/Hemoglobin.total in Blood Hemoglobin A1c Lab Routine Female infertility PCOS (polycystic ovarian syndrome) Expected: 03/23/2025 (Approximate), Expires: 03/23/2026 [facility] Comment on above: Expected: 03/23/2025 (Approximate), Expires: 03/23/2026 Start: 03-23-2025 End: 03-23-2026 Luteinizing hormone Luteinizing hormone Lab Routine Female infertility PCOS (polycystic ovarian syndrome) Expected: 03/23/2025 (Approximate), Expires: 03/23/2026 [facility] Comment on above: Expected: 03/23/2025 (Approximate), Expires: 03/23/2026 Start: 03-23-2025 End: 03-23-2026 Thyrotropin [Units/volume] in Serum or Plasma TSH Lab Routine Female infertility PCOS (polycystic ovarian syndrome) Expected: 03/23/2025 (Approximate), Expires: 03/23/2026 [facility] Comment on above: Expected: 03/23/2025 (Approximate), Expires: 03/23/2026 Start: 03-23-2025 End: 03-23-2026 Thyroxine (T4) free [Mass/volume] in Serum or Plasma T4, free Lab Routine Female infertility PCOS (polycystic ovarian syndrome) Expected: 03/23/2025 (Approximate), Expires: 03/23/2026 [facility] Comment on above: Expected: 03/23/2025 (Approximate), Expires: 03/23/2026 Start: 03-23-2025 End: 03-23-2026 US Pelvis US Pelvis w/ TV Imaging Routine Female infertility PCOS (polycystic ovarian syndrome) Expected: 03/23/2025, Expires: 03/23/2026 [facility] Comment on above: Expected: 03/23/2025 , Expires: 03/23/2026 Start: 06-01-2024 Influenza vaccination Influenza Vacc ine (#1) [facility] Start: 09-15-2022 [facility] Start: 09-13-2022 Hospital admission [facility] Bacteria identified in Urine by Culture Urine culture Microbiology Routine Missed menses Ordered: 05/15/2025 [facility] Comment on above: Ordered: 05/15/2025 CBC W Auto Different ial panel - Blood CBC and differential Lab Routine Missed menses , unspecified gestational age ([facility]) Ordered: 05/15/2025 [facility] Comment on above: Ordered: 05/15/2025 hCG, quantitative, hCG, quantitative, Lab Routine Possible Amenorrhea Ordered: 04/19/2025 [facility] Comment on above: Ordered: 04/19/2025 hCG, serum, qualitative hCG, ser um, qualitative Lab Routine Possible Amenorrhea Ordered: 04/19/2025 [facility] Work Phone: Comment on above: Ordered: 04/19/2025 Hemoglobin A1c/Hemoglobin.total in Blood Hemoglobin A1c Lab Routine Missed menses , unspecified gestational age ([facility]) Ordered: 05/15/2025 [facility] Comment on above: Ordered: 05/15/2025 Hepatitis B virus surface Ag [Presence] in Serum or Plasma by Immunoassay Hepatitis B surface antigen Lab Routine Missed menses , unspecified gestational age (HHS-HCC) Ordered: 05/15/2025 [facility] Comment on above: Ordered: 05/15/2025 Hepatitis C virus Ab [Presence] in Serum or Plasma by Immunoassay Hepatitis C antibody Lab Routine Missed menses , unspecified gestational age (HHS-HCC) Ordered: 05/15/2025 [facility] Comment on above: Ordered: 05/15/2025 HIV-1/HIV-2 antigen/antibody combination immunoassay HIV-1 and HIV-2 antibodies Lab Routine Missed menses , unspecified gestational age (HHS-HCC) Ordered: 05/15/2025 [facility] Comment on above: Ordered: 05/15/2025 Patient Education Bipolar Disord er (DC) [facility] [place] [facility] [place] Instructions [facility] Work Phone: Patient referral [facility] Work Phone: Progesterone Progesterone Lab Routine Female infertility PCOS (polycystic ovarian syndrome) Ordered: 03/23/2025 [facility] Comment on above: Ordered: 03/23/2025 Reagin Ab [Presence] in Serum by RPR RPR Lab Routine Missed menses , unspecified gestational age (HHS-HCC) Ordered: 05/15/2025 [facility] Comment on above: Ordered: 05/15/2025 Rubella antibody, IgG Rubella an tibody, IgG Lab Routine Missed menses , unspecified gestational age (HHS-HCC) Ordered: 05/15/2025 [facility] Comment on above: Ordered: 05/15/2025 US Pelvis transvaginal US OB tra nsvaginal Imaging Routine Missed menses Positive urine test ([facility]) 05/15/2025 10:06 AM EDT [facility] Immunizations Immunization Date Immunization Notes Care Provider Alexus stratton 07-27-2014 influenza virus vacc ine, unspecified formulation Breana Poasda FACULTY ADMINISTRATOR Work Phone: [facility] Payers Date Payer Category Payer Medicaid (Managed Care) [employer] [id number] 2023 Self-pay [id number] 2017 Medicaid [place]ICAID [place] [id number] 2002 Unknown [id number] 2.16.840.1.650286.3.579.2. 593 2002 Unknown [id number] 2.16.840.1.791718.3.579.2. 593 2002 Unknown [id number] 2.16.840.1.055752.3.579.2. 593 2002 Unknown [id number] 2.16.840.1.821106.3.579.2. 593 2002 Unknown [id number] 2.16.840.1.070185.3.579.2. 1259 2002 Unknown [id number] 2.16.840.1.059704.3.579.2. 1259 2002 Unknown [id number] 2.16.840.1.853285.3.579.2. 1259 2002 Unknown [id number] 2.16.840.1.512373.3.579.2. 1259 2002 Unknown [id number] 2.16.840.1.780882.3.579.2. 1259 2002 Unknown [id number] 2.16.840.1.694027.3.579.2. 1259 1959 Medicaid [id number] Unknown [id number] [id number]. 531 Social History Date Type Detail Facility Start: 09-13-2022 Tobacco smoking stat [facility] Smoker (finding) [facility] Start: 2000 Sex Assigned At Female F [facility] Start: 04-05-2023 [facility] Start: 04-05-2023 Tobacco use and exposure Smokeless tobacco non-user [facility] Start: 04-05-2023 End: 05-15-2025 Alcoholic beverage intake Lifetime non-drinker (finding) [facility] Start: 04-05-2023 End: 05-15-2025 History of Social function [facility] Start: 04-05-2023 End: 05-15-2025 Tobacco use panel [facility] Start: 2000 Sex assigned at Not on file [facility] Start: 04-10-2025 [facility] Goals Date Patient Goal Desired Activity /State Functional Status Date Assessment Result Facility 09-15-2022 Functional status Patient at Baseline [facility] Work Phone: Mental Status Date Assessment Result Facility 09-15-2022 Cognitive function Cognitive Sta tus Patient at Baseline [facility] Work Phone: Clinical Notes 09-13-2022 to 05-15-2025 Beata Greenberg MA - 05/15/2025 10:00 AM Nan Cloud NP - 04/19/2025 9:30 AM Priscilla Sutton LPN - 03/23/2025 8:40 AM Patricia Posada NP - 09/09/2024 12:50 PM EST Note Date & Type Note Facility 05-15-2025 History of Presen t illness Narrative Reason for Appointment: Patient ID: Kay Tristan [...] Vitals: Estimated body mass index is 53.52 kg/m as calculated from the following: Height [...] urinalysis dipstick manually resulted Positive urine test ([facility]) - OB transvaginal; Future Amenorrhea 7 weeks gestation of ([facility]) Bipolar affective disorder, remission status unspecified (HCC) Borderline personality disorder (HCC) , unspecified gestational age ([facility]) - Type and screen; Future - ABO/Rh; Future - CBC and differential - Hemoglobin A1c - RPR - Rubella antibody, IgG - Hepatitis B surface antigen - Hepatitis C antibody - HIV-1 and HIV-2 antibodies - Rapid drug screen, urine; Future Encounter for supervision of normal first in first trimester ([facility]) - Rapid drug screen, urine; Future Nurse Note: Pt desires [place] billion to one. Pt was advised she has to be 9 weeks gestation in order to have [place] drawn along w/ labs. PVU. Pt is [...] Beata Greenberg MA documented in this encounter [facility] 04-19-2025 History of Presen t illness Narrative [...] Additional Comments: Want blood labs sent to [facility] ROS: A complete system ROS [...] PRN/gynecology if applicable. documented in this encounter [facility] 03-23-2025 History of Presen t illness Narrative [...] nursing note reviewed. Exam conducted with a credit card specialist present. Vitals: Estimated body mass index is [...] Renee Diez DO documented in this encounter [facility] 09-09-2024 History of Presen t illness Narrative Images from the original note were not included. [address] , [address] [facility], [address] P: [phone] F: [phone] HPI Historian of HPI: patient Alexia Tristan [...] Left Turbinates: Enlarged and swollen. Mouth/Throat: Lips: [place]. Mouth: Mucous membranes are moist. Pharynx: Oropharynx [...] capsule; Refill: 0 documented in this encounter [facility] 09-15-2022 Discharge summary Note Date/Time September 15, 2022 10:25am [facility] [address] [place] [address] Discharge Summary Signed Patient: Kay Busch MR#: [id number] : 2000 Acct:[id number] Age/Sex: 22 / F Adm Date: 2 Loc: Room: 1L8435-[address]: Param Rao MD Copies to: [...] No activity restrictions. 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 (insert date/time [...] signed by Param Rao MD> 09/15/22 1037 [facility] Work Phone: 1(900) 485-137312-15-2022 Progress note Author Param Rao [facility] September 14, 2022 12:20pm Note Date/Time September 14, 2022 12:20pm [facility] [address] [place] [address] Psychiatry Progress Note Signed Patient: Kay Busch MR#: [id number] : 2000 Acct:[id number] Age/Sex: 22 / F Adm Date: 2 Loc: Room: 5Y7637-4 Type : ADM IN Attending Dr: Param [...] signed by Param Rao MD> 09/14/22 1220 [facility] Work Phone: 1(486) 565-861112-14-2022 History and physical note Author Param Rao [facility] September 13, 2022 12:48pm Note Date/Time September 13, 2022 12:48pm [facility] [address] [place] [address] Psychiatry H&P Signed Patient: Kay Busch MR#: [id number] : 2000 Acct:[id number] Age/Sex: 22 / F Adm Date: 2 Loc: Room: [address] [place] [address] Type: ADM IN Attending Dr: Param Rao [...] signed by Param Rao MD> 09/13/22 1248 [facility] Work Phone: Evaluation note* Diagnosis Onset Date Resolution Status Bipolar disorder acute [facility] Work Phone: Evaluation note* Diagnosis Acute cough- Primary Bronchitis Bronchitis, not specified as acute or chronic [facility] Diagnosis Female infertility Female infertility of unspecified origin PCOS (polycystic ovarian syndrome) Polycystic ovaries [facility] Diagnosis Possible - Primary Amenorrhea Absence of menstruation [facility] Diagnosis Missed menses Positive urine test ([facility]) Amenorrhea Absence of menstruation 7 weeks gestation of ([facility]) Bipolar affective disorder, remission status unspecified (HCC) Borderline personality disorder (HCC) Borderline personality disorder , unspecified gestational age ([facility]) Encounter for supervision of normal first in first trimester ([facility]) [facility] Additional Instructions Regular diet. No activity restrictions.[facility] Work Phone: Chief Complaint and Reason [...] Helio Florian MD Primary Care Provider Active Orthopedic Dentist Relationship Specialty Start Date End Date Helio Florian MD [address] [place] [address] PCP - General Family Medicine 04/05/23 Orthopedic Dentist Relationship Specialty Start Date End Date Helio Florian MD [address] [place] [address] PCP - General Family Medicine 04/05/23 Orthopedic Dentist Relationship Specialty Start Date End Date Helio Florian MD [address] [place] [address] PCP - General Family Medicine 04/05/23 Orthopedic Dentist Relationship Specialty Start Date End Date Helio Florian MD [address] [place] [address] PCP - General Family Medicine 04/05/23 Orthopedic Dentist Relationship Specialty Start Date End Date Helio Florian MD [address] [place] [address] PCP - General Family Medicine 04/05/23 Orthopedic Dentist Relationship Specialty Start Date End Date Helio Florian MD [address] [place] [address] PCP - General Family Medicine 04/05/23 Breana Posada NP [address] [place] [address] [id number] PCP - [facility] 12/30/2408/30 Orthopedic Dentist Relationship Specialty Start Date End Date Helio Florian MD [address] [place] [address] PCP - General Family Medicine 04/05/23 Breana Posada NP [address] [place] [address] PCP - [facility] 12/30/2408/30 INFORMATION SOURCE (unrecogn ized section and content) DATE CREATED AUTHOR 09/21/2022 [facility] DATE CREATED AUTHOR AUTHOR'S ORGANIZ ATION 04/17/2025 [facility] DATE CREATED AUTHOR AUTHOR'S ORGANIZ ATION 05/20/[address] [facility] EPIC Reason for Visit (unrecogniz ed section and content) Reason Comments Infertility Reason Comments Amenorrhea FOR RECORDS PERTAINING TO PATIENTS WHO ARE [...] BE BASED ON THE PRIMARY CLINICAL RECORDS. [facility] [employer] [place] [facility]. provides no warranty or guarantee of the accuracy or completeness of information in this document.
[2025-05-29 13:48] LABS: Hematocrit 36.5 % (36.0-48.0); Hemoglobin 12.9 g/dL (12.0-16.0); Immature Granulocytes Abs Auto 0.04 10^3/uL (0.00-0.03); Immature Granulocytes Pct Auto 0.4 % (0.0-0.5); Lymphocytes Absolute Auto 3.2 10^3/uL (1.2-3.8); Mean Corpuscular HGB Conc 35.3 g/dL (29.9-35.2); Mean Corpuscular Hemoglobin 30.4 pg (26.7-34.0); Mean Corpuscular Volume 86.1 fL (81.0-99.0); Platelet Count 271 10^3/uL (150-450); Red Blood Count 4.24 10^6/uL (4.20-5.40); White Blood Count 11.3 10^3/uL (4.0-11.0)
[2025-05-29 14:02] LABS: Cannabinoid Screen Urine POSITIVE (NEGATIVE); Methamphetamines Screen Urine NEGATIVE (NEGATIVE); Tricyclic Antidepressant Urine POSITIVE (NEGATIVE)
[2025-05-30 07:09] LABS: Rubella Antibodies, IgG 1.03 index (Immune >0.99)
[2025-05-30 12:08] LABS: Rapid Plasma Reagin, Quant Non Reactive titer (NonRea<1:1)
== END 2025-05-29 12:51 | disposition home or self-care (01) ==
LOC: LAB 12:51
PROVIDERS: PCP Nurse Practitioner Family; Visit Provider Obstetrics & Gynecology
DX: Z34.01 Encounter for supervision of normal first pregnancy, first trimester (principal); N92.6 Irregular menstruation, unspecified
CPT/HCPCS: 36415; 80307; 80337; 80349; 83036; 85025; 86592; 86762; 86803; 86850; 86900; 86901; 87086; 87340; 87389

== ENCOUNTER 2025-05-29 18:42 | Emergency (ER) | payer OTHER, SELFPAY ==
--- OUTSIDE RECORDS SUMMARY | 2025-05-15 09:30 | XMS_ITS | Encounter Summary ---
Author Organization [facility] Address [address] [place] [address] Care Team Providers Care Sterilization Tech Name Role Phone Helio Campos MD Primary Care Provider [phone] Breana Loving HOSPICE PLAN ADMINISTRATOR Unavailable [phone] Encounter Details Date Type Department Care Team (Latest Contact Info) Description 05/15/2025 9:30 AM EDT Ancillary Procedure [facility] [address] [place] [address] Missed menses; Positive urine test ([facility]) Social History Tobacco Use Types Packs/Day Years Used Date Smoking Tobacco: Never Smokeless Tobacco: Never Alcohol Use Standard Drinks/Week Comments Never 0 (1 standard drink = 0.6 oz pur e alcohol) Estimated Date of Delivery Comme nts Yes 01/01/2026 Based on Ultraso und Sex and Gender Information Value Date Recorded Sex Assigned at Not on file Legal Sex Female 11:46 PM EDT Gender Identity Not on file Sexual Orientation Not on file documented as of this encounter Plan of Treatment Upcoming Encounters Date Type Department Care Team (Late st Contact Info) Description 06/15/2025 10:40 AM EDT Routine [facility] [address] [place] [address] Cuong Diez DO [address] [place], [place] [id number] documented as of this encounter Procedures Procedure Name Priority Date/Time Associated Diagnosis Comments US OB TRANSVAGINAL Routine 05/15/2025 10 :06 AM EDT Missed menses Positive urine test ([facility]) documented in this encounter Results * US OB transvaginal (05/15/2025 10:06 AM EDT) Anatomical Region Laterality Modality Body Ultrasound 05/18/2025 2:44 PM EDT Impressions 05/19/2025 9:07 AM EDT Findings consistent with a live intrauterine gestation, current sonographic age of 7 weeks and 0 days resulting in an estimated date of delivery of January 01, 2026. TRANSCRIBED BY: ELECTRONICALLY SIGNED BY: Hunter Huffman MD Narrative 05/19/2025 9:07 AM EDT FINDINGS: A single intrauterine gestational sac is present. No subchorionic hemorrhage. A single pole is present. Normal heart rate at 141 beats per minute. Yolk sac also is seen. Current sonographic age is 7 weeks and 0 days based on the crown-rump length measurement of 10 mm. Based on this age, current estimated date of delivery is January 01, 2026. No pelvic fluid or adnexal mass present. Closed cervix. Procedure Note Hunter Huffman MD - 05/19/2025 FINDINGS: A single intrauterine gestational sac is present. No subchorionichemorrhage. A single pole is present. Normal heart rate at141 beats per minute. Yolk sac also is seen. Current sonographic age is7 weeks and 0 days based on the crown-rump length measurement of 10 mm.Based on this age, current estimated date of delivery is January 01, 2026.No pelvic fluid or adnexal mass present. Closed cervix. IMPRESSION: Findings consistent with a live intrauterine gestation, currentsonographic age of 7 weeks and 0 days resulting in an estimated date ofdelivery of January 01, 2026. TRANSCRIBED BY: ELECTRONICALLY SIGNED BY: Hunter Huffman MD us Cuong Chary LIANG IM OB US PROCEDURES Final Resul t documented in this encounter Visit Diagnoses Diagnosis Missed menses Positive urine test ([facility]) documented in this encounter Care Teams Sterilization Tech Relationship Specialty Start Date End Date Helio Campos MD [address] [place] [address] PCP - General Family Medicine 04/05/23 Breana Loving NP [address] [place] [address] PCP - [facility] 12/30/2408/30 documented as of this encounter
--- OUTSIDE RECORDS SUMMARY | 2025-05-15 10:00 | XMS_ITS | Encounter Summary ---
Author Organization [facility] Address [address] [place] [address] Care Team Providers Care Amusement Park Ride Mechanic Name Role Phone Helio Campos MD Primary Care Provider [phone] Breana Loving ELECTRONIC DEVICE MONITOR Unavailable Reason for Visit * Reason Comments Amenorrhea Encounter Details Date Type Department Care Team (Late st Contact Info) Description 05/15/2025 10:00 AM EDT Initial [facility] [address] [place] [address] [place] [id number] GA: 7w0d Social History Tobacco Use Types Packs/Day Years Used Date Smoking Tobacco: Never Smokeless Tobacco: Never Tobacco Cessation:Counseling Given: Not Answered Alcohol Use Standard Drinks/Week Comments Never 0 (1 standard drink = 0.6 oz pur e alcohol) Estimated Date of Delivery Comme nts Yes 01/01/2026 Based on Ultraso und Sex and Gender Information Value Date Recorded Sex Assigned at Not on file Legal Sex Female 11:46 PM EDT Gender Identity Not on file Sexual Orientation Not on file documented as of this encounter Last Filed Vital Signs Vital Sign Reading Time Taken Comments Blood Pressure 124/74 05/15/2025 10:37 AM EDT Pulse - - Temperature - - Respiratory Rate - - Oxygen Saturation - - Inhaled Oxygen Concentration - - Weight 120 kg (265 lb) 05/15/2025 10:37 AM EDT Height - - Body Mass Index 53.52 03/23/2025 9:02 AM EDT documented in this encounter Progress Notes * Beata Greenberg MA - 05/15/2025 10:00 AM EDT Reason for Appointment: Patient ID: Kay Tristan is a 24 y.o. female who presents for Amenorrhea Patient presents today for a Nurse OB Intake appointment. Patient is 7w0d with a Estimated Date of Delivery: 01/01/26 OB History Para Term AB Living 1 SAB IAB Ectopic Multiple Live Births # Outcome Date GA Lbr Naresh/2nd Weight Sex Type Anes PTL Lv 1 Current Current Medications: has a current medication list which includes the following prescription(s): quetiapine and zoloft. Medical History: Active Ambulatory Problems Diagnosis Date Noted Bipolar disorder (HCC) 05/15/2025 Borderline personality disorder (HCC) 05/15/2025 Resolved Ambulatory Problems Diagnosis Date Noted No Resolved Ambulatory Problems Past Medical History: Diagnosis Date Bipolar 1 disorder (HCC) No family history on file. Social History Tobacco Use Smoking status: Never Smokeless tobacco: Never Vaping Use Vaping status: Every Day Substance Use Topics Alcohol use: Never Drug use: Yes Frequency: 7.0 times per week Types: Marijuana Comment: everyday History reviewed. No pertinent surgical history. No Known Allergies Vitals: Estimated body mass index is 53.52 kg/m?? as calculated from the following: Height as of 03/23/25: 4' 11 . Weight as of this encounter: 265 lb. BP: 124/74 Patient's last menstrual period was 03/21/2025. Assessment/Plan Diagnoses and all orders for this visit: Missed menses - US OB transvaginal; Future - Type and screen; Future - ABO/Rh; Future - CBC and differential - Hemoglobin A1c - RPR - Rubella antibody, IgG - Hepatitis B surface antigen - Hepatitis C antibody - HIV-1 and HIV-2 antibodies - Urine culture - POCT , urine manually resulted - POCT urinalysis dipstick manually resulted Positive urine test ([facility]) - US OB transvaginal; Future Amenorrhea 7 weeks gestation of ([facility]) Bipolar affective disorder, remission status unspecified (HCC) Borderline personality disorder (HCC) , unspecified gestational age ([facility]) - Type and screen; Future - ABO/Rh; Future - CBC and differential - Hemoglobin A1c - RPR - Rubella antibody, IgG - Hepatitis B surface antigen - Hepatitis C antibody - HIV-1 and HIV-2 antibodies - Rapid drug screen, urine; Future Encounter for supervision of normal first in first trimester ([facility]) - Rapid drug screen, urine; Future Nurse Note: Pt desires [place] billion to one. Pt was advised she has to be 9 weeks gestation in order to have [place] drawn along w/ labs. PVU. Pt is currently a vape smoker and a marijuana smoker. Pt stated she is trying to quit however, its hard doing it cold turkey. Pt was seen in the ER due to bleeding in and since then no more bleeding has occurred. Follow Up: Patient is to have labs drawn at directed and return to office for initial OB appointment with provider. Patient may call office as needed with any concerns or questions. Nurse Visit Completed by: Beata Greenberg MA documented in this encounter Plan of Treatment Upcoming Encounters Date Type Department Care Team (Late st Contact Info) Description 06/15/2025 10:40 AM EDT Routine [facility] [address] [place] [phone] Cuong Diez DO [address] [place] [address] Scheduled Orders Name Type Priority Associated Diagnoses Orde r Schedule Type and screen Lab Routine Missed menses , unspecified gestational age ([facility]) Expected: 05/15/2025 (Approximate), Expires: 05/15/2026 ABO/Rh Lab Routine Missed menses , unspecified gestational age ([facility]) Expected: 05/15/2025 (Approximate), Expires: 05/15/2026 CBC and differential Lab Routine Missed menses , unspecified gestational age ([facility]) Ordered: 05/15/2025 Hemoglobin A1c Lab Routine Missed menses , unspecified gestational age ([facility]) Ordered: 05/15/2025 RPR Lab Routine Missed menses , unspecified gestational age ([facility]) Ordered: 05/15/2025 Rubella antibody, IgG Lab Routine Missed menses , unspecified gestational age ([facility]) Ordered: 05/15/2025 Hepatitis B surface antigen Lab Routine Missed menses , unspecified gestational age ([facility]) Ordered: 05/15/2025 Hepatitis C antibody Lab Routine Missed menses , unspecified gestational age ([facility]) Ordered: 05/15/2025 HIV-1 and HIV-2 antibodies Lab Routine Missed menses , unspecified gestational age ([facility]) Ordered: 05/15/2025 Urine culture Microbiology Routine Missed menses Ordered: 05/15/2025 Rapid drug screen, urine Lab Routine , unspecified gestational age ([facility]) Encounter for supervision of normal first in first trimester ([facility]) Expected: 05/15/2025 (Approximate), Expires: 05/15/2026 documented as of this encounter Procedures Procedure Name Priority Date/Time Associated Diagnosis Comments POCT , URINE Routine 05/15/2025 10:10 AM EDT Missed menses POCT URINALYSIS DIPSTICK Routine 05/15/2025 10:10 AM EDT Missed menses documented in this encounter Results * POCT urinalysis dipstick manually resulted (05/15/2025 10:10 AM EDT) Color, UA Yellow Clarity, UA Clear Glucose, UA Negative Negative - 2000(110) ++++ mg/dL Bilirubin, UA Negative Negative - 4(70) +++ mg/dL Ketones, UA Negative Negative - 160(16) ++++ mg/dL Spec Grav, UA 1.015 1 - 1.03 Blood, UA Negative Negative - 50 Yogesh/mcL pH, UA 6.0 5 - 9 Protein, UA Negative Negative - 2000(20) ++++ mg/dL Urobilinogen, UA 1.0 0.2 - 12 mg/dL Leukocytes, UA Negative Negative - 500+++ Jaci/mcL Nitrite, UA Negative Negative - Positive Urine 05/15/2025 10:1 0 AM EDT Cuong Doniso DO POINT OF CARE TEST ENTER/EDIT OR DERABLES Final Result * (ABNORMAL) POCT , urine manually resulted (05/15/2025 10:10 AM EDT) Preg Test, Ur Positive Negative Urine 05/15/2025 10:1 0 AM EDT us Cuongvish Diez DO POINT OF CARE TEST ENTER/EDIT OR DERABLES Final Result * US OB transvaginal (05/15/2025 10:06 AM [...] SIGNED BY: Hunter Huffman MD us Cuong Diez DO IMG OB US PROCEDURES Final Resul t documented in this encounter Visit Diagnoses Diagnosis Missed menses Positive urine test ([facility]) Missed menses Positive urine test ([facility]) Amenorrhea Absence of menstruation 7 weeks gestation of ([facility]) Bipolar affective disorder, remission status unspecified (HCC) Borderline personality disorder (HCC) Borderline personality disorder , unspecified gestational age ([facility]) Encounter for supervision of normal first in first trimester ([facility]) documented in this encounter Care Teams Amusement Park Ride Mechanic Relationship Specialty Start Date End Date Helio Campos MD [address] [place] [address] PCP - General Family Medicine 04/05/23 Breana Loving NP [address] [place] [address] PCP - [facility] [place] 12/30/2408/30 documented as of this encounter
[2025-05-29 18:59] VITALS: BP 156/86; PULSE 91; TEMP 36.1; O2SAT 98; BMI 52.5
--- OUTSIDE RECORDS SUMMARY | 2025-05-29 19:27 | XMS_ITS | Encounter Summary ---
Author Organization [facility] Address [address] [place] [address] Care Team Providers Care Computer Help Desk Representative Name Role Phone Helio Campos MD Primary Care Provider [phone] Breana Loving SOCCER BALL ASSEMBLER Unavailable [phone] Encounter Details Date Type Department Care Team (Late Contact Info) Description 05/29/2025 Clinisync Result Encounter [facility] Department Unsolicited Columba Temple, RADHA [address] [place] [address] Social History Tobacco Use Types Packs/Day Years [...] Encounters Date Type Department Care Team (Late Contact Info) Description 06/15/2025 10:40 AM EDT Routine [facility] NIELSEN [address] [address] Cuong Diez DO [address] [place], [place] [id number] documented as of this encounter Procedures Procedure Name Priority Date/Time Associated Diagnosis Comments BOX TEST Routine 05/29/2025 1:30 PM EDT MLR HEMOGLOBIN A1C Routine 05/29/2025 1: 30 PM EDT [facility] ANTIBODY ID Routine 05/29/2025 1:30 PM EDT ALL TYPE AND SCREEN Routine 05/29/2025 1 :30 PM EDT ALL CBC WITH AUTO DIFF Routine 05/29/2025 1:30 PM EDT [facility] DRUG SCREEN RAPID (URINE) Routine 05/29/2025 12:58 PM EDT documented in this encounter Results * MLR HEMOGLOBIN A1C (05/29/2025 1:30 PM EDT) Pathologist [facility] GLYCOHEMOGLOBIN A1C 4.9 4.5 - 6.2 % [facility] Comment: ADA RECOMMENDED LIMIT 4.0 - 6.0 ADA THERAPEUTIC TARGET < 7.0 ACTION SUGGESTED > 7.0 ESTIMATED AVERAGE GLUCOSE 94 mg/dL [facility] 05/29/2025 1:30 PM EDT 05/29/2025 1:38 PM EDT Narrative CLINIS[facility] - 05/29/2025 2:52 PM EDT Cuong Chary DO CLINISYNC Final Result [facility] * [facility] ANTIBODY ID (05/29/2025 1:30 PM EDT) [facility] ANTIBODY ID PANEL D RHIG [facility] Comment: PROBABLE ANTI-D DUE TO RHIG ADMINISTRATION ON 05/14/25. FURTHER WORKUP AT [employer] REQUEST. 05/29/2025 1:30 PM EDT 05/29/2025 1:38 PM EDT Narrative CL[facility]ISYNC - 05/29/2025 2:38 PM EDT [facility] , [place] Cuong Chary DO CLINISYNC Final Result [facility] * ALL TYPE AND SCREEN (05/29/2025 1:30 PM EDT) [facility] BLOOD TYPE B Negative [facility] ANTIBODY SCREEN POSITIVE [facility] 05/29/2025 1:30 PM EDT 05/29/2025 1:38 PM EDT Narrative CLINISYNC - 05/29/2025 2:38 PM EDT [facility] , [facility] Cuong Chary DO CLINISYNC Final Result [facility] TB * (ABNORMAL) ALL CBC WITH AUTO DIFF (05/29/2025 1:30 PM EDT) [facility] WBC 11.3(H) 4.0 - 11.0 10 3/uL TBH TBH RBC 4.24 4.20 - 5.40 10 6/uL TBH TBH HGB 12.9 12.0 - 16.0 g/dL TB TB HCT 36.5 36.0 - 48.0 % [facility] TBH MCV 86.1 81.0 - 99.0 fL TBH TBH MCH 30.4 26.7 - 34.0 pg TBH TBH MCHC 35.3(H) 29.9 - 35.2 g/dL TB TB RDW 13.0 11.0 - 15.0 % TBH TBH PLT 271 150 - 450 10 3/uL TBH TBH MPV 9.0(L) 9.5 - 13.5 fL [facility] NEUTROPHILS PERCENT AUTO 61.8 43.0 - 75.0 % [facility] LYMPHOCYTES PERCENT AUTO 28.6 20.5 - 60.0 % [facility] MONOCYTES PERCENT AUTO 7.1 1.7 - 12.0 % [facility]H TBH EO % 1.7 0.9 - 7.0 % TBH BASOPHILS PERCENT AUTO 0.4 0.2 - 2.0 % [facility] IMMATURE GRANULOCYTES PCT AUTO 0.4 0.0 - 0.5 % [facility] NEUTROPHILS ABSOLUTE AUTO 7.0(H) 1.4 - 6.5 10 3/uL TBH LYMPHOCYTES ABSOLUTE AUTO 3.2 1.2 - 3.8 10 3/uL TBH MONOCYTES ABSOLUTE AUTO 0.8 0.3 - 0.8 10 3/uL TBH TBH EO # 0.2 0.0 - 0.7 10 3/uL TBH BASOPHILS ABSOLUTE AUTO 0.1 0.0 - 0.1 10 3/uL [facility] IMMATURE GRANULOCYTES ABS AUTO 0.04(H) 0.00 - 0.03 10 3/uL [facility] 05/29/2025 1:30 PM EDT 05/29/2025 1:38 PM EDT Narrative CLINISYNC - 05/29/2025 1:54 PM EDT Cuong Diez DO [facility] (05/29/2025 1:30 PM EDT) BOX TEST SENT OUT [facility] BOX1 [facility] BOX2 05/29/25 TB 05/29/2025 1:30 PM EDT 05/29/2025 1:38 PM EDT Narrative CLINISYNC - 05/29/2025 1:47 PM EDT Columba Temple SOCCER BALL ASSEMBLER LAB BLOOD ORDERABLES Final Re sult [facility] * (ABNORMAL) TB DRUG SCREEN RAPID (URINE) (05/29/2025 12:58 PM EDT) CANNABINOID SCREEN URINE POSITIVE(A) NEGATIVE TBH PHENCYCLIDINE SCREEN URINE NEGATIVE NEGATIVE TBH COCAINE SCREEN URINE NEGATIVE NEGATIVE TBH METHAMPHETAMINES SCREEN URINE NEGATIVE NEGATIVE TBH OPIATE SCREEN URINE NEGATIVE NEGATIVE TBH AMPHETAMINE SCREEN URINE NEGATIVE NEGATIVE TBH BENZODIAZEPINES SCREEN URINE NEGATIVE NEGATIVE TBH TRICYCLIC ANTIDEPRESSANT URINE POSITIVE(A) NEGATIVE TBH METHADONE SCREEN URINE NEGATIVE NEGATIVE TBH BARBITURATES SCREEN URINE NEGATIVE NEGATIVE TBH OXYCODONE SCREEN URINE NEGATIVE NEGATIVE TBH BUPRENORPHINE SCREEN URINE NEGATIVE NEGATIVE TBH Comment: DRUG CLASS TEST SYSTEM CUT-OFF CONCENTRATIONS ARE FOLLOWS: AMP (Amphetamine): 500 ng/mL BAR (Barbiturates): 200 ng/mL BZO (Benzodiazepines): 150 ng/mL BUP (Buprenorphine): 10 ng/mL JOHN (Cocaine): 150 ng/mL mAMP (Methamphetamine): 500 ng/mL MTD (Methadone): 200 ng/mL OPI (Opiates): 100 ng/mL OXY (Oxycodone): 100 ng/mL PCP (Phencyclidine): 25 ng/mL THC (Cannabinoids): 50 ng/mL TCA (Trycyclic Antidepressants): 300 ng/mL 05/29/2025 12:5 8 PM EDT 05/29/2025 1:38 PM EDT Narrative CLINISYNC - 05/29/2025 2:02 PM EDT us Cuong Chary DO CLINISYNC Final [facility] documented in this encounter Visit Diagnoses Not on filedocumented in this encounter Care Teams Computer Help Desk Representative Relationship Specialty Start Date End Date Helio Campos MD [address] [place] [address] PCP - General Family Medicine 04/05/23 Breana Loving NP [address] [place] [address] PCP - [facility] 12/30/2408/30 documented as of this encounter
--- OUTSIDE RECORDS SUMMARY | 2025-05-29 19:27 | XMS_ITS | CCD ---
Author Organization [facility] Care Team Providers Care Data Entry Assistant Name Role Phone MD Helio Florian Primary Care Provider [phone] MD Param Rao Admit Provider MD Param [...] Unavailable Helio Florian MD Primary Care Provider [phone] Dante Valadez Attending Unavailab Dante Corral Admitting Unavailab Helio Cornejo Primary Care Unavailable Breana Posada NP Unavailable [phone] RENEE DIEZ Attending Unavailable RENEE DIEZ Referring [...] 2022 12:00am QUEtiapine 25 mg oral tablet (6 sources) Atypical Antipsychotic Start: 04-14-2025 take 1 tablet by mouth at bedtime QUEtiapine (SEROquel) 25 MG tablet Take 25 mg by mouth at bedtime 04/14/2025 Active sertraline 25 mg oral tablet (10 sources) Serotonin Reuptake Inhibitor Start: 03-18-2025 take [...] Translations: [Amenorrhea, unspecified] 04-19-2025 Chronic Mood disorders (5 sources) Bipolar disorder; Translations: [Bipolar disorder, unspecified] [...] test, result unknown] 04-19-2025 Episodic Personality disorders (3 sources) Borderline personality disorder; Translations: [Borderline personality [...] 10-05-2021 Episodic Other aftercare (1 source) Other custodial (current) drug therapy; Translations: [OTH 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 CURRENT DRUG THERAPY] Onset: 10-05-2021 Episodic Residual [...] Test Name Value Interpretation Reference Range Facility BOX TESTon 05-29-2025 BOX TEST SENT OUT [facility] BOX1 [facility] BOX2 05/29/25 [facility] HCG ( test) Ql (U)o n 05-15-2025 Interpretation and review of laboratory results Abnormal [facility] Preg Test, Ur Positive Negative Critical [facility] hospital US OB TRANSVAGINALon 025 OB TRANSVAGINAL FINDINGS: A [...] UA Negative Negative - 4(70) +++ mg/dL [facility] Blood, UA Negative Negative - 50 Yogesh/mcL [facility] Clarity, UA Clear [facility] Color, UA Yellow [facility] Glucose, UA Negative Negative - 2000(110) ++++ mg/dL [facility] Interpretation and review of laboratory results Normal [facility] Ketones, UA Negative Negative - 160(16) ++++ mg/dL [facility] Leukocytes, UA Negative Negative - 500+++ Jaci/mcL [facility] Nitrite, UA Negative Negative - Positive [facility] pH, UA 6 5 - 9 [facility] Protein, UA Negative Negative - 2000(20) ++++ mg/dL [facility] Spec Grav, UA 1.015 1 - 1.03 [facility] Urobilinogen, UA 1.0 0.2 - 12 mg/dL [facility] PREG QUANT HCGon 025 HCG QUANTITATIVE 275 mIU/mL [facility] Comment on above: 5-50 0.2-1 WEEK 50-500 1-2 WEEKS 100-5,000 2-3 WEEKS 500-10,000 3-4 WEEKS 1,000-50,000 4-5 WEEKS 10,000-100,000 5-6 WEEKS 15,000-200,000 6-8 WEEKS 10,000-100,000 2-[address] [facility] PREG QUANT HCGon 025 HCG QUANTITATIVE 97 mIU/mL [facility] Comment on above: 5-50 0.2-1 WEEK 50-500 1-2 WEEKS 100-5,000 2-3 WEEKS 500-10,000 3-4 WEEKS 1,000-50,000 4-5 WEEKS 10,000-100,000 5-6 WEEKS 15,000-200,000 6-8 WEEKS 10,000-100,000 2-[address] [facility] HCG ( test) Ql (U)o n 04-19-2025 Interpretation and review of laboratory results Normal [facility] Preg Test, Ur Negative Negative Critical [facility] hospital ALL PROGESTERONEon PROGESTERONE 9.5 ng/mL . [facility] Comment on above: Follicular phase 0.1 - 0.9 Luteal phase 1.8 - 23.9 Ovulation phase 0.1 - 12.0 First trimester 11.0 - 44.3 Second trimester 25.4 - 83.3 Third trimester 58.7 - 214.0 Postmenopausal 0.0 - 0.1 Performed at: [facility] [address] [id number] Engineer Conductor: Ilya Manjarrez PhD, Phone: [phone] [facility] MLR HEMOGLOBIN A1Con 025 Glucose [Mass/Vol] 105 mg/dL [facility] HbA1c (Bld) [Mass fraction] 5.3 % 4.5 - 6.2 % [facility] Comment on above: ADA RECOMMENDED LIMI T 4.0 - 6.0 ADA THERAPEUTIC TARGET < 7.0 ACTION SUGGESTED > 7.0 [facility] US PELVIC COMPLETE W/ TVon 0 03-24-2025 [...] II, MD, PHD at 25-Mar-2025 07:52:19 AM [facility] Normal Not Available Comment on above: Order Comment: US PE LVIS-TRANSVAG IF INDICATED Patient's last menstrual period was 03/21/2025. Cholesterol [Mass/volume] in Serum or PlasmaOrdered By: Param Rao on 09-13-2022 Cholesterol [Mass/Vol] 141 mg/dL 140-200 [facility] Comment on above: Chol less than 200 m g/dl low riskChol 201-239 mg/dl borderline riskChol 240 mg/dl and greater high risk Cholesterol in LDL Calc [Mas s/Vol]Ordered By: Param Rao on 09-13-2022 Cholesterol in LDL [Mass/Vol] 94 mg/dL 0-100 [facility] Comment on above: LDL ATP III CLASSIFI CATIONLDL less than 100 mg/dL OptimalLDL 100-129 mg/dL Near or above optimalLDL 130-159 mg/dL Borderline highLDL 160-189 mg/dL HighLDL greater than 189 mg/dL Very high Cholesterol in VLDL Calc [Ma ss/Vol]Ordered By: Param Rao on 09-13-2022 Cholesterol in VLDL [Mass/Vol] 9 mg/dL [facility] No Panel InformationOrdered By: Param Rao on 09-13-2022 25-Hydroxy Vitamin D Total 11.9 ng/mL 30-100 [facility] Comment on above: VITAMIN D STATUS 25( OH)VITAMIN D RANGE (ng/mL) Deficient <20 Insufficient 20 to <30Sufficient 30 to 100Reference: Zee MF,Sydnee BARRAGAN, Prabhu DOWNS, et al. Evaluation,treatment, and prevention of vitamin D deficiency; an Endocrine Society clinical practice guideline. JCEM. 2010; 96(7):1911-30. Serum or plasma high density lipoprotein (HDL) cholesterol measurementOrdered By: Param Rao on 09-13-2022 Cholesterol in HDL [Mass/Vol] 38 mg/dL 35-85 [facility] Comment on above: HDL CHOL ATP-III CLA SSIFICATION Cardiovascular RiskHDL > or equal to 60 mg/dL LOWHDL < 40 mg/dL HIGH Serum or plasma total choles terol/high density lipoprotein (HDL) cholesterol mass ratOrdered By: Param Rao on 09-13-2022 Cholesterol.total/Chol esterol in HDL [Mass ratio] 3.7 {ratio} <5.0 [facility] TSH DL <= 0.005 mIU/L QnOrde red By: Param Rao on 09-13-2022 TSH Qn 0.81 m[IU]/L 0.45-5.33 [facility] Triglyceride [Mass/volume] i n Serum or PlasmaOrdered By: Param Rao on 09-13-2022 Triglyceride [Mass/Vol] 45 mg/dL 35-149 [facility] Comment on above: TRIG ATP III CLASSIF ICATIONTRIG less than 150 mg/dL NormalTRIG 150-199 mg/dL Borderline highTRIG 200-500 mg/dL High TRIG greater than 500 mg/dL Very highStandard traceable to the Center for Disease Conrtrol and Prevention (CDC) test method. ACETAMINOPHENon 09-12-2022 Acetaminophen [Mass/Vol] ug/mL Critically low 10.0-30.0 [facility] Comment on above: Performed By: #### S ALYC, ACET, CMP #### [facility] [address] [address] [address] Machelle Garcia CBC AUTO DIFFon 09-12-2022 BASO # 0.0 103/ul Normal 0.0-0.1 [facility] Comment on above: Performed By: #### C BC #### [facility] [address] [address] [address] Machelle Garcia Basophils/100 WBC (Bld) 0.4 % Normal 0.2-2.0 [facility] Comment on above: Performed By: #### C BC #### [facility] [address] [address] [address] Machelle Garcia EO # 0.1 103/ul Normal 0.0-0.7 [facility] Comment on above: Performed By: #### C BC #### [facility] [address] [place] [address] Dr. Machelle Garcia Eosinophils/100 WBC (Bld) 0.8 % Critically low 0.9-7.0 [facility] Comment on above: Performed By: #### C BC #### [facility] [address] [place] [address] Dr. Machelle Garcia Erythrocyte distribution width (RBC) [Ratio] 12.4 % Normal 11.0-15.0 [facility] Comment on above: Performed By: #### C BC #### [facility] [address] [place] [address] Dr. Machelle Garcia Hematocrit (Bld) [Volume fraction] 40.4 % Normal 36.0-48.0 [facility] Comment on above: Performed By: #### C BC #### [facility] [address] [place] [address] Dr. Machelle Garcia Hemoglobin (Bld) [Mass/Vol] 14.3 g/dL Normal 12.0-16.0 [facility] Comment on above: Performed By: #### C BC #### [facility] [address] [place] [address] Dr. Machelle Garcia IG # 0.02 10e3/ul Normal 0.00-0.03 [facility] Comment on above: Performed By: #### C BC #### [facility] [address] [place] [address] Dr. Machelle Garcia IG % 0.3 % Normal 0.0-0.5 [facility] Comment on above: Performed By: #### C BC #### [facility] [address] [place] [address] Dr. Machelle Garcia LYMPH # 1.0 103/ul Critically low 1.2-3.8 [facility] Comment on above: Performed By: #### C BC #### [facility] [address] [place] [address] Dr. Machelle Garcia Lymphocytes/100 WBC (Bld) 14.1 % Critically low 20.5-60.0 [facility] Comment on above: Performed By: #### C BC #### [facility] [address] [place] [address] Dr. Machelle Garcia MANUAL DIFF REQ NO Normal [facility] Comment on above: Performed By: #### C BC #### [facility] [address] [place] [address] Dr. Machelle Garcia MCH (RBC) [Entitic mass] 29.7 pg Normal 26.7-34.0 [facility] Comment on above: Performed By: #### C BC #### [facility] [address] [place] [address] Dr. Machelle Garcia MCHC (RBC) [Mass/Vol] 35.4 g/dL Critically high 29.9-35.2 [facility] Comment on above: Performed By: #### C BC #### [facility] [address] [place] [address] Dr. Machelle Garcia MCV (RBC) [Entitic vol] 83.8 fL Normal 81.0-99.0 [facility] Comment on above: Performed By: #### C BC #### [facility] [address] [place] [address] Dr. Machelle Garcia MONO # 0.9 103/ul Critically high 0.3-0.8 [facility] Comment on above: Performed By: #### C BC #### [facility] [address] [place] [address] Dr. Machelle Garcia Monocytes/100 WBC (Bld) 12.6 % Critically high 1.7-12.0 [facility] Comment on above: Performed By: #### C BC #### [facility] [address] [place] [address] Dr. Machelle Garcia NEUT # 5.2 103/ul Normal 1.4-6.5 [facility] Comment on above: Performed By: #### C BC #### [facility] [address] [place] [address] Dr. Machelle Garcia Neutrophils/100 WBC (Bld) 71.8 % Normal 43.0-75.0 [facility] Comment on above: Performed By: #### C BC #### [facility] [address] [address] [address] Machelle Garcia Platelet mean volume (Bld) [Entitic vol] 9.9 fL Normal 9.5-13.5 [facility] Comment on above: Performed By: #### C BC #### [facility] [address] [address] [address] Machelle Garcia PLT 245 103/ul Normal 150-450 [facility] Comment on above: Performed By: #### C BC #### [facility] [address] [address] [address] Machelle Garcia RBC 4.82 106/ul Normal 4.20-5.40 [facility] Comment on above: Performed By: #### C BC #### [facility] [address] [address] [address] Machelle Garcia WBC 7.2 103/ul Normal 4.0-11.0 [facility] Comment on above: Performed By: #### C BC #### [facility] [address] [address] [address] Machelle Garcia DRUG SCREEN RAPID (URINE)on 09-12-2022 AMP Negative Normal NEGATIVE [facility] Comment on above: Performed By: #### D RUGRPD ####[facility] [address] [address]Dr. Machelle Garcia BAR Negative Normal NEGATIVE [facility] Comment on above: Performed By: #### D RUGRPD ####[facility] [address] [id number]. Machelle Garcia BUP Negative Normal NEGATIVE [facility] Comment on above: Performed By: #### D RUGRPD ####[facility] [address] [address]Dr. Machelle Garcia BZO Negative Normal NEGATIVE [facility] Comment on above: Performed By: #### D RUGRPD ####[facility] [address] [id number] Garcia JOHN Negative Normal NEGATIVE [facility] Comment on above: Performed By: #### D RUGRPD ####[facility] [address] [place], [place] [address]Dr. Machelle Garcia CUT-OFFS SEE BELOW Normal [facility] Comment on above: Result Comment: [...] 300 ng/mL Performed By: #### D RUGRPD ####[facility] [address] [place], [place] [address]Dr. Machlele Garcia DRUG CUT HEADER DRUG CLASS TEST SYSTEM CUT-OFF CONCENTRATIONS ARE FOLLOWS: Normal [facility] Comment on above: Performed By: #### D RUGRPD ####[facility] [address] [place], [place] [address]Dr. Machelle Garcia mAMP Negative Normal NEGATIVE [facility] Comment on above: Performed By: #### D RUGRPD ####[facility] [address] [place], [place] [address]Dr. Machelle Garcia MTD Negative Normal NEGATIVE [facility] Comment on above: Performed By: #### D RUGRPD ####[facility] [address] [place], [place] [address]Dr. Machelle Garcia OPI Negative Normal NEGATIVE [facility] Comment on above: Performed By: #### D RUGRPD ####[facility] [address] [place], [place] [address]Dr. Machelle Garcia OXY Negative Normal NEGATIVE [facility] Comment on above: Performed By: #### D RUGRPD ####[facility] [address] [place], [place] [address]Dr. Machelle Garcia PCP Negative Normal NEGATIVE [facility] Comment on above: Performed By: #### D RUGRPD ####[facility] [address] [address]Dr. Machelle Garcia PPX Negative Normal NEGATIVE [facility] Comment on above: Performed By: #### D RUGRPD ####[facility] [address] [address]Dr. Machelle Garcia TCA Negative Normal NEGATIVE [facility] Comment on above: Performed By: #### D RUGRPD ####[facility] [address] [address]Dr. Machelle Garcia THC Positive Abnormal NEGATIVE [facility] Comment on above: Performed By: #### D RUGRPD ####[facility] [address] [address]Dr. Machelle Garcia ER URINE PROFILEon 2 Bilirubin Ql (U) Negative Normal NEGATIVE [facility] Comment on above: Performed By: #### P REGU, ERUR #### [facility] [address] [place] [address] Dr. Machelle Garcia Clarity (U) CLEAR Normal CLEAR [facility] Comment on above: Performed By: #### Jason REGU, ERUR #### [facility] [address] [place] [address] Dr. Machelle Garcia Color (U) LT. YELLOW Normal YELLOW [facility] Comment on above: Performed By: #### Jason REGU, ERUR #### [facility] [address] [address] [address] Machelle TAYLOR A micrscopic examination will be performed if indicated. Normal [facility] Comment on above: Performed By: #### P REGU, ERUR #### [facility] [address] [place] [address] Dr. Machelle Garcia Glucose Ql (U) Negative Normal NEGATIVE [facility] Comment on above: Performed By: #### P REGU, ERUR #### [facility] [address] [place] [address] Dr. Machelle Garcia Hemoglobin Ql (U) Negative Normal NEGATIVE [facility] Comment on above: Performed By: #### P REGU, ERUR #### [facility] [address] [place] [address] Dr. Machelle Garcia Ketones Ql (U) TRACE Abnormal NEGATIVE [facility] Comment on above: Performed By: #### P REGU, ERUR #### [facility] [address] [place] [address] Dr. Machelle Garcia LEUKOCYTES Negative Normal NEGATIVE [facility] Comment on above: Performed By: #### P REGU, ERUR #### [facility] [address] [place] [address] Dr. Machelle Garcia Nitrite Ql (U) Negative Normal NEGATIVE [facility] Comment on above: Performed By: #### P REGU, ERUR #### [facility] [address] [place] [address] Dr. Machelle Garcia pH (U) 5.5 [pH] Normal 5-9 [facility] Comment on above: Performed By: #### P REGU, ERUR #### [facility] [address] [place] [address] Dr. Machelle Garcia SPEC GRAVITY 1.020 Normal 1.005-<=1.02 5 [facility] Comment on above: Performed By: #### P REGU, ERUR #### [facility] [address] [place] [address] Dr. Machelle Garcia UA PROTEIN Negative Normal NEGATIVE/ TRACE [facility] Comment on above: Performed By: #### P REGU, ERUR #### [facility] [address] [place] [address] Dr. Machelle Garcia UR MICRO IND NOT INDICATED Normal [facility] [place] [facility] Comment on above: Performed By: #### P REGU, ERUR #### [facility] [address] [place] [address] Dr. Machelle Garcia Urobilinogen Qn (U) 0.2 {Jeanine'U}/dL Normal 0.2 - 1. 0 [facility] Comment on above: Performed By: #### P REGU, ERUR #### [facility] [address] [address] [address] Machelle Garcia ETHANOL (BLD ALC)on 09-12-20 22 ALC NOTE NOTE: 80 mg/dl is th e legal limit for a blood alcohol level Normal [facility] Comment on above: Performed By: #### E TH ####[facility] [address] [place], [place] [address]ZeDr. Machelle Garcia Ethanol [Mass/Vol] mg/dL Normal [facility] Comment on above: Performed By: #### E TH ####[facility] [address] [place], [place] [address]VmDr. Machelle Garcia URon 09-12-2022 , QUAL Negative Normal NEGATIVE [facility] Comment on above: Performed By: #### P RADHAU, ERUR #### [facility] [address] [address] [address] Machelle Garcia PROF 14(COMP METB)on 022 Albumin [Mass/Vol] 3.9 g/dL Normal 3.4-5.0 [facility] Comment on above: Performed By: #### S ALYC, ACET, CMP #### [facility] [address] [address] [address] Machelle Garcia Albumin/Globulin [Mass ratio] 1.1 {ratio} Normal [facility] Comment on above: Performed By: #### S ALYC, ACET, CMP #### [facility] [address] [address] [address] Machelle Garcia ALP [Catalytic activity/Vol] 89 U/L Normal 46-116 [facility] Comment on above: Performed By: #### S ALYC, ACET, CMP #### [facility] [address] [address] [address] Machelle Garcia ALT [Catalytic activity/Vol] 19 U/L Normal 14-59 [facility] Comment on above: Performed By: #### S ALYC, ACET, CMP #### [facility] [address] [address] [address] Machelle Garcia Anion gap [Moles/Vol] 12.1 mmol/L Normal [facility] Comment on above: Performed By: #### S ALYC, ACET, CMP #### [facility] [address] [place] [address] Dr. Machelle Garcia AST [Catalytic activity/Vol] 16 U/L Normal 15-37 [facility] Comment on above: Performed By: #### S ALYC, ACET, CMP #### [facility] [address] [place] [address] Dr. Machelle Garcia Bilirubin [Mass/Vol] 0.4 mg/dL Normal 0.2-1.0 [facility] Comment on above: Performed By: #### S ALYC ACET, CMP #### [facility] [address] [place] [address] Dr. Machelle Garcia Calcium [Mass/Vol] 9.0 mg/dL Normal 8.5-10.1 [facility] Comment on above: Performed By: #### S ALYC ACET, CMP #### [facility] [address] [place] [address] Dr. Machelle Garcia Chloride [Moles/Vol] 104 mmol/L Normal 98-107 [facility] Comment on above: Performed By: #### S ALYC ACET, CMP #### [facility] [address] [place] [address] Dr. Machelle Garcia CO2 [Moles/Vol] 25.5 mmol/L Normal 21.0-32.[address] [facility] Comment on above: Performed By: #### S ALYC, ACET, CMP #### [facility] [address] [place] [address] Dr. Machelle Garcia Creatinine [Mass/Vol] 0.86 mg/dL Normal 0.55-1.02 [facility] Comment on above: Performed By: #### S ALYC, ACET, CMP #### [facility] [address] [place] [address] Dr. Machelle Garcia EGFR-AF GRENADIAN >60 Normal >=[address] [facility] Comment on above: Performed By: #### S ALYC, ACET, CMP #### [facility] [address] [place], [place] [id number] Dr. Machelle Garcia EGFR-NON AF GRENADIAN >60 Normal >=60 [facility] Comment on above: Performed By: #### S ALTOSHA ACET, CMP #### [facility] [address] [address] [address] Machelle Garcia Globulin (S) [Mass/Vol] 3.4 g/dL Normal [facility] Comment on above: Performed By: #### S ALTOSHA ACET, CMP #### [facility] [address] [address] [address] Machelle Garcia Glucose [Mass/Vol] 102 mg/dL Normal 74-106 [facility] Comment on above: Performed By: #### S ALTOSHA ACET, CMP #### [facility] [address] [place] [address] Dr. Machelle Garcia Potassium [Moles/Vol] 3.6 mmol/L Normal 3.5-5.1 [facility] Comment on above: Performed By: #### S ALTOSHA ACET, CMP #### [facility] [address] [place] [address] Dr. Machelle Garcia Protein [Mass/Vol] 7.3 g/dL Normal 6.4-8.2 [facility] Comment on above: Performed By: #### S KENNA ACET, CMP #### [facility] [address] [place] [address] Dr. Machelle Garcia Sodium [Moles/Vol] 138 mmol/L Normal 136-145 [facility] Comment on above: Performed By: #### S ALYC ACET, CMP #### [facility] [address] [place] [address] Dr. Machelle Garcia Urea nitrogen [Mass/Vol] 10.0 mg/dL Normal 7.0-18.0 [facility] Comment on above: Performed By: #### S ALYC ACET, CMP #### [facility] [address] [place] [address] Dr. Machelle Garcia Urea nitrogen/Creatinine [Mass ratio] 11.6 mg/mg Normal [facility] Comment on above: Performed By: #### S ALYC ACET, CMP #### [facility] [address] [address] [address] Machelle Garcia SALICYLATEon 09-12-2022 SALICYLATE <2.8 Normal <=19.9 [facility] Comment on above: Performed By: #### S FAITH PIERSON, CMP #### [facility] [address] [place] [address] Dr. Machelle Garcia XR CHEST 1 Von [...] ROSEANNE GRADY Date: 2021-10-03 20:52 Normal [facility] CBC AUTO DIFFon 09-30-2021 BASO # 0.0 103/ul Normal 0.0-0.1 [facility] Comment on above: Performed By: #### C BC #### [facility] [address] [place] [address] Dr. Machelle Garcia Basophils/100 WBC (Bld) 0.4 % Normal 0.2-2.0 [facility] Comment on above: Performed By: #### C BC #### [facility] [address] [place] [address] Dr. Machelle Garcia EO # 0.1 103/ul Normal 0.0-0.7 [facility] Comment on above: Performed By: #### C BC #### [facility] [address] [address] [address] Machelle Garcia Eosinophils/100 WBC (Bld) 1.3 % Normal 0.9-7.0 [facility] Comment on above: Performed By: #### C BC #### [facility] [address] [place] [address] Dr. Machelle Garcia Erythrocyte distribution width (RBC) [Ratio] 12.8 % Normal 11.0-15.0 [facility] Comment on above: Performed By: #### C BC #### [facility] [address] [place] [address] Dr. Machelle Garcia Hematocrit (Bld) [Volume fraction] 40.7 % Normal 36.0-48.0 [facility] Comment on above: Performed By: #### C BC #### [facility] [address] [place] [address] Dr. Machelle Garcia Hemoglobin (Bld) [Mass/Vol] 13.7 g/dL Normal 12.0-16.0 [facility] Comment on above: Performed By: #### C BC #### [facility] [address] [place] [address] Dr. Machelle Garcia IG # 0.03 10e3/ul Normal 0.00-0.03 [facility] Comment on above: Performed By: #### C BC #### [facility] [address] [place] [address] Dr. Machelle Garcia IG % 0.4 % Normal 0.0-0.5 [facility] Comment on above: Performed By: #### C BC #### [facility] [address] [place] [address] Dr. Machelle Garcia LYMPH # 0.6 103/ul Critically low 1.2-3.8 [facility] Comment on above: Performed By: #### C BC #### [facility] [address] [place] [address] Dr. Machelle Garcia Lymphocytes/100 WBC (Bld) 8.8 % Critically low 20.5-60.0 [facility] Comment on above: Performed By: #### C BC #### [facility] [address] [place] [address] Dr. Machelle Garcia MANUAL DIFF REQ NO Normal [facility] Comment on above: Performed By: #### C BC #### [facility] [address] [place] [address] Dr. Machelle Garcia MCH (RBC) [Entitic mass] 29.0 pg Normal 26.7-34.0 [facility] Comment on above: Performed By: #### C BC #### [facility] [address] [address] [address] Machelle Garcia MCHC (RBC) [Mass/Vol] 33.7 g/dL Normal 29.9-35.2 [facility] Comment on above: Performed By: #### C BC #### [facility] [address] [address] [address] Machelle Garcia MCV (RBC) [Entitic vol] 86.2 fL Normal 81.0-99.0 [facility] Comment on above: Performed By: #### C BC #### [facility] [address] [address] [address] Machelle Garcia MONO # 1.0 103/ul Critically high 0.3-0.8 [facility] Comment on above: Performed By: #### C BC #### [facility] [address] [place] [address] Dr. Machelle Garcia Monocytes/100 WBC (Bld) 14.4 % Critically high 1.7-12.0 [facility] Comment on above: Performed By: #### C BC #### [facility] [address] [address] [address] Machelle Garcia NEUT # 5.1 103/ul Normal 1.4-6.5 [facility] Comment on above: Performed By: #### C BC #### [facility] [address] [place] [address] Dr. Machelle Garcia Neutrophils/100 WBC (Bld) 74.7 % Normal 43.0-75.0 [facility] Comment on above: Performed By: #### C BC #### [facility] [address] [place] [address] Dr. Machelle Garcia Platelet mean volume (Bld) [Entitic vol] 9.7 fL Normal 9.5-13.5 [facility] Comment on above: Performed By: #### C BC #### [facility] [address] [place] [address] Dr. Machelle Garcia PLT 211 103/ul Normal 150-450 [facility] Comment on above: Performed By: #### C BC #### [facility] [address] [address] [address] Machelle Garcia RBC 4.72 106/ul Normal 4.20-5.40 [facility] Comment on above: Performed By: #### C BC #### [facility] [address] [place] [address] Dr. Machelle Garcia WBC 6.8 103/ul Normal 4.0-11.0 [facility] Comment on above: Performed By: #### C BC #### [facility] [address] [address] [address] Machelle Garcia [facility] 09[facility]02 SARS-CoV-2 (COVID-19) RNA BERNARDINO+probe Ql (Unsp spec) Detected Critically abnormal NOT DETECTED [facility] Comment on above: Result Comment: This test is not yet approved or cleared by the [place] FDA. When there are no FDA-approved or cleared tests available, and other criteria are met, FDA can make tests available under an emergency access mechanism called an Emergency Use Authorization (EUA). The EUA for this test is supported by the [place] of Health and Human Service's declaration that [...] used). Performed By: #### C VDTBH #### [facility] [address] [place] [address] Dr. Machelle Garcia D-DIMERon 09-30-2021 D-DIMER 0.37 mg/L FEU Normal 0.19-0.50 [facility] Comment on above: Performed By: #### D DIM #### [facility] [address] [place] [address] Dr. Machelle Garcia D-DIMER COMMENTS SEE BELOW Normal [facility] Comment on above: Result Comment: Incr [...] hospitalization. Performed By: #### D DIM #### [facility] [address] [address] [address] Machelle Garcia PROF 14(COMP METB)on 021 Albumin [Mass/Vol] 3.5 g/dL Normal 3.5-5.0 [facility] Comment on above: Performed By: #### C MP ####[facility] [address] [address]DrMarilee Garcia Albumin/Globulin [Mass ratio] 0.9 {ratio} Normal [facility] Comment on above: Performed By: #### C MP ####[facility] [address] [address]Dr. Machelle Garcia ALP [Catalytic activity/Vol] 81 U/L Normal 38-126 [facility] Comment on above: Performed By: #### C MP ####[facility] [address] [address]Dr. Machelle Garcia ALT [Catalytic activity/Vol] 44 U/L Normal 9-52 [facility] Comment on above: Performed By: #### C MP ####[facility] [address] [address]DrMarilee Garcia Anion gap [Moles/Vol] 12.2 mmol/L Normal [facility] Comment on above: Performed By: #### C MP ####[facility] [address] [address]Dr. Machelle Garcia AST [Catalytic activity/Vol] 17 U/L Normal 14-36 [facility] Comment on above: Performed By: #### C MP ####[facility] [address] [address]DrMarilee Garcia Bilirubin [Mass/Vol] 0.3 mg/dL Normal 0.2-1.3 [facility] Comment on above: Performed By: #### C MP ####[facility] [address] [address]Dr. Machelle Garcia Calcium [Mass/Vol] 8.7 mg/dL Normal 8.4-10.2 [facility] Comment on above: Performed By: #### C MP ####[facility] [address] [address]Dr. Machelle Garcia Chloride [Moles/Vol] 103 mmol/L Normal 98-107 [facility] Comment on above: Performed By: #### C MP ####[facility] [address] [place], [place] [address]Dr. Machelle Garcia CO2 [Moles/Vol] 25.3 mmol/L Normal 22.0-30.[address] [facility] Comment on above: Performed By: #### C MP ####[facility] [address] [place], [place] [address]Dr. Machelle Garcia Creatinine [Mass/Vol] 0.87 mg/dL Normal 0.52-1.04 [facility] Comment on above: Performed By: #### C MP ####[facility] [address] [place], [place] [address]Dr. Machelle Garcia EGFR-AF GRENADIAN >60 Normal >=[address] [facility] Comment on above: Performed By: #### C MP ####[facility] [address] [place], [place] [address]Dr. Machelle Garcia EGFR-NON AF GRENADIAN >60 Normal >=60 [facility] Comment on above: Performed By: #### C MP ####[facility] [address] [place], [place] [address]Dr. Machelle Garcia Globulin (S) [Mass/Vol] 3.8 g/dL Normal [facility] Comment on above: Performed By: #### C MP ####[facility] [address] [place], [place] [address]Dr. Machelle Garcia Glucose [Mass/Vol] 99 mg/dL Normal 74-106 [facility] Comment on above: Performed By: #### C MP ####[facility] [address] [address]Dr. Machelle Garcia Potassium [Moles/Vol] 3.5 mmol/L Normal 3.4-5.0 [facility] Comment on above: Performed By: #### C MP ####[facility] [address] [id number]. Machelle Garcia Protein [Mass/Vol] 7.3 g/dL Normal 6.1-8.2 [facility] Comment on above: Performed By: #### C MP ####[facility] [address] [address]Dr. Machelle Garcia Sodium [Moles/Vol] 137 mmol/L Normal 137-145 [facility] Comment on above: Performed By: #### C MP ####[facility] [address] [address]Dr. Machelle Garcia Urea nitrogen [Mass/Vol] 11.0 mg/dL Normal 6.4-19.3 [facility] Comment on above: Performed By: #### C MP ####[facility] [address] [place], [place] [id number]. Machelle Garcia Urea nitrogen/Creatinine [Mass ratio] 12.6 mg/mg Normal [facility] Comment on above: Performed By: #### C MP ####[facility] [address] [address]Dr. Machelle Garcia Cytology Cervical or vaginal smear or scraping studyOrdered By: Beata Greenberg on 12-09-2020 [facility] Vital Signs Date Time Vital Sign Value Performing Clinician Facility 05-15-2025 10:37-0400 Body mass index (BMI) [Ratio] 53.52 kg/m2 [facility] 05-15-2025 10:37-0400 Body weight 120.2 kg [facility] 05-15-2025 10:37-0400 Diastolic blood pressure 74 mm[Hg] [facility] 05-15-2025 10:37-0400 Systolic blood pressure 124 mm[Hg] [facility] 04-19-2025 09:36-0400 Body mass index (BMI) [Ratio] 51.71 kg/m2 Monty Lemons DO Work Phone: [facility] 04-19-2025 09:36-0400 Body temperature 98.71 [degF] Monty Lemons DO Work Phone: [facility] 04-19-2025 09:36-0400 Body weight 116.12 kg Monty Lemons DO Work Phone: [facility] 04-19-2025 09:36-0400 Diastolic blood pressure 72 mm[Hg] Monty Lemons DO Work Phone: [facility] 04-19-2025 09:36-0400 Heart rate 111 /min Monty Lemons DO Work Phone: [facility] 04-19-2025 09:36-0400 SaO2% (BldA) [Mass fraction] 99 % Monty Lemons DO Work Phone: [facility] 04-19-2025 09:36-0400 Systolic blood pressure 122 mm[Hg] Monty Lemons DO Work Phone: [facility] 03-23-2025 09:02-0400 Body height 149.9 cm Renee Chary DO Work Phone: [facility] 03-23-2025 09:02-0400 Body mass index (BMI) [Ratio] 51.71 kg/m2 Renee Chary DO Work Phone: [facility] 03-23-2025 09:02-0400 Body weight 116.12 kg Renee Chary DO Work Phone: [facility] 03-23-2025 09:02-0400 Diastolic blood pressure 70 mm[Hg] Renee Chary DO Work Phone: [facility] 03-23-2025 09:02-0400 Systolic blood pressure 120 mm[Hg] Renee Chary DO Work Phone: [facility] 09-09-2024 12:49-0500 Body mass index (BMI) [Ratio] 63.11 kg/m2 Breana Posada CRACKING UNIT OPERATOR Work Phone: [facility] 09-09-2024 12:49-0500 Body temperature 98.1 [degF] Breana Posada CRACKING UNIT OPERATOR Work Phone: [facility] 09-09-2024 12:49-0500 Body weight 105.9 kg Breana Posada CRACKING UNIT OPERATOR Work Phone: [facility] 09-09-2024 12:49-0500 Diastolic blood pressure 80 mm[Hg] Breana Posada CRACKING UNIT OPERATOR Work Phone: [facility] 09-09-2024 12:49-0500 Heart rate 103 /min Breana Posada CRACKING UNIT OPERATOR Work Phone: [facility] 09-09-2024 12:49-0500 SaO2% (BldA) [Mass fraction] 98 % Breana Posada CRACKING UNIT OPERATOR Work Phone: [facility] 09-09-2024 12:49-0500 Systolic blood pressure 100 mm[Hg] Breana Posada CRACKING UNIT OPERATOR Work Phone: [facility] 09-15-2022 07:26-0500 Body temperature 98.4 [degF] MD Helio Florian Work Phone: [facility] 09-15-2022 07:26-0500 Diastolic blood pressure 70 mm[Hg] MD Helio Florian Work Phone: [facility] 09-15-2022 07:26-0500 Heart rate 92 /min MD Helio Florian Work Phone: [facility] 09-15-2022 07:26-0500 Respiratory rate 16 /min MD Helio Florian Work Phone: [facility] 09-15-2022 07:26-0500 SaO2% (BldA) [Mass fraction] 97 % MD Helio Florian Work Phone: [facility] 09-15-2022 07:26-0500 Systolic blood pressure 117 mm[Hg] MD Helio Florian Work Phone: [facility] 09-13-2022 00:57-0500 Body height 149.86 cm MD Helio Florian Work Phone: [facility] 09-13-2022 00:57-0500 Body weight 90.71 kg MD Helio Florian Work Phone: [facility] Encounters Encounter Date Encounter Type Care Provider Facility Start: 05-29-2025 End: 05-29-2025 Clinisync Result Encounter Columba Urrutiaerly CRACKING UNIT OPERATOR Work Phone: [facility] Unsolicited Start: 05-29-2025 End: 05-29-2025 Clinisync Result Encounter Columba Temple CRACKING UNIT OPERATOR Work Phone: [facility] Unsolicited Start: 05-15-2025 End: 05-15-2025 ambulatory Chary Nurse [facility] [place] [facility] Comment on above: GA: 7w0d Start: 04-23-2025 [...] Dx); Amenorrhea Start: 04-14-2025 ambulatory Dante Esparza acility:[facility] Start: 04-10-2025 End: 04-11-2025 Clinisync Result [...] Office outpatient visit 25 minutes Breana Posada CRACKING UNIT OPERATOR Work Phone: [facility] Comment on above: Acute cough (Primary Dx); Bronchitis Start: 09-09-2024 End: 09-09-2024 ambulatory BREANA POSADA Not Available Start: 09-13-2022 End: 09-15-2022 Evaluation and management of inpatient MD Helio Florian Work Phone: [facility] Start: 09-12-2022 End: 09-13-2022 ambulatory TAL IQBAL Facility:[facility] Start: 10-19-2021 End: 10-19-[address] HELIO FLORIAN Facility:[facility] Start: 10-03-2021 End: 10-03-[address] HELIO FLORIAN Facility:[facility] Start: 09-30-2021 End: 09-30-[address] SUMI DURON Facility:[facility] Procedures Date Procedure Procedure Detail Performing Clinician Start: 05-29-2025 BOX TEST Columba tong CRACKING UNIT OPERATOR Work Phone: Start: 05-15-2025 Urnls dip stick/tabl et rgnt [...] encounter procedure 06/15/2025 10:40 AM EDT Routine [facility] [address] [place] [address] Renee Diez, DO [address] [place] [address] [facility] Start: 06-01-2025 Influenza vaccination [facility] Start: 05-15-2025 End: 05-15-2026 ABO/Rh ABO/Rh Lab Routine Missed menses , unspecified gestational age ([facility]) Expected: 05/15/2025 (Approximate), Expires: 05/15/2026 [facility] Comment on above: Expected: 05/15/2025 (Approximate), Expires: 05/15/2026 Start: 05-15-2025 End: 05-15-2026 Blood type and Indirect antibody screen panel - Blood Type and screen Lab Routine Missed menses , unspecified gestational age ([facility]) Expected: 05/15/2025 (Approximate), Expires: 05/15/2026 [facility] Comment on above: Expected: 05/15/2025 (Approximate), Expires: 05/15/2026 Start: 05-15-2025 End: 05-15-2026 Drugs of abuse panel - Urine by Screen method Rapid drug screen, urine Lab Routine , unspecified gestational age ([facility]) Encounter for supervision of normal first in first trimester ([facility]) Expected: 05/15/2025 (Approximate), Expires: 05/15/2026 [facility] Comment on above: Expected: 05/15/2025 (Approximate), Expires: 05/15/2026 Start: 05-15-2025 End: 05-15-2025 ambulatory 05/15/2025 10:00 AM EDT Initial LEA NIELSEN [address] [place] [address] [facility] Start: 05-15-2025 End: 05-15-2025 Professional / ancillary services management 05/15/2025 9:30 AM EDT Ancillary Procedure LEA NIELSEN [address] [place] [id number] [facility] Start: 05-06-2025 End: 08-06-2025 US Pelvis transvaginal US OB transvaginal Imaging Routine Missed menses Positive urine test ([facility]) Expected: 05/06/2025, Expires: 08/06/2025 [facility] Work Phone: Comment on above: Expected: 05/06/2025 , Expires: 08/06/2025 Start: 03-24-2025 End: 03-24-2025 Professional / ancillary services management 03/24/2025 10:00 AM EDT Ancillary Procedure [facility] [address] [place] [address] [place] [address] [facility] Start: 03-23-2025 End: 03-23-2026 Antimullerian hormone (AMH) Antimullerian hormone (AMH) Lab Routine Female infertility PCOS (polycystic ovarian syndrome) Expected: 03/23/2025, Expires: 03/23/2026 [facility] Comment on above: Expected: 03/23/2025 , Expires: 03/23/2026 Start: 03-23-2025 End: 03-23-2026 CBC W Auto Differential panel - Blood CBC and differential Lab Routine Female infertility PCOS (polycystic ovarian syndrome) Expected: 03/23/2025 (Approximate), Expires: 03/23/2026 [facility] Comment on above: Expected: 03/23/2025 (Approximate), Expires: 03/23/2026 Start: 03-23-2025 End: 03-23-2026 DHEA DHEA Lab Routine Female infertility PCOS (polycystic ovarian syndrome) Expected: 03/23/2025, Expires: 03/23/2026 [facility] Comment on above: Expected: 03/23/2025 , Expires: 03/23/2026 Start: 03-23-2025 End: 03-23-2026 DHEA-sulfate DHEA-sulfate Lab Routine Female infertility PCOS (polycystic ovarian syndrome) Expected: 03/23/2025 (Approximate), Expires: 03/23/2026 [facility] Comment on above: Expected: 03/23/2025 [...] ovarian syndrome) Expected: 03/23/2025 (Approximate), Expires: 03/23/2026 [facility] Work Phone: Comment on above: Expected: 03/23/2025 (Approximate), Expires: 03/23/2026 Start: 03-23-2025 End: 03-23-2026 Hemoglobin A1c/Hemoglobin.total in Blood Hemoglobin A1c Lab Routine Female infertility PCOS (polycystic ovarian syndrome) Expected: 03/23/2025 (Approximate), Expires: 03/23/2026 [facility] Comment on above: Expected: 03/23/2025 (Approximate), Expires: 03/23/2026 Start: 03-23-2025 End: 03-23-2026 Luteinizing hormone Luteinizing hormone Lab Routine Female infertility PCOS (polycystic ovarian syndrome) Expected: 03/23/2025 (Approximate), Expires: 03/23/2026 [facility] Comment on above: Expected: 03/23/2025 (Approximate), Expires: 03/23/2026 Start: 03-23-2025 End: 03-23-2026 Thyrotropin [Units/volume] in Serum or Plasma TSH Lab Routine Female infertility PCOS (polycystic ovarian syndrome) Expected: 03/23/2025 (Approximate), Expires: 03/23/2026 [facility] Comment on above: Expected: 03/23/2025 (Approximate), Expires: 03/23/2026 Start: 03-23-2025 End: 03-23-2026 Thyroxine (T4) free [Mass/volume] in Serum or Plasma T4, free Lab Routine Female infertility PCOS (polycystic ovarian syndrome) Expected: 03/23/2025 (Approximate), Expires: 03/23/2026 [facility] Comment on above: Expected: 03/23/2025 (Approximate), Expires: 03/23/2026 Start: 03-23-2025 End: 03-23-2026 US Pelvis US Pelvis w/ TV Imaging Routine Female infertility PCOS (polycystic ovarian syndrome) Expected: 03/23/2025, Expires: 03/23/2026 [facility] Comment on above: Expected: 03/23/2025 , Expires: 03/23/2026 Start: 06-01-2024 Influenza vaccination Influenza Vacc ine (#1) [facility] Start: 09-15-2022 [facility] Start: 09-13-2022 Hospital admission [facility] Bacteria identified in Urine by Culture Urine culture Microbiology Routine Missed menses Ordered: 05/15/2025 [facility] Comment on above: Ordered: 05/15/2025 CBC W Auto Different ial panel - Blood CBC and differential Lab Routine Missed menses , unspecified gestational age ([facility]-HCC) Ordered: 05/15/2025 [facility] Comment on above: Ordered: 05/15/2025 hCG, quantitative, hCG, quantitative, Lab Routine Possible Amenorrhea Ordered: 04/19/2025 [facility] Comment on above: Ordered: 04/19/2025 hCG, serum, qualitative hCG, ser um, qualitative Lab Routine Possible Amenorrhea Ordered: 04/19/2025 [facility] Work Phone: Comment on above: Ordered: 04/19/2025 Hemoglobin A1c/Hemoglobin.total in Blood Hemoglobin A1c Lab Routine Missed menses , unspecified gestational age ([facility]HS-HCC) Ordered: 05/15/2025 [facility] Comment on above: Ordered: 05/15/2025 Hepatitis B virus surface Ag [Presence] in Serum or Plasma by Immunoassay Hepatitis B surface antigen Lab Routine Missed menses , unspecified gestational age ([facility]-H[facility]) Ordered: 05/15/2025 [facility] Comment on above: Ordered: 05/15/2025 Hepatitis C virus Ab [Presence] in Serum or Plasma by Immunoassay Hepatitis C antibody Lab Routine Missed menses , unspecified gestational age ([facility]-HCC) Ordered: 05/15/2025 [facility] Comment on above: Ordered: 05/15/2025 HIV-1/HIV-2 antigen/antibody combination immunoassay HIV-1 and HIV-2 antibodies Lab Routine Missed menses , unspecified gestational age ([facility]HS-HCC) Ordered: 05/15/2025 [facility] Comment on above: Ordered: 05/15/2025 Patient Education Bipolar Disord er (DC) [facility] DC Instructions [facility] Work Phone: Patient referral [facility] Work Phone: Progesterone Progesterone Lab Routine Female infertility PCOS (polycystic ovarian syndrome) Ordered: 03/23/2025 [facility] Comment on above: Ordered: 03/23/2025 Reagin Ab [Presence] in Serum by RPR RPR Lab Routine Missed menses , unspecified gestational age ([facility]) Ordered: 05/15/2025 [facility] Comment on above: Ordered: 05/15/2025 Rubella antibody, IgG Rubella an tibody, IgG Lab Routine Missed menses , unspecified gestational age ([facility]) Ordered: 05/15/2025 [facility] Comment on above: Ordered: 05/15/2025 US Pelvis transvaginal US OB tra nsvaginal Imaging Routine Missed menses Positive urine test ([facility]) 05/15/2025 10:06 AM EDT [facility] Immunizations Immunization Date Immunization Notes Care Provider Alexus stratton 07-27-2014 influenza virus vacc ine, unspecified formulation Breana Posada CRACKING UNIT OPERATOR Work Phone: [facility] Payers Date Payer Category Payer Medicaid (Managed Care) [employer] [id number] 2023 Self-pay [id number] 2017 Medicaid [place]ID [place] [id number] 2002 Unknown [id number] [id number]. 593 2002 Unknown [id number] 2.16840.1.004032.3.579.2. 593 2002 Unknown [id number] 2.16840.1.923205.3.579.2. 593 2002 Unknown [id number] 2.16840.1.463571.3.579.2. 593 2002 Unknown [id number] 2.16840.1.139290.3.579.2. 1259 2002 Unknown [id number] 2.16840.1.071771.3.579.2. 1259 2002 Unknown [id number] 2.16840.1.213123.3.579.2. 1259 2002 Unknown [id number] 2.16840.1.862340.3.579.2. 1259 2002 Unknown [id number] 2.16840.1.721509.3.579.2. 1259 2002 Unknown [id number] 2.16840.1.704275.3.579.2. 1259 1959 Medicaid [id number] Unknown [id number]. 531 Social History Date Type Detail Facility Start: [facility]-13-2022 [facility] Start: 2000 Sex Assigned At Female F [facility] Start: 04-05-2023 Tobacco smoking stat [facility] Never smoked tobacco [facility] Start: 04-05-2023 Tobacco use and exposure Smokeless tobacco non-user [facility] Start: 04-05-2023 End: 05-15-2025 Alcoholic beverage intake Lifetime non-drinker (finding) [facility] Start: 04-05-2023 End: 05-15-2025 History of Social function [facility] Start: 04-05-2023 End: 05-15-2025 Tobacco use panel [facility] Start: 2000 Sex assigned at Not [facility] file [facility] Start: 04-10-2025 [facility] Goals Date Patient Goal Desired Activity /State Functional Status Date Assessment Result Facility 09-15-2022 Functional status Patient at [facility] Work Phone: Mental Status Date Assessment Result Facility 09-15-2022 Cognitive function Cognitive Sta tus Patient at Baseline [facility] Work Phone: Clinical Notes [...] urinalysis dipstick manually resulted Positive urine test ([facility]) - US OB transvaginal; Future Amenorrhea 7 weeks gestation of ([facility]) Bipolar affective disorder, remission status unspecified (HCC) Borderline personality disorder (HCC) , unspecified gestational age ([facility]) - Type and screen; Future - ABO/Rh; Future - CBC and differential - Hemoglobin A1c - RPR - Rubella antibody, IgG - Hepatitis B surface antigen - Hepatitis C antibody - HIV-1 and HIV-2 antibodies - Rapid drug screen, urine; Future Encounter for supervision of normal first in first trimester ([facility]) - Rapid drug screen, urine; Future Nurse Note: Pt desires [place] billion to one. Pt was advised she has to be 9 weeks gestation in order to have [place] drawn along w/ labs. PVU. Pt is [...] Beata Greenberg MA documented in this encounter [facility] 04-19-2025 History of Presen t illness Narrative [...] Additional Comments: Want blood labs sent to [facility] ROS: A complete system ROS was [...] PRN/gynecology if applicable. documented in this encounter [facility] 03-23-2025 History of Presen t illness [...] nursing note reviewed. Exam conducted with a fire marshal present. Vitals: Estimated body mass index is [...] out to office to discuss with Dr. Deiz safer medications. Documented by Faye Sutton LPN on behalf of: Renee Diez DO documented in this encounter [facility] 09-09-2024 History of Presen t illness Narrative Images from the original note were not included. [address] , [address] [facility], [address] P: [phone] F: [phone] HPI Historian of HPI: patient Alexia Tristan [...] Left Turbinates: Enlarged and swollen. Mouth/Throat: Lips: [place]. Mouth: Mucous membranes are moist. Pharynx: Oropharynx [...] capsule; Refill: 0 documented in this encounter [facility] 09-15-2022 Discharge summary Note Date/Time September 15, 2022 10:25am [facility] [address] [place] [address] Discharge Summary Signed Patient: Kay Busch MR#: [id number] : 2000 Acct:[id number] Age/Sex: 22 / F Adm Date: 2 Loc: Room: [address] [place] [address]: Param Rao MD Copies to: [...] No activity restrictions. 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 (insert date/time [...] signed by Param Rao MD> 09/15/22 1037 [facility] Work Phone: 1(634) 485-516912-15-2022 Progress note Author Param Rao [facility] September 14, 2022 12:20pm Note Date/Time September 14, 2022 12:20pm [facility] [address] [place] [address] Psychiatry Progress Note Signed Patient: Kay Busch MR#: [id number] : 2000 Acct:[id number] Age/Sex: 22 / F Adm Date: 2 Loc: Room: [address] [place] [address] Type : ADM IN Attending Dr: Param [...] signed by Param Rao MD> 09/14/22 1220 [facility] Work Phone: 1(487) 470-344512-14-2022 History and physical note Author Param Rao [facility] September 13, 2022 12:48pm Note Date/Time September 13, 2022 12:48pm [facility] [address] [place] [address] Psychiatry H&P Signed Patient: Kay Busch MR#: [id number] : 2000 Acct:[id number] Age/Sex: 22 / F Adm Date: 2 Loc: Room: [address] [place] [address] Type: ADM IN Attending Dr: Param Rao [...] History (Updated 09/13/22 @ 01:11 by Rogelio Currie, ALEXANDER) No pertinent past surgical history Social History [...] explained Documented By: Param Rao MD 09/13/22 6470 Signed By: <Electronically signed by Param Rao MD> 09/13/22 8938 [facility] Work Phone: Evaluation note* Diagnosis Onset Date Resolution Status Bipolar disorder acute [facility] Work Phone: Evaluation note* Diagnosis [...] note* Diagnosis Missed menses Positive urine test ([facility]) Amenorrhea Absence of menstruation 7 weeks gestation of ([facility]) Bipolar affective disorder, remission status unspecified (HCC) Borderline personality disorder (HCC) Borderline personality disorder , unspecified gestational age ([facility]HCC) Encounter for supervision of normal first in first trimester ([facility]CC) [facility] Additional Instructions Regular diet. No activity restrictions.[facility] Work Phone: Chief Complaint and [...] Helio Florian MD Primary Care Provider Active Data Entry Assistant Relationship Specialty Start Date End Date Helio Florian MD [address] [place] [phone] PCP - General Family Medicine 04/05/23 Data Entry Assistant Relationship Specialty Start Date End Date Helio Florian MD [address] [place] [address] PCP - General Family Medicine 04/05/23 Data Entry Assistant Relationship Specialty Start Date End Date Helio Florian MD [address] [place] [address] PCP - General Family Medicine 04/05/23 Data Entry Assistant Relationship Specialty Start Date End Date Helio Florian MD [address] [place] [phone] PCP - General Family Medicine 04/05/23 Data Entry Assistant Relationship Specialty Start Date End Date Helio Florian MD [address] [place] [phone] PCP - [facility] 04/05/23 Data Entry Assistant Relationship Specialty Start Date End Date Helio Florian MD [address] [place] [phone] PCP - [facility] 04/05/23 Breana Posada, CRACKING UNIT OPERATOR [address] [place], [place] [phone] [facility] 12/30/2408/30 Data Entry Assistant Relationship Specialty Start Date End Date Helio Florian MD [address] [place] [phone] PCP - [facility] 04/05/23 Breana Posada CRACKING UNIT OPERATOR [address] [place], [place] [phone] [facility] 12/30/2408/30 Data Entry Assistant Relationship Specialty Start Date End Date Helio Florian MD [address] [place] [phone] PCP [facility] 04/05/23 Breana Posada, CRACKING UNIT OPERATOR [address] [place] [address] [facility] 12/30/2408/30 INFORMATION SOURCE (unrecogn ized section and content) DATE CREATED AUTHOR 09/21/2022 [facility] DATE CREATED AUTHOR AUTHOR'S ORGANIZ ATION 04/17/2025 [facility] DATE CREATED AUTHOR AUTHOR'S ORGANIZ ATION 05/20/2025 [facility] EPIC Reason for Visit (unrecogniz [...] BE BASED ON THE PRIMARY CLINICAL RECORDS. [employer] provides no warranty or guarantee of the accuracy or completeness of information in this document.
--- OUTSIDE RECORDS SUMMARY | 2025-05-29 19:27 | XMS_ITS | Clinical Summary ---
Author Organization [facility] Address [address] [place] [address] Care Team Providers Care Geophysics Professor Name Role Phone Helio Campos MD Primary Care Provider [phone] Breana Loving [facility] Unavailable [phone] Allergies No known active allergies Medications Zoloft 25 MG tablet Take 25 mg by mouth Daily 5 Active QUEtiapine (SEROquel) 25 MG tablet Take 25 mg by mouth at bedtime 5 Active metFORMIN XR (Glucophage-XR) 500 MG 24 hr tabletIndicatio ns:Female infertility,PCO S (polycystic ovarian syndrome) Take 1 tablet (500 mg) by mouth in the evening. Take with meals Do not crush, chew, or split. 30 tablet 11 5 05/15/20 25 Discontinu ed(Therapy completed) Active Problems Problem Noted Date Diagnosed Date Bipolar disorder 05/15/2025 Borderline personality disorder 05/15/2025 Estimated Date of Delivery Comme nts Yes 01/01/2026 Based on Ultraso und Encounters Date Type Department Care Team Description 05/29/2025 Clinisync Result Encounter [facility] External Department Unsolicited Columba Temple NP 05/15/2025 10:00 [place] [id number] [place]: [id number] 05/15/2025 9:30 AM EDT [place] [address] Missed menses; Positive urine test ([facility]) 04/23/2025 Clinisync Result Encounter [facility]OM[facility] External Department Unsolicited Cuong Diez, DO 04/21/2025 Clinisync Result Encounter [facility]OM[facility] External Department Unsolicited Cuong Diez, DO 04/20/2025 Telephone [facility] [address] [address] Beata Greenberg MA 04/19/2025 9:30 AM EDT Office Visit [facility] [address] [facility] [address] [place] [address] Monty Lemons, Betsy Tobar NP Possible (Primary Dx); Amenorrhea 04/19/2025 Travel 04/10/2025 Clinisync Result Encounter [facility]OMS External Department Unsolicited Cuong Diez, DO 03/24/2025 10:00 AM EDT Ancillary Procedure [facility] [address] [place] [address] Female infertility; PCOS (polycystic ovarian syndrome) 03/24/2025 Clinisync Result Encounter [facility]OMS External Department Unsolicited Cuong Diez, DO 03/23/2025 8:40 AM EDT Office Visit [facility] [address] [place] [address] Cuong Dize DO Female infertility; PCOS (polycystic ovarian syndrome) 03/23/2025 Telephone [facility] [address] [place] [address] Faye Sutton LPN 03/23/2025 Bamboo flowsheet [facility] [address] [place] [address] Cuong Diez, 03/20/2025 Travel from Last 3 Months Family History Relation Name Status Comments Brother Alive Father Alive Mother Alive Sister Alive Social History Tobacco Use Types Packs/Day Years [...] on file Sexual Orientation Not on file Last Filed Vital Signs Vital Sign Reading Time Taken Comments Blood Pressure 124/74 05/15/2025 10:37 AM EDT Pulse 111 04/19/2025 9:36 AM EDT Temperature 37.1 C (98.7 F) 04/19/2025 9:36 AM EDT Respiratory Rate - - Oxygen Saturation 99% 04/19/2025 9:36 AM EDT Inhaled Oxygen Concentration - - Weight 120 kg (265 lb) 05/15/2025 10:37 AM EDT Height 149.9 cm (4' 11 ) 03/23/2025 9:02 AM EDT Body Mass Index 53.52 03/23/2025 9:02 AM EDT Plan of Treatment Upcoming Encounters Date Type Department Care Team (Late st Contact Info) Description 06/15/2025 10:40 AM EDT Routine [facility] [address] [place] [phone] Cuong Diez DO [address] [place] [address] Health Maintenance Due Date Last Done Comments Influenza Vaccine (#1) 2025 4, 06/13/2013, 07/25/2012, Additional history exists Procedures Procedure Name Priority Date/Time Associated Diagnosis Comments MLR HEMOGLOBIN A1C Routine 05/29/2025 1: 30 PM EDT [facility] ANTIBODY ID Routine 05/29/2025 1:30 PM EDT ALL TYPE AND SCREEN Routine 05/29/2025 1 :30 PM EDT ALL CBC WITH AUTO DIFF Routine 1:30 PM EDT BOX TEST Routine 05/29/2025 1:30 PM EDT [facility] DRUG SCREEN RAPID (URINE) Routine 12:58 PM EDT POCT URINALYSIS DIPSTICK Routine 025 10:10 AM EDT Missed menses POCT , URINE Routine 05/15/2025 10:10 AM EDT Missed menses OB TRANSVAGINAL Routine 05/15/2025 10:06 AM EDT Missed menses Positive urine test ([facility]) [facility] PREG QUANT HCG Routine 04/23/2025 10:09 AM EDT [facility]H PREG QUANT HCG Routine 04/21/2025 10:18 AM EDT POCT , URINE Routine 04/19/2025 9:52 AM EDT Possible ALL PROGESTERONE Routine 04/10/2025 11:50 AM EDT ALL DEHYDROEPIANDROSTERONE Routine 03/24 11:00 AM EDT ALL ANTI-MULLERIAN HORMONE Routine 03/24 11:00 AM EDT ALL FOLLICLE STIMULATING HORMONE Routine 03/24/2025 11:00 AM EDT ALL LUTEINIZING HORMONE Routine 03/24/20 11:00 AM EDT ALL DHEA SULFATE Routine 03/24/2025 11:00 AM EDT ALL THYROXINE (T4) FREE Routine 03/24/20 11:00 AM EDT TBH PREG QUANT HCG Routine 03/24/2025 11:00 AM EDT ALL THYROID STIM HORMONE Routine 025 11:00 AM EDT ALL CBC WITH AUTO DIFF Routine 11:00 AM EDT MLR HEMOGLOBIN A1C Routine 03/24/2025 11:00 AM EDT US PELVIC COMPLETE W/ TV Routine 025 10:33 AM EDT Female infertility PCOS (polycystic ovarian syndrome) from Last 3 Months Results * BOX TEST (05/29/2025 1:30 PM EDT) [facility]OX [facility] 05/29/25 [facility] 05/29/2025 1:30 PM EDT 05/29/2025 1:38 PM EDT Narrative CLINISYNC - 05/29/2025 1:47 PM EDT Columba Temple [facility] LAB BLOOD ORDERABLES Final Re sult Performing Organization Address City/[facility]/ZIP Co de Phone Number [facility] * MLR HEMOGLOBIN A1C (05/29/2025 1:30 PM EDT) Only the most recent of2 resultswithin the time period is included. GLYCOHEMOGLOBIN A1C 4.9 4.5 - 6.2 % [facility] Comment: ADA RECOMMENDED LIMIT 4.0 - 6.0 ADA THERAPEUTIC TARGET < 7.0 ACTION SUGGESTED > 7.0 ESTIMATED AVERAGE GLUCOSE 94 mg/dL [facility] 05/29/2025 1:30 PM EDT 05/29/2025 1:38 PM EDT Narrative CLINISYNC - 05/29/2025 2:52 PM EDT Cuong Diez DO CLINISYNC Final Result Performing Organization Address City/[facility]/ZIP Co de Phone Number [facility] * [facility] ANTIBODY ID (05/29/2025 1:30 PM EDT) [facility] TB ANTIBODY ID PANEL D RHIG [facility] Comment: PROBABLE ANTI-D DUE TO RHIG ADMINISTRATION ON 05/14/25. FURTHER WORKUP AT [employer] REQUEST. 05/29/2025 1:30 PM EDT 05/29/2025 1:38 PM EDT Narrative CLINISYNC - 05/29/2025 2:38 PM EDT [facility] , Cuong Chary DO CLINISYNC Final Result CLINISYNV TB * ALL TYPE AND SCREEN (05/29/2025 1:30 PM EDT) [facility] BLOOD TYPE B Negative TBH ANTIBODY SCREEN POSITIVE [facility] 05/29/2025 1:30 PM EDT 05/29/2025 1:38 PM EDT Narrative CLINISYNC - 05/29/2025 2:38 PM EDT [facility] , [employer] DO CLINISYNC Final Result CLINISYNC TB * (ABNORMAL) ALL CBC WITH AUTO DIFF (05/29/2025 1:30 PM EDT) Only the most recent of2 resultswithin the time period is included. [facility] TB WBC 11.3(H) 4.0 - 11.0 10 3/uL TBH TBH RBC 4.24 4.20 - 5.40 10 6/uL TBH TBH HGB 12.9 12.0 - 16.0 g/dL TBH TBH HCT 36.5 36.0 - 48.0 % TBH TBH MCV 86.1 81.0 - 99.0 fL TBH TBH MCH 30.4 26.7 - 34.0 pg TBH TBH MCHC 35.3(H) 29.9 - 35.2 g/dL TBH TBH RDW 13.0 11.0 - 15.0 % TBH [...] EDT Cuong Diez DO CLINISYNC Final Result [facility] * (ABNORMAL) TB DRUG SCREEN RAPID (URINE) (05/29/2025 12:58 PM EDT) Pathologist [facility] CANNABINOID SCREEN URINE POSITIVE(A) NEGATIVE TBH PHENCYCLIDINE [...] Narrative CLINISYNC - 05/29/2025 2:02 PM EDT [facility] [place] DO [facility]IS[facility]NC Final [facility] * (ABNORMAL) POCT , urine manually resulted (05/15/2025 10:10 AM EDT) Only the most recent of2 resultswithin the time period is included. Preg Test, Ur Positive Negative Urine 05/15/2025 10:1 0 AM EDT Cuong Chary DO POINT OF CARE TEST ENTER/EDIT OR DERABLES Final Result * POCT urinalysis dipstick manually resulted (05/15/2025 10:10 AM EDT) Color, UA Yellow Clarity, UA Clear Glucose, UA Negative Negative - 1999(110) ++++ mg/dL Bilirubin, UA Negative Negative - 4(70) +++ mg/dL Ketones, UA Negative Negative - 160(16) ++++ mg/dL Spec Grav, UA 1.015 1 - 1.03 Blood, UA Negative Negative - 50 Yogesh/mcL pH, UA 6.0 5 - 9 Protein, UA Negative Negative - 1999(20) ++++ mg/dL Urobilinogen, UA 1.0 0.2 - 12 mg/dL Leukocytes, UA Negative Negative - 500+++ Jaci/mcL Nitrite, UA Negative Negative - Positive Urine 05/15/2025 10:1 0 AM EDT us Cuong Hcary DO POINT OF CARE TEST ENTER/EDIT OR [...] BY: Hunter Huffman MD us Cuong Chary DO IMG OB US PROCEDURES Final Resul t * TBH PREG QUANT HCG (04/23/2025 10:09 AM EDT) Only the most recent of3 resultswithin the time period is included. HCG QUANTITATIVE 275 mIU/mL TB Comment: 5-50 0.2-1 WEEK 50-500 1-2 WEEKS 100-5,000 2-3 WEEKS 500-10,000 3-4 WEEKS 1,000-50,000 4-5 WEEKS 10,000-100,000 5-6 WEEKS 15,000-200,000 6-8 WEEKS 10,000-100,000 2-3 MONTHS 04/23/2025 10:0 9 AM EDT 04/23/2025 10:22 AM EDT Narrative CLINISYNC - 04/23/2025 11:21 AM EDT [facility] Chary DO CLINISYNC Final Result Performing Organization Address [facility] de Phone Number [facility] * ALL PROGESTERONE (04/10/2025 11:50 AM EDT) Pathologist [facility] PROGESTERONE 9.5 . ng/mL [facility] Comment: Follicular phase 0.1 - 0.9 Luteal phase 1.8 - 23.9 Ovulation phase 0.1 - 12.0 First trimester 11.0 - 44.3 Second trimester 25.4 - 83.3 Third trimester 58.7 - 214.0 Postmenopausal 0.0 - 0.1 Performed at: [address] [id number] Braid Folder: Ilya Manjarrez PhD, Phone: [phone] 04/10/2025 11:5 0 AM EDT 04/10/2025 11:52 AM EDT Narrative CLINISYNC - 04/11/2025 4:09 AM EDT [facility] Chary DO CLINISYNC Final Result Performing Organization Address [facility] de Phone Number [facility] * ALL THYROXINE (T4) FREE (03/24/2025 11:00 AM EDT) [facility] FREE T4 1.19 0.76 - 1.46 ng/dL TBH 03/24/2025 11:0 0 AM EDT 03/24/2025 11:03 AM EDT Narrative CLINISYNC - 03/24/2025 12:00 PM EDT Cuong Chary DO CLINISYNC Final Result Performing Organization Address [facility] Phone Number [facility] * ALL THYROID STIM HORMONE (03/24/2025 11:00 AM EDT) THYROID STIMULATING HORMONE 3.180 0.358 - 3.740 uIU/mL [facility] 03/24/2025 11:0 0 AM EDT 03/24/2025 11:03 AM EDT Narrative CLINISYNC - 03/24/2025 11:33 AM EDT Cuong Chary DO CLINISYNC Final Result Performing Organization Address [facility] Phone Number [facility] * ALL LUTEINIZING HORMONE (03/24/2025 11:00 AM EDT) LUTEINIZING HORMONE(LH) 4.4 . mIU/mL [facility]H Comment: Adult Female Range Follicular phase 2.4 - 12.6 Ovulation phase 14.0 - 95.6 Luteal phase 1.0 - 11.4 Postmenopausal 7.7 - 58.5 03/24/2025 11:0 0 AM EDT 03/24/2025 11:03 AM EDT Narrative CLINISYNC - 03/25/2025 4:07 AM EDT Cuong Chary DO CLINISYNC Final Result Performing Organization Address [facility] de Phone Number [facility] * ALL FOLLICLE STIMULATING HORMONE (03/24/2025 11:00 AM EDT) FSH 9.3 . mIU/mL [facility]H Comment: Adult Female Range Follicular phase 3.5 - 12.5 Ovulation phase 4.7 - 21.5 Luteal phase 1.7 - 7.7 Postmenopausal 25.8 - 134.8 Performed at: [address] [id number] Braid Folder: Ilya Manjarrez PhD, Phone: [phone] 03/24/2025 11:0 0 AM EDT 03/24/2025 11:03 AM EDT Narrative CLINISYNC - 03/25/2025 4:07 AM EDT us Cuong Chary DO [facility]INISYNC Final Result [facility] * ALL DHEA SULFATE (03/24/2025 11:00 AM EDT) DHEA-SULFATE 386.0 110.0 - 431.7 ug/dL [facility] 03/24/2025 11:0 0 AM EDT 03/24/2025 11:03 AM EDT Narrative CLINISYNC - 03/25/2025 4:07 AM EDT Cuong Chary DO CLINISYNC Final Result Performing Organization Address [facility]/ZIP Co de Phone Number [facility] * ALL DEHYDROEPIANDROSTERONE (03/24/2025 11:00 AM EDT) DHEA, SERUM 279 31 - 701 ng/dL [facility] Comment: This test was developed and its performance characteristics determined by [facility]. It has not been cleared or approved by the Food and Drug Administration. Performed at: [address] [id number] Braid Folder: Tiara Merchant MD, Phone: [phone] 03/24/2025 11:0 0 AM EDT 03/24/2025 11:03 AM EDT Narrative CLINISYNC - 03/27/2025 5:08 PM EDT Cuong Chary DO CLINISYNC Final Result Performing Organization Address City/[facility]/ZIP Co de Phone Number [facility] * ALL ANTI-MULLERIAN HORMONE (03/24/2025 11:00 AM EDT) ANTI-MULLERIAN HORMONE (AMH) 0.939 . ng/mL [facility] Comment: For assays employing antibodies, the possibility exists for interference by heterophile antibodies in the samples.1 1.Jayant George Interferences in Immunoassays - still a threat. Clin. Chem. 2000; 46: 4825-1163. This test was developed and its performance characteristics determined by [employer]. It has not been cleared or approved by the Food and Drug Administration. Reference Range: Females 20 - 25y: 1.23 - 11.51 Median 4.70 AMH concentrations of >= 1.06 ng/mL is correlated with a better response to ovarian stimulation, produced more retrievable oocytes and higher odds of live according to Cristal et al. Fertility and Sterility. 2010: 94:1069-6849. The current AMH test method correlates with the study method with a slope of 0.94. Females at risk of ovarian hyperstimulation syndrome or polycystic ovarian syndrome (PCOS) may exhibit elevated serum AMH concentrations. AMH levels from PCOS patients may be 2 to 5 fold higher than age-appropriate reference interval values. Granulosa cell tumors of the ovary may secrete AMH along with other tumor markers. Elevated AMH is not specific for malignancy, and the assay should not be used exclusively to diagnose or exclude an AMH-secreting ovarian tumor. Performed at: [facility] [address] [place] [id number] Braid Folder: Rogelio Salmon MD, Phone: [phone] 03/24/2025 11:0 0 AM EDT 03/24/2025 11:03 AM EDT Narrative CLINISYNC - 03/27/2025 3:07 AM EDT us Cuong Chary DO CLINISYNC Final Result [facility] * US Pelvis w/ TV (03/24/2025 10:33 AM EDT) Anatomical Region Laterality Modality Pelvis Ultrasound 03/25/2025 7:53 AM EDT Narrative 03/25/2025 7:53 AM EDT EXAM: US PELVIC COMPLETE W/ TV HISTORY: [...] II, MD, PHD at 25-Mar-2025 07:52:19 AM [facility] Procedure Note Payal Plummer MD - 03/25/2025 EXAM: US PELVIC COMPLETE W/ TV HISTORY: PCOS. COMPARISON: None available. TECHNIQUE: Two-dimensional transabdominal grayscale ultrasound imaging ofthe pelvis was performed. Color flow Doppler imaging of the ovaries wasalso performed. Transvaginal was performed. FINDINGS: UTERUS 7.2 x 3.6 x 5.6 cm The uterus is anteverted in position and demonstrates a normal,homogeneous echotexture. ENDOMETRIUM 0.2 cm The endometrium demonstrates a normal, homogeneous echotexture. RIGHT OVARY 3.0 x 1.5 x 1.9 cm The right ovary demonstrates a normal echotexture. The ovarian volume is5 mL. There is normal color Doppler flow. LEFT OVARY 2.9 x 1.3 x 2.5 cm The left ovary demonstrates a normal echotexture. The ovarian volume is 5mL. There is normal color Doppler flow. No fluid is present within the cul-de-sac. IMPRESSION: 1. Unremarkable ultrasound of the pelvis. 2. Normal color Doppler flow within the bilateral ovaries. Interpreted by: Electronically signed by PAYAL PLUMMER II, MD, PHD [id number] 07:52:19 AM [facility] us Cuong Diez DO IMG US PROCEDURES Final Result from Last 3 Months Insurance [employer] Care Teams Geophysics Professor Relationship Specialty Start Date End Date Helio Campos MD [address] [place] [address] PCP - General Family Medicine 04/05/23 Breana Loving NP [address] [place] [address] PCP - [facility] 12/30/2408/30
--- OUTSIDE RECORDS SUMMARY | 2025-05-29 19:27 | XMS_ITS | Clinical Summary ---
Author Organization [employer] Address [id number] [address] [place] [address] Care Team Providers Care Program Engineer Name Role Phone Helio Campos MD Primary Care Provider [phone] Allergies No known active allergies Medications testosterone [...] on file Insurance [employer] Care Teams Program Engineer Relationship Specialty Start Date End Date Helio Campos MD PCP - General Family Medicine 04/04/23
--- NOTE | 2025-05-29 19:44 | ED_ITS ---
HPI HPI - General Adult General Chief complaint: Weakness Stated complaint: WEAK, HEART IS RACING Time Seen by Provider: 05/29/25 19:12 Source: patient Mode of arrival: walk-in Limitations: no limitations History of Present Illness HPI narrative: 24-year-old female, approximately 9 weeks gestation, presents to the ED with generalized fatigue and weakness after having 11 vials of blood drawn earlier today. She reports feeling faint and nauseated but has not vomited. She denies vaginal bleeding or discharge, abdominal pain, diarrhea, chest pain, shortness of breath, lightheadedness, or syncope. She has had an uncomplicated to date with regular care. The patient reports taking vitamins daily. She is tolerating oral fluids, no complications with . Related Data Home Medications ?Medication ?Instructions ?Recorded ?Confirmed injection testosterone 0.15 mg subcut .two times a week 05/05/23 05/05/23 bupropion HCl 300 mg 24 hr tablet, mg PO 05/05/23 extended release cariprazine 6 mg capsule (Vraylar) 6 mg PO DAILY 05/0508/31/24 hydroxyzine HCl 25 mg tablet mg 05/05/23 oxcarbazepine 300 mg tablet mg 05/05/23 trazodone 50 mg tablet mg 05/05/23 venlafaxine 75 mg capsule,extended 150 mg PO DAILY 10/2408/31/24 release 24 hr quetiapine 25 mg tablet 25 mg PO HS 05/29/25 5 sertraline 25 mg tablet 25 mg PO Q24H 05/29/2505/29 Previous Rx's ?Medication ?Instructions ?Recorded nuejcgtnfyabsjx-myqfnnvejccyujk-TN 5 ml PO Q6H PRN col d symptoms #118 09/26/23 2 mg-30 mg-10 mg/5 mL oral syrup mL (Bromfed DM) Allergies Allergy/AdvReac Type Severity Reaction Status Date / Time No Known Drug Allergies Allergy Verified 05/29/25 19:04 Opioid HPI Opioid Management Most Recent Opioid Data: Ur Phencyclidine Scrn, (NEGATIVE) Negative , 12:58 PFSH PFSH Social History Smoking status: Former smoker Little interest or pleasure in doing things: not at all Feeling down, depressed, or hopeless: not at all Exam Narrative Exam Narrative: General: Alert, oriented ?3, in no acute distress, pleasant and interactive. Vitals: BP 156/86 mmHg, HR 91 bpm, RR 20, Temp 96.8?F, SpO? 98% on room air. HEENT: Oropharynx clear, mucous membranes moist, no cervical lymphadenopathy. Cardiac: Regular rate and rhythm, no murmurs, rubs, or gallops, including with Valsalva. Pulmonary: Lungs clear to auscultation bilaterally, no respiratory distress. Abdomen: Soft, non-tender, non-distended, normoactive bowel sounds, no CVA tenderness. Extremities: Pulses 2+ and equal bilaterally, no edema. Neuro: strength and sensation normal, reflexes symmetric. Mental Status: Alert, oriented ?3, normal mood and affect. Constitutional Vital Signs, click to edit/add: Last Vital Signs Temp 96.9 F L 05/29/25 18:59 Pulse 91 H 05/29/25 18:59 Resp 20 05/29/25 18:59 BP 156/86 H 05/29/25 18:59 Pulse Ox 98 05/29/25 18:59 O2 Del Method Room Air 05/29/25 18:59 Course Reevaluation(s) Reevaluation #1: Much better. She will try p.o. intake and follow-up with her PCP after she is discharged. I did advise her that her magnesium and potassium are just mildly low. She is taking vitamin. She will address this with her OB next week at her visit. She is encouraged to increase her intake of potassium rich foods. Comfortable being discharged at this time Time: 20:00 Vital Signs Vital signs: Vital Signs Temperature 96.9 F L 05/29/25 18:59 Pulse Rate 91 H 05/29/25 18:59 Respiratory Rate 20 05/29/25 18:59 Blood Pressure 156/86 H 05/29/25 18:59 Pulse Oximetry 98 05/29/25 18:59 Oxygen Delivery Method Room Air 05/29/25 18:59 Temperature 96.9 F L 05/29/25 18:59 Pulse Rate 91 H 05/29/25 18:59 Respiratory Rate 20 05/29/25 18:59 Blood Pressure 156/86 H 05/29/25 18:59 Pulse Oximetry 98 05/29/25 18:59 Oxygen Delivery Method Room Air 05/29/25 18:59 Medical Decision Making MDM Narrative Medical decision making narrative: 24-year-old female at approximately 9 weeks gestation presented with generalized fatigue and malaise after having multiple blood vials drawn earlier today. She reported feeling faint and weak but had no syncope or other acute symptoms. Laboratory evaluation revealed mild leukocytosis (WBC 14), borderline low potassium (3.3 mEq/L), low magnesium (1.5 mg/dL), and hemoglobin 12.2 g/dL. Electrolyte abnormalities were likely secondary to mild dehydration. The patient received IV fluids with symptomatic improvement, remained hemodynamically stable, and tolerated oral intake. No acute obstetric, cardiac, or neurologic complications were identified. She was counseled on hydration, dietary intake of potassium- and magnesium-rich foods, and continuation of vitamins. Patient is comfortable, stable, and safe for discharge with follow-up recommended with her obstetric provider. Lab Data Labs: Lab Results 05/29/25 05/29/25 05/29/25 Range/Units 19:00 19:20 19:38 WBC 14.0 H (4.0-11.0) 10^3/uL RBC 3.92 L (4.20-5.40) 10^6/uL Hgb 12.2 (12.0-16.0) g/dL Hct 33.7 L (36.0-48.0) % MCV 86.0 (81.0-99.0) fL MCH 31.1 (26.7-34.0) pg MCHC 36.2 H (29.9-35.2) g/dL RDW 12.7 (11.0-15.0) % Plt Count 251 (150-450) 10^3/uL MPV 9.0 L (9.5-13.5) fL Neut % (Auto) 75.4 H (43.0-75.0) % Lymph % (Auto) 15.5 L (20.5-60.0) % [place] % (Auto) 7.6 (1.7-12.0) % Eos % (Auto) 0.7 L (0.9-7.0) % Baso % (Auto) 0.3 (0.2-2.0) % Neut # (Auto) 10.6 H (1.4-6.5) 10^3/uL Lymph # (Auto) 2.2 (1.2-3.8) 10^3/uL Hawkins # (Auto) 1.1 H (0.3-0.8) 10^3/uL Eos # (Auto) 0.1 (0.0-0.7) 10^3/uL Baso # (Auto) 0.0 (0.0-0.1) 10^3/uL Abs Immat Gran (auto) 0.07 H (0.00-0.03) 10^3/uL Imm/Tot Granulo (auto) 0.5 (0.0-0.5) % Sodium 138 (136-145) mmol/L Potassium 3.3 L (3.5-5.1) mmol/L Chloride 103 (98-107) mmol/L Carbon Dioxide 24.1 (21.0-32.0) mmol/L Anion Gap 14.2 BUN 8.0 (7.0-18.0) mg/dL Creatinine 0.75 (0.55-1.02) mg/dL Est GFR ( Amer) >60 (>=60 mL/min/1.73m^2) Est GFR (Non-Af Amer) >60 (>=60 mL/min/1.73m^2) BUN/Creatinine Ratio 10.7 Glucose 98 (74-106) mg/dL Calcium 9.4 (8.5-10.1) mg/dL Magnesium 1.5 L (1.8-2.4) mg/dL Total Bilirubin 0.3 (0.2-1.0) mg/dL AST 16 (15-37) U/L ALT 27 (14-59) U/L Alkaline Phosphatase 80 (46-116) U/L Total Protein 7.8 (6.4-8.2) g/dL Albumin 3.7 (3.4-5.0) g/dL Globulin 4.1 g/dL Albumin/Globulin Ratio 0.9 Urine Color Lt. yellow (YELLOW) Urine Clarity Sl cloudy (CLEAR) Urine pH 6.5 (5.0-9.0) Ur Specific [place] 1.010 (1.005-1.025) Urine Protein Negative (NEG/TRACE) mg/dL Urine Glucose (UA) Negative (NEGATIVE) mg/dL Urine Ketones Negative (NEGATIVE) mg/dL Urine Occult Blood Negative (NEGATIVE) Urine Nitrite Negative (NEGATIVE) Urine Bilirubin Negative (NEGATIVE) Urine Urobilinogen 0.2 (0.2-1.0) EU/dL Ur Leukocyte Esterase Negative (NEGATIVE) Urine RBC None seen (0-2) #/HPF Urine WBC 0-2 A (NONE SEEN) #/HPF Ur Squamous Epith Cells Many A (NONE/RARE) #/LPF Urine Crystals None seen (None Seen) #/HPF Urine Bacteria Trace A (NONE SEEN) #/HPF Urine Casts None seen (NONE SEEN) #/LPF Urine Mucus None seen (NONE SEEN) Ur Culture Indicated? No Discharge Plan Discharge Chief Complaint: Weakness Clinical Impression: Mild dehydration, , Hypokalemia, Hypomagnesemia Patient Disposition: Home, Self-Care Time of Disposition Decision: 20:33 Condition: Good Prescriptions / Home Meds: No Action trazodone 50 mg tablet oxcarbazepine 300 mg tablet hydroxyzine HCl 25 mg tablet bupropion HCl 300 mg tablet extended release 24 hr PO Vraylar 6 mg capsule 6 mg PO DAILY injection testosterone 0.15 mg subcut .two times a week venlafaxine 75 mg capsule,extended release 24hr 150 mg PO DAILY nxheqwoyujffhra-yegknwdxj-RF [Bromfed DM] 2-30-10 mg/5 mL syrup 5 ml PO Q6H PRN (Reason: cold symptoms) Qty: 118 0RF sertraline 25 mg tablet 25 mg PO Q24H quetiapine 25 mg tablet 25 mg PO HS Print Language: Citizen Of [place] Instructions: Dehydration (ED), Hypokalemia (ED), Hypomagnesemia (ED), at 7 to 10 Weeks (ED) Additional Instructions: Discharge Instructions: Fatigue and Mild Dehydration During Reason for Visit: You came to the ED today feeling weak and tired after having blood drawn. Your labs showed mild dehydration and low electrolytes, and you received IV fluids, which helped you feel better. Medications: * Continue taking your vitamins daily as prescribed. Diet and Fluids: * Drink plenty of fluids throughout the day to stay hydrated. * Include foods rich in potassium and magnesium, such as: * Bananas, oranges, and melons * Leafy green vegetables * Nuts, seeds, and legumes * Whole grains Activity: * You may resume your normal daily activities as tolerated. * Rest as needed if you feel fatigued. Warning Signs ? Return to the ED if you experience: * Severe dizziness, fainting, or feeling like you may pass out * Persistent nausea or vomiting * Vaginal bleeding or cramping * Chest pain or shortness of breath * Weakness or numbness that does not improve Follow-up: * See your obstetric provider as scheduled for routine care. * Continue monitoring your symptoms and hydration at home. Notes: * Your fatigue today was related to mild dehydration and low electrolytes from blood loss. * You are safe to go home at this time. Referrals: ALFREDO JORGENSEN [Primary Care Provider, Family Practice] - 1 week Discharge Date/Time: 05/29/25 20:47
[2025-05-29] MEDS: 0.9 % SODIUM CHLORIDE 1,000 ML 999 ML IV (19:46)
[2025-05-29 19:52] LABS: Glucose Urine UA NEGATIVE (NEGATIVE)
[2025-05-29 19:56] LABS: Hematocrit 33.7 % (36.0-48.0); Hemoglobin 12.2 g/dL (12.0-16.0); Immature Granulocytes Abs Auto 0.07 10^3/uL (0.00-0.03); Immature Granulocytes Pct Auto 0.5 % (0.0-0.5); Lymphocytes Absolute Auto 2.2 10^3/uL (1.2-3.8); Mean Corpuscular HGB Conc 36.2 g/dL (29.9-35.2); Mean Corpuscular Hemoglobin 31.1 pg (26.7-34.0); Mean Corpuscular Volume 86.0 fL (81.0-99.0); Platelet Count 251 10^3/uL (150-450); Red Blood Count 3.92 10^6/uL (4.20-5.40); White Blood Count 14.0 10^3/uL (4.0-11.0)
[2025-05-29 19:58] LABS: Alanine Aminotransferase 27 U/L (14-59); Albumin Globulin Ratio 0.9; Albumin Level 3.7 g/dL (3.4-5.0); Alkaline Phosphatase 80 U/L (46-116); Anion Gap 14.2; Aspartate Amino Transferase 16 U/L (15-37); Blood Urea Nitrogen 8.0 mg/dL (7.0-18.0); Calcium 9.4 mg/dL (8.5-10.1); Carbon Dioxide 24.1 mmol/L (21.0-32.0); Chloride 103 mmol/L (98-107); Estimated GFR (African America >60 (>=60 mL/min/1.73m^2); Estimated GFR (Non-African Ame >60 (>=60 mL/min/1.73m^2); Globulin 4.1 g/dL; Glucose 98 mg/dL (74-106); Magnesium 1.5 mg/dL (1.8-2.4); Potassium 3.3 mmol/L (3.5-5.1); Sodium 138 mmol/L (136-145); Total Protein 7.8 g/dL (6.4-8.2)
[2025-05-29 20:02] LABS: Cast Seen? NONE SEEN #/LPF (NONE SEEN); Crystals Seen? None Seen #/HPF (None Seen); Urine Culture Indicated NO
== END 2025-05-29 20:47 | disposition home or self-care (01) ==
PROVIDERS: Physician Assistant; Emergency Provider Internal Medicine; PCP Nurse Practitioner Family
DX: O26.891 Other specified pregnancy related conditions, first trimester (principal); D64.9 Anemia, unspecified; E87.6 Hypokalemia; E83.42 Hypomagnesemia; Z3A.09 9 weeks gestation of pregnancy
CPT/HCPCS: 36415; 80053; 80307; 80349; 81001; 83036; 83735; 85025; 86592; 86762; 86803; 86850; 86900; 86901; 87086; 87340; 87389

== ENCOUNTER 2025-07-03 16:05 | Emergency (ER) | payer OTHER, SELFPAY ==
--- OUTSIDE RECORDS SUMMARY | 2025-07-01 07:00 | XMS_ITS ---
Author Organization The [facility] in [place] Address [address] [place] [address] Care Team Providers Care Analytics Intern Name Role Phone Carole Desouza Primary Care Provider REASON FOR VISIT yearly check up Encounters Encounter Location Date Provider Diagnosis [facility] [address] [place] [address] 07/01/2025 Carole Desouza Plan Of Treatment No Information Progress Notes * Kay TRISTAN MDOB: [birth year] (25 yo F)Acc No.[id number]:07/01/2025 UNLOCKED PROGRESS NOTE Progress Note Patient: Parth GODINEZabellavery Perez Provider: Jason Desouza (TTC), VARNISH MAKER :2000 A ge:25 Y S ex:Female Date:07/01/2025 Address:[address] [place], [place] [phone] Subjective: * Chief Complaints: * 1 . Yearly check up. * Medical History: Objective: * Vitals: Assessment: Plan: * Treatment: * * Electronic signature of Suyapa Steel NP, PIN GAME MACHINE INSPECTOR.VARNISH [id number] on 07/03/2025 at 04:18 PM EDT Sign off status: Pending Visit Status: N /S N/C (No Show/No Charge) * Provider: Jason TEIXEIRA), VARNISH MAKER Date: Generated for Printi ng/Faxing/eTransmitting on: 04:18 PM EDT
[2025-07-03 16:09] VITALS: BMI 53.5
[2025-07-03 16:14] VITALS: BP 103/71; PULSE 84; TEMP 36.8; O2SAT 98
--- OUTSIDE RECORDS SUMMARY | 2025-07-03 16:18 | XMS_ITS ---
Author Organization [facility] Source Produ ction (ClinicalSummary Clone) Address Unknown Care Team Providers Care Hoister Name Role Phone Unavailable Primary Care Physician Unavailab le Results * [UNITY] CARRIER SCREEN Performed by: [email or web address] Component Value Range Date Sickle Cell Disease/Beta-Thalassemia/Hemo globinopathies carrier screen NEGATIVE 06/12/2025 05:11 am [facility] Alpha-Thalassemia carrier screen NEGATIVE 06/12/2025 05:11 am [facility] Cystic Fibrosis carrier screen NEGATIVE 06/12/2025 05:11 am [facility] Spinal Muscular Atrophy carrier screen NEGATIVE 2 SMN1 copies, SNP not present 06/12/2025 05:11 am [facility] For detailed report, see PDF See PDF 06/12/2025 05:11 am [facility] 06/12/2025 05:1 1 am [facility] Social History Observation Value Start Date End Date
--- OUTSIDE RECORDS SUMMARY | 2025-07-03 16:19 | XMS_ITS | Clinical Summary ---
Author Organization [facility] Address [address] [place] [address] Care Team Providers Care Instantizer Operator Name Role Phone Helio Campos MD Primary Care Provider [phone] Breana Loving PROCESSING LEAD Unavailable [phone] Allergies No known active allergies Medications Zoloft 25 MG tablet Take 25 mg by mouth Daily 03/18/2025 Active QUEtiapine (SEROquel) 25 MG tablet Take 50 mg by mouth at bedtime 04/14/2025 Active Active Problems Problem Noted Date Diagnosed Date Bipolar disorder 05/15/2025 Borderline personality disorder 05/15/2025 Estimated Date of Delivery Comme nts Yes 01/01/2026 Based on Ultraso und Encounters Date Type Department Care Team Description 06/15/2025 10:40 AM EDT Routine [facility] [address] [address] [place] [address] Cuong Diez, DO Second trimester ([facility]); First trimester ([facility]); 11 weeks gestation of ([facility]) 06/15/2025 Bamboo flowsheet [facility] [address]ELSEN [address] [place] [address] Cuong Diez, DO 06/12/2025 Abstract [facility] [address] [address] [place] [address] Cuong Diez, DO 06/12/2025 Abstract [facility] NIELSEN [address] [facility] [place] [address] Cuong Diez, 06/09/2025 Abstract [facility] NIELSEN [address] [facility] [place] [address] Cuong Diez, 05/29/2025 Clinisync Result Encounter NOMS External Department Unsolicited Columba Temple NP 05/15/2025 10:00 AM EDT Initial [facility] Ella [address] [address] GA: 7w0d 05/15/2025 9:30 AM EDT Ancillary Procedure [facility] Ell[facility] [place] [address] [phone] Missed menses; Positive urine test ([facility]) 04/23/2025 Clinisync Result Encounter [facility]OMS External Department Unsolicited Cuong Diez, 04/21/2025 Clinisync Result Encounter NOMS External Department Unsolicited Cuong Diez, 04/20/2025 Telephone [facility] Ella [address] [phone] Beata Greenberg MA 04/19/2025 9:30 AM EDT Office Visit [facility] [address] [place] [phone] Monty Lemons DO Warchol, Amy, NP Possible (Primary Dx); Amenorrhea 04/19/2025 Travel 04/10/2025 Clinisync Result Encounter NOMS External Department Unsolicited Cuong Diez DO from Last 3 Months Family History Relation [...] Sign Reading Time Taken Comments Blood Pressure 118/70 06/15/2025 10:55 AM EDT Pulse 111 04/19/2025 9:36 AM EDT Temperature 37.1 C (98.7 F) 04/19/2025 9:36 AM EDT Respiratory Rate - - Oxygen Saturation 99% 04/19/2025 9:36 AM EDT Inhaled Oxygen Concentration - - Weight 119 kg (262 lb 6.4 oz) 06/15/2025 10:55 A M EDT Height 149.9 cm (4' 11 ) 03/23/2025 9:02 AM EDT Body Mass Index 53 03/23/2025 9:02 AM EDT Plan of Treatment Upcoming Encounters Date Type Department Care Team (Late st Contact Info) Description 07/13/2025 2:30 PM EDT Routine [facility] [address] [facility] [place] [address] Betsy Tate PA [address] [facility] [place] [address] Health Maintenance Due Date Last Done Comments Influenza Vaccine (#1) 2025 4, 06/13/2013, 07/25/2012, Additional history exists Procedures Procedure Name Priority Date/Time Associated Diagnosis Comments POCT URINALYSIS DIPSTICK Routine 06/15/2025 11:00 AM EDT Second trimester ([facility]) First trimester ([facility]) 11 weeks gestation of ([facility]) HBSAG SCREEN Routine 05/29/2025 1:30 PM EDT RAPID PLASMA REAGIN, QUANT Routine 05/29/2025 1:30 PM EDT HCV ANTIBODY RFX TO QUANT PCR Routine 05/29/2025 1:30 PM EDT ALL RUBELLA IGG AB Routine 05/29/2025 1: 30 PM EDT HIV AB/P24 AG WITH REFLEX Routine 05/29/2025 1:30 PM EDT MLR HEMOGLOBIN A1C Routine 05/29/2025 1: 30 PM EDT HMHP ANTIBODY ID Routine 05/29/2025 1:30 PM EDT ALL TYPE AND SCREEN Routine 05/29/2025 1 :30 PM EDT ALL CBC WITH AUTO DIFF Routine 1:30 PM EDT BOX TEST Routine 05/29/2025 1:30 PM EDT CANNABINOID CONF, MS, UR Routine 05/29/2025 12:58 PM EDT ALL MISCELLANEOUS TEST Routine 12:58 PM EDT [facility] DRUG SCREEN RAPID (URINE) Routine 05/29/2025 12:58 PM EDT POCT URINALYSIS DIPSTICK Routine 05/15/2025 10:10 AM EDT Missed menses POCT , URINE Routine 05/15/2025 10:10 AM EDT Missed menses US OB TRANSVAGINAL Routine 05/15/2025 10 :06 AM EDT Missed menses Positive urine test ([facility]) [facility] PREG QUANT HCG Routine 04/23/2025 10 :09 AM EDT [facility] PREG QUANT HCG Routine 04/21/2025 10 :18 AM EDT POCT , URINE Routine 04/19/2025 9:52 AM EDT Possible ALL PROGESTERONE Routine 04/10/2025 11:5 0 AM EDT from Last 3 Months Results * POCT urinalysis dipstick manually resulted (06/15/2025 11:00 AM EDT) Only the most recent of2 resultswithin the time period is included. Pathologist [facility] [place] Color, UA Yellow Clarity, UA Clear Glucose, UA Negative Negative - 2000(110) ++++ mg/dL Bilirubin, UA Negative Negative - 4(70) +++ mg/dL Ketones, UA Negative Negative - 160(16) ++++ mg/dL Spec Grav, UA 1.025 1 - 1.03 Blood, UA Negative Negative - 50 Yogesh/mcL pH, UA 6.0 5 - 9 Protein, UA Negative Negative - 2000(20) ++++ mg/dL Urobilinogen, UA 1.0 0.2 - 12 mg/dL Leukocytes, UA Negative Negative - 500+++ Jaci/mcL Nitrite, UA Negative Negative - Positive Urine 06/15/2025 11:0 0 AM EDT us Cuong Diez DO POINT OF CARE TEST ENTER/EDIT OR DERABLES Final Result * BOX TEST (05/29/2025 1:30 PM EDT) [facility] BOX TEST SENT OUT Critical access hospital BOX1 [facility] hospital BOX2 05/29/25 [facility] 05/29/2025 1:30 PM EDT 05/29/2025 1:38 PM EDT Narrative [facility] - 05/29/2025 1:47 PM EDT us Columba Temple PROCESSING LEAD LAB BLOOD ORDERABLES Final Re sult [facility] * HBSAG SCREEN (05/29/2025 1:30 PM EDT) HBSAG SCREEN Negative Negative [facility] Comment: Performed at: - Lab[address] [id number] Tobacco Wetter: Ilya Manjarrez PhD, Phone: [phone] 05/29/2025 1:30 PM EDT 05/29/2025 1:38 PM EDT Narrative [facility] 05/30/2025 12:08 PM EDT Cuong Chary DO LAB BLOOD ORDERABLES Final Resul t Performing Organization Address [facility] Co de Phone Number [facility] * RAPID PLASMA REAGIN, QUANT (05/29/2025 1:30 PM EDT) Pathologist [facility] [place] RAPID PLASMA REAGIN, QUANT Non Reactive NonRea<1: 1 titer [facility] Comment: Please Note: This test does not meet current guidelines for screening and diagnosis of syphilis. This test is intended for following treatment response in patients being treated for syphilis infection. To screen for syphilis infection, a reflex cascade that includes both RPR and a treponema-specific assay should be utilized, such as Treponema pallidum (Syphilis) Screening [place] (634980) or Rapid Plasma Reagin (RPR) Test With Reflex to Quantitative RPR and Confirmatory Treponema pallidum Antibodies (538052). Performed at: [address] [id number] Tobacco Wetter: Ilya Manjarrez PhD, Phone: [phone] 05/29/2025 1:30 PM EDT 05/29/2025 1:38 PM EDT [facility] - 05/30/2025 12:08 PM EDT [employer] LAB BLOOD ORDERABLES Final Resul t Performing Organization Address [facility] Co de Phone Number [facility] * HIV AB/P24 AG WITH REFLEX (05/29/2025 1:30 PM EDT) [facility] HIV AB/P24 AG SCREEN Non Reactive Non Reactive [facility] Comment: HIV-1/HIV-2 antibodies and HIV-1 p24 antigen were NOT detected. There is no laboratory evidence of HIV infection. HIV Negative Performed at: [facility] [employer] [id number] Tobacco Wetter: Ilya Manjarrez PhD, Phone: [phone] 05/29/2025 1:30 PM EDT 05/29/2025 1:38 PM EDT Narrative [facility] - 05/30/2025 4:07 AM EDT us Cuong Chary DO LAB BLOOD ORDERABLES Final Resul t Performing Organization Address [facility] Co de Phone Number [facility] * HCV ANTIBODY RFX TO QUANT PCR (05/29/2025 1:30 PM EDT) Pathologist [facility] [place] HCV AB Non Reactive Non Reactive [facility] INTERPRETATION: Comment . [facility] Comment: Not infected with HCV unless early or acute infection is suspected (which may be delayed in an immunocompromised individual), or other evidence exists to indicate HCV infection. Performed at: - [facility] [id number] Tobacco Wetter: Ilya Manjarrez PhD, Phone: [phone] 05/29/2025 1:30 PM EDT 05/29/2025 1:38 PM EDT Narrative [facility] - 05/30/2025 7:09 AM EDT us Cuong Chary DO LAB BLOOD ORDERABLES Final Resul t Performing Organization Address [facility] de Phone Number [facility] * MLR HEMOGLOBIN A1C (05/29/2025 1:30 PM EDT) Pathologist [facility] [place] GLYCOHEMOGLOBIN A1C 4.9 4.5 - 6.2 % [facility] Comment: ADA RECOMMENDED LIMIT 4.0 - 6.0 ADA THERAPEUTIC TARGET < 7.0 ACTION SUGGESTED > 7.0 ESTIMATED AVERAGE GLUCOSE 94 mg/dL [facility] 05/29/2025 1:30 PM EDT 05/29/2025 1:38 PM EDT Narrative [facility] - 05/29/2025 2:52 PM EDT us Cuong Chary DO [facility] Final Result Performing Organization Address [facility] Co de Phone Number [facility] * HMHP ANTIBODY ID (05/29/2025 1:30 PM EDT) Pathologist [facility] ANTIBODY ID PANEL D RHIG [facility] Comment: PROBABLE ANTI-D DUE TO RHIG ADMINISTRATION ON 05/14/25. FURTHER WORKUP AT [employer] REQUEST. 05/29/2025 1:30 PM EDT 05/29/2025 1:38 PM EDT Narrative [facility] - 05/29/2025 2:38 PM EDT [facility] , us Cuong Chary DO CLINISYNC Final Result [facility] * ALL TYPE AND SCREEN (05/29/2025 1:30 PM EDT) BLOOD TYPE B Negative [facility] ANTIBODY SCREEN POSITIVE [facility] 05/29/2025 1:30 PM EDT 05/29/2025 1:38 PM EDT Narrative [facility] - 05/29/2025 2:38 PM EDT [facility] , us Cuong Chary DO CLIN[facility] Final Result Performing Organization Address City/[facility] Co de Phone Number [facility] * ALL RUBELLA IGG AB (05/29/2025 1:30 PM EDT) Pathologist [facility] [place] RUBELLA ANTIBODIES, IGG 1.03 Immune >0.99 index [facility] Comment: Non-immune <0.90 Equivocal 0.90 - 0.99 Immune >0.99 Performed at: - [facility] [id number] Tobacco Wetter: Ilya Manjarrez PhD, Phone: [phone] 05/29/2025 1:30 PM EDT 05/29/2025 1:38 PM EDT Narrative [facility] - 05/30/2025 7:09 AM EDT us Cuong Chary DO CLINIS[facility]NC Final Result [facility] * (ABNORMAL) ALL CBC WITH AUTO DIFF (05/29/2025 1:30 PM EDT) [facility] WBC 11.3(H) 4.0 - 11.0 10 3/uL [...] [facility] - 05/29/2025 1:54 PM EDT Cuong Chary DO CLINISYNC Final Result [facility] * (ABNORMAL) [facility]H DRUG SCREEN RAPID (URINE) (05/29/2025 12:58 PM [...] Narrative [facility] - 05/29/2025 2:02 PM EDT Cuong Chary DO CLINIS[facility] Final Result [facility] * CANNABINOID CONF, MS, UR (05/29/2025 12:58 PM EDT) CANNABINOID POSITIVE [facility] CARBOXY THC CONF, MS, UR >750 ng/mL TB Comment:Cutoff = 10 05/29/2025 12:5 8 PM EDT 05/29/2025 2:04 PM EDT Narrative [facility] - 06/04/2025 3:45 PM EDT [employer] DO LAB BLOOD ORDERABLES Final Resul t Performing Organization Address [facility]/ZIP Co de Phone Number [facility] * ALL MISCELLANEOUS TEST (05/29/2025 12:58 PM EDT) MISCELLANEOUS TEST COMMENT . [facility] Comment: Test Ordered: [id number] Tricyclic Antidepressant Conf Tricyclic Antidep Negative ng/mL UI Reference Range: [id number] Confirmation performed by Mass Spectrometry Please Note: Comment UI Reference Range: . Drug test results should be interpreted in the context of clinical information. Patient metabolic variables, specific drug chemistry, and specimen characteristics can affect test outcome. Technical consultation is available if a test result is inconsistent with an expected outcome. Email: [email or web address] Performed at: [facility] [id number] Tobacco Wetter: Ijeoma Lino PhD, Phone: [phone] Performed at: [facility] [id number] Tobacco Wetter: Ilya Manjarrez PhD, Phone: [phone] 05/29/2025 12:5 8 PM EDT 05/29/2025 2:05 PM EDT Narrative [facility] - 06/03/2025 5:08 AM EDT [id number] Tricyclic Antidepressants Confirmation, Urine Coung Chary DO CLINISYNC Final Result Performing Organization Address City/[facility]/ZIP Co de Phone Number [facility] TB * (ABNORMAL) POCT , urine manually resulted (05/15/2025 10:10 AM EDT) Only the most recent of2 resultswithin the time period is included. Preg Test, Ur Positive Negative Urine 05/15/2025 10:1 0 AM EDT us Cuong Chary DO POINT OF CARE TEST [...] 10:09 AM EDT) Only the most recent of2 resultswithin the time period is included. HCG QUANTITATIVE 275 mIU/mL [facility] Comment: 5-50 0.2-1 WEEK 50-500 1-2 WEEKS 100-5,000 2-3 WEEKS 500-10,000 3-4 WEEKS 1,000-50,000 4-5 WEEKS 10,000-100,000 5-6 WEEKS 15,000-200,000 6-8 WEEKS 10,000-100,000 2-3 MONTHS 04/23/2025 10:0 9 AM EDT 04/23/2025 10:22 AM EDT Narrative [facility] - 04/23/2025 11:21 AM EDT Cuong Chary DO CLINISYNC Final Result [facility] * ALL PROGESTERONE (04/10/2025 11:50 AM EDT) PROGESTERONE 9.5 . ng/mL [facility] Comment: Follicular phase 0.1 - 0.9 Luteal phase 1.8 - 23.9 Ovulation phase 0.1 - 12.0 First trimester 11.0 - 44.3 Second trimester 25.4 - 83.3 Third trimester 58.7 - 214.0 Postmenopausal 0.0 - 0.1 Performed at: [facility] [address] [id number] Tobacco Wetter: Ilya Manjarrez PhD, Phone: [phone] 04/10/2025 11:5 0 AM EDT 04/10/2025 11:52 AM EDT Narrative [facility] - 04/11/2025 4:09 AM EDT Cuong Chary DO CLINIS[facility]NC Final Result [facility] TB from Last 3 Months Insurance [employer] Care Teams Instantizer Operator Relationship Specialty Start Date End Date Helio Campos MD [address] [place] [address] PCP - General Family Medicine 04/05/23 Breana Loving NP [address] [place] [address] PCP - [facility] 12/30/2408/30
--- OUTSIDE RECORDS SUMMARY | 2025-07-03 16:19 | XMS_ITS | Encounter Summary ---
Author Organization [facility] Address [address] [place] [address] Care Team Providers Care Cotton Cleaner Name Role Phone Helio Campos MD Primary Care Provider [phone] Breana Loving HEALTHCARE MANAGEMENT CONSULTANT Unavailable [phone] Encounter Details Date Type Department Care Team (Late Contact Info) Description 06/12/2025 Abstract [facility] NIELSEN [address] [facility] [place] [address] Cuong Diez DO [address] [facility] [address] [place], [facility] Social History Tobacco Use Types Packs/Day Years [...] Department Care Team (Late Contact Info) Description 07/13/2025 2:30 PM EDT Routine LE[facility] NIELSEN [address] [facility] [place] [address] Betsy Tate PA [address] [facility] [address] [place], [facility] documented as of this encounter Visit Diagnoses Not on filedocumented in this encounter Care Teams Cotton Cleaner Relationship Specialty Start Date End Date Helio Campos MD [address] [place] [address] PCP - General Family Medicine 04/05/23 Breana Loving NP [address] [place] [address] PCP - [facility] 12/30/2408/30 documented as of this encounter
--- OUTSIDE RECORDS SUMMARY | 2025-07-03 16:19 | XMS_ITS | Encounter Summary ---
Author Organization [facility] Address [address] [place] [address] Care Team Providers Care Labor Relations Teacher Name Role Phone Heloi Campos MD Primary Care Provider [phone] Breana Loving PULLING MACHINE OPERATOR Unavailable [phone] Encounter Details Date Type Department Care Team (Late Contact Info) Description 06/12/2025 Abstract LE[facility] NIELSEN [address] [facility] [place] [address] Cuong Diez DO [address] [facility] [address] [facility] [address] Jaramillo, [facility] Social History Tobacco Use Types Packs/Day Years [...] 2:30 PM EDT Routine LEA NIELSEN [address] [facility] [place] [address] Betsy Tate PA [address] [place], [facility] [address] documented as of this encounter Visit Diagnoses Not on filedocumented in this encounter Care Teams Labor Relations Teacher Relationship Specialty Start Date End Date Helio Campos MD [address] [place] [address] PCP - General Family Medicine 04/05/23 Breana Loving NP [address] [place] [address] PCP - [facility] 12/30/2408/30 documented as of this encounter
--- OUTSIDE RECORDS SUMMARY | 2025-07-03 16:19 | XMS_ITS | Clinical Summary ---
Author Organization [employer] Address [id number] [address] [place] [address] Care Team Providers Care Kosher Sealer Name Role Phone Helio Campos MD Primary Care Provider [phone] Allergies No known active allergies Medications testosterone [...] on file Insurance [employer] Care Teams Kosher Sealer Relationship Specialty Start Date End Date Helio Campos MD PCP - General Family Medicine 04/04/23
--- OUTSIDE RECORDS SUMMARY | 2025-07-03 16:19 | XMS_ITS ---
Author Organization [facility] Source Produ ction (ClinicalSummary Clone) Address Unknown Care Team Providers Care Bilingual Recruiter Name Role Phone Unavailable Primary Care Physician Unavailab le Results * [UNITY] ANEUPLOIDY NIPT Performed by: [employer] Component Value Range Date Fraction 2.7% 06/09/2025 03 :54 am UT Rh(D) NIPT RhD NOT DETECTED 06/09/2025 03:54 am UT Sex Chromosome Aneuploidy NOT DETECTED 03:54 am UTC Monosomy X LOW RISK <1 in 10,000 2024 03:54 am UTC Trisomy 13 LOW RISK <1 in 10,000 2024 03:54 am UTC Trisomy 18 LOW RISK <1 in 10,000 2024 03:54 am UTC Trisomy 21 LOW RISK <1 in 10,000 2024 03:54 am UTC Sex MALE 06/09/2025 03:5 4 am UTC Gestation HERNANDEZ 06/09/20 03:54 am UT For detailed report, see PDF See PDF 06/09/2025 03:54 am UTC 06/09/2025 03:5 4 am UT Social History Observation Value Start Date End Date
--- OUTSIDE RECORDS SUMMARY | 2025-07-03 16:19 | XMS_ITS | Patient Health Record ---
Author Organization The [facility] in [place] Address [address] [place] [address] Care Team Providers Care Gelatin Powder Mixer Name Role Phone DeoAnnamariaCarole Primary Care Provider Allergies No Known Allergies Results Component Value Reference Range Notes AMYLASE Reviewed date:08/31/2024 07:27:27 PM Interpretation: Performing Lab: Notes/Report: [facility] , Amylase 97 25-115 U/L Performing Lab: see note ML - The [facility] LB CBC AUTO DIFF Reviewed date:08/31/2024 07:27:27 PM Interpretation: Performing Lab: Notes/Report: [facility] , White Blood Count 12.2 4.0-11.0 10 3/uL Red Blood Count 4.93 4.20-5.40 10 6/uL Hemoglobin 15.2 12.0-16.0 g/dL Hematocrit 43.7 36.0-48.0 % Mean Corpuscular Volume 88.6 81.0-99.0 fL Mean Corpuscular Hemoglobin 30.8 26.7-34.0 pg Mean Corpuscular HGB Conc 34.8 29.9-35.2 g/dL Red Cell Distribution Width 12.2 11.0-15.0 % Platelet Count 299 150-450 10 3/uL Mean Platelet Volume 8.7 9.5-13.5 fL Neutrophils Percent Auto 65.5 43.0-75.0 % Lymphocytes Percent Auto 24.1 20.5-60.0 % Monocytes Percent Auto 6.9 1.7-12.0 % Eosinophils Percent Auto 2.5 0.9-7.0 % Basophils Percent Auto 0.5 0.2-2.0 % Immature Granulocytes Pct Auto 0.5 0.0-0.5 % Neutrophils Absolute Auto 8.0 1.4-6.5 10 3/uL Lymphocytes Absolute Auto 3.0 1.2-3.8 10 3/uL Monocytes Absolute Auto 0.8 0.3-0.8 10 3/uL Eosinophils Absolute Auto 0.3 0.0-0.7 10 3/uL Basophils Absolute Auto 0.1 0.0-0.1 10 3/uL Immature Granulocytes Abs Auto 0.06 0.00-0.03 10 3/uL Performing Lab: see note ML - [facility] LB LIPASE Reviewed date:08/31/2024 07:27:27 PM Interpretation: Performing Lab: Notes/Report: [facility] , Lipase 50.0 16.0-77.0 U/L Performing Lab: see note ML - [facility] LB LIVER PROFILE Reviewed date:08/31/2024 07:27:27 PM Interpretation: Performing Lab: Notes/Report: [facility] , Bilirubin Total 0.4 0.2-1.0 mg/dL Bilirubin Direct 0.1 0.0-0.2 mg/dL Aspartate Amino Transferase 14 15-37 U/L Alanine Aminotransferase 27 14-59 U/L Alkaline Phosphatase 92 46-116 U/L Total Protein 7.5 6.4-8.2 g/dL Albumin Level 3.5 3.4-5.0 g/dL Globulin 4.0 Albumin Globulin Ratio 0.9 Performing Lab: see note ML - [facility] LB PROF CHEM 8 (BAS METB) Reviewed date:08/31/2024 07:27:27 PM Interpretation: Performing Lab: Notes/Report: [facility] , Sodium 141 136-145 mmol/L Potassium 4.0 3.5-5.1 mmol/L Chloride 104 98-107 mmol/L Carbon Dioxide 24.2 21.0-32.0 mmol/L Anion Gap 16.8 Glucose 100 74-106 mg/dL Blood Urea Nitrogen 14.0 7.0-18.0 mg/dL Creatinine 0.90 0.55-1.02 mg/dL Estimated GFR ( Peyton >60 >=60 mL/min/1.73m 2 Estimated GFR (Non- Reyna >60 >=60 mL/min/1.73m 2 BUN Creatinine Ratio 15.6 Calcium 9.1 8.5-10.1 mg/dL Performing Lab: see note - [facility] UA RANDOM W or MICROSCOPIC Reviewed date:08/31/2024 07:27:27 PM Interpretation: Performing Lab: Notes/Report: [facility] , Color Urine LT. YELLOW YELLOW Clarity Urine CLEAR CLEAR Specific Rutherford Urine 1.015 1.005-1.025 pH Urine 7.0 5.0-9.0 Protein Urine NEGATIVE NEG/TRACE mg/dL Glucose Urine UA NEGATIVE NEGATIVE mg/dL Bilirubin Urine NEGATIVE NEGATIVE Ketones Urine NEGATIVE NEGATIVE mg/dL Blood Urine NEGATIVE NEGATIVE Nitrite Urine NEGATIVE NEGATIVE Urobilinogen Urine 0.2 0.2-1.0 EU/dL Leukocyte Esterase Urine NEGATIVE NEGATIVE WBC Urine NONE SEEN NONE SEEN #/HPF RBC Urine NONE SEEN 0-2 #/HPF Bacteria Urine TRACE NONE SEEN #/HPF Mucus Urine NONE SEEN NONE SEEN Squamous Epithelial Cell Urine MANY NONE/RARE #/LPF Crystals Seen? None Seen None Seen #/HPF Cast Seen? NONE SEEN NONE SEEN #/LPF Urine Culture Indicated NO Performing Lab: see note - [facility] LB HCG Qualitative* Reviewed date:08/31/2024 07:27:27 PM Interpretation: Performing Lab: Notes/Report: [facility] , HCG Qualitative NEGATIVE NEGATIVE Performing Lab: see note - [facility] LB XR abdomen 1V Reviewed date:08/31/2024 07:27:27 PM Interpretation: Performing Lab: Notes/Report: Source Facility: [place] [address] [place] [address] XRay Report Signed Patient: KASH TRISTAN MR#: [id number] : 2000 Acct:[id number] Age/Sex: 24 / F ADM Date: 08/31/24 Loc: ER Attending Dr: Ordering Physician: Hari Hutton M.D. Date of Service: 08/31/24 Procedure(s): XR abdomen 1V Accession Number(s): [id number] cc: Jordan Love M.D.; Hari Hutton M.D. The [place] [address] Patient Name: KASH TRISTAN MRN: [facility]:[id number] date: 2000 Sex: F Assigned Patient Location: ER Current Patient Location: ER Accession/Order Number: [id number] Exam Date: 08/31/2024 14:05 Report Date: 08/31/2024 15:41 At the request of: HARI HUTTON Procedure: XR abdomen 1V EXAM: XR abdomen 1V HISTORY: Pain, possible constipation COMPARISON: None. TECHNIQUE: Supine KUB FINDINGS: Mild diffuse increased small bowel colon gas without focal distention. Moderate colonic stool. Soft tissues unremarkable. No calcification. Lung bases clear. XR/XR abdomen 1V IMPRESSION: Moderate colonic stool. Increased bowel gas without evidence of obstruction. Electronically authenticated by: TEA CACERES Date: 08/31/2024 15:41 Dictated By: Tea Caceres M.D. Signed By: 08/31/24 1543 DD/ 1541 TD/TT: Folder Seamer Automatic: RACHEL T4 Reviewed date:03/24/2025 02:44:38 PM Interpretation: Performing Lab: Notes/Report: [facility] Rachel T4 1.19 0.76-1.46 ng/dL Performing Lab: see note ML - [facility] LB GLYCOHEMOGLOBIN A1C Reviewed date:03/24/2025 02:44:38 PM Interpretation: Performing Lab: Notes/Report: [facility] , Glycohemoglobin A1C 5.3 4.5-6.2 % ACTION SUGGESTED ADA RECOMMENDED LIMIT 4.0 - 6.0 > 7.0 ADA THERAPEUTIC TARGET < 7.0 Estimated Average Glucose 105 Performing Lab: see note ML - [facility] LB PREG QUANT HCG Reviewed date:03/24/2025 02:44:38 PM Interpretation: Performing Lab: Notes/Report: [facility] HCG Quantitative <1 500-10,000 3-4 WEEKS 15,000-200,000 6-8 WEEKS 50-500 1-2 WEEKS 1,000-50,000 4-5 WEEKS 10,000-100,000 2-3 MONTHS 10,000-100,000 5-6 WEEKS 100-5,000 2-3 WEEKS 5-50 0.2-1 WEEK Performing Lab: see note ML - [facility] LB TSH Reviewed date:03/24/2025 02:44:38 PM Interpretation: Performing Lab: Notes/Report: [facility] , Thyroid Stimulating Hormone 3.180 0.358-3.740 uIU/mL Performing Lab: see note ML - [facility] LB DHEA, Serum Reviewed date:03/29/2025 01:16:45 PM Interpretation: Performing Lab: Notes/Report: [facility] , DHEA, Serum 279 31-701 ng/dL [address] [place] [address] [phone] Performed at: [facility] approved by the Food and Drug Administration. determined by [facility]. It has not been cleared or Crystal Attacher: Tiara Merchant MD, Phone: [phone] This test was developed and its performance characteristics Performing Lab: see note [facility] LB Luteinizing Hormone(LH) Reviewed date:03/25/2025 05:44:37 PM Interpretation: Performing Lab: Notes/Report: [facility] , Luteinizing Hormone(LH) 4.4 . mIU/mL Adult Female Range Luteal phase 1.0 - 11.4 Follicular phase 2.4 - 12.6 Ovulation phase 14.0 - 95.6 Postmenopausal 7.7 - 58.5 Performing Lab: see note [facility] LB FSH Reviewed date:03/25/2025 05:44:37 PM Interpretation: Performing Lab: Notes/Report: [facility] , FSH 9.3 . mIU/mL Adult Female Range Crystal Attacher: Ilya Manjarrez PhD, Phone: [phone] Ovulation phase 4.7 - 21.5 Luteal phase 1.7 - 7.7 Performed at: [address] [id number] Follicular phase 3.5 - 12.5 Postmenopausal 25.8 - 134.8 Performing Lab: see note [facility] DHEA-Sulfate Reviewed date:03/25/2025 05:44:37 PM Interpretation: Performing Lab: Notes/Report: [facility] , DHEA-Sulfate 386.0 110.0-431.7 ug/dL Performing Lab: see note [facility] Anti-Mullerian Hormone (AMH) Reviewed date:03/29/2025 01:16:45 PM Interpretation: Performing Lab: Notes/Report: [facility] , Anti-Mullerian Hormone (AMH) 0.939 . ng/mL AMH concentrations of >= 1.06 ng/mL is correlated with a polycystic ovarian syndrome (PCOS) may exhibit elevated 1.Jayant George Interferences in Immunoassays - still a threat. may be 2 to 5 fold higher than age-appropriate reference with other tumor markers. Elevated AMH is not specific for interval values. For assays employing antibodies, the possibility exists for serum AMH concentrations. AMH levels from PCOS patients Performed at: [employer] the study method with a slope of 0.94. Reference Range: Crystal Attacher: Rogelio Salmon MD, Phone: [phone] Females 20 - 25y: 1.23 - 11.51 determined by [facility]. It has not been cleared or approved [address] [place] [address] [id number] Clin. Chem. 2000; 46: 2234-5914. malignancy, and the assay should not be used exclusively to This test was developed and its performance characteristics by the Food and Drug Administration. to Carlineer et al. Fertility and Sterility. 2010: Females at risk of ovarian hyperstimulation syndrome or retrievable oocytes and higher odds of live according Median 4.70 94:[phone]. The current AMH test method correlates with diagnose or exclude an AMH-secreting ovarian tumor. Granulosa cell tumors of the ovary may secrete AMH along better response to ovarian stimulation, produced more interference by heterophile antibodies in the samples.1 Performing Lab: see note LC - [facility] LB PREG QUANT HCG Reviewed date:04/20/2025 04:55:30 PM Interpretation: Performing Lab: Notes/Report: [facility] , HCG Quantitative 29 500-10,000 3-4 WEEKS 5-50 0.2-1 WEEK 15,000-200,000 6-8 WEEKS 50-500 1-2 WEEKS 10,000-100,000 5-6 WEEKS 10,000-100,000 2-3 MONTHS 100-5,000 2-3 WEEKS 1,000-50,000 4-5 WEEKS Performing Lab: see note ML - [facility] LB HCG Qualitative* Reviewed date:04/20/2025 04:55:30 PM Interpretation: Performing Lab: Notes/Report: [facility] , HCG Qualitative POSITIVE NEGATIVE Performing Lab: see note ML - [facility] LB PREG QUANT HCG Reviewed date:04/23/2025 12:33:44 PM Interpretation: Performing Lab: Notes/Report: [facility] , HCG Quantitative 275 5-50 0.2-1 WEEK 50-500 1-2 WEEKS 100-5,000 2-3 WEEKS 500-10,000 3-4 WEEKS 1,000-50,000 4-5 WEEKS 10,000-100,000 5-6 WEEKS 15,000-200,000 6-8 WEEKS 10,000-100,000 2-3 MONTHS Performing Lab: see note ML - [facility] LB ANTIBODY ID PANEL Reviewed date:05/29/2025 02:51:20 PM Interpretation: Performing Lab: Notes/Report: [facility] , Antibody Identification D RHIG PROBABLE ANTI-D DUE TO RHIG ADMINISTRATION ON 05/14/25. FURTHER WORKUP AT [facility] REQUEST. CBC AUTO DIFF Reviewed date:05/29/2025 02:19:28 PM Interpretation: Performing Lab: Notes/Report: [facility] , White Blood Count 11.3 4.0-11.0 10 3/uL Red Blood Count 4.24 4.20-5.40 10 6/uL Hemoglobin 12.9 12.0-16.0 g/dL Hematocrit 36.5 36.0-48.0 % Mean Corpuscular Volume 86.1 81.0-99.0 fL Mean Corpuscular Hemoglobin 30.4 26.7-34.0 pg Mean Corpuscular HGB Conc 35.3 29.9-35.2 g/dL Red Cell Distribution Width 13.0 11.0-15.0 % Platelet Count 271 150-450 10 3/uL Mean Platelet Volume 9.0 9.5-13.5 fL Neutrophils Percent Auto 61.8 43.0-75.0 % Lymphocytes Percent Auto 28.6 20.5-60.0 % Monocytes Percent Auto 7.1 1.7-12.0 % Eosinophils Percent Auto 1.7 0.9-7.0 % Basophils Percent Auto 0.4 0.2-2.0 % Immature Granulocytes Pct Auto 0.4 0.0-0.5 % Neutrophils Absolute Auto 7.0 1.4-6.5 10 3/uL Lymphocytes Absolute Auto 3.2 1.2-3.8 10 3/uL Monocytes Absolute Auto 0.8 0.3-0.8 10 3/uL Eosinophils Absolute Auto 0.2 0.0-0.7 10 3/uL Basophils Absolute Auto 0.1 0.0-0.1 10 3/uL Immature Granulocytes Abs Auto 0.04 0.00-0.03 10 3/uL Performing Lab: see note ML - [facility] DRUG SCREEN RAPID (URINE) Reviewed date:05/29/2025 02:19:29 PM Interpretation: Performing Lab: Notes/Report: [facility] , Cannabinoid Screen Urine POSITIVE NEGATIVE Phencyclidine Screen Urine NEGATIVE NEGATIVE Cocaine Screen Urine NEGATIVE NEGATIVE Methamphetamines Screen Urine NEGATIVE NEGATIVE Opiate Screen Urine NEGATIVE NEGATIVE Amphetamine Screen Urine NEGATIVE NEGATIVE Benzodiazepines Screen Urine NEGATIVE NEGATIVE Tricyclic Antidepressant Urine POSITIVE NEGATIVE Methadone Screen Urine NEGATIVE NEGATIVE Barbiturates Screen Urine NEGATIVE NEGATIVE Oxycodone Screen Urine NEGATIVE NEGATIVE Buprenorphine Screen Urine NEGATIVE NEGATIVE mAMP (Methamphetamine): 500 ng/mL MTD (Methadone): 200 ng/mL BUP (Buprenorphine): 10 ng/mL THC (Cannabinoids): 50 ng/mL DRUG CLASS TEST SYSTEM CUT-OFF CONCENTRATIONS ARE JOHN (Cocaine): 150 ng/mL PCP (Phencyclidine): 25 ng/mL BAR (Barbiturates): 200 ng/mL BZO (Benzodiazepines): 150 ng/mL OPI (Opiates): 100 ng/mL OXY (Oxycodone): 100 ng/mL AMP (Amphetamine): 500 ng/mL TCA (Trycyclic Antidepressants): 300 ng/mL FOLLOWS: Performing Lab: see note ML - [facility] GLYCOHEMOGLOBIN A1C Reviewed date:05/29/2025 03:30:16 PM Interpretation: Performing Lab: Notes/Report: [facility] , Glycohemoglobin A1C 4.9 4.5-6.2 % ACTION SUGGESTED > 7.0 ADA RECOMMENDED LIMIT 4.0 - 6.0 ADA THERAPEUTIC TARGET < 7.0 Estimated Average Glucose 94 Performing Lab: see note ML - [facility] LB LAB TESTING Reviewed date:06/03/2025 09:27:38 AM Interpretation: Performing Lab: Notes/Report: [id number] Tricyclic Antidepressants Confirmation, Urine [facility] , Miscellaneous Test COMMENT . Reference Range: . Performed at: - [facility] Test Ordered: [id number] Tricyclic Antidepressant Conf Email: [email or web address] Drug test results should be interpreted in the context of clinical Please Note: Comment UI Confirmation performed by Mass Spectrometry consultation is available if a test result is inconsistent with an expected outcome. Crystal Attacher: Ijeoma Lino PhD, Phone: [phone] [address], [place] [phone] Tricyclic Antidep Negative ng/mL UI Crystal Attacher: Ilya Manjarrez PhD, Phone: [phone] Reference Range: Quirpc=728 Performed at: [facility] RT specimen characteristics can affect test outcome. Technical information. Patient metabolic variables, specific drug chemistry, and [address] [place], [place] [id number] Performing Lab: see note - [facility] LB MAGNESIUM Reviewed date:06/02/2025 11:12:43 AM Interpretation: Performing Lab: Notes/Report: [facility] , Magnesium 1.5 1.8-2.4 mg/dL Performing Lab: see note - [facility] LB PROF 14(COMP METB) Reviewed date:06/02/2025 11:12:43 AM Interpretation: Performing Lab: Notes/Report: [facility] , Sodium 138 136-145 mmol/L Potassium 3.3 3.5-5.1 mmol/L Chloride 103 98-107 mmol/L Carbon Dioxide 24.1 21.0-32.0 mmol/L Anion Gap 14.2 Glucose 98 74-106 mg/dL Blood Urea Nitrogen 8.0 7.0-18.0 mg/dL Creatinine 0.75 0.55-1.02 mg/dL Estimated GFR ( Peyton >60 >=60 mL/min/1.73m 2 Estimated GFR (Non- Reyna >60 >=60 mL/min/1.73m 2 BUN Creatinine Ratio 10.7 Calcium 9.4 8.5-10.1 mg/dL Bilirubin Total 0.3 0.2-1.0 mg/dL Aspartate Amino Transferase 16 15-37 U/L Alanine Aminotransferase 27 14-59 U/L Alkaline Phosphatase 80 46-116 U/L Total Protein 7.8 6.4-8.2 g/dL Albumin Level 3.7 3.4-5.0 g/dL Globulin 4.1 Albumin Globulin Ratio 0.9 Performing Lab: see note - [facility] LB RUBELLA AB IGG Reviewed date:06/02/2025 11:12:43 AM Interpretation: Performing Lab: Notes/Report: [facility] , Rubella Antibodies, IgG 1.03 Immune > 0.99 index Non-immune <0.90 Performed at: [facility] Immune >0.99 Crystal Attacher: Ilya Manjarrez PhD, Phone: [phone] Equivocal 0.90 - 0.[address] [place] [phone] Performing Lab: see note [facility] LB Type and Screen Reviewed date:05/29/2025 02:51:20 PM Interpretation: Performing Lab: Notes/Report: [facility] , Blood Type B Negative Antibody Screen POSITIVE HIV Ab/p24 Ag with Reflex Reviewed date:06/02/2025 11:12:43 AM Interpretation: Performing Lab: Notes/Report: [facility] , HIV Ab/p24 Ag Screen Non Reactive Non Reactive detected. There is no laboratory evidence of HIV infection. [address] [place] [address] [phone] HIV Negative Crystal Attacher: Ilya Manjarrez PhD, Phone: [phone] HIV-1/HIV-2 antibodies and HIV-1 p24 antigen were NOT Performed at: [facility] Performing Lab: see note [facility] LB Rapid Plasma Reagin, Quant Reviewed date:06/02/2025 11:12:43 AM Interpretation: Performing Lab: Notes/Report: [facility] , Rapid Plasma Reagin, Quant Non Reactive NonRea<1:1 titer Treponema pallidum (Syphilis) Screening Leon (200534) or intended for following treatment response in patients being treated for syphilis infection. To screen for syphilis (703576). RPR and Confirmatory Treponema pallidum Antibodies screening and diagnosis of syphilis. This test is infection, a reflex cascade that includes both RPR and a Performed at: [facility] treponema-specific assay should be utilized, such as [address] [place] [phone] Crystal Attacher: Ilya Manjarrez PhD, Phone: [phone] Rapid Plasma Reagin (RPR) Test With Reflex to Quantitative Please Note: This test does not meet current guidelines for Performing Lab: see note - [facility] LB HCV Antibody RFX to Quant PC R Reviewed date:06/02/2025 11:12:43 AM Interpretation: Performing Lab: Notes/Report: [facility] , HCV Ab Non Reactive Non Reactive Interpretation: Comment . suspected (which may be delayed in an immunocompromised Performed at: [facility] Crystal Attacher: Ilya Manjarrez PhD, Phone: [phone] Not infected with HCV unless early or acute infection is infection. individual), or other evidence exists to indicate HCV [address] [place] [phone] Performing Lab: see note - [facility] LB HBsAg Screen Reviewed date:06/02/2025 11:12:43 AM Interpretation: Performing Lab: Notes/Report: [facility] , HBsAg Screen Negative Negative Crystal Attacher: Ilya Manjarrez PhD, Phone: [phone] [address] [place] [phone] Performed at: [facility] Performing Lab: see note - [facility] LB Cannabinoid Conf, MS, UR Reviewed date:06/04/2025 04:05:51 PM Interpretation: Performing Lab: Notes/Report: [facility] , Cannabinoid POSITIVE Carboxy THC Conf, MS, UR >750 ng/mL Cut off = 10 Performing Lab: see note - [facility] LB UA Micro, reflex to culture Reviewed date:06/02/2025 11:12:43 AM Interpretation: Performing Lab: Notes/Report: [facility] , Color Urine LT. YELLOW YELLOW Clarity Urine SL CLOUDY CLEAR Specific Rutherford Urine 1.010 1.005-1.025 pH Urine 6.5 5.0-9.0 Protein Urine NEGATIVE NEG/TRACE mg/dL Glucose Urine UA NEGATIVE NEGATIVE mg/dL Bilirubin Urine NEGATIVE NEGATIVE Ketones Urine NEGATIVE NEGATIVE mg/dL Blood Urine NEGATIVE NEGATIVE Nitrite Urine NEGATIVE NEGATIVE Urobilinogen Urine 0.2 0.2-1.0 EU/dL Leukocyte Esterase Urine NEGATIVE NEGATIVE WBC Urine 0-2 NONE SEEN #/HPF RBC Urine NONE SEEN 0-2 #/HPF Bacteria Urine TRACE NONE SEEN #/HPF Mucus Urine NONE SEEN NONE SEEN Squamous Epithelial Cell Urine MANY NONE/RARE #/LPF Crystals Seen? None Seen None Seen #/HPF Cast Seen? NONE SEEN NONE SEEN #/LPF Urine Culture Indicated NO Performing Lab: see note ML - [facility] LB [place]on Box Reviewed date:05/29/2025 02:19:29 PM Interpretation: Performing Lab: Notes/Report: [facility] , BOX Test Sent Out [place] BOX Test Reference Lab [facility] BOX Test Date Sent 05/29/25 Performing Lab: see note ML - [facility] LB CBC AUTO DIFF Reviewed date:06/02/2025 11:12:43 AM Interpretation: Performing Lab: Notes/Report: [facility] , White Blood Count 14.0 4.0-11.0 10 3/uL Red Blood Count 3.92 4.20-5.40 10 6/uL Hemoglobin 12.2 12.0-16.0 g/dL Hematocrit 33.7 36.0-48.0 % Mean Corpuscular Volume 86.0 81.0-99.0 fL Mean Corpuscular Hemoglobin 31.1 26.7-34.0 pg Mean Corpuscular HGB Conc 36.2 29.9-35.2 g/dL Red Cell Distribution Width 12.7 11.0-15.0 % Platelet Count 251 150-450 10 3/uL Mean Platelet Volume 9.0 9.5-13.5 fL Neutrophils Percent Auto 75.4 43.0-75.0 % Lymphocytes Percent Auto 15.5 20.5-60.0 % Monocytes Percent Auto 7.6 1.7-12.0 % Eosinophils Percent Auto 0.7 0.9-7.0 % Basophils Percent Auto 0.3 0.2-2.0 % Immature Granulocytes Pct Auto 0.5 0.0-0.5 % Neutrophils Absolute Auto 10.6 1.4-6.5 10 3/uL Lymphocytes Absolute Auto 2.2 1.2-3.8 10 3/uL Monocytes Absolute Auto 1.1 0.3-0.8 10 3/uL Eosinophils Absolute Auto 0.1 0.0-0.7 10 3/uL Basophils Absolute Auto 0.0 0.0-0.1 10 3/uL Immature Granulocytes Abs Auto 0.07 0.00-0.03 10 3/uL Performing Lab: see note ML - [facility] LB Urine Culture, Routine Reviewed date:06/02/2025 11:12:43 AM Interpretation: Performing Lab: Notes/Report: [facility] , Urine Culture, Routine See Below For Report Urine Culture, Routine Urine Culture, Routine Mixed urogenital dean Urine Culture, Routine Urine Culture, Routine 50,000-100,000 colony forming units per mL Urine Culture, Routine Urine Culture, Routine Performed at: [facility] Urine Culture, Routine Urine Culture, Routine [address], [place] [phone] Urine Culture, Routine Urine Culture, Routine Crystal Attacher: Ilya Manjarrez PhD, Phone: [phone] Urine Culture, Routine Performing Lab: see note - [facility] LB SEE REPORT - Line Operator Id information not found for OBX-specific agent producer legend Type and Screen Reviewed date:05/15/2025 09:29:49 AM Interpretation: Performing Lab: Notes/Report: [facility] , Blood Type B Negative Antibody Screen NEGATIVE UA RANDOM W or MICROSCOPIC Reviewed date:05/15/2025 09:29:49 AM Interpretation: Performing Lab: Notes/Report: [facility] , Color Urine LT. YELLOW YELLOW Clarity Urine CLEAR CLEAR Specific [place] Urine 1.020 1.005-1.025 pH Urine 6.5 5.0-9.0 Protein Urine NEGATIVE NEG/TRACE mg/dL Glucose Urine UA NEGATIVE NEGATIVE mg/dL Bilirubin Urine NEGATIVE NEGATIVE Ketones Urine NEGATIVE NEGATIVE mg/dL Blood Urine NEGATIVE NEGATIVE Nitrite Urine NEGATIVE NEGATIVE Urobilinogen Urine 0.2 0.2-1.0 EU/dL Leukocyte Esterase Urine NEGATIVE NEGATIVE WBC Urine 0-2 NONE SEEN #/HPF RBC Urine 0-2 0-2 #/HPF Bacteria Urine TRACE NONE SEEN #/HPF Mucus Urine NONE SEEN NONE SEEN Squamous Epithelial Cell Urine MODERATE NONE/RARE #/LPF Crystals Seen? None Seen None Seen #/HPF Cast Seen? NONE SEEN NONE SEEN #/LPF Urine Culture Indicated NO Performing Lab: see note ML - [facility] LB PROF 14(COMP METB) Reviewed date:05/15/2025 09:29:49 AM Interpretation: Performing Lab: Notes/Report: [facility] , Sodium 135 136-145 mmol/L Potassium 3.4 3.5-5.1 mmol/L Chloride 104 98-107 mmol/L Carbon Dioxide 24.7 21.0-32.0 mmol/L Anion Gap 9.7 Glucose 87 74-106 mg/dL Blood Urea Nitrogen 10.0 7.0-18.0 mg/dL Creatinine 0.74 0.55-1.02 mg/dL Estimated GFR ( Peyton >60 >=60 mL/min/1.73m 2 Estimated GFR (Non- Reyna >60 >=60 mL/min/1.73m 2 BUN Creatinine Ratio 13.5 Calcium 9.3 8.5-10.1 mg/dL Bilirubin Total 0.3 0.2-1.0 mg/dL Aspartate Amino Transferase 17 15-37 U/L Alanine Aminotransferase 44 14-59 U/L Alkaline Phosphatase 91 46-116 U/L Total Protein 7.3 6.4-8.2 g/dL Albumin Level 3.3 3.4-5.0 g/dL Globulin 4.0 Albumin Globulin Ratio 0.8 Performing Lab: see note ML - [facility] LB PREG QUANT HCG Reviewed date:05/15/2025 09:29:49 AM Interpretation: Performing Lab: Notes/Report: [facility] , HCG Quantitative 26599 1,000-50,000 4-5 WEEKS 50-500 1-2 WEEKS 10,000-100,000 2-3 MONTHS 10,000-100,000 5-6 WEEKS 100-5,000 2-3 WEEKS 15,000-200,000 6-8 WEEKS 500-10,000 3-4 WEEKS 5-50 0.2-1 WEEK Performing Lab: see note ML - [facility] LB CBC AUTO DIFF Reviewed date:05/15/2025 09:29:49 AM Interpretation: Performing Lab: Notes/Report: [facility] , White Blood Count 15.3 4.0-11.0 10 3/uL Red Blood Count 4.29 4.20-5.40 10 6/uL Hemoglobin 13.2 12.0-16.0 g/dL Hematocrit 36.8 36.0-48.0 % Mean Corpuscular Volume 85.8 81.0-99.0 fL Mean Corpuscular Hemoglobin 30.8 26.7-34.0 pg Mean Corpuscular HGB Conc 35.9 29.9-35.2 g/dL Red Cell Distribution Width 12.8 11.0-15.0 % Platelet Count 274 150-450 10 3/uL Mean Platelet Volume 9.0 9.5-13.5 fL Neutrophils Percent Auto 63.8 43.0-75.0 % Lymphocytes Percent Auto 24.3 20.5-60.0 % Monocytes Percent Auto 9.0 1.7-12.0 % Eosinophils Percent Auto 1.8 0.9-7.0 % Basophils Percent Auto 0.4 0.2-2.0 % Immature Granulocytes Pct Auto 0.7 0.0-0.5 % Neutrophils Absolute Auto 9.8 1.4-6.5 10 3/uL Lymphocytes Absolute Auto 3.7 1.2-3.8 10 3/uL Monocytes Absolute Auto 1.4 0.3-0.8 10 3/uL Eosinophils Absolute Auto 0.3 0.0-0.7 10 3/uL Basophils Absolute Auto 0.1 0.0-0.1 10 3/uL Immature Granulocytes Abs Auto 0.11 0.00-0.03 10 3/uL Performing Lab: see note ML - [facility] LB PREG QUANT HCG Reviewed date:04/21/2025 10:56:49 AM Interpretation: Performing Lab: Notes/Report: [facility] , HCG Quantitative 97 10,000-100,000 5-6 WEEKS 5-50 0.2-1 WEEK 10,000-100,000 2-3 MONTHS 100-5,000 2-3 WEEKS 1,000-50,000 4-5 WEEKS 500-10,000 3-4 WEEKS 50-500 1-2 WEEKS 15,000-200,000 6-8 WEEKS Performing Lab: see note ML - [facility] Progesterone Reviewed date:04/13/2025 08:29:18 AM Interpretation: Performing Lab: [facility] Pro[facility] 9.5 . ng/mL Luteal phase 1.8 - 23.9 Crystal Attacher: Ilya Manjarrez PhD, Phone: [phone] First trimester 11.0 - 44.3 Postmenopausal 0.0 - 0.1 Third trimester 58.7 - 214.0 Follicular phase 0.1 - 0.[address] [place] [phone] Performed at: [facility] Second trimester 25.4 - 83.3 Ovulation phase 0.1 - 12.0 Performing Lab: see note - [facility] LB CBC AUTO DIFF Reviewed date:03/24/2025 02:44:38 PM Interpretation: Performing Lab: Notes/Report: [facility] , White Blood Count 9.5 4.0-11.0 10 3/uL Red Blood Count 4.54 4.20-5.40 10 6/uL Hemoglobin 13.9 12.0-16.0 g/dL Hematocrit 39.1 36.0-48.0 % Mean Corpuscular Volume 86.1 81.0-99.0 fL Mean Corpuscular Hemoglobin 30.6 26.7-34.0 pg Mean Corpuscular HGB Conc 35.5 29.9-35.2 g/dL Red Cell Distribution Width 12.4 11.0-15.0 % Platelet Count 262 150-450 10 3/uL Mean Platelet Volume 9.3 9.5-13.5 fL Neutrophils Percent Auto 57.4 43.0-75.0 % Lymphocytes Percent Auto 31.6 20.5-60.0 % Monocytes Percent Auto 7.5 1.7-12.0 % Eosinophils Percent Auto 2.8 0.9-7.0 % Basophils Percent Auto 0.4 0.2-2.0 % Immature Granulocytes Pct Auto 0.3 0.0-0.5 % Neutrophils Absolute Auto 5.5 1.4-6.5 10 3/uL Lymphocytes Absolute Auto 3.0 1.2-3.8 10 3/uL Monocytes Absolute Auto 0.7 0.3-0.8 10 3/uL Eosinophils Absolute Auto 0.3 0.0-0.7 10 3/uL Basophils Absolute Auto 0.0 0.0-0.1 10 3/uL Immature Granulocytes Abs Auto 0.03 0.00-0.03 10 3/uL Performing Lab: see note ML - [facility] LB TSH Reviewed date:02/16/2025 01:54:56 PM Interpretation: Performing Lab: Notes/Report: [facility] , Thyroid Stimulating Hormone 3.202 0.358-3.740 uIU/mL Performing Lab: see note ML - [facility] LB PROF 14(COMP METB) Reviewed date:02/16/2025 01:54:56 PM Interpretation: Performing Lab: Notes/Report: [facility] , Sodium 140 136-145 mmol/L Potassium 3.9 3.5-5.1 mmol/L Chloride 105 98-107 mmol/L Carbon Dioxide 24.6 21.0-32.0 mmol/L Anion Gap 14.3 Glucose 97 74-106 mg/dL Blood Urea Nitrogen 17.0 7.0-18.0 mg/dL Creatinine 0.86 0.55-1.02 mg/dL Estimated GFR ( Peyton >60 >=60 mL/min/1.73m 2 Estimated GFR (Non- Reyna >60 >=60 mL/min/1.73m 2 BUN Creatinine Ratio 19.8 Calcium 9.3 8.5-10.1 mg/dL Bilirubin Total 0.4 0.2-1.0 mg/dL Aspartate Amino Transferase 24 15-37 U/L Alanine Aminotransferase 44 14-59 U/L Alkaline Phosphatase 103 46-116 U/L Total Protein 7.9 6.4-8.2 g/dL Albumin Level 3.7 3.4-5.0 g/dL Globulin 4.2 Albumin Globulin Ratio 0.9 Performing Lab: see note ML - [facility] LB PREG QUANT HCG Reviewed date:02/16/2025 01:54:56 PM Interpretation: Performing Lab: Notes/Report: [facility] , HCG Quantitative <1 5-50 0.2-1 WEEK 100-5,000 2-3 WEEKS 15,000-200,000 6-8 WEEKS 50-500 1-2 WEEKS 1,000-50,000 4-5 WEEKS 500-10,000 3-4 WEEKS 10,000-100,000 2-3 MONTHS 10,000-100,000 5-6 WEEKS Performing Lab: see note ML - [facility] LB Reason For Referral No Information Medications Medication SIG (Take, Route, Frequency, Duration) Notes Start Date End Date Status Virasal 27.5 % 1 application as nee ded Externally Once a day 07/01/2024 Active Vraylar 3 MG 1 capsule Oral Once a day; Duration: 30 days Active Venlafaxine HCl ER 75 MG 1 capsule with food Orally Once a day; Duration: 30 days 07/01/2024 Active Social History Alcohol Screen (Audit-C) Question Answer Notes Did you have a drink contain ing alcohol in the past year? Yes How often did you have 6 or more drinks on one occasion in the past year? Never (0 point) How many drinks did you have on a typical day when you were drinking in the past year? 3 or 4 drinks (1 point) How often did you have a dri nk containing alcohol in the past year? 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 (453788961) Other specified conditions associated with female genital organs and menstrual cycle (N94.89) Active confirmed Problem Somnolence (55309632) Somnolence (R40.0) Active confirmed Problem Sleep apnea (47547927) Severe sleep apnea (G47.30) Active confirmed Problem Transsexual (finding) (098236954) 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) Active confirmed Problem Mixed anxiety and depressive disorder (564809531) Anxiety and depression (F41.8) Active confirmed Encounters Encounter Location Date Provider Diagnosis [facility] [address] [place] [address] 08/08/2024 Carole Desouza Anxiety and depression F41.8 [facility] [address] [place] [address] 08/11/2024 Carole Desouza Assessments Encounter Date Diagnosis (ICD Code) Assessment Notes Treatment Notes Treatment Clinical Notes Section Notes 08/08/2024 Anxiety and depression (ICD-10 - F41.8) Plan Of Treatment Pending Test Test Name Order Date Sleep study - Diagnostic Polysonogram US PELVIS AND TRANSVAG 06/22/2023 Insurance Providers Payer Name Payer Address Payer Phone Subscriber Number Group Number Insured Name Patient Relationship to Insured Coverage Start Date Coverage End Date [employer] [place] [employer] [address] [place] [address] [id number] Kash Tristan Self - patient is the insured Medical (General) History Medical History History ICD Code Severe sleep apnea G47.30 Hospitalization History Reason Date(Month/Year) [facility] 08/2022
--- OUTSIDE RECORDS SUMMARY | 2025-07-03 16:19 | XMS_ITS | Encounter Summary ---
Author Organization [facility] Address [address] [place] [address] Care Team Providers Care Decision Science Analyst Name Role Phone Helio Campos MD Primary Care Provider [phone] Breana Loving [employer]SEM[employer] Unavailable [phone] Encounter Details Date Type Department Care Team (Late Contact Info) Description 06/09/2025 Abstract [facility]A NIELSEN [address] [address] Cuong Diez DO [address] Deanna Jaramillo, [facility]11 Social History Tobacco Use Types Packs/Day [...] 2:30 PM EDT Routine LEA NIELSEN [address] [address] Betsy Tate PA [address] [place], [facility]11 documented as of this encounter Visit Diagnoses Not on filedocumented in this encounter Care Teams Decision Science Analyst Relationship Specialty Start Date End Date Helio Campos MD [address] [place] [address] PCP - General Family Medicine 04/05/23 Breana Loving NP [address] [place] [address] PCP - [facility] 12/30/2408/30 documented as of this encounter
--- OUTSIDE RECORDS SUMMARY | 2025-07-03 16:23 | XMS_ITS | CCD ---
Author Organization [facility] Care Team Providers Care Termite Control Service Representative Name Role Phone MD Helio Florian Primary Care Provider [phone] MD Param Rao Admit Provider MD Param [...] Unavailable Helio Florian MD Primary Care Provider [phone] Dante Valadez Attending Unavailab Dante Corral Admitting Unavailab Helio Cornejo Primary Care Unavailable Marcio Posada NP Unavailable [phone] CUONG DIEZ Attending Unavailable CUONG DIEZ Referring Unavailable CUONG DIEZ Attending Unavailable MARCIO POSADA Attending Unavailable Medications Current Medications Medication [...] 2022 12:00am QUEtiapine 25 mg oral tablet (9 sources) Atypical Antipsychotic Start: 04-14-2025 take 2 tablets by mouth at bedtime QUEtiapine (SEROquel) 25 MG tablet Take 50 mg by mouth at bedtime 04/14/2025 Active Start: 04-14-2025 take 1 tablet by geremias th at bedtime QUEtiapine (SEROquel) 25 MG tablet Take 25 mg by mouth at bedtime 04/14/2025 Active sertraline 25 mg oral tablet (13 sources) Serotonin Reuptake Inhibitor Start: 03-18-2025 take [...] Translations: [Amenorrhea, unspecified] 04-19-2025 Chronic Mood disorders (8 sources) Bipolar disorder; Translations: [Bipolar disorder, unspecified] [...] 10-04-2021 Chronic Other and delivery including normal (7 sources) Urine test positive; Translations: [Encounter for test, result positive] 05-06-2025 Episodic Other screening for suspected conditions (not mental disorders or infectious disease) (2 sources) Possible ; Translations: [Encounter for test, result unknown] 04-19-2025 Episodic Personality disorders (6 sources) Borderline personality disorder; Translations: [Borderline personality disorder] Onset: 05-15-2025 05-15-2025 Chronic Residual codes; unclassified (1 source) Gestation period, 7 weeks; Translations: [Less than 8 weeks gestation of ] 05-15-2025 Episodic Residual codes; unclassified (2 sources) Gestation period, 11 weeks; Translations: [11 weeks gestation of ] 06-15-2025 Episodic Substance-related disorders (1 source) Nicotine dependence, [...] 10-05-2021 Episodic Other aftercare (1 source) Other long-term (current) drug therapy; Translations: [OTH ASSISTED CURRENT DRUG THERAPY] Onset: 10-05-2021 Episodic Residual [...] Test Name Value Interpretation Reference Range Facility Urinalysis macro (dipstick) panel (U)on 06-15-2025 Bilirubin, UA Negative Negative - 4(70) +++ mg/dL [facility] Blood, UA Negative Negative - 50 Yogesh/mcL [facility] Clarity, UA Clear [facility] Color, UA Yellow [facility] Glucose, UA Negative Negative - 1999(110) ++++ mg/dL [facility] Interpretation and review of laboratory results Normal [facility] Ketones, UA Negative Negative - 160(16) ++++ mg/dL [facility] Leukocytes, UA Negative Negative - 500+++ Jaci/mcL [facility] Nitrite, UA Negative Negative - Positive [facility] pH, UA 6 5 - 9 [facility] Protein, UA Negative Negative - 1999(20) ++++ mg/dL [facility] Spec Grav, UA 1.025 1 - 1.03 [facility] Urobilinogen, UA 1.0 0.2 - 12 mg/dL [facility] BOX TESTon 05-29-2025 BOX TEST SENT OUT [facility] BOX1 [facility] BOX2 05/29/25 [facility] HCG ( test) Ql (U)o n 05-15-2025 Interpretation and review of laboratory results Abnormal [facility] Preg Test, Ur Positive Negative [facility] US OB TRANSVAGINALon 025 US OB TRANSVAGINAL FINDINGS: A single intrauterine gestational [...] UA Negative Negative - 4(70) +++ mg/dL [facility] Blood, UA Negative Negative - 50 Yogesh/mcL [facility] Clarity, UA Clear [facility] Color, UA Yellow [facility] Glucose, UA Negative Negative - 1999(110) ++++ mg/dL [facility] Interpretation and review of laboratory results Normal [facility] Ketones, UA Negative Negative - 160(16) ++++ mg/dL [facility] Leukocytes, UA Negative Negative - 500+++ Jaci/mcL [facility] Nitrite, UA Negative Negative - Positive [facility] pH, UA 6 5 - 9 [facility] Protein, UA Negative Negative - 1999(20) ++++ mg/dL [facility] Spec Grav, UA 1.015 1 - 1.03 [facility] Urobilinogen, UA 1.0 0.2 - 12 mg/dL [facility] TB PREG QUANT HCGon 025 HCG QUANTITATIVE 275 mIU/mL [facility] Comment on above: 5-50 0.2-1 WEEK 50-500 1-2 WEEKS 100-5,000 2-3 WEEKS 500-10,000 3-4 WEEKS 1,000-50,000 4-5 WEEKS 10,000-100,000 5-6 WEEKS 15,000-200,000 6-8 WEEKS 10,000-100,000 2-[facility] 025 HCG QUANTITATIVE 97 mIU/mL [facility] Comment on above: 5-50 0.2-1 WEEK 50-500 1-2 WEEKS 100-5,000 2-3 WEEKS 500-10,000 3-4 WEEKS 1,000-50,000 4-5 WEEKS 10,000-100,000 5-6 WEEKS 15,000-200,000 6-8 WEEKS 10,000-100,000 2-3 MONTHS [facility] HCG ( test) Ql (U)o n 04-19-2025 Interpretation and review of laboratory results Normal [facility] Preg Test, Ur Negative Negative [facility] ALL PROGESTERONEon 5 PROGESTERONE 9.5 ng/mL . [facility] Comment on above: Follicular phase 0. 1 - 0.9 Luteal phase 1.8 - 23.9 Ovulation phase 0.1 - 12.0 First trimester 11.0 - 44.3 Second trimester 25.4 - 83.3 Third trimester 58.7 - 214.0 Postmenopausal 0.0 - 0.1 Performed at: [address], [place] [id number] [employer]: Ilya Manjarrez PhD, Phone: [phone] [facility] MLR HEMOGLOBIN A1Con 025 Glucose [Mass/Vol] 105 mg/dL [facility] HbA1c (Bld) [Mass fraction] 5.3 % 4.5 - 6.2 % [facility] Comment on above: ADA RECOMMENDED LIMI T 4.0 - 6.0 ADA THERAPEUTIC TARGET < 7.0 ACTION SUGGESTED > 7.0 [facility] US PELVIC COMPLETE W/ TVon 0 [...] II, MD, PHD at 25-Mar-2025 07:52:19 AM [employer] Normal Not Available Comment on above: Order Comment: US PE LVIS-TRANSVAG IF INDICATED Patient's last menstrual period was 03/21/2025. Cholesterol [Mass/volume] in Serum or PlasmaOrdered By: Param Rao on 09-13-2022 Cholesterol [Mass/Vol] 141 mg/dL 140-200 [facility] Comment on above: Chol less than 200 m g/dl low riskChol 201-239 mg/dl borderline riskChol 240 mg/dl and greater high risk Cholesterol in LDL Calc [Mas s/Vol]Ordered By: Param Rao on 09-13-2022 Cholesterol in LDL [Mass/Vol] 94 mg/dL 0-100 [facility] Comment on above: LDL ATP III CLASSIFI CATIONLDL less than 100 mg/dL OptimalLDL 100-129 mg/dL Near or above optimalLDL 130-159 mg/dL Borderline highLDL 160-189 mg/dL HighLDL greater than 189 mg/dL Very high Cholesterol in VLDL Calc [Ma ss/Vol]Ordered By: Param Rao on 09-13-2022 Cholesterol in VLDL [Mass/Vol] 9 mg/dL [facility] No Panel InformationOrdered By: Param Rao on 09-13-2022 25-Hydroxy Vitamin D Total 11.9 ng/mL 30-100 [facility] Comment on above: VITAMIN D STATUS [...] Cholesterol in HDL [Mass/Vol] 38 mg/dL 35-85 [facility] Comment on above: HDL CHOL ATP-III CLA SSIFICATION Cardiovascular RiskHDL > or equal to 60 mg/dL LOWHDL < 40 mg/dL HIGH Serum or plasma total choles terol/high density lipoprotein (HDL) cholesterol mass ratOrdered By: Param Rao on 09-13-2022 Cholesterol.total/Chol esterol in HDL [Mass ratio] 3.7 {ratio} <5.0 [facility] TSH DL <= 0.005 mIU/L QnOrde red By: Param Rao on 09-13-2022 TSH Qn 0.81 m[IU]/L 0.45-5.33 [facility] Triglyceride [Mass/volume] i n Serum or PlasmaOrdered By: Param Rao on 09-13-2022 Triglyceride [Mass/Vol] 45 mg/dL 35-149 [facility] Comment on above: TRIG ATP III CLASSIF ICATIONTRIG less than 150 mg/dL NormalTRIG 150-199 mg/dL Borderline highTRIG 200-500 mg/dL High TRIG greater than 500 mg/dL Very highStandard traceable to the Center for Disease Conrtrol and Prevention (CDC) test method. ACETAMINOPHENon 09-12-2022 Acetaminophen [Mass/Vol] ug/mL Critically low 10.0-30.0 [facility] Comment on above: Performed By: #### S ALYC, ACET, CMP #### [facility] [address] [place] [address] Dr. Machelle Garcia CBC AUTO DIFFon 09-12-2022 BASO # 0.0 103/ul Normal 0.0-0.1 [facility] Comment on above: Performed By: #### C BC #### [facility] [address] [place] [address] Dr. Machelle Garcia Basophils/100 WBC (Bld) 0.4 % Normal 0.2-2.0 [facility] Comment on above: Performed By: #### C BC #### [facility] [address] [place] [address] Dr. Machelle Garcia EO # 0.1 103/ul Normal 0.0-0.7 [facility] Comment on above: Performed By: #### C BC #### [facility] [address] [place] [address] Dr. Machelle Garcia Eosinophils/100 WBC (Bld) 0.8 % Critically low 0.9-7.0 [facility] Comment on above: Performed By: #### C BC #### [facility] [address] [place] [address] Dr. Machelle Garcia Erythrocyte distribution width (RBC) [Ratio] 12.4 % Normal 11.0-15.0 [facility] Comment on above: Performed By: #### C BC #### [facility] [address] [place] [address] Dr. Machelle Garcia Hematocrit (Bld) [Volume fraction] 40.4 % Normal 36.0-48.0 [facility] Comment on above: Performed By: #### C BC #### [facility] [address] [place] [address] Dr. Machelle Garcia Hemoglobin (Bld) [Mass/Vol] 14.3 g/dL Normal 12.0-16.0 [facility] Comment on above: Performed By: #### C BC #### [facility] [address] [place] [address] Dr. Machelle Garcia IG # 0.02 10e3/ul Normal 0.00-0.03 [facility] Comment on above: Performed By: #### C BC #### [facility] [address] [place] [address] Dr. Machelle Garcia IG % 0.3 % Normal 0.0-0.5 [facility] Comment on above: Performed By: #### C BC #### [facility] [address] [place] [address] Dr. Machelle Garcia LYMPH # 1.0 103/ul Critically low 1.2-3.8 [facility] Comment on above: Performed By: #### C BC #### [facility] [address] [place] [address] Dr. Machelle Garcia Lymphocytes/100 WBC (Bld) 14.1 % Critically low 20.5-60.0 [facility] Comment on above: Performed By: #### C BC #### [facility] [address] [place] [address] Dr. Machelle Garcia MANUAL DIFF REQ NO Normal [facility] Comment on above: Performed By: #### C BC #### [facility] [address] [place] [address] Dr. Machelle Garcia MCH (RBC) [Entitic mass] 29.7 pg Normal 26.7-34.0 [facility] Comment on above: Performed By: #### C BC #### [facility] [address] [place] [address] Dr. Machelle Garcia MCHC (RBC) [Mass/Vol] 35.4 g/dL Critically high 29.9-35.2 [facility] Comment on above: Performed By: #### C BC #### [facility] [address] [address] [address] Machelle Garcia MCV (RBC) [Entitic vol] 83.8 fL Normal 81.0-99.0 [facility] Comment on above: Performed By: #### C BC #### [facility] [address] [address] [address] Machelle Garcia MONO # 0.9 103/ul Critically high 0.3-0.8 [facility] Comment on above: Performed By: #### C BC #### [facility] [address] [address] [address] Machelle Garcia Monocytes/100 WBC (Bld) 12.6 % Critically high 1.7-12.0 [facility] Comment on above: Performed By: #### C BC #### [facility] [address] [place] [address] Dr. Machelle Garcia NEUT # 5.2 103/ul Normal 1.4-6.5 [facility] Comment on above: Performed By: #### C BC #### [facility] [address] [place] [address] Dr. Machelle Garcia Neutrophils/100 WBC (Bld) 71.8 % Normal 43.0-75.0 [facility] Comment on above: Performed By: #### C BC #### [facility] [address] [place] [address] Dr. Machelle Garcia Platelet mean volume (Bld) [Entitic vol] 9.9 fL Normal 9.5-13.5 [facility] Comment on above: Performed By: #### C BC #### [facility] [address] [place] [address] Dr. Machelle Garcia PLT 245 103/ul Normal 150-450 [facility] Comment on above: Performed By: #### C BC #### [facility] [address] [place] [address] Dr. Machelle Garcia RBC 4.82 106/ul Normal 4.20-5.40 [facility] Comment on above: Performed By: #### C BC #### [facility] [address] [address] [address] Machelle Garcia WBC 7.2 103/ul Normal 4.0-11.0 [facility] Comment on above: Performed By: #### C BC #### [facility] [address] [address] [address] Machelle Garcia DRUG SCREEN RAPID (URINE)on 09-12-2022 AMP Negative Normal NEGATIVE [facility] Comment on above: Performed By: #### D RUGRPD ####[facility] [address] [address]Dr. Machelle Garcia BAR Negative Normal NEGATIVE [facility] Comment on above: Performed By: #### D RUGRPD ####[facility] [address] [address]Dr. Machelle Garcia BUP Negative Normal NEGATIVE [facility] Comment on above: Performed By: #### D RUGRPD ####[facility] [address] [address]Dr. Machelle Garcia BZO Negative Normal NEGATIVE [facility] Comment on above: Performed By: #### D RUGRPD ####[facility] [address] [address]Dr. Machelle Garcia JOHN Negative Normal NEGATIVE [facility] Comment on above: Performed By: #### D RUGRPD ####[facility] [address] [place] [address]Dr. Machelle Garcia CUT-OFFS SEE BELOW Normal [facility] Comment on above: Result Comment: AMP (Amphetamine): 500ng/mL, BAR (Barbituates): 200 ng/mL, BZO (Benzodiazepines): 150 ng/mL, BUP (Buprenorphine): 10 ng/mL, JOHN (Cocaine): 150 ng/mL, mAMP (Methamphetamine): 500 ng/mL, MTD (Methadone): 200 ng/mL, OPI (Opiates): 100 ng/mL, OXY (Oxycodone): 100 ng/mL, PCP (Phencyclidine): 25 ng/mL, PPX (Propoxyphene): 300 ng/mL, THC (Cannabinoids): 50 ng/mL, TCA (Trycyclic Antidepressants): 300 ng/mL Performed By: #### D RUGRPD ####[facility] [address] [id number]. Machelle Garcia DRUG CUT HEADER DRUG CLASS TEST SYSTEM CUT-OFF CONCENTRATIONS ARE FOLLOWS: Normal [facility] Comment on above: Performed By: #### D RUGRPD ####[facility] [address] [id number]. Machelle Garcia mAMP Negative Normal NEGATIVE [facility] Comment on above: Performed By: #### D RUGRPD ####[facility] [address] [address]Dr. Janielan Jose MTD Negative Normal NEGATIVE [facility] Comment on above: Performed By: #### D RUGRPD ####[facility] [address] [place], [place] [address]Dr. Machelle Garcia OPI Negative Normal NEGATIVE [facility] Comment on above: Performed By: #### D RUGRPD ####[facility] [address] [place], [place] [address]Dr. Yilan Garcia OXY Negative Normal NEGATIVE [facility] Comment on above: Performed By: #### D RUGRPD ####[facility] [address] [place], [place] [address]Dr. Janielan Jose PCP Negative Normal NEGATIVE [facility] Comment on above: Performed By: #### D RUGRPD ####[facility] [address] [place], [place] [address]Dr. Janielan Jose PPX Negative Normal NEGATIVE [facility] Comment on above: Performed By: #### D RUGRPD ####[facility] [address] [address]Dr. Janielan Jose TCA Negative Normal NEGATIVE [facility] Comment on above: Performed By: #### D RUGRPD ####[facility] [address] [place], [place] [address]Dr. Machelle Garcia THC Positive Abnormal NEGATIVE [facility] Comment on above: Performed By: #### D RUGRPD ####[facility] [address] [place], [place] [address]Dr. Machelle Garcia ER URINE PROFILEon 2 Bilirubin Ql (U) Negative Normal NEGATIVE [facility] Comment on above: Performed By: #### P REGU, ERUR #### [facility] [address] [address] [address] Machelle Garcia Clarity (U) CLEAR Normal CLEAR [facility] Comment on above: Performed By: #### P REGU, ERUR #### [facility] [address] [address] [address] Machelle Garcia Color (U) LT. YELLOW Normal YELLOW [facility] Comment on above: Performed By: #### P REGU, ERUR #### [facility] [address] [place] [address] Dr. Machelle TAYLOR A micrscopic examination will be performed if indicated. Normal [facility] Comment on above: Performed By: #### P REGU, ERUR #### [facility] [address] [place] [address] Dr. Machelle Garcia Glucose Ql (U) Negative Normal NEGATIVE [facility] Comment on above: Performed By: #### P REGU, ERUR #### [facility] [address] [place] [address] Dr. Machelle Garcia Hemoglobin Ql (U) Negative Normal NEGATIVE [facility] Comment on above: Performed By: #### P REGU, ERUR #### [facility] [address] [place] [address] Dr. Machelle Garcia Ketones Ql (U) TRACE Abnormal NEGATIVE [facility] Comment on above: Performed By: #### P REGU, ERUR #### [facility] [address] [address] [address] Machelle Garcia LEUKOCYTES Negative Normal NEGATIVE [facility] Comment on above: Performed By: #### P REGU, ERUR #### [facility] [address] [place] [address] Dr. Machelle Garcia Nitrite Ql (U) Negative Normal NEGATIVE [facility] Comment on above: Performed By: #### P REGU, ERUR #### [facility] [address] [address] [address] Machelle Garcia pH (U) 5.5 [pH] Normal 5-9 [facility] Comment on above: Performed By: #### P REGU, ERUR #### [facility] [address] [place] [address] Dr. Machelle Garcia SPEC GRAVITY 1.020 Normal 1.005-<=1.02 5 [facility] Comment on above: Performed By: #### P REGU, ERUR #### [facility] [address] [place] [address] Dr. Machelle Garcia UA PROTEIN Negative Normal NEGATIVE/ TRACE [facility] Comment on above: Performed By: #### P REGU, ERUR #### [facility] [address] [place] [address] Dr. Machelle Garcia UR MICRO IND NOT INDICATED Normal [facility] Comment on above: Performed By: #### P REGU, ERUR #### [facility] [address] [place] [address] Dr. Machelle Garcia Urobilinogen Qn (U) 0.2 {Jeanine'U}/dL Normal 0.2 - 1. 0 [facility] Comment on above: Performed By: #### P REGU, ERUR #### [facility] [address] [place] [address] Dr. Machelle Garcia ETHANOL (BLD ALC)on 09-12-20 22 ALC NOTE NOTE: 80 mg/dl is th e legal limit for a blood alcohol level Normal [facility] Comment on above: Performed By: #### E TH ####[facility] [address] [address]Dr. Machelle Garcia Ethanol [Mass/Vol] mg/dL Normal [facility] Comment on above: Performed By: #### E TH ####[facility] [address] [id number]. Machelle Garcia URon 09-12-2022 , QUAL Negative Normal NEGATIVE [facility] Comment on above: Performed By: #### P REGU, ERUR #### [facility] [address] [address] [address] Machelle Garcia PROF 14(COMP METB)on 022 Albumin [Mass/Vol] 3.9 g/dL Normal 3.4-5.0 [facility] Comment on above: Performed By: #### S ALYC, ACET, CMP #### [facility] [address] [address] [address] Machelle Garcia Albumin/Globulin [Mass ratio] 1.1 {ratio} Normal [facility] Comment on above: Performed By: #### S ALYC, ACET, CMP #### [facility] [address] [address] [address] Machelle Garcia ALP [Catalytic activity/Vol] 89 U/L Normal 46-116 [facility] Comment on above: Performed By: #### S ALYC, ACET, CMP #### [facility] [address] [address] [address] Machelle Garcia ALT [Catalytic activity/Vol] 19 U/L Normal 14-59 [facility] Comment on above: Performed By: #### S ALYC, ACET, CMP #### [facility] [address] [address] [address] Machelle Garcia Anion gap [Moles/Vol] 12.1 mmol/L Normal [facility] Comment on above: Performed By: #### S ALYC, ACET, CMP #### [facility] [address] [address] [address] Machelle Garcia AST [Catalytic activity/Vol] 16 U/L Normal 15-37 [facility] Comment on above: Performed By: #### S ALYC, ACET, CMP #### [facility] [address] [address] [address] Machelle Garcia Bilirubin [Mass/Vol] 0.4 mg/dL Normal 0.2-1.0 [facility] Comment on above: Performed By: #### S ALYC, ACET, CMP #### [facility] [address] [address] [address] Machelle Garcia Calcium [Mass/Vol] 9.0 mg/dL Normal 8.5-10.1 [facility] Comment on above: Performed By: #### S ALYC, ACET, CMP #### [facility] [address] [address] [address] Machelle Garcia Chloride [Moles/Vol] 104 mmol/L Normal 98-107 [facility] Comment on above: Performed By: #### S ALYC, ACET, CMP #### [facility] [address] [address] [address] Machelle Garcia CO2 [Moles/Vol] 25.5 mmol/L Normal 21.0-32.0 [facility] Comment on above: Performed By: #### S ALYC, ACET, CMP #### [facility] [address] [place] [address] Dr. Machelle Garcia Creatinine [Mass/Vol] 0.86 mg/dL Normal 0.55-1.02 [facility] Comment on above: Performed By: #### S ALYC, ACET, CMP #### [facility] [address] [address] [address] Machelle Garcia EGFR-AF SAO TOMEAN >60 Normal >=60 The [facility] Comment on above: Performed By: #### S ALYC, ACET, CMP #### [facility] [address] [place] [address] Dr. Machelle Garcia EGFR-NON AF SAO TOMEAN >60 Normal >=60 The [facility] Comment on above: Performed By: #### S ALYC, ACET, CMP #### [facility] [address] [address] [address] Machelle Garcia Globulin (S) [Mass/Vol] 3.4 g/dL Normal The [facility] Comment on above: Performed By: #### S ALYC, ACET, CMP #### [facility] [address] [address] [address] Machelle Garcia Glucose [Mass/Vol] 102 mg/dL Normal 74-106 The [facility] Comment on above: Performed By: #### S ALYC, ACET, CMP #### [facility] [address] [address] [address] Machelle Garcia Potassium [Moles/Vol] 3.6 mmol/L Normal 3.5-5.1 [facility] Comment on above: Performed By: #### S FAITH PIERSON, CMP #### [facility] [address] [address] [address] Machelle Garcia Protein [Mass/Vol] 7.3 g/dL Normal 6.4-8.2 The [facility] Comment on above: Performed By: #### S KENNA ACET, CMP #### [facility] [address] [address] [address] Machelle Garcia Sodium [Moles/Vol] 138 mmol/L Normal 136-145 The [facility] Comment on above: Performed By: #### S FAITH PIERSON, CMP #### [facility] [address] [place] [address] Dr. Machelle Garcia Urea nitrogen [Mass/Vol] 10.0 mg/dL Normal 7.0-18.0 [facility] Comment on above: Performed By: #### S KENNA ACET, CMP #### [facility] [address] [place] [address] Dr. Machelle Garcia Urea nitrogen/Creatinine [Mass ratio] 11.6 mg/mg Normal The [facility] Comment on above: Performed By: #### S FAITH PIERSON, CMP #### [facility] [address] [place] [address] Dr. Machelle Garcia SALICYLATEon 09-12-2022 SALICYLATE <2.8 Normal <=19.9 [facility] Comment on above: Performed By: #### S KENNA ACET, CMP #### [facility] [address] [place] [address] Dr. Machelle Garcia XR CHEST 1 Von [...] ROSEANNE GRADY Date: 2021-10-03 20:52 Normal The [facility] CBC AUTO DIFFon 09-30-2021 BASO # 0.0 103/ul Normal 0.0-0.1 [facility] Comment on above: Performed By: #### C BC #### [facility] [address] [place] [address] Dr. Machelle Garcia Basophils/100 WBC (Bld) 0.4 % Normal 0.2-2.0 The [facility] Comment on above: Performed By: #### C BC #### [facility] [address] [address] [address] Machelle Garcia EO # 0.1 103/ul Normal 0.0-0.7 [facility] Comment on above: Performed By: #### C BC #### [facility] [address] [place] [address] Dr. Machelle Garcia Eosinophils/100 WBC (Bld) 1.3 % Normal 0.9-7.0 [facility] Comment on above: Performed By: #### C BC #### [facility] [address] [place] [address] Dr. Machelle Garcia Erythrocyte distribution width (RBC) [Ratio] 12.8 % Normal 11.0-15.0 [facility] Comment on above: Performed By: #### C BC #### [facility] [address] [place] [address] Dr. Machelle Garcia Hematocrit (Bld) [Volume fraction] 40.7 % Normal 36.0-48.0 [facility] Comment on above: Performed By: #### C BC #### [facility] [address] [place] [address] Dr. Machelle Garcia Hemoglobin (Bld) [Mass/Vol] 13.7 g/dL Normal 12.0-16.0 [facility] Comment on above: Performed By: #### C BC #### [facility] [address] [place] [address] Dr. Machelle Garcia IG # 0.03 10e3/ul Normal 0.00-0.03 [facility] Comment on above: Performed By: #### C BC #### [facility] [address] [place] [address] Dr. Machelle Garcia IG % 0.4 % Normal 0.0-0.5 [facility] Comment on above: Performed By: #### C BC #### [facility] [address] [address] [address] Machelle Garcia LYMPH # 0.6 103/ul Critically low 1.2-3.8 [facility] Comment on above: Performed By: #### C BC #### [facility] [address] [place] [address] Dr. Machelle Garcia Lymphocytes/100 WBC (Bld) 8.8 % Critically low 20.5-60.0 [facility] Comment on above: Performed By: #### C BC #### [facility] [address] [place] [address] Dr. Machelle Garcia MANUAL DIFF REQ NO Normal The [facility] Comment on above: Performed By: #### C BC #### [facility] [address] [place] [address] Dr. Machelle Garcia MCH (RBC) [Entitic mass] 29.0 pg Normal 26.7-34.0 [facility] Comment on above: Performed By: #### C BC #### [facility] [address] [place] [address] Dr. Machelle Garcia MCHC (RBC) [Mass/Vol] 33.7 g/dL Normal 29.9-35.2 [facility] Comment on above: Performed By: #### C BC #### [facility] [address] [place] [address] Dr. Machelle Garcia MCV (RBC) [Entitic vol] 86.2 fL Normal 81.0-99.0 [facility] Comment on above: Performed By: #### C BC #### [facility] [address] [place] [address] Dr. Machelle Garcia MONO # 1.0 103/ul Critically high 0.3-0.8 The [facility] Comment on above: Performed By: #### C BC #### [facility] [address] [place] [address] Dr. Machelle Garcia Monocytes/100 WBC (Bld) 14.4 % Critically high 1.7-12.0 The [facility] Comment on above: Performed By: #### C BC #### [facility] [address] [place] [address] Dr. Machelle Garcia NEUT # 5.1 103/ul Normal 1.4-6.5 [facility] Comment on above: Performed By: #### C BC #### [facility] [address] [place] [address] Dr. Machelle Garcia Neutrophils/100 WBC (Bld) 74.7 % Normal 43.0-75.0 The [facility] Comment on above: Performed By: #### C BC #### [facility] [address] [place] [address] Dr. Machelle Garcia Platelet mean volume (Bld) [Entitic vol] 9.7 fL Normal 9.5-13.5 [facility] Comment on above: Performed By: #### C BC #### [facility] [address] [place] [address] Dr. Machelle Garcia PLT 211 103/ul Normal 150-450 [facility] Comment on above: Performed By: #### C BC #### [facility] [address] [place] [address] Dr. Machelle Garcia RBC 4.72 106/ul Normal 4.20-5.40 [facility] Comment on above: Performed By: #### C BC #### [facility] [address] [place] [address] Dr. Machelle Garcia WBC 6.8 103/ul Normal 4.0-11.0 The [facility] Comment on above: Performed By: #### C BC #### [facility] [address] [place] [address] Dr. Machelle Garcia Covid-19 PCR ([facility])on 09-02 SARS-CoV-2 (COVID-19) RNA BERNARDINO+probe Ql (Unsp spec) Detected Critically abnormal NOT DETECTED The [facility] Comment on above: Result Comment: This test is not yet approved or cleared by the [place] FDA. When there are no FDA-approved or cleared tests available, and other criteria are met, FDA can make tests available under an emergency access mechanism called an Emergency Use Authorization (EUA). The EUA for this test is supported by the Grab Setter of Health and Human Service's declaration that [...] used). Performed By: #### C VDTBH #### [facility] [address] [place] [address] Dr. Machelle Garcia D-DIMERon 09-30-2021 D-DIMER 0.37 mg/L FEU Normal 0.19-0.50 [facility] Comment on above: Performed By: #### D DIM #### [facility] [address] [place] [address] Dr. Machelle Garcia D-DIMER COMMENTS SEE BELOW Normal [facility] Comment on above: Result Comment: Incr [...] hospitalization. Performed By: #### D DIM #### [facility] [address] [address] [address] Machelle Garcia PROF 14(COMP METB)on 021 Albumin [Mass/Vol] 3.5 g/dL Normal 3.5-5.0 [facility] Comment on above: Performed By: #### C MP ####[facility] [address] [id number]. Machelle Garcia Albumin/Globulin [Mass ratio] 0.9 {ratio} Normal [facility] Comment on above: Performed By: #### C MP ####[facility] [address] [address]Dr. Machelle Garcia ALP [Catalytic activity/Vol] 81 U/L Normal 38-126 [facility] Comment on above: Performed By: #### C MP ####[facility] [address] [id number]. Machelle Jose ALT [Catalytic activity/Vol] 44 U/L Normal 9-52 [facility] Comment on above: Performed By: #### C MP ####[facility] [address] [address]Dr. Janiekelsey Jose Anion gap [Moles/Vol] 12.2 mmol/L Normal [facility] Comment on above: Performed By: #### C MP ####[facility] [address] [place], [place] [address]Dr. Machelle Jose AST [Catalytic activity/Vol] 17 U/L Normal 14-36 [facility] Comment on above: Performed By: #### C MP ####[facility] [address] [place], [place] [address]Dr. Janiekelsey Jose Bilirubin [Mass/Vol] 0.3 mg/dL Normal 0.2-1.3 [facility] Comment on above: Performed By: #### C MP ####[facility] [address] [place], [place] [address]Dr. Machelle Garcia Calcium [Mass/Vol] 8.7 mg/dL Normal 8.4-10.2 [facility] Comment on above: Performed By: #### C MP ####[facility] [address] [address]Dr. Machelle Garcia Chloride [Moles/Vol] 103 mmol/L Normal 98-107 [facility] Comment on above: Performed By: #### C MP ####[facility] [address] [address]Dr. Machelle Garcia CO2 [Moles/Vol] 25.3 mmol/L Normal 22.0-30.0 [facility] Comment on above: Performed By: #### C MP ####[facility] [address] [address]Dr. Machelle Garcai Creatinine [Mass/Vol] 0.87 mg/dL Normal 0.52-1.04 The [facility] Comment on above: Performed By: #### C MP ####[facility] [address] [address]Dr. Machelle Garcia EGFR-AF SAO TOMEAN >60 Normal >=60 [facility] Comment on above: Performed By: #### C MP ####[facility] [address] [address]Dr. Machelle Garcia EGFR-NON AF SAO TOMEAN >60 Normal >=60 The [facility] Comment on above: Performed By: #### C MP ####[facility] [address] [place], [place] [address]Dr. Machelle Garcia Globulin (S) [Mass/Vol] 3.8 g/dL Normal [facility] Comment on above: Performed By: #### C MP ####[facility] [address] [place], [place] [address]Dr. Machelle Garcia Glucose [Mass/Vol] 99 mg/dL Normal 74-106 The [facility] Comment on above: Performed By: #### C MP ####[facility] [address] [place], [place] [address]Dr. Machelle Garcia Potassium [Moles/Vol] 3.5 mmol/L Normal 3.4-5.0 The [facility] Comment on above: Performed By: #### C MP ####[facility] [address] [place], [place] [address]Dr. Machelle Garcia Protein [Mass/Vol] 7.3 g/dL Normal 6.1-8.2 [facility] Comment on above: Performed By: #### C MP ####[facility] [address] [place], [place] [address]Dr. Machelle Garcia Sodium [Moles/Vol] 137 mmol/L Normal 137-145 [facility] Comment on above: Performed By: #### C MP ####[facility] [address] [place], [place] [address]Ma. Machelle Garcia Urea nitrogen [Mass/Vol] 11.0 mg/dL Normal 6.4-19.3 [facility] Comment on above: Performed By: #### C MP ####[facility] [address] [place], [place] [address]Cf. Machelle Garcia Urea nitrogen/Creatinine [Mass ratio] 12.6 mg/mg Normal The [facility] Comment on above: Performed By: #### C MP ####[facility] [address] [place], [place] [address]Em. Machelle Garcia Cytology Cervical or vaginal smear or scraping studyOrdered By: Beata Greenberg on 12-09-2020 [facility] Vital Signs Date Time Vital Sign Value Performing Clinician Facility 06-15-2025 10:55-0400 Body mass index (BMI) [Ratio] 53 kg/m2 Cuong Opeepl DO Work Phone: [facility] 06-15-2025 10:55-0400 Body weight 119.02 kg Cuong Chary DO Work Phone: [facility] 06-15-2025 10:55-0400 Diastolic blood pressure 70 mm[Hg] Cuong Chary DO Work Phone: [facility] 06-15-2025 10:55-0400 Systolic blood pressure 118 mm[Hg] Cuong Chary DO Work Phone: [facility] 05-15-2025 10:37-0400 Body mass index (BMI) [Ratio] 53.52 kg/m2 Chary Ob [facility] 05-15-2025 10:37-0400 Body weight 120.2 kg Chary Ob [facility] 05-15-2025 10:37-0400 Diastolic blood pressure 74 mm[Hg] Chary Ob [facility] 05-15-2025 10:37-0400 Systolic blood pressure 124 mm[Hg] Chary Ob [facility] 04-19-2025 09:36-0400 Body mass index (BMI) [Ratio] 51.71 kg/m2 Monty Lemons DO Work Phone: [facility] 04-19-2025 09:36-0400 Body temperature 98.71 [degF] Monty Lemons DO Work Phone: [facility] 04-19-2025 09:36-0400 Body weight 116.12 kg Monty Lemons DO Work Phone: [facility] 04-19-2025 09:36-0400 Diastolic blood pressure 72 mm[Hg] Monty Lemons DO Work Phone: [facility] 04-19-2025 09:36-0400 Heart rate 111 /min Monty Lemons DO Work Phone: [facility] 04-19-2025 09:36-0400 SaO2% (BldA) [Mass fraction] 99 % Monty Lemons DO Work Phone: [facility] 04-19-2025 09:36-0400 Systolic blood pressure 122 mm[Hg] Monty Lemons DO Work Phone: [facility] 03-23-2025 09:02-0400 Body height 149.9 cm Cuong Chary DO Work Phone: [facility] 03-23-2025 09:02-0400 Body mass index (BMI) [Ratio] 51.71 kg/m2 Cuong Chary DO Work Phone: [facility] 03-23-2025 09:02-0400 Body weight 116.12 kg Cuong Chary DO Work Phone: [facility] 03-23-2025 09:02-0400 Diastolic blood pressure 70 mm[Hg] Cuong Chary DO Work Phone: [facility] 03-23-2025 09:02-0400 Systolic blood pressure 120 mm[Hg] Cuong Chary DO Work Phone: [facility] 09-09-2024 12:49-0500 Body mass index (BMI) [Ratio] 63.11 kg/m2 Marciovish Posada TRIALS MANAGER Work Phone: [facility] 09-09-2024 12:49-0500 Body temperature 98.1 [degF] Marcio Posada TRIALS MANAGER Work Phone: [facility] 09-09-2024 12:49-0500 Body weight 105.9 kg Marcio Posada TRIALS MANAGER Work Phone: [facility] 09-09-2024 12:49-0500 Diastolic blood pressure 80 mm[Hg] Marcio Posada TRIALS MANAGER Work Phone: [facility] 09-09-2024 12:49-0500 Heart rate 103 /min Marcio Posada TRIALS MANAGER Work Phone: [facility] 09-09-2024 12:49-0500 SaO2% (BldA) [Mass fraction] 98 % Marcio Posada TRIALS MANAGER Work Phone: [facility] 09-09-2024 12:49-0500 Systolic blood pressure 100 mm[Hg] Marcio Posada TRIALS MANAGER Work Phone: [facility] 09-15-2022 07:26-0500 Body temperature 98.4 [degF] MD Helio Florian Work Phone: [facility] 09-15-2022 07:26-0500 Diastolic blood pressure 70 mm[Hg] MD Helio Florian Work Phone: [facility] 09-15-2022 07:26-0500 Heart rate 92 /min MD Helio Florian Work Phone: [facility] 09-15-2022 07:26-0500 Respiratory rate 16 /min MD Helio Florian Work Phone: [facility] 09-15-2022 07:26-0500 SaO2% (BldA) [Mass fraction] 97 % MD Helio Florian Work Phone: [facility] 09-15-2022 07:26-0500 Systolic blood pressure 117 mm[Hg] MD Helio Florian Work Phone: [facility] 09-13-2022 00:57-0500 Body height 149.86 cm MD Helio Florian Work Phone: [facility] 09-13-2022 00:57-0500 Body weight 90.71 kg MD Helio Florian Work Phone: [facility] Encounters Encounter Date Encounter Type Care Provider Facility Start: 06-15-2025 End: 06-15-2025 Bamboo flowsheet Cuong Chary DO Work Phone: [facility] Start: 06-15-2025 End: 06-15-2025 Bamboo flowsheet Cuong Chary DO Work Phone: [facility] Start: 06-15-2025 End: 06-15-2025 Office outpatient visit 15 minutes Cuong Chary DO Work Phone: [facility] Comment on above: Second trimester pre gnancy ([facility]); First trimester ([facility]); 11 weeks gestation of ([facility]) Start: 06-15-2025 End: 06-15-2025 ambulatory CUONG CHARY Not Available Start: 05-29-2025 End: 05-29-2025 Clinisync Result Encounter Columba Temple NP Work Phone: [facility]solicited Start: 05-29-2025 End: 05-29-2025 Clinisync Result Encounter Columba Temple TRIALS MANAGER Work Phone: [facility] Unsolicited Start: 05-15-2025 End: 05-15-2025 ambulatory Chary Nurse [facility] Comment on above: GA: 7w0d Start: 04-23-2025 End: 04-23-2025 Clinisync Result Encounter Cuong Chary DO Work Phone: [facility] Unsolicited Start: 04-23-2025 End: 04-23-2025 Clinisync Result Encounter Cuong Chary DO Work Phone: [facility]solic[facility] Start: 04-21-2025 End: 04-21-2025 Clinisync Result Encounter Cuong Chary DO Work Phone: [facility]solic[facility] Start: 04-21-2025 End: 04-21-2025 Clinisync Result Encounter Cuong Chary DO Work Phone: [facility]solic[facility] Start: 04-19-2025 End: 04-19-2025 ambulatory CUONG CHARY Not Available Start: 04-19-2025 End: 04-19-2025 Office outpatient visit 15 minutes Monty Zaynab Lemons DO Work Phone: [facility] Comment on above: Possible ( Primary Dx); Amenorrhea Start: 04-14-2025 ambulatory Dante Esparza acility:[facility] Start: 04-10-2025 End: 04-11-2025 Clinisync Result Encounter Cuong Chary DO Work Phone: [facility]solicited Start: 04-10-2025 End: 04-11-2025 Clinisync Result Encounter Cuong Chary DO Work Phone: [facility] Unsolicited Start: 03-24-2025 End: 03-24-2025 Clinisync Result Encounter Cuong Chary DO Work Phone: [facility]solic[facility] Start: 03-24-2025 End: 03-24-2025 Clinisync Result Encounter Cuong Chary DO Work Phone: [facility]solic[facility] Start: 03-24-2025 End: 03-24-2025 ambulatory CUONG CHARY Not Available Start: 03-23-2025 End: 03-23-2025 Bamboo flowsheet Cuong Chary DO Work Phone: [facility] Start: 03-23-2025 End: 03-23-2025 Bamboo flowsheet Cuong Chary DO Work Phone: [facility] Start: 03-23-2025 End: 03-23-2025 ambulatory CUONG CHARY Not Available Start: 03-23-2025 End: 03-23-2025 Office outpatient visit 15 minutes Cuong Chary DO Work Phone: [facility] Comment on above: Female infertility; PCOS (polycystic ovarian syndrome) Start: 09-09-2024 End: 09-09-2024 Office outpatient visit 25 minutes Marcio Posada TRIALS MANAGER Work Phone: [facility] Comment on above: Acute cough (Primary Dx); Bronchitis Start: 09-09-2024 End: 09-09-2024 ambulatory MARCIO POSADA Not Available Start: 09-13-2022 End: 09-15-2022 Evaluation and management of inpatient MD Helio Florian Work Phone: [facility] Start: 09-12-2022 End: 09-13-2022 ambulatory TAL IQBAL Facility:[facility] Start: 10-19-2021 End: 10-19-[address] HELIO FLORIAN Facility:[facility] Start: 10-03-2021 End: 10-03-[address] HELIO FLORIAN Facility:[facility] Start: 09-30-2021 End: 09-30-[address] SUMI DURON Facility:[facility] Procedures Date Procedure Procedure Detail Performing Clinician Start: 06-15-2025 Urnls dip stick/tabl et rgnt non-auto w/o micrscp Cuong Chary DO Work Phone: Start: 05-29-2025 BOX TEST Columba tong TRIALS MANAGER Work Phone: Start: 05-15-2025 Urnls dip stick/tabl et rgnt non-auto w/o micrscp Cuong Chary DO Work Phone: Start: 04-23-2025 [facility] PREG QUANT HCG Core y Chary DO Work Phone: Start: 04-21-2025 [facility] PREG QUANT HCG Core y Chary DO Work Phone: Start: 04-19-2025 Urine test visual color cmprsn meths Monty Lemons DO Work Phone: Start: 04-10-2025 ALL PROGESTERONE Cuong Chary DO Work Phone: Start: 03-24-2025 MLR HEMOGLOBIN A1C Core y Chary DO Work Phone: Start: 12-09-2020 Cytp cerv/vag auto t hin layer prep mnl screen Albert Barnard Plan of Treatment Date Care Activity Detail Author Start: 07-27-2025 End: 07-27-2025 Patient encounter procedure [facility] Start: 07-13-2025 End: 07-13-2025 Patient encounter procedure 07/13/2025 2:30 PM EDT Routine LEA Jaramillo OBPILI [address] [place] [address] Betsy Tate PA [address] [place] [address] [facility] Start: 06-15-2025 End: 06-15-2025 Patient encounter procedure JAMESS [facility] Comment on above: Arrived Start: 06-01-2025 [facility] Start: 05-15-2025 End: 05-15-2026 ABO/Rh ABO/Rh Lab Routine Missed menses , unspecified gestational age ([facility]) Expected: 05/15/2025 (Approximate), Expires: 05/15/2026 [facility] Comment on above: Expected: 05/15/2025 (Approximate), Expires: 05/15/2026 Start: 05-15-2025 End: 05-15-2026 Blood type and Indirect antibody screen panel - Blood Type and screen Lab Routine Missed menses , unspecified [facility] age [facility] Expected: 05/15/2025 (Approximate), Expires: 05/15/2026 [facility] Comment on above: Expected: 05/15/2025 (Approximate), Expires: 05/15/2026 Start: 05-15-2025 End: 05-15-2026 Drugs of abuse panel - Urine by Screen method Rapid drug screen, urine Lab Routine , unspecified gestational age ([facility]) Encounter for supervision of normal first in first trimester ([facility]) Expected: 05/15/2025 (Approximate), Expires: 05/15/2026 [facility] Comment on above: Expected: 05/15/2025 (Approximate), Expires: 05/15/2026 Start: 05-15-2025 End: 05-15-2025 ambulatory 05/15/2025 10:00 AM EDT Initial [facility] [address] [place] [place] [address] [facility] Start: 05-15-2025 End: 05-15-2025 Professional / ancillary services management 05/15/2025 9:30 AM EDT Ancillary Procedure [facility] [address] [place] [address] [facility] Start: 05-06-2025 End: 08-06-2025 US Pelvis transvaginal US OB transvaginal Imaging Routine Missed menses Positive urine test ([facility]) Expected: 05/06/2025, Expires: 08/06/2025 [facility] Work Phone: Comment on above: Expected: 05/06/2025 , Expires: 08/06/2025 Start: 03-24-2025 End: 03-24-2025 Professional / ancillary services management 03/24/2025 10:00 AM EDT Ancillary Procedure [facility] [address] [place] [place] [address] [facility] Start: 03-23-2025 End: 03-23-2026 [...] ovarian syndrome) Expected: 03/23/2025 (Approximate), Expires: 03/23/2026 [facility] Comment on above: Expected: 03/23/2025 (Approximate), Expires: 03/23/2026 Start: 03-23-2025 End: 03-23-2026 hCG, quantitative, hCG, quantitative, Lab Routine Female infertility PCOS (polycystic ovarian syndrome) Expected: 03/23/2025 (Approximate), Expires: 03/23/2026 [facility] Work Phone: Comment on above: [...] ovarian syndrome) Expected: 03/23/2025 (Approximate), Expires: 03/23/2026 [facility] Comment on above: Expected: 03/23/2025 (Approximate), Expires: 03/23/2026 Start: 03-23-2025 End: 03-23-2026 Thyroxine (T4) free [Mass/volume] in Serum or Plasma T4, free Lab Routine Female infertility PCOS (polycystic ovarian syndrome) Expected: 03/23/2025 (Approximate), Expires: 03/23/2026 [facility] Comment on above: Expected: 03/23/2025 (Approximate), Expires: 03/23/2026 Start: 03-23-2025 End: 03-23-2026 US Pelvis US Pelvis w/ TV Imaging Routine Female infertility PCOS (polycystic ovarian syndrome) Expected: 03/23/2025, Expires: 03/23/2026 [facility] Comment on above: Expected: 03/23/2025 , Expires: 03/23/2026 Start: 06-01-2024 Influenza vaccination Influenza Vacc ine (#1) [facility] Start: 09-15-2022 [facility] Start: 09-13-2022 Hospital admission [facility] Bacteria identified in Urine by Culture Urine culture Microbiology Routine Missed menses Ordered: 05/15/2025 [facility] Comment on above: Ordered: 05/15/2025 CBC W Auto Different ial panel - Blood CBC and differential Lab Routine Missed menses , unspecified gestational age ([facility]) Ordered: 05/15/2025 [facility] Comment on above: Ordered: 05/15/2025 hCG, quantitative, hCG, quantitative, Lab Routine Possible Amenorrhea Ordered: 04/19/2025 [facility] Comment on above: Ordered: 04/19/2025 hCG, serum, qualitative hCG, ser um, qualitative Lab Routine Possible Amenorrhea Ordered: 04/19/2025 [facility] Work Phone: Comment on above: Ordered: 04/19/2025 Hemoglobin A1c/Hemoglobin.total in Blood Hemoglobin A1c Lab Routine Missed menses , unspecified gestational age ([facility]) Ordered: 05/15/2025 [facility] Comment on above: Ordered: 05/15/2025 Hepatitis B virus surface Ag [Presence] in Serum or Plasma by Immunoassay Hepatitis B surface antigen Lab Routine Missed menses , unspecified gestational age ([facility]) Ordered: 05/15/2025 [facility] Comment on above: Ordered: 05/15/2025 Hepatitis C virus Ab [Presence] in Serum or Plasma by Immunoassay Hepatitis C antibody Lab Routine Missed menses , unspecified gestational age ([facility]) Ordered: 05/15/2025 [facility] Comment on above: Ordered: 05/15/2025 HIV-1/HIV-2 antigen/antibody combination immunoassay HIV-1 and HIV-2 antibodies Lab Routine Missed menses , unspecified gestational age ([facility]) Ordered: 05/15/2025 [facility] Comment on above: Ordered: 05/15/2025 Patient Education Bipolar Disord er (DC) [facility] [place] Instructions [facility] Work Phone: Patient referral [facility] Work Phone: Progesterone Progesterone Lab Routine Female infertility PCOS (polycystic ovarian syndrome) Ordered: 03/23/2025 [facility] Comment on above: Ordered: 03/23/2025 Reagin Ab [Presence] in Serum by RPR RPR Lab Routine Missed menses , unspecified gestational age ([facility]) Ordered: 05/15/2025 [facility] Comment on above: Ordered: 05/15/2025 Rubella antibody, IgG Rubella an tibody, IgG Lab Routine Missed menses , unspecified gestational age ([facility]) Ordered: 05/15/2025 [facility] Comment on above: Ordered: 05/15/2025 US Pelvis transvaginal US OB tra nsvaginal Imaging Routine Missed menses Positive urine test ([facility]) 05/15/2025 10:06 AM EDT [facility] Immunizations Immunization Date Immunization Notes Care Provider Alexus stratton 07-27-2014 influenza virus vacc ine, unspecified formulation Marcio Posada NP Work Phone: [facility] Payers Date Payer Category Payer Medicaid (Managed Care) [facility] MEDICAID [id number] 2023 Self-pay [id number] 2017 Medicaid MEDICAID [facility] [id number] 2002 Unknown [id number] 2.16.840.1.092383.3.579.2. 593 2002 Unknown [id number] 2.16.840.1.774738.3.579.2. 593 2002 Unknown [id number] 2.16.840.1.663504.3.579.2. 593 2002 Unknown [id number] 2.16.840.1.623784.3.579.2. 593 2002 Unknown [id number] 2.16.840.1.275900.3.579.2. 1259 2002 Unknown [id number] 2.16.840.1.194381.3.579.2. 1259 2002 Unknown [id number] 2.16.840.1.527688.3.579.2. 1259 2002 Unknown [id number] 2.16.840.1.488679.3.579.2. 1259 2002 Unknown [id number] 2.16.840.1.127340.3.579.2. 1259 2002 Unknown [id number] 2.16.840.1.072244.3.579.2. 1259 2002 Unknown [id number] 2.16.840.1.236250.3.579.2. 1259 1959 Medicaid [id number] Unknown [id number] 2.16.840.1.627427.3.579.2. 531 Social History Date Type Detail Facility Start: 09-13-2022 [facility] Start: 2000 Sex Assigned At Female F [facility] Start: 04-05-2023 Tobacco smoking stat [facility] Never smoked tobacco [facility] Start: [...] Facility 09-15-2022 Functional status Patient at Baseline [facility] Work Phone: Mental Status Date Assessment Result Facility 09-15-2022 Cognitive function Cognitive Sta tus Patient at Baseline [facility] Work Phone: Clinical Notes 09-13-2022 to 06-15-2025 Faye Lesley, CHANELLE - 06/15/2025 10:40 AM EDTMjimenezheather Dionicio, GEORGINA - 05/15/2025 10:00 AM aNn Cloud NP - 04/19/2025 9:30 AM REFUGIOJeramie Sutton, CHANELLE - 03/23/2025 8:40 AM EDT Note Date & Type Note Facility 06-15-2025 History of Presen t illness Narrative Reason for Appointment: Patient ID: Kay Tristan is a 25 y.o. female who presents for Routine Visit Patient presents today for Return OB appointment. MEDICATIONS Current Outpatient Medications Medication Instructions QUEtiapine (SEROQUEL) 50 mg, Oral, Nightly Zoloft 25 mg, Daily ALLERGIES No Known Allergies PROBLEMS Active Ambulatory Problems Diagnosis Date Noted Bipolar [...] times per week Types: Marijuana Comment: everyday FAMILY HISTORY No family history on file. SURGICAL HISTORY No past surgical history on file. REVIEW OF SYSTEMS Review of Systems: Review [...] nursing note reviewed. Exam conducted with a trust clerk present. Vitals: Estimated body mass index is 53 kg/m as calculated from the following: Height as of 03/23/25: 4' 11 . Weight as of this encounter: 262 lb 6.4 oz. BP: 118/70 Patient's last menstrual period was 03/21/2025. ASSESSMENT & PLAN ICD-10-CM 1. Second trimester ([facility]) Z34.92 POCT urinalysis dipstick manually resulted 2. First trimester ([facility]) Z34.91 POCT urinalysis dipstick manually resulted 3. 11 weeks gestation of ([facility]) Z3A.11 POCT urinalysis dipstick manually resulted Patient presents today for a routine obstetrics appointment. Patient is currently 11w3d with a Estimated Date of Delivery: 01/01/26. Patient voiced increase in mood swings and depression. Patient stated that her medications have been increased by specialist. Reassurance given to patient in regards to medication and being safe in . Patient does not desire to be seen by MFM at this time for medication management. Patient to return to clinic in 4 weeks for routine OB care. Documented by Faye Sutton LPN on behalf of: Cuong Diez DO documented in this encounter [facility] 05-15-2025 History of Presen t illness Narrative [...] urinalysis dipstick manually resulted Positive urine test ([facility]) - US OB transvaginal; Future Amenorrhea 7 weeks gestation of ([facility]) Bipolar affective disorder, remission status unspecified (HCC) Borderline personality disorder (HCC) , unspecified gestational age ([facility]) - Type and screen; Future - ABO/Rh; Future - CBC and differential - Hemoglobin A1c - RPR - Rubella antibody, IgG - Hepatitis B surface antigen - Hepatitis C antibody - HIV-1 and HIV-2 antibodies - Rapid drug screen, urine; Future Encounter for supervision of normal first in first trimester ([facility]) - Rapid drug screen, urine; Future Nurse Note: Pt desires Callaway billion to one. Pt was advised she has to be 9 weeks gestation in order to have Callaway drawn along w/ labs. PVU. Pt is [...] Beata Greenberg MA documented in this encounter [facility] 04-19-2025 History of Presen t illness [...] Additional Comments: Want blood labs sent to [facility] ROS: A complete system ROS was [...] PRN/gynecology if applicable. documented in this encounter [facility] 03-23-2025 History of Presen t illness [...] nursing note reviewed. Exam conducted with a trust clerk present. Vitals: Estimated body mass index is [...] by Faye Sutton LPN on behalf of: Cuong Diez DO documented in this encounter [facility] 09-09-2024 History of Presen t illness Narrative Images from the original note were not included. [address] , [address] [facility], [address] P: [phone] F: [phone] HPI Historian of HPI: patient Alexia Tristan [...] Left Turbinates: Enlarged and swollen. Mouth/Throat: Lips: Tatum. Mouth: Mucous membranes are moist. Pharynx: Oropharynx [...] capsule; Refill: 0 documented in this encounter [facility] 09-15-2022 Discharge summary Note Date/Time September 15, 2022 10:25am [facility] [address] [place] [address] Discharge Summary Signed Patient: Kay Busch MR#: [id number] : 2000 Acct:[id number] Age/Sex: 22 / F Adm Date: 2 Loc: Room: [address] [place] [address]: Param Rao MD Copies to: [...] No activity restrictions. 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 (insert [...] signed by Param Rao MD> 09/15/22 1037 [facility] Work Phone: 1(993) 928-542212-15-2022 Progress note Author Param Rao [facility] September 14, 2022 12:20pm Note Date/Time September 14, 2022 12:20pm [facility] [address] [place] [address] Psychiatry Progress Note Signed Patient: Kay Busch MR#: [id number] : 2000 Acct:[id number] Age/Sex: 22 / F Adm Date: 2 Loc: Room: [address] [place] [address] Type : ADM IN Attending Dr: Param [...] explained Documented By: Param Rao MD 09/14/22 121 Signed By: <Electronically signed by Param Rao MD> 09/14/22 1220 [facility] Work Phone: 1(858) 903-103912-14-2022 History and physical note Author Param Rao [facility] September 13, 2022 12:48pm Note Date/Time September 13, 2022 12:48pm [facility] [address] [place] [address] Psychiatry H&P Signed Patient: Kay Busch MR#: [id number] : 2000 Acct:[id number] Age/Sex: 22 / F Adm Date: 2 Loc: Room: [address] [place] [address] Type: ADM IN Attending Dr: Param Rao [...] signed by Param Rao MD> 09/13/22 1248 [facility] Work Phone: Evaluation note* Diagnosis Onset Date Resolution Status Bipolar disorder acute [facility] Work Phone: Evaluation note* Diagnosis [...] note* Diagnosis Missed menses Positive urine test ([facility]) Amenorrhea Absence of menstruation 7 weeks gestation of ([facility]) Bipolar affective disorder, remission status unspecified (HCC) Borderline personality disorder (HCC) Borderline personality disorder , unspecified gestational age ([facility]) Encounter for supervision of normal first in first trimester ([facility]) [facility] Diagnosis Second trimester ([facility]HCC) state, incidental First trimester ([facility]-HCC) state, incidental 11 weeks gestation of ([facility]) [facility] Additional Instructions Regular diet. No activity restrictions.[facility] Work Phone: Chief Complaint and [...] Helio Florian MD Primary Care Provider Active [employer] Service Representative Relationship Specialty Start Date End Date Helio Florian MD [address] [place] [address] PCP - General Family Medicine 04/05/23 [employer] Service Representative Relationship Specialty Start Date End Date Helio Florian MD [address] [place] [address] PCP - General Family Medicine 04/05/23 [employer] Service Representative Relationship Specialty Start Date End Date Helio Florian MD [address] [place] [address] PCP - General Family Medicine 04/05/23 Termite Control Service Representative Relationship Specialty Start Date End Date Helio Florian MD [address] [place] [address] PCP - [facility] 04/05/23 Termite Control Service Representative Relationship Specialty Start Date End Date Helio Florian MD [address] [place] [address] PCP - [facility] 04/05/23 [employer]ite [employer] Service Representative Relationship Specialty Start Date End Date Helio Florian MD [address] [place] [address] PCP - [facility] 04/05/23 Marcio Posada NP [address] [place] [address] [facility] 12/30/2408/30 [employer] Service Representative Relationship Specialty Start Date End Date Helio Florian MD [address] [place] [phone] PCP - [facility] 04/05/23 Marcio Posada NP [address] [place] [address] PCP - [facility] 12/30/2408/30 [employer] Service Representative Relationship Specialty Start Date End Date Helio Florian MD [address] [place] [address] PCP - [facility] 04/05/23 Marcio Posada NP [address] [place] [address] PCP - [facility] 12/30/2408/30 [employer] Service Representative Relationship Specialty Start Date End Date Helio Florian MD [address] [place] [address] PCP - General Family Medicine 04/05/23 Marcio Posada NP [address] [place] [address] PCP - [facility] 12/30/2408/30 INFORMATION SOURCE (unrecogn ized section and content) DATE CREATED AUTHOR 09/21/2022 [facility] DATE CREATED AUTHOR AUTHOR'S ORGANIZ ATION 04/17/2025 [facility] DATE CREATED AUTHOR AUTHOR'S ORGANIZ ATION 06/16/2025 [facility] EPIC Reason for Visit (unrecogniz ed section and content) Reason Comments Infertility Reason Comments Amenorrhea Reason Comments Routine Visit FOR RECORDS PERTAINING TO PATIENTS WHO ARE [...] BE BASED ON THE PRIMARY CLINICAL RECORDS. [facility] [employer] provides no warranty or guarantee of the accuracy or completeness of information in this document.
[2025-07-03 17:03] LABS: Glucose Urine UA NEGATIVE (NEGATIVE)
[2025-07-03 17:03] LABS: Hematocrit 38.0 % (36.0-48.0); Hemoglobin 13.5 g/dL (12.0-16.0); Immature Granulocytes Abs Auto 0.10 10^3/uL (0.00-0.03); Immature Granulocytes Pct Auto 0.7 % (0.0-0.5); Lymphocytes Absolute Auto 2.4 10^3/uL (1.2-3.8); Mean Corpuscular HGB Conc 35.5 g/dL (29.9-35.2); Mean Corpuscular Hemoglobin 30.2 pg (26.7-34.0); Mean Corpuscular Volume 85.0 fL (81.0-99.0); Platelet Count 286 10^3/uL (150-450); Red Blood Count 4.47 10^6/uL (4.20-5.40); White Blood Count 13.4 10^3/uL (4.0-11.0)
[2025-07-03 17:12] LABS: Cast Seen? NONE SEEN #/LPF (NONE SEEN); Crystals Seen? None Seen #/HPF (None Seen)
[2025-07-03 17:13] LABS: Urine Culture Indicated NO
--- NOTE | 2025-07-03 17:25 | ED.ANXIETY1 ---
HPI - Anxiety General Chief Complaint: Anxiety Stated Complaint: ANXIOUS Time Seen by Provider: 07/03/25 16:16 Source: patient Mode of arrival: walk-in Limitations: no limitations History of Present Illness HPI narrative: Patient is a 25-year-old female with a history of depression and PCOS, currently 14 weeks , presenting to the Emergency Department with complaints of anxiety and crying episodes and feeling overwhelmed. She reports experiencing increased nervousness, restlessness, and racing thoughts over the past several days. She denies any suicidal or homicidal ideation, hallucinations, headache, visual changes, or fever/chills. The patient attributes some of her current symptoms to recent nicotine cessation, stating she quit approximately 6 days ago after regular use. She also reports several ongoing life stressors, though did not elaborate in detail. She describes her mood as overwhelmed but denies any active depressive symptoms severe enough to impair her function or trigger safety concerns. She hasd cancelled a few of her appointments for counseling recently. She has had some mild nausea during this but reports no current abdominal pain, vaginal bleeding, or other obstetric concerns aside from one prior episode of vaginal spotting a few weeks ago. She denies any extremity numbness, tingling, or weakness. She has been compliant with her psychiatric medication. MD complaint: Reports anxiety Related Data Home Medications ?Medication ?Instructions ?Recorded ?Confirmed injection testosterone 0.15 mg subcut .two times a week 05/05/23 05/05/23 bupropion HCl 300 mg 24 hr tablet, mg PO 05/05/23 extended release cariprazine 6 mg capsule (Vraylar) 6 mg PO DAILY 05/05/23 08/31/24 hydroxyzine HCl 25 mg tablet mg 05/05/23 oxcarbazepine 300 mg tablet mg 05/05/23 trazodone 50 mg tablet mg 05/05/23 venlafaxine 75 mg capsule,extended 150 mg PO DAILY 08/31/24 08/31/24 release 24 hr quetiapine 25 mg tablet 25 mg PO HS 05/29/25 05/29/25 sertraline 25 mg tablet 25 mg PO Q24H 05/29/25 05/29/25 Previous Rx's ?Medication ?Instructions ?Recorded erhevcilwmgnvki-hpzdohelclzlroq-FJ 5 ml PO Q6H PRN cold symptoms #118 09/26/23 2 mg-30 mg-10 mg/5 mL oral syrup mL (Bromfed DM) Allergies Allergy/AdvReac Type Severity Reaction Status Date / Time No Known Drug Allergies Allergy Verified 05/29/25 19:04 [facility] Social History Smoking status: Former smoker Little interest or pleasure in doing things: not at all Feeling down, depressed, or hopeless: not at all Exam Narrative Exam Narrative: General: Alert, oriented, appropriate affect, cooperative. No acute distress. HEENT: Normocephalic, atraumatic. No pallor or jaundice. Mucous membranes moist. Neck: Supple, no thyromegaly, no lymphadenopathy. Cardiovascular: Regular rate and rhythm, no murmurs, no gallops or rubs. Respiratory: Lungs clear to auscultation bilaterally, no wheezes or crackles. Good air movement. Abdomen: Soft, non-tender, non-distended. No guarding or rebound. Extremities: No cyanosis, clubbing, or edema. No focal motor or sensory deficits. Neurological: Alert, oriented ?3. No focal deficits. No tremors noted. Gait not assessed but patient ambulatory without assistance. Psychiatric: Patient is conversant and cooperative. Mood anxious. Thought process linear. No evidence of pressured speech, psychosis, suicidal or homicidal ideation. Judgment and insight intact. Constitutional Vital Signs, click to edit/add: Last Vital Signs Temp 98.3 F 07/03/25 16:14 Pulse 84 07/03/25 16:14 Resp 20 07/03/25 16:14 BP 103/71 07/03/25 16:14 Pulse Ox 98 07/03/25 16:14 Course Vital Signs Vital signs: Vital Signs Temperature 98.3 F 07/03/25 16:14 Pulse Rate 84 07/03/25 16:14 Respiratory Rate 20 07/03/25 16:14 Blood Pressure 103/71 07/03/25 16:14 Pulse Oximetry 98 07/03/25 16:14 Temperature 98.3 F 07/03/25 16:14 Pulse Rate 84 07/03/25 16:14 Respiratory Rate 20 07/03/25 16:14 Blood Pressure 103/71 07/03/25 16:14 Pulse Oximetry 98 07/03/25 16:14 MDM - Anxiety MDM Narrative Medical decision making narrative: This is a 25-year-old female (14 weeks gestation, ) with a known psychiatric history (depression), presenting with increased anxiety and overthinking . Symptoms appear to be multifactorial, likely related to nicotine withdrawal, life stressors including , and underlying anxiety/depressive tendencies. She is currently under psychiatric care and has an established support system, including a scheduled correctional case manager visit early next week. She has cancelled several appointments for counseling recently. On exam, she is alert, oriented, and not in acute distress. She is tearful at times however. There are no signs of psychosis, josé miguel, or active suicidal ideation. She denies any somatic complaints concerning for other acute processes (e.g., infection, thyroid dysfunction, preeclampsia), and her vital signs are stable. Laboratory testing including CBC, CMP, TSH, and urinalysis are all within normal limits, ruling out metabolic or infectious causes of her symptoms. There is no evidence of substance use or toxidrome. She has no obstetric red flags at this time. The does not have and complaints of vaginal bleeding, discharge or abdominal or pelvic cramping Given her stable condition, insight into her symptoms, and safe home environment, she is appropriate for discharge with close outpatient follow-up. She was evaluated by [facility] by [facility] who will set her up for case management for Sunday. She feels the patient is safe to go home and she gave her some resources for copign with anxiety and depressive symptoms. Symptoms were reviewed in depth with the patient, and she is agreeable to return if worsening occurs. She was also provided with reassurance regarding nicotine withdrawal symptoms, which may last 1?3 weeks after cessation. Differential Diagnosis: Nicotine withdrawal ? Most likely, given recent cessation (6 days ago), with symptoms including anxiety, restlessness, irritability, and shakiness. -related anxiety ? New with significant life adjustments; common cause of increased stress and mood fluctuations. Generalized anxiety disorder (GEOVANNY) ? History of depression; anxiety symptoms may be exacerbating. Medication side effects ? Less likely, no changes reported in psychiatric regimen. Hyperthyroidism ? Ruled out by normal TSH. -related medical complication ? No signs of preeclampsia, gestational hypertension, or infection at this time. Medical Records Attestation: I reviewed the patient's medical records. Lab Data Attestation: I reviewed the patient's lab results. Labs: Lab Results 10/03/25 10/03/25 Range/Units 16:44 16:54 WBC 13.4 H (4.0-11.0) 10^3/uL RBC 4.47 (4.20-5.40) 10^6/uL Hgb 13.5 (12.0-16.0) g/dL Hct 38.0 (36.0-48.0) % MCV 85.0 (81.0-99.0) fL MCH 30.2 (26.7-34.0) pg MCHC 35.5 H (29.9-35.2) g/dL RDW 12.5 (11.0-15.0) % Plt Count 286 (150-450) 10^3/uL MPV 8.8 L (9.5-13.5) fL Neut % (Auto) 75.1 H (43.0-75.0) % Lymph % (Auto) 17.8 L (20.5-60.0) % [place] % (Auto) 5.4 (1.7-12.0) % Eos % (Auto) 0.7 L (0.9-7.0) % Baso % (Auto) 0.3 (0.2-2.0) % Neut # (Auto) 10.1 H (1.4-6.5) 10^3/uL Lymph # (Auto) 2.4 (1.2-3.8) 10^3/uL [place] # (Auto) 0.7 (0.3-0.8) 10^3/uL Eos # (Auto) 0.1 (0.0-0.7) 10^3/uL Baso # (Auto) 0.0 (0.0-0.1) 10^3/uL Abs Immat Gran (auto) 0.10 H (0.00-0.03) 10^3/uL Imm/Tot Granulo (auto) 0.7 H (0.0-0.5) % Sodium 137 (136-145) mmol/L Potassium 3.5 (3.5-5.1) mmol/L Chloride 102 (98-107) mmol/L Carbon Dioxide 20.9 L (21.0-32.0) mmol/L Anion Gap 17.6 BUN 7.0 (7.0-18.0) mg/dL Creatinine 0.60 (0.55-1.02) mg/dL Est GFR ( Amer) >60 (>=60 mL/min/1.73m^2) Est GFR (Non-Af Amer) >60 (>=60 mL/min/1.73m^2) BUN/Creatinine Ratio 11.7 Glucose 94 (74-106) mg/dL Calcium 9.6 (8.5-10.1) mg/dL Magnesium 1.8 (1.8-2.4) mg/dL Total Bilirubin 0.5 (0.2-1.0) mg/dL AST 16 (15-37) U/L ALT 24 (14-59) U/L Alkaline Phosphatase 75 (46-116) U/L Total Protein 7.9 (6.4-8.2) g/dL Albumin 3.4 (3.4-5.0) g/dL Globulin 4.5 g/dL Albumin/Globulin Ratio 0.8 TSH 2.903 (0.358-3.740) uIU/mL Free T4 1.14 (0.76-1.46) ng/dL Urine Color Lt. yellow (YELLOW) Urine Clarity Clear (CLEAR) Urine pH 8.0 (5.0-9.0) Ur Specific [place] 1.015 (1.005-1.025) Urine Protein Trace (NEG/TRACE) mg/dL Urine Glucose (UA) Negative (NEGATIVE) mg/dL Urine Ketones 40 A (NEGATIVE) mg/dL Urine Occult Blood Negative (NEGATIVE) Urine Nitrite Negative (NEGATIVE) Urine Bilirubin Negative (NEGATIVE) Urine Urobilinogen 0.2 (0.2-1.0) EU/dL Ur Leukocyte Esterase Trace A (NEGATIVE) Urine RBC 0-2 (0-2) #/HPF Urine WBC 0-2 A (NONE SEEN) #/HPF Ur Squamous Epith Cells Few A (NONE/RARE) #/LPF Urine Crystals None seen (None Seen) #/HPF Urine Bacteria Trace A (NONE SEEN) #/HPF Urine Casts None seen (NONE SEEN) #/LPF Urine Mucus None seen (NONE SEEN) Ur Culture Indicated? No Discharge Plan Discharge Chief Complaint: Anxiety Clinical Impression: Anxiety and depression Patient Disposition: Home, Self-Care Time of Disposition Decision: 18:28 Condition: Good Prescriptions / Home Meds: No Action trazodone 50 mg tablet oxcarbazepine 300 mg tablet hydroxyzine HCl 25 mg tablet bupropion HCl 300 mg tablet extended release 24 hr PO Vraylar 6 mg capsule 6 mg PO DAILY injection testosterone 0.15 mg subcut .two times a week venlafaxine 75 mg capsule,extended release 24hr 150 mg PO DAILY mwulmzldcyaojxa-jzjzcmwiw-QK [Bromfed DM] 2-30-10 mg/5 mL syrup 5 ml PO Q6H PRN (Reason: cold symptoms) Qty: 118 0RF sertraline 25 mg tablet 25 mg PO Q24H quetiapine 25 mg tablet 25 mg PO HS Print Language: Malian Instructions: Generalized Anxiety Disorder (ED) Referrals: ALFREDO JORGENSEN [Primary Care Provider, Family Practice] - 1 week Discharge Date/Time: 07/03/25 18:51
[2025-07-03 17:26] LABS: Alanine Aminotransferase 24 U/L (14-59); Albumin Globulin Ratio 0.8; Albumin Level 3.4 g/dL (3.4-5.0); Alkaline Phosphatase 75 U/L (46-116); Anion Gap 17.6; Aspartate Amino Transferase 16 U/L (15-37); Blood Urea Nitrogen 7.0 mg/dL (7.0-18.0); Calcium 9.6 mg/dL (8.5-10.1); Carbon Dioxide 20.9 mmol/L (21.0-32.0); Chloride 102 mmol/L (98-107); Estimated GFR (African America >60 (>=60 mL/min/1.73m^2); Estimated GFR (Non-African Ame >60 (>=60 mL/min/1.73m^2); Globulin 4.5 g/dL; Glucose 94 mg/dL (74-106); Magnesium 1.8 mg/dL (1.8-2.4); Potassium 3.5 mmol/L (3.5-5.1); Sodium 137 mmol/L (136-145); Thyroid Stimulating Hormone 2.903 uIU/mL (0.358-3.740); Total Protein 7.9 g/dL (6.4-8.2)
== END 2025-07-03 18:51 | disposition home or self-care (01) ==
PROVIDERS: Physician Assistant; Emergency Provider Emergency Medicine; PCP Nurse Practitioner Family
DX: O99.342 Other mental disorders complicating pregnancy, second trimester (principal); F41.9 Anxiety disorder, unspecified; F32.A Depression, unspecified; Z3A.14 14 weeks gestation of pregnancy; Z87.891 Personal history of nicotine dependence
CPT/HCPCS: 36415; 80053; 81001; 83735; 84439; 84443; 85025; 99284

== ENCOUNTER 2025-07-13 21:06 | Outpatient (REF) | payer OTHER, SELFPAY ==
--- OUTSIDE RECORDS SUMMARY | 2025-07-01 07:00 | XMS_ITS ---
Author Organization The [facility] in [place] Address [address] [place] [place] [address] Care Team Providers Care Egg Factory Worker Name Role Phone Carole Desouza Primary Care Provider REASON FOR VISIT yearly check up Encounters Encounter Location Date Provider Diagnosis [facility] [address] [place] [address] 07/01/2025 Carole Desouza Plan Of Treatment No Information Progress Notes * Kay TRISTAN MDOB: [birth year] (25 yo F)Acc No.[id number]:07/01/2025 UNLOCKED PROGRESS NOTE Progress Note Patient: Parth GODINEZabellavery Perez Provider: Jason Desouza (TTC), PLATFORM SUPERVISOR :2000 A ge:25 Y S ex:Female Date:07/01/2025 Address:[address] [place], [place] [id number] Subjective: * Chief Complaints: * 1 . Yearly check up. * Medical History: Objective: * Vitals: Assessment: Plan: * Treatment: * * Electronic signature of Suyapa Steel NP, LOOM CHANGEOVER OPERATOR.PLATFORM [id number] on 07/13/2025 at 02:29 PM EDT Sign off status: Pending Visit Status: N /S N/C (No Show/No Charge) * Provider: Jason TEIXEIRA), PLATFORM SUPERVISOR Date: Generated for Printi ng/Faxing/eTransmitting on: 02:29 PM EDT
--- OUTSIDE RECORDS SUMMARY | 2025-07-13 14:30 | XMS_ITS | Encounter Summary ---
Author Organization [facility] Address [address] [place] [address] Care Team Providers Care Paper Cleaner Name Role Phone Helio Campos MD Primary Care Provider [phone] Breana Loving CONSERVATION POLICY ANALYST Unavailable [phone] Reason for Visit * Reason Comments Routine Visit Gynecologic Exam STI Screening Encounter Details Date Type Department Care Team (Latest Contact Info) Description 07/13/2025 2:30 PM EDT Routine [facility] [address] [place] [place] [phone] Betsy Tate PA [address] [place], [facility]11 Yamini (Primary Dx); Second trimester ([facility]); 15 weeks gestation of ([facility]); Well woman exam with routine gynecological exam; Exposure to STD; Need for maternal serum alpha-protein (MSAFP) screening ([facility]); Screening, , for anatomic survey ([facility]) Social History Tobacco Use Types Packs/Day Years [...] Sign Reading Time Taken Comments Blood Pressure 116/72 07/13/2025 3:04 PM EDT Pulse - - Temperature - - Respiratory Rate - - Oxygen Saturation - - Inhaled Oxygen Concentration - - Weight 121 kg (267 lb) 07/13/2025 3:04 PM EDT Height - - Body Mass Index 53.93 03/23/2025 9:02 AM EDT documented in this encounter Progress Notes * Beata Greenberg MA - 07/13/2025 2:30 PM EDT Reason for Appointment: Patient ID: Kay Tristan is a 25 y.o. female who presents for Routine Visit, GynecologicExam, and STI Screening Patient presents today for Annual Exam., STD Check., and Return OB appointment. MEDICATIONS Current Outpatient Medications Medication Instructions QUEtiapine (SEROQUEL) 50 mg, Oral, Nightly Zoloft 25 mg, Daily ALLERGIES Allergies[1] PROBLEMS Active Ambulatory Problems Diagnosis Date Noted Bipolar disorder (HCC) 05/15/2025 Borderline personality disorder (HCC) 05/15/2025 Resolved Ambulatory Problems Diagnosis Date Noted No Resolved Ambulatory Problems Past Medical History: Diagnosis Date Bipolar 1 disorder (HCC) HISTORY PAST MEDICAL HISTORY SOCIAL HISTORY Medical History[2] Social History Tobacco Use Smoking status: Never Smokeless tobacco: Never Vaping Use Vaping status: Every Day Substance Use Topics Alcohol use: Never Drug use: Yes Frequency: 7.0 times per week Types: Marijuana Comment: everyday FAMILY HISTORY Family History[3] SURGICAL HISTORY Surgical History[4] REVIEW OF SYSTEMS Review of Systems: Review of Systems Constitutional: Negative. HENT: Negative. Eyes: Negative. Respiratory: Negative. Cardiovascular: Negative. Gastrointestinal: Negative. Genitourinary: Negative. Musculoskeletal: Negative. Skin: Negative. Tinea Rash to abdomen Neurological: Negative. All other systems reviewed and are negative. Hematological: Negative. Endocrine: Negative. Allergic/Immunologic: Negative. OBJECTIVE Objective: Physical Exam Constitutional: Appearance: Normal appearance. She is well-developed. Genitourinary: Vulva normal. Cardiovascular: Rate and Rhythm: Normal rate and [...] Skin: General: Skin is warm and dry. Comments: Tinea rash to abdominal panis Psychiatric: Mood and Affect: Mood normal. Behavior: Behavior normal. Vitals and nursing note reviewed. Exam conducted with a cargo worker present. Vitals: Estimated body mass index is 53.93 kg/m?? as calculated from the following: Height as of 03/23/25: 4' 11 . Weight as of this encounter: 267 lb. BP: 116/72 Patient's last menstrual period was 03/21/2025. ASSESSMENT & PLAN ICD-10-CM 1. Second trimester ([facility]) Z34.92 POCT urinalysis dipstick manually resulted 2. 15 weeks gestation of ([facility]) Z3A.15 3. Well woman exam with routine gynecological exam Z01.419 Pap Smear 4. Exposure to STD Z20.2 SURESWAB(R) ADVANCED VAGINITIS PLUS, TMA CHLAMYDIA TRACHOMATIS (GENITO/STI) Neisseria gonorrhea DNA probe, direct 5. Need for maternal serum alpha-protein (MSAFP) screening ([facility]) Z36.1 Alpha fetoprotein, maternal Alpha fetoprotein, maternal 6. Screening, , for anatomic survey ([facility]) Z36.89 US OB 14+ weeks anatomy scan Return OB/Annual Exam: Patient presents today for an annual exam/routine obstetrics appointment. Patient is currently 15w3d . Patient is doing well and states she has no complaints. Pap/cultures was obtained without difficulty and patient was given msAFP/Anatomy US order to have obtained. Orders Placed This Encounter Procedures US OB 14+ weeks anatomy scan CHLAMYDIA TRACHOMATIS (GENITO/STI) Neisseria gonorrhea DNA probe, direct Alpha fetoprotein, maternal POCT urinalysis dipstick manually resulted Follow Up: Patient is to return to our office in 4 weeks for routine OB appointment Documented by Beata Greenberg MA on behalf of: FRANCK Carreon [1] No Known Allergies [2] Past Medical History: Diagnosis Date Bipolar 1 disorder (HCC) [3] No family history on file. [4] History reviewed. No pertinent surgical history. documented in this encounter Plan of Treatment Upcoming Encounters Date Type Department Care Team (Late st Contact Info) Description 08/18/2025 10:00 AM EST Ancillary Procedure [facility] [address] [place] [place] [phone] 08/18/2025 11:10 AM EST Routine [facility] [address] [place] [phone] CharyCuong mays, [address] [place], [place] [phone] Scheduled Orders Name Type Priority Associated Diagnoses Orde r Schedule SURESWAB(R) ADVANCED VAGINITIS PLUS, TMA Pathology and Cytology Routine Exposure to STD Ordered: 07/13/2025 CHLAMYDIA TRACHOMATIS (GENITO/STI) Lab Routine Exposure to STD Ordered: 07/13/2025 Neisseria gonorrhea DNA probe, direct Lab Routine Exposure to STD Ordered: 07/13/2025 Pap Smear Pathology and Cytology Routine Well woman exam with routine gynecological exam Ordered: 07/13/2025 US OB 14+ weeks anatomy scan Imaging Routine Screening, , for anatomic survey ([facility]) Expected: 07/13/2025, Expires: 10/13/2025 Alpha fetoprotein, maternal Lab Routine Need for maternal serum alpha-protein (MSAFP) screening ([facility]) Expected: 07/13/2025 (Approximate), Expires: 07/13/2026 documented as of this encounter Procedures Procedure Name Priority Date/Time Associated Diagnosis Comments POCT URINALYSIS DIPSTICK Routine 07/13/2025 3:16 PM EDT Second trimester ([facility]) documented in this encounter Results * POCT urinalysis dipstick manually resulted (07/13/2025 3:16 PM EDT) Color, UA Yellow Clarity, UA Clear Glucose, UA Negative Negative - 2000(110) ++++ mg/dL Bilirubin, UA Negative Negative - 4(70) +++ mg/dL Ketones, UA Negative Negative - 160(16) ++++ mg/dL Spec Grav, UA 1.020 1 - 1.03 Blood, UA Negative Negative - 50 Yogesh/mcL pH, UA 6.0 5 - 9 Protein, UA Negative Negative - 2000(20) ++++ mg/dL Urobilinogen, UA 1.0 0.2 - 12 mg/dL Leukocytes, UA Negative Negative - 500+++ Jaci/mcL Nitrite, UA Negative Negative - Positive Urine 07/13/2025 3:16 PM EDT Betsy JUÁREZ POINT OF CARE TEST ENTER/EDIT OR DERABLES Final Result documented in this encounter Visit Diagnoses Diagnosis Tinea- Primary Dermatophytosis of unspecified site Second trimester ([facility]) state, incidental 15 weeks gestation of ([facility]) Well woman exam with routine gynecological exam Routine gynecological examination Exposure to STD Need for maternal serum alpha-protein (MSAFP) screening ([facility]) Screening, , for anatomic survey ([facility]) Encounter for anatomic survey documented in this encounter Care Teams Paper Cleaner Relationship Specialty Start Date End Date Helio Campos MD [address] [place] [address] PCP - General Family Medicine 04/05/23 Breana Loving NP [address] [place] [address] PCP - Yolanda Greenfield [facility] 12/30/2408/30 documented as of this encounter
--- OUTSIDE RECORDS SUMMARY | 2025-07-13 21:09 | XMS_ITS | Encounter Summary ---
Author Organization [facility] Address [address] [place] [address] Care Team Providers Care Instructional Design Technologist Name Role Phone Helio Campos MD Primary Care Provider [phone] Breana Loving GREENS CUTTER Unavailable [phone] Encounter Details Date Type Department Care Team (Late Contact Info) Description 07/13/2025 Abstract [facility] NIELSEN [address] [place], [place] [address] [address] Cuong Diez DO [facility] [address] [place], [facility] Social History Tobacco Use Types Packs/Day Years [...] Department Care Team (Late Contact Info) Description 08/18/2025 10:00 AM EST Ancillary Procedure ELA NIELSEN [facility] [place] [address] 08/18/2025 11:10 AM EST Routine LEA NIELSEN [address] [place] [address] Cuong Diez, [address] [place] [address] documented as of this encounter Visit Diagnoses Not on filedocumented in this encounter Care Teams Instructional Design Technologist Relationship Specialty Start Date End Date Helio Campos MD [address] [place] [address] PCP - General Family Medicine 04/05/23 Breana Loving NP [address] [place], [place] [phone] [facility] 12/30/[facility]08[facility]30 documented as of this encounter
--- OUTSIDE RECORDS SUMMARY | 2025-07-13 21:09 | XMS_ITS | CCD ---
Author Organization [facility] Care Team Providers Care Salesperson [employer] Name Role Phone MD Helio Florian Primary Care Provider [phone] MD Param Rao Admit Provider MD Param Rao Attending Provider [phone] MARKER, DR JONAS Admitting Unavailable MARKER, DR [...] Primary Care Unavailable Marcio Posada NP Unavailable CUONG DIEZ Attending Unavailable CUONG DIEZ Referring [...] Other custodial (current) drug therapy; Translations: [[facility] CURRENT DRUG THERAPY] Onset: 10-05-2021 Episodic Residual [...] UA Negative Negative - 4(70) +++ mg/dL [facility] Blood, UA Negative Negative - 50 Yogesh/mcL [facility] Clarity, UA Clear [facility] Color, UA Yellow [facility] Glucose, UA Negative Negative - 1999(110) ++++ mg/dL [facility] Interpretation and review of laboratory results Normal [facility] Ketones, UA Negative Negative - 160(16) ++++ mg/dL [facility] Leukocytes, UA Negative Negative - 500+++ Jaci/mcL [facility] Nitrite, UA Negative Negative - Positive [facility] pH, UA 6 5 - 9 [facility] Protein, UA Negative Negative - 1999(20) ++++ mg/dL [facility] Spec Grav, UA 1.025 1 - 1.03 [facility] Urobilinogen, UA 1.0 0.2 - 12 mg/dL [facility] BOX TESTon 05-29-2025 BOX TEST SENT OUT [facility] BOX1 [facility] BOX2 05/29/25 [facility] HCG ( test) Ql (U)o n 05-15-2025 Interpretation and review of laboratory results Abnormal [facility] Preg Test, Ur Positive Negative [facility] US OB TRANSVAGINALon 025 US OB TRANSVAGINAL [...] UA Negative Negative - 4(70) +++ mg/dL [facility] Blood, UA Negative Negative - 50 Yogesh/mcL [facility] Clarity, UA Clear [facility] Color, UA Yellow [facility] Glucose, UA Negative Negative - 1999(110) ++++ mg/dL [facility] Interpretation and review of laboratory results Normal [facility] Ketones, UA Negative Negative - 160(16) ++++ mg/dL [facility] Leukocytes, UA Negative Negative - 500+++ Jaci/mcL [facility] Nitrite, UA Negative Negative - Positive [facility] pH, UA 6 5 - 9 [facility] Protein, UA Negative Negative - 1999(20) ++++ mg/dL [facility] Spec Grav, UA 1.015 1 - 1.03 [facility] Urobilinogen, UA 1.0 0.2 - 12 mg/dL [facility] TB PREG QUANT HCGon 025 HCG QUANTITATIVE 275 mIU/mL [facility] Comment on above: 5-50 0.2-1 WEEK 50-500 1-2 WEEKS 100-5,000 2-3 WEEKS 500-10,000 3-4 WEEKS 1,000-50,000 4-5 WEEKS 10,000-100,000 5-6 WEEKS 15,000-200,000 6-8 WEEKS 10,000-100,000 [facility] 025 HCG QUANTITATIVE 97 mIU/mL [facility] Comment on above: 5-50 0.2-1 WEEK 50-500 1-2 WEEKS 100-5,000 2-3 WEEKS 500-10,000 3-4 WEEKS 1,000-50,000 4-5 WEEKS 10,000-100,000 5-6 WEEKS 15,000-200,000 6-8 WEEKS 10,000-100,000 2-3 MONTHS [facility] HCG ( test) Ql (U)o n 04-19-2025 Interpretation and review of laboratory results Normal [facility] Preg Test, Ur Negative Negative [facility] ALL PROGESTERONEon 5 PROGESTERONE 9.5 ng/mL . [facility] Comment on above: Follicular phase 0. 1 - 0.9 Luteal phase 1.8 - 23.9 Ovulation phase 0.1 - 12.0 First trimester 11.0 - 44.3 Second trimester 25.4 - 83.3 Third trimester 58.7 - 214.0 Postmenopausal 0.0 - 0.1 Performed at: [address], [place] [id number] Caul Dresser: Ilya Manjarrez PhD, Phone: [phone] [facility] MLR HEMOGLOBIN A1Con 025 Glucose [Mass/Vol] 105 mg/dL [facility] HbA1c (Bld) [Mass fraction] 5.3 % 4.5 - 6.2 % [facility] Comment on above: ADA RECOMMENDED LIMI T 4.0 - 6.0 ADA THERAPEUTIC TARGET < 7.0 ACTION SUGGESTED > 7.0 [facility] US PELVIC COMPLETE W/ TVon 0 03-24-2025 [...] II, MD, PHD at 25-Mar-2025 07:52:19 AM [employer] Normal Not Available Comment on above: Order Comment: US PE LVIS-TRANSVAG IF INDICATED Patient's last menstrual period was 03/21/2025. Cholesterol [Mass/volume] in Serum or PlasmaOrdered By: Param Rao on 09-13-2022 Cholesterol [Mass/Vol] 141 mg/dL 140-200 [facility] Comment on above: Chol less than 200 m g/dl low riskChol 201-239 mg/dl borderline riskChol 240 mg/dl and greater high risk Cholesterol in LDL Calc [Mas s/Vol]Ordered By: Param Rao on 09-13-2022 Cholesterol in LDL [Mass/Vol] 94 mg/dL 0-100 [facility] Comment on above: LDL ATP III CLASSIFI CATIONLDL less than 100 mg/dL OptimalLDL 100-129 mg/dL Near or above optimalLDL 130-159 mg/dL Borderline highLDL 160-189 mg/dL HighLDL greater than 189 mg/dL Very high Cholesterol in VLDL Calc [Ma ss/Vol]Ordered By: Param Rao on 09-13-2022 Cholesterol in VLDL [Mass/Vol] 9 mg/dL [facility] No Panel InformationOrdered By: Param Rao on 09-13-2022 25-Hydroxy Vitamin D Total 11.9 ng/mL 30-100 [facility] Comment on above: VITAMIN D STATUS [...] Cholesterol in HDL [Mass/Vol] 38 mg/dL 35-85 [facility] Comment on above: HDL CHOL ATP-III CLA SSIFICATION Cardiovascular RiskHDL > or equal to 60 mg/dL LOWHDL < 40 mg/dL HIGH Serum or plasma total choles terol/high density lipoprotein (HDL) cholesterol mass ratOrdered By: Param Rao on 09-13-2022 Cholesterol.total/Chol esterol in HDL [Mass ratio] 3.7 {ratio} <5.0 [facility] TSH DL <= 0.005 mIU/L QnOrde red By: Param Rao on 09-13-2022 TSH Qn 0.81 m[IU]/L 0.45-5.33 [facility] Triglyceride [Mass/volume] i n Serum or PlasmaOrdered By: Param Rao on 09-13-2022 Triglyceride [Mass/Vol] 45 mg/dL 35-149 [facility] Comment on above: TRIG ATP III CLASSIF ICATIONTRIG less than 150 mg/dL NormalTRIG 150-199 mg/dL Borderline highTRIG 200-500 mg/dL High TRIG greater than 500 mg/dL Very highStandard traceable to the Center for Disease Conrtrol and Prevention (CDC) test method. ACETAMINOPHENon 09-12-2022 Acetaminophen [Mass/Vol] ug/mL Critically low 10.0-30.0 [facility] Comment on above: Performed By: #### S ALYC, ACET, CMP #### [facility] [address] [place] [address] Dr. Machelle Garcia CBC AUTO DIFFon 09-12-2022 BASO # 0.0 103/ul Normal 0.0-0.1 [facility] Comment on above: Performed By: #### C BC #### [facility] [address] [place] [address] Dr. Machelle Garcia Basophils/100 WBC (Bld) 0.4 % Normal 0.2-2.0 [facility] Comment on above: Performed By: #### C BC #### [facility] [address] [place] [address] Dr. Machelle Garcia EO # 0.1 103/ul Normal 0.0-0.7 [facility] Comment on above: Performed By: #### C BC #### [facility] [address] [place] [address] Dr. Machelle Garcia Eosinophils/100 WBC (Bld) 0.8 % Critically low 0.9-7.0 [facility] Comment on above: Performed By: #### C BC #### [facility] [address] [place] [address] Dr. Machelle Garcia Erythrocyte distribution width (RBC) [Ratio] 12.4 % Normal 11.0-15.0 [facility] Comment on above: Performed By: #### C BC #### [facility] [address] [place] [address] Dr. Machelle Garcia Hematocrit (Bld) [Volume fraction] 40.4 % Normal 36.0-48.0 [facility] Comment on above: Performed By: #### C BC #### [facility] [address] [place] [address] Dr. Machelle Garcia Hemoglobin (Bld) [Mass/Vol] 14.3 g/dL Normal 12.0-16.0 [facility] Comment on above: Performed By: #### C BC #### [facility] [address] [place] [address] Dr. Machelle Garcia IG # 0.02 10e3/ul Normal 0.00-0.03 [facility] Comment on above: Performed By: #### C BC #### [facility] [address] [place] [address] Dr. Machelle Garcia IG % 0.3 % Normal 0.0-0.5 [facility] Comment on above: Performed By: #### C BC #### [facility] [address] [place] [address] Dr. Machelle Garcia LYMPH # 1.0 103/ul Critically low 1.2-3.8 [facility] Comment on above: Performed By: #### C BC #### [facility] [address] [place] [address] Dr. Machelle Garcia Lymphocytes/100 WBC (Bld) 14.1 % Critically low 20.5-60.0 [facility] Comment on above: Performed By: #### C BC #### [facility] [address] [place] [address] Dr. Machelle Garcia MANUAL DIFF REQ NO Normal [facility] Comment on above: Performed By: #### C BC #### [facility] [address] [place] [address] Dr. Mcahelle Garcia MCH (RBC) [Entitic mass] 29.7 pg Normal 26.7-34.0 [facility] Comment on above: Performed By: #### C BC #### [facility] [address] [place] [address] Dr. Machelle Garcia MCHC (RBC) [Mass/Vol] 35.4 g/dL Critically high 29.9-35.2 [facility] Comment on above: Performed By: #### C BC #### [facility] [address] [address] [address] Machelle Garcia MCV (RBC) [Entitic vol] 83.8 fL Normal 81.0-99.0 [facility] Comment on above: Performed By: #### C BC #### [facility] [address] [address] [address] Machelle Garcia MONO # 0.9 103/ul Critically high 0.3-0.8 [facility] Comment on above: Performed By: #### C BC #### [facility] [address] [address] [address] Machelle Garcia Monocytes/100 WBC (Bld) 12.6 % Critically high 1.7-12.0 [facility] Comment on above: Performed By: #### C BC #### [facility] [address] [place] [address] Dr. Machelle Garcia NEUT # 5.2 103/ul Normal 1.4-6.5 [facility] Comment on above: Performed By: #### C BC #### [facility] [address] [place] [address] Dr. Machelle Garcia Neutrophils/100 WBC (Bld) 71.8 % Normal 43.0-75.0 [facility] Comment on above: Performed By: #### C BC #### [facility] [address] [place] [address] Dr. Machelle Garcia Platelet mean volume (Bld) [Entitic vol] 9.9 fL Normal 9.5-13.5 [facility] Comment on above: Performed By: #### C BC #### [facility] [address] [place] [address] Dr. Machelle Garcia PLT 245 103/ul Normal 150-450 [facility] Comment on above: Performed By: #### C BC #### [facility] [address] [place] [address] Dr. Machelle Garcia RBC 4.82 106/ul Normal 4.20-5.40 [facility] Comment on above: Performed By: #### C BC #### [facility] [address] [address] [address] Machelle Garcia WBC 7.2 103/ul Normal 4.0-11.0 [facility] Comment on above: Performed By: #### C BC #### [facility] [address] [address] [address] Machelle Garcia DRUG SCREEN RAPID (URINE)on 09-12-2022 AMP Negative Normal NEGATIVE [facility] Comment on above: Performed By: #### D RUGRPD ####[facility] [address] [address]Dr. Machelle Garcia BAR Negative Normal NEGATIVE [facility] Comment on above: Performed By: #### D RUGRPD ####[facility] [address] [address]Dr. Machelle Garcia BUP Negative Normal NEGATIVE [facility] Comment on above: Performed By: #### D RUGRPD ####[facility] [address] [address]Dr. Machelle Garcia BZO Negative Normal NEGATIVE [facility] Comment on above: Performed By: #### D RUGRPD ####[facility] [address] [address]Dr. Machelle Garcia JOHN Negative Normal NEGATIVE [facility] Comment on above: Performed By: #### D RUGRPD ####[facility] [address] [address]Dr. Machelle Garcia CUT-OFFS SEE BELOW Normal [facility] Comment on above: Result [...] 300 ng/mL Performed By: #### D RUGRPD ####[facility] [address] [place] [id number]. Machelle Garcia DRUG CUT HEADER DRUG CLASS TEST SYSTEM CUT-OFF CONCENTRATIONS ARE FOLLOWS: Normal [facility] Comment on above: Performed By: #### D RUGRPD ####[facility] [address] [place] [id number]. Machelle Garcia mAMP Negative Normal NEGATIVE [facility] Comment on above: Performed By: #### D RUGRPD ####[facility] [address] [address]Dr. Janielan Jose MTD Negative Normal NEGATIVE [facility] Comment on above: Performed By: #### D RUGRPD ####[facility] [address] [place], [place] [address]Dr. Machelle Garcia OPI Negative Normal NEGATIVE [facility] Comment on above: Performed By: #### D RUGRPD ####[facility] [address] [place], [place] [address]Dr. Yilan Garcia OXY Negative Normal NEGATIVE [facility] Comment on above: Performed By: #### D RUGRPD ####[facility] [address] [place], [place] [address]Dr. Janielan Jose PCP Negative Normal NEGATIVE [facility] Comment on above: Performed By: #### D RUGRPD ####[facility] [address] [place], [place] [address]Dr. Janielan Jose PPX Negative Normal NEGATIVE [facility] Comment on above: Performed By: #### D RUGRPD ####[facility] [address] [address]Dr. Janielan Jose TCA Negative Normal NEGATIVE [facility] Comment on above: Performed By: #### D RUGRPD ####[facility] [address] [place], [place] [address]Dr. Machelle Garcia THC Positive Abnormal NEGATIVE [facility] Comment on above: Performed By: #### D RUGRPD ####[facility] [address] [place], [place] [address]Dr. Machelle Garcia ER URINE PROFILEon 2 Bilirubin Ql (U) Negative Normal NEGATIVE [facility] Comment on above: Performed By: #### P REGU, ERUR #### [facility] [address] [address] [address] Machelle Garcia Clarity (U) CLEAR Normal CLEAR [facility] Comment on above: Performed By: #### P REGU, ERUR #### [facility] [address] [address] [address] Machelle Garcia Color (U) LT. YELLOW Normal YELLOW [facility] Comment on above: Performed By: #### P REGU, ERUR #### [facility] [address] [place] [address] Dr. Machelle TAYLOR A micrscopic examination will be performed if indicated. Normal [facility] Comment on above: Performed By: #### P REGU, ERUR #### [facility] [address] [place] [address] Dr. Machelle Garcia Glucose Ql (U) Negative Normal NEGATIVE [facility] Comment on above: Performed By: #### P REGU, ERUR #### [facility] [address] [place] [address] Dr. Machelle Garcia Hemoglobin Ql (U) Negative Normal NEGATIVE [facility] Comment on above: Performed By: #### P REGU, ERUR #### [facility] [address] [place] [address] Dr. Machelle Garcia Ketones Ql (U) TRACE Abnormal NEGATIVE [facility] Comment on above: Performed By: #### P REGU, ERUR #### [facility] [address] [address] [address] Machelle Garcia LEUKOCYTES Negative Normal NEGATIVE [facility] Comment on above: Performed By: #### P REGU, ERUR #### [facility] [address] [place] [address] Dr. Machelle Garcia Nitrite Ql (U) Negative Normal NEGATIVE [facility] Comment on above: Performed By: #### P REGU, ERUR #### [facility] [address] [address] [address] Machelle Garcia pH (U) 5.5 [pH] Normal 5-9 [facility] Comment on above: Performed By: #### P REGU, ERUR #### [facility] [address] [place] [address] Dr. Machelle Garcia SPEC GRAVITY 1.020 Normal 1.005-<=1.02 5 [facility] Comment on above: Performed By: #### P REGU, ERUR #### [facility] [address] [place] [address] Dr. Machelle Garcia UA PROTEIN Negative Normal NEGATIVE/ TRACE [facility] Comment on above: Performed By: #### P REGU, ERUR #### [facility] [address] [place] [address] Dr. Machelle Garcia UR MICRO IND NOT INDICATED Normal [facility] Comment on above: Performed By: #### P REGU, ERUR #### [facility] [address] [place] [address] Dr. Machelle Garcia Urobilinogen Qn (U) 0.2 {Jeanine'U}/dL Normal 0.2 - 1. 0 [facility] Comment on above: Performed By: #### P REGU, ERUR #### [facility] [address] [place] [address] Dr. Machelle Garcia ETHANOL (BLD ALC)on 09-12-20 22 ALC NOTE NOTE: 80 mg/dl is th e legal limit for a blood alcohol level Normal [facility] Comment on above: Performed By: #### E TH ####[facility] [address] [address]Dr. Machelle Garcia Ethanol [Mass/Vol] mg/dL Normal [facility] Comment on above: Performed By: #### E TH ####[facility] [address] [id number]. Machelle Garcia URon 09-12-2022 , QUAL Negative Normal NEGATIVE [facility] Comment on above: Performed By: #### P REGU, ERUR #### [facility] [address] [address] [address] Machelle Garcia PROF 14(COMP METB)on 022 Albumin [Mass/Vol] 3.9 g/dL Normal 3.4-5.0 [facility] Comment on above: Performed By: #### S ALYC, ACET, CMP #### [facility] [address] [address] [address] Machelle Garcia Albumin/Globulin [Mass ratio] 1.1 {ratio} Normal [facility] Comment on above: Performed By: #### S ALYC, ACET, CMP #### [facility] [address] [address] [address] Machelle Garcia ALP [Catalytic activity/Vol] 89 U/L Normal 46-116 [facility] Comment on above: Performed By: #### S ALYC, ACET, CMP #### [facility] [address] [address] [address] Machelle Garcia ALT [Catalytic activity/Vol] 19 U/L Normal 14-59 [facility] Comment on above: Performed By: #### S ALYC, ACET, CMP #### [facility] [address] [address] [address] Machelle Garcia Anion gap [Moles/Vol] 12.1 mmol/L Normal [facility] Comment on above: Performed By: #### S ALYC, ACET, CMP #### [facility] [address] [address] [address] Machelle Garcia AST [Catalytic activity/Vol] 16 U/L Normal 15-37 [facility] Comment on above: Performed By: #### S ALYC, ACET, CMP #### [facility] [address] [address] [address] Machelle Garcia Bilirubin [Mass/Vol] 0.4 mg/dL Normal 0.2-1.0 [facility] Comment on above: Performed By: #### S ALYC, ACET, CMP #### [facility] [address] [address] [address] Machelle Garcia Calcium [Mass/Vol] 9.0 mg/dL Normal 8.5-10.1 [facility] Comment on above: Performed By: #### S ALYC, ACET, CMP #### [facility] [address] [address] [address] Machelle Garcia Chloride [Moles/Vol] 104 mmol/L Normal 98-107 [facility] Comment on above: Performed By: #### S ALYC, ACET, CMP #### [facility] [address] [address] [address] Machelle Garcia CO2 [Moles/Vol] 25.5 mmol/L Normal 21.0-32.0 [facility] Comment on above: Performed By: #### S ALYC, ACET, CMP #### [facility] [address] [place] [address] Dr. Machelle Garcia Creatinine [Mass/Vol] 0.86 mg/dL Normal 0.55-1.02 [facility] Comment on above: Performed By: #### S ALYC, ACET, CMP #### [facility] [address] [address] [address] Machelle Garcia EGFR-AF TAIWANESE >60 Normal >=60 [facility] Comment on above: Performed By: #### S ALYC, ACET, CMP #### [facility] [address] [place] [address] Dr. Machelle Garcia EGFR-NON AF TAIWANESE >60 Normal >=60 [facility] Comment on above: Performed By: #### S ALYC, ACET, CMP #### [facility] [address] [address] [address] Machelle Garcia Globulin (S) [Mass/Vol] 3.4 g/dL Normal [facility] Comment on above: Performed By: #### S ALYC, ACET, CMP #### [facility] [address] [address] [address] Machelle Garcia Glucose [Mass/Vol] 102 mg/dL Normal 74-106 [facility] Comment on above: Performed By: #### S ALYC, ACET, CMP #### [facility] [address] [address] [address] Machelle Garcia Potassium [Moles/Vol] 3.6 mmol/L Normal 3.5-5.1 [facility] Comment on above: Performed By: #### S FAITH PIERSON, CMP #### [facility] [address] [address] [address] Machelle Garcia Protein [Mass/Vol] 7.3 g/dL Normal 6.4-8.2 [facility] Comment on above: Performed By: #### S KENNA ACET, CMP #### [facility] [address] [address] [address] Machelle Garcia Sodium [Moles/Vol] 138 mmol/L Normal 136-145 [facility] Comment on above: Performed By: #### S FAITH PIERSON, CMP #### [facility] [address] [place] [address] Dr. Machelle Garcia Urea nitrogen [Mass/Vol] 10.0 mg/dL Normal 7.0-18.0 [facility] Comment on above: Performed By: #### S KENNA ACET, CMP #### [facility] [address] [place] [address] Dr. Machelle Garcia Urea nitrogen/Creatinine [Mass ratio] 11.6 mg/mg Normal [facility] Comment on above: Performed By: #### S FAITH PIERSON, CMP #### [facility] [address] [place] [address] Dr. Machelle Garcia SALICYLATEon 09-12-2022 SALICYLATE <2.8 Normal <=19.9 [facility] Comment on above: Performed By: #### S KENNA ACET, CMP #### [facility] [address] [place] [address] Dr. Machelle Garcia XR CHEST 1 Von [...] ROSEANNE GRADY Date: 2021-10-03 20:52 Normal [facility] CBC AUTO DIFFon 09-30-2021 BASO # 0.0 103/ul Normal 0.0-0.1 [facility] Comment on above: Performed By: #### C BC #### [facility] [address] [place] [address] Dr. Machelle Garcia Basophils/100 WBC (Bld) 0.4 % Normal 0.2-2.0 [facility] Comment on above: Performed By: #### C BC #### [facility] [address] [address] [address] Machelle Garcia EO # 0.1 103/ul Normal 0.0-0.7 [facility] Comment on above: Performed By: #### C BC #### [facility] [address] [place] [address] Dr. Machelle Garcia Eosinophils/100 WBC (Bld) 1.3 % Normal 0.9-7.0 [facility] Comment on above: Performed By: #### C BC #### [facility] [facility] [address] [place] [address] Dr. Machelle Garcia Erythrocyte distribution width (RBC) [Ratio] 12.8 % Normal 11.0-15.0 [facility] Comment on above: Performed By: #### C BC #### [facility] [address] [place] [address] Dr. Machelle Garcia Hematocrit (Bld) [Volume fraction] 40.7 % Normal 36.0-48.0 [facility] Comment on above: Performed By: #### C BC #### [facility] [address] [place] [address] Dr. Machelle Garcia Hemoglobin (Bld) [Mass/Vol] 13.7 g/dL Normal 12.0-16.0 [facility] Comment on above: Performed By: #### C BC #### [facility] [address] [place] [address] Dr. Machelle Garcia IG # 0.03 10e3/ul Normal 0.00-0.03 [facility] Comment on above: Performed By: #### C BC #### [facility] [address] [place] [address] Dr. Machelle Garcia IG % 0.4 % Normal 0.0-0.5 [facility] Comment on above: Performed By: #### C BC #### [facility] [address] [address] [address] Machelle Garcia LYMPH # 0.6 103/ul Critically low 1.2-3.8 The [facility] Comment on above: Performed By: #### C BC #### [facility] [address] [place] [address] Dr. Machelle Garcia Lymphocytes/100 WBC (Bld) 8.8 % Critically low 20.5-60.0 [facility] Comment on above: Performed By: #### C BC #### [facility] [address] [place] [address] Dr. Machelle Garcia MANUAL DIFF REQ NO Normal The [facility] Comment on above: Performed By: #### C BC #### [facility] [address] [place] [address] Dr. Machelle Garcia MCH (RBC) [Entitic mass] 29.0 pg Normal 26.7-34.0 [facility] Comment on above: Performed By: #### C BC #### [facility] [address] [place] [address] Dr. Machelle Garcia MCHC (RBC) [Mass/Vol] 33.7 g/dL Normal 29.9-35.2 [facility] Comment on above: Performed By: #### C BC #### [facility] [address] [place] [address] Dr. Machelle Garcia MCV (RBC) [Entitic vol] 86.2 fL Normal 81.0-99.0 [facility] Comment on above: Performed By: #### C BC #### [facility] [address] [place] [address] Dr. Machelle Garcia MONO # 1.0 103/ul Critically high 0.3-0.8 [facility] Comment on above: Performed By: #### C BC #### [facility] [address] [place] [address] Dr. Machelle Garcia Monocytes/100 WBC (Bld) 14.4 % Critically high 1.7-12.0 [facility] Comment on above: Performed By: #### C BC #### [facility] [address] [place] [address] Dr. Machelle Garcia NEUT # 5.1 103/ul Normal 1.4-6.5 [facility] Comment on above: Performed By: #### C BC #### [facility] [address] [place] [address] Dr. Machelle Garcia Neutrophils/100 WBC (Bld) 74.7 % Normal 43.0-75.0 [facility] Comment on above: Performed By: #### C BC #### [facility] [address] [place] [address] Dr. Machelle Garcia Platelet mean volume (Bld) [Entitic vol] 9.7 fL Normal 9.5-13.5 [facility] Comment on above: Performed By: #### C BC #### [facility] [address] [place] [address] Dr. Machelle Garcia PLT 211 103/ul Normal 150-450 [facility] Comment on above: Performed By: #### C BC #### [facility] [address] [place] [address] Dr. Machelle Garcia RBC 4.72 106/ul Normal 4.20-5.40 [facility] Comment on above: Performed By: #### C BC #### [facility] [address] [place] [address] Dr. Machelle Garcia WBC 6.8 103/ul Normal 4.0-11.0 [facility] Comment on above: Performed By: #### C BC #### [facility] [address] [place] [address] Dr. Machelle Garcia Covid-19 PCR ([facility])on 09-02 SARS-CoV-2 (COVID-19) RNA BERNARDINO+probe Ql (Unsp spec) Detected Critically abnormal NOT DETECTED [facility] Comment on above: Result Comment: This test is not yet approved or cleared by the [place] FDA. When there are no FDA-approved or cleared tests available, and other criteria are met, FDA can make tests available under an emergency access mechanism called an Emergency Use Authorization (EUA). The EUA for this test is supported by the Employee Benefits Attorney of Health and Human Service's declaration that [...] used). Performed By: #### C VDTBH #### [facility] [address] [place] [address] Dr. Machelle Garcia D-DIMERon 09-30-2021 D-DIMER 0.37 mg/L FEU Normal 0.19-0.50 The [facility] Comment on above: Performed By: #### D DIM #### [facility] [address] [place] [address] Dr. Machelle Garcia D-DIMER COMMENTS SEE BELOW Normal The [facility] Comment on above: Result Comment: Incr [...] hospitalization. Performed By: #### D DIM #### [facility] [address] [address] [address] Machelle Garcia PROF 14(COMP METB)on 021 Albumin [Mass/Vol] 3.5 g/dL Normal 3.5-5.0 [facility] Comment on above: Performed By: #### C MP ####[facility] [address] [id number]. Machelle Garcia Albumin/Globulin [Mass ratio] 0.9 {ratio} Normal [facility] Comment on above: Performed By: #### C MP ####[facility] [address] [address]Dr. Machelle Garcia ALP [Catalytic activity/Vol] 81 U/L Normal 38-126 [facility] Comment on above: Performed By: #### C MP ####[facility] [address] [id number]. Machelle Jose ALT [Catalytic activity/Vol] 44 U/L Normal 9-52 [facility] Comment on above: Performed By: #### C MP ####[facility] [address] [address]Dr. Janiekelsey Jose Anion gap [Moles/Vol] 12.2 mmol/L Normal [facility] Comment on above: Performed By: #### C MP ####[facility] [address] [place], [place] [address]Dr. Machelle Jose AST [Catalytic activity/Vol] 17 U/L Normal 14-36 [facility] Comment on above: Performed By: #### C MP ####[facility] [address] [place], [place] [address]Dr. Janiekelsey Jose Bilirubin [Mass/Vol] 0.3 mg/dL Normal 0.2-1.3 [facility] Comment on above: Performed By: #### C MP ####[facility] [address] [place], [place] [address]Dr. Machelle Garcia Calcium [Mass/Vol] 8.7 mg/dL Normal 8.4-10.2 [facility] Comment on above: Performed By: #### C MP ####[facility] [address] [address]Dr. Machelle Garcia Chloride [Moles/Vol] 103 mmol/L Normal 98-107 [facility] Comment on above: Performed By: #### C MP ####[facility] [address] [address]Dr. Machelle Garcia CO2 [Moles/Vol] 25.3 mmol/L Normal 22.0-30.0 [facility] Comment on above: Performed By: #### C MP ####[facility] [address] [address]Dr. Machelle Garcia Creatinine [Mass/Vol] 0.87 mg/dL Normal 0.52-1.04 [facility] Comment on above: Performed By: #### C MP ####[facility] [address] [address]Dr. Machelle Garcia EGFR-AF TAIWANESE >60 Normal >=60 [facility] Comment on above: Performed By: #### C MP ####[facility] [address] [address]Dr. Machelle Garcia EGFR-NON AF TAIWANESE >60 Normal >=60 [facility] Comment on above: Performed By: #### C MP ####[facility] [address] [place], [place] [address]Dr. Machelle Garcia Globulin (S) [Mass/Vol] 3.8 g/dL Normal [facility] Comment on above: Performed By: #### C MP ####[facility] [address] [place], [place] [address]Dr. Machelle Garcia Glucose [Mass/Vol] 99 mg/dL Normal 74-106 [facility] Comment on above: Performed By: #### C MP ####[facility] [address] [place], [place] [address]Dr. Machelle Garcia Potassium [Moles/Vol] 3.5 mmol/L Normal 3.4-5.0 [facility] Comment on above: Performed By: #### C MP ####[facility] [address] [place], [place] [address]Dr. Machelle Garcia Protein [Mass/Vol] 7.3 g/dL Normal 6.1-8.2 [facility] Comment on above: Performed By: #### C MP ####[facility] [address] [place], [place] [address]Dr. Machelle Garcia Sodium [Moles/Vol] 137 mmol/L Normal 137-145 [facility] Comment on above: Performed By: #### C MP ####[facility] [address] [place], [place] [address]Xe. Machelle Garcia Urea nitrogen [Mass/Vol] 11.0 mg/dL Normal 6.4-19.3 [facility] Comment on above: Performed By: #### C MP ####[facility] [address] [place], [place] [address]Yt. Machelle Garcia Urea nitrogen/Creatinine [Mass ratio] 12.6 mg/mg Normal [facility] Comment on above: Performed By: #### C MP ####[facility] [address] [place], [place] [address]Jq. Machelle Garcia Cytology Cervical or vaginal smear or scraping studyOrdered By: Beata Greenberg on 12-09-2020 [facility] Vital Signs Date Time Vital Sign Value Performing Clinician Facility 06-15-2025 10:55-0400 Body mass index (BMI) [Ratio] 53 kg/m2 [employer] DO Work Phone: [facility] 06-15-2025 10:55-0400 Body weight 119.02 kg Cuong Chary DO Work Phone: [facility] 06-15-2025 10:55-0400 Diastolic blood pressure 70 mm[Hg] Cuong Chary DO Work Phone: [facility] 06-15-2025 10:55-0400 Systolic blood pressure 118 mm[Hg] Cuong Chary DO Work Phone: [facility] 05-15-2025 10:37-0400 Body mass index (BMI) [Ratio] 53.52 kg/m2 Chary Ob [facility] 05-15-2025 10:37-0400 Body weight 120.2 kg Chary Ob [facility] 05-15-2025 10:37-0400 Diastolic blood pressure 74 mm[Hg] Chary Ob [facility] 05-15-2025 10:37-0400 Systolic blood pressure 124 mm[Hg] Chary Ob [facility] 04-19-2025 09:36-0400 Body mass index (BMI) [Ratio] 51.71 kg/m2 Monty Lemons DO Work Phone: [facility] 04-19-2025 09:36-0400 Body temperature 98.71 [degF] Monty Lemons DO Work Phone: [facility] 04-19-2025 09:36-0400 Body weight 116.12 kg Monty Lemons DO Work Phone: [facility] 04-19-2025 09:36-0400 Diastolic blood pressure 72 mm[Hg] Monty Lemons DO Work Phone: [facility] 04-19-2025 09:36-0400 Heart rate 111 /min Monty Lemons DO Work Phone: [facility] 04-19-2025 09:36-0400 SaO2% (BldA) [Mass fraction] 99 % Monty Lemons DO Work Phone: [facility] 04-19-2025 09:36-0400 Systolic blood pressure 122 mm[Hg] Monty Lemons DO Work Phone: [facility] 03-23-2025 09:02-0400 Body height 149.9 cm Cuong Chary DO Work Phone: [facility] 03-23-2025 09:02-0400 Body mass index (BMI) [Ratio] 51.71 kg/m2 Cuong Chary DO Work Phone: [facility] 03-23-2025 09:02-0400 Body weight 116.12 kg Cuong Chary DO Work Phone: [facility] 03-23-2025 09:02-0400 Diastolic blood pressure 70 mm[Hg] Cuong Chary DO Work Phone: [facility] 03-23-2025 09:02-0400 Systolic blood pressure 120 mm[Hg] Cuong Chary DO Work Phone: [facility] 09-09-2024 12:49-0500 Body mass index (BMI) [Ratio] 63.11 kg/m2 Marciovish Posada NUCLEAR TEST TECHNICIAN Work Phone: [facility] 09-09-2024 12:49-0500 Body temperature 98.1 [degF] Marcio Posada NUCLEAR TEST TECHNICIAN Work Phone: [facility] 09-09-2024 12:49-0500 Body weight 105.9 kg Marcio Posada NUCLEAR TEST TECHNICIAN Work Phone: [facility] 09-09-2024 12:49-0500 Diastolic blood pressure 80 mm[Hg] Marcio Posada NUCLEAR TEST TECHNICIAN Work Phone: [facility] 09-09-2024 12:49-0500 Heart rate 103 /min Marcio Posada NUCLEAR TEST TECHNICIAN Work Phone: [facility] 09-09-2024 12:49-0500 SaO2% (BldA) [Mass fraction] 98 % Marcio Posada NUCLEAR TEST TECHNICIAN Work Phone: [facility] 09-09-2024 12:49-0500 Systolic blood pressure 100 mm[Hg] Marcio Posada NUCLEAR TEST TECHNICIAN Work Phone: [facility] 09-15-2022 07:26-0500 Body temperature 98.4 [degF] MD Helio Florian Work Phone: [facility] 09-15-2022 07:26-0500 Diastolic blood pressure 70 mm[Hg] MD Helio Florian Work Phone: [facility] 09-15-2022 07:26-0500 Heart rate 92 /min MD Helio Florian Work Phone: [facility] 09-15-2022 07:26-0500 Respiratory rate 16 /min MD Helio Florian Work Phone: [facility] 09-15-2022 07:26-0500 SaO2% (BldA) [Mass fraction] 97 % MD Helio Florian Work Phone: [facility] 09-15-2022 07:26-0500 Systolic blood pressure 117 mm[Hg] MD Helio Florian Work Phone: [facility] 09-13-2022 00:57-0500 Body height 149.86 cm MD Helio Florian Work Phone: [facility] 09-13-2022 00:57-0500 Body weight 90.71 kg MD Helio Florian Work Phone: [facility] Encounters Encounter Date Encounter Type Care Provider Facility Start: 06-15-2025 End: 06-15-2025 Bamboo flowsheet Cuong Chary DO Work Phone: [facility] Start: 06-15-2025 End: 06-15-2025 Bamboo flowsheet Cuong Chary DO Work Phone: [facility] Start: 06-15-2025 End: 06-15-2025 Office outpatient visit 15 minutes Cuong Chary DO Work Phone: [facility] Comment on above: Second trimester pre gnancy ([facility]); First trimester ([facility]); 11 weeks gestation of ([facility]) Start: 06-15-2025 End: 06-15-2025 ambulatory CUONG CHARY Not Available Start: 05-29-2025 End: 05-29-2025 Clinisync Result Encounter Columba Temple NP Work Phone: [facility] Unsolicited Start: 05-29-2025 End: 05-29-2025 Clinisync Result Encounter Columba Temple NUCLEAR TEST TECHNICIAN Work Phone: [facility] Unsolicited Start: 05-15-2025 End: 05-15-2025 ambulatory Chary Nurse [facility] [employer] Comment on above: GA: 7w0d Start: 04-23-2025 [...] Dx); Amenorrhea Start: 04-14-2025 ambulatory Dante Esparza acility:[facility] Start: 04-10-2025 End: 04-11-2025 Clinisync Result [...] Office outpatient visit 25 minutes Marcio Posada NUCLEAR TEST TECHNICIAN Work Phone: [facility] Comment on above: Acute cough (Primary Dx); Bronchitis Start: 09-09-2024 End: 09-09-2024 ambulatory MARCIO POSADA Not Available Start: 09-13-2022 End: 09-15-2022 Evaluation and management of inpatient MD Helio Florian Work Phone: [facility] Start: 09-12-2022 End: 09-13-2022 ambulatory TAL IQBAL Facility:[facility] Start: 10-19-2021 End: 10-19-[address] HELIO FLORIAN Facility:[facility] Start: 10-03-2021 End: 10-03-[address] HELIO FLORIAN Facility:[facility] Start: 09-30-2021 End: 09-30-[address] SUMI DURON Facility:[facility] Procedures Date Procedure Procedure Detail Performing Clinician Start: 06-15-2025 Urnls dip stick/tabl et rgnt non-auto w/o micrscp Cuong Chary DO Work Phone: Start: 05-29-2025 BOX TEST Columba tong NUCLEAR TEST TECHNICIAN Work Phone: Start: 05-15-2025 Urnls dip stick/tabl et rgnt non-auto w/o micrscp Cuong Chary DO Work Phone: Start: 04-23-2025 [facility] PREG QUANT HCG Core y Chayr DO Work Phone: Start: 04-21-2025 [facility] PREG [...] PM EDT Routine LEA Jaramillo OBPILI [address] [place] [address] Betsy Tate PA [address] [address] [facility] Start: 06-15-2025 End: 06-15-2025 Patient encounter procedure JAMESS [facility] Comment on above: Arrived Start: 06-01-2025 [facility] Start: 05-15-2025 End: 05-15-2026 ABO/Rh ABO/Rh Lab Routine Missed menses , unspecified gestational age ([facility]) Expected: 05/15/2025 (Approximate), Expires: 05/15/2026 [facility] Comment on above: Expected: 05/15/2025 (Approximate), Expires: 05/15/2026 Start: 05-15-2025 End: 05-15-2026 Blood type and Indirect antibody screen panel - Blood Type and screen Lab Routine Missed menses , unspecified gestational age [facility] Expected: 05/15/2025 (Approximate), Expires: 05/15/2026 [facility] Comment on above: Expected: 05/15/2025 (Approximate), Expires: 05/15/2026 Start: 05-15-2025 End: 05-15-2026 Drugs of abuse panel - Urine by Screen method Rapid drug screen, urine Lab Routine , unspecified gestational age ([facility]) Encounter for supervision of normal first in first trimester ([facility]) Expected: 05/15/2025 (Approximate), Expires: 05/15/2026 [facility] Comment on above: Expected: 05/15/2025 (Approximate), Expires: 05/15/2026 Start: 05-15-2025 End: 05-15-2025 ambulatory 05/15/2025 10:00 AM EDT Initial [facility] [address] [place] [address] [facility] Start: 05-15-2025 End: 05-15-2025 Professional / ancillary services management 05/15/2025 9:30 AM EDT Ancillary Procedure [facility] [address] [place] [address] [facility] Start: 05-06-2025 End: 08-06-2025 US Pelvis transvaginal US OB transvaginal Imaging Routine Missed menses Positive urine test ([facility]) Expected: 05/06/2025, Expires: 08/06/2025 [facility] Work Phone: Comment on above: Expected: 05/06/2025 , Expires: 08/06/2025 Start: 03-24-2025 End: 03-24-2025 Professional / ancillary services management 03/24/2025 10:00 AM EDT Ancillary Procedure [facility] [address] [place] [address] [facility] Start: 03-23-2025 End: 03-23-2026 [...] ovarian syndrome) Expected: 03/23/2025 (Approximate), Expires: 03/23/2026 [facility] Comment on above: Expected: 03/23/2025 [...] ovarian syndrome) Expected: 03/23/2025 (Approximate), Expires: 03/23/2026 [facility] Comment on above: Expected: 03/23/2025 (Approximate), Expires: 03/23/2026 Start: 03-23-2025 End: 03-23-2026 Thyroxine (T4) free [Mass/volume] in Serum or Plasma T4, free Lab Routine Female infertility PCOS (polycystic ovarian syndrome) Expected: 03/23/2025 (Approximate), Expires: 03/23/2026 [facility] Comment on above: Expected: 03/23/2025 (Approximate), Expires: 03/23/2026 Start: 03-23-2025 End: 03-23-2026 US Pelvis US Pelvis w/ TV Imaging Routine Female infertility PCOS (polycystic ovarian syndrome) Expected: 03/23/2025, Expires: 03/23/2026 [facility] Comment on above: Expected: 03/23/2025 , Expires: 03/23/2026 Start: 06-01-2024 Influenza vaccination Influenza Vacc ine (#1) [facility] Start: 09-15-2022 [facility] Start: 09-13-2022 Hospital admission [facility] Bacteria identified in Urine by Culture Urine culture Microbiology Routine Missed menses Ordered: 05/15/2025 [facility] Comment on above: Ordered: 05/15/2025 CBC W Auto Different ial panel - Blood CBC and differential Lab Routine Missed menses , unspecified gestational age ([facility]) Ordered: 05/15/2025 [facility] Comment on above: Ordered: 05/15/2025 hCG, quantitative, hCG, quantitative, Lab Routine Possible Amenorrhea Ordered: 04/19/2025 [facility] Comment on above: Ordered: 04/19/2025 hCG, serum, qualitative hCG, ser um, qualitative Lab Routine Possible Amenorrhea Ordered: 04/19/2025 [facility] Work Phone: Comment on above: Ordered: 04/19/2025 Hemoglobin A1c/Hemoglobin.total in Blood Hemoglobin A1c Lab Routine Missed menses , unspecified gestational age ([facility]) Ordered: 05/15/2025 [facility] Comment on above: Ordered: 05/15/2025 Hepatitis B virus surface Ag [Presence] in Serum or Plasma by Immunoassay Hepatitis B surface antigen Lab Routine Missed menses , unspecified gestational age ([facility]) Ordered: 05/15/2025 [facility] Comment on above: Ordered: 05/15/2025 Hepatitis C virus Ab [Presence] in Serum or Plasma by Immunoassay Hepatitis C antibody Lab Routine Missed menses , unspecified gestational age ([facility]) Ordered: 05/15/2025 [facility] Comment on above: Ordered: 05/15/2025 HIV-1/HIV-2 antigen/antibody combination immunoassay HIV-1 and HIV-2 antibodies Lab Routine Missed menses , unspecified gestational age ([facility]) Ordered: 05/15/2025 [facility] Comment on above: Ordered: 05/15/2025 Patient Education Bipolar Disord er (DC) [facility] [place] Instructions [facility] Work Phone: Patient referral [facility] Work Phone: Progesterone Progesterone Lab Routine Female infertility PCOS (polycystic ovarian syndrome) Ordered: 03/23/2025 [facility] Comment on above: Ordered: 03/23/2025 Reagin Ab [Presence] in Serum by RPR RPR Lab Routine Missed menses , unspecified gestational age ([facility]) Ordered: 05/15/2025 [facility] Comment on above: Ordered: 05/15/2025 Rubella antibody, IgG Rubella an tibody, IgG Lab Routine Missed menses , unspecified gestational age ([facility]) Ordered: 05/15/2025 [facility] Comment on above: Ordered: 05/15/2025 US Pelvis transvaginal US OB tra nsvaginal Imaging Routine Missed menses Positive urine test ([facility]) 05/15/2025 10:06 AM EDT [facility] Immunizations Immunization Date Immunization Notes Care Provider Alexus stratton 07-27-2014 influenza virus vacc ine, unspecified formulation Marcio Posada NP Work Phone: [facility] Payers Date Payer Category Payer Medicaid (Managed Care) [facility] MEDICAID [id number] 2023 Self-pay [id number] 2017 Medicaid MEDICAID [facility] er [id number] 2002 Unknown [id number] [id number]. 593 2002 Unknown [id number] 2.16.840.1.794075.3.579.2. 593 2002 Unknown [id number] 2.16.840.1.166990.3.579.2. 593 2002 Unknown [id number] 2.16.840.1.303524.3.579.2. 593 2002 Unknown [id number] 2.16.840.1.609135.3.579.2. 1259 2002 Unknown [id number] 2.16.840.1.170585.3.579.2. 1259 2002 Unknown [id number] 2.16.840.1.738445.3.579.2. 1259 2002 Unknown [id number] 2.16.840.1.413481.3.579.2. 1259 2002 Unknown [id number] 2.16.840.1.837531.3.579.2. 1259 2002 Unknown [id number] 2.16.840.1.266395.3.579.2. 1259 2002 Unknown [id number] 2.16.840.1.645823.3.579.2. 1259 1959 Medicaid [id number] Unknown [id number] [id number]. 531 Social History Date Type Detail Facility Start: [facility]13-2022 [facility] Start: 2002 Sex Ass[facility] At [facility] [facility] Start: 04-05-2023 Tobacco smoking stat [facility] Never smoked tobacco [facility] [...] status Patient at Baseline [facility] Work Phone: Mental Status Date Assessment Result Facility 09-15-2022 Cognitive function Cognitive Sta tus Patient at Baseline [facility] Work Phone: Clinical Notes 09-13-2022 to 06-15-2025 Faye Lesley, CHANELLE - 06/15/2025 10:40 AM EDTMjimenezheather Dionicio, GEORGINA - 05/15/2025 10:00 AM Nan Cloud NP - 04/19/2025 9:30 AM REFUGIOJeramie [...] nursing note reviewed. Exam conducted with a web services architect present. Vitals: Estimated body mass index is 53 kg/m as calculated from the following: Height as of 03/23/25: 4' 11 . Weight as of this encounter: 262 lb 6.4 oz. BP: 118/70 Patient's last menstrual period was 03/21/2025. ASSESSMENT & PLAN ICD-10-CM 1. Second trimester ([facility]) Z34.92 POCT urinalysis dipstick manually resulted 2. First trimester ([facility]) Z34.91 POCT urinalysis dipstick manually resulted 3. 11 weeks gestation of ([facility]) Z3A.11 POCT urinalysis dipstick manually resulted [...] Cuong Diez DO documented in this encounter [facility] 05-15-2025 History of Presen t [...] urinalysis dipstick manually resulted Positive urine test ([facility]) - US OB transvaginal; Future Amenorrhea 7 weeks gestation of ([facility]) Bipolar affective disorder, remission status unspecified (HCC) Borderline personality disorder (HCC) , unspecified gestational age ([facility]) - Type and screen; Future - ABO/Rh; Future - CBC and differential - Hemoglobin A1c - RPR - Rubella antibody, IgG - Hepatitis B surface antigen - Hepatitis C antibody - HIV-1 and HIV-2 antibodies - Rapid drug screen, urine; Future Encounter for supervision of normal first in first trimester ([facility]) - Rapid drug screen, urine; Future Nurse Note: Pt desires [place] billion to one. Pt was advised she has to be 9 weeks gestation in order to have [place] drawn along w/ labs. PVU. Pt is [...] Beata Greenberg MA documented in this encounter [facility] 04-19-2025 History of Presen t [...] Additional Comments: Want blood labs sent to [facility] ROS: A complete system ROS was performed [...] PRN/gynecology if applicable. documented in this encounter [facility] 03-23-2025 History of Presen t [...] nursing note reviewed. Exam conducted with a web services architect present. Vitals: Estimated body mass index is [...] Cuong Diez DO documented in this encounter [facility] 09-09-2024 History of Presen t illness Narrative Images from the original note were not included. [address] , [address] [facility], [address] P: [phone] F: [phone] HPI Historian of HPI: patient Alexia Tristan [...] Left Turbinates: Enlarged and swollen. Mouth/Throat: Lips: Rarden. Mouth: Mucous membranes are moist. Pharynx: Oropharynx [...] capsule; Refill: 0 documented in this encounter [facility] 09-15-2022 Discharge summary Note Date/Time September 15, 2022 10:25am [facility] [address] [place] [address] Discharge Summary Signed Patient: Kay Busch MR#: [id number] : 2000 Acct:[id number] Age/Sex: 22 / F Adm Date: 2 Loc: Room: [address] [place] [address]: Param Rao MD Copies to: [...] restrictions. 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 (insert date/time [...] signed by Param Rao MD> 09/15/22 1037 [facility] Work Phone: 1(625) 228-129012-15-2022 Progress note Author Param Rao [facility] September 14, 2022 12:20pm Note Date/Time September 14, 2022 12:20pm [facility] [address] [place] [address] Psychiatry Progress Note Signed Patient: Kay Busch MR#: [id number] : 2000 Acct:[id number] Age/Sex: 22 / F Adm Date: 2 Loc: Room: [address] [place] [address] Type : ADM IN Attending Dr: Param [...] signed by Param Rao MD> 09/14/22 1220 [facility] Work Phone: 1(403) 619-426912-14-2022 History and physical note Author Param Rao [facility] September 13, 2022 12:48pm Note Date/Time September 13, 2022 12:48pm [facility] [address] [place] [address] Psychiatry H&P Signed Patient: Kay Busch MR#: [id number] : 2000 Acct:[id number] Age/Sex: 22 / F Adm Date: 2 Loc: Room: [address] [place] [address] Type: ADM IN Attending Dr: Param Rao [...] signed by Param Rao MD> 09/13/22 1248 [facility] Work Phone: Evaluation note* Diagnosis Onset Date Resolution Status Bipolar disorder acute [facility] Work Phone: Evaluation note* Diagnosis Acute cough- [...] note* Diagnosis Missed menses Positive urine test ([facility]) Amenorrhea Absence of menstruation 7 weeks gestation [...] instructions Additional Instructions Regular diet. No activity restrictions.[facility] Work Phone: Chief Complaint and Reason for [...] Helio Florian MD Primary Care Provider Active Salesperson Sewing Machines Relationship Specialty Start Date End Date Helio Folrian MD [address] [place] [address] PCP - General Family Medicine 04/05/23 Salesperson Sewing Machines Relationship Specialty Start Date End Date Helio Florian MD [address] [place] [address] PCP - General Family Medicine 04/05/23 Salesperson Sewing Machines Relationship Specialty Start Date End Date Helio Florian MD [address] [place] [address] PCP - General Family Medicine 04/05/23 Salesperson Sewing Machines Relationship Specialty Start Date End Date Helio Florian MD [address] [place] [address] [facility] 04/05/23 Salesperson Sewing Machines Relationship Specialty Start Date End Date Helio Florian MD [address] [place] [address] PCP - [facility] 04/05/23 Salesperson Sewing Machines Relationship Specialty Start Date End Date Helio Florian MD [address] [place] [address] PCP - [facility] 04/05/23 Marcio Posada NP [address] [place] [address] [facility] 12/30/2408/30 Salesperson Sewing Machines Relationship Specialty Start Date End Date Helio Florian MD [address] [place] [address] PCP - [facility] 04/05/23 Marcio Posada NP [address] [place] [address] PCP - [facility] 12/30/2408/30 Salesperson Sewing Machines Relationship Specialty Start Date End Date Helio Florian MD [address] [place] [address] PCP - [facility] 04/05/23 Marcio Posada NP [address] [place] [address] PCP - [facility] 12/30/2408/30 Salesperson Sewing Machines Relationship Specialty Start Date End Date Helio Florian MD [address] [place] [address] PCP - General Family Medicine 04/05/23 Marcio Posada NP [address] [place] [address] PCP - [facility] 12/30/2408/30 INFORMATION SOURCE (unrecogn ized section and content) DATE CREATED AUTHOR 09/21/2022 [facility] DATE CREATED AUTHOR AUTHOR'S ORGANIZ ATION 04/17/2025 [facility] DATE CREATED AUTHOR AUTHOR'S ORGANIZ ATION 06/16/2025 [facility] EPIC Reason for Visit (unrecogniz [...] BE BASED ON THE PRIMARY CLINICAL RECORDS. [employer] provides no warranty or guarantee of the accuracy or completeness of information in this document.
--- OUTSIDE RECORDS SUMMARY | 2025-07-13 21:09 | XMS_ITS | Encounter Summary ---
Author Organization [facility] Address [address] [place] [address] Care Team Providers Care Wedger Machine Name Role Phone Helio Campos MD Primary Care Provider [phone] Breana Loving HEALTH SOCIAL WORK PROFESSOR Unavailable [phone] Encounter Details Date Type Department Care Team (Late st Contact Info) Description 07/10/2025 Abstract [facility] [address] [place] [phone] Betsy Babcock, CHANELLE [address] [place] [address] Social History Tobacco Use Types Packs/Day Years [...] Description 08/18/2025 10:00 AM EST Ancillary Procedure [facility]A NIELSEN [address] [place] [address] 08/18/2025 11:10 AM EST Routine NOMOsiel NIELSEN [address] [place] [address] Chary, Cuong, [address] [place] [address] documented as of this encounter Visit Diagnoses Not on filedocumented in this encounter Care Teams Wedger Machine Relationship Specialty Start Date End Date Helio Campos MD [address] [place] [address] PCP - General Family Medicine 04/05/23 Breana Loving, RADHA [address] [place] [address] PCP - [facility] 12/30/2408/30 documented as of this encounter
--- OUTSIDE RECORDS SUMMARY | 2025-07-13 21:09 | XMS_ITS | Encounter Summary ---
Author Organization [facility] Address [address] [place] [address] Care Team Providers Care Spent Grain Dryer Name Role Phone Helio Campos MD Primary Care Provider [phone] Breana Loving BYPRODUCTS OPERATOR Unavailable [phone] Encounter Details Date Type Department Care Team (Late Contact Info) Description 06/12/2025 Abstract [facility]A NIELSEN [address] [place], [place] [address] [address] Cuong Diez DO [address] [place], [place] [address] Deanna Jaramillo, [facility]11 Social History Tobacco Use Types Packs/Day Years [...] 10:00 AM EST Ancillary Procedure LEA NIELSEN [facility] [place] [address] 08/18/2025 11:10 AM EST Routine LEA [address]ELSEN [address] [place] [address] Cuong Diez, [address] [place] [address] documented as of this encounter Visit Diagnoses Not on filedocumented in this encounter Care Teams Spent Grain Dryer Relationship Specialty Start Date End Date Helio Campos MD [address] [place] [address] PCP - General Family Medicine 04/05/23 Breana Loving NP [address] [place], [place] [phone] [facility] 12/30/2408/30 documented as of this encounter
--- OUTSIDE RECORDS SUMMARY | 2025-07-13 21:09 | XMS_ITS | Encounter Summary ---
Author Organization [facility] Address [address] [place] [address] Care Team Providers Care Steamboat Inspector Name Role Phone Helio Campos MD Primary Care Provider [phone] Breana Loving CARRIER WASHER Unavailable [phone] Encounter Details Date Type Department Care Team (Late Contact Info) Description 06/12/2025 Abstract LEA NIELSEN [address] [place], [place] [address] [address] Cuong Diez DO [address] [place], [place] [address] [place] [address] Deanna Jaramillo, [facility] Social History Tobacco Use Types Packs/Day Years [...] 10:00 AM EST Ancillary Procedure LEA NIELSEN [facility] [place] [address] 08/18/2025 11:10 AM EST Routine LEA [address]ELSEN [address] [place] [address] Cuong Diez, [address] [place] [address] documented as of this encounter Visit Diagnoses Not on filedocumented in this encounter Care Teams Steamboat Inspector Relationship Specialty Start Date End Date Helio Campos MD [address] [place] [address] PCP - General Family Medicine 04/05/23 Breana Loving NP [address] [place], [place] [address] [facility] 12/30/2408/30 documented as of this encounter
--- OUTSIDE RECORDS SUMMARY | 2025-07-13 21:09 | XMS_ITS | Encounter Summary ---
Author Organization [facility] Address [address] [place] [address] Care Team Providers Care Senior Asp Net Developer Name Role Phone Helio Campos MD Primary Care Provider Breana Loving BARTENDER Unavailable [phone] Encounter Details Date Type Department Care Team (Late Contact Info) Description 06/09/2025 Abstract LEA NIELSEN [address] [place], [place] [address] [address] Cuong Diez DO [address] Deanna [place], [facility]11 Social History Tobacco Use Types Packs/Day Years [...] 10:00 AM EST Ancillary Procedure LEA NIELSEN [place] [address] 08/18/2025 11:10 AM EST Routine LEA [address]ELSEN [address] [place] [address] Cuong Diez, [address] [place] [address] documented as of this encounter Visit Diagnoses Not on filedocumented in this encounter Care Teams Senior Asp Net Developer Relationship Specialty Start Date End Date Helio Campos MD [address] [place] [address] PCP - General Family Medicine 04/05/23 Breana Loving NP [address] [place], [place] [address] [facility] 12/30/2408/30 documented as of this encounter
--- OUTSIDE RECORDS SUMMARY | 2025-07-13 21:09 | XMS_ITS | Encounter Summary ---
Author Organization [facility] Address [address] [place] [address] Care Team Providers Care Food Service Coordinator Name Role Phone Helio Campos MD Primary Care Provider [phone] Breana Loving APERTURE MASK ETCHER Unavailable [phone] Encounter Details Date Type Department Care Team (Late Contact Info) Description 07/13/2025 Bamboo flowsheet LEA NIELSEN [facility] [place] [address] Betsy Tate PA [address] [place] [address] Dr [place], [place] [address] Social History Tobacco Use Types Packs/Day Years [...] 10:00 AM EST Ancillary Procedure LEA NIELSEN [facility] [place] [address] 08/18/2025 11:10 AM EST Routine NOMOsiel NIELSEN [facility] [place] [address] Cuong Diez, [address] [place] [address] documented as of this encounter Visit Diagnoses Not on filedocumented in this encounter Care Teams Food Service Coordinator Relationship Specialty Start Date End Date Helio Campos MD [address] [place] [address] PCP - General Family Medicine 04/05/23 Breana Loving NP [address] [place], [place] [address] PCP - [facility] 12/30/2408/30 documented as of this encounter
--- OUTSIDE RECORDS SUMMARY | 2025-07-13 21:09 | XMS_ITS | Clinical Summary ---
Author Organization [employer] Address [id number] [address] [place] [address] Care Team Providers Care Senior Administrative Services Officer Name Role Phone Helio Campos MD Primary Care Provider [phone] Allergies No known active allergies Medications testosterone [...] on file Insurance [place] [employer] Care Teams Senior Administrative Services Officer Relationship Specialty Start Date End Date Helio Campos MD PCP - General Family Medicine 04/04/23
--- OUTSIDE RECORDS SUMMARY | 2025-07-13 21:09 | XMS_ITS | Clinical Summary ---
Author Organization [facility] Address [address] [place] [address] Care Team Providers Care Rotary Swaging Machine Operator Name Role Phone Helio Campos MD Primary Care Provider [phone] Inder Breana N PLUMBING ASSEMBLER INSTALLER Unavailable [phone] Allergies No known active allergies Medications Zoloft 25 MG tablet Take 25 mg by mouth Daily 5 Active QUEtiapine (SEROquel) 25 MG tablet Take 50 mg by mouth at bedtime 5 Active nystatin (Mycostatin) 830041 UNIT/GM powderIndicatio ns:Tinea Apply topically in the morning and in the evening and before bedtime. 15 g 5 07/13/20 26 Active Active Problems Problem Noted Date Diagnosed Date Bipolar disorder 05/15/2025 Borderline personality disorder 05/15/2025 Estimated Date of Delivery Comme nts Yes 01/01/2026 Based on Ultraso und Encounters Date Type Department Care Team Description 07/13/2025 2:30 [place] [address] Betsy Tate PA Tinea (Primary Dx); Second trimester ([facility]); 15 weeks gestation of ([facility]); Well woman exam with routine gynecological exam; Exposure to STD; Need for maternal serum alpha-protein (MSAFP) screening ([facility]); Screening, , for anatomic survey ([facility]) 07/13/20[place] [address] Cuong Diez, DO 07/13/2025 Bamboo flowsheet [facility] [address] [place] [address] Betsy Tate PA 07/10/2025 Abstract [facility] [address] [place] [address] Betsy Babcock LPN 07/08/2025 Telephone [facility] [address] [place] [address] Beata Greenberg [place] 07/06/2025 Telephone [facility] [address] [place] [address] [place] [address] Beata [place]berg [place] 06/15/2025 10:40 AM EDT Routine [facility] [address] [place] [address] [place] [address] Cuong Diez, DO Second trimester ([facility]); First trimester ([facility]); 11 weeks gestation of ([facility]) 06/15/2025 Bamboo flowsheet [facility] [address] [place] [address] [place] [address] Cuong Diez, DO 06/12/2025 Abstract [facility] [address] [place] [address] [place] [address] Cuong Diez, DO 06/12/2025 Abstract [facility] [address] [place] [address] Cuong Diez, DO 06/09/2025 Abstract [facility] [address] [place] [address] [place] [address] Cuong Diez, DO 05/29/2025 Clinisync Result Encounter NOMS External Department Unsolicited Columba Temple NP 05/15/2025 10:00 AM EDT Initial [facility] [address] [place] [address] GA: 7w0d 05/15/2025 9:30 AM EDT Ancillary Procedure [facility] [address] [place] [address] Missed menses; Positive urine test ([facility]) 04/23/2025 Clinisync Result Encounter NOMS External Department Unsolicited Cuong Diez, DO 04/21/2025 Clinisync Result Encounter NOMS External Department Unsolicited Cuong Diez, DO 04/20/2025 Telephone [facility] [address] [place] [address] Beata Greenberg MA 04/19/2025 9:30 AM EDT Office Visit [facility] [address] [place] [address] Monty Lemons, DO Betsy Cloud NP Possible (Primary Dx); Amenorrhea 04/19/2025 Travel from Last 3 Months Family History [...] Pressure 116/72 07/13/2025 3:04 PM EDT Pulse 111 04/19/2025 9:36 AM EDT Temperature 37.1 C (98.7 F) 04/19/2025 9:36 AM EDT Respiratory Rate - - Oxygen Saturation 99% 04/19/2025 9:36 AM EDT Inhaled Oxygen Concentration - - Weight 121 kg (267 lb) 07/13/2025 3:04 PM EDT Height 149.9 cm (4' 11 ) 03/23/2025 9:02 AM EDT Body Mass Index 53.93 03/23/2025 9:02 AM EDT Plan of Treatment Upcoming Encounters Date Type Department Care Team (Late st Contact Info) Description 08/18/2025 10:00 AM EST Ancillary Procedure [facility] [address] [place] [address] 08/18/2025 11:10 AM EST Routine [facility] [address] [address] Cuong Diez, [address] [place] [address] [place] [address] Health Maintenance Due Date Last Done Comments Influenza Vaccine (#1) 2025 4, 06/13/2013, 07/25/2012, Additional history exists Procedures Procedure Name Priority Date/Time Associated Diagnosis Comments POCT URINALYSIS DIPSTICK Routine 07/13/2025 3:16 PM EDT Second trimester ([facility]) POCT URINALYSIS DIPSTICK Routine 06/15/2025 11:00 AM EDT Second trimester ([facility]) First trimester ([facility]) 11 weeks gestation of ([facility]) HBSAG SCREEN Routine 05/29/2025 1:30 PM EDT [...] AM EDT Missed menses Positive urine test ([facility]) [facility] PREG QUANT HCG Routine 04/23/2025 10 :09 AM EDT [facility] PREG QUANT HCG Routine 04/21/2025 10 :18 AM EDT POCT , URINE Routine 04/19/2025 9:52 AM EDT Possible from Last 3 Months Results * POCT urinalysis dipstick manually resulted (07/13/2025 3:16 PM EDT) Only the most recent of3 resultswithin the time period is included. Color, UA Yellow Clarity, UA Clear Glucose, [...] * BOX TEST (05/29/2025 1:30 PM EDT) Pathologist [facility] BOX TEST SENT OUT [facility] BOX1 [facility] BOX2 05/29/25 [facility] 05/29/2025 1:30 PM EDT 05/29/2025 1:38 PM EDT Narrative CLINISYNC - 05/29/2025 1:47 PM EDT Columba Temple PLUMBING ASSEMBLER INSTALLER LAB BLOOD ORDERABLES Final [facility]ult [facility] * HBSAG SCREEN (05/29/2025 1:30 PM EDT) HBSAG SCREEN Negative Negative [facility] Comment: Performed at: [facility] Lab[address] [id number] Cleaner And Trimmer: Ilya Manjarrez PhD, Phone: [phone] 05/29/2025 1:30 PM EDT 05/29/2025 1:38 PM EDT Narrative CLIN[facility] - 05/30/2025 12:08 PM EDT us Cuong Chary DO LAB BLOOD ORDERABLES Final Resul t Performing Organization Address City/[facility]/ZIP Co de Phone Number [facility] * RAPID PLASMA REAGIN, QUANT (05/29/2025 1:30 PM EDT) Pathologist [facility] RAPID PLASMA REAGIN, QUANT Non Reactive NonRea<1: 1 titer [facility] Comment: Please Note: This test does not meet current guidelines for screening and diagnosis of syphilis. This test is intended for following treatment response in patients being treated for syphilis infection. To screen for syphilis infection, a reflex cascade that includes both RPR and a treponema-specific assay should be utilized, such as Treponema pallidum (Syphilis) Screening [place] (715244) or Rapid Plasma Reagin (RPR) Test With Reflex to Quantitative RPR and Confirmatory Treponema pallidum Antibodies ([id number]). Performed at: [facility] [id number] Cleaner And Trimmer: Ilya Manjarrez PhD, Phone: [phone] 05/29/2025 1:30 PM EDT 05/29/2025 1:38 PM EDT Narrative CLINISYSC - 05/30/2025 12:08 PM EDT [employer] LAB BLOOD ORDERABLES Final Resul t Performing Organization Address [facility] Co de Phone Number [facility] * HIV AB/P24 AG WITH REFLEX (05/29/2025 1:30 PM EDT) [facility] HIV AB/P24 AG SCREEN Non Reactive Non Reactive [facility] Comment: HIV-1/HIV-2 antibodies and HIV-1 p24 antigen were NOT detected. There is no laboratory evidence of HIV infection. HIV Negative Performed at: [facility] [id number] Cleaner And Trimmer: Ilya Manjarrez PhD, Phone: [phone] 05/29/2025 1:30 PM EDT 05/29/2025 1:38 PM EDT Narrative CLINISYNC - 05/30/2025 4:07 AM EDT Cuong Chary DO LAB BLOOD ORDERABLES Final Resul t [facility] * HCV ANTIBODY RFX TO QUANT PCR (05/29/2025 1:30 PM EDT) [facility] HCV AB Non Reactive Non Reactive [facility] INTERPRETATION: Comment . [facility] Comment: Not infected with HCV unless early or acute infection is suspected (which may be delayed in an immunocompromised individual), or other evidence exists to indicate HCV infection. Performed at: [facility] [address] [id number] Cleaner And Trimmer: Ilya Manjarrez PhD, Phone: [phone] 05/29/2025 1:30 PM EDT 05/29/2025 1:38 PM EDT Narrative CLINISYNC - 05/30/2025 7:09 AM EDT [employer] DO LAB BLOOD ORDERABLES Final Resul t Performing Organization Address [facility] Co de Phone Number [facility] * MLR HEMOGLOBIN A1C (05/29/2025 1:30 PM EDT) [facility] GLYCOHEMOGLOBIN A1C 4.9 4.5 - 6.2 % [facility] Comment: ADA RECOMMENDED LIMIT 4.0 - 6.0 ADA THERAPEUTIC TARGET < 7.0 ACTION SUGGESTED > 7.0 ESTIMATED AVERAGE GLUCOSE 94 mg/dL [facility] 05/29/2025 1:30 PM EDT 05/29/2025 1:38 PM EDT Narrative CLINISYNC - 05/29/2025 2:52 PM EDT Cuong Chary DO CLINISYNC Final Result Performing Organization Address City/[facility] Co de Phone Number [facility] * HMHP ANTIBODY ID (05/29/2025 1:30 PM EDT) [facility] ANTIBODY ID PANEL D RHIG [facility] Comment: PROBABLE ANTI-D DUE TO RHIG ADMINISTRATION ON 05/14/25. FURTHER WORKUP AT [employer] REQUEST. 05/29/2025 1:30 PM EDT 05/29/2025 1:38 PM EDT [facility] - 05/29/2025 2:38 PM EDT [facility] , us Cuong Chary DO CLINISYNC Final Result [facility] * ALL TYPE AND SCREEN (05/29/2025 1:30 PM EDT) BLOOD TYPE B Negative [facility] ANTIBODY SCREEN POSITIVE TB 05/29/2025 1:30 PM EDT 05/29/2025 1:38 PM EDT [facility] - 05/29/2025 2:38 PM EDT [facility] , us Cuong Chary DO CLINISYNC Final Result Performing Organization Address City/[facility]/ZIP Co de Phone Number [facility] * ALL RUBELLA IGG AB (05/29/2025 1:30 PM EDT) RUBELLA ANTIBODIES, IGG 1.03 Immune >0.99 index TB Comment: Non-immune <0.90 Equivocal 0.90 - 0.99 Immune >0.99 Performed at: [address] [id number] Cleaner And Trimmer: Ilya Manjarrez PhD, Phone: [phone] 05/29/2025 1:30 PM EDT 05/29/2025 1:38 PM EDT Narrative CLINISYSC - 05/30/2025 7:09 AM EDT us Cuong Chary DO CLINISYNC Final Result Performing Organization Address City/[facility]/ZIP Co de Phone Number [facility] * (ABNORMAL) ALL CBC WITH AUTO DIFF (05/29/2025 1:30 PM EDT) Pathologist [facility] WBC 11.3(H) 4.0 - 11.0 10 3/uL [...] Narrative CLINISYNC - 05/29/2025 1:54 PM EDT us Cuong Diez DO CLINISYNC Final Result [facility] * (ABNORMAL) TB DRUG SCREEN [...] PM EDT 05/29/2025 1:38 PM EDT Narrative CLINISYSC - 05/29/2025 2:02 PM EDT us Cuong Chary DO CLINISYNC Final Result Performing Organization Address City/[facility]/ZIP Co de Phone Number [facility] * CANNABINOID CONF, MS, UR (05/29/2025 12:58 PM EDT) CANNABINOID POSITIVE TB CARBOXY THC CONF, MS, UR >750 ng/mL [facility] Comment:Cutoff = 10 05/29/2025 12:5 8 PM EDT 05/29/2025 2:04 PM EDT Narrative CLINISYNC - 06/04/2025 3:45 PM EDT Cuong Chary DO LAB BLOOD ORDERABLES Final Resul t [facility] * ALL MISCELLANEOUS TEST (05/29/2025 12:58 PM EDT) MISCELLANEOUS TEST COMMENT . [facility] Comment: Test Ordered: [id number] Tricyclic Antidepressant Conf Tricyclic Antidep Negative ng/mL UI Reference Range: [id number] Confirmation performed by Mass Spectrometry Please Note: Comment UI Reference Range: . Drug test results should be interpreted in the context of clinical information. Patient metabolic variables, specific drug chemistry, and specimen characteristics can affect test outcome. Technical consultation is available if a test result is inconsistent with an expected outcome. Email: [email or web address] Performed at: [facility] [address] [place], [place] [id number] Cleaner And Trimmer: Ijeoma Lino PhD, Phone: [phone] Performed at: [facility] [address] [id number] Cleaner And Trimmer: Ilya Manjarrez PhD, Phone: [phone] 05/29/2025 12:5 8 PM EDT 05/29/2025 2:05 PM EDT Narrative CLINISYNC - 06/03/2025 5:08 AM EDT [id number] Tricyclic Antidepressants Confirmation, Urine Cuong Chary DO CLINISYNC Final Result Performing Organization Address City/State/[facility] Co de Phone Number CLINISYNC [facility] * (ABNORMAL) POCT , urine manually resulted [...] Hunter Huffman MD us Cuong Diez DO [facility] OB US PROCEDURES Final Resul t * [...] CLINISYNC - 04/23/2025 11:21 AM EDT Cuong Vaughanzio DO CLINISYNC Final Result [facility]INIS[facility]NC [facility] from Last 3 Months Insurance [employer] Care Teams Rotary Swaging Machine Operator Relationship Specialty Start Date End Date Helio Campos MD [address] [place] [address] PCP - General Family Medicine 04/05/23 Breana Loving NP [address] [place] [address] PCP - [facility] 12/30/2408/30
--- OUTSIDE RECORDS SUMMARY | 2025-07-13 21:10 | XMS_ITS ---
Author Organization [facility] Address [address] [place] [address] Care Team Providers Care Block Sealer Name Role Phone Helio Campos MD Primary Care Provider [phone] Breana Loving SUPPLY CHAIN PLANNER Unavailable [phone] [facility] Status:Identified (Enrolling) Start date:07/10/2025 Enrollment reason:Identified by Health Plan Case Team Name Relationship Phone Betsy Babcock LPN(Responsible Staff) [facility] [phone] Continued Care and Services Coordination
--- OUTSIDE RECORDS SUMMARY | 2025-07-13 21:10 | XMS_ITS | Encounter Summary ---
Author Organization [facility] Address [address] [place] [address] Care Team Providers Care Project Administrative Assistant Name Role Phone Helio Campos MD Primary Care Provider [phone] Breana Loving PEDIATRIC PHYSICIAN ASSISTANT Unavailable [phone] Encounter Details Date Type Department Care Team (Late st Contact Info) Description 07/08/2025 Telephone [facility] [address] [place] [phone] Eileen GreenbergEdg[place], [place] [address] [place] [address] Social History Tobacco Use Types Packs/Day Years [...] on file documented as of this encounter Miscellaneous Notes * Telephone Encounter - Izabela Wodo LPN - 07/13/2025 3:06 PM EDT Reviewed fax that Columba wanted him to review in regards to medication and he states that patient is able to take the Hydoxyzine and [facility] was not able to answer her phone. * Telephone Encounter - Beata Greenberg MA - 07/08/2025 1:27 PM EDT Received a fax sent into our office on 07/07/[address] Jazmin Moore over the medication Hydroxyzine. On 07/06/2025 the doctors ALEXANDER Boyce called our office left message asking if our doctor would allow the patient to use Hydroxyzine for her severe anxiety. Pt being the doctor wanted to know if our physician would be ok to prescribe the medication. I spoke w/Columba Temple NP on over this matter and Columba said the medication is a Catagory C medicine and would rather thePsychiatrist prescribe Celexa for her anxiety. Celexa is the medication prescribed for all our mothers dealing w/anxiety. I called the office back yesterday and ALEXANDER Boyce was unable to answer the call. I left the detailed message from above on her voicemail and to please call our office w/any questions. ALEXANDER Boyce did not call back. Today, the fax is asking if our doctor is ok w/pt being put on Hydroxyzine PRN. Columba wants the note placed on Dr. Diez's desk to see on Sunday and see what he would like to do. documented in this encounter Plan of Treatment Upcoming Encounters Date Type Department Care Team (Late st Contact Info) Description 08/18/2025 10:00 AM EST Ancillary Procedure [facility] [address] [place] [address] 08/18/2025 11:10 AM EST Routine [facility] [address] [place] [address] Cuong Diez DO [address] [place] [address] documented as of this encounter Visit Diagnoses Not on filedocumented in this encounter Care Teams Project Administrative Assistant Relationship Specialty Start Date End Date Helio Campos MD [address] [place] [address] PCP - General Family Medicine 04/05/23 Breana Loving NP [address] [place] [address] PCP - [facility] 12/30/2408/30 documented as of this encounter
--- OUTSIDE RECORDS SUMMARY | 2025-07-13 21:10 | XMS_ITS | Encounter Summary ---
Author Organization [facility] Address [address] [place] [address] Care Team Providers Care Business Computers Teacher Name Role Phone Helio Campos MD Primary Care Provider [phone] Breana Loving STRATEGY DIRECTOR Unavailable [phone] Encounter Details Date Type Department Care Team (Late st Contact Info) Description 07/06/2025 Telephone [facility] [address] [phone] Beata Greenberg MA [address] [place] [address] Social History Tobacco Use Types Packs/Day Years [...] encounter Miscellaneous Notes * Telephone Encounter - Beata Greenberg MA - 07/06/2025 11:57 AM EDT RN Carli from Dr. Jazmin Wells office called. She wanted to know if Dr. Diez would be ok with thepatient prescribed hydroxyzine for her anxiety? I advised the nurse that I would have to ask our NPssheela Diez is out of the office and I would call her back. I spoke w/STRATEGY DIRECTOR Columba Temple about the above conversation. I called nurse Carli's extension however, she did not answer my call so, I left a detailed message: STRATEGY DIRECTOR Emi Temple said the medication Hydroxyzine is considered a Category C medication accordingto ACOG. And the medication has shown that it can cross through the placenta while taking the medication. The Psychiatrist would have to out weight the risks while prescribing this medication for thepatient. RADHA Waterman suggested that Celexa be the medication to have patient prescribed since its safer and is the medication we always prescribe our patient suffering from Anxiety/Depression. To please call our office if the doctor has any other questions/concerns. documented in this encounter Plan of Treatment Upcoming Encounters Date Type Department Care Team (Late st Contact Info) Description 08/18/2025 10:00 AM EST Ancillary Procedure [facility] [address] [address] 08/18/2025 11:10 AM EST Routine [facility] [address] [place] [address] Cuong Diez DO [address] [facility] [place] [address] documented as of this encounter Visit Diagnoses Not on filedocumented in this encounter Care Teams Business Computers Teacher Relationship Specialty Start Date End Date Helio Campos MD [address] [place] [address] PCP - General Family Medicine 04/05/23 Breana Loving NP [address] [place] [address] PCP - [facility] 12/30/2408/30 documented as of this encounter
--- OUTSIDE RECORDS SUMMARY | 2025-07-13 21:10 | XMS_ITS | Patient Health Record ---
Author Organization The [facility] in [place] Address [address] [place] [address] Care Team Providers Care Attorney Lawyer Name Role Phone DeoAnnamariaCarole Primary Care Provider Allergies No Known Allergies Results Component Value Reference Range Notes AMYLASE Reviewed date:08/31/2024 07:27:27 PM Interpretation: Performing Lab: Notes/Report: [facility] , Amylase 97 25-115 U/L Performing Lab: see note ML - [facility] LB CBC AUTO DIFF Reviewed date:08/31/2024 07:27:27 PM Interpretation: Performing Lab: Notes/Report: [facility] , White Blood Count 12.2 4.0-11.0 10 [...] 3/uL Performing Lab: see note ML - [facility] LB LIPASE Reviewed date:08/31/2024 07:27:27 PM Interpretation: Performing Lab: Notes/Report: [facility] , Lipase 50.0 16.0-77.0 U/L Performing Lab: see note ML - [facility] LB LIVER PROFILE Reviewed date:08/31/2024 07:27:27 PM Interpretation: Performing Lab: Notes/Report: [facility] , Bilirubin Total 0.4 0.2-1.0 mg/dL Bilirubin Direct 0.1 0.0-0.2 mg/dL Aspartate Amino Transferase 14 15-37 U/L Alanine Aminotransferase 27 14-59 U/L Alkaline Phosphatase 92 46-116 U/L Total Protein 7.5 6.4-8.2 g/dL Albumin Level 3.5 3.4-5.0 g/dL Globulin 4.0 Albumin Globulin Ratio 0.9 Performing Lab: see note ML - [facility] LB PROF CHEM 8 (BAS METB) Reviewed date:08/31/2024 07:27:27 PM Interpretation: Performing Lab: Notes/Report: [facility] , Sodium 141 136-145 mmol/L Potassium 4.0 [...] 8.5-10.1 mg/dL Performing Lab: see note - [facility] UA RANDOM W or MICROSCOPIC Reviewed date:08/31/2024 07:27:27 PM Interpretation: Performing Lab: Notes/Report: [facility] , Color Urine LT. YELLOW YELLOW Clarity Urine CLEAR CLEAR Specific [place] Urine 1.015 1.005-1.025 pH Urine 7.0 5.0-9.0 [...] Indicated NO Performing Lab: see note - [facility] LB HCG Qualitative* Reviewed date:08/31/2024 07:27:27 PM Interpretation: Performing Lab: Notes/Report: [facility] , HCG Qualitative NEGATIVE NEGATIVE Performing Lab: see note - [facility] LB XR abdomen 1V Reviewed date:08/31/2024 07:27:27 PM Interpretation: Performing Lab: Notes/Report: Source Facility: [place] [address] [place] [address] XRay Report Signed Patient: KASH TRISTAN MR#: [id number] : 2000 Acct:[id number] Age/Sex: 24 / F ADM Date: 08/31/24 Loc: ER Attending Dr: Ordering Physician: Hari Hutton M.D. Date of Service: 08/31/24 Procedure(s): XR abdomen 1V Accession Number(s): [id number] cc: Jordan Love M.D.; Hari Hutton M.D. The [place] [address] Patient Name: KASH TRISTAN MRN: [facility]:[id number] date: 2000 Sex: F Assigned Patient Location: ER Current Patient Location: ER Accession/Order Number: [id number] Exam Date: 08/31/2024 14:05 Report Date: 08/31/2024 [...] Signed By: 08/31/24 1543 DD/ 1541 TD/TT: Iron Piler: FREE T4 Reviewed date:03/24/2025 02:44:38 PM Interpretation: Performing Lab: Notes/Report: [facility] , Free T4 1.19 0.76-1.46 ng/dL Performing Lab: see note ML - [facility] LB GLYCOHEMOGLOBIN A1C Reviewed date:03/24/2025 02:44:38 PM Interpretation: Performing Lab: Notes/Report: [facility] , Glycohemoglobin A1C 5.3 4.5-6.2 % ACTION SUGGESTED > 7.0 ADA RECOMMENDED LIMIT 4.0 - 6.0 ADA THERAPEUTIC TARGET < 7.0 Estimated Average Glucose 105 Performing Lab: see note ML - [facility] LB DHEA, Serum Reviewed date:03/29/2025 01:16:45 PM Interpretation: Performing Lab: Notes/Report: [facility] , DHEA, Serum 279 31-701 ng/dL [address] [place], [place] [id number] Performed at: [facility] determined by [facility]. It has not been cleared or approved by the Food and Drug Administration. Noodle Press Operator: Tiara Merchant MD, Phone: [phone] This test was developed and its performance characteristics Performing Lab: see note [facility] Anti-Mullerian Hormone (AMH) Reviewed date:03/29/2025 01:16:45 PM Interpretation: Performing Lab: Notes/Report: [facility] , Anti-Mullerian Hormone (AMH) 0.939 . ng/mL AMH concentrations of >= 1.06 ng/mL is correlated with a polycystic ovarian syndrome (PCOS) may exhibit elevated with other tumor markers. Elevated AMH is not specific for interval values. 1.Jayant George Interferences in Immunoassays - still a threat. may be 2 to 5 fold higher than age-appropriate reference For assays employing antibodies, the possibility exists for serum AMH concentrations. AMH levels from PCOS patients Performed at: [employer] the study method with a slope of 0.94. Reference Range: determined by [facility]. It has not been cleared or approved Noodle Press Operator: Rogelio Salmon MD, Phone: [phone] Females 20 - 25y: 1.23 - 11.[address] [place] [phone] Clin. Chem. 2000; 46: 1966-6697. malignancy, and the assay should not be used exclusively to This test was developed and its performance characteristics to Cristal et al. Fertility and Sterility. 2010: Females at risk of ovarian hyperstimulation syndrome or by the Food and Drug Administration. Median 4.70 retrievable oocytes and higher odds of live according 94:2258-7478. The current AMH test method correlates with diagnose or exclude an AMH-secreting ovarian tumor. interference by heterophile antibodies in the samples.1 Granulosa cell tumors of the ovary may secrete AMH along better response to ovarian stimulation, produced more Performing Lab: see note [facility] LB Progesterone Reviewed date:04/13/2025 08:29:18 AM Interpretation: Performing Lab: Notes/Report: [facility] , Progesterone 9.5 . ng/mL Luteal phase 1.8 - 23.9 Noodle Press Operator: Ilya Manjarrez PhD, Phone: [phone] First trimester 11.0 - 44.3 Postmenopausal 0.0 - 0.1 Third trimester 58.7 - 214.0 [address] [place], [place] [id number] Follicular phase 0.1 - 0.9 Performed at: [facility] Second trimester 25.4 - 83.3 Ovulation phase 0.1 - 12.0 Performing Lab: see note LC - [facility] LB PREG QUANT HCG Reviewed date:04/21/2025 10:56:49 AM Interpretation: Performing Lab: Notes/Report: [facility] , HCG Quantitative 97 10,000-100,000 5-6 WEEKS 10,000-100,000 2-3 MONTHS 5-50 0.2-1 WEEK 100-5,000 2-3 WEEKS 1,000-50,000 4-5 WEEKS 500-10,000 3-4 WEEKS 50-500 1-2 WEEKS 15,000-200,000 6-8 WEEKS Performing Lab: see note ML - [facility] LB PREG QUANT HCG Reviewed date:04/23/2025 12:33:44 PM Interpretation: Performing Lab: Notes/Report: [facility] , HCG Quantitative 275 50-500 1-2 WEEKS 5-50 0.2-1 WEEK 100-5,000 2-3 WEEKS 500-10,000 3-4 WEEKS 1,000-50,000 4-5 WEEKS 10,000-100,000 5-6 WEEKS 15,000-200,000 6-8 WEEKS 10,000-100,000 2-3 MONTHS Performing Lab: see note ML - [facility] LB CBC AUTO DIFF Reviewed date:05/15/2025 09:29:49 AM Interpretation: Performing Lab: Notes/Report: [facility] , White Blood Count 15.3 4.0-11.0 10 [...] Performing Lab: see note ML - [facility] LB PREG QUANT HCG Reviewed date:05/15/2025 09:29:49 AM Interpretation: Performing Lab: Notes/Report: [facility] , HCG Quantitative 30989 1,000-50,000 4-5 WEEKS 50-500 1-2 WEEKS 10,000-100,000 2-3 MONTHS 10,000-100,000 5-6 WEEKS 100-5,000 2-3 WEEKS 15,000-200,000 6-8 WEEKS 500-10,000 3-4 WEEKS 5-50 0.2-1 WEEK Performing Lab: see note ML - [facility] LB PROF 14(COMP METB) Reviewed date:05/15/2025 09:29:49 AM Interpretation: Performing Lab: Notes/Report: [facility] , Sodium 135 136-145 mmol/L Potassium 3.4 [...] 0.8 Performing Lab: see note ML - [facility] LB UA RANDOM W or MICROSCOPIC Reviewed date:05/15/2025 09:29:49 AM Interpretation: Performing Lab: Notes/Report: [facility] , Color Urine LT. YELLOW YELLOW Clarity Urine CLEAR CLEAR Specific [place] Urine 1.020 1.005-1.025 pH Urine 6.5 5.0-9.0 [...] NO Performing Lab: see note ML - [facility] LB Type and Screen Reviewed date:05/15/2025 09:29:49 AM Interpretation: Performing Lab: Notes/Report: [facility] , Blood Type B Negative Antibody Screen NEGATIVE ANTIBODY ID PANEL Reviewed date:05/29/2025 02:51:20 PM Interpretation: Performing Lab: Notes/Report: [facility] , Antibody Identification D RHIG PROBABLE ANTI-D DUE TO RHIG ADMINISTRATION ON 05/14/25. FURTHER WORKUP AT [employer] REQUEST. CBC AUTO DIFF Reviewed date:05/29/2025 02:19:28 PM Interpretation: Performing Lab: Notes/Report: [facility] , White Blood Count 11.3 4.0-11.0 10 [...] 3/uL Performing Lab: see note ML - [facility] GLYCOHEMOGLOBIN A1C Reviewed date:05/29/2025 03:30:16 PM Interpretation: Performing Lab: Notes/Report: [facility] , Glycohemoglobin A1C 4.9 4.5-6.2 % ACTION SUGGESTED > 7.0 ADA RECOMMENDED LIMIT 4.0 - 6.0 ADA THERAPEUTIC TARGET < 7.0 Estimated Average Glucose 94 Performing Lab: see note ML - [facility] LB LAB TESTING Reviewed date:06/03/2025 09:27:38 AM Interpretation: Performing Lab: Notes/Report: [id number] Tricyclic Antidepressants Confirmation, Urine [facility] , Miscellaneous Test COMMENT . Reference Range: . Performed at: - [facility] [place] Test Ordered: [id number] Tricyclic Antidepressant Conf Email: [email or web address] Drug test results should be interpreted in the context of clinical Confirmation performed by Mass Spectrometry Please Note: Comment UI consultation is available if a test result is inconsistent with an Noodle Press Operator: Ijeoma Lino PhD, Phone: [phone] expected outcome. Tricyclic Antidep Negative ng/mL Noodle Press Operator: Ilya Manjarrez PhD, Phone: [phone] [address] [place], [place] [phone] Performed at: - [facility] OTS RTP specimen characteristics can affect test outcome. Technical information. Patient metabolic variables, specific drug chemistry, and Reference Range: Aoyfcs=229 1904 [address] [facility] [place] [phone] Performing Lab: see note - [facility] LB MAGNESIUM Reviewed date:06/02/2025 11:12:43 AM Interpretation: Performing Lab: Notes/Report: [facility] , Magnesium 1.5 1.8-2.4 mg/dL Performing Lab: see note [facility] LB PROF 14(COMP METB) Reviewed date:06/02/2025 11:12:43 AM Interpretation: Performing Lab: Notes/Report: [facility] , Sodium 138 136-145 mmol/L Potassium 3.3 [...] Ratio 0.9 Performing Lab: see note - [facility] LB RUBELLA AB IGG Reviewed date:06/02/2025 11:12:43 AM Interpretation: Performing Lab: Notes/Report: [facility] , Rubella Antibodies, IgG 1.03 Immune > 0.99 index Non-immune <0.90 Performed at: [facility] Immune >0.99 Noodle Press Operator: Ilya Manjarrez PhD, Phone: [phone] Equivocal 0.90 - 0.[address] [place] [phone] Performing Lab: see note [facility] LB Type and Screen Reviewed date:05/29/2025 02:51:20 PM Interpretation: Performing Lab: Notes/Report: [facility] , Blood Type B Negative Antibody Screen POSITIVE HIV Ab/p24 Ag with Reflex Reviewed date:06/02/2025 11:12:43 AM Interpretation: Performing Lab: Notes/Report: [facility] , HIV Ab/p24 Ag Screen Non Reactive Non Reactive [address] [place] [phone] detected. There is no laboratory evidence of HIV infection. HIV Negative Noodle Press Operator: Ilya Manjarrez PhD, Phone: [phone] HIV-1/HIV-2 antibodies and HIV-1 p24 antigen were NOT Performed at: [facility] Performing Lab: see note [facility] Rapid Plasma Reagin, Quant Reviewed date:06/02/2025 11:12:43 AM Interpretation: Performing Lab: Notes/Report: [facility] , Rapid Plasma Reagin, Quant Non Reactive NonRea<1:1 titer Treponema pallidum (Syphilis) Screening [place] (927573) or intended for following treatment response in patients being treated for syphilis infection. To screen for syphilis RPR and Confirmatory Treponema pallidum Antibodies (442956). infection, a reflex cascade that includes both RPR and a Performed at: [facility] screening and diagnosis of syphilis. This test is treponema-specific assay should be utilized, such as [address] [place] [phone] Noodle Press Operator: Ilya Manjarrez PhD, Phone: [phone] Rapid Plasma Reagin (RPR) Test With Reflex to Quantitative Please Note: This test does not meet current guidelines for Performing Lab: see note [facility] LB HCV Antibody RFX to Quant PC R Reviewed date:06/02/2025 11:12:43 AM Interpretation: Performing Lab: Notes/Report: [facility] , HCV Ab Non Reactive Non Reactive Interpretation: Comment . suspected (which may be delayed in an immunocompromised Performed at: [facility] Noodle Press Operator: Ilya Manjarrez PhD, Phone: [phone] Not infected with HCV unless early or acute infection is infection. individual), or other evidence exists to indicate HCV [address] [place] [phone] Performing Lab: see note - [facility] LB HBsAg Screen Reviewed date:06/02/2025 11:12:43 AM Interpretation: Performing Lab: Notes/Report: [facility] , HBsAg Screen Negative Negative Noodle Press Operator: Ilya Manjarrez PhD, Phone: [phone] [address] [place] [phone] Performed at: [facility] Performing Lab: see note [facility] LB Urine Culture, Routine Reviewed date:06/02/2025 11:12:43 AM Interpretation: Performing Lab: Notes/Report: [facility] , Urine Culture, Routine See Below For Report Urine Culture, Routine Urine Culture, Routine Mixed urogenital dean Urine Culture, Routine Urine Culture, Routine 50,000-100,000 colony forming units per mL Urine Culture, Routine Urine Culture, Routine Performed at: [facility] Urine Culture, Routine Urine Culture, Routine [address] [place] [address] [phone] Urine Culture, Routine Urine Culture, Routine Noodle Press Operator: Ilya Manjarrez PhD, Phone: [phone] Urine Culture, Routine Performing Lab: see note - [facility] LB SEE REPORT - Mechanical Field Engineer Id information not found for OBX-specific concrete mixer operator legend Cannabinoid Conf, MS, UR Reviewed date:06/04/2025 04:05:51 PM Interpretation: Performing Lab: Notes/Report: [facility] , Cannabinoid POSITIVE Carboxy THC Conf, MS, UR >750 ng/mL Cut off = 10 Performing Lab: see note - [facility] LB UA Micro, reflex to culture Reviewed date:06/02/2025 11:12:43 AM Interpretation: Performing Lab: Notes/Report: [facility] , Color Urine LT. YELLOW YELLOW Clarity Urine SL CLOUDY CLEAR Specific [place] Urine 1.010 1.005-1.025 pH Urine 6.5 5.0-9.0 [...] Performing Lab: see note ML - [facility] LB Wayne Box Reviewed date:05/29/2025 02:19:29 PM Interpretation: Performing Lab: Notes/Report: [facility] , BOX Test Sent Out [employer] BOX Test Reference Lab unity BOX Test Date Sent 05/29/25 Performing Lab: see note - [facility] LB CBC AUTO DIFF Reviewed date:06/02/2025 11:12:43 AM Interpretation: Performing Lab: Notes/Report: [facility] , White Blood Count 14.0 4.0-11.0 10 [...] 3/uL Performing Lab: see note ML - [facility] LB CBC AUTO DIFF Reviewed date:07/06/2025 09:22:39 AM Interpretation: Performing Lab: Notes/Report: [facility] , White Blood Count 13.4 4.0-11.0 10 3/uL Red Blood Count 4.47 4.20-5.40 10 6/uL Hemoglobin 13.5 12.0-16.0 g/dL Hematocrit 38.0 36.0-48.0 % Mean Corpuscular Volume 85.0 81.0-99.0 fL Mean Corpuscular Hemoglobin 30.2 26.7-34.0 pg Mean Corpuscular HGB Conc 35.5 29.9-35.2 g/dL Red Cell Distribution Width 12.5 11.0-15.0 % Platelet Count 286 150-450 10 3/uL Mean Platelet Volume 8.8 9.5-13.5 fL Neutrophils Percent Auto 75.1 43.0-75.0 % Lymphocytes Percent Auto 17.8 20.5-60.0 % Monocytes Percent Auto 5.4 1.7-12.0 % Eosinophils Percent Auto 0.7 0.9-7.0 % Basophils Percent Auto 0.3 0.2-2.0 % Immature Granulocytes Pct Auto 0.7 0.0-0.5 % Neutrophils Absolute Auto 10.1 1.4-6.5 10 3/uL Lymphocytes Absolute Auto 2.4 1.2-3.8 10 3/uL Monocytes Absolute Auto 0.7 0.3-0.8 10 3/uL Eosinophils Absolute Auto 0.1 0.0-0.7 10 3/uL Basophils Absolute Auto 0.0 0.0-0.1 10 3/uL Immature Granulocytes Abs Auto 0.10 0.00-0.03 10 3/uL Performing Lab: see note ML - [facility] LB FREE T4 Reviewed date:07/06/2025 09:22:39 AM Interpretation: Performing Lab: Notes/Report: [facility] , Free T4 1.14 0.76-1.46 ng/dL Performing Lab: see note ML - [facility] LB MAGNESIUM Reviewed date:07/06/2025 09:22:39 AM Interpretation: Performing Lab: Notes/Report: [facility] , Magnesium 1.8 1.8-2.4 mg/dL Performing Lab: see note - [facility] LB PROF 14(COMP METB) Reviewed date:07/06/2025 09:22:39 AM Interpretation: Performing Lab: Notes/Report: [facility] , Sodium 137 136-145 mmol/L Potassium 3.5 3.5-5.1 mmol/L Chloride 102 98-107 mmol/L Carbon Dioxide 20.9 21.0-32.0 mmol/L Anion Gap 17.6 Glucose 94 74-106 mg/dL Blood Urea Nitrogen 7.0 7.0-18.0 mg/dL Creatinine 0.60 0.55-1.02 mg/dL Estimated GFR ( Peyton >60 >=60 mL/min/1.73m 2 Estimated GFR (Non- Reyna >60 >=60 mL/min/1.73m 2 BUN Creatinine Ratio 11.7 Calcium 9.6 8.5-10.1 mg/dL Bilirubin Total 0.5 0.2-1.0 mg/dL Aspartate Amino Transferase 16 15-37 U/L Alanine Aminotransferase 24 14-59 U/L Alkaline Phosphatase 75 46-116 U/L Total Protein 7.9 6.4-8.2 g/dL Albumin Level 3.4 3.4-5.0 g/dL Globulin 4.5 Albumin Globulin Ratio 0.8 Performing Lab: see note ML - [facility] LB TSH Reviewed date:07/06/2025 09:22:39 AM Interpretation: Performing Lab: Notes/Report: [facility] , Thyroid Stimulating Hormone 2.903 0.358-3.740 uIU/mL Performing Lab: see note - [facility] LB UA RANDOM W or MICROSCOPIC Reviewed date:07/06/2025 09:22:39 AM Interpretation: Performing Lab: Notes/Report: [facility] , Color Urine LT. YELLOW YELLOW Clarity Urine CLEAR CLEAR Specific [place] Urine 1.015 1.005-1.025 pH Urine 8.0 5.0-9.0 Protein Urine TRACE NEG/TRACE mg/dL Glucose Urine UA NEGATIVE NEGATIVE mg/dL Bilirubin Urine NEGATIVE NEGATIVE Ketones Urine 40 NEGATIVE mg/dL Blood Urine NEGATIVE NEGATIVE Nitrite Urine NEGATIVE NEGATIVE Urobilinogen Urine 0.2 0.2-1.0 EU/dL Leukocyte Esterase Urine TRACE NEGATIVE WBC Urine 0-2 NONE SEEN #/HPF RBC Urine 0-2 0-2 #/HPF Bacteria Urine TRACE NONE SEEN #/HPF Mucus Urine NONE SEEN NONE SEEN Squamous Epithelial Cell Urine FEW NONE/RARE #/LPF Crystals Seen? None Seen None Seen #/HPF Cast Seen? NONE SEEN NONE SEEN #/LPF Urine Culture Indicated NO Performing Lab: see note ML - [facility] DRUG SCREEN RAPID (URINE) Reviewed date:05/29/2025 02:19:29 PM Interpretation: Performing Lab: Notes/Report: [facility] , Cannabinoid Screen Urine POSITIVE NEGATIVE Phencyclidine [...] (Phencyclidine): 25 ng/mL BAR (Barbiturates): 200 ng/mL OPI (Opiates): 100 ng/mL BZO (Benzodiazepines): 150 ng/mL OXY (Oxycodone): 100 ng/mL FOLLOWS: AMP (Amphetamine): 500 ng/mL TCA (Trycyclic Antidepressants): 300 ng/mL Performing Lab: see note ML - [facility] HCG Qualitative* Reviewed date:04/20/2025 04:55:30 PM Interpretation: Performing Lab: Notes/Report: [facility] HCG Qualitative POSITIVE NEGATIVE Performing Lab: see note ML - [facility] LB PREG QUANT HCG Reviewed date:04/20/2025 04:55:30 PM Interpretation: Performing Lab: Notes/Report: [facility] , HCG Quantitative 29 5-50 0.2-1 WEEK 500-10,000 3-4 WEEKS 15,000-200,000 6-8 WEEKS 50-500 1-2 WEEKS 10,000-100,000 5-6 WEEKS 100-5,000 2-3 WEEKS 10,000-100,000 2-3 MONTHS 1,000-50,000 4-5 WEEKS Performing Lab: see note [facility] DHEA-Sulfate Reviewed date:03/25/2025 05:44:37 PM Interpretation: Performing Lab: Notes/Report: [facility] , DHEA-Sulfate 386.0 110.0-431.7 ug/dL Performing Lab: see note [facility] FSH Reviewed date:03/25/2025 05:44:37 PM Interpretation: Performing Lab: Notes/Report: [facility] , FSH 9.3 . mIU/mL Adult Female Range Noodle Press Operator: Ilya Manjarrez PhD, Phone: [phone] Ovulation phase 4.7 - 21.5 Luteal phase 1.7 - 7.7 Performed at: [facility] Follicular phase 3.5 - 12.[address] [place] [address] [phone] Postmenopausal 25.8 - 134.8 Performing Lab: see note [facility] Luteinizing Hormone(LH) Reviewed date:03/25/2025 05:44:37 PM Interpretation: Performing Lab: Notes/Report: [facility] , Luteinizing Hormone(LH) 4.4 . mIU/mL Adult Female Range Luteal phase 1.0 - 11.4 Follicular phase 2.4 - 12.6 Ovulation phase 14.0 - 95.6 Postmenopausal 7.7 - 58.5 Performing Lab: see note [facility] TSH Reviewed date:03/24/2025 02:44:38 PM Interpretation: Performing Lab: Notes/Report: [facility] , Thyroid Stimulating Hormone 3.180 0.358-3.740 uIU/mL Performing Lab: see note - [facility] PREG QUANT HCG Reviewed date:03/24/2025 02:44:38 PM Interpretation: Performing Lab: Notes/Report: [facility] , HCG Quantitative <1 500-10,000 3-4 WEEKS 15,000-200,000 6-8 WEEKS 50-500 1-2 WEEKS 1,000-50,000 4-5 WEEKS 10,000-100,000 2-3 MONTHS 100-5,000 2-3 WEEKS 10,000-100,000 5-6 WEEKS 5-50 0.2-1 WEEK Performing Lab: see note ML - [facility] LB CBC AUTO DIFF Reviewed date:03/24/2025 02:44:38 PM Interpretation: Performing Lab: Notes/Report: [facility] , White Blood Count 9.5 4.0-11.0 10 [...] 3/uL Performing Lab: see note ML - [facility] LB TSH Reviewed date:02/16/2025 01:54:56 PM Interpretation: Performing Lab: Notes/Report: [facility] , Thyroid Stimulating Hormone 3.202 0.358-3.740 uIU/mL Performing Lab: see note - [facility] LB PROF 14(COMP METB) Reviewed date:02/16/2025 01:54:56 PM Interpretation: Performing Lab: Notes/Report: [facility] , Sodium 140 136-145 mmol/L Potassium 3.9 [...] Performing Lab: see note ML - [facility] LB PREG QUANT HCG Reviewed date:02/16/2025 01:54:56 PM Interpretation: Performing Lab: Notes/Report: [facility] , HCG Quantitative <1 5-50 0.2-1 WEEK 100-5,000 2-3 WEEKS 15,000-200,000 6-8 WEEKS 50-500 1-2 WEEKS 1,000-50,000 4-5 WEEKS 500-10,000 3-4 WEEKS 10,000-100,000 2-3 MONTHS 10,000-100,000 5-6 WEEKS Performing Lab: see note ML - [facility] LB Reason For Referral No Information [...] Notes Problem Disorder of female genital organs (728142336) Other specified conditions associated with female genital organs and menstrual cycle (N94.89) Active confirmed Problem Somnolence (09074134) Somnolence (R40.0) Active confirmed Problem Sleep apnea (55516109) Severe sleep apnea (G47.30) Active confirmed Problem Transsexual (finding) (520740955) 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) Active confirmed Problem Mixed anxiety and depressive disorder (493044477) Anxiety and depression (F41.8) Active confirmed Encounters Encounter Location Date Provider Diagnosis [facility] [address] [place] [address] 08/08/2024 Carole Desouza Anxiety and depression F41.8 [facility] [address] [place] [address] 08/11/2024 Carole Desouza Assessments Encounter Date Diagnosis [...] Date [employer] [place] [employer] [address] [place] [address] [id number] Kash Tristan Self - patient is the insured Medical (General) History Medical History History ICD Code Severe sleep apnea G47.30 Hospitalization History Reason Date(Month/Year) [facility] [place] 08/2022
[2025-07-17 15:13] LABS: Age Gdln ACOG Testing Note (.); IGP, rfx Aptima HPV ASCU Note (.)
== END 2025-07-13 21:07 | disposition home or self-care (01) ==
LOC: LAB 21:06
PROVIDERS: PCP Nurse Practitioner Family; Visit Provider Physician Assistant
DX: Z01.419 Encounter for gynecological examination (general) (routine) without abnormal findings (principal)
CPT/HCPCS: 88175

== ENCOUNTER 2025-07-18 17:56 | Emergency (ER) | payer OTHER, SELFPAY ==
--- OUTSIDE RECORDS SUMMARY | 2025-07-01 07:00 | XMS_ITS ---
Author Organization The [facility] in [place] Address [address] [place] [address] Care Team Providers Care Machining Associate Name Role Phone Carole Desouza Primary Care Provider [phone] REASON FOR VISIT yearly check up Encounters Encounter Location Date Provider Diagnosis [facility] [address] [place] [address] 07/01/2025 Carole Desouza Plan Of Treatment No Information Progress Notes * Kay TRISTAN MDOB: [birth year] (25 yo F)Acc No.[id number]:07/01/2025 UNLOCKED PROGRESS NOTE Progress Note Patient: Parth GODINEZabellavery Perez Provider: Jason Desouza (TTC), SCISSORS SHARPENER :2000 A ge:25 Y S ex:Female Date:07/01/2025 Address:[address] [place], [place] [phone] Subjective: * Chief Complaints: * 1 . Yearly check up. * Medical History: Objective: * Vitals: Assessment: Plan: * Treatment: * * Electronic signature of Suyapa Steel NP, LINOLEUM FLOOR LAYER.SCISSORS [email or web address] on 07/18/2025 at 06:02 PM EDT Sign off status: Pending Visit Status: N /S N/C (No Show/No Charge) * Provider: Jason TEIXEIRA), SCISSORS SHARPENER Date: Generated for Printi ng/Faxing/eTransmitting on: 06:02 PM EDT
--- OUTSIDE RECORDS SUMMARY | 2025-07-13 14:30 | XMS_ITS | Encounter Summary ---
Author Organization [facility] Address [address] [place] [address] Care Team Providers Care [employer] Teacher Name Role Phone Helio Campos MD Primary Care Provider [phone] Breana Loving AUTO BATTERY BUILDER Unavailable [phone] Reason for Visit * Reason Comments Routine Visit Gynecologic Exam STI Screening Encounter Details Date Type Department Care Team (Latest Contact Info) Description 07/13/2025 2:30 PM EDT Routine [facility] [address] [place] [phone] Betsy Tate PA [address] [place], [facility]11 Yamini (Primary Dx); Second trimester ([facility]); 15 weeks gestation of ([facility]); Well woman exam with routine gynecological exam; Exposure to STD; Need for maternal serum alpha-protein (MSAFP) screening ([facility]); Screening, , for anatomic survey ([facility]) Social History Tobacco Use Types Packs/Day Years [...] nursing note reviewed. Exam conducted with a composite assembler present. Vitals: Estimated body mass index is 53.93 kg/m?? as calculated from the following: Height as of 03/23/25: 4' 11 . Weight as of this encounter: 267 lb. BP: 116/72 Patient's last menstrual period was 03/21/2025. ASSESSMENT & PLAN ICD-10-CM 1. Second trimester ([facility]) Z34.92 POCT urinalysis dipstick manually resulted 2. 15 weeks gestation of ([facility]) Z3A.15 3. Well woman exam with routine gynecological exam Z01.419 Pap Smear 4. Exposure to STD Z20.2 SURESWAB(R) ADVANCED VAGINITIS PLUS, TMA CHLAMYDIA TRACHOMATIS (GENITO/STI) Neisseria gonorrhea DNA probe, direct 5. Need for maternal serum alpha-protein (MSAFP) screening ([facility]) Z36.1 Alpha fetoprotein, maternal Alpha fetoprotein, maternal 6. Screening, , for anatomic survey ([facility]) Z36.89 US OB 14+ weeks anatomy scan [...] EST Ancillary Procedure [facility] [address] [place] [phone] 08/18/2025 11:10 AM EST Routine [facility] [address] [place] [phone] CharyCuong mays, [address] [place], [place] [phone] Scheduled Orders Name Type Priority Associated Diagnoses [...] Imaging Routine Screening, , for anatomic survey ([facility]) Expected: 07/13/2025, Expires: 10/13/2025 Alpha fetoprotein, maternal Lab Routine Need for maternal serum alpha-protein (MSAFP) screening ([facility]) Expected: 07/13/2025 (Approximate), Expires: 07/13/2026 documented as of this encounter Procedures Procedure Name Priority Date/Time Associated Diagnosis Comments POCT URINALYSIS DIPSTICK Routine 07/13/2025 3:16 PM EDT Second trimester ([facility]) documented in this encounter Results * POCT [...] site Second trimester ([facility]) state, incidental 15 weeks gestation of ([facility]) Well woman exam with routine gynecological exam Routine gynecological examination Exposure to STD Need for maternal serum alpha-protein (MSAFP) screening ([facility]) Screening, , for anatomic survey ([facility]) Encounter for anatomic survey documented in this encounter Care Teams [employer] Teacher Relationship Specialty Start Date End Date Helio Campos MD [address] [place] [address] PCP - General Family Medicine 04/05/23 Breana Loving NP [address] [place] [address] PCP - Yolanda Greenfield [facility] 12/30/2408/30 documented as of this encounter
[2025-07-18 18:01] VITALS: BP 138/71; PULSE 90; TEMP 37; O2SAT 97; BMI 53.9
--- OUTSIDE RECORDS SUMMARY | 2025-07-18 18:01 | XMS_ITS | CCD ---
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 Name Role Phone MD Helio Florian Primary Care Provider [phone] MD Param Rao Admit Provider MD Param [...] Admitting Unavailab Helio Cornejo Primary Care Unavailable Inder GARCIA, Breana Gill Unavailable Helio Florian MD Primary Care Provider [phone] RENEE DIEZ Attending Unavailable RENEE DIEZ Referring Unavailable RENEE DIEZ Attending Unavailable BREANA POSADA Attending Unavailable BETSY RUBIO Attending Unavailable Medications Current Medications Medication Drug Class(es) Dates Sig (Normalized) Sig (Original) 24 hr buPROPion hydrochloride 150 mg extended release oral tablet (6 sources) Aminoketone Start: 09-15-2022 take 150 mg by mouth once daily in the morning Bupropion Hcl Active 150 MG PO Every morning 30 September 15, 2022 12:00am End: 03-23-2025 take [...] EACH TRANSDERML Daily September 15, 2022 12:00am nystatin 100 unt/mg topical powder (3 sources) Polyene Antifungal Start: 07-13-2025 End: 07-13-2026 nystatin (Mycostatin) [id number] UNIT/GM powder Indications: Tinea Apply topically in the morning and in the evening and before bedtime. 15 g 07/13/2025 07/13/2026 Active QUEtiapine 25 mg oral tablet (13 sources) Atypical Antipsychotic Start: 04-14-2025 take 2 tablets by mouth at bedtime QUEtiapine (SEROquel) 25 MG tablet Take 50 mg by mouth at bedtime 04/14/2025 Active Start: 04-14-2025 take 1 tablet by geremias th at bedtime QUEtiapine (SEROquel) 25 MG tablet Take 25 mg by mouth at bedtime 04/14/2025 Active sertraline 25 mg oral tablet (17 sources) Serotonin Reuptake Inhibitor Start: 03-18-2025 take [...] Active Problems Problem Classification Problem Date Documented Date Episodic/Chronic Chronic obstructive pulmonary disease and bronchiectasis (2 sources) Bronchitis; Translations: [Bronchitis, not specified as acute or chronic] 09-09-2024 Episodic Female infertility (2 sources) Female infertility; Translations: [Female infertility, unspecified] 03-23-2025 Chronic Headache; including migraine (3 sources) Headache; including migraine; Translations: [HEADACHE UNSPECIFIED] Onset: 09-30-2021 Immunizations and screening for infectious disease (2 sources) Exposure to sexually transmissible disorder; Translations: [Contact with and (suspected) exposure to infections with a predominantly sexual mode of transmission] 07-13-2025 Episodic Menstrual disorders (4 sources) Amenorrhea; Translations: [Amenorrhea, unspecified] 04-19-2025 Chronic Mood disorders (12 sources) Bipolar disorder; Translations: [Bipolar disorder, unspecified] Onset: 05-15-2025 09-13-2022 Chronic Mood disorders (1 source) Mood disorders; Translations: [DEPRESSION UNSPECIFIED] Onset: 09-14-2022 Mycoses (2 sources) Dermatophytosis; Translations: [Dermatophytosis, unspecified] 07-13-2025 Episodic Other endocrine disorders (2 sources) Polycystic ovary syndrome; Translations: [Polycystic ovarian syndrome] 03-23-2025 Chronic Other lower respiratory disease (2 sources) Cough; Translations: [Acute cough] 09-09-2024 Episodic Other nutritional; endocrine; and metabolic disorders (1 source) Morbid (severe) obesity due to excess calories; Translations: [MORBID SEVERE OBES D/T EXCESS FELICIANO] Onset: 10-04-2021 Chronic Other and delivery including normal (9 sources) Urine test positive; Translations: [Encounter for test, result positive] 05-06-2025 Episodic Other screening for suspected conditions (not mental disorders or infectious disease) (6 sources) Possible ; Translations: [Encounter for test, result unknown] 04-19-2025 Episodic Personality disorders (10 sources) Borderline personality disorder; Translations: [Borderline personality disorder] Onset: 05-15-2025 05-15-2025 Chronic Residual codes; unclassified (1 source) Gestation period, 7 weeks; Translations: [Less than 8 weeks gestation of ] 05-15-2025 Episodic Residual codes; unclassified (2 sources) Gestation period, 11 weeks; Translations: [11 weeks gestation of ] 06-15-2025 Episodic Residual codes; unclassified (2 sources) Gestation period, 15 weeks; Translations: [15 weeks gestation of ] 07-13-2025 Episodic Substance-related disorders (1 source) Nicotine dependence, [...] 10-05-2021 Episodic Other aftercare (1 source) 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 BVAB 2,3 (BACTERIAL VAGINOSIS ASSOCIATED BACTERIA 2, 3); MOBILUNCUS SPP Detected Abnormal [facility] ELYSE ALBICANS, PARAPSILOSIS, TROPICALIS 0 [facility] ELYSE ALBICANS, PARAPSILOSIS, TROPICALIS Not detected [facility] ELYSE GLABRATA 0 [facility] ELYSE GLABRATA Not detected [facility] ELYSE KRUSEI 0 [facility] ELYSE KRUSEI Not detected [facility] CHLAMYDIA TRACHOMATIS 0 [facility] CHLAMYDIA TRACHOMATIS Not detected [facility] GARDNERELLA VAGINALIS 0 [facility] GARDNERELLA VAGINALIS Not detected [facility] Interpretation and review of laboratory results Abnormal [facility] MEGASPHAERA (TYPES 1, 2) 0 [facility] MEGASPHAERA (TYPES 1, 2) Not detected [facility] MYCOPLASMA GENITALIUM 0 [facility] MYCOPLASMA GENITALIUM Not detected [facility] MYCOPLASMA HOMINIS 0 [facility] MYCOPLASMA HOMINIS Not detected [facility] NEISSERIA GONORRHOEAE 0 [facility] NEISSERIA GONORRHOEAE Not detected [facility] TRICHOMONAS VAGINALIS 0 [facility] TRICHOMONAS VAGINALIS Not detected [facility] UREAPLASMA PARVUM 0 [facility] UREAPLASMA PARVUM Not detected [facility] UREAPLASMA UREALYTICUM 0 [facility] UREAPLASMA UREALYTICUM Not detected [facility] Urinalysis macro (dipstick) panel (U)on 07-13-2025 Bilirubin, UA Negative Negative - 4(70) +++ mg/dL [facility] Blood, UA Negative Negative - 50 Yogesh/mcL [facility] Clarity, UA Clear [facility] Color, UA Yellow [facility] Glucose, UA Negative Negative - 1999(110) ++++ mg/dL [facility] Interpretation and review of laboratory results Normal [facility] Ketones, UA Negative Negative - 160(16) ++++ mg/dL [facility] Leukocytes, UA Negative Negative - 500+++ Jaci/mcL [facility] Nitrite, UA Negative Negative - Positive [facility] pH, UA 6.0 5 - [address] [facility] Protein, UA Negative Negative - 1999(20) ++++ mg/dL [facility] Spec Grav, UA 1.020 1 - 1.[address] [facility] Urobilinogen, UA 1.0 0.2 - 12 mg/dL [facility], 1928–1983 Urinalysis macro (dipstick) panel (U)on 06-15-2025 Bilirubin, UA Negative Negative - 4(70) +++ mg/dL [facility] Blood, UA Negative Negative - 50 Yogesh/mcL [facility] Clarity, UA Clear [facility] Color, UA Yellow [facility] Glucose, UA Negative Negative - 1999(110) ++++ mg/dL [facility] Interpretation and review of laboratory results Normal [facility] Ketones, UA Negative Negative - 160(16) ++++ mg/dL [facility] Leukocytes, UA Negative Negative - 500+++ Jaci/mcL [facility] Nitrite, UA Negative Negative - Positive [facility] pH, UA 6 5 - [address] [facility] Protein, UA Negative Negative - 1999(20) ++++ mg/dL [facility] Spec Grav, UA 1.025 1 - 1.[address] [facility] Urobilinogen, UA 1.0 0.2 - 12 mg/dL [facility], [facility] BOX TESTon 05-29-2025 BOX TEST SENT OUT [facility] BOX1 [facility] BOX2 05/29/[address] [facility] HCG ( test) Ql (U)o n 05-15-2025 Interpretation and review of laboratory results Abnormal [facility] Preg Test, Ur Positive Negative [facility], [facility] US OB TRANSVAGINALon 025 US OB TRANSVAGINAL [...] UA Negative Negative - 4(70) +++ mg/dL [facility] Blood, UA Negative Negative - 50 Yogesh/mcL [facility] Clarity, UA Clear [facility] Color, UA Yellow [facility] Glucose, UA Negative Negative - 1999(110) ++++ mg/dL [facility] Interpretation and review of laboratory results Normal [facility] Ketones, UA Negative Negative - 160(16) ++++ mg/dL [facility] Leukocytes, UA Negative Negative - 500+++ Jaci/mcL [facility] Nitrite, UA Negative Negative - Positive [facility] pH, UA 6 5 - [address] [facility] Protein, UA Negative Negative - 1999(20) ++++ mg/dL [facility] Spec Grav, UA 1.015 1 - 1.[address] [facility] Urobilinogen, UA 1.0 0.2 - 12 mg/dL [facility], [facility] TBH PREG QUANT HCGon 025 HCG QUANTITATIVE 275 mIU/mL [facility] Comment on above: 5-50 0.2-1 WEEK 50-500 1-2 WEEKS 100-5,000 2-3 WEEKS 500-10,000 3-4 WEEKS 1,000-50,000 4-5 WEEKS 10,000-100,000 5-6 WEEKS 15,000-200,000 6-8 WEEKS 10,000-100,000 2-3 MONTHS [facility] TBH PREG QUANT HCGon 025 HCG QUANTITATIVE 97 mIU/mL [facility] Comment on above: 5-50 0.2-1 WEEK 50-500 1-2 WEEKS 100-5,000 2-3 WEEKS 500-10,000 3-4 WEEKS 1,000-50,000 4-5 WEEKS 10,000-100,000 5-6 WEEKS 15,000-200,000 6-8 WEEKS 10,000-100,000 2-3 MONTHS [facility] HCG ( test) Ql (U)o n 04-19-2025 Interpretation and review of laboratory results Normal [facility] Preg Test, Ur Negative Negative [facility], [facility] ALL PROGESTERONEon 5 PROGESTERONE 9.5 ng/mL . [facility] Comment on above: Follicular phase 0.1 - 0.9 Luteal phase 1.8 - 23.9 Ovulation phase 0.1 - 12.0 First trimester 11.0 - 44.3 Second trimester 25.4 - 83.3 Third trimester 58.7 - 214.0 Postmenopausal 0.0 - 0.1 Performed at: [facility] [id number] Canine Service Teacher: Ilya Manjarrez PhD, Phone: [phone] [facility] MLR HEMOGLOBIN A1Con 025 Glucose [Mass/Vol] 105 mg/dL [facility] HbA1c (Bld) [Mass fraction] 5.3 % 4.5 - 6.2 % [facility] Comment on above: ADA RECOMMENDED LIMI T 4.0 - 6.0 ADA THERAPEUTIC TARGET < 7.0 ACTION SUGGESTED > 7.0 [facility] US PELVIC COMPLETE W/ TVon 0 03-24-2025 [...] II, MD, PHD at 25-Mar-2025 07:52:19 AM [facility] [employer] Normal Not Available Comment on above: Order Comment: US PE LVIS-TRANSVAG IF INDICATED Patient's last menstrual period was 03/21/2025. Cholesterol [Mass/volume] in Serum or PlasmaOrdered By: Param Rao on 09-13-2022 Cholesterol [Mass/Vol] 141 mg/dL 140-200 [facility] Comment on above: Chol less than 200 m g/dl low riskChol 201-239 mg/dl borderline riskChol 240 mg/dl and greater high risk Cholesterol in LDL Calc [Mas s/Vol]Ordered By: Param Rao on 09-13-2022 Cholesterol in LDL [Mass/Vol] 94 mg/dL 0-100 [facility] Comment on above: LDL ATP III CLASSIFI CATIONLDL less than 100 mg/dL OptimalLDL 100-129 mg/dL Near or above optimalLDL 130-159 mg/dL Borderline highLDL 160-189 mg/dL HighLDL greater than 189 mg/dL Very high Cholesterol in VLDL Calc [Ma ss/Vol]Ordered By: Param Rao on 09-13-2022 Cholesterol in VLDL [Mass/Vol] 9 mg/dL [facility] No Panel InformationOrdered By: Param Rao on 09-13-2022 25-Hydroxy Vitamin D Total 11.9 ng/mL 30-100 [facility] Comment on above: VITAMIN D STATUS 25( [...] Cholesterol in HDL [Mass/Vol] 38 mg/dL 35-85 [facility] Comment on above: HDL CHOL ATP-III CLA SSIFICATION Cardiovascular RiskHDL > or equal to 60 mg/dL LOWHDL < 40 mg/dL HIGH Serum or plasma total choles terol/high density lipoprotein (HDL) cholesterol mass ratOrdered By: Param Rao on 09-13-2022 Cholesterol.total/Chol esterol in HDL [Mass ratio] 3.7 {ratio} <5.0 [facility] TSH DL <= 0.005 mIU/L QnOrde red By: Param Rao on 09-13-2022 TSH Qn 0.81 m[IU]/L 0.45-5.33 [facility] Triglyceride [Mass/volume] i n Serum or PlasmaOrdered By: Param Rao on 09-13-2022 Triglyceride [Mass/Vol] 45 mg/dL 35-149 [facility] Comment on above: TRIG ATP III CLASSIF ICATIONTRIG less than 150 mg/dL NormalTRIG 150-199 mg/dL Borderline highTRIG 200-500 mg/dL High TRIG greater than 500 mg/dL Very highStandard traceable to the Center for Disease Conrtrol and Prevention (CDC) test method. ACETAMINOPHENon 09-12-2022 Acetaminophen [Mass/Vol] ug/mL Critically low 10.0-30.0 [facility] Comment on above: Performed By: #### S ALYC, ACET, CMP #### [facility] [address] [address] [address] Machelle Garcia CBC AUTO DIFFon 09-12-2022 BASO # 0.0 103/ul Normal 0.0-0.1 [facility] Comment on above: Performed By: #### C BC #### [facility] [address] [address] [address] Machelle Garcia Basophils/100 WBC (Bld) 0.4 % Normal 0.2-2.0 [facility] Comment on above: Performed By: #### C BC #### [facility] [address] [address] [address] Machelle Garcia EO # 0.1 103/ul Normal 0.0-0.7 [facility] Comment on above: Performed By: #### C BC #### [facility] [address] [place] [address] Dr. Machelle Garcia Eosinophils/100 WBC (Bld) 0.8 % Critically low 0.9-7.0 [facility] Comment on above: Performed By: #### C BC #### [facility] [address] [place] [address] Dr. Machelle Garcia Erythrocyte distribution width (RBC) [Ratio] 12.4 % Normal 11.0-15.0 [facility] Comment on above: Performed By: #### C BC #### [facility] [address] [place] [address] Dr. Machelle Garcia Hematocrit (Bld) [Volume fraction] 40.4 % Normal 36.0-48.0 [facility] Comment on above: Performed By: #### C BC #### [facility] [address] [place] [address] Dr. Machelle Garcia Hemoglobin (Bld) [Mass/Vol] 14.3 g/dL Normal 12.0-16.0 [facility] Comment on above: Performed By: #### C BC #### [facility] [address] [place] [address] Dr. Machelle Garcia IG # 0.02 10e3/ul Normal 0.00-0.03 [facility] Comment on above: Performed By: #### C BC #### [facility] [address] [place] [address] Dr. Machelle Garcia IG % 0.3 % Normal 0.0-0.5 [facility] Comment on above: Performed By: #### C BC #### [facility] [address] [place] [address] Dr. Machelle Garcia LYMPH # 1.0 103/ul Critically low 1.2-3.8 [facility] Comment on above: Performed By: #### C BC #### [facility] [address] [place] [address] Dr. Machelle Garcia Lymphocytes/100 WBC (Bld) 14.1 % Critically low 20.5-60.0 [facility] Comment on above: Performed By: #### C BC #### [facility] [address] [place] [address] Dr. Machelle Garcia MANUAL DIFF REQ NO Normal [facility] Comment on above: Performed By: #### C BC #### [facility] [address] [place] [address] Dr. Machelle Garcia MCH (RBC) [Entitic mass] 29.7 pg Normal 26.7-34.0 [facility] Comment on above: Performed By: #### C BC #### [facility] [address] [place] [address] Dr. Machelle Garcia MCHC (RBC) [Mass/Vol] 35.4 g/dL Critically high 29.9-35.2 [facility] Comment on above: Performed By: #### C BC #### [facility] [address] [place] [address] Dr. Machelle Garcia MCV (RBC) [Entitic vol] 83.8 fL Normal 81.0-99.0 [facility] Comment on above: Performed By: #### C BC #### [facility] [address] [place] [address] Dr. Machelle Garcia MONO # 0.9 103/ul Critically high 0.3-0.8 [facility] Comment on above: Performed By: #### C BC #### [facility] [address] [place] [address] Dr. Machelle Garcia Monocytes/100 WBC (Bld) 12.6 % Critically high 1.7-12.0 [facility] Comment on above: Performed By: #### C BC #### [facility] [address] [place] [address] Dr. Machelle Garcia NEUT # 5.2 103/ul Normal 1.4-6.5 [facility] Comment on above: Performed By: #### C BC #### [facility] [address] [address] [address] Machelle Garcia Neutrophils/100 WBC (Bld) 71.8 % Normal 43.0-75.0 [facility] Comment on above: Performed By: #### C BC #### [facility] [address] [address] [address] Machelle Garcia Platelet mean volume (Bld) [Entitic vol] 9.9 fL Normal 9.5-13.5 [facility] Comment on above: Performed By: #### C BC #### [facility] [address] [address] [address] Machelle Garcia PLT 245 103/ul Normal 150-450 [facility] Comment on above: Performed By: #### C BC #### [facility] [address] [place] [address] Dr. Machelle Garcia RBC 4.82 106/ul Normal 4.20-5.40 [facility] Comment on above: Performed By: #### C BC #### [facility] [address] [address] [address] Machelle Garcia WBC 7.2 103/ul Normal 4.0-11.0 [facility] Comment on above: Performed By: #### C BC #### [facility] [address] [address] [address] Machelle Garcia DRUG SCREEN RAPID (URINE)on 09-12-2022 AMP Negative Normal NEGATIVE [facility] Comment on above: Performed By: #### D RUGRPD ####[facility] [address] [id number] Garcia BAR Negative Normal NEGATIVE [facility] Comment on above: Performed By: #### D RUGRPD ####[facility] [address] [id number] Garcia BUP Negative Normal NEGATIVE [facility] Comment on above: Performed By: #### D RUGRPD ####[facility] [address] [id number] Garcia BZO Negative Normal NEGATIVE [facility] Comment on above: Performed By: #### D RUGRPD ####[facility] [address] [address]Dr. Machelle Garcia JOHN Negative Normal NEGATIVE [facility] Comment on above: Performed By: #### D RUGRPD ####[facility] [address] [address]Dr. Machelle Garcia CUT-OFFS SEE BELOW Normal [facility] Comment on above: Result Comment: [...] 300 ng/mL Performed By: #### D RUGRPD ####[facility] [address] [place], [place] [address]Dr. Machelle Garcia DRUG CUT HEADER DRUG CLASS TEST SYSTEM CUT-OFF CONCENTRATIONS ARE FOLLOWS: Normal [facility] Comment on above: Performed By: #### D RUGRPD ####[facility] [address] [place], [place] [address]Dr. Machelle Garcia mAMP Negative Normal NEGATIVE [facility] Comment on above: Performed By: #### D RUGRPD ####[facility] [address] [place], [place] [address]Dr. Machelle Garcia MTD Negative Normal NEGATIVE [facility] Comment on above: Performed By: #### D RUGRPD ####[facility] [address] [place], [place] [address]Dr. Machelle Garcia OPI Negative Normal NEGATIVE [facility] Comment on above: Performed By: #### D RUGRPD ####[facility] [address] [place], [place] [address]Dr. Machelle Garcia OXY Negative Normal NEGATIVE [facility] Comment on above: Performed By: #### D RUGRPD ####[facility] [address] [address]Dr. Machelle Garcia PCP Negative Normal NEGATIVE [facility] Comment on above: Performed By: #### D RUGRPD ####[facility] [address] [address]Dr. Machelle Garcia PPX Negative Normal NEGATIVE [facility] Comment on above: Performed By: #### D RUGRPD ####[facility] [address] [address]Dr. Machelle Garcia TCA Negative Normal NEGATIVE [facility] Comment on above: Performed By: #### D RUGRPD ####[facility] [address] [address]Dr. Machelle Garcia THC Positive Abnormal NEGATIVE [facility] Comment on above: Performed By: #### D RUGRPD ####[facility] [address] [address]Dr. Machlele Garcia ER URINE PROFILEon 2 Bilirubin Ql (U) Negative Normal NEGATIVE [facility] Comment on above: Performed By: #### Jason ALAMO ERUR #### [facility] [address] [place] [address] Dr. Machelle Garcia Clarity (U) CLEAR Normal CLEAR [facility] Comment on above: Performed By: #### Jason ALAMO, ERUR #### [facility] [address] [address] [address] Machelle Garcia Color (U) LT. YELLOW Normal YELLOW [facility] Comment on above: Performed By: #### Jason ALAMO ERUR #### [facility] [address] [place] [address] Dr. Machelle TAYLOR A micrscopic examination will be performed if indicated. Normal [facility] Comment on above: Performed By: #### P RADHAU, ERUR #### [facility] [address] [address] [address] Machelle Garcia Glucose Ql (U) Negative Normal NEGATIVE [facility] Comment on above: Performed By: #### P REGU, ERUR #### [facility] [address] [address] [address] Machelle Garcia Hemoglobin Ql (U) Negative Normal NEGATIVE [facility] Comment on above: Performed By: #### P REGU, ERUR #### [facility] [address] [address] [address] Machelle Garcia Ketones Ql (U) TRACE Abnormal NEGATIVE [facility] Comment on above: Performed By: #### P REGU, ERUR #### [facility] [address] [address] [address] Machelle Garcia LEUKOCYTES Negative Normal NEGATIVE [facility] Comment on above: Performed By: #### P REGU, ERUR #### [facility] [address] [place] [address] Dr. Machelle Garcia Nitrite Ql (U) Negative Normal NEGATIVE [facility] Comment on above: Performed By: #### P REGU, ERUR #### [facility] [address] [place] [address] Dr. Machelle Garcia pH (U) 5.5 [pH] Normal 5-9 [facility] Comment on above: Performed By: #### P REGU, ERUR #### [facility] [address] [place] [address] Dr. Machelle Garcia SPEC GRAVITY 1.020 Normal 1.005-<=1.[address] [place] [address] Comment on above: Performed By: #### P REGU, ERUR #### [facility] [address] [place] [address] Dr. Machelle Garcia UA PROTEIN Negative Normal NEGATIVE/ TRACE [facility] Comment on above: Performed By: #### P REGU, ERUR #### [facility] [address] [address] [address] Machelle Garcia UR MICRO IND NOT INDICATED Normal [facility] Comment on above: Performed By: #### P REGU, ERUR #### [facility] [address] [place] [address] Dr. Machelle Garcia Urobilinogen Qn (U) 0.2 {Jeanine'U}/dL Normal 0.2 - 1. 0 [facility] Comment on above: Performed By: #### P REGHung, ERUR #### [facility] [address] [address] [address] Machelle Garcia ETHANOL (BLD ALC)on 09-12-20 22 ALC NOTE NOTE: 80 mg/dl is th e legal limit for a blood alcohol level Normal [facility] Comment on above: Performed By: #### E TH ####[facility] [address] [id number]. Machelle Garcia Ethanol [Mass/Vol] mg/dL Normal [facility] Comment on above: Performed By: #### E TH ####[facility] [address] [id number]. Machelle Garcia URon 09-12-2022 , QUAL Negative Normal NEGATIVE [facility] Comment on above: Performed By: #### Jason ALAMO, ERUR #### [facility] [address] [address] [address] Machelle Garcia PROF 14(COMP METB)on 022 Albumin [Mass/Vol] 3.9 g/dL Normal 3.4-5.[address] [facility] Comment on above: Performed By: #### S ALYC, ACET, CMP #### [facility] [address] [address] [address] Machelle Garcia Albumin/Globulin [Mass ratio] 1.1 {ratio} Normal [facility] Comment on above: Performed By: #### S ALYC, ACET, CMP #### [facility] [address] [address] [address] Machelle Garcia ALP [Catalytic activity/Vol] 89 U/L Normal 46-116 [facility] Comment on above: Performed By: #### S ALYC, ACET, CMP #### [facility] [address] [address] [address] Machelle Garcia ALT [Catalytic activity/Vol] 19 U/L Normal 14-59 [facility] Comment on above: Performed By: #### S ALYC, ACET, CMP #### [facility] [address] [address] [address] Machelle Garcia Anion gap [Moles/Vol] 12.1 mmol/L Normal [facility] Comment on above: Performed By: #### S ALYC, ACET, CMP #### [facility] [address] [address] [address] Machelle Garcia AST [Catalytic activity/Vol] 16 U/L Normal 15-37 [facility] Comment on above: Performed By: #### S ALYC, ACET, CMP #### [facility] [address] [address] [address] Machelle Garcia Bilirubin [Mass/Vol] 0.4 mg/dL Normal 0.2-1.0 [facility] Comment on above: Performed By: #### S ALYC, ACET, CMP #### [facility] [address] [address] [address] Machelle Garcia Calcium [Mass/Vol] 9.0 mg/dL Normal 8.5-10.[address] [facility] Comment on above: Performed By: #### S ALYC, ACET, CMP #### [facility] [address] [place] [address] Dr. Machelle Garcia Chloride [Moles/Vol] 104 mmol/L Normal 98-107 [facility] Comment on above: Performed By: #### S ALYC, ACET, CMP #### [facility] [address] [address] [address] Machelle Garcia CO2 [Moles/Vol] 25.5 mmol/L Normal 21.0-32.0 [facility] Comment on above: Performed By: #### S ALYC, ACET, CMP #### [facility] [address] [place] [address] Dr. Machelle Garcia Creatinine [Mass/Vol] 0.86 mg/dL Normal 0.55-1.02 [facility] Comment on above: Performed By: #### S ALYC, ACET, CMP #### [facility] [address] [place] [address] Dr. Machelle Garcia EGFR-AF THAI >60 Normal >=60 [facility] Comment on above: Performed By: #### S ALYC, ACET, CMP #### [facility] [address] [address] [address] Machelle Garcia EGFR-NON AF THAI >60 Normal >=60 [facility] Comment on above: Performed By: #### S ALYC ACET, CMP #### [facility] [address] [address] [address] Machelle Garcia Globulin (S) [Mass/Vol] 3.4 g/dL Normal [facility] Comment on above: Performed By: #### S ALTOSHA ACET, CMP #### [facility] [address] [place] [address] Dr. Machelle Garcia Glucose [Mass/Vol] 102 mg/dL Normal 74-106 [facility] Comment on above: Performed By: #### S ALYC ACET, CMP #### [facility] [address] [address] [address] Machelle Garcia Potassium [Moles/Vol] 3.6 mmol/L Normal 3.5-5.1 [facility] Comment on above: Performed By: #### S ALTOSHA ACET, CMP #### [facility] [address] [place] [address] Dr. Machelle Garcia Protein [Mass/Vol] 7.3 g/dL Normal 6.4-8.2 [facility] Comment on above: Performed By: #### S ALYC, ACET, CMP #### [facility] [address] [place] [address] Dr. Machelle Garcia Sodium [Moles/Vol] 138 mmol/L Normal 136-145 [facility] Comment on above: Performed By: #### S ALYC, ACET, CMP #### [facility] [address] [place] [address] Dr. Machelle Garcia Urea nitrogen [Mass/Vol] 10.0 mg/dL Normal 7.0-18.0 [facility] Comment on above: Performed By: #### S ALYC, ACET, CMP #### [facility] [address] [address] [address] Machelle Garcia Urea nitrogen/Creatinine [Mass ratio] 11.6 mg/mg Normal [facility] Comment on above: Performed By: #### S FAITH PIERSON, CMP #### [facility] [address] [place] [address] Dr. Machelle Garcia SALICYLATEon 09-12-2022 SALICYLATE <2.8 Normal <=19.9 [facility] Comment on above: Performed By: #### S FAITH PIERSON, CMP #### [facility] [address] [address] [address] Machelle Garcia XR CHEST 1 Von [...] ROSEANNE GRADY Date: 2021-10-03 20:52 Normal [facility] CBC AUTO DIFFon 09-30-2021 BASO # 0.0 103/ul Normal 0.0-0.1 [facility] Comment on above: Performed By: #### C BC #### [facility] [address] [place] [address] Dr. Machelle Garcia Basophils/100 WBC (Bld) 0.4 % Normal 0.2-2.0 [facility] Comment on above: Performed By: #### C BC #### [facility] [address] [place] [address] Dr. Machelle Garcia EO # 0.1 103/ul Normal 0.0-0.7 [facility] Comment on above: Performed By: #### C BC #### [facility] [address] [place] [address] Dr. Machelle Garcia Eosinophils/100 WBC (Bld) 1.3 % Normal 0.9-7.0 [facility] Comment on above: Performed By: #### C BC #### [facility] [address] [place] [address] Dr. Machelle Garcia Erythrocyte distribution width (RBC) [Ratio] 12.8 % Normal 11.0-15.0 [facility] Comment on above: Performed By: #### C BC #### [facility] [address] [place] [address] Dr. Machelle Garcia Hematocrit (Bld) [Volume fraction] 40.7 % Normal 36.0-48.0 [facility] Comment on above: Performed By: #### C BC #### [facility] [address] [place] [address] Dr. Machelle Garcia Hemoglobin (Bld) [Mass/Vol] 13.7 g/dL Normal 12.0-16.0 [facility] Comment on above: Performed By: #### C BC #### [facility] [address] [place] [address] Dr. Machelle Garcia IG # 0.03 10e3/ul Normal 0.00-0.03 [facility] Comment on above: Performed By: #### C BC #### [facility] [address] [place] [address] Dr. Machelle Garcia IG % 0.4 % Normal 0.0-0.5 [facility] Comment on above: Performed By: #### C BC #### [facility] [address] [place] [address] Dr. Machelle Garcia LYMPH # 0.6 103/ul Critically low 1.2-3.8 [facility] Comment on above: Performed By: #### C BC #### [facility] [address] [place] [address] Dr. Machelle Garcia Lymphocytes/100 WBC (Bld) 8.8 % Critically low 20.5-60.0 [facility] Comment on above: Performed By: #### C BC #### [facility] [address] [place] [address] Dr. Machelle Garcia MANUAL DIFF REQ NO Normal [facility] Comment on above: Performed By: #### C BC #### [facility] [address] [place] [address] Dr. Machelle Garcia MCH (RBC) [Entitic mass] 29.0 pg Normal 26.7-34.0 [facility] Comment on above: Performed By: #### C BC #### [facility] [address] [place] [address] Dr. Machelle Garcia MCHC (RBC) [Mass/Vol] 33.7 g/dL Normal 29.9-35.2 [facility] Comment on above: Performed By: #### C BC #### [facility] [address] [place] [address] Dr. Machelle Garcia MCV (RBC) [Entitic vol] 86.2 fL Normal 81.0-99.0 [facility] Comment on above: Performed By: #### C BC #### [facility] [address] [place] [address] Dr. Machelle Garcia MONO # 1.0 103/ul Critically high 0.3-0.8 [facility] Comment on above: Performed By: #### C BC #### [facility] [address] [place] [address] Dr. Machelle Garcia Monocytes/100 WBC (Bld) 14.4 % Critically high 1.7-12.0 [facility] Comment on above: Performed By: #### C BC #### [facility] [address] [place] [address] Dr. Machelle Garcia NEUT # 5.1 103/ul Normal 1.4-6.5 [facility] Comment on above: Performed By: #### C BC #### [facility] [address] [place] [address] Dr. Machelle Garcia Neutrophils/100 WBC (Bld) 74.7 % Normal 43.0-75.0 [facility] Comment on above: Performed By: #### C BC #### [facility] [address] [place] [address] Dr. Machelle Garcia Platelet mean volume (Bld) [Entitic vol] 9.7 fL Normal 9.5-13.5 [facility] Comment on above: Performed By: #### C BC #### [facility] [address] [place] [address] Dr. Machelle Garcia PLT 211 103/ul Normal 150-450 [facility] Comment on above: Performed By: #### C BC #### [facility] [address] [place] [address] Dr. Machelle Garcia RBC 4.72 106/ul Normal 4.20-5.40 [facility] Comment on above: Performed By: #### C BC #### [facility] [address] [place] [address] Dr. Mcahelle Garcia WBC 6.8 103/ul Normal 4.0-11.0 [facility] Comment on above: Performed By: #### C BC #### [facility] [address] [place] [address] Dr. Machelle Garcia [facility]02 SARS-CoV-2 (COVID-19) RNA BERNARDINO+probe Ql (Unsp spec) Detected Critically abnormal NOT DETECTED [facility] Comment on above: Result Comment: This test is not yet approved or cleared by the [place] FDA. When there are no FDA-approved or cleared tests available, and other criteria are met, FDA can make tests available under an emergency access mechanism called an Emergency Use Authorization (EUA). The EUA for this test is supported by the [place] of Health and Human Service's declaration that [...] used). Performed By: #### C VDTBH #### [facility] [address] [place] [address] Dr. Machelle Garcia D-DIMERon 09-30-2021 D-DIMER 0.37 mg/L FEU Normal 0.19-0.50 [facility] Comment on above: Performed By: #### D DIM #### [facility] [address] [place], [place] [id number] Dr. Machelle Garcia D-DIMER COMMENTS SEE BELOW Normal [facility] Comment on above: Result Comment: Incr [...] hospitalization. Performed By: #### D DIM #### [facility] [address] [address] [address] Machelle Garcia PROF 14(COMP METB)on 021 Albumin [Mass/Vol] 3.5 g/dL Normal 3.5-5.[address] [facility] Comment on above: Performed By: #### C MP ####[facility] [address] [address]DrMarilee Garcia Albumin/Globulin [Mass ratio] 0.9 {ratio} Normal [facility] Comment on above: Performed By: #### C MP ####[facility] [address] [address]Dr. Machelle Garcia ALP [Catalytic activity/Vol] 81 U/L Normal 38-126 [facility] Comment on above: Performed By: #### C MP ####[facility] [address] [address]Dr. Machelle Garcia ALT [Catalytic activity/Vol] 44 U/L Normal 9-52 [facility] Comment on above: Performed By: #### C MP ####[facility] [address] [address]DrMarilee Garcia Anion gap [Moles/Vol] 12.2 mmol/L Normal Th [facility] Comment on above: Performed By: #### C MP ####[facility] [address] [address]Dr. Machelle Garcia AST [Catalytic activity/Vol] 17 U/L Normal 14-36 [facility] Comment on above: Performed By: #### C MP ####[facility] [address] [address]Dr. Machelle Garcia Bilirubin [Mass/Vol] 0.3 mg/dL Normal 0.2-1.3 [facility] Comment on above: Performed By: #### C MP ####[facility] [address] [address]Dr. Machelle Garcia Calcium [Mass/Vol] 8.7 mg/dL Normal 8.4-10.[address] [facility] Comment on above: Performed By: #### C MP ####[facility] [address] [place], [place] [address]Dr. Machelle Garcia Chloride [Moles/Vol] 103 mmol/L Normal 98-107 [facility] Comment on above: Performed By: #### C MP ####[facility] [address] [place], [place] [address]Dr. Machelle Garcia CO2 [Moles/Vol] 25.3 mmol/L Normal 22.0-30.0 [facility] Comment on above: Performed By: #### C MP ####[facility] [address] [place], [place] [address]Dr. Machelle Garcia Creatinine [Mass/Vol] 0.87 mg/dL Normal 0.52-1.04 [facility] Comment on above: Performed By: #### C MP ####[facility] [address] [place], [place] [address]Dr. Machelle Garcia EGFR-AF THAI >60 Normal >=60 [facility] Comment on above: Performed By: #### C MP ####[facility] [address] [place], [place] [address]Dr. Machelle Garcia EGFR-NON AF THAI >60 Normal >=60 [facility] Comment on above: Performed By: #### C MP ####[facility] [address] [place], [place] [address]Dr. Machelle Garcia Globulin (S) [Mass/Vol] 3.8 g/dL Normal [facility] Comment on above: Performed By: #### C MP ####[facility] [address] [id number]. Machelle Garcia Glucose [Mass/Vol] 99 mg/dL Normal 74-106 [facility] Comment on above: Performed By: #### C MP ####[facility] [address] [address]Dr. Machelle Garcia Potassium [Moles/Vol] 3.5 mmol/L Normal 3.4-5.0 [facility] Comment on above: Performed By: #### C MP ####[facility] [address] [address]Dr. Machelle Garcia Protein [Mass/Vol] 7.3 g/dL Normal 6.1-8.2 [facility] Comment on above: Performed By: #### C MP ####[facility] [address] [address]Dr. Machelle Garcia Sodium [Moles/Vol] 137 mmol/L Normal 137-145 [facility] Comment on above: Performed By: #### C MP ####[facility] [address] [id number]. Machelle Garcia Urea nitrogen [Mass/Vol] 11.0 mg/dL Normal 6.4-19.3 [facility] Comment on above: Performed By: #### C MP ####[facility] [address] [address]Dr. Machelle Garcia Urea nitrogen/Creatinine [Mass ratio] 12.6 mg/mg Normal [facility] Comment on above: Performed By: #### C MP ####[facility] [address] [place], [place] [id number]. Machelle Garcia Cytology Cervical or vaginal smear or scraping studyOrdered By: Beata Greenberg on 12-09-[address] [facility] Vital Signs Date Time Vital Sign Value Performing Clinician Facility 07-13-2025 15:04-0400 Body mass index (BMI) [Ratio] 53.93 kg/m2 Betsy JUÁREZ Work Phone: [facility] 07-13-2025 15:04-0400 Body weight 121.11 kg Betsy JUÁREZ Work Phone: [facility] 07-13-2025 15:04-0400 Diastolic blood pressure 72 mm[Hg] Betsy Rubio PA Work Phone: [facility] 07-13-2025 15:04-0400 Systolic blood pressure 116 mm[Hg] Betsy Rubio PA Work Phone: [facility] 06-15-2025 10:55-0400 Body mass index (BMI) [Ratio] 53 kg/m2 Renee Chary DO Work Phone: [facility] 06-15-2025 10:55-0400 Body weight 119.02 kg Renee Chary DO Work Phone: [facility] 06-15-2025 10:55-0400 Diastolic blood pressure 70 mm[Hg] Renee Chary DO Work Phone: [facility] 06-15-2025 10:55-0400 Systolic blood pressure 118 mm[Hg] Renee Chary DO Work Phone: [facility] 05-15-2025 10:37-0400 Body mass index (BMI) [Ratio] 53.52 kg/m2 Chary Ob [facility] 05-15-2025 10:37-0400 Body weight 120.2 kg Chary Ob [facility] 05-15-2025 10:37-0400 Diastolic blood pressure 74 mm[Hg] Chary Ob [facility] 05-15-2025 10:37-0400 Systolic blood pressure 124 mm[Hg] Chary Ob [facility] 04-19-2025 09:36-0400 Body mass index (BMI) [Ratio] 51.71 kg/m2 Monty Lemons DO Work Phone: [facility] 04-19-2025 09:36-0400 Body temperature 98.71 [degF] Monty Lemons DO Work Phone: [facility] 04-19-2025 09:36-0400 Body weight 116.12 kg Monty Lemons DO Work Phone: [facility] 04-19-2025 09:36-0400 Diastolic blood pressure 72 mm[Hg] Monty Lemons DO Work Phone: [facility] 04-19-2025 09:36-0400 Heart rate 111 /min Monty Lemons DO Work Phone: [facility] 04-19-2025 09:36-0400 SaO2% (BldA) [Mass fraction] 99 % Monty Lemons DO Work Phone: [facility] 04-19-2025 09:36-0400 Systolic blood pressure 122 mm[Hg] Monty Lemons DO Work Phone: [facility] 03-23-2025 09:02-0400 Body height 149.9 cm Renee Chary DO Work Phone: [facility] 03-23-2025 09:02-0400 Body mass index (BMI) [Ratio] 51.71 kg/m2 Renee Chary DO Work Phone: [facility] 03-23-2025 09:02-0400 Body weight 116.12 kg Renee Chary DO Work Phone: [facility] 03-23-2025 09:02-0400 Diastolic blood pressure 70 mm[Hg] Renee Chary DO Work Phone: [facility] 03-23-2025 09:02-0400 Systolic blood pressure 120 mm[Hg] Renee Chary DO Work Phone: [facility] 09-09-2024 12:49-0500 Body mass index (BMI) [Ratio] 63.11 kg/m2 Breana Posada [employer] Work Phone: [facility] 09-09-2024 12:49-0500 Body temperature 98.1 [degF] Breana Posada [employer] Work Phone: [facility] 09-09-2024 12:49-0500 Body weight 105.9 kg Breana Posada [employer] Work Phone: [facility] 09-09-2024 12:49-0500 Diastolic blood pressure 80 mm[Hg] Breana Posada [employer] Work Phone: [facility] 09-09-2024 12:49-0500 Heart rate 103 /min Breana Posada [employer] Work Phone: [facility] 09-09-2024 12:49-0500 SaO2% (BldA) [Mass fraction] 98 % Breana Posada [employer] Work Phone: [facility] 09-09-2024 12:49-0500 Systolic blood pressure 100 mm[Hg] Breana Posada [employer] Work Phone: [facility] 09-15-2022 07:26-0500 Body temperature 98.4 [degF] MD Helio Florian Work Phone: [facility] 09-15-2022 07:26-0500 Diastolic blood pressure 70 mm[Hg] MD Helio Florian Work Phone: [facility] 09-15-2022 07:26-0500 Heart rate 92 /min MD Helio Florian Work Phone: [facility] 09-15-2022 07:26-0500 Respiratory rate 16 /min MD Helio Florian Work Phone: [facility] 09-15-2022 07:26-0500 SaO2% (BldA) [Mass fraction] 97 % MD Helio Florian Work Phone: [facility] 09-15-2022 07:26-0500 Systolic blood pressure 117 mm[Hg] MD Helio Florian Work Phone: [facility] 09-13-2022 00:57-0500 Body height 149.86 cm MD Helio Florian Work Phone: [facility] 09-13-2022 00:57-0500 Body weight 90.71 kg MD Helio Florian Work Phone: [facility] Encounters Encounter Date Encounter Type Care Provider Facility Start: 07-13-2025 End: 07-13-2025 Office outpatient visit 15 minutes Betsy JUÁREZ Work Phone: [facility] Comment on above: Tinea (Primary Dx); Second trimester ([facility]); 15 weeks gestation of ([facility]); Well woman exam with routine gynecological exam; Exposure to STD; Need for maternal serum alpha-protein (MSAFP) screening ([facility]); Screening, , for anatomic survey ([facility]) Start: 07-13-2025 End: 07-13-2025 Patient encounter procedure Betsy JUÁREZ Work Phone: [facility] Start: 07-13-2025 End: 07-13-2025 ambulatory BETSY RUBIO Not Available Start: 07-13-2025 End: 07-13-2025 Bamboo flowsheet Betsy JUÁREZ Work Phone: [facility] Start: 07-13-2025 End: 07-14-2025 Bamboo flowsheet Betsy JUÁREZ Work Phone: [facility] Start: 07-13-2025 End: 07-14-2025 External Result Encounter Betsy JUÁREZ Work Phone: [facility] Unsolicited Start: 06-15-2025 End: 06-15-2025 Bamboo flowsheet Renee Chary DO Work Phone: [facility] Start: 06-15-2025 End: 06-15-2025 Bamboo flowsheet Renee Chary DO Work Phone: [facility] Start: 06-15-2025 End: 06-15-2025 Office outpatient visit 15 minutes Renee Chary DO Work Phone: [facility] Comment on above: Second trimester pre gnancy ([facility]); First trimester ([facility]); 11 weeks gestation of ([facility]) Start: 06-15-2025 End: 06-15-2025 ambulatory RENEE CHARY Not Available Start: 05-29-2025 End: 05-29-2025 Clinisync Result Encounter Columba Temple NP Work Phone: [facility] Unsolicited Start: 05-29-2025 End: 05-29-2025 Clinisync Result Encounter Columba Temple [employer] Work Phone: [facility] Unsolicited Start: 05-15-2025 End: 05-15-2025 ambulatory Chary Nurse [facility] Comment on above: GA: 7w0d Start: 04-23-2025 [...] Dx); Amenorrhea Start: 04-14-2025 ambulatory Dante Esparza acility:[facility] Start: 04-10-2025 End: 04-11-2025 Clinisync Result Encounter [...] Office outpatient visit 25 minutes Breana Posada [employer] Work Phone: [facility] Comment on above: Acute cough (Primary Dx); Bronchitis Start: 09-09-2024 End: 09-09-2024 ambulatory BREANA POSADA Not Available Start: 09-13-2022 End: 09-15-2022 Evaluation and management of inpatient MD Helio Florian Work Phone: [facility] Start: 09-12-2022 End: 09-13-2022 ambulatory TAL IQBAL Facility:[facility] Start: 10-19-2021 End: 10-19-[address] HELIO FLORIAN Facility:[facility] Start: 10-03-2021 End: 10-03-[address] HELIO FLORIAN Facility:[facility] Start: 09-30-2021 End: 09-30-[address] SUMI DURON Facility:[facility] Procedures Date Procedure Procedure Detail Performing Clinician Start: 07-13-2025 RECURRENT VAGINITIS (HTRX) Betsy JUÁREZ Work Phone: Start: 07-13-2025 Urnls dip stick/tabl et rgnt non-auto w/o micrscp Betsy JUÁREZ Work Phone: Start: 06-15-2025 Urnls dip stick/tabl et rgnt non-auto w/o micrscp Renee Chary DO Work Phone: Start: 05-29-2025 BOX TEST Columba Wale ran GARCIA Work Phone: Start: 05-15-2025 Urnls dip stick/tabl et rgnt non-auto w/o micrscp Renee Chary DO Work Phone: Start: 04-23-2025 [facility] PREG QUANT HCG Core y Chary DO Work Phone: Start: 04-21-2025 [facility] PREG QUANT HCG Core y Chary DO Work Phone: Start: 04-19-2025 Urine test visual color cmprsn meths Monyt Lemons DO Work Phone: Start: 04-10-2025 ALL PROGESTERONE Renee Chary DO Work Phone: Start: 03-24-2025 MLR HEMOGLOBIN A1C Core y Chary DO Work Phone: Start: 12-09-2020 Cytp cerv/vag auto t hin layer prep mnl screen Albert Barnard Plan of Treatment Date Care Activity Detail Author Start: 08-18-2025 End: 08-18-2025 Patient encounter procedure 08/18/2025 11:10 AM EST Routine [facility] [address] [place] [address] Renee Diez, DO [address] [place] [address] [facility] Start: 08-18-2025 End: 08-18-2025 Professional / ancillary services management 08/18/2025 10:00 AM EST Ancillary Procedure LEA NIELSEN [address] [id number] [facility] Start: 07-27-2025 End: 07-27-2025 Patient encounter procedure [facility] Start: 07-13-2025 End: 07-13-2025 Patient encounter procedure [facility] Comment on above: Arrived Start: 07-13-2025 End: 07-13-2026 Alpha fetoprotein, maternal Alpha fetoprotein, maternal Lab Routine Need for maternal serum alpha-protein (MSAFP) screening ([facility]) Expected: 07/13/2025 (Approximate), Expires: 07/13/[address] [facility] Comment on above: Expected: 07/13/2025 (Approximate), Expires: 07/13/2026 Start: 07-13-2025 End: 10-13-2025 US for US OB 14+ weeks anatomy scan Imaging Routine Screening, , for anatomic survey ([facility]) Expected: 07/13/2025, Expires: 10/13/[address] [facility] Comment on above: Expected: 07/13/2025 , Expires: 10/13/2025 Start: 06-15-2025 End: 06-15-2025 Patient encounter procedure LEA NIELSEN Comment on above: Arrived Start: 06-01-2025 [facility] Start: 05-15-2025 End: 05-15-2026 ABO/Rh ABO/Rh Lab Routine Missed menses , unspecified gestational age ([facility]) Expected: 05/15/2025 (Approximate), Expires: 05/15/[address] [facility] Comment on above: Expected: 05/15/2025 (Approximate), Expires: 05/15/2026 Start: 05-15-2025 End: 05-15-2026 Blood type and Indirect antibody screen panel - Blood Type and screen Lab Routine Missed menses , unspecified gestational age ([facility]) Expected: 05/15/2025 (Approximate), Expires: 05/15/2026 [facility] Comment on above: Expected: 05/15/2025 (Approximate), Expires: 05/15/2026 Start: 05-15-2025 End: 05-15-2026 Drugs of abuse panel - Urine by Screen method Rapid drug screen, urine Lab Routine , unspecified gestational age ([facility]) Encounter for supervision of normal first in first trimester ([facility]) Expected: 05/15/2025 (Approximate), Expires: 05/15/2026 [facility] Comment on above: Expected: 05/15/2025 (Approximate), Expires: 05/15/2026 Start: 05-15-2025 End: 05-15-2025 ambulatory 05/15/2025 10:00 AM EDT Initial [facility] [address] [place] [address] [facility] Start: 05-15-2025 End: 05-15-2025 Professional / ancillary services management 05/15/2025 9:30 AM EDT Ancillary Procedure [facility] [place] [phone] [facility] Start: 05-06-2025 End: 08-06-2025 US Pelvis transvaginal US OB transvaginal Imaging Routine Missed menses Positive urine test ([facility]) Expected: 05/06/2025, Expires: 08/06/2025 [facility] Work Phone: Comment on above: Expected: 05/06/2025 , Expires: 08/06/2025 Start: 03-24-2025 End: 03-24-2025 Professional / ancillary services management 03/24/2025 10:00 AM EDT Ancillary Procedure [facility] [address] [place] [address] [facility] Start: 03-23-2025 End: 03-23-2026 Antimullerian hormone (AMH) Antimullerian hormone (AMH) Lab Routine Female infertility PCOS (polycystic ovarian syndrome) Expected: 03/23/2025, Expires: 03/23/2026 [facility] Comment on above: Expected: 03/23/2025 , Expires: 03/23/2026 Start: 03-23-2025 End: 03-23-2026 CBC W Auto Differential panel - Blood CBC and differential Lab Routine Female infertility PCOS (polycystic ovarian syndrome) Expected: 03/23/2025 (Approximate), Expires: 03/23/2026 [facility] Comment on above: Expected: 03/23/2025 (Approximate), Expires: 03/23/2026 Start: 03-23-2025 End: 03-23-2026 DHEA DHEA Lab Routine Female infertility PCOS (polycystic ovarian syndrome) Expected: 03/23/2025, Expires: 03/23/2026 [facility] Comment on above: Expected: 03/23/2025 , Expires: 03/23/2026 Start: 03-23-2025 End: 03-23-2026 DHEA-sulfate DHEA-sulfate Lab Routine Female infertility PCOS (polycystic ovarian syndrome) Expected: 03/23/2025 (Approximate), Expires: 03/23/2026 [facility] Comment on above: Expected: 03/23/2025 (Approximate), Expires: 03/23/2026 Start: 03-23-2025 End: 03-23-2026 Follicle stimulating hormone Follicle stimulating hormone Lab Routine Female infertility PCOS (polycystic ovarian syndrome) Expected: 03/23/2025 (Approximate), Expires: 03/23/2026 [facility] Comment on above: Expected: 03/23/2025 (Approximate), Expires: 03/23/2026 Start: 03-23-2025 End: 03-23-2026 hCG, quantitative, hCG, quantitative, Lab Routine Female infertility PCOS (polycystic ovarian syndrome) Expected: 03/23/2025 (Approximate), Expires: 03/23/[address] [facility] Work Phone: Comment on above: Expected: 03/23/2025 [...] ovarian syndrome) Expected: 03/23/2025 (Approximate), Expires: 03/23/2026 [facility] Comment on above: Expected: 03/23/2025 (Approximate), Expires: 03/23/2026 Start: 03-23-2025 End: 03-23-2026 Thyrotropin [Units/volume] in Serum or Plasma TSH Lab Routine Female infertility PCOS (polycystic ovarian syndrome) Expected: 03/23/2025 (Approximate), Expires: 03/23/2026 [facility] Comment on above: Expected: 03/23/2025 (Approximate), Expires: 03/23/2026 Start: 03-23-2025 End: 03-23-2026 Thyroxine (T4) free [Mass/volume] in Serum or Plasma T4, free Lab Routine Female infertility PCOS (polycystic ovarian syndrome) Expected: 03/23/2025 (Approximate), Expires: 03/23/2026 [facility] Comment on above: Expected: 03/23/2025 (Approximate), Expires: 03/23/2026 Start: 03-23-2025 End: 03-23-2026 US Pelvis US Pelvis w/ TV Imaging Routine Female infertility PCOS (polycystic ovarian syndrome) Expected: 03/23/2025, Expires: 03/23/[address] [facility] Comment on above: Expected: 03/23/2025 , Expires: 03/23/2026 Start: 06-01-2024 Influenza vaccination Influenza Vacc ine (#1) [facility] Start: 09-15-2022 [facility] Start: 09-13-2022 Hospital admission [facility] Bacteria identified in Urine by Culture Urine culture Microbiology Routine Missed menses Ordered: 05/15/[address] [facility] Comment on above: Ordered: 05/15/2025 CBC W Auto Different ial panel - Blood CBC and differential Lab Routine Missed menses , unspecified gestational age ([facility]) Ordered: 05/15/[address] [facility] Comment on above: Ordered: 05/15/2025 CHLAMYDIA TRACHOMATI S (GENITO/STI) CHLAMYDIA TRACHOMATIS (GENITO/STI) Lab Routine Exposure to STD Ordered: 07/13/[address] [facility] Comment on above: Ordered: 07/13/2025 Cytology Cervical or vaginal smear or scraping study Pap Smear Pathology and Cytology Routine Well woman exam with routine gynecological exam Ordered: 07/13/[address] [facility] Comment on above: Ordered: 07/13/2025 hCG, quantitative, hCG, quantitative, Lab Routine Possible Amenorrhea Ordered: 04/19/[address] [facility] Comment on above: Ordered: 04/19/2025 hCG, serum, qualitative hCG, ser um, qualitative Lab Routine Possible Amenorrhea Ordered: 04/19/[address] [facility] Work Phone: Comment on above: Ordered: 04/19/2025 Hemoglobin A1c/Hemoglobin.total in Blood Hemoglobin A1c Lab Routine Missed menses , unspecified gestational age ([facility]) Ordered: 05/15/[address] [facility] Comment on above: Ordered: 05/15/2025 Hepatitis B virus surface Ag [Presence] in Serum or Plasma by Immunoassay Hepatitis B surface antigen Lab Routine Missed menses , unspecified gestational age ([facility]) Ordered: 05/15/[address] [facility] Comment on above: Ordered: 05/15/2025 Hepatitis C virus Ab [Presence] in Serum or Plasma by Immunoassay Hepatitis C antibody Lab Routine Missed menses , unspecified gestational age ([facility]) Ordered: 05/15/[address] [facility] Comment on above: Ordered: 05/15/2025 HIV-1/HIV-2 antigen/antibody combination immunoassay HIV-1 and HIV-2 antibodies Lab Routine Missed menses , unspecified gestational age ([facility]) Ordered: 05/15/[address] [facility] Comment on above: Ordered: 05/15/2025 Neisseria gonorrhoea e DNA [Presence] in Unspecified specimen by BERNARDINO with probe detection Neisseria gonorrhea DNA probe, direct Lab Routine Exposure to STD Ordered: 07/13/[address] [facility] Comment on above: Ordered: 07/13/2025 Patient Education Bipolar Disord er (DC) [facility] DC Instructions [facility] Work Phone: Patient referral [facility] Work Phone: Progesterone Progesterone Lab Routine Female infertility PCOS (polycystic ovarian syndrome) Ordered: 03/23/[address] [facility] Comment on above: Ordered: 03/23/2025 Reagin Ab [Presence] in Serum by RPR RPR Lab Routine Missed menses , unspecified gestational age ([facility]) Ordered: 05/15/[address] [facility] Comment on above: Ordered: 05/15/2025 Rubella antibody, IgG Rubella an tibody, IgG Lab Routine Missed menses , unspecified gestational age ([facility]) Ordered: 05/15/[address] [facility] Comment on above: Ordered: 05/15/2025 SURESWAB(R) ADVANCED VAGINITIS PLUS, TMA SURESWAB(R) ADVANCED VAGINITIS PLUS, TMA Pathology and Cytology Routine Exposure to STD Ordered: 07/13/[address] [facility] Work Phone: Comment on above: Ordered: 07/13/2025 US Pelvis transvaginal US OB tra nsvaginal Imaging Routine Missed menses Positive urine test ([facility]) 05/15/2025 10:06 AM EDT [facility] Immunizations Immunization Date Immunization Notes Care Provider Alexus stratton 07-27-2014 influenza virus vacc ine, unspecified formulation Breana Posada [employer] Work Phone: [facility] Payers Date Payer Category Payer Medicaid (Managed Care) [employer] [id number] 2023 Self-pay [id number] 2017 [facility] [id number] 2002 Unknown [id number] 2.16.840.1.954298.3.579.2. 593 2002 Unknown [id number] 2.16.840.1.146403.3.579.2. 593 2002 Unknown [id number] 2.16.840.1.365514.3.579.2. 593 2002 Unknown [id number] 2.16.840.1.014318.3.579.2. 593 2002 Unknown [id number] 2.16.840.1.065427.3.579.2. 1259 2002 Unknown [id number] 2.16.840.1.534473.3.579.2. 1259 2002 Unknown [id number] 2.16.840.1.184406.3.579.2. 1259 2002 Unknown [id number] 2.16.840.1.957157.3.579.2. 1259 2002 Unknown [id number] 2.16.840.1.253787.3.579.2. 1259 2002 Unknown [id number] 2.16.840.1.522259.3.579.2. 1259 2002 Unknown [id number] 2.16.840.1.305016.3.579.2. 1259 2002 Unknown [id number] 2.16.840.1.963426.3.579.2. 1259 1959 Medicaid [id number] Unknown [id number] [id number]. 531 Social History Date Type Detail Facility Start: 09-13-2022 Tobacco smoking stat [facility] Smoker (finding) [facility] Start: 2000 Sex Assigned At Female F [facility] Start: 04-05-2023 Tobacco smoking stat [facility] Never smoked tobacco [facility] Start: 04-05-2023 Tobacco use and exposure Smokeless tobacco non-user [facility] Start: 04-05-2023 End: 07-13-2025 Alcoholic beverage intake Lifetime non-drinker (finding) [facility] Start: 04-05-2023 End: 05-15-2025 History of Social function [facility] Start: 04-05-2023 End: 05-15-2025 Tobacco use panel [facility] Start: 2000 Sex assigned at Not on file [facility] Start: 04-10-2025 [facility] Start: 12-13-2022 Sex Female [facility] Goals Date Patient Goal Desired Activity /State Functional Status Date Assessment Result Facility 09-15-2022 Functional status Patient at Baseline [facility] Work Phone: Mental Status Date Assessment Result Facility 09-15-2022 Cognitive function Cognitive Sta tus Patient at Baseline [facility] Work Phone: Clinical Notes 09-13-2022 to 07-13-2025 Beata Greenberg MA - 07/13/2025 2:30 PM Priscilla Sutton LPN - 06/15/2025 10:40 AM EDTMcathleen Greenberg MA - 05/15/2025 10:00 AM Nan Cloud NP - 04/19/2025 9:30 AM EDT Note Date & Type Note Facility 07-13-2025 History of Presen t illness Narrative Reason for Appointment: Patient ID: Kay Tristan is a 25 y.o. female who presents for Routine Visit, Gynecologic Exam, and STI Screening Patient presents today for Annual Exam., STD Check., and Return OB appointment. MEDICATIONS Current Outpatient Medications Medication Instructions QUEtiapine (SEROQUEL) 50 mg, Oral, Nightly Zoloft 25 mg, Daily ALLERGIES Allergies[1] PROBLEMS Active Ambulatory Problems Diagnosis Date Noted Bipolar disorder ([facility]) 05/15/2025 Borderline personality disorder ([facility]) 05/15/2025 Resolved Ambulatory Problems Diagnosis Date Noted [...] nursing note reviewed. Exam conducted with a civil engineering manager present. Vitals: Estimated body mass index is 53.93 kg/m as calculated from the following: Height as of 03/23/25: 4' 11 . Weight as of this encounter: 267 lb. BP: 116/72 Patient's last menstrual period was 03/21/2025. ASSESSMENT & PLAN ICD-10-CM 1. Second trimester ([facility]) Z34.92 POCT urinalysis dipstick manually resulted 2. 15 weeks gestation of ([facility]) Z3A.15 3. Well woman exam with routine gynecological exam Z01.419 Pap Smear 4. Exposure to STD Z20.2 SURESWAB(R) ADVANCED VAGINITIS PLUS, TMA CHLAMYDIA TRACHOMATIS (GENITO/STI) Neisseria gonorrhea DNA probe, direct 5. Need for maternal serum alpha-protein (MSAFP) screening ([facility]) Z36.1 Alpha fetoprotein, maternal Alpha fetoprotein, maternal 6. Screening, , for anatomic survey ([facility]) Z36.89 US OB 14+ weeks anatomy scan [...] pertinent surgical history. documented in this encounter [facility] 06-15-2025 History of Presen t illness Narrative [...] nursing note reviewed. Exam conducted with a civil engineering manager present. Vitals: Estimated body mass index is 53 kg/m as calculated from the following: Height as of 03/23/25: 4' 11 . Weight as of this encounter: 262 lb 6.4 oz. BP: 118/70 Patient's last menstrual period was 03/21/2025. ASSESSMENT & PLAN ICD-10-CM 1. Second trimester ([facility]) Z34.92 POCT urinalysis dipstick manually resulted 2. First trimester ([facility]) Z34.91 POCT urinalysis dipstick manually resulted 3. 11 weeks gestation of ([facility]) Z3A.11 POCT urinalysis dipstick manually resulted Patient [...] Renee Diez DO documented in this encounter [facility] 05-15-2025 History of Presen t illness Narrative [...] urine test ([facility]) - OB transvaginal; Future Amenorrhea 7 weeks gestation of ([facility]) Bipolar affective disorder, remission status unspecified ([facility]) Borderline personality disorder (HCC) , unspecified gestational age ([facility]) - Type and screen; Future - ABO/Rh; Future - CBC and differential - Hemoglobin A1c - RPR - Rubella antibody, IgG - Hepatitis B surface antigen - Hepatitis C antibody - HIV-1 and HIV-2 antibodies - Rapid drug screen, urine; Future Encounter for supervision of normal first in first trimester ([facility]) - Rapid drug screen, urine; Future Nurse Note: Pt desires Carolina billion to one. Pt was advised she has to be 9 weeks gestation in order to have Carolina drawn along w/ labs. PVU. Pt is [...] Beata Greenberg MA documented in this encounter [facility] 04-19-2025 History of Presen t illness Narrative [...] Additional Comments: Want blood labs sent to [facility] ROS: A complete system ROS [...] PRN/gynecology if applicable. documented in this encounter [facility] 03-23-2025 History of Presen t illness Narrative [...] nursing note reviewed. Exam conducted with a civil engineering manager present. Vitals: Estimated body mass index is [...] Renee Diez DO documented in this encounter [facility] 09-09-2024 History of Presen t illness Narrative Images from the original note were not included. [address] , [address] [facility], [address] P: [phone] F: [phone] HPI Historian of HPI: patient Alexia Tristan [...] Left Turbinates: Enlarged and swollen. Mouth/Throat: Lips: [place]. Mouth: Mucous membranes are moist. Pharynx: Oropharynx [...] capsule; Refill: 0 documented in this encounter [facility] 09-15-2022 Discharge summary Note Date/Time September 15, 2022 10:25am [facility] [address] [place] [address] Discharge Summary Signed Patient: Kay Busch MR#: [id number] : 2000 Acct:[id number] Age/Sex: 22 / F Adm Date: 2 Loc: Room: [address] [place] [address]: Param Rao MD Copies to: [...] No activity restrictions. Instructions: Bipolar Disorder (DC), [facility] DC Instructions Stand Alone Forms: [...] [facility] [Outside] [facility] [Outside] ( import export manager: (Insert date/time here) Therapy:? (insert date/time [...] signed by Param Rao MD> 09/15/22 1037 [facility] Work Phone: 1(752) 802-595212-15-2022 Progress note Author Param Rao [facility] September 14, 2022 12:20pm Note Date/Time September 14, 2022 12:20pm [facility] [address] [place] [address] Psychiatry Progress Note Signed Patient: Kay Busch MR#: [id number] : 2000 Acct:[id number] Age/Sex: 22 / F Adm Date: 2 Loc: Room: [address] [place] [address] Type : ADM IN Attending Dr: Param [...] <Electronically signed by Param Rao MD> 09/14/22 385 [facility] Work Phone: 1(442) 406-627212-14-2022 History and physical note Author Param Rao [facility] September 13, 2022 12:48pm Note Date/Time September 13, 2022 12:48pm [facility] [address] [place] [address] Psychiatry H&P Signed Patient: Kay Busch MR#: [id number] : 2000 Acct:[id number] Age/Sex: 22 / F Adm Date: 2 Loc: Room: [address] [place] [address] Type: ADM IN Attending Dr: Param Rao [...] Param Rao MD> 09/13/22 1248 [facility] Work Phone: Evaluation note* Diagnosis Onset Date Resolution Status Bipolar disorder acute [facility] Work Phone: Evaluation note* Diagnosis Acute cough- [...] urine test ([facility]) Amenorrhea Absence of menstruation 7 weeks gestation of ([facility]) Bipolar affective disorder, remission status unspecified ([facility]) Borderline personality disorder (HCC) Borderline personality disorder , unspecified gestational age ([facility]) Encounter for supervision of normal first in first trimester ([facility]) [facility] Diagnosis Second trimester ([facility]) state, incidental First trimester ([facility]) state, incidental 11 weeks gestation of ([facility]) [facility] Diagnosis Tinea- Primary Dermatophytosis of unspecified site Second trimester ([facility]) state, incidental 15 weeks gestation of ([facility]) Well woman exam with routine gynecological exam Routine gynecological examination Exposure to STD Need for maternal serum alpha-protein (MSAFP) screening ([facility]) Screening, , for anatomic survey ([facility]) Encounter for anatomic survey [facility] Additional Instructions Regular diet. No activity restrictions.[facility] Work Phone: Chief Complaint and Reason for [...] Helio Florian MD Primary Care Provider Active Machine Sand Mixer Relationship Specialty Start Date End Date Helio Florian MD [address] [place] [address] PCP - General Family Medicine 04/05/23 Machine Sand Mixer Relationship Specialty Start Date End Date Helio Florian MD [address] [place] [address] PCP - General Family Medicine 04/05/23 Machine Sand Mixer Relationship Specialty Start Date End Date Helio Florian MD [address] [place] [address] PCP - General Family Medicine 04/05/23 Machine Sand Mixer Relationship Specialty Start Date End Date Helio Florian MD [address] [place] [address] PCP - General Family Medicine 04/05/23 Machine Sand Mixer Relationship Specialty Start Date End Date Helio Florian MD [address] [place] [address] PCP - General Family Medicine 04/05/23 Machine Sand Mixer Relationship Specialty Start Date End Date Helio Florian MD [address] [place] [phone] PCP - General Family [facility] 04/05/23 Breana Posada NP [address] [place] [address] PCP - [facility] 12/30/2408/30 Machine Sand Mixer Relationship Specialty Start Date End Date Helio Florian MD [address] [place] [phone] PCP - [facility] 04/05/23 Breana Posada NP [address] [place] [address] PCP - [facility] 12/30/2408/30 Machine Sand Mixer Relationship Specialty Start Date End Date Helio Florian MD [address] [place] [address] PCP - [facility] 04/05/23 Breana Posada NP [address] [place] [address] PCP - [facility] 12/30/2408/30 Machine Sand Mixer Relationship Specialty Start Date End Date Helio Florian MD [address] [place] [address] PCP - [facility] 04/05/23 Breana Posada NP [address] [place] [address] PCP - [facility] 12/30/2408/30 Machine Sand Mixer Relationship Specialty Start Date End Date Helio Florian MD [address] [place] [address] PCP - General Family [facility] 04/05/23 Breana Posada NP [address] [place] [address] PCP - [facility] 12/30/2408/30 Machine Sand Mixer Relationship Specialty Start Date End Date Helio Florian MD [address] [place] [address] PCP - General Family [facility] 04/05/23 Breana Posada NP [address] [place] [address] PCP - [facility] 12/30/2408/30 INFORMATION SOURCE (unrecogn ized section and content) DATE CREATED AUTHOR 09/21/2022 [facility] DATE CREATED AUTHOR AUTHOR'S ORGANIZ ATION 04/17/2025 [facility] DATE CREATED AUTHOR AUTHOR'S ORGANIZ ATION 07/14/2025 [facility] EPIC Reason for Visit (unrecogniz ed section and content) Reason Comments Infertility Reason Comments Amenorrhea Reason Comments Routine Visit Reason Comments Routine Visit Gynecologic Exam STI Screening FOR RECORDS PERTAINING TO PATIENTS WHO ARE [...] THE PRIMARY CLINICAL RECORDS. [facility] [employer] [facility]. provides no warranty or guarantee of the accuracy or completeness of information in this document.
--- OUTSIDE RECORDS SUMMARY | 2025-07-18 18:02 | XMS_ITS | Encounter Summary ---
Author Organization [facility] Address [address] [place] [address] Care Team Providers Care Gas Singer Name Role Phone Helio Campos MD Primary Care Provider Breana Loving PROFESSOR OF SPECIAL EDUCATION Unavailable [phone] Encounter Details Date Type Department Care Team (Late Contact Info) Description 07/13/2025 Abstract LEA NIELSEN [address] [place], [place] [address] [address] Cuong Diez DO [facility] [address] Deanna Jaramillo, [facility]11 Social History Tobacco Use Types Packs/Day [...] 10:00 AM EST Ancillary Procedure LEA NIELSEN [facility] [place] [address] 08/18/2025 11:10 AM EST Routine LEA NIELSEN [address] [place] [address] Cuong Diez, [address] [place] [address] documented as of this encounter Visit Diagnoses Not on filedocumented in this encounter Care Teams Gas Singer Relationship Specialty Start Date End Date Helio Campos MD [address] [place] [address] PCP - General Family Medicine 04/05/23 Breana Loving NP [address] [place], [place] [phone] [facility] 12/30/2408/30 documented as of this encounter
--- OUTSIDE RECORDS SUMMARY | 2025-07-18 18:02 | XMS_ITS | Encounter Summary ---
Author Organization [facility] Address [address] [place] [address] Care Team Providers Care Sock Lining Examiner Name Role Phone Helio Campos MD Primary Care Provider [phone] Breana Loving UNIT AIDE Unavailable [phone] Encounter Details Date Type Department Care Team (Late Contact Info) Description 06/09/2025 Abstract LEA NIELSEN [address] [place], [place] [address] [address] Cuong Diez DO [address] [place], [place] [address] Deanna Jaramillo, [facility]11 Social History Tobacco Use Types Packs/Day Years [...] 10:00 AM EST Ancillary Procedure LEA NIELSEN [facility] [place] [address] 08/18/2025 11:10 AM EST Routine LEA NIELSEN [address] [place] [address] Cuong Diez, [address] [place] [address] documented as of this encounter Visit Diagnoses Not on filedocumented in this encounter Care Teams Sock Lining Examiner Relationship Specialty Start Date End Date Helio Campos MD [address] [place] [address] PCP - General Family Medicine 04/05/23 Breana Loving NP [address] [place], [place] [phone] [facility] 12/30/2408/30 documented as of this encounter
--- OUTSIDE RECORDS SUMMARY | 2025-07-18 18:02 | XMS_ITS | Encounter Summary ---
Author Organization [facility] Address [address] [place] [address] Care Team Providers Care Power Driven Brush Maker Name Role Phone Helio Campos MD Primary Care Provider [phone] Breana Loving AMMONIA PRINT OPERATOR Unavailable [phone] Encounter Details Date Type Department Care Team (Late Contact Info) Description 06/12/2025 Abstract LEA NIELSEN [address] [place], [place] [address] [address] Cuong Diez DO [facility] [address] Deanna Jaramillo, [facility]11 Social History Tobacco Use Types Packs/Day [...] 10:00 AM EST Ancillary Procedure LEA NIELSEN [facility] [place] [address] 08/18/2025 11:10 AM EST Routine LEA NIELSEN [address] [place] [address] Cuong Diez, [address] [place] [address] documented as of this encounter Visit Diagnoses Not on filedocumented in this encounter Care Teams Power Driven Brush Maker Relationship Specialty Start Date End Date Helio Campos MD [address] [place] [address] PCP - General Family Medicine 04/05/23 Breana Loving NP [address] [place], [place] [phone] [facility] - [facility] 12/30/2408/30 documented as of this encounter
--- OUTSIDE RECORDS SUMMARY | 2025-07-18 18:02 | XMS_ITS | Encounter Summary ---
Author Organization [facility] Address [address] [place] [address] Care Team Providers Care Saw Maker Name Role Phone Helio Campos MD Primary Care Provider [phone] Breana Loving DIRECTOR OF COMMUNICATIONS Unavailable [phone] Encounter Details Date Type Department Care Team (Late Contact Info) Description 07/13/2025 Bamboo flowsheet LEA NIELSEN [facility] [place] [address] Betsy Tate PA [address] [place] [address] Dr [place], [place] [address] Social History Tobacco Use Types Packs/Day Years [...] 10:00 AM EST Ancillary Procedure LEA NIELSEN [facility] [place] [address] 08/18/2025 11:10 AM EST Routine LEA NIELSEN [facility] [place] [address] Cuong Diez, [address] [place] [address] documented as of this encounter Visit Diagnoses Not on filedocumented in this encounter Care Teams Saw Maker Relationship Specialty Start Date End Date Helio Campos MD [address] [place] [address] PCP - General Family Medicine 04/05/23 Breana Loving NP [address] [place], [place] [phone] PCP - [facility] 12/30/2408/30 documented as of this encounter
--- OUTSIDE RECORDS SUMMARY | 2025-07-18 18:02 | XMS_ITS | Encounter Summary ---
Author Organization [facility] Address [address] [place] [address] Care Team Providers Care Textile Science Technician Name Role Phone Helio Campos MD Primary Care Provider [phone] Breana Loving TAMALE MAKER Unavailable [phone] Encounter Details Date Type Department Care Team (Late Contact Info) Description 06/12/2025 Abstract LEA NIELSEN [address] [place], [place] [address] [address] Cuong Diez DO [facility] [address] Deanna Jaramillo, [facility]11 Social History Tobacco Use Types Packs/Day Years [...] LEA NIELSEN [facility] [place] [address] 08/18/2025 11:10 AM EST Routine LEA NIELSEN [address] [place] [address] Cuong Diez, [address] [place] [address] documented as of this encounter Visit Diagnoses Not on filedocumented in this encounter Care Teams Textile Science Technician Relationship Specialty Start Date End Date Helio Campos MD [address] [place] [address] PCP - General Family Medicine 04/05/23 Breana Loving NP [address] [place], [place] [phone] [facility] - [facility] 12/30/2408/30 documented as of this encounter
--- OUTSIDE RECORDS SUMMARY | 2025-07-18 18:02 | XMS_ITS | Clinical Summary ---
Author Organization Contact At Once! tem Address [id number] [address] [place] [address] Care Team Providers Care Program Director/Traffic Director Name Role Phone Helio Campos MD Primary Care Provider [phone] Allergies No known active allergies Medications testosterone [...] file Insurance [employer] Care Teams Program Director/Traffic Director Relationship Specialty Start Date End Date Helio Campos MD PCP - General Family Medicine 04/04/23
--- OUTSIDE RECORDS SUMMARY | 2025-07-18 18:02 | XMS_ITS | Clinical Summary ---
Author Organization [facility] Address [address] [place] [address] Care Team Providers Care Soft Metals Hand Engraver Name Role Phone Helio Campos MD Primary Care Provider [phone] Arnaud Lovingsavish Gill CNC FIELD SERVICE ENGINEER Unavailable [phone] Allergies No known active allergies Medications Zoloft 25 MG tablet Take 25 mg by mouth Daily 5 Active QUEtiapine (SEROquel) 25 MG tablet Take 50 mg by mouth at bedtime 5 Active nystatin (Mycostatin) 477095 UNIT/GM powderIndicatio ns:Tinea Apply topically in the morning and in the evening and before bedtime. 15 g 5 07/13/20 26 Active metroNIDAZOLE (Flagyl) 500 MG tabletIndicatio ns:BV (bacterial vaginosis) Take 1 tablet (500 mg) by mouth in the morning and 1 tablet (500 mg) before bedtime. Do all this for 7 days. Do not drink alcohol while taking this medication. 14 tablet 5 07/21/20 25 Active Active Problems Problem Noted Date Diagnosed Date Bipolar disorder 05/15/2025 Borderline personality disorder 05/15/2025 Estimated Date of Delivery Comme nts Yes 01/01/2026 Based on Ultraso und Encounters Date Type Department Care Team Description 07/14/2025 Patient Outreach [facility] [address] [place] [address] Betsy Babcock LPN 07/14/2025 Telephone [facility] OBPILI [address] [facility] [place] [address] Betsy Tate PA 07/13/2025 2:30 PM EDT Routine [facility] Ella ENNISGYN [address] [facility] [address] Betsy Tate PA Tinea (Primary Dx); Second trimester ([facility]); 15 weeks gestation of ([facility]); Well woman exam with routine gynecological exam; Exposure to STD; Need for maternal serum alpha-protein (MSAFP) screening ([facility]); Screening, , for anatomic survey ([facility]) 07/13/2025 External Result Encounter [facility]OM[facility] External Department Unsolicited Betsy Tate PA 07/13/2025 Abstract [facility] Ella NIELSEN [address] [place] [address] [place] [address] Cuong Diez DO 07/13/2025 Bamboo flowsheet [facility] Ella NIELSEN [address] [place] [address] [place] [address] Betsy Tate PA 07/10/2025 Abstract [facility] [address] [place] [address] Betsy Babcock LPN 07/08/2025 Telephone [facility] Ella NIELSEN [address] [place] [address] Beata Greenberg MA 07/06/2025 Telephone [facility] OBGYN [address] [facility] [place] [address] Beata Greenberg MA 06/15/2025 10:40 AM EDT Routine [facility] Ella ENNISGYN [address] [facility] [address] Cuong Diez DO Second trimester ([facility]); First trimester ([facility]); 11 weeks gestation of ([facility]) 06/15/2025 Bamboo flowsheet [facility] Ella ENNISGYJairo [address] [place] [address] Cuong Diez, DO 06/12/2025 Abstract [facility] [address] [place] [address] [place] [address] Cuong Diez, DO 06/12/2025 Abstract [facility] [address] [place] [address] [place] [address] [phone] Cuong Diez, DO 06/09/2025 Abstract [facility] [place] [facility] [address] [place] [address] [place] [address] Cuong Diez, DO 05/29/2025 Clinisync Result Encounter NOMS External Department Unsolicited Columba Temple NP 05/15/2025 10:00 AM EDT Initial [facility] Ella ENNISGYJairo [address] [place] [address] [place] [address] [place]: [id number] 05/15/2025 9:30 AM EDT Ancillary Procedure [facility] OBGYN [address] [facility] [place] [address] Missed menses; Positive urine test ([facility]) 04/23/2025 Clinisync Result Encounter [facility]OMS External Department Unsolicited Cuong Diez, DO 04/21/2025 Clinisync Result Encounter [facility]OMS External Department Unsolicited Cuong Diez, DO 04/20/2025 Telephone [facility] [address] [place] [address] [place] [address] Beata Greenberg MA 04/19/2025 9:30 AM EDT Office Visit [facility] [place] [facility] [address] [place] [address] Monty Lemons, Betsy Tobar NP Possible (Primary [...] AM EST Ancillary Procedure [facility] Ella NIELSEN [address] [place] [address] [place] [address] 08/18/2025 11:10 AM EST Routine NOMOsiel NIELSEN [address] [place] [address] [place] [address] Cuong Diez DO [address] [place] [address] [place] [address] Health Maintenance Due Date Last Done Comments Influenza Vaccine (#1) 2025 4, 06/13/2013, 07/25/2012, Additional history exists Procedures Procedure Name Priority Date/Time Associated Diagnosis Comments CULTURE, URINE, ROUTINE Routine 07/14/2025 9:04 AM EDT Missed menses RECURRENT VAGINITIS (HTRX) Routine 07/13/2025 3:44 PM EDT POCT URINALYSIS DIPSTICK Routine 07/13/2025 3:16 PM EDT Second trimester ([facility]) POCT URINALYSIS DIPSTICK Routine 06/15/2025 11:00 AM EDT Second trimester ([facility]) First trimester ([facility]) 11 weeks gestation of ([facility]) HBSAG SCREEN Routine 05/29/2025 1:30 PM EDT [...] AM EDT Missed menses Positive urine test ([facility]) [facility] PREG QUANT HCG Routine 04/23/2025 10 :09 AM EDT [facility] PREG QUANT HCG Routine 04/21/2025 10 :18 AM EDT POCT , URINE Routine 04/19/2025 9:52 AM EDT Possible from Last 3 Months Results * Urine culture (07/14/2025 9:04 AM EDT) Urine Urine specimen obtained by clean catch procedure / Unknown us Cuong Diez DO LAB MICROBIOLOGY - GENERAL ORDER SAURAV Final Result EXTERNAL LAB * (ABNORMAL) RECURRENT VAGINITIS (HTRX) (07/13/2025 3:44 PM EDT) ATOPOBIUM VAGINAE 0 19.961 - 24.689 ppm 07/14/2025 5:34 AM EDT [facility] ATOPOBIUM VAGINAE Not Detected 19.961 - 24.689 ppm 07/14/2025 5:34 AM EDT [facility] BVAB 2,3 (BACTERIAL VAGINOSIS ASSOCIATED BACTERIA 2, 3); MOBILUNCUS SPP 26.603(A) 19.961 - 24.689 ppm 07/14/2025 5:34 AM EDT [facility] BVAB 2,3 (BACTERIAL VAGINOSIS ASSOCIATED BACTERIA 2, 3); MOBILUNCUS SPP Detected(A) 19.961 - 24.689 ppm 07/14/2025 5:34 AM EDT [facility] ELYSE ALBICANS, PARAPSILOSIS, TROPICALIS 0 23.000 - 30.347 ppm 07/14/2025 5:34 AM EDT [facility] ELYSE ALBICANS, PARAPSILOSIS, TROPICALIS Not Detected 23.000 - 30.347 ppm 07/14/2025 5:34 AM EDT [facility] ELYSE GLABRATA 0 23.000 - 31.618 ppm 07/14/2025 5:34 AM EDT [facility] ELYSE GLABRATA Not Detected 23.000 - 31.618 ppm 07/14/2025 5:34 AM EDT [facility] ELYSE KRUSEI 0 23.000 - 30.873 ppm 07/14/2025 5:34 AM EDT [facility] ELYSE KRUSEI Not Detected 23.000 - 30.873 ppm 07/14/2025 5:34 AM EDT [facility] CHLAMYDIA TRACHOMATIS 0 23.000 - 31.586 ppm 07/14/2025 5:34 AM EDT [facility] CHLAMYDIA TRACHOMATIS Not Detected 23.000 - 31.586 ppm 07/14/2025 5:34 AM EDT [facility] GARDNERELLA VAGINALIS 0 19.961 - 24.689 ppm 07/14/2025 5:34 AM EDT [facility] GARDNERELLA VAGINALIS Not Detected 19.961 - 24.689 ppm 07/14/2025 5:34 AM EDT [facility] MEGASPHAERA (TYPES 1, 2) 0 19.961 - 24.689 ppm 07/14/2025 5:34 AM EDT [facility] MEGASPHAERA (TYPES 1, 2) Not Detected 19.961 - 24.689 ppm 07/14/2025 5:34 AM EDT [facility] NEISSERIA GONORRHOEAE 0 23.000 - 32.587 ppm 07/14/2025 5:34 AM EDT [facility] NEISSERIA GONORRHOEAE Not Detected 23.000 - 32.587 ppm 07/14/2025 5:34 AM EDT [facility] TRICHOMONAS VAGINALIS 0 23.000 - 31.995 ppm 07/14/2025 5:34 AM EDT [facility] TRICHOMONAS VAGINALIS Not Detected 23.000 - 31.995 ppm 07/14/2025 5:34 AM EDT [facility] MYCOPLASMA GENITALIUM 0 19.961 - 24.689 ppm 07/14/2025 5:34 AM EDT [facility] MYCOPLASMA GENITALIUM Not Detected 19.961 - 24.689 ppm 07/14/2025 5:34 AM EDT [facility] MYCOPLASMA HOMINIS 0 19.961 - 24.689 ppm 07/14/2025 5:34 AM EDT [facility] MYCOPLASMA HOMINIS Not Detected 19.961 - 24.689 ppm 07/14/2025 5:34 AM EDT [facility] UREAPLASMA UREALYTICUM 0 19.961 - 24.689 ppm 07/14/2025 5:34 AM EDT [facility] UREAPLASMA UREALYTICUM Not Detected 19.961 - 24.689 ppm 07/14/2025 5:34 AM EDT [facility] UREAPLASMA PARVUM 0 19.961 - 24.689 ppm 07/14/2025 5:34 AM EDT [facility] UREAPLASMA PARVUM Not Detected 19.961 - 24.689 ppm 07/14/2025 5:34 AM EDT [facility] Tissue 07/13/2025 3:44 PM EDT 07/14/2025 1:52 AM EDT us Betsy JUÁREZ LAB BLOOD ORDERABLES Final Resul t [facility] [address] [address] * POCT urinalysis dipstick manually resulted (07/13/2025 [...] 1:30 PM EDT) BOX TEST SENT OUT [facility] BOX1 [facility] BOX2 05/29/25 [facility] 05/29/2025 1:30 PM EDT 05/29/2025 1:38 PM EDT Narrative [facility] - 05/29/2025 1:47 PM EDT Columba Temple CNC FIELD SERVICE ENGINEER LAB BLOOD ORDERABLES Final Re sult [facility] * HBSAG SCREEN (05/29/2025 1:30 PM EDT) HBSAG SCREEN Negative Negative [facility] Comment: Performed at: - Lab[address] [id number] Cake Decorator: Ilya Manjarrez PhD, Phone: [phone] 05/29/2025 1:30 PM EDT 05/29/2025 1:38 PM EDT Narrative [facility] - 05/30/2025 12:08 PM EDT Cuong Chary DO LAB BLOOD ORDERABLES Final Resul t Performing Organization Address [facility]/ZIP Co de Phone Number [facility] * RAPID PLASMA REAGIN, QUANT (05/29/2025 1:30 PM EDT) Pathologist [facility] RAPID PLASMA REAGIN, QUANT Non Reactive NonRea<1: 1 titer [facility] Comment: Please Note: This test does not meet current guidelines for screening and diagnosis of syphilis. This test is intended for following treatment response in patients being treated for syphilis infection. To screen for syphilis infection, a reflex cascade that includes both RPR and a treponema-specific assay should be utilized, such as Treponema pallidum (Syphilis) Screening [place] (938470) or Rapid Plasma Reagin (RPR) Test With Reflex to Quantitative RPR and Confirmatory Treponema pallidum Antibodies (324164). Performed at: [facility] [id number] Cake Decorator: Ilya Manjarrez PhD, Phone: [phone] 05/29/2025 1:30 PM EDT 05/29/2025 1:38 PM EDT Narrative [facility] - 05/30/2025 12:08 PM EDT Cuong Chary DO LAB BLOOD ORDERABLES Final Resul t Performing Organization Address [facility] Co de Phone Number [facility] * HIV AB/P24 AG WITH REFLEX (05/29/2025 1:30 PM EDT) [facility] HIV AB/P24 AG SCREEN Non Reactive Non Reactive [facility] Comment: HIV-1/HIV-2 antibodies and HIV-1 p24 antigen were NOT detected. There is no laboratory evidence of HIV infection. HIV Negative Performed at: [facility] [id number] Cake Decorator: Ilya Manjarrez PhD, Phone: [phone] 05/29/2025 1:30 PM EDT 05/29/2025 1:38 PM EDT Narrative [facility] - 05/30/2025 4:07 AM EDT [facility] DO LAB BLOOD ORDERABLES Final Resul t Performing Organization Address City/[facility] Co de Phone Number [facility] * HCV ANTIBODY RFX TO QUANT PCR (05/29/2025 1:30 PM EDT) [facility] HCV AB Non Reactive Non Reactive [facility] INTERPRETATION: Comment . [facility] Comment: Not infected with HCV unless early or acute infection is suspected (which may be delayed in an immunocompromised individual), or other evidence exists to indicate HCV infection. Performed at: [facility] [address] [id number] Cake Decorator: Ilya Manjarrez PhD, Phone: [phone] 05/29/2025 1:30 PM EDT 05/29/2025 1:38 PM EDT Narrative [facility] - 05/30/2025 7:09 AM EDT [facility] LAB BLOOD ORDERABLES Final Resul t Performing Organization Address [facility] de Phone Number [facility] * MLR HEMOGLOBIN A1C (05/29/2025 1:30 PM EDT) [facility] GLYCOHEMOGLOBIN A1C 4.9 4.5 - 6.2 % [facility] Comment: ADA RECOMMENDED LIMIT 4.0 - 6.0 ADA THERAPEUTIC TARGET < 7.0 ACTION SUGGESTED > 7.0 ESTIMATED AVERAGE GLUCOSE 94 mg/dL [facility] 05/29/2025 1:30 PM EDT 05/29/2025 1:38 PM EDT Narrative [facility] - 05/29/2025 2:52 PM EDT [facility] DO CLINISYIL Final Result Performing Organization Address [facility] Co de Phone Number [facility] * HMHP ANTIBODY ID (05/29/2025 1:30 PM EDT) [facility] TB ANTIBODY ID PANEL D RHIG [facility] Comment: PROBABLE ANTI-D DUE TO RHIG ADMINISTRATION ON 05/14/25. FURTHER WORKUP AT [employer] REQUEST. 05/29/2025 1:30 PM EDT 05/29/2025 1:38 PM EDT Narrative [facility] - 05/29/2025 2:38 PM EDT [facility] , Cuong Chary DO CLINISYNC Final Result Performing Organization Address City/[facility]/ZIP Co de Phone Number [facility] * ALL TYPE AND SCREEN (05/29/2025 1:30 PM EDT) Pathologist [facility] BLOOD TYPE B Negative [facility] ANTIBODY SCREEN POSITIVE [facility] 05/29/2025 1:30 PM EDT 05/29/2025 1:38 PM EDT Narrative [facility] - 05/29/2025 2:38 PM EDT [facility] , Cuong Chary DO CLINISYNC Final Result Performing Organization Address [facility]/ZIP Co de Phone Number [facility] * ALL RUBELLA IGG AB (05/29/2025 1:30 PM EDT) Pathologist [facility] RUBELLA ANTIBODIES, IGG 1.03 Immune >0.99 index [facility] Comment: Non-immune <0.90 Equivocal 0.90 - 0.99 Immune >0.99 Performed at: [address] [id number] Cake Decorator: Ilya Manjarrez PhD, Phone: [phone] 05/29/2025 1:30 PM EDT 05/29/2025 1:38 PM EDT Narrative [facility] - 05/30/2025 7:09 AM EDT Cuong Chary DO CLINISYNC Final Result Performing Organization Address City/[facility]/ZIP Co de Phone Number [facility] * (ABNORMAL) ALL CBC WITH AUTO DIFF (05/29/2025 1:30 PM EDT) Pathologist [facility] WBC 11.3(H) 4.0 - 11.0 10 [...] - 05/29/2025 1:54 PM EDT us Cuong Chary DO CLINISYNC Final Result [facility] * (ABNORMAL) TB DRUG SCREEN RAPID (URINE) [...] PM EDT 05/29/2025 1:38 PM EDT Narrative [facility] - 05/29/2025 2:02 PM EDT us Cuong Chary DO CLINISYNC Final Result Performing Organization Address [facility] Co de Phone Number [facility] * CANNABINOID CONF, MS, UR (05/29/2025 12:58 PM EDT) CANNABINOID POSITIVE TB CARBOXY THC CONF, MS, UR >750 ng/mL [facility] Comment:Cutoff = 10 05/29/2025 12:5 8 PM EDT 05/29/2025 2:04 PM EDT Narrative [facility] - 06/04/2025 3:45 PM EDT Cuong Chary DO LAB BLOOD ORDERABLES Final Resul t [facility] * ALL MISCELLANEOUS TEST (05/29/2025 12:58 PM EDT) MISCELLANEOUS TEST COMMENT . [facility] Comment: Test Ordered: [id number] Tricyclic Antidepressant Conf Tricyclic Antidep Negative ng/mL UI Reference Range: [id number] Confirmation performed by Mass Spectrometry Please Note: Comment UI Reference Range: . Drug test results should be interpreted in the context of clinical information. Patient metabolic variables, specific drug chemistry, and specimen characteristics can affect test outcome. Technical consultation is available if a test result is inconsistent with an expected outcome. Email: [email or web address] Performed at: [facility] [id number] Cake Decorator: Ijeoma Lino PhD, Phone: [phone] Performed at: [facility] [address] [id number] Cake Decorator: Ilya Manjarrez PhD, Phone: [phone] 05/29/2025 12:5 8 PM EDT 05/29/2025 2:05 PM EDT Narrative [facility] - 06/03/2025 5:08 AM EDT [id number] Tricyclic Antidepressants Confirmation, Urine Cuong Chary DO [facility] Final Result [facility] * (ABNORMAL) POCT , urine manually [...] Narrative [facility] - 04/23/2025 11:21 AM EDT us Cuong Chary DO CLINISYNC Final Result [facility] from Last 3 Months Insurance [employer] Care Teams Soft Metals Hand Engraver Relationship Specialty Start Date End Date Helio Campos MD [address] [place] [address] PCP - General Family Medicine 04/05/23 Breana Loving NP [address] [place] [address] PCP - [facility] 12/30/2408/30
--- OUTSIDE RECORDS SUMMARY | 2025-07-18 18:02 | XMS_ITS | Encounter Summary ---
Author Organization [facility] Address [address] [place] [address] Care Team Providers Care Reverse Engineer Name Role Phone Helio Campos MD Primary Care Provider [phone] Breana Loving ACOUSTIC INTELLIGENCE SPECIALIST Unavailable [phone] Encounter Details Date Type Department Care Team (Late st Contact Info) Description 07/10/2025 Abstract [facility] [address] [place] [id number] Betsy Babcock, CHANELLE [address] [place] [address] Social History Tobacco Use Types Packs/Day Years [...] Ancillary Procedure [facility]A [address] [place] [address] 08/18/2025 11:10 AM EST Routine [facility] [address]EL[address]EN [address] [place] [address] Chary, Cuong, [address] [place] [address] documented as of this encounter Visit Diagnoses Not on filedocumented in this encounter Care Teams Reverse Engineer Relationship Specialty Start Date End Date Helio Campos MD [address] [place] [address] PCP - General Family Medicine 04/05/23 Breana Loving, RADHA [address] [place] [address] PCP - [facility] 12/30/2408/30 documented as of this encounter
--- OUTSIDE RECORDS SUMMARY | 2025-07-18 18:03 | XMS_ITS | Encounter Summary ---
Author Organization [facility] Address [address] [place] [place] [address] Care Team Providers Care Business Management Manager Name Role Phone Helio Campos MD Primary Care Provider [phone] Breana Loving REFRACTORY REPAIRER Unavailable [phone] Encounter Details Date Type Department Care Team (Late st Contact Info) Description 07/08/2025 Telephone [facility] [address] [place] [phone] [place]en [place], [place] [address] [place] [address] Social History Tobacco Use Types Packs/Day Years [...] Miscellaneous Notes * Telephone Encounter - Izabela Wood LPN - 07/13/2025 3:06 PM EDT Reviewed fax that [facility] wanted him to review in regards to medication and he states that patient is able to take the Hydoxyzine and [facility] [...] Procedure [facility] [address] [place] [address] 08/18/2025 11:10 AM EST Routine [facility] [address] [place] [address] Cuong Diez DO [address] [place] [address] documented as of this encounter Visit Diagnoses Not on filedocumented in this encounter Care Teams Business Management Manager Relationship Specialty Start Date End Date Helio Campos MD [address] [place] [address] PCP - General Family Medicine 04/05/23 Breana Loving NP [address] [place] [address] PCP - [facility] 12/30/2408/30 documented as of this encounter
--- OUTSIDE RECORDS SUMMARY | 2025-07-18 18:03 | XMS_ITS ---
Author Organization [facility] Address [address] [place] [address] Care Team Providers Care Leverman Name Role Phone Helio Campos MD Primary Care Provider [phone] Breana Loving TECHNICAL SALES ADVISOR Unavailable [phone] [facility] Status:Enrolled (Active) Start date:07/10/2025 Enrollment date:07/14/2025 Enrollment reason:Identified by Health Plan Case Team Name Relationship Phone Betsy Babcock LPN(Responsible Staff) [facility] [phone] Continued Care and Services Coordination
--- OUTSIDE RECORDS SUMMARY | 2025-07-18 18:03 | XMS_ITS | Encounter Summary ---
Author Organization [facility] Address [address] [place] [address] Care Team Providers Care Printing Pressman Name Role Phone Helio Campos MD Primary Care Provider [phone] Breana Loving CARTOONIST SPECIAL EFFECTS Unavailable [phone] Encounter Details Date Type Department Care Team (Late Contact Info) Description 07/14/2025 Telephone [facility] [address] [place] [address] Betsy Tate PA [address] [place], [facility] Social History Tobacco Use Types [...] Telephone Encounter - Izabela Wood LPN - 07/14/2025 8:20 AM EDT Patient was called and made aware results show BV and a script would be sent into pharmacy for her.PVU documented in this encounter Plan of Treatment Upcoming Encounters Date Type Department Care Team (Late Contact Info) Description 08/18/2025 10:00 AM EST Ancillary Procedure [facility]BG[facility] [address] [place] [phone] 08/18/2025 11:10 AM EST Routine [facility] ENNISGYN [address] [place] [phone] Cuong Diez DO [address] [facility] [address] [place], [place] [phone] documented as of this encounter Visit Diagnoses Diagnosis BV (bacterial vaginosis) Unspecified vaginitis and vulvovaginitis documented in this encounter Care Teams Printing Pressman Relationship Specialty Start Date End Date Helio Campos MD [address] [place] [address] PCP - General Family Medicine 04/05/23 Breana Loving NP [address] [place] [address] PCP - [facility] 12/30/2408/30 documented as of this encounter
--- OUTSIDE RECORDS SUMMARY | 2025-07-18 18:03 | XMS_ITS | Patient Health Record ---
Author Organization [facility] in [place] Address [address] [place] [address] Care Team Providers Care Shank Stapler Name Role Phone DeoAnnamaria degrootela Primary Care Provider [phone] Allergies No Known Allergies Results Component Value Reference Range Notes PREG QUANT HCG Reviewed date:02/16/2025 01:54:56 PM Interpretation: Performing Lab: Notes/Report: [facility] , HCG Quantitative <1 5-50 0.2-1 WEEK 50-500 1-2 WEEKS 100-5,000 2-3 WEEKS 500-10,000 3-4 WEEKS 1,000-50,000 4-5 WEEKS 10,000-100,000 5-6 WEEKS 15,000-200,000 6-8 WEEKS 10,000-100,000 2-3 MONTHS Performing Lab: see note ML - [facility] LB PROF 14(COMP METB) Reviewed date:02/16/2025 01:54:56 PM Interpretation: Performing Lab: Notes/Report: [facility] , Sodium 140 136-145 mmol/L Potassium 3.9 [...] Globulin Ratio 0.9 Performing Lab: see note [facility] TSH Reviewed date:02/16/2025 01:54:56 PM Interpretation: Performing Lab: Notes/Report: [facility] , Thyroid Stimulating Hormone 3.202 0.358-3.740 uIU/mL Performing Lab: see note [facility] GLYCOHEMOGLOBIN A1C Reviewed date:03/24/2025 02:44:38 PM Interpretation: Performing Lab: Notes/Report: [facility] , Glycohemoglobin A1C 5.3 4.5-6.2 % ADA RECOMMENDED LIMIT 4.0 - 6.0 ADA THERAPEUTIC TARGET < 7.0 ACTION SUGGESTED > 7.0 Estimated Average Glucose 105 Performing Lab: see note [facility] DHEA, Serum Reviewed date:03/29/2025 01:16:45 PM Interpretation: Performing Lab: Notes/Report: nAnie DHEA, Serum 279 31-701 ng/dL This test was developed and its performance characteristics determined by [facility]. It has not been cleared or approved by the Food and Drug Administration. Performed at: [address] [id number] Feeder/Folder: Tiara Merchant MD, Phone: [phone] Performing Lab: see note [facility] LB Luteinizing Hormone(LH) Reviewed date:03/25/2025 05:44:37 PM Interpretation: Performing Lab: Notes/Report: [facility] , Luteinizing Hormone(LH) 4.4 . mIU/mL Adult Female Range Follicular phase 2.4 - 12.6 Ovulation phase 14.0 - 95.6 Luteal phase 1.0 - 11.4 Postmenopausal 7.7 - 58.5 Performing Lab: see note [facility] FSH Reviewed date:03/25/2025 05:44:37 PM Interpretation: Performing Lab: Notes/Report: [facility] , FSH 9.3 . mIU/mL Adult Female Range Follicular phase 3.5 - 12.5 Ovulation phase 4.7 - 21.5 Luteal phase 1.7 - 7.7 Postmenopausal 25.8 - 134.8 Performed at: [facility] [address] [id number] Feeder/Folder: Ilya Manjarrez PhD, Phone: [phone] Performing Lab: see note - [facility] LB DHEA-Sulfate Reviewed date:03/25/2025 05:44:37 PM Interpretation: Performing Lab: Notes/Report: [facility] , DHEA-Sulfate 386.0 110.0-431.7 ug/dL Performing Lab: see note [facility] LB Anti-Mullerian Hormone (AMH) Reviewed date:03/29/2025 01:16:45 PM Interpretation: Performing Lab: Notes/Report: [facility] , Anti-Mullerian Hormone (AMH) 0.939 . ng/mL For assays employing antibodies, the possibility exists for interference by heterophile antibodies in the samples.1 1.Jayant George Interferences in Immunoassays - still a threat. Clin. Chem. 2000; 46: 7616-7268. This test was developed and its performance characteristics determined by [employer]. It has not been cleared or approved by the Food and Drug Administration. Reference Range: Females 20 - 25y: 1.23 - 11.51 Median 4.70 AMH concentrations of >= 1.06 ng/mL is correlated with a better response to ovarian stimulation, produced more retrievable oocytes and higher odds of live according to Gleicher et al. Fertility and Sterility. 2010: 94:7350-6045. The current AMH test method correlates with [...] exclude an AMH-secreting ovarian tumor. Performed at: [facility] [address] [place] [id number] Feeder/Folder: Rogelio Salmon MD, Phone: [phone] Performing Lab: see note - [facility] LB Progesterone Reviewed date:04/13/2025 08:29:18 AM Interpretation: Performing Lab: Notes/Report: [facility] , Progesterone 9.5 . ng/mL Follicular phase 0.1 - 0.9 Luteal phase 1.8 - 23.9 Ovulation phase 0.1 - 12.0 First trimester 11.0 - 44.3 Second trimester 25.4 - 83.3 Third trimester 58.7 - 214.0 Postmenopausal 0.0 - 0.1 Performed at: [address] [id number] Feeder/Folder: Ilya Manjarrez PhD, Phone: [phone] Performing Lab: see note [facility] LB PREG QUANT HCG Reviewed date:04/20/2025 04:55:30 PM Interpretation: Performing Lab: Notes/Report: [facility] , HCG Quantitative 29 5-50 0.2-1 WEEK 50-500 1-2 WEEKS 100-5,000 2-3 WEEKS 500-10,000 3-4 WEEKS 1,000-50,000 4-5 WEEKS 10,000-100,000 5-6 WEEKS 15,000-200,000 6-8 WEEKS 10,000-100,000 2-3 MONTHS Performing Lab: see note ML - [facility] LB HCG Qualitative* Reviewed date:04/20/2025 04:55:30 PM Interpretation: Performing Lab: Notes/Report: [facility] , HCG Qualitative POSITIVE NEGATIVE Performing Lab: see note ML - [facility] LB PREG QUANT HCG Reviewed date:04/21/2025 10:56:49 AM Interpretation: Performing Lab: Notes/Report: [facility] , HCG Quantitative 97 5-50 0.2-1 WEEK 50-500 1-2 WEEKS 100-5,000 2-3 WEEKS 500-10,000 3-4 WEEKS 1,000-50,000 4-5 WEEKS 10,000-100,000 5-6 WEEKS 15,000-200,000 6-8 WEEKS 10,000-100,000 2-3 MONTHS Performing Lab: see note ML - [facility] ANTIBODY ID PANEL Reviewed date:05/29/2025 02:51:20 PM Interpretation: Performing Lab: Notes/Report: [facility] , Antibody Identification D RHIG PROBABLE ANTI-D DUE TO RHIG ADMINISTRATION ON 05/14/25. FURTHER WORKUP AT [employer] REQUEST. CBC AUTO DIFF Reviewed date:05/29/2025 02:19:28 PM Interpretation: Performing Lab: Notes/Report: [facility] , White Blood Count 11.3 4.0-11.0 10 [...] Performing Lab: see note ML - [facility] LB GLYCOHEMOGLOBIN A1C Reviewed date:05/29/2025 03:30:16 PM Interpretation: Performing Lab: Notes/Report: [facility] , Glycohemoglobin A1C 4.9 4.5-6.2 % ADA RECOMMENDED LIMIT 4.0 - 6.0 ADA THERAPEUTIC TARGET < 7.0 ACTION SUGGESTED > 7.0 Estimated Average Glucose 94 Performing Lab: see note ML - [facility] LB LAB TESTING Reviewed date:06/03/2025 09:27:38 AM Interpretation: Performing Lab: Notes/Report: [id number] Tricyclic Antidepressants Confirmation, Urine [facility] , Miscellaneous Test COMMENT . Test Ordered: [id number] Tricyclic Antidepressant Conf Tricyclic Antidep Negative ng/mL UI Reference Range: Mgqsda=883 Confirmation performed by Mass Spectrometry Please Note: Comment UI Reference Range: . Drug test results should be interpreted in the context of clinical information. Patient metabolic variables, specific drug chemistry, and specimen characteristics can affect test outcome. Technical consultation is available if a test result is inconsistent with an expected outcome. Email: [email or web address] Performed at: [facility] [address] [id number] Feeder/Folder: Ijeoma Lino PhD, Phone: [phone] Performed at: [facility] [address] [id number] Feeder/Folder: Ilya Manjarrez PhD, Phone: [phone] Performing Lab: see note - [facility] LB MAGNESIUM Reviewed date:06/02/2025 11:12:43 AM Interpretation: Performing Lab: Notes/Report: [facility] , Magnesium 1.5 1.8-2.4 mg/dL Performing Lab: see note ML - [facility] LB PROF 14(COMP METB) Reviewed date:06/02/2025 11:12:43 AM Interpretation: Performing Lab: Notes/Report: [facility] , Sodium 138 136-145 mmol/L Potassium 3.3 [...] Globulin Ratio 0.9 Performing Lab: see note [facility] LB RUBELLA AB IGG Reviewed date:06/02/2025 11:12:43 AM Interpretation: Performing Lab: Notes/Report: [facility] , Rubella Antibodies, IgG 1.03 Immune > 0.99 index Non-immune <0.90 Equivocal 0.90 - 0.99 Immune >0.99 Performed at: [address] [id number] Feeder/Folder: Ilya Manjarrez PhD, Phone: [phone] Performing Lab: see note [facility] HIV Ab/p24 Ag with Reflex Reviewed date:06/02/2025 11:12:43 AM Interpretation: Performing Lab: Notes/Report: [facility] , HIV Ab/p24 Ag Screen Non Reactive Non Reactive HIV-1/HIV-2 antibodies and HIV-1 p24 antigen were NOT detected. There is no laboratory evidence of HIV infection. HIV Negative Performed at: [address] [id number] Feeder/Folder: Ilya Manjarrez PhD, Phone: [phone] Performing Lab: see note [facility] Rapid Plasma Reagin, Quant Reviewed date:06/02/2025 11:12:43 AM Interpretation: Performing Lab: Notes/Report: [facility] , Rapid Plasma Reagin, Quant Non Reactive NonRea<1:1 titer Please Note: This test does not meet current guidelines for screening and diagnosis of syphilis. This test is intended for following treatment response in patients being treated for syphilis infection. To screen for syphilis infection, a reflex cascade that includes both RPR and a treponema-specific assay should be utilized, such as Treponema pallidum (Syphilis) Screening [place] (482918) or Rapid Plasma Reagin (RPR) Test With Reflex to Quantitative RPR and Confirmatory Treponema pallidum Antibodies (256543). Performed at: [address] [id number] Feeder/Folder: Ilya Manjarrez PhD, Phone: [phone] Performing Lab: see note [facility] HCV Antibody RFX to Quant PC R Reviewed date:06/02/2025 11:12:43 AM Interpretation: Performing Lab: Notes/Report: [facility] , HCV Ab Non Reactive Non Reactive Interpretation: Comment . Not infected with HCV unless early or acute infection is suspected (which may be delayed in an immunocompromised individual), or other evidence exists to indicate HCV infection. Performed at: [address] [id number] Feeder/Folder: Ilya Manjarrez PhD, Phone: [phone] Performing Lab: see note [facility] HBsAg Screen Reviewed date:06/02/2025 11:12:43 AM Interpretation: Performing Lab: Notes/Report: [facility] , HBsAg Screen Negative Negative Performed at: [address] [id number] Feeder/Folder: Ilya Manjarrez PhD, Phone: [phone] Performing Lab: see note [facility] Urine Culture, Routine Reviewed date:06/02/2025 11:12:43 AM Interpretation: Performing Lab: Notes/Report: [facility] , Urine Culture, Routine See Below For Report Urine Culture, Routine Urine Culture, Routine Mixed urogenital dean Urine Culture, Routine Urine Culture, Routine 50,000-100,000 colony forming units per mL Urine Culture, Routine Urine Culture, Routine Performed at: [facility] Urine Culture, Routine Urine Culture, Routine [address] [place] [id number] Urine Culture, Routine Urine Culture, Routine Feeder/Folder: Ilya Manjarrez PhD, Phone: [phone] Urine Culture, Routine Performing Lab: see note [facility] SEE REPORT - Job Cost Estimator Id information not found for OBX-specific account support associate legend Cannabinoid Conf, MS, UR Reviewed date:06/04/2025 04:05:51 PM Interpretation: Performing Lab: Notes/Report: [facility] , Cannabinoid POSITIVE Carboxy THC Conf, MS, UR >750 ng/mL Cut off = 10 Performing Lab: see note [facility] LB UA Micro, reflex to culture Reviewed date:06/02/2025 11:12:43 AM Interpretation: Performing Lab: Notes/Report: [facility] , Color Urine LT. YELLOW YELLOW Clarity Urine SL CLOUDY CLEAR Specific Chelsea Urine 1.010 1.005-1.025 pH Urine 6.5 5.0-9.0 [...] Performing Lab: see note ML - [facility] LB Magnolia Box Reviewed date:05/29/2025 02:19:29 PM Interpretation: Performing Lab: Notes/Report: [facility] , BOX Test Sent Out [employer] BOX Test Reference Lab unity BOX Test Date Sent 05/29/25 Performing Lab: see note - [facility] LB CBC AUTO DIFF Reviewed date:06/02/2025 11:12:43 AM Interpretation: Performing Lab: Notes/Report: [facility] , White Blood Count 14.0 4.0-11.0 10 [...] Performing Lab: see note ML - [facility] LB CBC AUTO DIFF Reviewed date:07/06/2025 09:22:39 AM Interpretation: Performing Lab: Notes/Report: [facility] , White Blood Count 13.4 4.0-11.0 10 [...] see note ML - [facility] FREE T4 Reviewed date:07/06/2025 09:22:39 AM Interpretation: Performing Lab: Notes/Report: [facility] , Free T4 1.14 0.76-1.46 ng/dL Performing Lab: see note ML - [facility] LB MAGNESIUM Reviewed date:07/06/2025 09:22:39 AM Interpretation: Performing Lab: Notes/Report: [facility] , Magnesium 1.8 1.8-2.4 mg/dL Performing Lab: see note ML - [facility] PROF 14(COMP METB) Reviewed date:07/06/2025 09:22:39 AM Interpretation: Performing Lab: Notes/Report: [facility] , Sodium 137 136-145 mmol/L Potassium 3.5 [...] 0.8 Performing Lab: see note ML - [facility] LB TSH Reviewed date:07/06/2025 09:22:39 AM Interpretation: Performing Lab: Notes/Report: [facility] , Thyroid Stimulating Hormone 2.903 0.358-3.740 uIU/mL Performing Lab: see note - [facility] UA RANDOM W or MICROSCOPIC Reviewed date:07/06/2025 09:22:39 AM Interpretation: Performing Lab: Notes/Report: [facility] , Color Urine LT. YELLOW YELLOW Clarity Urine CLEAR CLEAR Specific [place] Urine 1.015 1.005-1.025 pH Urine 8.0 5.0-9.0 [...] Performing Lab: see note ML - [facility] LB IGP,Aptima HPV,Age Gdln (Not yet reviewed by provider) Interpretation: Performing Lab: Notes/Report: SPATULA-ALONE ENDOCERVIX [facility] , Age Gdln ACOG Testing Note . TESTS RESULT FLAG UNITS REF RANGE LAB Clinician Provided Cytology Information Source.............Endoc ervix Other..............Pregn ant No. of containers..01 ThinPrep Vial Age Algo ACOG Lanny... -29 10 FLAG LEGEND: L-Low Normal,H-High Normal,LL-Alert Low,HH-Alert High <-Panic Low,>-Panic High,A-Abnormal,AA-Criti dalila Abnormal Performed at: 01 [facility] [address] [facility] [place] [address] Shannan Cerda MD, IGP, rfx Aptima HPV ASCU Note . TESTS RESULT FLAG UNITS REF RANGE LAB DIAGNOSIS: 02 NEGATIVE FOR INTRAEPITHELIAL LESION OR MALIGNANCY. Specimen adequacy: 02 Satisfactory for evaluation. Endocervical and/or squamous metaplastic cells (endocervical component) are present. Performed by: Perez Michael, Writer ([facility]) . 02 Note: Note 02 The Pap smear is a screening test designed to aid in the detection of premalignant and malignant conditions of the uterine cervix. It is not a diagnostic procedure and should not be used as the sole means of detecting cervical cancer. Both false-positive and false-negative reports do occur. Test Methodology: Note 02 This liquid based ThinPrep(R) pap test was interpreted using the [employer] Studio(R) Genius(TM) Cervical Algorithm whole slide imaging system. . 02 The HPV DNA reflex criteria were not met with this specimen result therefore, no HPV testing was performed. FLAG LEGEND: L-Low Normal,H-High Normal,LL-Alert Low,HH-Alert High <-Panic Low,>-Panic High,A-Abnormal,AA-Criti dalila Abnormal Performed at: [address] [facility] [address] [phone] Shannan Cerda MD, Performed at: =G - [facility] [address] [id number] Feeder/Folder: Shannan Cerda MD, Phone: [phone] Performed at: - [facility] [id number] Feeder/Folder: Shannan Cerda MD, Phone: [phone] Performing Lab: see note - [facility] LB Type and Screen Reviewed date:05/29/2025 02:51:20 PM Interpretation: Performing Lab: Notes/Report: [facility] , Blood Type B Negative Antibody Screen POSITIVE DRUG SCREEN RAPID (URINE) Reviewed date:05/29/2025 02:19:29 PM Interpretation: Performing Lab: Notes/Report: [facility] , Cannabinoid Screen Urine POSITIVE NEGATIVE Phencyclidine Screen Urine NEGATIVE NEGATIVE Cocaine Screen Urine NEGATIVE NEGATIVE Methamphetamines Screen Urine NEGATIVE NEGATIVE Opiate Screen Urine NEGATIVE NEGATIVE Amphetamine Screen Urine NEGATIVE NEGATIVE Benzodiazepines Screen Urine NEGATIVE NEGATIVE Tricyclic Antidepressant Urine POSITIVE NEGATIVE Methadone Screen Urine NEGATIVE NEGATIVE Barbiturates Screen Urine NEGATIVE NEGATIVE Oxycodone Screen Urine NEGATIVE NEGATIVE Buprenorphine Screen Urine NEGATIVE NEGATIVE DRUG CLASS TEST SYSTEM CUT-OFF CONCENTRATIONS ARE FOLLOWS: AMP (Amphetamine): 500 ng/mL BAR (Barbiturates): 200 ng/mL BZO (Benzodiazepines): 150 ng/mL BUP (Buprenorphine): 10 ng/mL JOHN (Cocaine): 150 ng/mL mAMP (Methamphetamine): 500 ng/mL MTD (Methadone): 200 ng/mL OPI (Opiates): 100 ng/mL OXY (Oxycodone): 100 ng/mL PCP (Phencyclidine): 25 ng/mL THC (Cannabinoids): 50 ng/mL TCA (Trycyclic Antidepressants): 300 ng/mL Performing Lab: see note - [facility] LB Type and Screen Reviewed date:05/15/2025 09:29:49 AM Interpretation: Performing Lab: Notes/Report: [facility] , Blood Type B Negative Antibody Screen NEGATIVE UA RANDOM W or MICROSCOPIC Reviewed date:05/15/2025 09:29:49 AM Interpretation: Performing Lab: Notes/Report: [facility] , Color Urine LT. YELLOW YELLOW Clarity Urine CLEAR CLEAR Specific [place] Urine 1.020 1.005-1.025 pH Urine 6.5 5.0-9.0 [...] NO Performing Lab: see note ML - [facility] LB PROF 14(COMP METB) Reviewed date:05/15/2025 09:29:49 AM Interpretation: Performing Lab: Notes/Report: [facility] , Sodium 135 136-145 mmol/L Potassium 3.4 [...] Performing Lab: see note ML - [facility] LB PREG QUANT HCG Reviewed date:05/15/2025 09:29:49 AM Interpretation: Performing Lab: Notes/Report: [facility] , HCG Quantitative [address] 5-50 0.2-1 WEEK 50-500 1-2 WEEKS 100-5,000 2-3 WEEKS 500-10,000 3-4 WEEKS 1,000-50,000 4-5 WEEKS 10,000-100,000 5-6 WEEKS 15,000-200,000 6-8 WEEKS 10,000-100,000 2-3 MONTHS Performing Lab: see note ML - [facility] LB CBC AUTO DIFF Reviewed date:05/15/2025 09:29:49 AM Interpretation: Performing Lab: Notes/Report: [facility] , White Blood Count 15.3 4.0-11.0 10 [...] Performing Lab: see note ML - [facility] LB PREG QUANT HCG Reviewed date:04/23/2025 12:33:44 PM Interpretation: Performing Lab: Notes/Report: [facility] , HCG Quantitative 275 5-50 0.2-1 WEEK 50-500 1-2 WEEKS 100-5,000 2-3 WEEKS 500-10,000 3-4 WEEKS 1,000-50,000 4-5 WEEKS 10,000-100,000 5-6 WEEKS 15,000-200,000 6-8 WEEKS 10,000-100,000 2-3 MONTHS Performing Lab: see note ML - [facility] LB TSH Reviewed date:03/24/2025 02:44:38 PM Interpretation: Performing Lab: Notes/Report: [facility] , Thyroid Stimulating Hormone 3.180 0.358-3.740 uIU/mL Performing Lab: see note ML - [facility] LB PREG QUANT HCG Reviewed date:03/24/2025 02:44:38 PM Interpretation: Performing Lab: Notes/Report: [facility] , HCG Quantitative <1 5-50 0.2-1 WEEK 50-500 1-2 WEEKS 100-5,000 2-3 WEEKS 500-10,000 3-4 WEEKS 1,000-50,000 4-5 WEEKS 10,000-100,000 5-6 WEEKS 15,000-200,000 6-8 WEEKS 10,000-100,000 2-3 MONTHS Performing Lab: see note ML - [facility] LB FREE T4 Reviewed date:03/24/2025 02:44:38 PM Interpretation: Performing Lab: Notes/Report: [facility] , Free T4 1.19 0.76-1.46 ng/dL Performing Lab: see note ML - [facility] LB CBC AUTO DIFF Reviewed date:03/24/2025 02:44:38 PM Interpretation: Performing Lab: Notes/Report: [facility] , White Blood Count 9.5 4.0-11.0 10 [...] Performing Lab: see note ML - [facility] LB XR abdomen 1V Reviewed date:08/31/2024 07:27:27 PM Interpretation: Performing Lab: Notes/Report: Source Facility: [place] [address] [place] [address] XRay Report Signed Patient: KASH TRISTAN MR#: [id number] : 2000 Acct:[id number] Age/Sex: 24 / F ADM Date: 08/31/24 Loc: ER Attending Dr: Ordering Physician: Hari Zafar M.D. Date of Service: 08/31/24 Procedure(s): XR abdomen 1V Accession Number(s): [id number] cc: Jordan Love M.D.; Hari Zafar M.D. [place] [address] Patient Name: KASH TRISTAN MRN: [facility]:[id number] date: 2000 Sex: F Assigned Patient Location: ER Current Patient Location: ER Accession/Order Number: [id number] Exam Date: 08/31/2024 14:05 Report Date: 08/31/2024 15:41 At the request of: HARI ZFAAR Procedure: XR abdomen 1V EXAM: XR abdomen [...] Signed By: 08/31/24 1543 DD/ 1541 TD/TT: Die Try Out Worker Stamping: EUGENIE Qualitative* Reviewed date:08/31/2024 07:27:27 PM Interpretation: Performing Lab: Notes/Report: [facility] , HCG Qualitative NEGATIVE NEGATIVE Performing Lab: see note - [facility] LB UA RANDOM W or MICROSCOPIC Reviewed date:08/31/2024 07:27:27 PM Interpretation: Performing Lab: Notes/Report: [facility] , Color Urine LT. YELLOW YELLOW Clarity Urine CLEAR CLEAR Specific [place] Urine 1.015 1.005-1.025 pH Urine 7.0 5.0-9.0 [...] Performing Lab: see note ML - [facility] LB PROF CHEM 8 (BAS METB) Reviewed date:08/31/2024 07:27:27 PM Interpretation: Performing Lab: Notes/Report: [facility] , Sodium 141 136-145 mmol/L Potassium 4.0 3.5-5.1 mmol/L Chloride 104 98-107 mmol/L Carbon Dioxide 24.2 21.0-32.0 mmol/L Anion Gap 16.8 Glucose 100 74-106 mg/dL Blood Urea Nitrogen 14.0 7.0-18.0 mg/dL Creatinine 0.90 0.55-1.02 mg/dL Estimated GFR ( Peyton >60 >=60 mL/min/1.73m 2 Estimated GFR (Non- Reyna >60 >=60 mL/min/1.73m 2 BUN Creatinine Ratio 15.6 Calcium 9.1 8.5-10.1 mg/dL Performing Lab: see note ML - [facility] LB LIVER PROFILE Reviewed date:08/31/2024 07:27:27 PM Interpretation: Performing Lab: Notes/Report: [facility] , Bilirubin Total 0.4 0.2-1.0 mg/dL Bilirubin Direct 0.1 0.0-0.2 mg/dL Aspartate Amino Transferase 14 15-37 U/L Alanine Aminotransferase 27 14-59 U/L Alkaline Phosphatase 92 46-116 U/L Total Protein 7.5 6.4-8.2 g/dL Albumin Level 3.5 3.4-5.0 g/dL Globulin 4.0 Albumin Globulin Ratio 0.9 Performing Lab: see note ML - [facility] LB LIPASE Reviewed date:08/31/2024 07:27:27 PM Interpretation: Performing Lab: Notes/Report: [facility] , Lipase 50.0 16.0-77.0 U/L Performing Lab: see note ML - [facility] LB CBC AUTO DIFF Reviewed date:08/31/2024 07:27:27 PM Interpretation: Performing Lab: Notes/Report: [facility] , White Blood Count 12.2 4.0-11.0 10 [...] Performing Lab: see note ML - [facility] LB AMYLASE Reviewed date:08/31/2024 07:27:27 PM Interpretation: Performing Lab: Notes/Report: [facility] , Amylase 97 25-115 U/L Performing Lab: see note - [facility] LB Reason For Referral No [...] Notes Problem Disorder of female genital organs (491112822) Other specified conditions associated with female genital organs and menstrual cycle (N94.89) Active confirmed Problem Somnolence (84453620) Somnolence (R40.0) Active confirmed Problem Sleep apnea (50350134) Severe sleep apnea (G47.30) Active confirmed Problem Transsexual (finding) (912076304) 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) Active confirmed Problem Mixed anxiety and depressive disorder (279539797) Anxiety and depression (F41.8) Active confirmed Encounters Encounter Location Date Provider Diagnosis [facility] [address] [place] [address] 08/08/2024 Carole Desouza Anxiety and depression F41.8 [facility] [address] [place] [address] 08/11/2024 Carole Desouza Assessments Encounter Date Diagnosis (ICD Code) Assessment Notes Treatment Notes Treatment Clinical Notes Section Notes 08/08/2024 Anxiety and depression (ICD-10 - F41.8) Plan Of Treatment Pending Test Test Name Order Date Sleep study - Diagnostic Polysonogram US PELVIS AND TRANSVAG 06/22/2023 IGP,Aptima HPV,Age Gdln 07/13/2025 Insurance Providers Payer Name Payer Address Payer Phone Subscriber Number Group Number Insured Name Patient Relationship to Insured Coverage Start Date Coverage End Date [employer] [place] [employer] [address] [facility] [place] [place] [address] [phone] [id number] Kun, Kash Self - patient is the insured Medical (General) History Medical History History ICD Code Severe sleep apnea G47.30 Hospitalization History Reason Date(Month/Year) [facility] 08/2022
--- OUTSIDE RECORDS SUMMARY | 2025-07-18 18:03 | XMS_ITS | Encounter Summary ---
Author Organization [facility] Address [address] [place] [address] Care Team Providers Care Bowling Floor Desk Clerk Name Role Phone Helio Campos MD Primary Care Provider [phone] Breana Loving TECHNICIAN TELECOMMUNICATION SYSTEMS Unavailable [phone] Encounter Details Date Type Department Care Team (Late Contact Info) Description 07/13/2025 External Result Encounter [facility] External Department Unsolicited Betsy Tate PA [address] [facility] [address] [place], [facility] Social History Tobacco Use Types Packs/Day [...] EST Ancillary Procedure [facility] [address] [facility] [phone] 08/18/2025 11:10 AM EST Routine [facility] [address] [facility] [place] [phone] Cuong Diez DO [address] [place], [place] [id number] documented as of this encounter Procedures Procedure Name Priority Date/Time Associated Diagnosis Comments RECURRENT VAGINITIS (HTRX) Routine 07/13/2025 3:44 PM EDT documented in this encounter Results * (ABNORMAL) RECURRENT VAGINITIS (HTRX) (07/13/2025 3:44 PM EDT) [facility] ATOPOBIUM VAGINAE 0 19.961 - 24.689 ppm 07/14/2025 5:34 AM EDT [facility] ATOPOBIUM VAGINAE Not Detected 19.961 - 24.689 ppm 07/14/2025 5:34 AM EDT [facility] BVAB 2,3 (BACTERIAL VAGINOSIS ASSOCIATED BACTERIA 2, 3); MOBILUNCUS SPP 26.603(A) 19.961 - 24.689 ppm 07/14/2025 5:34 AM EDT [facility] BVAB 2,3 (BACTERIAL VAGINOSIS ASSOCIATED BACTERIA 2, 3); MOBILUNCUS SPP Detected(A) 19.961 - 24.689 ppm 07/14/2025 5:34 AM EDT [facility] ELYSE ALBICANS, PARAPSILOSIS, TROPICALIS 0 23.000 - 30.347 ppm 07/14/2025 5:34 AM EDT [facility] ELYSE ALBICANS, PARAPSILOSIS, TROPICALIS Not Detected 23.000 - 30.347 ppm 07/14/2025 5:34 AM EDT [facility] ELYSE GLABRATA 0 23.000 - 31.618 ppm 07/14/2025 5:34 AM EDT [facility] ELYSE GLABRATA Not Detected 23.000 - 31.618 ppm 07/14/2025 5:34 AM EDT [facility] ELYSE KRUSEI 0 23.000 - 30.873 ppm 07/14/2025 5:34 AM EDT [facility] ELYSE KRUSEI Not Detected 23.000 - 30.873 ppm 07/14/2025 5:34 AM EDT [facility] CHLAMYDIA TRACHOMATIS 0 23.000 - 31.586 ppm 07/14/2025 5:34 AM EDT [facility] CHLAMYDIA TRACHOMATIS Not Detected 23.000 - 31.586 ppm 07/14/2025 5:34 AM EDT [facility] GARDNERELLA VAGINALIS 0 19.961 - 24.689 ppm 07/14/2025 5:34 AM EDT [facility] GARDNERELLA VAGINALIS Not Detected 19.961 - 24.689 ppm 07/14/2025 5:34 AM EDT [facility] MEGASPHAERA (TYPES 1, 2) 0 19.961 - 24.689 ppm 07/14/2025 5:34 AM EDT [facility] MEGASPHAERA (TYPES 1, 2) Not Detected 19.961 - 24.689 ppm 07/14/2025 5:34 AM EDT [facility] NEISSERIA GONORRHOEAE 0 23.000 - 32.587 ppm 07/14/2025 5:34 AM EDT [facility] NEISSERIA GONORRHOEAE Not Detected 23.000 - 32.587 ppm 07/14/2025 5:34 AM EDT [facility] TRICHOMONAS VAGINALIS 0 23.000 - 31.995 ppm 07/14/2025 5:34 AM EDT [facility] TRICHOMONAS VAGINALIS Not Detected 23.000 - 31.995 ppm 07/14/2025 5:34 AM EDT [facility] MYCOPLASMA GENITALIUM 0 19.961 - 24.689 ppm 07/14/2025 5:34 AM EDT [facility] MYCOPLASMA GENITALIUM Not Detected 19.961 - 24.689 ppm 07/14/2025 5:34 AM EDT [facility] MYCOPLASMA HOMINIS 0 19.961 - 24.689 ppm 07/14/2025 5:34 AM EDT [facility] MYCOPLASMA HOMINIS Not Detected 19.961 - 24.689 ppm 07/14/2025 5:34 AM EDT [facility] UREAPLASMA UREALYTICUM 0 19.961 - 24.689 ppm 07/14/2025 5:34 AM EDT [facility] UREAPLASMA UREALYTICUM Not Detected 19.961 - 24.689 ppm 07/14/2025 5:34 AM EDT [facility] UREAPLASMA PARVUM 0 19.961 - 24.689 ppm 07/14/2025 5:34 AM EDT [facility] UREAPLASMA PARVUM Not Detected 19.961 - 24.689 ppm 07/14/2025 5:34 AM EDT [facility] Tissue 07/13/2025 3:44 PM EDT 07/14/2025 1:52 AM EDT us Betsy JUÁREZ LAB BLOOD ORDERABLES Final Resul t [facility] [address] [id number] documented in this encounter Visit Diagnoses Not on filedocumented in this encounter Care Teams Bowling Floor Desk Clerk Relationship Specialty Start Date End Date Helio Campos MD [address] [place] [address] PCP - General Family Medicine 04/05/23 Breana Loving NP [address] [place] [address] PCP - [facility] 12/30/2408/30 documented as of this encounter
--- OUTSIDE RECORDS SUMMARY | 2025-07-18 18:03 | XMS_ITS | Encounter Summary ---
Author Organization [facility] Address [address] [place] [address] Care Team Providers Care Workforce Development Program Director Name Role Phone Helio Campos MD Primary Care Provider [phone] Breana Loving GRAD[employer] 1 THRU 6 HOME TEACHER Unavailable [phone] Encounter Details Date Type Department Care Team (Late st Contact Info) Description 07/06/2025 Telephone [facility] Ella OBGYJairo [address] [place] [phone] Beata Greenberg MA [address] [place] [address] Social History Tobacco Use Types Packs/Day Years [...] I would call her back. I spoke w/GRAD[employer] 1 THRU 6 HOME TEACHER Columba Temple about the above conversation. I called nurse Carli's extension however, she did not answer my call so, I left a detailed message: GRADES 1 THRU 6 HOME TEACHER Emi Temple said the medication Hydroxyzine is [...] EST Ancillary Procedure [facility] Ella NIELSEN [address] [facility] [place] [address] 08/18/2025 11:10 AM EST Routine [facility] Ella NIELSEN [address] [facility] [place] [place] [address] Cuong Diez DO [address] [facility] [place] [address] documented as of this encounter Visit Diagnoses Not on filedocumented in this encounter Care Teams Workforce Development Program Director Relationship Specialty Start Date End Date Helio Campos MD [address] [place] [address] PCP - General Family Medicine 04/05/23 Breana Loving NP [address] [place] [address] PCP - [facility] 12/30/2408/30 documented as of this encounter
--- OUTSIDE RECORDS SUMMARY | 2025-07-18 18:03 | XMS_ITS | Encounter Summary ---
Author Organization [facility] Address [address] [place] [address] Care Team Providers Care Slot Editor Name Role Phone Helio Campos MD Primary Care Provider [phone] Breana Loving NAME PLATE STAMPING MACHINE OPERATOR Unavailable [phone] Encounter Details Date Type Department Care Team (Late st Contact Info) Description 07/14/2025 Patient Outreach [facility] [address] [place] [phone] Betsy Babcock LPN [address] [place] [address] Social History Tobacco Use Types Packs/Day Years [...] on file documented as of this encounter Progress Notes * Betsy Babcock LPN - 07/14/2025 1:16 PM EDT Initial Outreach. Call to pt. Pt is napping, call was brief. Pt agrees to monthly outreach. Meds reviewed. Next OB OV 08/18/2025 documented in this encounter Plan of Treatment Upcoming Encounters Date Type Department Care Team (Late st Contact Info) Description 08/18/2025 10:00 AM EST Ancillary Procedure [facility] Ella NIELSEN [address] [facility] [phone] 08/18/2025 11:10 AM EST Routine [facility] Ella OBGYN [address] [facility] [phone] Cuong Diez DO [address] [facility] [address] [place] [place], [place] [id number] documented as of this encounter Visit Diagnoses Not on filedocumented in this encounter Care Teams Slot Editor Relationship Specialty Start Date End Date Helio Campos MD [address] [facility] [place] [address] PCP - General Family Medicine 04/05/23 Breana Loving NP [address] [place] [address] PCP - [facility] 12/30/2408/30 documented as of this encounter
--- NOTE | 2025-07-18 18:26 | ED.GENADUL1 ---
HPI HPI - General Adult General Chief complaint: Nausea/Vomiting/Diarrhea Stated complaint: Morning sickness Time Seen by Provider: 07/18/25 18:15 Source: patient Mode of arrival: walk-in History of Present Illness HPI narrative: 25-year-old female presents here with chief complaint of nausea. She is approximately 16 weeks . Patient was seen earlier this week by her SALES REPRESENTATIVE [employer] and everything was fine at that point in time. She states she did not mention to them that she was nauseous. Patient is otherwise healthy no acute distress today. She was recently placed on nystatin for a rash on her abdomen. She has been using that and rash has improved tremendously. Patient denies any other symptoms other than nausea Related Data Home Medications ?Medication ?Instructions ?Recorded ?Confirmed quetiapine 25 mg tablet 50 mg PO HS 05/29/25 07/18/25 sertraline 25 mg tablet 50 mg PO Q24H 05/29/25 07/18/25 metronidazole 500 mg tablet 500 mg PO BID 07/18/25 07/18/25 Previous Rx's ?Medication ?Instructions ?Recorded ondansetron 4 mg disintegrating 4 mg PO Q8H PRN nausea and 07/18/25 tablet vomiting 30 days #30 tabs Allergies Allergy/AdvReac Type Severity Reaction Status Date / Time No Known Drug Allergies Allergy Verified 05/29/25 19:04 Opioid HPI Opioid Management Most Recent Opioid Data: Urine Cannabinoids Positive 05/29/25, 12:58 Ur Phencyclidine Scrn, (NEGATIVE) Negative 05/29/25, 12:58 Review of Systems ROS Status of ROS 10 or more systems reviewed and unremarkable except as noted in history and below PFSH PFSH Social History Smoking status: Former smoker Little interest or pleasure in doing things: not at all Feeling down, depressed, or hopeless: not at all Exam Narrative Exam Narrative: All Systems are negative except as noted/marked.All systems reviewed and otherwise negative Nurses note and vital signs reviewed and patient is not hypoxic. General: The patient appears well and in no apparent distress. Patient is resting comfortably on cart. Skin: Warm, dry, no pallor noted. There is no rash noted. Head: Normocephalic, atraumatic Eye: Normal conjunctiva, no drainage, EOMI. PERRL Ears, Nose, Mouth, and Throat: oral mucosa is moist. Nares patent. Mouth without vesicles. Ear canals patent. Tm's without Erythema Cardiovascular: Regular Rate and Rhythm Respiratory: Patient is in no distress, no accessory muscle use, lungs are clear to auscultation, no wheezing, rales or rhonchi Back: non-tender, no CVA tenderness bilaterally to percussion. GI: Normal bowel sounds, no tenderness to palpation, no masses appreciated. No rebound, guarding, or rigidity noted. Musculoskeletal: The patient has no evidence of calf tenderness, no pitting edema, symmetrical pulses noted bilaterally Neurological: A&O x4, normal speech Psychiatric: Cooperative Constitutional Vital Signs, click to edit/add: Last Vital Signs Temp 98.6 F 07/18/25 18:01 Pulse 88 07/18/25 19:51 Resp 16 07/18/25 19:51 BP 152/89 H 07/18/25 19:51 Pulse Ox 96 07/18/25 19:51 O2 Del Method Room Air 07/18/25 19:51 Course Vital Signs Vital signs: Vital Signs Temperature 98.6 F 07/18/25 18:01 Pulse Rate 90 07/18/25 18:01 Respiratory Rate 18 07/18/25 18:01 Blood Pressure 138/71 07/18/25 18:01 Pulse Oximetry 97 07/18/25 18:01 Oxygen Delivery Method Room Air 07/18/25 18:01 Temperature 98.6 F 07/18/25 18:01 Pulse Rate 88 07/18/25 19:51 Respiratory Rate 16 07/18/25 19:51 Blood Pressure 152/89 H 07/18/25 19:51 Pulse Oximetry 96 07/18/25 19:51 Oxygen Delivery Method Room Air 07/18/25 19:51 Medical Decision Making [facility] Narrative Medical decision making narrative: 25-year-old female presents here with chief complaint of nausea. She is approximately 16 weeks . Patient was seen earlier this week by her SALES REPRESENTATIVE [employer] and everything was fine at that point in time. She states she did not mention to them that she was nauseous. Patient is otherwise healthy no acute distress today. She was recently placed on nystatin for a rash on her abdomen. She has been using that and rash has improved tremendously. Patient denies any other symptoms other than nausea Patient presents with chief complaint of nausea with . Urinalysis was obtained and negative. Patient was medicated here with Zofran. I am very familiar with this patient bedside ultrasound showing baby had good movement heart rate was 163 patient looked and feels well. She will be discharged home and follow-up with her SALES REPRESENTATIVE [employer] as scheduled given a prescription for Zofran. Medical Records Medical records reviewed: Yes I reviewed the patient's medical records Lab Data Lab results reviewed: Yes I reviewed the patient's lab results Labs: Lab Results 07/18/25 Range/Units 19:25 Urine Color Yellow (YELLOW) Urine Clarity Sl cloudy (CLEAR) Urine pH 7.0 (5.0-9.0) Ur Specific Gerlaw 1.010 (1.005-1.025) Urine Protein Trace (NEG/TRACE) mg/dL Urine Glucose (UA) Negative (NEGATIVE) mg/dL Urine Ketones 40 A (NEGATIVE) mg/dL Urine Occult Blood Negative (NEGATIVE) Urine Nitrite Negative (NEGATIVE) Urine Bilirubin Small A (NEGATIVE) Urine Urobilinogen 0.2 (0.2-1.0) EU/dL Ur Leukocyte Esterase Trace A (NEGATIVE) Urine RBC None seen (0-2) #/HPF Urine WBC 0-2 A (NONE SEEN) #/HPF Ur Squamous Epith Cells Many A (NONE/RARE) #/LPF Urine Crystals None seen (None Seen) #/HPF Urine Bacteria Trace A (NONE SEEN) #/HPF Urine Casts None seen (NONE SEEN) #/LPF Urine Mucus None seen (NONE SEEN) Ur Culture Indicated? No Discharge Plan Discharge Chief Complaint: Nausea/Vomiting/Diarrhea Clinical Impression: Morning sickness Patient Disposition: Home, Self-Care Time of Disposition Decision: 19:44 Condition: Good Mode of Transportation: Private Vehicle Prescriptions / Home Meds: New ondansetron 4 mg tablet,disintegrating 4 mg PO Q8H PRN (Reason: nausea and vomiting) 30 Days Qty: 30 0RF No Action sertraline 25 mg tablet 50 mg PO Q24H quetiapine 25 mg tablet 50 mg PO HS metronidazole 500 mg tablet 500 mg PO BID Print Language: Uzbek Instructions: Nausea and Vomiting in (ED) Referrals: Cuong Diez DO [Physician, SALES REPRESENTATIVE [employer]] - As needed Referral Note: follow up in the office as schedule or sooner if needed ALFREDO JORGENSEN [Primary Care Provider, Family Practice] - 1 week Discharge Date/Time: 07/18/25 19:53
[2025-07-18] MEDS: ONDANSETRON 4 MG RAPDIS TABLET SL (18:54)
[2025-07-18 19:32] LABS: Glucose Urine UA NEGATIVE (NEGATIVE)
[2025-07-18 19:42] LABS: Cast Seen? NONE SEEN #/LPF (NONE SEEN); Crystals Seen? None Seen #/HPF (None Seen); Urine Culture Indicated NO
[2025-07-18 19:51] VITALS: BP 152/89; PULSE 88; O2SAT 96
== END 2025-07-18 19:53 | disposition home or self-care (01) ==
PROVIDERS: Physician Assistant; Emergency Provider Emergency Medicine; PCP Nurse Practitioner Family
DX: O21.9 Vomiting of pregnancy, unspecified (principal); Z3A.16 16 weeks gestation of pregnancy
CPT/HCPCS: 81001; 99283; Q0162

== ENCOUNTER 2025-08-04 14:54 | Outpatient (OUT) | payer OTHER, SELFPAY ==
--- OUTSIDE RECORDS SUMMARY | 2025-07-01 06:00 | XMS_ITS ---
Author Organization [facility] in [place] Address [address] [place] [address] Care Team Providers Care Industrial Maintenance Mechanic Name Role Phone Carole Desouza Primary Care Provider [phone] REASON FOR VISIT yearly check up Encounters Encounter Location Date Provider Diagnosis [facility] [address] [place] [address] 07/01/2025 Carole Desouza Plan Of Treatment No Information Progress Notes * Kay TRISTAN MDOB: [birth year] (25 yo F)Acc No.[id number]:07/01/2025 UNLOCKED PROGRESS NOTE Progress Note Patient: Ayush MARIE Kay Chris :?Carole TEIXEIRA), CNPDOB:2000 ???Age:25 Y???Sex:FemaleDate:07/01/2025Phone:[phone]:[address] [place], [place] [phone] Subjective: * Chief Complaints: * 1 . Yearly check up. * Medical History: Objective: * Vitals: Assessment: Plan: * Treatment: * * Electronic signature of Carole Desouza NP, RIVET TOSSER.ITEM [email or web address] on 08/04/2025 at 02:58 PM ESTSign off status: PendingVisit Status:?N/S N/C (No Show/No Charge) * Provider: Jason TEIXEIRA), ITEM PROCESSOR Date: 1 Generated for Printing/Faxing/eTransmitting on:?08/04/2025 02:58 PM EST
--- OUTSIDE RECORDS SUMMARY | 2025-08-04 14:58 | XMS_ITS | Clinical Summary ---
Author Organization [facility] Address [id number] [place] [address] Care Team Providers Care Director Clinical Information Services Name Role Phone Helio Campos MD Primary Care Provider [phone] Allergies No known active allergies Medications MedicationSigDispense QuantityRefillsLast FilledStart DateEnd DateStatus testosterone enanthate 75 mg/0.5 mL auto-injector Inject 75 mg under the skin every 7 days.Active cariprazine (VRAYLAR) 6 mg capsule Take 6 mg by mouth in the morning.Active buPROPion XL (WELLBUTRIN XL) 300 mg 24 hr tablet Take 1 tablet (300 mg total) by mouth in the morning.Active hydrOXYzine (ATARAX) 25 mg tablet Take 1 tablet (25 mg total) by mouth 3 (three) times a day as needed for itching.Active ibuprofen (MOTRIN) 600 mg tablet Take 1 tablet (600 mg total) by mouth every 6 (six) hours as needed for pain. Active OXcarbazepine (TrileptaL) 300 mg tablet Take 1 tablet (300 mg total) by mouth in the morning and 1 tablet (300 mg total) before bedtime.Active Active Problems No known active problems Family History Medical HistoryRelationNameCommentsDepressionFatherTomDiabetesFatherTomMental illnessFatherTomBreast cancerNeg HxOvarian cancerNeg HxUterine cancerNeg Hx RelationNameStatusCommentsFatherTom Social History Tobacco UseTypesPacks/DayYears UsedDateSmoking Tobacco: NeverSmokeless Tobacco: NeverAlcohol UseStandard Drinks/WeekCommentsNever0 (1 standard drink = 0.6 oz pure alcohol)ChildcareAnswerDate FgtkfvhbFuzecewfyPblhlmu71/12/2019Employment AnswerDate SklrplbdZmztjpmzldSrnbdwn71/12/2019Hunger ScreeningAnswerDate RecordedWithin the past 12 months we worried whether our food would run out before we got money to buy more.Never True08/31/2022Within the past 12 months the food we bought just didn't last and we didn't have money to get more.Never True08/31/2022CommentsNoSex and Gender InformationValueDate RecordedSex Assigned at UpblgGzforg52/23/2022 10:35 AM ESTLegal QvpYtzdpt18/06/2015 12:11 PM EDTGender NfiohevmCivapy89/23/2022 10:35 AM ESTSexual OrientationBisexual 08/23/2022 10:35 AM ESTSexual OrientationSomething else08/23/2022 10:35 AM EST Last Filed Vital Signs Vital SignReadingTime TakenCommentsBlood Xjfkvrdr355/7407 10:25 AM EDT Zihya086508/31/2022 10:47 AM ESTTemperature--Respiratory Zkpo197811/01/2021 10:47 AM ESTOxygen Saturation--Inhaled Oxygen Concentration--Potoan93.8 kg (200 lb 3.2 oz)04/04/2023 10:25 AM CUBRzkmwj641.9 cm (4' 11 )04/04/2023 10:25 AM EDTBody Mass Index40.4407 10:25 AM EDT Plan of Treatment Health MaintenanceDue DateLast DoneCommentsDepression Zamqqjuob41/07/2014Tobacco Rmyesmchb14/07/2014Chlamydia Lapuldbfu66/ap Smear12/10/2023 12/09/2020TaP,Tdap and Td Vaccines (2 - Td or Tdap)/dult BMI Hzashpghd97/01/2023Influenza Utbllhs17/, 06/13/2013, 07/25/2012, Additional history exists Medical Devices Not on file Insurance Care Teams Team MemberRelationshipSpecialtyStart DateEnd Date Helio Campos MD PCP - GeneralFamily Medicine04/04/23
--- OUTSIDE RECORDS SUMMARY | 2025-08-04 14:58 | XMS_ITS | Patient Health Record ---
Author Organization The [facility] in [place] Address [address] [place] [address] Care Team Providers Care Intervention Analyst Name Role Phone Carole Desouza Primary Care Provider Allergies No Known Allergies Results Component Value Reference Range Notes AMYLASE Reviewed date:08/31/2024 07:27:27 PM Interpretation: Performing Lab: Notes/Report: [facility] , Amylase 97 25-115 U/L Performing Lab:see noteML - [facility] LBCBC AUTO DIFF Reviewed date:08/31/2024 07:27:27 PM Interpretation: Performing Lab: Notes/Report: [facility] ,White Blood Count12.24.0-11.0 10 3/uLRed Blood Count4.934.20-5.40 10 6/uL Muskvygjlu74.212.0-16.0 g/uEBjitvtloet47.736.0-48.0 %Mean Corpuscular Pkcrsv00.6 81.0-99.0 fLMean Corpuscular Kisstchyua42.826.7-34.0 pgMean Corpuscular HGB Conc 34.829.9-35.2 g/dLRed Cell Distribution Width12.211.0-15.0 %Platelet Uaghz184 150-450 10 3/uLMean Platelet Volume8.79.5-13.5 fLNeutrophils Percent Auto65.5 43.0-75.0 %Lymphocytes Percent Auto24.120.5-60.0 %Monocytes Percent Auto6.91.7- 12.0 %Eosinophils Percent Auto2.50.9-7.0 %Basophils Percent Auto0.50.2-2.0 % Immature Granulocytes Pct Auto0.50.0-0.5 %Neutrophils Absolute Auto8.01.4-6.5 10 3/uLLymphocytes Absolute Auto3.01.2-3.8 10 3/uLMonocytes Absolute Auto0.80.3- 0.8 10 3/uLEosinophils Absolute Auto0.30.0-0.7 10 3/uLBasophils Absolute Auto0.1 0.0-0.1 10 3/uLImmature Granulocytes Abs Auto0.060.00-0.03 10 3/uLPerforming Lab:see noteML - [facility] LBLIPASE Reviewed date:08/31/2024 07:27:27 PM Interpretation: Performing Lab: Notes/Report: [facility] ,Oeprgc23.016.0-77.0 U/LPerforming Lab:see note - [facility] LB LIVER PROFILE Reviewed date:08/31/2024 07:27:27 PM Interpretation: Performing Lab: Notes/Report: [facility] ,Bilirubin Total0.40.2-1.0 mg/dLBilirubin Direct0.10.0-0.2 mg/dLAspartate Amino Yyhnquqfvlp6938-45 U/LAlanine Hveorzzunnwzhgnl7957-26 U/LAlkaline Ijqszkwjyfr59 46-116 U/LTotal Protein7.56.4-8.2 g/dLAlbumin Level3.53.4-5.0 g/dLGlobulin4.0 Albumin Globulin Ratio0.9Performing Lab:see note - [facility] LB PROF CHEM 8 (BAS METB) Reviewed date:08/31/2024 07:27:27 PM Interpretation: Performing Lab: Notes/Report: [facility] ,Uylzyn053268-176 mmol/LPotassium4.03.5-5.1 mmol/OWaqydpfm25332-560 mmol/LCarbon Peawixd16.221.0-32.0 mmol/LAnion Gap16.5Ciiihrv90869-925 mg/dLBlood Urea Joeqevqn05.07.0-18.0 mg/dLCreatinine0.900.55-1.02 mg/dLEstimated GFR ( Peyton>60>=60 mL/min/1.73m 2Estimated GFR (Non- Reyna>60>=60 mL/min/1.73m 2BUN Creatinine Ratio15.3Iwcqyhk3.18.5-10.1 mg/dLPerforming Lab:see note - [facility] LBUA RANDOM W or MICROSCOPIC Reviewed date:08/31/2024 07:27:27 PM Interpretation: Performing Lab: Notes/Report: [facility] ,Color UrineLT. YELLOWYELLOWClarity UrineCLEARCLEARSpecific Perry Urine1.015 1.005-1.025pH Urine7.05.0-9.0Protein UrineNEGATIVENEG/TRACE mg/dLGlucose Urine UANEGATIVENEGATIVE mg/dLBilirubin UrineNEGATIVENEGATIVEKetones UrineNEGATIVE NEGATIVE mg/dLBlood UrineNEGATIVENEGATIVENitrite UrineNEGATIVENEGATIVE Urobilinogen Urine0.20.2-1.0 EU/dLLeukocyte Esterase UrineNEGATIVENEGATIVEWBC UrineNONE SEENNONE SEEN #/HPFRBC UrineNONE SEEN0-2 #/HPFBacteria UrineTRACENONE SEEN #/HPFMucus UrineNONE SEENNONE SEENSquamous Epithelial Cell UrineMANY NONE/RARE #/LPFCrystals Seen?None SeenNone Seen #/HPFCast Seen?NONE SEENNONE SEEN #/LPFUrine Culture IndicatedNOPerforming Lab:see note - [facility] LBHCG Qualitative* Reviewed date:08/31/2024 07:27:27 PM Interpretation: Performing Lab: Notes/Report: [facility] ,HCG QualitativeNEGATIVENEGATIVEPerforming Lab:see note - [facility] LBXR abdomen 1V Reviewed date:08/31/2024 07:27:27 PM Interpretation: Performing Lab: Notes/Report: Source Facility: [facility]-[address] [place] [address] [place] [address] XRay Report Signed Patient: KASH TRISTAN MR#: [id number] : 2000 Acct:[id number] Age/Sex: 24 / F ADM Date: 08/31/24 Loc: ER Attending Dr: Ordering Physician: Hari Hutton M.D. Date of Service: 08/31/24 Procedure(s): XR abdomen 1V Accession Number(s): [id number] cc: Jordan Love M.D.; Hari Hutton M.D. The [address] [address] Patient Name: KASH TRISTAN MRN: [facility]:[id number] date: 2000 Sex: F Assigned Patient Location: ER Current Patient Location: ER Accession/Order Number: [id number] Exam Date: 08/31/2024 14:05 Report Date: 08/31/2024 [...] Signed By: 08/31/24 1543 DD/ 1541 TD/TT: It Sales Consultant:MEGAN TRAORE Reviewed date:02/16/2025 01:54:56 PM Interpretation: Performing Lab: Notes/Report: [facility] ,HCG Quantitative<1 5-50 0.2-1 WEEK 100-5,000 2-3 WEEKS 15,000-200,000 6-8 WEEKS 50-500 1-2 WEEKS 1,000-50,000 4-5 WEEKS 500-10,000 3-4 WEEKS 10,000-100,000 2-3 MONTHS 10,000-100,000 5-6 WEEKS Performing Lab:see noteML - [facility] LBPROF 14(COMP METB) Reviewed date:02/16/2025 01:54:56 PM Interpretation: Performing Lab: Notes/Report: [facility] ,Pqytwd742577-005 mmol/LPotassium3.93.5-5.1 mmol/JYgpiimhh70998-985 mmol/LCarbon Kvxztlo43.621.0-32.0 mmol/LAnion Gap14.1Ujffwdn5255-534 mg/dLBlood Urea Nitrogen 17.07.0-18.0 mg/dLCreatinine0.860.55-1.02 mg/dLEstimated GFR ( Peyton>60 >=60 mL/min/1.73m 2Estimated GFR (Non- Reyna>60>=60 mL/min/1.73m 2BUN Creatinine Ratio19.6Eanhfvm5.38.5-10.1 mg/dLBilirubin Total0.40.2-1.0 mg/dL Aspartate Amino Qobfqjdonaw0254-92 U/LAlanine Lojqfffhsoetdxsp5942-08 U/L Alkaline Oyzdqpdlehu92173-757 U/LTotal Protein7.96.4-8.2 g/dLAlbumin Level3.7 3.4-5.0 g/dLGlobulin4.2Albumin Globulin Ratio0.9Performing Lab:see noteML - [facility] LBTSH Reviewed date:02/16/2025 01:54:56 PM Interpretation: Performing Lab: Notes/Report: [facility] ,Thyroid Stimulating Hormone3.2020.358-3.740 uIU/mLPerforming Lab:see noteML - [facility] LBFREE T4 Reviewed date:03/24/2025 02:44:38 PM Interpretation: Performing Lab: Notes/Report: [facility] ,Free T41.190.76-1.46 ng/dLPerforming Lab:see noteML - [facility] LB GLYCOHEMOGLOBIN A1C Reviewed date:03/24/2025 02:44:38 PM Interpretation: Performing Lab: Notes/Report: [facility] ,Glycohemoglobin A1C5.34.5-6.2 % ACTION SUGGESTED > 7.0 ADA RECOMMENDED LIMIT 4.0 - 6.0 ADA THERAPEUTIC TARGET < 7.0 Estimated Average Wgpfmyw892Xoznuqfcgt Lab:see noteML - [facility] LB PREG QUANT HCG Reviewed date:03/24/2025 02:44:38 PM Interpretation: Performing Lab: Notes/Report: [facility] ,HCG Quantitative<1 500-10,000 3-4 WEEKS 15,000-200,000 6-8 WEEKS 50-500 1-2 WEEKS 1,000-50,000 4-5 WEEKS 10,000-100,000 2-3 MONTHS 100-5,000 2-3 WEEKS 10,000-100,000 5-6 WEEKS 5-50 0.2-1 WEEK Performing Lab:see noteML - [facility] LBTSH Reviewed date:03/24/2025 02:44:38 PM Interpretation: Performing Lab: Notes/Report: [facility] ,Thyroid Stimulating Hormone3.1800.358-3.740 uIU/mLPerforming Lab:see noteML - [facility] LBDHEA, Serum Reviewed date:03/29/2025 01:16:45 PM Interpretation: Performing Lab: Notes/Report: [facility] ,DHEA, Tkyjf22657-846 ng/dL [facility] [place], [place] [id number] Performed at: [facility] determined by [facility]. It has not been cleared or approved by the Food and Drug Administration. [employer] Detailer: Tiara Merchant MD, Phone: [phone] This test was developed and its performance characteristics Performing Lab:see noteLC - [facility] LBAnti-Mullerian Hormone (AMH) Reviewed date:03/29/2025 01:16:45 PM Interpretation: Performing Lab: Notes/Report: [facility] ,Anti-Mullerian Hormone (AMH)0.939. ng/mL AMH concentrations of >= 1.06 ng/mL [...] AMH levels from PCOS patients Performed at: [employer] the study method with a slope of 0.94. Reference Range: determined by [facility]. It has not been cleared or approved Ro[employer] Truss Detailer: Rogelio Salmon MD, Phone: [phone] Females 20 - 25y: 1.23 - 11.[address] [place] [phone] Clin. Chem. 2000; 46: 5584-5604. malignancy, and the assay should not be used exclusively to This test was developed and its performance characteristics to Carlineer et al. Fertility and Sterility. 2010: Females at risk of ovarian hyperstimulation syndrome or by the Food and Drug Administration. Median 4.70 retrievable oocytes and higher odds of live according 94:1188-8294. The current AMH test method correlates with diagnose or exclude an AMH-secreting ovarian tumor. interference by heterophile antibodies in the samples.1 Granulosa cell tumors of the ovary may secrete AMH along better response to ovarian stimulation, produced more Performing Lab:see noteLC - [facility] LBProgesterone Reviewed date:04/13/2025 08:29:18 AM Interpretation: Performing Lab: Notes/Report: [facility] ,Progesterone9.5. ng/mL Luteal phase 1.8 - 23.9 [employer] Detailer: Ilya Majnarrez PhD, Phone: [phone] First trimester 11.0 - 44.3 Postmenopausal 0.0 - 0.1 Third trimester 58.7 - 214.0 [address] [place], [place] [id number] Follicular phase 0.1 - 0.9 Performed at: - [facility] [place] Second trimester 25.4 - 83.3 Ovulation phase 0.1 - 12.0 Performing Lab:see note - [facility] LBPREG QUANT HCG Reviewed date:04/23/2025 12:33:44 PM Interpretation: Performing Lab: Notes/Report: [facility] ,HCG Ijwudtmmolct887 50-500 1-2 WEEKS 5-50 0.2-1 WEEK 100-5,000 2-3 WEEKS 500-10,000 3-4 WEEKS 1,000-50,000 4-5 WEEKS 10,000-100,000 5-6 WEEKS 15,000-200,000 6-8 WEEKS 10,000-100,000 2-3 MONTHS Performing Lab:see noteML - [facility] LBCBC AUTO DIFF Reviewed date:05/15/2025 09:29:49 AM Interpretation: Performing Lab: Notes/Report: [facility] ,White Blood Count15.34.0-11.0 10 3/uLRed Blood Count4.294.20-5.40 10 6/uL Cavlueaxcb89.212.0-16.0 g/mBAbthmhnplv19.836.0-48.0 %Mean Corpuscular Ocrfrx90.8 81.0-99.0 fLMean Corpuscular Cpoyhlnhny89.826.7-34.0 pgMean Corpuscular HGB Conc 35.929.9-35.2 g/dLRed Cell Distribution Width12.811.0-15.0 %Platelet Ptyoe136 150-450 10 3/uLMean Platelet Volume9.09.5-13.5 fLNeutrophils Percent Auto63.8 43.0-75.0 %Lymphocytes Percent Auto24.320.5-60.0 %Monocytes Percent Auto9.01.7- 12.0 %Eosinophils Percent Auto1.80.9-7.0 %Basophils Percent Auto0.40.2-2.0 % Immature Granulocytes Pct Auto0.70.0-0.5 %Neutrophils Absolute Auto9.81.4-6.5 10 3/uLLymphocytes Absolute Auto3.71.2-3.8 10 3/uLMonocytes Absolute Auto1.40.3-0.8 10 3/uLEosinophils Absolute Auto0.30.0-0.7 10 3/uLBasophils Absolute Auto0.10.0- 0.1 10 3/uLImmature Granulocytes Abs Auto0.110.00-0.03 10 3/uLPerforming Lab:see noteML - [facility] LBPREG QUANT HCG Reviewed date:05/15/2025 09:29:49 AM Interpretation: Performing Lab: Notes/Report: [facility] ,HCG Spbeiayyyjhw10552 1,000-50,000 4-5 WEEKS 50-500 1-2 WEEKS 10,000-100,000 2-3 MONTHS 10,000-100,000 5-6 WEEKS 100-5,000 2-3 WEEKS 15,000-200,000 6-8 WEEKS 500-10,000 3-4 WEEKS 5-50 0.2-1 WEEK Performing Lab:see noteML - [facility] LBPROF 14(COMP METB) Reviewed date:05/15/2025 09:29:49 AM Interpretation: Performing Lab: Notes/Report: [facility] ,Xatbbk751169-728 mmol/LPotassium3.43.5-5.1 mmol/OUivbxxyl87996-992 mmol/LCarbon Raeilto72.721.0-32.0 mmol/LAnion Gap9.4Gdmwzxv2529-523 mg/dLBlood Urea Nitrogen 10.07.0-18.0 mg/dLCreatinine0.740.55-1.02 mg/dLEstimated GFR ( Peyton>60 >=60 mL/min/1.73m 2Estimated GFR (Non- Reyna>60>=60 mL/min/1.73m 2BUN Creatinine Ratio13.6Depqinq7.38.5-10.1 mg/dLBilirubin Total0.30.2-1.0 mg/dL Aspartate Amino Bufuetfumxy6395-95 U/LAlanine Nbljbqhrlzvaxmwq1801-27 U/L Alkaline Reebsrfqkzk8096-054 U/LTotal Protein7.36.4-8.2 g/dLAlbumin Level3.33.4- 5.0 g/dLGlobulin4.0Albumin Globulin Ratio0.8Performing Lab:see noteML - [facility] LBUA RANDOM W or MICROSCOPIC Reviewed date:05/15/2025 09:29:49 AM Interpretation: Performing Lab: Notes/Report: [facility] ,Color UrineLT. YELLOWYELLOWClarity UrineCLEARCLEARSpecific Perry Urine1.020 1.005-1.025pH Urine6.55.0-9.0Protein UrineNEGATIVENEG/TRACE mg/dLGlucose Urine UANEGATIVENEGATIVE mg/dLBilirubin UrineNEGATIVENEGATIVEKetones UrineNEGATIVE NEGATIVE mg/dLBlood UrineNEGATIVENEGATIVENitrite UrineNEGATIVENEGATIVE Urobilinogen Urine0.20.2-1.0 EU/dLLeukocyte Esterase UrineNEGATIVENEGATIVEWBC Urine0-2NONE SEEN #/HPFRBC Urine0-20-2 #/HPFBacteria UrineTRACENONE SEEN #/HPF Mucus UrineNONE SEENNONE SEENSquamous Epithelial Cell UrineMODERATENONE/RARE #/LPFCrystals Seen?None SeenNone Seen #/HPFCast Seen?NONE SEENNONE SEEN #/LPF Urine Culture IndicatedNOPerforming Lab:see noteML - [facility] LB Type and Screen Reviewed date:05/15/2025 09:29:49 AM Interpretation: Performing Lab: Notes/Report: [facility] ,Blood TypeB NegativeAntibody ScreenNEGATIVEANTIBODY ID PANEL Reviewed date:05/29/2025 02:51:20 PM Interpretation: Performing Lab: Notes/Report: [facility] ,Antibody IdentificationD RHIG PROBABLE ANTI-D DUE TO RHIG ADMINISTRATION ON 05/14/25. FURTHER WORKUP AT [employer] REQUEST. CBC AUTO DIFF Reviewed date:05/29/2025 02:19:28 PM Interpretation: Performing Lab: Notes/Report: [facility] ,White Blood Count11.34.0-11.0 10 3/uLRed Blood Count4.244.20-5.40 10 6/uL Vfobdnplks95.912.0-16.0 g/aLPezvrkklmd17.536.0-48.0 %Mean Corpuscular Gdxsru83.1 81.0-99.0 fLMean Corpuscular Brhcorsxte76.426.7-34.0 pgMean Corpuscular HGB Conc 35.329.9-35.2 g/dLRed Cell Distribution Width13.011.0-15.0 %Platelet Lcxwt897 150-450 10 3/uLMean Platelet Volume9.09.5-13.5 fLNeutrophils Percent Auto61.8 43.0-75.0 %Lymphocytes Percent Auto28.620.5-60.0 %Monocytes Percent Auto7.11.7- 12.0 %Eosinophils Percent Auto1.70.9-7.0 %Basophils Percent Auto0.40.2-2.0 % Immature Granulocytes Pct Auto0.40.0-0.5 %Neutrophils Absolute Auto7.01.4-6.5 10 3/uLLymphocytes Absolute Auto3.21.2-3.8 10 3/uLMonocytes Absolute Auto0.80.3-0.8 10 3/uLEosinophils Absolute Auto0.20.0-0.7 10 3/uLBasophils Absolute Auto0.10.0- 0.1 10 3/uLImmature Granulocytes Abs Auto0.040.00-0.03 10 3/uLPerforming Lab:see noteML - [facility] LBGLYCOHEMOGLOBIN A1C Reviewed date:05/29/2025 03:30:16 PM Interpretation: Performing Lab: Notes/Report: [facility] ,Glycohemoglobin A1C4.94.5-6.2 % ACTION SUGGESTED > 7.0 ADA RECOMMENDED LIMIT 4.0 - 6.0 ADA THERAPEUTIC TARGET < 7.0 Estimated Average Rdkzerd67Uomwoxcrrs Lab:see noteML - [facility] LB LAB TESTING Reviewed date:06/03/2025 09:27:38 AM Interpretation: Performing Lab: Notes/Report: [id number] Tricyclic Antidepressants Confirmation, Urine [facility] ,Miscellaneous TestCOMMENT. Reference Range: . Performed at: [facility] Test Ordered: [id number] Tricyclic Antidepressant Conf Email: [email or web address] Drug test results should be interpreted in the context of clinical Confirmation performed by Mass Spectrometry Please Note: Comment UI consultation is available if a test result is inconsistent with an [employer] Detailer: Ijeoma Lino PhD, Phone: [phone] expected outcome. Tricyclic Antidep Negative ng/mL [employer] Detailer: Ilya Manjarrez PhD, Phone: [phone] [address] [place], [place] [phone] Performed at: [facility] RT specimen characteristics can affect test outcome. Technical information. Patient metabolic variables, specific drug chemistry, and Reference Range: Lmoeds=837 [address] [place], [place] [id number] Performing Lab:see note - [facility] LBMAGNESIUM Reviewed date:06/02/2025 11:12:43 AM Interpretation: Performing Lab: Notes/Report: [facility] ,Magnesium1.51.8-2.4 mg/dLPerforming Lab:see noteML - [facility] LB PROF 14(COMP METB) Reviewed date:06/02/2025 11:12:43 AM Interpretation: Performing Lab: Notes/Report: [facility] ,Chxewm464006-079 mmol/LPotassium3.33.5-5.1 mmol/VGzwoivrg42303-957 mmol/LCarbon Flbaedl10.121.0-32.0 mmol/LAnion Gap14.1Desckaw7487-295 mg/dLBlood Urea Nitrogen 8.07.0-18.0 mg/dLCreatinine0.750.55-1.02 mg/dLEstimated GFR ( Peyton>60 >=60 mL/min/1.73m 2Estimated GFR (Non- Reyna>60>=60 mL/min/1.73m 2BUN Creatinine Ratio10.8Ijbpcuv1.48.5-10.1 mg/dLBilirubin Total0.30.2-1.0 mg/dL Aspartate Amino Cigxeygdwrw3802-49 U/LAlanine Zpuszykjbbummafr6323-41 U/L Alkaline Lxdvwqvxiea9837-085 U/LTotal Protein7.86.4-8.2 g/dLAlbumin Level3.73.4- 5.0 g/dLGlobulin4.1Albumin Globulin Ratio0.9Performing Lab:see note - [facility] LBRUBELLA AB IGG Reviewed date:06/02/2025 11:12:43 AM Interpretation: Performing Lab: Notes/Report: [facility] ,Rubella Antibodies, IgG1.03Immune >0.99 index Non-immune <0.90 Performed at: [facility] Immune >0.99 Ro[employer] Truss Detailer: Ilya Manjarrez PhD, Phone: [phone] Equivocal 0.90 - 0.[address] [place] [phone] Performing [facility] LBType and Screen Reviewed date:05/29/2025 02:51:20 PM Interpretation: Performing Lab: Notes/Report: [facility] ,Blood TypeB NegativeAntibody ScreenPOSITIVEHIV Ab/p24 Ag with Reflex Reviewed date:06/02/2025 11:12:43 AM Interpretation: Performing Lab: Notes/Report: [facility] ,HIV Ab/p24 Ag ScreenNon ReactiveNon Reactive [address] [place] [phone] detected. There is no laboratory evidence of HIV infection. HIV Negative Ro[employer] Truss Detailer: Ilya Manjarrez PhD, Phone: [phone] HIV-1/HIV-2 antibodies and HIV-1 p24 antigen were NOT Performed at: [facility] Performing Lab[facility] LBRapid Plasma Reagin, Quant Reviewed date:06/02/2025 11:12:43 AM Interpretation: Performing Lab: Notes/Report: [facility] ,Rapid Plasma Reagin, QuantNon ReactiveNonRea<1:1 titer Treponema pallidum (Syphilis) Screening [employer] (330784) or intended for following treatment response in patients being treated for syphilis infection. To screen for syphilis RPR and Confirmatory Treponema pallidum Antibodies (733277). infection, a reflex cascade that includes both RPR and a Performed at: [facility] screening and diagnosis of syphilis. This test is treponema-specific assay should be utilized, such as [address] [place] [phone] Roof Truss Detailer: Ilya Manjarrez PhD, Phone: [phone] Rapid Plasma Reagin (RPR) Test With Reflex to Quantitative Please Note: This test does not meet current guidelines for Performing Lab[facility] LBHCV Antibody RFX to Quant PCR Reviewed date:06/02/2025 11:12:43 AM Interpretation: Performing Lab: Notes/Report: [facility] ,HCV AbNon ReactiveNon ReactiveInterpretation:Comment. suspected (which may be delayed in an immunocompromised Performed at: [facility] Roof Truss Detailer: Ilya Manjarrez PhD, Phone: [phone] Not infected with HCV unless early or acute infection is infection. individual), or other evidence exists to indicate HCV [address] [place] [phone] Performing Lab[facility] LBHBsAg Screen Reviewed date:06/02/2025 11:12:43 AM Interpretation: Performing Lab: Notes/Report: [facility] ,HBsAg ScreenNegativeNegative Roof Truss Detailer: Ilya Manjarrez PhD, Phone: [phone] [address] [place] [phone] Performed at: [facility] Performing Lab:[facility] LBUrine Culture, Routine Reviewed date:06/02/2025 11:12:43 AM Interpretation: Performing Lab: Notes/Report: [facility] ,Urine Culture, RoutineSee Below For ReportUrine Culture, RoutineUrine Culture, RoutineMixed urogenital floraUrine Culture, RoutineUrine Culture, Wjqkble82,000- 100,000 colony forming units per mLUrine Culture, RoutineUrine Culture, Routine [facility]formed [facility]: [facility], RoutineUrine Culture, Routine [address] [place] [phone] Culture, RoutineUrine Culture, RoutineLab Director: Ilya Manjarrez PhD, Phone: [phone] Culture, RoutinePerforming Lab:see note LC - [facility] LB SEE REPORT - Range Master Id information not found for OBX-specific behavioral school counselors legend Cannabinoid Aaron, MS, UR Reviewed date:06/04/2025 04:05:51 PM Interpretation: Performing Lab: Notes/Report: [facility] ,CannabinoidPOSITIVECarboxy THC Conf, MS, UR>750 ng/mLCutoff = 10Performing Lab: see noteLC - [facility] LBUA Micro, reflex to culture Reviewed date:06/02/2025 11:12:43 AM Interpretation: Performing Lab: Notes/Report: [facility] ,Color UrineLT. YELLOWYELLOWClarity UrineSL CLOUDYCLEARSpecific Perry Urine 1.0101.005-1.025pH Urine6.55.0-9.0Protein UrineNEGATIVENEG/TRACE mg/dLGlucose Urine UANEGATIVENEGATIVE mg/dLBilirubin UrineNEGATIVENEGATIVEKetones Urine NEGATIVENEGATIVE mg/dLBlood UrineNEGATIVENEGATIVENitrite UrineNEGATIVENEGATIVE Urobilinogen Urine0.20.2-1.0 EU/dLLeukocyte Esterase UrineNEGATIVENEGATIVEWBC Urine0-2NONE SEEN #/HPFRBC UrineNONE SEEN0-2 #/HPFBacteria UrineTRACENONE SEEN #/HPFMucus UrineNONE SEENNONE SEENSquamous Epithelial Cell UrineMANYNONE/RARE #/LPFCrystals Seen?None SeenNone Seen #/HPFCast Seen?NONE SEENNONE SEEN #/LPF Urine Culture IndicatedNOPerforming Lab:see noteML - [facility] LB Poth Box Reviewed date:05/29/2025 02:19:29 PM Interpretation: Performing Lab: Notes/Report: [facility] ,BOX Test Sent OutunityBOX Test Reference LabunityBOX Test Date Sent05/29/25 Performing Lab:see noteML - [facility] LBCBC AUTO DIFF Reviewed date:06/02/2025 11:12:43 AM Interpretation: Performing Lab: Notes/Report: [facility] ,White Blood Count14.04.0-11.0 10 3/uLRed Blood Count3.924.20-5.40 10 6/uL Gqfsytowlr35.212.0-16.0 g/oBFcoqelxihh05.736.0-48.0 %Mean Corpuscular Okiigt02.0 81.0-99.0 fLMean Corpuscular Ggwwvnjdwf35.126.7-34.0 pgMean Corpuscular HGB Conc 36.229.9-35.2 g/dLRed Cell Distribution Width12.711.0-15.0 %Platelet Jjmjv127 150-450 10 3/uLMean Platelet Volume9.09.5-13.5 fLNeutrophils Percent Auto75.4 43.0-75.0 %Lymphocytes Percent Auto15.520.5-60.0 %Monocytes Percent Auto7.61.7- 12.0 %Eosinophils Percent Auto0.70.9-7.0 %Basophils Percent Auto0.30.2-2.0 % Immature Granulocytes Pct Auto0.50.0-0.5 %Neutrophils Absolute Auto10.61.4-6.5 10 3/uLLymphocytes Absolute Auto2.21.2-3.8 10 3/uLMonocytes Absolute Auto1.10.3- 0.8 10 3/uLEosinophils Absolute Auto0.10.0-0.7 10 3/uLBasophils Absolute Auto0.0 0.0-0.1 10 3/uLImmature Granulocytes Abs Auto0.070.00-0.03 10 3/uLPerforming Lab:see noteML - [facility] LBCBC AUTO DIFF Reviewed date:07/06/2025 09:22:39 AM Interpretation: Performing Lab: Notes/Report: [facility] ,White Blood Count13.44.0-11.0 10 3/uLRed Blood Count4.474.20-5.40 10 6/uL Xhekicdcwm74.512.0-16.0 g/fVDenymlyvoj96.036.0-48.0 %Mean Corpuscular Hacddq25.0 81.0-99.0 fLMean Corpuscular Ipufhkceqz44.226.7-34.0 pgMean Corpuscular HGB Conc 35.529.9-35.2 g/dLRed Cell Distribution Width12.511.0-15.0 %Platelet Dskhf163 150-450 10 3/uLMean Platelet Volume8.89.5-13.5 fLNeutrophils Percent Auto75.1 43.0-75.0 %Lymphocytes Percent Auto17.820.5-60.0 %Monocytes Percent Auto5.41.7- 12.0 %Eosinophils Percent Auto0.70.9-7.0 %Basophils Percent Auto0.30.2-2.0 % Immature Granulocytes Pct Auto0.70.0-0.5 %Neutrophils Absolute Auto10.11.4-6.5 10 3/uLLymphocytes Absolute Auto2.41.2-3.8 10 3/uLMonocytes Absolute Auto0.70.3- 0.8 10 3/uLEosinophils Absolute Auto0.10.0-0.7 10 3/uLBasophils Absolute Auto0.0 0.0-0.1 10 3/uLImmature Granulocytes Abs Auto0.100.00-0.03 10 3/uLPerforming Lab:see noteML - [facility] LBFREE T4 Reviewed date:07/06/2025 09:22:39 AM Interpretation: Performing Lab: Notes/Report: [facility] ,Free T41.140.76-1.46 ng/dLPerforming Lab:see noteML - [facility] LB MAGNESIUM Reviewed date:07/06/2025 09:22:39 AM Interpretation: Performing Lab: Notes/Report: [facility] ,Magnesium1.81.8-2.4 mg/dLPerforming Lab:see noteML - [facility] LB PROF 14(COMP METB) Reviewed date:07/06/2025 09:22:39 AM Interpretation: Performing Lab: Notes/Report: The [facility] ,Rhutnq709458-111 mmol/LPotassium3.53.5-5.1 mmol/WCvozqfpl85197-552 mmol/LCarbon Zhzjtdl43.921.0-32.0 mmol/LAnion Gap17.9Azwquuv8817-684 mg/dLBlood Urea Nitrogen 7.07.0-18.0 mg/dLCreatinine0.600.55-1.02 mg/dLEstimated GFR ( Peyton>60 >=60 mL/min/1.73m 2Estimated GFR (Non- Reyna>60>=60 mL/min/1.73m 2BUN Creatinine Ratio11.9Cfblssh9.68.5-10.1 mg/dLBilirubin Total0.50.2-1.0 mg/dL Aspartate Amino Yfyyorcphad8898-25 U/LAlanine Mafuumcbiliofgsm9827-91 U/L Alkaline Uqasaduvvrz4908-390 U/LTotal Protein7.96.4-8.2 g/dLAlbumin Level3.43.4- 5.0 g/dLGlobulin4.5Albumin Globulin Ratio0.8Performing Lab:see noteML - [facility] LBTSH Reviewed date:07/06/2025 09:22:39 AM Interpretation: Performing Lab: Notes/Report: [facility] ,Thyroid Stimulating Hormone2.9030.358-3.740 uIU/mLPerforming Lab:see noteML - [facility] LBUA RANDOM W or MICROSCOPIC Reviewed date:07/06/2025 09:22:39 AM Interpretation: Performing Lab: Notes/Report: [facility] ,Color UrineLT. YELLOWYELLOWClarity UrineCLEARCLEARSpecific Perry Urine1.015 1.005-1.025pH Urine8.05.0-9.0Protein UrineTRACENEG/TRACE mg/dLGlucose Urine UA NEGATIVENEGATIVE mg/dLBilirubin UrineNEGATIVENEGATIVEKetones Efcjl12CWDUKNMY mg/dLBlood UrineNEGATIVENEGATIVENitrite UrineNEGATIVENEGATIVEUrobilinogen Urine 0.20.2-1.0 EU/dLLeukocyte Esterase UrineTRACENEGATIVEWBC Urine0-2NONE SEEN #/HPF RBC Urine0-20-2 #/HPFBacteria UrineTRACENONE SEEN #/HPFMucus UrineNONE SEENNONE SEENSquamous Epithelial Cell UrineFEWNONE/RARE #/LPFCrystals Seen?None SeenNone Seen #/HPFCast Seen?NONE SEENNONE SEEN #/LPFUrine Culture IndicatedNOPerforming Lab:see noteML - [facility] LBIGP,Aptima HPV,Age Gdln Reviewed date:07/20/2025 10:26:51 AM Interpretation: Performing Lab: Notes/Report: SPATULA-ALONE ENDOCERVIX [facility] ,Age Gdln ACOG TestingNote. Age Ranjan ACCHRISTINE Lanny... 21-29 01 Other.............. Source.............Endocervix Clinician Provided Cytology Information Performed at: <-Panic Low,>-Panic High,A-Abnormal,AA-Critical Abnormal TESTS RESULT FLAG UNITS REF RANGE LAB Shannan Cerda MD, [address] [place] [address], [place] [address] No. of containers..01 ThinPrep Vial L-Low Normal,H-High Normal,LL-Alert Low,HH-Alert High FLAG LEGEND: 01 =Zaynab Nazario IGP, rfx Aptima HPV ASCUNote. Shannan Cerda MD, uterine cervix. It is not a diagnostic procedure and Satisfactory for evaluation. Endocervical and/or squamous metaplastic Performed at: =Zaynab Nazario This liquid based ThinPrep(R) pap test was interpreted Note: Note 02 DIAGNOSIS: 02 The HPV DNA reflex criteria were not met with this specimen result therefore, no HPV testing was performed. NEGATIVE FOR INTRAEPITHELIAL LESION OR MALIGNANCY. <-Panic Low,>-Panic High,A-Abnormal,AA-Critical Abnormal 02 WB [facility] Aravind L-Low Normal,H-High Normal,LL-Alert Low,HH-Alert High [address] [place] [address] [place] [address] . 02 TESTS RESULT FLAG UNITS REF RANGE LAB using the Vite(R) Genius(TM) Cervical Algorithm whole The Pap smear is a screening test designed to aid in the Specimen adequacy: 02 Roof Truss Detailer: Shannan Cerda MD, Phone: [phone] Test Methodology: Note 02 Performed at: [facility]. . 02 Maria Esther Michael, Community Education Specialist (ASCP) cancer. Both false-positive and false-negative reports do detection of premalignant and malignant conditions of the [address] [place] [address] [phone] Roof Truss Detailer: Shannan Cerda MD, Phone: [phone] slide imaging system. [address] [place] [address] [phone] Performed by: 02 Performed at: should not be used as the sole means of detecting cervical FLAG LEGEND: cells (endocervical component) are present. Performing Lab:see noteLC - [facility] LBUA RANDOM W or MICROSCOPIC Reviewed date:07/20/2025 10:26:22 AM Interpretation: Performing Lab: Notes/Report: [facility] ,Color UrineYELLOWYELLOWClarity UrineSL CLOUDYCLEARSpecific Perry Urine1.010 1.005-1.025pH Urine7.05.0-9.0Protein UrineTRACENEG/TRACE mg/dLGlucose Urine UA NEGATIVENEGATIVE mg/dLBilirubin UrineSMALLNEGATIVEKetones Ujqnf97DTOSRDCM mg/dL Blood UrineNEGATIVENEGATIVENitrite UrineNEGATIVENEGATIVEUrobilinogen Urine0.2 0.2-1.0 EU/dLLeukocyte Esterase UrineTRACENEGATIVEWBC Urine0-2NONE SEEN #/HPFRBC UrineNONE SEEN0-2 #/HPFBacteria UrineTRACENONE SEEN #/HPFMucus UrineNONE SEEN NONE SEENSquamous Epithelial Cell UrineMANYNONE/RARE #/LPFCrystals Seen?None SeenNone Seen #/HPFCast Seen?NONE SEENNONE SEEN #/LPFUrine Culture IndicatedNO Performing Lab:see noteML - [facility] LBDRUG SCREEN RAPID (URINE) Reviewed date:05/29/2025 02:19:29 PM Interpretation: Performing Lab: Notes/Report: [facility] ,Cannabinoid Screen UrinePOSITIVENEGATIVEPhencyclidine Screen UrineNEGATIVE NEGATIVECocaine Screen UrineNEGATIVENEGATIVEMethamphetamines Screen Urine NEGATIVENEGATIVEOpiate Screen UrineNEGATIVENEGATIVEAmphetamine Screen Urine NEGATIVENEGATIVEBenzodiazepines Screen UrineNEGATIVENEGATIVETricyclic Antidepressant UrinePOSITIVENEGATIVEMethadone Screen UrineNEGATIVENEGATIVE Barbiturates Screen UrineNEGATIVENEGATIVEOxycodone Screen UrineNEGATIVENEGATIVE Buprenorphine Screen UrineNEGATIVENEGATIVE mAMP (Methamphetamine): 500 ng/mL MTD (Methadone): 200 ng/mL BUP (Buprenorphine): 10 ng/mL THC (Cannabinoids): 50 ng/mL DRUG CLASS TEST SYSTEM CUT-OFF CONCENTRATIONS ARE JOHN (Cocaine): 150 ng/mL PCP (Phencyclidine): 25 ng/mL BAR (Barbiturates): 200 ng/mL OPI (Opiates): 100 ng/mL BZO (Benzodiazepines): 150 ng/mL OXY (Oxycodone): 100 ng/mL FOLLOWS: AMP (Amphetamine): 500 ng/mL TCA (Trycyclic Antidepressants): 300 ng/mL Performing Lab:see noteML - [facility] LBPREG QUANT HCG Reviewed date:04/21/2025 10:56:49 AM Interpretation: Performing Lab: Notes/Report: [facility] ,HCG Kzbmgpvvwzjo28 10,000-100,000 5-6 WEEKS 10,000-100,000 2-3 MONTHS 5-50 0.2-1 WEEK 100-5,000 2-3 WEEKS 1,000-50,000 4-5 WEEKS 500-10,000 3-4 WEEKS 50-500 1-2 WEEKS 15,000-200,000 6-8 WEEKS Performing Lab:see pj - [facility] LBHCG Qualitative* Reviewed date:04/20/2025 04:55:30 PM Interpretation: Performing Lab: Notes/Report: [facility] ,HCG QualitativePOSITIVENEGATIVEPerforming Lab:see note - [facility] LBPREG QUANT HCG Reviewed date:04/20/2025 04:55:30 PM Interpretation: Performing Lab: Notes/Report: [facility] ,HCG Rcrieavmsowo38 5-50 0.2-1 WEEK 500-10,000 3-4 WEEKS 15,000-200,000 6-8 WEEKS 50-500 1-2 WEEKS 10,000-100,000 5-6 WEEKS 100-5,000 2-3 WEEKS 10,000-100,000 2-3 MONTHS 1,000-50,000 4-5 WEEKS Performing Lab:see note - [facility] LBDHEA-Sulfate Reviewed date:03/25/2025 05:44:37 PM Interpretation: Performing Lab: Notes/Report: [facility] ,DHEA-Rqxxfdp576.0110.0-431.7 ug/dLPerforming Lab:see note - [facility] LBFSH Reviewed date:03/25/2025 05:44:37 PM Interpretation: Performing Lab: Notes/Report: [facility] ,FSH9.3. mIU/mL Adult Female Range Roof Truss Detailer: Ilya Manjarrez PhD, Phone: [phone] Ovulation phase 4.7 - 21.5 Luteal phase 1.7 - 7.7 Performed at: - [facility] [place] Follicular phase 3.5 - 12.[address] [place] [address] [phone] Postmenopausal 25.8 - 134.8 Performing Lab:see noteLC - [facility] LBLuteinizing Hormone(LH) Reviewed date:03/25/2025 05:44:37 PM Interpretation: Performing Lab: Notes/Report: [facility] ,Luteinizing Hormone(LH)4.4. mIU/mL Adult Female Range Luteal phase 1.0 - 11.4 Follicular phase 2.4 - 12.6 Ovulation phase 14.0 - 95.6 Postmenopausal 7.7 - 58.5 Performing Lab:see noteLC - [facility] LBCBC AUTO DIFF Reviewed date:03/24/2025 02:44:38 PM Interpretation: Performing Lab: Notes/Report: [facility] ,White Blood Count9.54.0-11.0 10 3/uLRed Blood Count4.544.20-5.40 10 6/uL Stslrayeww83.912.0-16.0 g/bKPwvmdyfjhn18.136.0-48.0 %Mean Corpuscular Jrlgex16.1 81.0-99.0 fLMean Corpuscular Jsozzuhtbp17.626.7-34.0 pgMean Corpuscular HGB Conc 35.529.9-35.2 g/dLRed Cell Distribution Width12.411.0-15.0 %Platelet Tyjrv005 150-450 10 3/uLMean Platelet Volume9.39.5-13.5 fLNeutrophils Percent Auto57.4 43.0-75.0 %Lymphocytes Percent Auto31.620.5-60.0 %Monocytes Percent Auto7.51.7- 12.0 %Eosinophils Percent Auto2.80.9-7.0 %Basophils Percent Auto0.40.2-2.0 % Immature Granulocytes Pct Auto0.30.0-0.5 %Neutrophils Absolute Auto5.51.4-6.5 10 3/uLLymphocytes Absolute Auto3.01.2-3.8 10 3/uLMonocytes Absolute Auto0.70.3-0.8 10 3/uLEosinophils Absolute Auto0.30.0-0.7 10 3/uLBasophils Absolute Auto0.00.0- 0.1 10 3/uLImmature Granulocytes Abs Auto0.030.00-0.03 10 3/uLPerforming Lab:see noteML - [facility] LB Reason For Referral No Information Medications Medication SIG (Take, Route, Frequency, Duration) Notes Start Date End Date Status Virasal 27.5 % 1 application as needed External ly Once a day 4ActiveVraylar 3 MG1 capsule Oral Once a day; Duration: 30 daysActive Venlafaxine HCl ER 75 MG1 capsule with food Orally Once a day; Duration: 30 days 4Active Social History Alcohol Screen (Audit-C) Question Answer Notes Did you have a drink containing alcohol in the p ast year? Yes How often did you have 6 or more drinks on one occasion in the past year?Never (0 point)How many drinks did you have on a typical day when you were drinking in the past year?3 or 4 drinks (1 point)How often did you have a drink containing alcohol in the past year?Less than monthly (1 point)Qjzaxs3Xpgwbebbnegbxx NegativeAUDIT-C (Standard) Question Answer Notes Did you have a drink containing alcohol in the p ast year? Yes How often did you have six or more drinks on one occasion in the past year?Less than monthly (1 point)How many drinks did you have on a typical day when you were drinking in the past year?3 or 4 drinks (1 point)How often did you have a drink containing alcohol in the past year?2 to 3 times a week (3 points)Points5 InterpretationPositive Problems Problem Type SNOMED Code ICD Code Onset Dates Problem Status W/U Status Risk Notes Problem Disorder of female g enital organs (522562487) Other specified conditions associated with female genital organs and menstrual cycle (N94.89) ActiveconfirmedProblemSomnolence (15083677)Somnolence (R40.0)Activeconfirmed ProblemSleep apnea (29655709)Severe sleep apnea (G47.30)ActiveconfirmedProblem Transsexual (finding) (993998467)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)ActiveconfirmedProblem Mixed anxiety and depressive disorder (484057970)Anxiety and depression (F41.8) Activeconfirmed Encounters Encounter Location Date Provider Diagnosis [facility] [address] [place] [address] 08/08/2024 Carole Desouza Anxiety and depression F41.8 [facility] [address] [place] [address] 08/11/2024 Carole Desouza Assessments Encounter Date Diagnosis [...] Date [employer] [place] [address] [place] [id number] Urvashi Tristan - patient is the insured Medical (General) History Medical History History ICD Code Severe sleep apnea G47.30 Hospitalization History Reason Date(Month/Year) [facility] [place] 1 08/2022
--- OUTSIDE RECORDS SUMMARY | 2025-08-04 14:58 | XMS_ITS | Encounter Summary ---
Author Organization [facility] Address [address] [place] [address] Care Team Providers Care Receiving Clerk Name Role Phone Helio Campos MD Primary Care Provider [phone] Breana Loving [employer]ERCIAL [employer] SOFTWARE DEVELOPER Unavailable [phone] Encounter Details DateTypeDepartmentCare Team (Latest Contact Info)Dgioyqlakpf43/04/2025Telephone [facility] [address] [place], [phone] Betsy Tate PA [address] [place], [place] [address] Social History Tobacco UseTypesPacks/DayYears UsedDateSmoking Tobacco: NeverSmokeless Tobacco: NeverAlcohol UseStandard Drinks/WeekCommentsNever0 (1 standard drink = 0.6 oz pure alcohol)Estimated Date of KivtgcakJzmxxwtcCvj84/03/2026Based on UltrasoundSex and Gender InformationValueDate RecordedSex Assigned at BirthNot on fileLegal YpgImdzhb60/15/2023 11:46 PM EDTGender IdentityNot on fileSexual OrientationNot on filedocumented as of this encounter Miscellaneous Notes * Addendum Note - Zachery Bolton LPN - 08/04/2025 2:57 PM ESTAddended by: ZACHERY BOLTON on: 08/04/2025 02:57 PM Modules accepted: Orders * Telephone Encounter - Zachery Bolton LPN - 08/04/2025 2:52 PM EST I literally just called you to well, I got a call back to get my prescription refilled and my pharmacy is literally saying that they will not refill it until the . I need it before then. I that is literally a week away. How am I supposed to go a week without it if There is anything you can do, just call me back up. [phone]. Patient call was returned and she was advised that if insurance is stating that unfortunately we can not override that. She states that it is insurance but she needs this. she was advised that she can see what the [employer] would be and pay that way or we can send in Phenergan to see if this will help. PVU and advised phenergan would be sent at this time. * Telephone Encounter - Zachery Bolton LPN - 08/04/2025 2:34 PM EST I was just calling because I needed to refill on Zofran and Dr. Meyer said that if whenever I need it, I need to call the office and ask you guys, my number is [phone] again. Patient call was returned and she was advised that script was sent at this time and will have 2 refills for her to have and call the pharmacy when needed. PVU documented in this encounter Plan of Treatment DateTypeDepartmentCare Team (Latest Contact Info)Fscpujqxxfp32/18/2025 10:00 AM ESTAncillary Procedure [facility] [address] [place] [phone] 08/18/2025 11:10 AM ESTRoutine LEA [facility] [address] [place] [phone] Cuong Diez, DO [address] [place] [address] documented as of this encounter Visit Diagnoses Diagnosis Nausea Nausea alone documented in this encounter Care Teams Team MemberRelationshipSpecialtyStart DateEnd Date Helio Campos MD [address] [place] [address] [facility] - [facility] Breana Loving NP [address] [place] [address] PCP - [facility]12/30/2510documented as of this encounter
--- OUTSIDE RECORDS SUMMARY | 2025-08-04 14:58 | XMS_ITS | Clinical Summary ---
Author Organization [facility] Healthcare Address [address] [place] [address] Care Team Providers Care Fisheries Management Biologist Name Role Phone Helio Campos MD Primary Care Provider [phone] Inder Breana N LOAN OFFICER ASSISTANT Unavailable [phone] Allergies No known active allergies Medications MedicationSigDispense QuantityRefillsLast FilledStart DateEnd DateStatus Zoloft 25 MG tablet Take 25 mg by mouth Daily5Active QUEtiapine (SEROquel) 25 MG tablet Take 50 mg by mouth at efqohfz90/15/2025Active nystatin (Mycostatin) 640677 UNIT/GM powder Indications:TineaApply topically in the morning and in the evening and before bedtime. 15 g /6Active ondansetron ODT (Zofran-ODT) 4 MG disintegrating tablet Indications:NauseaTake 1 tablet (4 mg) by mouth every 6 (six) hours if needed for nausea or vomiting 30 tablet 5Active promethazine (Phenergan) 12.5 MG tablet Indications:NauseaTake 1 tablet (12.5 mg) by mouth every 6 (six) hours if needed for nausea or vomiting for up to 30 doses Take 1 tablet by mouth every 6 hours as needed for nausea. 30 tablet 5Active metroNIDAZOLE (Flagyl) 500 MG tablet Indications:BV (bacterial vaginosis)Take 1 tablet (500 mg) by mouth in the morning and 1 tablet (500 mg) before bedtime. Do all this for 7 days. Do not drink alcohol while taking this medication. 14 tablet Expired Active Problems ProblemNoted DateDiagnosed DateBipolar rmytwadf36/15/2025orderline personality bbqvqleg13/15/2025Estimated Date of CysnzqeaWvpzvjziWdj17/03/2026ased on Ultrasound Encounters DateTypeDepartmentCare IcfdQfdmoiynnwl83/04/2025Telephone [facility] Hwang [facility] [place] [address] Betsy Tate PA 07/14/2025Patient Outreach [facility] [address] [place] [address] Betsy Babcock LPN 07/14/2025Telephone [facility] Ella [place]EL[address]EN [address] [place] [address] Betsy Tate PA 07/13/2025 2:30 PM EDTRoutine [facility] Ella [address]wang [address] [place] [address] Betsy Tate PA Tinea (Primary Dx); Second trimester ([facility]); 15 weeks gestation of ([facility]); Well woman exam with routine gynecological exam; Exposure to STD; Need for maternal serum alpha-protein (MSAFP) screening ([facility]); Screening, , for anatomic survey ([facility])07/13/2025External Result Encounter NOMS External Department Unsolicited Betsy Tate PA 07/13/2025bstract [facility] Ella Hwang [facility] [place] [address] Cuong Diez DO 07/13/2025amboo flowsheet [facility] [place] [address] Betsy Tate PA 07/10/2025bstract [facility] [address] [place] [address] Betsy Babcock LPN 07/08/2025Telephone [facility] [place] [facility] [address] [facility] [place] [address] Beata Greenberg MA 07/06/2025Telephone [facility] [place] [facility] [address] [facility] [place] [address] Beata Greenberg MA 06/15/2025 10:40 AM EDTRoutine [facility] [place] [facility] [address] [facility] [place] [address] Cuong Diez, DO Second trimester ([facility]); First trimester ([facility]); 11 weeks gestation of ([facility])5Bamboo flowsheet [facility] [address] [facility] [place] [address] Cuong Diez, DO 5Abstract [facility] [address] [place] [address] [place] [address] Cuong Diez, DO 5Abstract [facility] [place] [facility] [address] [place] [address] [place] [address] Cuong Diez, DO 5Abstract [facility] [place] [facility] [address] [facility] [place] [address] Cuong Diez, DO 5Clinisync Result Encounter NOMS External Department Unsolicited Columba Temple NP 05/15/2025 10:00 AM EDTInitial [facility] [address] [facility] [place] [address] GA: 7w0d05/15/2025 9:30 AM EDTAncillary Procedure [facility] [address] [facility] [place] [address] Missed menses; Positive urine test ([facility])from Last 3 Months Family History RelationNameStatusCommentsBrotherAliveFatherAliveMotherAliveSisterAlive Social History Tobacco UseTypesPacks/DayYears UsedDateSmoking Tobacco: NeverSmokeless Tobacco: Never Tobacco Cessation:Counseling Given: Not Answered Alcohol UseStandard Drinks/WeekCommentsNever0 (1 standard drink = 0.6 oz pure alcohol)Estimated Date of ZllbtlvbSgqkfsacOug21/03/2026ased on UltrasoundSex and Gender InformationValueDate RecordedSex Assigned at BirthNot on fileLegal DsvDgpgkv64/15/2023 11:46 PM EDTGender IdentityNot on fileSexual OrientationNot on file Last Filed Vital Signs Vital SignReadingTime TakenCommentsBlood Hokrkmqe530/7207/13/2025 3:04 PM EDT Acfro24181/20/2025 9:36 AM VRJXewgnsdefar53.1 ??C (98.7 ??F)04/19/2025 9:36 AM EDTRespiratory Rate--Oxygen Agrtithiuu91%04/19/2025 9:36 AM EDTInhaled Oxygen Concentration--Lfibmb002 kg (267 lb)07/13/2025 3:04 PM GLGWwtibn997.9 cm (4' 11 )03/23/2025 9:02 AM EDTBody Mass Index53.9303/23/2025 9:02 AM EDT Plan of Treatment DateTypeDepartmentCare Team (Latest Contact Info)Asyliqpbkrp95/18/2025 10:00 AM ESTAncillary Procedure [facility] Ella [address] [address] [place] [address] 08/18/2025 11:10 AM ESTRoutine NOMOsiel NIELSEN [address] [place] [address] Cuong Diez DO [address], [place] [id number] Health MaintenanceDue DateLast DoneCommentsCOVID-19 Vaccine ( season) 2025Influenza Vaccine (#1), 06/13/2013, 07/25/2012, Additional history existsPneumococcal Vaccine: Pediatrics (0 to 5 Years) and At- Risk Patients (6 to 64 Years)Aged OutNo longer eligible based on patient's age to complete this topic Procedures Procedure NamePriorityDate/TimeAssociated DiagnosisCommentsCULTURE, URINE, SBUMPBGNgjrgso98/14/2025 9:04 AM EDT Missed menses RECURRENT VAGINITIS (HTRX)Rdnvrha6307/13/2025 3:44 PM EDT POCT URINALYSIS TGLWGCWCCkxshwj82/13/2025 3:16 PM EDT Second trimester ([facility]) POCT URINALYSIS OGOXRGPCHvutlwk22/15/2025 11:00 AM EDT Second trimester ([facility]) First trimester ([facility]) 11 weeks gestation of ([facility]) HBSAG IULZGLSkoices09/29/2025 1:30 PM EDT RAPID PLASMA REAGIN, CKCUNAjnboge60/29/2025 1:30 PM EDT HCV ANTIBODY RFX TO QUANT XOZKnewffm16/29/2025 1:30 PM EDT ALL RUBELLA IGG PGWvcomba58/29/2025 1:30 PM EDT HIV AB/P24 AG WITH NQMDQDLlhiwnk25/29/2025 1:30 PM EDT MLR HEMOGLOBIN H7NLcbmfjg94/29/2025 1:30 PM EDT HMHP ANTIBODY QHKhuzxkf18/29/2025 1:30 PM EDT ALL TYPE AND AJCEUWUpfziag08/29/2025 1:30 PM EDT ALL CBC WITH AUTO WAVZHsggddz62/29/2025 1:30 PM EDT BOX NMQOPqvidys04/29/2025 1:30 PM EDT CANNABINOID CONF, MS, FYYnwurst68/29/2025 12:58 PM EDT ALL MISCELLANEOUS BAJYGfkrton08/29/2025 12:58 PM EDT TBH DRUG SCREEN RAPID (URINE)Xgcwioz9905/29/2025 12:58 PM EDT POCT URINALYSIS IKOZESJULplcgiy46/15/2025 10:10 AM EDT Missed menses POCT , HJIYBMtuycrq79/15/2025 10:10 AM EDT Missed menses US OB TBVCBVEGNUHKIovnsfa17/15/2025 10:06 AM EDT Missed menses Positive urine test ([facility]) from Last 3 Months Results * Urine culture (07/14/2025 9:04 AM EDT)Specimen (Source)Anatomical Location / LateralityCollection Method / VolumeCollection TimeReceived TimeUrineUrine specimen obtained by clean catch procedure / Unknown Narrative Authorizing ProviderResult TypeResult StatusCorey [facility] MICROBIOLOGY - GENERAL ORDERABLESFinal ResultPerforming OrganizationAddressCity/State/ZIP Code Phone Number EXTERNAL LAB * (ABNORMAL) RECURRENT VAGINITIS (HTRX) (07/13/2025 3:44 PM EDT)ComponentValue Ref RangeTest MethodAnalysis TimePerformed AtPathologist SignatureATOPOBIUM SSXKHSJ946.961 - 24.689 ppm07/14/2025 5:34 AM EDTHealth[facility] ATOPOBIUM VAGINAENot Zfbpnlwq39.961 - 24.689 ppm07/14/2025 5:34 AM EDT [facility]PortBVAB 2,3 (BACTERIAL VAGINOSIS ASSOCIATED BACTERIA 2, 3); MOBILUNCUS SPP26.603(A)19.961 - 24.689 ppm07/14/2025 5:34 AM EDT [facility]PortBVAB 2,3 (BACTERIAL VAGINOSIS ASSOCIATED BACTERIA 2, 3); MOBILUNCUS SPPDetected(A)19.961 - 24.689 ppm07/14/2025 5:34 AM EDT [facility] LabPortCANDIDA ALBICANS, PARAPSILOSIS, SRZXGAVZIP963.000 - 30.347 ppm07/14/2025 5:34 AM EDTHealthTrackRx at LabPortCANDIDA ALBICANS, PARAPSILOSIS, TROPICALISNot Tbecbkdz72.000 - 30.347 ppm07/14/2025 5:34 AM EDT [facility]PortCANDIDA RMEIUIJF576.000 - 31.618 ppm07/14/2025 5:34 AM EDTHealthTrackRx at LabPortCANDIDA GLABRATANot Pertbavf44.000 - 31.618 ppm 07/14/2025 5:34 AM EDTHealthTrackRx at LabPortCANDIDA ANSJGR132.000 - 30.873 ppm07/14/2025 5:34 AM EDTHealthTrackRx at LabPortCANDIDA KRUSEINot Detected 23.000 - 30.873 ppm07/14/2025 5:34 AM EDTHealth[facility]Rx at [facility]CHL[facility]YDIA ADBGQLNSLPX710.000 - 31.586 ppm07/14/2025 5:34 AM EDTHealthTrackRx at [facility] CHLAMYDIA TRACHOMATISNot Ykauithd10.000 - 31.586 ppm07/14/2025 5:34 AM EDT [facility] LabPortGARDNERELLA VQEHOBLFT672.961 - 24.689 ppm07/14/2025 5:34 AM EDTHealthTrackRx at LabPortGARDNERELLA VAGINALISNot Yoboefev66.961 - 24.689 ppm07/14/2025 5:34 AM EDTHealthTrackRx at [facility] HospitalMEGASPHAERA (TYPES 1, 2)019.961 - 24.689 ppm10 5:34 AM EDTHealth[facility] MEGASPHAERA (TYPES 1, 2)Not Wzjlnsfa90.961 - 24.689 ppm07/14/2025 5:34 AM EDT [facility] at LabPortNEISSERIA BPMMFUVHWLH540.000 - 32.587 ppm07/14/2025 5:34 AM EDTHealthTrackRx at LabPortNEISSERIA GONORRHOEAENot Pjcachly21.000 - 32.587 ppm07/14/2025 5:34 AM EDTHealthTrackRx at LabPortTRICHOMONAS VAGINALIS0 23.000 - 31.995 ppm07/14/2025 5:34 AM EDTHealthTrackRx at LabPortTRICHOMONAS VAGINALISNot Pzuebiei75.000 - 31.995 ppm07/14/2025 5:34 AM EDTHealthTrackRx at LabPortMYCOPLASMA VIBMMIKTAF609.961 - 24.689 ppm07/14/2025 5:34 AM EDT [facility] LabPortMYCOPLASMA GENITALIUMNot Zdchhevx99.961 - 24.689 ppm 07/14/2025 5:34 AM EDTHealthTrackRx at LabPortMYCOPLASMA AANJMXM229.961 - 24.689 ppm07/14/2025 5:34 AM EDTHealthTrackRx at LabPortMYCOPLASMA HOMINISNot Jivlwhxt92.961 - 24.689 ppm07/14/2025 5:34 AM EDTHealth[facility] UREAPLASMA JEFCWLSHHKH977.961 - 24.689 ppm07/14/2025 5:34 AM EDTHealthTrackRx at LabPortUREAPLASMA UREALYTICUMNot Yezrmeoa44.961 - 24.689 ppm07/14/2025 5:34 AM EDTHealthTrackRx at LabPortUREAPLASMA KAOKBN026.961 - 24.689 ppm07/14/2025 5:34 AM EDTHealthTrackRx at LabPortUREAPLASMA PARVUMNot Bawjujje80.961 - 24.689 ppm07/14/2025 5:34 AM EDTHealthTrackRx at LabPortSpecimen (Source) Anatomical Location / LateralityCollection Method / VolumeCollection Time Received GwdjBwfkdz76/13/2025 3:44 PM EDT1 1:52 AM EDT Narrative Authorizing ProviderResult TypeResult StatusBetsy Bebeto PALAB BLOOD ORDERABLES Final ResultPerforming OrganizationAddressCity/State/ZIP CodePhone Number [facility] [address] [address] * POCT urinalysis dipstick manually resulted (07/13/2025 3:16 PM EDT) Only the most recent of3 resultswithin the time period is included. ComponentValueRef RangeTest MethodAnalysis TimePerformed AtPathologist Signature Color, UAYellowClarity, UAClearGlucose, UANegativeNegative - 2000(110) ++++ mg/dLBilirubin, UANegativeNegative - 4(70) +++ mg/dLKetones, UANegativeNegative - 160(16) ++++ mg/dLSpec Grav, UA1.0201 - 1.03Blood, UANegativeNegative - 50 Yogesh/mcLpH, UA6.05 - 9Protein, UANegativeNegative - 2000(20) ++++ mg/dL Urobilinogen, UA1.00.2 - 12 mg/dLLeukocytes, UANegativeNegative - 500+++ Jaci/mcL Nitrite, UANegativeNegative - PositiveSpecimen (Source)Anatomical Location / LateralityCollection Method / VolumeCollection TimeReceived MgfyQggfo43/13/2025 3:16 PM EDT Narrative Authorizing ProviderResult TypeResult StatusBetsy Tate PAPOINT OF CARE TEST ENTER/EDIT ORDERABLESFinal Result * BOX TEST (05/29/2025 1:30 PM EDT)ComponentValueRef RangeTest MethodAnalysis TimePerformed AtPathologist SignatureBOX TEST SENT MKLbawxtODFFOT7sdhefCTJRCP7 05/29/25TBHSpecimen (Source)Anatomical Location / LateralityCollection Method / VolumeCollection TimeReceived Time05/29/2025 1:30 PM EDT05/29/2025 1:38 PM EDT Narrative [facility] - 05/29/2025 1:47 PM EDT Authorizing ProviderResult TypeResult StatusKristina Windy NPLAB BLOOD ORDERABLESFinal ResultPerforming OrganizationAddressCity/State/ZIP CodePhone Number [facility] * HBSAG SCREEN (05/29/2025 1:30 PM EDT)ComponentValueRef RangeTest Method Analysis TimePerformed AtPathologist SignatureHBSAG SCREENNegativeNegativeTBH Comment: Performed at: ??[address] ??[id number] Magnetic Resonance Technologist: Ilya Manjarrez PhD, Phone: ??[phone] Specimen (Source)Anatomical Location / LateralityCollection Method / Volume Collection TimeReceived Time05/29/2025 1:30 PM EDT05/29/2025 1:38 PM EDT Narrative [facility] - 05/30/2025 12:08 PM EDT Authorizing ProviderResult TypeResult StatusCorey Chary DOLAB BLOOD ORDERABLES Final ResultPerforming OrganizationAddressCity/State/ZIP CodePhone Number [facility] * RAPID PLASMA REAGIN, QUANT (05/29/2025 1:30 PM EDT)ComponentValueRef RangeTest MethodAnalysis TimePerformed AtPathologist SignatureRAPID PLASMA REAGIN, QUANT Non ReactiveNonRea<1:1 titerTBHComment: Please Note: This test does not meet current guidelines for screening and diagnosis of syphilis. This test is intended for following treatment response in patients being treated for syphilis infection. To screen for syphilis infection, a reflex cascade that includes both RPR and a treponema-specific assay should be utilized, such as Treponema pallidum (Syphilis) Screening Lucas (608607) or Rapid Plasma Reagin (RPR) Test With Reflex to Quantitative RPR and Confirmatory Treponema pallidum Antibodies (987460). Performed at: ??[address] ??[id number] Magnetic Resonance Technologist: Ilya Manjarrez PhD, Phone: ??[phone] Specimen (Source)Anatomical Location / LateralityCollection Method / Volume Collection TimeReceived Time05/29/2025 1:30 PM EDT05/29/2025 1:38 PM EDT Narrative [facility] - 05/30/2025 12:08 PM EDT Authorizing ProviderResult TypeResult StatusCorey Chary DOLAB BLOOD ORDERABLES Final ResultPerforming OrganizationAddAllegheny Valley Hospitalty/State/ZIP CodePhone Number [facility] * HIV AB/P24 AG WITH REFLEX (05/29/2025 1:30 PM EDT)ComponentValueRef RangeTest MethodAnalysis TimePerformed AtPathologist SignatureHIV AB/P24 AG SCREENNon ReactiveNon ReactiveTBHComment: HIV-1/HIV-2 antibodies and HIV-1 p24 antigen were NOT detected. There is no laboratory evidence of HIV infection. HIV Negative Performed at: ??[address] ??[id number] Magnetic Resonance Technologist: Ilya Manjarrez PhD, Phone: ??[phone] Specimen (Source)Anatomical Location / LateralityCollection Method / Volume Collection TimeReceived Time05/29/2025 1:30 PM EDT05/29/2025 1:38 PM EDT Narrative [facility] - 05/30/2025 4:07 AM EDT Authorizing ProviderResult TypeResult StatusCorey Chary DOLAB BLOOD ORDERABLES Final ResultPerforming [facility] FoundationAdd[facility] CodePhone Number [facility] * HCV ANTIBODY RFX TO QUANT PCR (05/29/2025 1:30 PM EDT)ComponentValueRef Range Test MethodAnalysis TimePerformed AtPathologist SignatureHCV ABNon ReactiveNon ReactiveTBHINTERPRETATION:Comment.TBHComment: Not infected with HCV unless early or acute infection is suspected (which may be delayed in an immunocompromised individual), or other evidence exists to indicate HCV infection. Performed at: ??[address] ??[id number] Magnetic Resonance Technologist: Ilya Manjarrez PhD, Phone: ??[phone] Specimen (Source)Anatomical Location / LateralityCollection Method / Volume Collection TimeReceived Time05/29/2025 1:30 PM EDT05/29/2025 1:38 PM EDT Narrative [facility] - 05/30/2025 7:09 AM EDT Authorizing ProviderResult TypeResult StatusCorey Chary DOLAB BLOOD ORDERABLES Final ResultPerforming OrganizationAddAllegheny Valley Hospitalty/[facility]/ZIP CodePhone Number [facility] * MLR HEMOGLOBIN A1C (05/29/2025 1:30 PM EDT)ComponentValueRef RangeTest Method Analysis TimePerformed AtPathologist SignatureGLYCOHEMOGLOBIN A1C4.94.5 - 6.2 %TBHComment: ADA RECOMMENDED LIMIT 4.0 - 6.0 ADA THERAPEUTIC TARGET < 7.0 ACTION SUGGESTED > 7.0 ESTIMATED AVERAGE RXYZJNV37vh/dLTBHSpecimen (Source)Anatomical Location / LateralityCollection Method / VolumeCollection TimeReceived Time05/29/2025 1:30 PM EDT05/29/2025 1:38 PM EDT Narrative [facility] - 05/29/2025 2:52 PM EDT Authorizing ProviderResult TypeResult StatusCorey Chary DOCLINISYNCFinal Result Performing OrganizationAddAllegheny Valley Hospitalty/State/ZIP CodePhone Number [facility] * HMHP ANTIBODY ID (05/29/2025 1:30 PM EDT)ComponentValueRef RangeTest Method Analysis TimePerformed AtPathologist SignatureTBH ANTIBODY ID PANELD RHIGTBH Comment: PROBABLE ANTI-D DUE TO RHIG ADMINISTRATION ON 05/14/25. FURTHER WORKUP AT [employer]SCIANS REQUEST. Specimen (Source)Anatomical Location / LateralityCollection Method / Volume Collection TimeReceived Time05/29/2025 1:30 PM EDT05/29/2025 1:38 PM EDT Narrative [facility] - 05/29/2025 2:38 PM EDT [facility] , ?? Authorizing ProviderResult TypeResult StatusCorey Chary DOCLINISYNCFinal Result Performing OrganizationAddPrime Healthcare Services/State/ZIP CodePhone Number [facility] * ALL TYPE AND SCREEN (05/29/2025 1:30 PM EDT)ComponentValueRef RangeTest Method Analysis TimePerformed AtPathologist SignatureBLOOD TYPEB NegativeTBHANTIBODY SCREENPOSITIVETBHSpecimen (Source)Anatomical Location / LateralityCollection Method / VolumeCollection TimeReceived Time05/29/2025 1:30 PM EDT05/29/2025 1:38 PM EDT Narrative [facility] - 05/29/2025 2:38 PM EDT [facility] , ?? Authorizing ProviderResult TypeResult StatusCorey Chary DOCLINISYNCFinal Result Performing OrganizationAddressCity/State/ZIP CodePhone Number [facility] * ALL RUBELLA IGG AB (05/29/2025 1:30 PM EDT)ComponentValueRef RangeTest Method Analysis TimePerformed AtPathologist SignatureRUBELLA ANTIBODIES, IGG1.03 Immune >0.99 indexTBHComment: Non-immune <0.90 ?Equivocal ??0.90 - 0.99 Immune >0.99 Performed at: ?? - [facility] [address] ??[id number] Magnetic Resonance Technologist: Ilya Manjarrez PhD, Phone: ??[phone] Specimen (Source)Anatomical Location / LateralityCollection Method / Volume Collection TimeReceived Time05/29/2025 1:30 PM EDT05/29/2025 1:38 PM EDT Narrative [facility] - 05/30/2025 7:09 AM EDT Authorizing ProviderResult TypeResult StatusCorey Chary DOCLINISYNCFinal Result Performing OrganizationAddressCity/State/ZIP CodePhone Number [facility] * (ABNORMAL) ALL CBC WITH AUTO DIFF (05/29/2025 1:30 PM EDT)ComponentValueRef RangeTest MethodAnalysis TimePerformed AtPathologist SignatureTBH WBC11.3(H) 4.0 - 11.0 10 3/uLTBHTBH RBC4.244.20 - 5.40 10 6/uLTBHTBH HGB12.912.0 - 16.0 g/dLTBHTBH HCT36.536.0 - 48.0 %TBHTBH MCV86.181.0 - 99.0 fLTBHTBH MCH30.426.7 - 34.0 pgTBHTBH MCHC35.3(H)29.9 - 35.2 g/dLTBHTBH RDW13.011.0 - 15.0 %TBHTBH QOW042546 - 450 10 3/uLTBHTBH MPV9.0(L)9.5 - 13.5 fLTBHNEUTROPHILS PERCENT AUTO61.843.0 - 75.0 %TBHLYMPHOCYTES PERCENT AUTO28.620.5 - 60.0 %TBHMONOCYTES PERCENT AUTO7.11.7 - 12.0 %TBHTBH EO %1.70.9 - 7.0 %TBHBASOPHILS PERCENT AUTO 0.40.2 - 2.0 %TBHIMMATURE GRANULOCYTES PCT AUTO0.40.0 - 0.5 %TBHNEUTROPHILS ABSOLUTE AUTO7.0(H)1.4 - 6.5 10 3/uLTBHLYMPHOCYTES ABSOLUTE AUTO3.21.2 - 3.8 10 3/uLTBHMONOCYTES ABSOLUTE AUTO0.80.3 - 0.8 10 3/uLTBHTBH EO #0.20.0 - 0.7 10 3/uLTBHBASOPHILS ABSOLUTE AUTO0.10.0 - 0.1 10 3/uLTBHIMMATURE GRANULOCYTES ABS AUTO0.04(H)0.00 - 0.03 10 3/uLTBHSpecimen (Source)Anatomical Location / LateralityCollection Method / VolumeCollection TimeReceived Time05/29/2025 1:30 PM EDT05/29/2025 1:38 PM EDT Narrative [facility] - 05/29/2025 1:54 PM EDT Authorizing ProviderResult TypeResult StatusCorey Chary DOCLINISYNCFinal Result Performing OrganizationAddressCity/State/ZIP CodePhone Number [facility] TB * (ABNORMAL) TBH DRUG SCREEN RAPID (URINE) (05/29/2025 12:58 PM EDT)Component ValueRef RangeTest MethodAnalysis TimePerformed AtPathologist Signature CANNABINOID SCREEN URINEPOSITIVE(A)NEGATIVETBHPHENCYCLIDINE SCREEN URINE NEGATIVENEGATIVETBHCOCAINE SCREEN URINENEGATIVENEGATIVETBHMETHAMPHETAMINES SCREEN URINENEGATIVENEGATIVETBHOPIATE SCREEN URINENEGATIVENEGATIVETBH AMPHETAMINE SCREEN URINENEGATIVENEGATIVETBHBENZODIAZEPINES SCREEN URINE NEGATIVENEGATIVETBHTRICYCLIC ANTIDEPRESSANT URINEPOSITIVE(A)NEGATIVETBH METHADONE SCREEN URINENEGATIVENEGATIVETBHBARBITURATES SCREEN URINENEGATIVE NEGATIVETBHOXYCODONE SCREEN URINENEGATIVENEGATIVETBHBUPRENORPHINE SCREEN URINE NEGATIVENEGATIVETBHComment: DRUG CLASS TEST SYSTEM CUT-OFF CONCENTRATIONS ARE FOLLOWS: AMP (Amphetamine): 500 ng/mL BAR (Barbiturates): 200 ng/mL BZO (Benzodiazepines): 150 ng/mL BUP (Buprenorphine): 10 ng/mL JOHN (Cocaine): 150 ng/mL mAMP (Methamphetamine): 500 ng/mL MTD (Methadone): 200 ng/mL OPI (Opiates): 100 ng/mL OXY (Oxycodone): 100 ng/mL PCP (Phencyclidine): 25 ng/mL THC (Cannabinoids): 50 ng/mL TCA (Trycyclic Antidepressants): 300 ng/mL Specimen (Source)Anatomical Location / LateralityCollection Method / Volume Collection TimeReceived Time05/29/2025 12:58 PM EDT05/29/2025 1:38 PM EDT Narrative [facility] - 05/29/2025 2:02 PM EDT Authorizing ProviderResult TypeResult StatusCorey Chary DOCLINISYNCFinal Result Performing OrganizationAddressty/State/ZIP CodePhone Number [facility] * CANNABINOID CONF, MS, UR (05/29/2025 12:58 PM EDT)ComponentValueRef RangeTest MethodAnalysis TimePerformed AtPathologist SignatureCANNABINOIDPOSITIVETBH CARBOXY THC CONF, MS, UR>750 ng/mLTBHComment:Cutoff = 10Specimen (Source) Anatomical Location / LateralityCollection Method / VolumeCollection Time Received Time05/29/2025 12:58 PM EDT05/29/2025 2:04 PM EDT Narrative [facility] - 06/04/2025 3:45 PM EDT Authorizing ProviderResult TypeResult StatusCorey Chary DOLAB BLOOD ORDERABLES Final ResultPerforming OrganizationAddressty/State/ZIP CodePhone Number [facility] * ALL MISCELLANEOUS TEST (05/29/2025 12:58 PM EDT)ComponentValueRef RangeTest MethodAnalysis TimePerformed AtPathologist SignatureMISCELLANEOUS TESTCOMMENT. TBHComment: Test Ordered: [id number] Tricyclic Antidepressant Conf Tricyclic Antidep ?Negative ? ng/mL ?UI ?? Reference Range: Rkonqt=219 Confirmation performed by Mass Spectrometry Please Note: ? Comment ? UI ?? Reference Range: . Drug test results should be interpreted in the context of clinical information. Patient metabolic variables, specific drug chemistry, and specimen characteristics can affect test outcome. Technical consultation is available if a test result is inconsistent with an expected outcome. ??Email: ??[email or web address] ??Phone: ??[phone] Performed at: ??UI - [facility] [id number] [place], [place] ??[id number] Magnetic Resonance Technologist: Ijeoma Lino PhD, Phone: ??[phone] Performed at: ??CB - [facility] [address] ??[id number] Magnetic Resonance Technologist: Ilya Manjarrez PhD, Phone: ??[phone] Specimen (Source)Anatomical Location / LateralityCollection Method / Volume Collection TimeReceived Time05/29/2025 12:58 PM EDT05/29/2025 2:05 PM EDT Narrative [facility] - 06/03/2025 5:08 AM EDT [id number] Tricyclic Antidepressants Confirmation, Urine Authorizing ProviderResult TypeResult StatusCorey Chary DOCLINISYNCFinal Result Performing OrganizationAddressCity/State/[facility] CodePhone Number [facility]INIS[facility]NC [facility] * (ABNORMAL) POCT , urine manually resulted (05/15/2025 10:10 AM EDT) ComponentValueRef RangeTest MethodAnalysis TimePerformed AtPathologist SignaturePreg Test, UrPositiveNegativeSpecimen (Source)Anatomical Location / LateralityCollection Method / VolumeCollection TimeReceived TimeUrine 05/15/2025 10:10 AM EDT Narrative Authorizing ProviderResult TypeResult StatusCorey Chary DOPOINT OF CARE TEST ENTER/EDIT ORDERABLESFinal Result * US OB transvaginal (05/15/2025 10:06 AM EDT)Anatomical RegionLaterality ModalityBodyUltrasoundSpecimen (Source)Anatomical Location / Laterality Collection Method / VolumeCollection TimeReceived Time05/18/2025 2:44 PM EDT Impressions 05/19/2025 9:07 AM EDT Findings consistent with a live intrauterine gestation, current sonographic age of 7 weeks and 0 days resulting in an estimated date of delivery of January 01, 2026. TRANSCRIBED BY: ? ELECTRONICALLY SIGNED BY: Hunter Huffman MD Narrative 05/19/2025 9:07 AM EDT FINDINGS: A single intrauterine gestational sac is present. ??No subchorionic hemorrhage. ??A single pole is present. Normal heart rate at 141 beats per minute. ??Yolk sac also is seen. ?? Current sonographic age is 7 weeks and 0 days based on the crown-rump length measurement of 10 mm. ??Based on this age, current estimated date of delivery is ??January 01, 2026. No pelvic fluid or adnexal mass present. ??Closed cervix. Procedure Note Hunter Huffman MD - [...] BY: ELECTRONICALLY SIGNED BY: Hunter Huffman MD Authorizing ProviderResult TypeResult StatusCorey Chary DOIMG OB US PROCEDURES Final Result from Last 3 Months Insurance Care Teams Team MemberRelationshipSpecialtyStart DateEnd Date Helio Campos MD [address] [place] [address] PCP - [facility]04/05/23 Breana Loving NP [address] [place] [address] PCP - [facility]12/30/2510
--- OUTSIDE RECORDS SUMMARY | 2025-08-04 15:21 | XMS_ITS | CCD ---
Author Organization [facility] Care Team Providers Care Biomedical Engineering Technologist Name Role Phone MD Helio Campos Primary Care Provider MD Param Rao Admit Provider MD Param Rao Attending Provider MARKER, DR JONAS Admitting Unavailable MARKER, DR JONAS Attending Unavailable MARKER, DR JONAS Consulting Unavailable STEFANEREChris, DR HELIO Verma Primary Care Unavailable CHIQUI, DR HELIO Verma Primary Care Unavailable CHALO, FRANCK NAVAS Consulting Unavailable RUTH, DR PARK Perez Admitting Unavailable RUTH, DR PARK Perez Attending Unavailable Roseanne Wren Consulting Unavailable TAL IQBAL Admitting Unavailable MIRIAM VEGA Consulting Unavailable CHIQUI, DR HELIO Verma Primary Care Unavailable TAL IQBAL Attending Unavailable TAL IQBAL Consulting Unavailable CHIQUI, DR HELIO Verma Primary Care Unavailable TAL IQBAL Attending Unavailable TAL IQBAL Admitting Unavailable Helio Campos MD Primary Care Provider Dante Valadez Attending Unavailab Dante Corral Admitting Unavailab Helio Cornejo Primary Care Unavailable Inder GARCIA, Breana Gill Unavailable Helio Campos MD Primary Care Provider RENEE DIEZ Attending Unavailable RENEE DIEZ Referring Unavailable RENEE DIEZ Attending Unavailable BREANA POSADA Attending Unavailable BETSY RUBIO Attending Unavailable Medications Current Medications MedicationDrug Class(es)DatesSig (Normalized)Sig (Original)24 hr buPROPion hydrochloride 150 mg extended release oral tablet (6 sources)AminoketoneStart: 59-77-4147ptnw 150 mg by mouth once daily in the morningBupropion Hcl Active 150 MG PO Every morning September 15, 2022 12:00am End: 52-42-4564mxne 1 tablet by mouth every twenty-four hours in the morning buPROPion XL (Wellbutrin XL) 300 MG 24 hr tablet Take 300 mg by mouth in the morning. 03/23/2025 Discontinuedcariprazine 3 mg oral capsule (12 sources)Atypical AntipsychoticStart: 25-17-9162comt 1 capsule by mouth once dailyCariprazine (Vraylar) 3 mg Capsule Active 3 MG PO Daily September 15, 2022 12:00am End: 91-27-0825tqgv 1 capsule by mouth once dailyCariprazine HCl (Vraylar) 1.5 MG capsule Take 1.5 mg by mouth Daily 04/19/2025 Discontinued (Therapy completed) End: 95-44-8570babf 1 capsule by mouth in the morningCariprazine HCl (Vraylar) 6 MG capsule Take 6 mg by mouth in the morning. 03/23/2025 Discontinuedletrozole 2.5 mg oral tablet (3 sources)Aromatase InhibitorStart: 03-23-2025 End: 17-67-3932rmzp 1 tablet by mouth once dailyletrozole (Femara) 2.5 MG chemo tablet Indications: Female infertility , PCOS (polycystic ovarian syndrome) Take 1 tablet (2.5 mg total) by mouth Daily for 5 days. 5 tablet 03/23/2025 03/28/2025 Mxeucf14 hr metFORMIN hydrochloride 500 mg extended release oral tablet (9 sources)BiguanideStart: 03-23-2025 End: 57-15-1598tkki 1 tablet by mouth every twenty-four hours at mealtime metFORMIN XR (Glucophage-XR) 500 MG 24 hr tablet Indications: Female infertility , PCOS (polycysticovarian syndrome) Take 1 tablet (500 mg) by mouth in the evening. Take with meals Do not crush, chew, or split. 30 tablet 11 03/23/2025 05/15/2025 Discontinued (Therapy completed)24 hr nicotine 0.583 mg/hr transdermal system (1 source)Cholinergic Nicotinic AgonistStart: 76-72-2102Onkbolpk Active 1 EACH TRANSDERML Daily September 15, 2022 12:00amnystatin 100 unt/mg topical powder (3 sources)Polyene AntifungalStart: 07-13-2025 End: 89-41-1993xdvdgvoo (Mycostatin) 872424 UNIT/GM powder Indications: Tinea Apply topically in the morning and in the evening and before bedtime. 15 g 07/13/2025 07/13/2026 ActiveQUEtiapine 25 mg oral tablet (13 sources)Atypical AntipsychoticStart: 95-32-6300zlmd 2 tablets by mouth at bedtimeQUEtiapine (SEROquel) 25 MG tablet Take 50 mg by mouth at bedtime 04/14/2025 ActiveStart: 35-52-4394hnwb 1 tablet by mouth at bedtimeQUEtiapine (SEROquel) 25 MG tablet Take 25 mg by mouth at bedtime 04/14/2025 Active sertraline 25 mg oral tablet (17 sources)Serotonin Reuptake InhibitorStart: 86-30-3577eims 1 tablet by mouth once dailyZoloft 25 MG tablet Take 25 mg by mouth Daily 03/18/2025 Active0.5 ml testosterone enanthate 150 mg/ml auto-injector (5 sources)Androgen End: 32-68-2477ggpvzw 75 mg by subcutaneous injection every weektestosterone enanthate (Xyosted) 75 MG/0.5ML solution auto-injector Inject 75 mg under the skin once a week. 03/23/2025 Pgqnmedieshn18 hr venlafaxine 37.5 mg extended release oral capsule (5 sources)Serotonin and Norepinephrine Reuptake InhibitorStart: 07-01-2024 End: 86-29-3510jzbz 1 capsule by mouth once daily at mealtimevenlafaxine XR (Effexor XR) 37.5 MG 24 hr capsule TAKE 1 CAPSULE BY MOUTH EVERY DAY WITH FOOD FOR 30 DAYS 07/01/2024 03/23/2025 Discontinued Completed/Discontinued Medications MedicationDrug Class(es)DatesSig (Normalized)Sig (Original)azithromycin 250 mg oral tablet (4 sources)Macrolide AntimicrobialStart: 09-09-2024 End: 30-07-1485meuztbpyzhhi (Zithromax) 250 MG tablet Indications: Acute cough , Bronchitis Take 1 tablet (250 mg)by mouth Daily Take 2 tabs on day 1 and 1 tab on days 2-5 then stop 6 tablet 09/09/2024 03/13/2025 Discontinued (Therapy completed)benzonatate 100 mg oral capsule (4 sources)Non-narcotic AntitussiveStart: 09-09-2024 End: 84-93-6794gwgi 1 capsule by mouth three times daily as needed for cough benzonatate (Tessalon Perles) 100 MG capsule Indications: Acute cough , Bronchitis Take 1 capsule (100 mg) by mouth 3 (three) times a day as needed for cough Do not crush or chew. 21 capsule 09/09/2024 03/13/2025 Discontinued (Therapy completed)hydrOXYzine hydrochloride 25 mg oral tablet (4 sources)Antihistamine End: 86-22-9338arun 1 tablet by mouth three times daily as neededhydrOXYzine HCl (Atarax) 25 MG tablet Take 25 mg by mouth 3 (three) times a day as needed. 03/13/2025 Discontinued (Therapy completed)ibuprofen 600 mg oral tablet (4 sources)Nonsteroidal Anti-inflammatory Drug End: 85-77-0326rgxq 1 tablet by mouth every six hours as neededibuprofen 600 MG tablet Take 600 mg by mouth every 6 (six) hours if needed. 03/13/2025 Discontinued(Therapy completed)OXcarbazepine 300 mg oral tablet (4 sources)Anti-epileptic Agent End: 40-67-3626owzl 1 tablet by mouth in the morningOXcarbazepine (Trileptal) 300 MG tablet Take 300 mg by mouth in the morning and 300 mg in the evening. 03/13/2025 Discontinued (Therapy completed) Problems Active Problems Problem ClassificationProblemDateDocumented DateEpisodic/ChronicChronic obstructive pulmonary disease and bronchiectasis (2 sources)Bronchitis; Translations: [Bronchitis, not specified as acute or chronic]74-67-7734MsrmfrnyTgbpvf infertility (2 sources)Female infertility; Translations: [Female infertility, unspecified] 79-20-3341LqxdclfRelamopk; including migraine (3 sources)Headache; including migraine; Translations: [HEADACHE UNSPECIFIED] Onset: 04-05-5171Dzvkhyktirplq and screening for infectious disease (2 sources)Exposure to sexually transmissible disorder; Translations: [Contact with and (suspected) exposure to infections with a predominantly sexual mode of transmission]84-75-6288WtlpvfvuBufmomjaw disorders (4 sources)Amenorrhea; Translations: [Amenorrhea, unspecified]94-64-4199Xdzvsoy Mood disorders (12 sources)Bipolar disorder; Translations: [Bipolar disorder, unspecified] Onset: 510397-91-3846AfzzibzVhxv disorders (1 source)Mood disorders; Translations: [DEPRESSION UNSPECIFIED]Onset: 68-41-6234Iosnoex (2 sources)Dermatophytosis; Translations: [Dermatophytosis, unspecified] 95-17-8754BpigoyyaTizjn endocrine disorders (2 sources)Polycystic ovary syndrome; Translations: [Polycystic ovarian syndrome]18-34-6895GfugalqYknfj lower respiratory disease (2 sources)Cough; Translations: [Acute cough]85-67-3713AhhisfqnBngen nutritional; endocrine; and metabolic disorders (1 source)Morbid (severe) obesity due to excess calories; Translations: [MORBID SEVERE OBES D/T EXCESS FELICIANO]Onset: 95-25-5414MldkierSowmu and delivery including normal (9 sources)Urine test positive; Translations: [Encounter for test, result positive]98-56-3569XiblpxjwAfjqa screening for suspected conditions (not mental disorders or infectious disease) (6 sources)Possible ; Translations: [Encounter for test, result unknown]85-86-4937UffmbetqZxcvyowxfyw disorders (10 sources)Borderline personality disorder; Translations: [Borderline personality disorder]Onset: 380609-41-2737ImexymeMvdemnjt codes; unclassified (1 source)Gestation period, 7 weeks; Translations: [Less than 8 weeks gestation of ]29-13-6951HxdrjjacJetbmexe codes; unclassified (2 sources)Gestation period, 11 weeks; Translations: [11 weeks gestation of ]61-42-8936EoyyyepaKuoawiwf codes; unclassified (2 sources)Gestation period, 15 weeks; Translations: [15 weeks gestation of ]98-92-8351YvnhqxoySylmdhaew-related disorders (1 source)Nicotine dependence, cigarettes, uncomplicated; Translations: [NICOTINE DEPEND CIGARETTES UNCOMP]Onset: 72-24-0184XlqznehQwpjngl and intentional self-inflicted injury (4 sources)Suicidal ideations; Translations: [SUICIDAL IDEATIONS]Onset: 49-50-5154FgwwhowlQmxayhfndsip (3 sources)COUGH, UNSPECIFIED; Translations: [COUGH, UNSPECIFIED]Onset: 73-48-9390Kbjgq infection (1 source)COVID-19; Translations: [COVID-19]Onset: 10-05-2021 Past or Other Problems Problem ClassificationProblemDateDocumented DateEpisodic/ChronicNausea and vomiting (1 source)Nausea; Translations: [NAUSEA]Onset: 14-93-9288BbmujkslZpcvj aftercare (1 source)Other assisted (current) drug therapy; Translations: [OTH SHOEMAKER CUSTOM CURRENT DRUG THERAPY]Onset: 43-55-0164ImeifqsoEpxngqxz codes; unclassified (4 sources)Procedure and treatment not carried out due to patient leaving prior to being seen by health care provider; Translations: [PROC AND TX NOT CARRIED OUT PT LEAVE]Onset: 03-44-3554WanyovrlMidnunxde and history of mental health and substance abuse codes (1 source)Personal history of nicotine dependence; Translations: [PERSONAL HISTORY OF NICOTINE DEPEND]Onset: 57-04-4612NhkvadpvTlihzcqwamlq (1 source)COUGH, UNSPECIFIED; Translations: [COUGH, UNSPECIFIED]Onset: 10-03-2021 Results Test NameValueInterpretationReference RangeFacilityRECURRENT VAGINITIS (HTRX)on 14-19-5425LASLCZXDP LETAQGO9JDNF HealthcareATOPOBIUM VAGINAENot detectedNOMS HealthcareBVAB 2,3 (BACTERIAL VAGINOSIS ASSOCIATED BACTERIA 2, 3); MOBILUNCUS SPP26.603AbnormalNOMS HealthcareBVAB 2,3 (BACTERIAL VAGINOSIS ASSOCIATED BACTERIA 2, 3); MOBILUNCUS SPPDetectedAbnormalNOMS HealthcareCANDIDA ALBICANS, PARAPSILOSIS, LPBISPGUZM8ENDB HealthcareCANDIDA ALBICANS, PARAPSILOSIS, TROPICALISNot detectedNOMS HealthcareCANDIDA MCZXLZND3ODAX HealthcareCANDIDA GLABRATANot detectedNOMS HealthcareCANDIDA GMXIHM7NDZA HealthcareCANDIDA KRUSEI Not detectedNOMS HealthcareCHLAMYDIA CFGZHZRTBFF0ASAK HealthcareCHLAMYDIA TRACHOMATISNot detectedNOMS HealthcareGARDNERELLA ZSZGCZRAN6QORW Healthcare GARDNERELLA VAGINALISNot detectedNOMS HealthcareInterpretation and review of laboratory resultsAbnormalNOMS HealthcareMEGASPHAERA (TYPES 1, 2)0NOMS HealthcareMEGASPHAERA (TYPES 1, 2)Not detectedNOMS HealthcareMYCOPLASMA EZQDEPDCHC3AEST HealthcareMYCOPLASMA GENITALIUMNot detectedNOMS Healthcare MYCOPLASMA BWYGNTA6VNBR HealthcareMYCOPLASMA HOMINISNot detectedNOMS Healthcare NEISSERIA DXMYAANVLMS5YCRR HealthcareNEISSERIA GONORRHOEAENot detectedNOMS HealthcareTRICHOMONAS MJMOLQTOP9FNHT HealthcareTRICHOMONAS VAGINALISNot detected NOMS HealthcareUREAPLASMA HVAXJT0VNNE HealthcareUREAPLASMA PARVUMNot detected NOMS HealthcareUREAPLASMA LYAEGKXYGXX0VWOV HealthcareUREAPLASMA UREALYTICUMNot detectedNOMS HealthcareNOMS HealthcareUrinalysis macro (dipstick) panel (U)on 49-11-3701Wtjecfwcu, UANegativeNegative - 4(70) +++ mg/dLNOMS HealthcareBlood, UANegativeNegative - 50 Yogesh/mcLNOMS HealthcareClarity, UAClearNOMS Healthcare Color, UAYellowNOMS HealthcareGlucose, UANegativeNegative - 1999(110) ++++ mg/dL NOM HealthcareInterpretation and review of laboratory resultsNormalNODE HealthcareKetones, UANegativeNegative - 160(16) ++++ mg/dLNODE Healthcare Leukocytes, UANegativeNegative - 500+++ Jaci/mcLNODE HealthcareNitrite, UA NegativeNegative - PositiveNODE HealthcarepH, UA6.05 - 9NOMS HealthcareProtein, UANegativeNegative - 2000(20) ++++ mg/dLNOMS HealthcareSpec Grav, UA1.0201 - 1.03NOMS HealthcareUrobilinogen, UA1.00.2 - 12 mg/dLNOMS HealthcareNOMS HealthcareUrinalysis macro (dipstick) panel (U)on 40-13-4454Awbqwcorl, UA NegativeNegative - 4(70) +++ mg/dLNOMS HealthcareBlood, UANegativeNegative - 50 Yogesh/mcLNOMS HealthcareClarity, UAClearNOMS HealthcareColor, UAYellowNOMS HealthcareGlucose, UANegativeNegative - 1999(110) ++++ mg/dLNODE Healthcare Interpretation and review of laboratory resultsNormalNOMS HealthcareKetones, UA NegativeNegative - 160(16) ++++ mg/dLNODE HealthcareLeukocytes, UANegative Negative - 500+++ Jaci/mcLNODE HealthcareNitrite, UANegativeNegative - Positive NOMS HealthcarepH, UA65 - 9NOMS HealthcareProtein, UANegativeNegative - 2000(20) ++++ mg/dLNODE HealthcareSpec Grav, UA1.0251 - 1.03NODE HealthcareUrobilinogen, UA1.00.2 - 12 mg/dLNOOzarks Community HospitalNODE HealthcareBOX TESTon 38-15-7516CZL TEST SENT OUTunJellico Medical CenterMdpijzxahmMTI0ngpzuUDVI OetvzpyvwtKAQ14/29/25NOOzarks Community Hospital CLINISYNCFulton Medical Center- FultonHCG ( test) Ql (U)on 81-12-9271Uepejhvjlaqaid and review of laboratory resultsAbnormAmerican Academic Health SystemPreg Test, UrPositive NegativeCapital Region Medical Center HealthcareUS OB TRANSVAGINALon 21-59-6325MY OB TRANSVAGINALFINDINGS: A single intrauterine gestational sac is present. No subchorionic hemorrhage. A single pole is present. Normal heart rate at 141 beats per minute. Yolk sac also is seen. Current sonographic age is 7 weeks and 0 days based on the crown-rump length measurement of 10 mm. Based on this age,current estimated date of delivery is January 01, 2026. No pelvic fluid or adnexal mass present. Closed cervix. IMPRESSION: Findings consistent with a live intrauterine gestation, current sonographic age of 7 weeks and 0 days resulting in an estimated date of delivery of January 01, 2026. TRANSCRIBED BY: ELECTRONICALLY SIGNED BY: Jayson JonesNot AvailableComment on above:Order Comment: US OB TRANSVAGINAL No LMP recorded.Urinalysis macro (dipstick) panel (U)on 42-51-7738Ouaprdngk, UA NegativeNegative - 4(70) +++ mg/dLNODE HealthcareBlood, UANegativeNegative - 50 Yogesh/mcLNODE HealthcareClarity, UAClearNODE HealthcareColor, UAYellowNODE HealthcareGlucose, UANegativeNegative - 2000(110) ++++ mg/dLNODE Healthcare Interpretation and review of laboratory resultsNormalFulton Medical Center- FultonKetones, UA NegativeNegative - 160(16) ++++ mg/dLFulton Medical Center- FultonLeukocytes, UANegative Negative - 500+++ Jaci/mcLFulton Medical Center- FultonNitrite, UANegativeNegative - Positive NOMS HealthcarepH, UA65 - 9NODE HealthcareProtein, UANegativeNegative - 2000(20) ++++ mg/dLTHE [facility] HealthcareSpec Grav, UA1.0151 - 1.03NOOzarks Community HospitalUrobilinogen, UA1.00.2 - 12 mg/dLCone HealthTBH PREG QUANT HCGon 04-23-2025 HCG OOVPCRRYKYWO943tWY/mLNSHARE MEDICAL CENTER – ALVA HealthcareComment on above:5-50 0.2-1 WEEK 50-500 1-2 WEEKS 100-5,000 2-3 WEEKS 500-10,000 3-4 WEEKS 1,000-50,000 4-5 WEEKS 10,000-100,000 5-6 WEEKS 15,000-200,000 6-8 WEEKS 10,000-100,000 2-3 MON[facility]S [facility] PREG QUANT HCGon 74-62-9756PEH TMVBHFHYRTMK41gAP/mL [facility] HealthcareComment on above:5-50 0.2-1 WEEK 50-500 1-2 WEEKS 100-5,000 2-3 WEEKS 500-10,000 3-4 WEEKS 1,000-50,000 4-5 WEEKS 10,000-100,000 5-6 WEEKS 15,000-200,000 6-8 WEEKS 10,000-100,000 2-3 MONTHS [facility]INSaint [facility] HospitalHCG ( test) Ql (U)on 30-70-3009Cvipebjccxotkb and review of laboratory resultsNoTitusville Area HospitalPreg Test, UrNegative NegativeCone HealthALL PROGESTERONEon 98-33-4344TOPMLHWDROEW 9.5 ng/mL.[facility] HealthcareComment on above:Follicular phase 0.1 - 0.9 Luteal phase 1.8 - 23.9 Ovulation phase 0.1 - 12.0 First trimester 11.0 - 44.3 Second trimester 25.4 - 83.3 Third trimester 58.7 - 214.0 Postmenopausal 0.0 - 0.1 Performed at: CB - Lab[address] [id number] Well [employer] Floorperson: Ilya Manjarrez PhD, Phone: [phone] [facility] Eastern PennsylvaniaMLR HEMOGLOBIN A1Con 85-95-0996Fmwbaww [Mass/Vol]105 mg/dLFulton Medical Center- FultonHbA1c (Bld) [Mass fraction]5.3 %4.5 - 6.2 %[facility] Comment on above:ADA RECOMMENDED LIMIT 4.0 - 6.0 ADA THERAPEUTIC TARGET < 7.0 ACTION SUGGESTED > 7.0 [facility] Eastern PennsylvaniaUS PELVIC COMPLETE W/ TVon 97-11-6789JJ PELVIC COMPLETE W/ TVEXAM: US PELVIC COMPLETE W/ TV HISTORY: PCOS. COMPARISON: None available. TECHNIQUE: Two-dimensional transabdominal grayscale ultrasound imaging of the pelvis was performed.Color flow Doppler imaging of the ovaries was [...] volume is 5 mL. There is normal colorDoppler flow. No fluid is present within the cul-de-sac. IMPRESSION: 1. Unremarkable ultrasound of the pelvis. 2. Normal color Doppler flow within the bilateral ovaries. Interpreted by: Electronically signed by PAYAL PLUMMER II, MD, PHD at 25-Mar-2025 07:52:19 AM [facility] TeleradiologyNormalNot AvailableComment on above:Order Comment: US PELVIS-TRANSVAG IF INDICATED Patient's last menstrual period was 03/21/2025.Cholesterol [Mass/volume] in Serum or PlasmaOrdered By: Param Rao on 93-11-2853Atcqldbywke [Mass/Vol]141 mg/wW366-378HmrhkbbchRegional Medical CenterComment on above:Chol less than 200 mg/dl low riskChol 201-239 mg/dl borderline riskChol 240 mg/dl and greater high riskCholesterol in LDL Calc [Mass/Vol]Ordered By: Param Rao on 89-12-6771Fierycyghzx in LDL [Mass/Vol]94 mg/dL0-100Regional Medical CenterComment on above:LDL ATP III CLASSIFICATIONLDL less than 100 mg/dL OptimalLDL 100-129 mg/dL Near or above cgktebsBHU436-435 mg/dL Borderline highLDL 160-189 mg/dL HighLDL greater than 189 mg/dL Very highCholesterol in VLDL Calc [Mass/Vol]Ordered By: Param Rao on 96-99-1498Addoprmjhok in VLDL [Mass/Vol]9 mg/dLRegional Medical CenterNo Panel InformationOrdered By: Param Rao on 80-96-199178739202-Xqfiamb Vitamin D Total11.9 ng/iU43-858 Regional Medical CenterComment on above:VITAMIN D STATUS 25(OH)VITAMIN D RANGE (ng/mL) Deficient <20 Insufficient 20 to <53Rtxzeulldf05 to 100Reference: Zee MF,[place] NC, Prabhu DOWNS, et al. Evaluation,treatment, and prevention of vitamin D deficiency; an Endocrine Society clinical practice guideline. JCEM. 2010; 96(7):1911-30.Serum or plasma high density lipoprotein (HDL) cholesterol measurementOrdered By: Param Rao on 00-42-8846Okmebnlkfxc in HDL [Mass/Vol]38 mg/tK86-28HmhtbrfxkRegional Medical CenterComment on above:HDL CHOL ATP-III CLASSIFICATION Cardiovascular RiskHDL > or equal to 60 mg/dL LOWHDL < 40 mg/dL HIGHSerum or plasma total cholesterol/high density lipoprotein (HDL) cholesterol mass rat Ordered By: Param Rao on 63-12-7717Dibkyrciaom.total/Cholesterol in HDL [Mass ratio]3.7 {ratio}<5.0Regional Medical CenterTS DL <= 0.005 mIU/L QnOrdered By: Param Rao on 29-76-8694VKT Qn0.81 m[IU]/L0.45-5.33 Regional Medical CenterTriglyceride [Mass/volume] in Serum or Plasma Ordered By: Param Rao on 17-87-5636Zejqkdubrcee [Mass/Vol]45 mg/nP79-445 Regional Medical CenterComment on above:TRIG ATP III CLASSIFICATIONTRIG less than 150 mg/dL NormalTRIG 150-199 mg/dL Borderline highTRIG 200-500 mg/dL High TRIG greater than 500 mg/dL Very highStandard traceable to the Center for Disease Conrtrol and Prevention (CDC) test method. ACETAMINOPHENon 42-98-5700Imewygixwhaiv [Mass/Vol]ug/mLCritically low10.0-30.0 [facility] HospitalComment on above:Performed By: #### SALYC, ACET, CMP #### [facility] [address] [address] [address] Machelle Paulson AUTO DIFFon 11-08-5186JBSA #0.0 103/ulNormal0.0-0.1The [facility] CampusComment on above:Performed By: #### CBC #### [facility] [address] [address] [address] Machelle Rodrigessophils/100 WBC (Bld)0.4 %Normal0.2-2.0[facility] Comment on above:Performed By: #### CBC #### [facility] [address] [address] [address] Machelle Crawford #0.1 103/ulNormal0.0-0.7The [facility] CampusComment on above: Performed By: #### CBC #### [facility] [address] [address] [address] Machelle Pereaosinophils/100 WBC (Bld)0.8 %Critically low0.9-7.0The [facility] CampusComment on above:Performed By: #### CBC #### [facility] [address] [place] [address] Dr. Machelle Perearythrocyte distribution width (RBC) [Ratio]12.4 %Pxygoj03.0-15.0 [facility] HospitalComment on above:Performed By: #### CBC #### [facility] [address] [place] [address] Dr. Machelle GarciaHematocrit (Bld) [Volume fraction]40.4 %Wjumyr89.0-48.0The [facility] CampusComment on above:Performed By: #### CBC #### [facility] [address] [place] [address] Dr. Machelle GarciaHemoglobin (Bld) [Mass/Vol]14.3 g/uOIibloa22.0-16.0The [facility]doches HospitalComment on above:Performed By: #### CBC #### [facility] [address] [place] [address] Dr. Machelle GarciaIG #0.02 10e3/ulNormal0.00-0.03The [facility] CampusComment on above:Performed By: #### CBC #### [facility] [address] [place] [address] Dr. Machelle GarciaIG %0.3 %Normal0.0-0.5The [facility] CampusComment on above: Performed By: #### CBC #### [facility] [address] [place] [address] Dr. Machelle Pearson #1.0 103/ulCritically low1.2-3.8The [facility] Comment on above:Performed By: #### CBC #### [facility] [address] [place] [address] Dr. Machelle Andresmphocytes/100 WBC (Bld)14.1 %Critically low20.5-60.0The [facility] CampusComment on above:Performed By: #### CBC #### [facility] [address] [place] [address] Dr. Machelle GarciaMANUAL DIFF REQNONormalThe [facility] West CampusComment on above: Performed By: #### CBC #### [facility] [address] [place] [address] Dr. Machelle Brandt (RBC) [Entitic mass]29.7 mpUtkjnl33.7-34.0The [facility] CampusComment on above:Performed By: #### CBC #### [facility] [address] [place] [address] Dr. Machelle HenleyHC (RBC) [Mass/Vol]35.4 g/dLCritically high29.9-35.2The [facility] CampusComment on above:Performed By: #### CBC #### [facility] [address] [address] [address] Machelle HenleyV (RBC) [Entitic vol]83.8 zBKdqcyi64.0-99.0The [facility] CampusComment on above:Performed By: #### CBC #### [facility] [address] [address] [address] Machelle Kapoor #0.9 103/ulCritically high0.3-0.8The [facility] Comment on above:Performed By: #### CBC #### [facility] [address] [address] [address] Machelle Mcgovernocytes/100 WBC (Bld)12.6 %Critically high1.7-12.0The [facility] CampusComment on above:Performed By: #### CBC #### [facility] [address] [address] [address] Machelle AmayaUT #5.2 103/ulNormal1.4-6.5The [facility] CampusComment on above:Performed By: #### CBC #### [facility] [address] [address] [address] Machelle Amayautrophils/100 WBC (Bld)71.8 %Cwnegj22.0-75.0The [facility] CampusComment on above:Performed By: #### CBC #### [facility] [address] [address] [address] Machelle Taylorlet mean volume (Bld) [Entitic vol]9.9 fLNormal9.5-13.5The [facility] CampusComment on above:Performed By: #### CBC #### [facility] [address] [address] [address] Machelle GarciaPLT245 103/pxQysrtp968-856Ekl [facility] CampusComment on above: Performed By: #### CBC #### [facility] [address] [address] [address] Machelle GarciaRBC4.82 106/ulNormal4.20-5.40The [facility] CampusComment on above:Performed By: #### CBC #### [facility] [address] [address] [address] Machelle GarciaWBC7.2 103/ulNormal4.0-11.0T[place]edo HospitalComment on above: Performed By: #### CBC #### [facility] [address] [address] [address] Machelle GarciaDRUG SCREEN RAPID (URINE)on [id number]KMI [facility] HospitalCommemorial healthcare on above:Performed By: #### DRUGRPD ####[facility] [address] [address]Dr. Machelle GarciaBAR NegativeNormalNEGATIVEToledo HospitalComment on above:Performed By: #### DRUGRPD ####[facility] [address] [address]Dr. Machelle GarciaBUPNegativeNormalNEGATIVEToledo HospitalComment on above:Performed By: #### DRUGRPD ####[facility] [address] [address]Dr. Machelle GarciaBZONegativeNormalNEGATIVEToledo HospitalComment on above:Performed By: #### DRUGRPD ####[facility] Legsdrpqqe[address] [place], [place] [address]Dr. Machelle GarciaCOCNegative NormalNEGATIVEToledo HospitalComment on above:Performed By: #### DRUGRPD ####[facility] Dilfsljpzr[address] [place], [place] [address]Dr. Machelle GarciaCUT-OFFSSEE St. Anthony's HospitalComment on above:Result Comment: AMP (Amphetamine): 500ng/mL, BAR (Barbituates): 200 ng/mL, BZO (Benzodiazepines): 150 ng/mL, BUP (Buprenorphine): 10 ng/mL, JOHN (Cocaine): 150 ng/mL, mAMP (Methamphetamine): 500 ng/mL, MTD (Methadone): 200 ng/mL, OPI (Opiates): 100 ng/mL, OXY (Oxycodone): 100 ng/mL, PCP (Phencyclidine): 25 ng/mL, PPX (Propoxyphene): 300 ng/mL, THC (Cannabinoids): 50 ng/mL, TCA (Trycyclic Antidepressants): 300 ng/mLPerformed By: #### DRUGRPD ####[facility] [address]jsbuwzch[address] [place], [place] [address]Dr. Machelle ChangDRUG CUT HEADERDRUG CLASS TEST SYSTEM CUT-OFF CONCENTRATIONS ARE FOLLOWS:NormalThe Nacogdoches HospitalComment on above:Performed By: #### DRUGRPD ####[facility] Dxbyaytpsl[address] [place], [place] [address]Dr. Yilan ChangmAMP NegativeNormalNEGATIVEKettering Health – Soin Medical Center HospitalComment on above:Performed By: #### DRUGRPD ####[facility] Blxpnxbfww[address] [place], [place] [address]Dr. Yilan ChangMTDNegativeNormalNEGATIVEKettering Health – So[facility] Medical Center HospitalComment on above:Performed By: #### DRUGRPD ####[facility] Jhorvelkwm[address] [place], [place] [address]Dr. Yilan ChangOPINegativeNormalNEGATIVEKettering Health – [facility] Center HospitalComment on above:Performed By: #### DRUGRPD ####[facility] [address]quhvjl[address] [place], [place] [address]Dr. Yilan ChangOXYNegative NormalNEGATIVEKettering Health – So[facility] Medical Center HospitalComment on above:Performed By: #### DRUGRPD ####[facility] [address]axqpvtvxv[address] [place], [place] [address]Dr. Yilan ChangPCPNegativeNormalNEGATIVEKettering Health – So[facility] Medical Center HospitalComment on above: Performed By: #### DRUGRPD ####[facility] Dntektzh[address] [place], [place] [address]Dr. Yilan ChangPPXNegativeNormalNEGATIVEKettering Health – So[facility] Medical Center HospitalComment on above:Performed By: #### DRUGRPD ####[facility] [address] [address]Dr. Machelle GarciaTCANegative NormalNEGATIVEToledo HospitalComment on above:Performed By: #### DRUGRPD ####[facility] [address] [address]DrMarilee GarciaTHCPositiveAbnormalNEGATIVEToledo HospitalComment on above: Performed By: #### DRUGRPD ####[facility] [address] [address]Dr. Machelle Reese URINE PROFILEon 50-66-1040Xirrevgyd Ql (U)NegativeNormalNEGATIVEToledo HospitalComment on above:Performed By: #### PREGU, ERUR #### [facility] [address] [place] [address] Dr. Machelle GarciaClarity (U)CLEARNormalCLEARToledo HospitalComment on above: Performed By: #### PREGU, ERUR #### [facility] [address] [place] [address] Dr. Machelle Gandhi (U)LT. YELLOWNormalYELLOWToledo HospitalComment on above:Performed By: #### PREGU, ERUR #### [facility] [address] [address] [address] Machelle Blair micrscopic examination will be performed if indicated. NormalToledo HospitalComment on above:Performed By: #### PREGU, ERUR #### [facility] [address] [address] [address] Machelle GarciaGlucose Ql (U)NegativeNormalNEGATIVEToledo HospitalComment on above:Performed By: #### PREGU, ERUR #### [facility] [address] [address] [address] Machelle GarciaHemoglobin Ql (U)NegativeNormalNEGATIVESelect Medical Specialty [facility] on above:Performed By: #### PREGU, ERUR #### [facility] [address] [address] [address] Machelle GarciaKetones Ql (U)TRACEAbnormalNEGATIVEThe [facility] CampusComment on above:Performed By: #### PREGU, ERUR #### [facility] [address] [place] [address] Dr. Machelle GarciaLEUKOCYTESNegativeNormalNEGATIVEThe [facility] CampusComment on above:Performed By: #### PREGU, ERUR #### [facility] [address] [address] [address] Machelle Santiagotrite Ql (U)NegativeNormalNEGATIVEThe Nacogdoches HospitalComment on above:Performed By: #### PREGU, ERUR #### [facility] [address] [address] [address] Machelle GarciapH (U)5.5 [pH]Normal5-9The [facility] CampusComment on above: Performed By: #### PREGU, ERUR #### [facility] [address] [place] [address] Dr. Machelle GarciaSPEC GRAVITY1.387Gpimwk5.005-<=1.025The [facility] CampusComment on above:Performed By: #### PREGU, ERUR #### [facility] [address] [place] [address] Dr. Machelle Burgos PROTEINNegativermalNEGATIVE/ TRACEThe [facility] on above:Performed By: #### PREGU, ERUR #### [facility] [address] [place] [address] Dr. Machelle Pruett MICRO INDNOT INDICATEDNormalThe [facility] CampusComment on above:Performed By: #### PREGU, ERUR #### [facility] [address] [address] [address] Machelle GarciaUrobilinogen Qn (U)0.2 {Jeanine'U}/dLNormal0.2 - 1.0The [facility] CampusComment on above:Performed By: #### PREGU, ERUR #### [facility] [address] [place] [address] Dr. Carty ChangETHANOL (BLD ALC)on 37-47-3945QWT NOTENOTE: 80 mg/dl is the legal limit for a blood alcohol levelNormProMedica Bay Park HospitalComment on above: Performed By: #### ETH ####[facility] [address] [address] ChangEthanol [Mass/Vol]mg/dLNoMcCullough-Hyde Memorial HospitalComment on above:Performed By: #### ETH ####[facility] [address] [address]Dr.Yilan GarciaPREGNANCY URon 44-12-1716PGSZXRBWN, QUALNegativeNormalNEGATIVEThe [facility] CampusComment on above:Performed By: #### PREGU, ERUR #### [facility] [address] [place] [address] Dr. Machelle Thompson 14(COMP METB)on 90-46-0026Pjqmggx [Mass/Vol]3.9 g/dLNormal 3.4-5.0The [facility] CampusComment on above:Performed By: #### SALYC, ACET, CMP #### [facility] [address] [address] [address] Machelle GarciaAlbumin/Globulin [Mass ratio]1.1 {ratio}NormalThe [facility] CampusComment on above:Performed By: #### SALYC, ACET, CMP #### [facility] [address] [address] [address] Machelle Bergeron [Catalytic activity/Vol]89 U/LNolfhn23-539Zys [facility] CampusComment on above:Performed By: #### SALYC, ACET, CMP #### [facility] [address] [address] [address] Machelle Carvajal [Catalytic activity/Vol]19 U/BHbhymm28-09Njy [facility] CampusComment on above:Performed By: #### SALYC, ACET, CMP #### [facility] [address] [place] [address] Dr. Machelle Champagne gap [Moles/Vol]12.1 mmol/LNormalThe [facility] Comment on above:Performed By: #### SALYC, ACET, CMP #### [facility] [address] [address] [address] Machelle GarciaAST [Catalytic activity/Vol]16 U/XCnkzah61-46Vxq [facility] CampusComment on above:Performed By: #### SALYC, ACET, CMP #### [facility] [address] [address] [address] Machelle GarciaBilirubin [Mass/Vol]0.4 mg/dLNormal0.2-1.0The [facility] Comment on above:Performed By: #### SALYC, ACET, CMP #### [facility] [address] [address] [address] Machelle GarciaCalcium [Mass/Vol]9.0 mg/dLNormal8.5-10.1The [facility] Comment on above:Performed By: #### SALYC, ACET, CMP #### [facility] [address] [address] [address] Machelle GarciaChloride [Moles/Vol]104 mmol/HWvxgif10-388Auo [facility] Comment on above:Performed By: #### SALYC, ACET, CMP #### [facility] [address] [address] [address] Machelle GarciaCO2 [Moles/Vol]25.5 mmol/VFlowft14.0-32.0The [facility] Comment on above:Performed By: #### SALYC, ACET, CMP #### [facility] [address] [address] [address] Machelle GarciaCreatinine [Mass/Vol]0.86 mg/dLNormal0.55-1.02The [facility] CampusComment on above:Performed By: #### SALYC, ACET, CMP #### [facility] [address] [place] [address] Dr. Machelle PereaGFR-AF DANISH>60Normal>=60The [facility] CampusComment on above:Performed By: #### SALYC, ACET, CMP #### [facility] [address] [address] [address] Machelle PereaGFR-NON AF DANISH>60Normal>=60The [facility] CampusComment on above:Performed By: #### SALYC, ACET, CMP #### [facility] [address] [place] [address] Dr. Machelle GarciaGlobulin (S) [Mass/Vol]3.4 g/dLNormProMedica Bay Park HospitalComment on above:Performed By: #### SALYC, ACET, CMP #### [facility] [address] [place] [address] Dr. Machelle GarciaGlucose [Mass/Vol]102 mg/vMLwgiko76-902Qcb [facility] Comment on above:Performed By: #### SALYC, ACET, CMP #### [facility] [address] [place] [address] Dr. Machelle GarciaPotassium [Moles/Vol]3.6 mmol/LNormal3.5-5.1The [facility] Comment on above:Performed By: #### SALYC, ACET, CMP #### [facility] [address] [place] [address] Dr. Machelle GarciaProtein [Mass/Vol]7.3 g/dLNormal6.4-8.2[facility] Comment on above:Performed By: #### SALYC, ACET, CMP #### [facility] [address] [place] [address] Dr. Machelle GarciaSodium [Moles/Vol]138 mmol/HKboujc983-375TozToledo Hospital Comment on above:Performed By: #### SALYC, ACET, CMP #### [facility] [address] [place] [address] Dr. Machelle GarciaUrea nitrogen [Mass/Vol]10.0 mg/dLNormal7.0-18.0The [facility] CampusComment on above:Performed By: #### SALYC, ACET, CMP #### [facility] [address] [place] [address] Dr. Machelle Call nitrogen/Creatinine [Mass ratio]11.6 mg/mgNormProMedica Bay Park HospitalComment on above:Performed By: #### SALYC, ACET, CMP #### [facility] [address] [address] [address] Machelle GarciaSALICYLATEon 43-20-4292HIPPFOAHZZ<2.8Normal<=19.9T[facility] HospitalComment on above:Performed By: #### FAITH BOONE, CMP #### [facility] [address] [place] [address] Dr. Machelle GarciaXR CHEST 1 Von [id number] CHEST 1 VEXAMINATION: XR CHEST 1 V, , 10/03/2021 7:50 PM EST INDICATION: COUGH HISTORY: Ordering Provider Reason for Exam: Technologist Note: Additional: COMPARISON: None. TECHNIQUE: Chest x-ray: One view. FINDINGS: No pneumothorax, pleural effusion or focal airspace consolidation. Heart is normal in size. Bony thorax is unremarkable. IMPRESSION: No acute cardiopulmonary process. Electronically authenticated by: ROSEANNE WREN Date: 2021-10-03 20:52NormalThe [facility] AUTO DIFFon [id number] #0.0 103/ulNormal0.0-0.1[facility] HospitalComment on above:Performed By: #### CBC #### [facility] [address] [address] [address] Machelle GarciaBasophils/100 WBC (Bld)0.4 %Normal0.2-2.0[facility] Comment on above:Performed By: #### CBC #### [facility] [address] [address] [address] Machelle Crawford #0.1 103/ulNormal0.0-0.7The [facility] CampusComment on above: Performed By: #### CBC #### [facility] [address] [place] [address] Dr. Machelle Pereaosinophils/100 WBC (Bld)1.3 %Normal0.9-7.0The [facility] Comment on above:Performed By: #### CBC #### [facility] [address] [place] [address] Dr. Machelle Perearythrocyte distribution width (RBC) [Ratio]12.8 %Ehpdhe73.0-15.0 The [facility] CampusComment on above:Performed By: #### CBC #### [facility] [address] [place] [address] Dr. Machelle GarciaHematocrit (Bld) [Volume fraction]40.7 %Jzhxsq47.0-48.0The [facility]doches HospitalComment on above:Performed By: #### CBC #### [facility] [address] [place] [address] Dr. Machelle GarciaHemoglobin (Bld) [Mass/Vol]13.7 g/jMVuffoo92.0-16.0The [facility] CampusComment on above:Performed By: #### CBC #### [facility] [address] [place] [address] Dr. Machelle GarciaIG #0.03 10e3/ulNormal0.00-0.03The [facility] CampusComment on above:Performed By: #### CBC #### [facility] [address] [place] [address] Dr. Machelle Hooks %0.4 %Normal0.0-0.5The [facility] CampusComment on above: Performed By: #### CBC #### [facility] [address] [place] [address] Dr. Machelle Pearson #0.6 103/ulCritically low1.2-3.8The [facility] Comment on above:Performed By: #### CBC #### [facility] [address] [place] [address] Dr. Machelle Andresmphocytes/100 WBC (Bld)8.8 %Critically low20.5-60.0The [facility] CampusComment on above:Performed By: #### CBC #### [facility] [address] [place] [address] Dr. Machelle NavarroUAL DIFF REQNONormalThe [facility] CampusComment on above: Performed By: #### CBC #### [facility] [address] [place] [address] Dr. Machelle Brandt (RBC) [Entitic mass]29.0 maXynqrq42.7-34.0The [facility] CampusComment on above:Performed By: #### CBC #### [facility] [address] [place] [address] Dr. Machelle Henley (RBC) [Mass/Vol]33.7 g/bCNsxycy44.9-35.2The [facility] CampusComment on above:Performed By: #### CBC #### [facility] [address] [place] [address] Dr. Machelle Henley (RBC) [Entitic vol]86.2 rTNjiztb58.0-99.0The [facility] CampusComment on above:Performed By: #### CBC #### [facility] [address] [place] [address] Dr. Machelle Kapoor #1.0 103/ulCritically high0.3-0.8The [facility] Comment on above:Performed By: #### CBC #### [facility] [address] [place] [address] Dr. Machelle Mcgovernocytes/100 WBC (Bld)14.4 %Critically high1.7-12.0The [facility] CampusComment on above:Performed By: #### CBC #### [facility] [address] [place] [address] Dr. Machelle Joy #5.1 103/ulNormal1.4-6.5The [facility] CampusComment on above:Performed By: #### CBC #### [facility] [address] [place] [address] Dr. Machelle Loveophils/100 WBC (Bld)74.7 %Vfopyo25.0-75.0The [facility] CampusComment on above:Performed By: #### CBC #### [facility] [address] [place] [address] Dr. Machelle Taylorlet mean volume (Bld) [Entitic vol]9.7 fLNormal9.5-13.5The [facility] CampusComment on above:Performed By: #### CBC #### [facility] [address] [place] [address] Dr. Machelle GarciaPLT211 103/lrSfomlp210-779Znt [facility] Health Centerment on above: Performed By: #### CBC #### [facility] [address] [place] [address] Dr. Machelle GarciaRBC4.72 106/ulNormal4.20-5.40The [facility] Centerment on above:Performed By: #### CBC #### [facility] [address] [place] [address] Dr. Machelle GarciaWBC6.8 103/ulNormal4.0-11.0The [facility] CampusComment on above: Performed By: #### CBC #### [facility] [address] [place] [address] Dr. Machelle Adenvimary-19 PCR (CVDTBH)on 69-86-7671WYTP-CoV-2 (COVID-19) RNA BERNARDINO+probe Ql (Unsp spec)DetectedCritically abnormalNOT DETECTEDThe [facility] on above:Result Comment: This test is not yet approved or cleared by the [place] FDA. When there are no FDA-approved or cleared tests available, and other criteria are met, FDA can make tests available under an emergency access mechanism called an Emergency Use Authorization (EUA). The EUA for this test is supported by the [place] of Health and Human Service's declaration that circumstances exist to justify the emergency use of in vitro diagnostics for the detection and/or diagnosis of the virusthat causes COVID-19. This EUA will remain in effect for the duration of the COVID-19 declaration ju stifying emergency of IVDs, unless it is terminated or revoked by the FDA (after which the test mayno longer be used).Performed By: #### CVDTBH #### [facility] [address] [place] [address] Dr. Machelle Solitario-DIMERon 97-88-8859Z-DIMER0.37 mg/L FEUNormal0.19-0.50The [facility] on above:Performed By: #### DDIM #### [facility] [address] [place] [address] Dr. Machelle GarciaD-DIMER COMMENTSSEE [facility] on above:Result Comment: Increases in D-Dimer concentration observed with thromboembolic events [...] stress, and generalized hospitalization. Performed By: #### DDIM #### [facility] [address] [address] [address] Machelle GarciaPROF 14(COMP METB)on 14-01-3966Xgpkunz [Mass/Vol]3.5 g/dLNormal 3.5-5.0The [facility] CampusComment on above:Performed By: #### CMP ####[facility] [address] [address]DrPoornima Garcia Albumin/Globulin [Mass ratio]0.9 {ratio}NormalThe [facility] CampusComment on above:Performed By: #### CMP ####[facility] [address] [address]Dr.Machelle GarciaALP [Catalytic activity/Vol]81 U/LNormal 38-126The [facility] on above:Performed By: #### CMP ####[facility] [address] [address]Dr.Machelle GarciaALT [Catalytic activity/Vol]44 U/LNormal9-52The [facility] CampusComment on above: Performed By: #### CMP ####[facility] [address] [address]DrPoornima GarciaAnion gap [Moles/Vol]12.2 mmol/LNormal The [facility] CampusCommemorial healthcare on above:Performed By: #### CMP ####[facility] [address] [address]Dr.Macehlle GarciaAST [Catalytic activity/Vol]17 U/GNkalpr24-31Kfo [facility]doches HospitalComment on above: Performed By: #### CMP ####[facility] [address] [place], [place] [address]Dr.Yilan ChangBilirubin [Mass/Vol]0.3 mg/dLNormal 0.2-1.3The [facility] CampusComment on above:Performed By: #### CMP ####[facility] [address] [place], [place] [address]Dr.Yilan Garcia Calcium [Mass/Vol]8.7 mg/dLNormal8.4-10.2The [facility] CampusComment on above: Performed By: #### CMP ####[facility] [address] [place], [place] [address]Dr.Yilan ChangChloride [Moles/Vol]103 mmol/LNormal 98-107The [facility] CampusComment on above:Performed By: #### CMP ####[facility] [address] [place], [place] [address]Dr.Yilan ChangCO2 [Moles/Vol]25.3 mmol/QKxngxh14.0-30.0The [facility] CampusComment on above: Performed By: #### CMP ####[facility] [address] [place], [place] [address]Dr.Yilan ChangCreatinine [Mass/Vol]0.87 mg/dLNormal 0.52-1.04The [facility] CampusComment on above:Performed By: #### CMP ####[facility] [address]fr[address] [place], [place] [address]Dr. Yilan ChangEGFR-AF DANISH>60Normal>=60The [facility] CampusComment on above: Performed By: #### CMP ####[facility] I[address] [place], [place] [address]Dr.Yilan ChangEGFR-NON AF DANISH>60Normal>=60The [facility] CampusComment on above:Performed By: #### CMP ####[facility] D[address]az[address]hs[address] [place], [place] [address]Dr.Yilan ChangGlobulin (S) [Mass/Vol]3.8 g/dLNormalThe [facility] CampusComment on above:Performed By: #### CMP ####[facility] [address] [address]Dr.Yilan ChangGlucose [Mass/Vol]99 mg/oFBmkyzs69-264Jwk [facility] Comment on above:Performed By: #### CMP ####[facility] [address] [address]Dr.Yilan ChangPotassium [Moles/Vol]3.5 mmol/LNormal3.4-5.0The [facility] CampusComment on above:Performed By: #### CMP ####[facility] [address] [place], [place] [address]Dr. Yilan ChangProtein [Mass/Vol]7.3 g/dLNormal6.1-8.2The [facility] CampusComment on above:Performed By: #### CMP ####[facility] [address]fr[address] [place], [place] [address]Dr.Yilan ChangSodium [Moles/Vol]137 mmol/LNormal 137-145The [facility] CampusComment on above:Performed By: #### CMP ####[facility] [address] [place], [place] [address]Dr.Yilan ChangUrea nitrogen [Mass/Vol]11.0 mg/dLNormal6.4-19.3The [facility] CampusComment on above:Performed By: #### CMP ####[facility] Trnxiafwhl54[address]89 [address] [place], [place] [address]Dr.Yilan ChangUrea nitrogen/Creatinine [Mass ratio] 12.6 mg/mgNoMcCullough-Hyde Memorial HospitalComment on above:Performed By: #### CMP ####[facility] Bimm[address] [place], [place] [address]Dr. Yilan ChangCytology Cervical or vaginal smear or scraping studyOrdered By: Beata Greenberg on 36-84-9709YXYTFulton Medical Center- [place] Vital Signs Date TimeVital SignValuePerforming OwprktcreNuqpveuu94-97-0064 15:04-0400Body mass index (BMI) [Ratio]53.93 kg/m2Betsy JUÁREZ Work Phone: [facility] FultonLojhsmgdyb77-33-2933 15:04-0400Body ztdywy732.11 kgBetsy Bermudezyadira JUÁREZ Work Phone: [facility] FultonLltcoduvyy25-61-8407 15:04-0400Diastolic blood uyjghwky59 mm[Hg]Betsy Bermudezyadira JUÁREZ Work Phone: [facility] FultonPjuhoqjqhd23-03-9208 15:04-0400Systolic blood cgadbpyp710 mm[Hg]Betsy Bermudezey PA Work Phone: [facility] FultonLdwfhxaeer76-29-1116 10:55-0400Body mass index (BMI) [Ratio]53 kg/k2Ovggv Chary DO Work Phone: [facility] FultonUjnsdsmikl25-54-1548 10:55-0400Body .02 kgCorey Chary DO Work Phone: [facility] FultonQokkvizgqt08-20-8191 10:55-0400Diastolic blood fjrffacx45 mm[Hg]Renee Chary DO Work Phone: [facility] FultonZhfdedqbox85-70-8869 10:55-0400Systolic blood oppuzitp504 mm[Hg]Renee Chary DO Work Phone: [facility] FultonPbkiaqpxmf48-45-0839 10:37-0400Body mass index (BMI) [Ratio]53.52 kg/l9PxmrvNorthern [facility]08-15-2025 10:37-0400Body weight 120.2 kgNorthern [facility] Hospital08-15-2025 10:37-0400Diastolic blood oxpeydxi23 mm[Hg][facility]08-15-2025 10:37-0400Systolic blood tefbzwkt226 mm[Hg][facility]07-20-2025 09:36-0400Body mass index (BMI) [Ratio] 51.71 kg/m7BantucbMonty Lemons DO Work Phone: [facility] FultonUenscquxln08-06-9794 09:36-0400Body temperature 98.71 [degF]Monty Lemons DO Work Phone: [facility] FultonQtshqdzxvg55-19-2487 09:36-0400Body usbsda191.12 kgMonty Lemons DO Work Phone: [facility] HospitalZnrfqlkvks66-08-7120 09:36-0400Diastolic blood fbrejwrl55 mm[Hg]Monty Lmeons DO Work Phone: [facility]OO[facility] HospitalTnvuccczyk89-38-0683 09:36-0400Heart gsrq587 /min Monty Lemons DO Work Phone: [facility] FultonOxqcxpmqus74-51-7068 09:36-8328LtQ9% (BldA) [Mass fraction]99 %Monty Lemons DO Work Phone: [facility] FultonQkkapgnpxz81-31-7946 09:36-0400Systolic blood qftcmpie903 mm[Hg]Monty Lemons DO Work Phone: [facility] FultonNrvpxdaqlv40-42-0433 09:02-0400Body .9 cmCorevish Doniso DO Work Phone: [facility] FultonSgjeknkshx97-70-4469 09:02-0400Body mass index (BMI) [Ratio]51.71 kg/q7Wnccg Chary DO Work Phone: [facility] FultonQdlqdeujsk88-36-0018 09:02-0400Body .12 kgSammiey Chary DO Work Phone: [facility]OO[facility] HospitalEnftzbnfks61-33-7548 09:02-0400Diastolic blood rccqonxe89 mm[Hg]Renee Chary DO Work Phone: [facility] FultonGwrethmjit65-24-5779 09:02-0400Systolic blood qwixjnwm902 mm[Hg]Renee Chary DO Work Phone: [facility] FultonEhifwtzfzv84-83-1839 12:49-0500Body mass index (BMI) [Ratio]63.11 kg/h9QomvaioBreana Posada [employer] Work Phone: [facility]OO[facility] HospitalOerclqldsr99-47-9550 12:49-0500Body temperature 98.1 [degF]Breana Posada [employer] Work Phone: [facility] FultonPvxhtvbfea27-61-2378 12:49-0500Body yenjqj446.9 kgBreana Posada [employer] Work Phone: [facility] FultonQptoyitdye59-19-5921 12:49-0500Diastolic blood hrkxbhiy87 mm[Hg]Breana Posada [employer] Work Phone: [facility] FultonBqpfxgvvgh21-10-4443 12:49-0500Heart zyqj351 /min Breana Posada [employer] Work Phone: [facility] FultonGyaiyosfpa47-65-5094 12:49-9609BqL7% (BldA) [Mass fraction]98 %Breana Posada [employer] Work Phone: [facility] FultonJqbqewmtox92-06-2194 12:49-0500Systolic blood jqoemljo039 mm[Hg]Breana Posada [employer] Work Phone: [facility] FultonYoxbegmgqx97-62-0127 07:26-0500Body temperature 98.4 [degF]MD Helio Campos Work Phone: [phone])[address]12-16-2022 07:26-0500 Diastolic blood uyxtotal36 mm[Hg]MD Helio Campos Work Phone: 1([phone])[address]12-16-2022 07:26-0500 Heart rate92 /minMD Helio Campos Work Phone: 1(686)[address]12-16-2022 07:26-0500 Respiratory rate16 /minMD Helio Campos Work Phone: 1(170)244-[address] [place], [place] [address]12-16-2022 07:26-0500 SaO2% (BldA) [Mass fraction]97 %MD Helio Campos Work Phone: 1(210)224-[address] [place], [place] [address]12-16-2022 07:26-0500 Systolic blood mm[Hg]MD eHlio Campos Work Phone: 1([phone])[address]12-14-2022 00:57-0500 Body rzgkiq046.86 cmMD Helio Campos Work Phone: 1([phone] [place], [place] [address]12-14-2022 00:57-0500 Body itkugl01.71 kgMD Helio Campos Work Phone: [facility] Encounters Encounter DateEncounter TypeCare ProviderFacilityStart: 07-13-2025 End: 25-22-2840Grslik outpatient visit 15 minutesBetsy JUÁREZ Work Phone: NO [facility]a OBGYNComment on above:Tinea (Primary Dx); Second trimester ([facility] 15 weeks gestation of ([facility]); Well woman exam with routine gynecological exam; Exposure to STD; Need for maternal serum alpha-protein (MSAFP) screening ([facility]); Screening, , for anatomic survey ([facility])Start: 07-13-2025 End: 41-01-0368Requnwk encounter procedureBetsy JUÁREZ Work Phone: [facility] HealthcareStart: 07-13-2025 End: 13-46-4599nmzilfvnluEUG RAMEYNot AvailableStart: 07-13-2025 End: 27-19-2655Xzsosi flowsheetBetsy JUÁREZ Work Phone: NO [facility]a OBGYNStart: 07-13-2025 End: 83-72-7723Iinrvd Sarah JUÁREZ Work Phone: NO [place] OBGYNStart: 07-13-2025 End: 39-86-7671Uoidqzie Result EncounterBetsy JUÁREZ Work Phone: [facility] External Department UnsolicitedStart: 06-15-2025 End: 09-17-7507Qzgopm flowsheetCorey Chary DO Work Phone: NO [facility]a OBGYNStart: 06-15-2025 End: 70-40-0927Qshojw flowsheetCorey Chary DO Work Phone: [facility]a OBGYNStart: 06-15-2025 End: 93-18-5130Jhueow outpatient visit 15 minutesCorey Chary DO Work Phone: [facility]a OBGYNComment on above:Second trimester ([facility]); First trimester ([facility]); 11 weeks gestation of ([facility])Start: 06-15-2025 End: 10-50-2610ehwkxcnijzJOIWG FAZIONot AvailableStart: 05-29-2025 End: 56-72-6820Nnufxxiib Result EncounterColumba Temple NP Work Phone: noms External Department UnsolicitedStart: 05-29-2025 End: 89-78-9903Fsfojkwqz Result EncounterColumba Temple NP Work Phone: noms External Department UnsolicitedStart: 05-15-2025 End: 86-15-2342neraszdxvaXsbpm Nurse Noms Theodore [place] OBGYNComment on above:GA: 6z4kQbyrj: 04-23-2025 End: 89-72-0487Tqhlvhvhz Result EncounterCorey Chary DO Work Phone: noms External Department UnsolicitedStart: 04-23-2025 End: 27-16-4704Xbeqcywjs Result EncounterCorey Chary DO Work Phone: noms External Department UnsolicitedStart: 04-21-2025 End: 13-22-6380Wmcfvsbrj Result EncounterCorey Chary DO Work Phone: noms External Department UnsolicitedStart: 04-21-2025 End: 09-28-5377Wdccuthqi Result EncounterCorey Chary DO Work Phone: noms External Department UnsolicitedStart: 04-19-2025 End: 82-21-6515cmmkpkejheOYIRS FAZIONot AvailableStart: 04-19-2025 End: 33-89-1366Ccubbj outpatient visit 15 minutesMonty Lemons DO Work Phone: [facility]oms [facility] CareComment on above:Possible (Primary Dx); AmenorrheaStart: 25-90-7505agyrgejipwHhqcbhpaffmFarhat Hilliardcility:St. [facility] Hospitaltart: 04-10-2025 End: 67-96-0460Sudsvzlwc Result EncounterCorey Chary DO Work Phone: noms External Department UnsolicitedStart: 04-10-2025 End: 93-08-6185Ehynpilws Result EncounterCorey Chary DO Work Phone: noms External Department UnsolicitedStart: 03-24-2025 End: 31-48-8531Znecuvyae Result EncounterCorey Chary DO Work Phone: NOFN External Department UnsolicitedStart: 03-24-2025 End: 74-47-2069Xwovdhdgz Result EncounterCorey Chary DO Work Phone: noms External Department UnsolicitedStart: 03-24-2025 End: 44-42-6301baiwatdoarWBDYO FAZIONot AvailableStart: 03-23-2025 End: 76-04-9616Cvdwsf flowsheetCorey Chary DO Work Phone: NOKU BCP OBStart: 03-23-2025 End: 24-05-7226Gvomzk flowsheetCorey Chary DO Work Phone: noms BCP OBStart: 03-23-2025 End: 98-37-8373jpnhblacosUWGPH FAZIONot AvailableStart: 03-23-2025 End: 23-69-8538Xjkdwd outpatient visit 15 minutesCorey Chary DO Work Phone: [facility] BCP OBComment on above:Female infertility; PCOS (polycystic ovarian syndrome)Start: 09-09-2024 End: 75-15-0743Pzqyas outpatient visit 25 minutesLindsora Posada NP Work Phone: noms SWS UCComment on above:Acute cough (Primary Dx); BronchitisStart: 09-09-2024 End: 50-55-2296abmgzzikkyCUREMFZ N Saravanan AvailableStart: 09-13-2022 End: 93-32-4076Ifuwmsbadp and management of inpatientMD Helio Campos Work Phone: [facility] SouthStart: 09-12-2022 End: 70-48-4075fpzpbvaablUVYZQW RODRIGUEZFacility:D6Dfzvf: 10-19-2021 End: 53-52-7380uuggueclorJQ HELIO A NADERERFacility:X9Lenio: 10-03-2021 End: 92-35-0069jsquydivqzMM HELIO A NADERERFacility:S9Tjxff: 09-30-2021 End: 13-55-6044ghjgcvfktfHB SUMI MARKERFacility:H1 Procedures DateProcedureProcedure DetailPerforming ClinicianStart: 80-11-7147ABOJMDCBJ VAGINITIS (HTRX)Betsy JUÁREZ Work Phone: Start: 48-28-5160Abwqy dip stick/tablet rgnt non-auto w/o micrscpAmy Bebeto JUÁREZ Work Phone: Start: 35-82-8161Ffusb dip stick/tablet rgnt non-auto w/o micrscpCorey Chary DO Work Phone: Start: 07-32-1539OZH TESTKrwilliam Temple [employer]TER Work Phone: Start: 56-48-1505Rcydw dip stick/tablet rgnt non-auto w/o micrscpCorey Chary DO Work Phone: Start: 35-96-1896GOY PREG QUANT HCGCorey Chary DO Work Phone: Start: 73-96-6123LNE PREG QUANT HCGCorey Chary DO Work Phone: Start: 22-91-0640Iyglj test visual color cmprsn methsAnthony G Tesmond DO Work Phone: Start: 55-31-6499HZM PROGESTERONECorey Chary DO Work Phone: Start: 25-53-7193MRM HEMOGLOBIN L1MYgiqj Chary DO Work Phone: Start: 33-79-2465Tbvq cerv/vag auto thin layer prep mnl screenJonatantonio Barnard Plan of Treatment DateCare ActivityDetailAuthorStart: 08-18-2025 End: 62-44-0784Hoxkanx encounter /18/2025 11:10 AM EST Routine [facility] [address] [place] [address] Renee Diez, DO [address] [place] [address] [facility] OBGYNStart: 08-18-2025 End: 64-70-4062Pwvyejtunucd / ancillary services mcnvoyveya47/18/2025 10:00 AM EST Ancillary Procedure [facility]NNIS[facility] [address] [place] [address] [phone] [place] OBGYNStart: 07-27-2025 End: 69-12-4026Ndyblbu encounter procedureNOMS BCP OBStart: 07-13-2025 End: 83-25-1263Uiimdxf encounter procedureNOMS [place] OBGYNComment on above: ArrivedStart: 07-13-2025 End: 53-37-0203Yqvsw fetoprotein, maternalAlpha fetoprotein, maternal Lab Routine Need for maternal serum alpha-protein (MSAFP) screening ([facility]) Expected: 07/13/2025 (Approximate), Expires: 07/13/2026NODE HealthcareComment on above:Expected: 07/13/2025 (Approximate), Expires: 07/13/2026Start: 07-13-2025 End: 06-82-1593RV for pregnancyUS OB 14+ weeks anatomy scan Imaging Routine Screening, , for anatomic survey ([facility]) Expected: 07/13/2025, Expires: 10/13/2025[facility] HealthcareComment on above:Expected: 07/13/2025, Expires: 10/13/2025Start: 06-15-2025 End: 06-79-4162Mdpyfxl encounter procedureNOMS Ella OBGYNComment on above: ArrivedStart: 59-17-3355Drfwawqib vaccinationNODE HealthcareStart: 05-15-2025 End: 53-93-8179JZR/RhABO/Rh Lab Routine Missed menses , unspecified gestational age ([facility]) Expected: 05/15/2025 (Approximate), Expires: 05/15/2026NODE HealthcareComment on above:Expected: 05/15/2025 (Approximate), Expires: 05/15/2026Start: 05-15-2025 End: 40-50-3007Hyryu type and Indirect antibody screen panel - BloodType and screen Lab Routine Missed menses , unspecified gestational age ([facility]) Expected: 05/15/2025 (Approximate), Expires: 05/15/2026[facility] Healthcare Comment on above:Expected: 05/15/2025 (Approximate), Expires: 05/15/2026Start: 05-15-2025 End: 19-66-4990Nqols of abuse panel - Urine by Screen methodRapid drug screen, urine Lab Routine , unspecified gestational age ([facility]) Encounter for supervision of normal first in first trimester ([facility]) Expected: 05/15/2025 (Approximate), Expires: 05/15/2026[facility] HealthcareComment on above: Expected: 05/15/2025 (Approximate), Expires: 05/15/2026Start: 05-15-2025 End: 21-10-4656gbuowloswa24/15/2025 10:00 [place] [address] JOXE [place] OBGYNStart: 05-15-2025 End: 37-87-5636Uybsyquogggo / ancillary services ucxmsuklmr82/15/2025 9:30 AM EDT [place] [address] HWHZ [place] OBGYNStart: 05-06-2025 End: 88-11-6059JJ Pelvis transvaginalUS OB transvaginal Imaging Routine Missed menses Positive urine test ([facility]) Expected: 05/06/2025, Expires: 08/06/2025[facility] Work Phone: comment on above:Expected: 05/06/2025, Expires: 08/06/2025Start: 03-24-2025 End: 41-51-6212Qwbdwbdszeew / ancillary services auvwfndbmh63/24/2025 10:00 AM EDT Ancillary Procedure [facility] [address] [place], [place] [phone] [facility] BCP OBStart: 03-23-2025 End: 39-74-3264Ifrnrqgwnoziq hormone (AMH)Antimullerian hormone (AMH) Lab Routine Female infertility PCOS (polycystic ovarian syndrome) Expected: 03/23/2025, Expires: 03/23/2026NODE HealthcareComment on above:Expected: 03/23/2025, Expires: 03/23/2026Start: 03-23-2025 End: 62-56-9560DYO W Auto Differential panel - BloodCBC and differential Lab Routine Female infertility PCOS (polycystic ovarian syndrome) Expected: (Approximate), Expires: 03/23/2026NODE HealthcareComment on above: Expected: 03/23/2025 (Approximate), Expires: 03/23/2026Start: 03-23-2025 End: 56-07-3408BVWNZGCV Lab Routine Female infertility PCOS (polycystic ovarian syndrome) Expected: 03/23/2025, Expires: 03/23/2026NOMS HealthcareComment on above:Expected: 03/23/2025, Expires: 03/23/2026Start: 03-23-2025 End: 87-09-9484ISJT-sulfateDHEA-sulfate Lab Routine Female infertility PCOS (polycystic ovarian syndrome) Expected: 03/23/2025(Approximate), Expires: 03/23/2026NODE HealthcareComment on above:Expected: 03/23/2025 (Approximate), Expires: 03/23/2026Start: 03-23-2025 End: 98-31-6363Apatgdrz stimulating hormoneFollicle stimulating hormone Lab Routine Female infertility PCOS (polycystic ovarian syndrome) Expected: 03/23/2025 (Approximate), Expires: 03/23/2026[facility] HealthcareComment on above: Expected: 03/23/2025 (Approximate), Expires: 03/23/2026Start: 03-23-2025 End: 39-33-6570nJH, quantitative, pregnancyhCG, quantitative, Lab Routine Female infertility PCOS (polycystic ovarian syndrome) Expected: 03/23/2025 (Approximate), Expires: 03/23/2026[facility] Work Phone: comment on above:Expected: 03/23/2025 (Approximate), Expires: 03/23/2026Start: 03-23-2025 End: 78-47-2957Amiexmzkzy A1c/Hemoglobin.total in BloodHemoglobin A1c Lab Routine Female infertility PCOS (polycystic ovarian syndrome) Expected: 03/23/2025 (Approximate), Expires: 03/23/2026NODE HealthcareComment on above: Expected: 03/23/2025 (Approximate), Expires: 03/23/2026Start: 03-23-2025 End: 69-85-3437Fvxcaxzzkvq hormoneLuteinizing hormone Lab Routine Female infertility PCOS (polycystic ovarian syndrome) Expected: 03/23/2025 (Approximate), Expires: 03/23/2026NODE HealthcareComment on above:Expected: 03/23/2025 (Approximate), Expires: 03/23/2026Start: 03-23-2025 End: 13-81-4738Evlsygugodj [Units/volume] in Serum or PlasmaTSH Lab Routine Female infertility PCOS (polycystic ovarian syndrome) Expected: 03/23/2025 (Approximate), Expires: 03/23/2026NODE HealthcareComment on above:Expected: 03/23/2025 (Approximate), Expires: 03/23/2026Start: 03-23-2025 End: 47-59-9241Qflslboys (T4) free [Mass/volume] in Serum or PlasmaT4, free Lab Routine Female infertility PCOS (polycystic ovarian syndrome) Expected: 03/23/2025 (Approximate), Expires: 03/23/2026NODE HealthcareComment on above: Expected: 03/23/2025 (Approximate), Expires: 03/23/2026Start: 03-23-2025 End: 97-96-9023OQ PelvisUS Pelvis w/ TV Imaging Routine Female infertility PCOS (polycystic ovarian syndrome) Expected: 03/23/2025, Expires: 03/23/2026[facility] HealthcareComment on above:Expected: 03/23/2025, Expires: 03/23/2026Start: 25-30-8604Chejxnppj vaccinationInfluenza Vaccine (#1)[facility] HealthcareStart: 31-29-4649LbqkuyqkpSt. Francis Hospitaltart: 06-59-1909Wmyowtie admission Regional Medical CenterBacteria identified in Urine by CultureUrine culture Microbiology Routine Missed menses Ordered: 05/15/2025[facility] Healthcare Comment on above:Ordered: 05/15/2025BC W Auto Differential panel - BloodCBC and differential Lab Routine Missed menses , unspecified gestational age ([facility]) Ordered: 05/15/2025[facility] HealthcareComment on above:Ordered: 05/15/2025 CHLAMYDIA TRACHOMATIS (GENITO/STI)CHLAMYDIA TRACHOMATIS (GENITO/STI) Lab Routine Exposure to STD Ordered: 07/13/2025[facility] HealthcareComment on above:Ordered: 07/13/2025ytology Cervical or vaginal smear or scraping studyPap Smear Pathology and Cytology Routine Well woman exam with routine gynecological exam Ordered: 07/13/2025[facility] HealthcareComment on above:Ordered: 07/13/2025hCG, quantitative, pregnancyhCG, quantitative, Lab Routine Possible Amenorrhea Ordered: 04/19/2025[facility] HealthcareComment on above:Ordered: 04/19/2025hCG, serum, qualitativehCG, serum, qualitative Lab Routine Possible Amenorrhea Ordered: 04/19/2025[facility] Healthcare Work Phone: Comment on above:Ordered: 04/19/2025Hemoglobin A1c/Hemoglobin.total in BloodHemoglobin A1c Lab Routine Missed menses , unspecified gestational age ([facility]) Ordered: 05/15/2025[facility] HealthcareComment on above:Ordered: 05/15/2025Hepatitis B virus surface Ag [Presence] in Serum or Plasma by ImmunoassayHepatitis B surface antigen Lab Routine Missed menses , unspecified gestational age ([facility]) Ordered: 05/15/2025[facility] HealthcareComment on above:Ordered: 05/15/2025Hepatitis C virus Ab [Presence] in Serum or Plasma by ImmunoassayHepatitis C antibody Lab Routine Missed menses , unspecified gestational age ([facility]) Ordered: 05/15/2025[facility] HealthcareComment on above:Ordered: 05/15/2025HIV-1/HIV-2 antigen/antibody combination immunoassayHIV-1 and HIV-2 antibodies Lab Routine Missed menses , unspecified gestational age ([facility]) Ordered: 05/15/2025[facility] HealthcareComment on above:Ordered: 05/15/2025Neisseria gonorrhoeae DNA [Presence] in Unspecified specimen by BERNARDINO with probe detectionNeisseria gonorrhea DNA probe, direct Lab Routine Exposure to STD Ordered: 07/13/2025[facility] HealthcareComment on above:Ordered: 07/13/2025Patient EducationBipolar Disorder (DC) [facility] InstructionsTri[facility] Ctr Work Phone: [facility] referralTrihealth Ctr Work Phone: ProgesteroneProgesterone Lab Routine Female infertility PCOS (polycystic ovarian syndrome) Ordered: 03/23/2025[facility] HealthcareComment on above:Ordered: 03/23/2025Reagin Ab [Presence] in Serum by RPRRPR Lab Routine Missed menses , unspecified gestational age ([facility]) Ordered: 05/15/2025[facility] HealthcareComment on above:Ordered: 05/15/2025 Rubella antibody, IgGRubella antibody, IgG Lab Routine Missed menses , unspecified gestational age ([facility]) Ordered: 05/15/2025[facility] HealthcareComment on above:Ordered: 05/15/2025SURESWAB(R) ADVANCED VAGINITIS PLUS, TMASURESWAB(R) ADVANCED VAGINITIS PLUS, TMA Pathology and Cytology Routine Exposure to STD Ordered: 07/13/2025[facility] Healthcare Work Phone: comment on above:Ordered: 07/13/2025US Pelvis transvaginalUS OB transvaginal Imaging Routine Missed menses Positive urine test ([facility]) 0:06 AM EDTTHE [facility]IC SPECIALTY [facility] Healthcare Immunizations Immunization DateImmunizationNotesCare AemacmnjLbxqfrzo73-20-9308cdddtuujz virus vaccine, unspecified formulationBreana Inder [employer] Work Phone: [facility] Healthcare Payers DatePayer CategoryPayerPolicy ID2023Medicaid (Managed Care)[facility] [id number]-cot [id number] 2018MedicaidMEDICAID [place] [id number] 2.0.1.984250.3.57[id number] 2.0.1.854368.3.57[id number] 2..1.152245.3.57[id number] 2.16.840.1.484602.3.57[id number] 2.16.840.1.033663.3.57[id number] 2.16.840.1.452850.3.57[id number] 2.16.840.1.344151.3.57[id number] 2.16.840.1.877329.3.57[id number] 2.16.840.1.696371.3.57[id number] 2.16.840.1.574603.3.57[id number] 2.16.840.1.435351.3.57[id number] 2.16.840.1.341380.3.579.2.1259 [id number] 2.16840.1.665425.3.579.2.531 Social History DateTypeDetailFacilityStart: 14-98-4373Eiffrzz smoking status NHISSmoker (finding)[facility]: 14-89-9591Khl Assigned At FemaleSt. Francis Hospitaltart: 47-76-9325Qlldfll smoking status NHISNever smoked tobaccoNOMS HealthcareStart: 66-51-6926Tjcqhcd use and exposure Smokeless tobacco non-userNOMS HealthcareStart: 04-05-2023 End: 07-26-3397Secjbsfma beverage intakeLifetime non-drinker (finding)[facility] HealthcareStart: 04-05-2023 End: 69-53-0893Lbhemhb of Social functionNODE HealthcareStart: 04-05-2023 End: 07-13-5817Ajftmqx use panelTHE [facility] HealthcareStart: 81-35-1993Hup assigned at birthNot on fileNODE HealthcareStart: 95-31-2540ZiyhotzsjQHXT HealthcareStart: 22-26-6819PvmNsoryrQUHP Healthcare Goals DatePatient GoalDesired Activity/State Functional Status GbnqMjcipcfmspUrtxtpOvykmqxg56-33-9342Hgghuytlyr statusPatient at Baseline [facility] Work Phone: Mental Status DjbkHlnsdxueuvDiojamMvqegfca65-56-4356Iokfleqih functionCognitive Status Patient at BaselineFostoria City Hospital Work Phone: Clinical Notes 09-13-2022 to 07-13-2025 Note Date & LyckJkkqLvlsqxzm80-39-9999 History of Present illness Narrative* Beata Greenberg MA - 07/13/2025 2:30 PM [...] nursing note reviewed. Exam conducted with a hospice case manager present. Vitals: Estimated body mass index is 53.93 kg/m as calculated from the following: Height as of 03/23/25: 4' 11 . Weight as of this encounter: 267 lb. BP: 116/72 Patient's last menstrual period was 03/21/2025. ASSESSMENT & PLAN ICD-10-CM 1. Second trimester ([facility]) Z34.92 POCT urinalysis dipstick manually resulted 2. 15 weeks gestation of ([facility]) Z3A.15 3. Well woman exam with routine gynecological exam Z01.419 Pap Smear 4. Exposure to STD Z20.2 SURESWAB(R) ADVANCED VAGINITIS PLUS, TMA CHLAMYDIA TRACHOMATIS (GENITO/STI) Neisseria gonorrhea DNA probe, direct 5. Need for maternal serum alpha-protein (MSAFP) screening ([facility]) Z36.1 Alpha fetoprotein, maternal Alpha fetoprotein, maternal 6. Screening, , for anatomic survey ([facility]) Z36.89 OB 14+ weeks anatomy scan Return OB/Annual [...] No pertinent surgical history. documented in this encounterFulton Medical Center- FultonEaomgksrwq41-43-1306 History of Present illness Narrative* Faye Sutton, CHANELLE - 06/15/2025 10:40 AM EDT Reason for Appointment: Patient ID: [...] nursing note reviewed. Exam conducted with a hospice case manager present. Vitals: Estimated body mass index is 53 kg/m as calculated from the following: Height as of 03/23/25: 4' 11 . Weight as of this encounter: 262 lb 6.4 oz. BP: 118/70 Patient's last menstrual period was 03/21/2025. ASSESSMENT & PLAN ICD-10-CM 1. Second trimester ([facility]) Z34.92 POCT urinalysis dipstick manually resulted 2. First trimester ([facility]) Z34.91 POCT urinalysis dipstick manually resulted 3. 11 weeks gestation of ([facility]) Z3A.11 POCT urinalysis dipstick [...] does not desire to be seen by M at this time for medication management. Patient to return to clinic in 4 weeks for routine OB care. Documented by Faye Sutton LPN on behalf of: Renee Diez DO documented in this encounterFulton Medical Center- FultonHljbpuoslp23-87-0820 History of Present illness Narrative* Beata Greenberg MA - 05/15/2025 10:00 AM [...] urinalysis dipstick manually resulted Positive urine test ([facility]) - US OB transvaginal; Future Amenorrhea 7 weeks gestation of ([facility]) Bipolar affective disorder, remission status unspecified (HCC) Borderline personality disorder (HCC) , unspecified gestational age ([facility]) - Type and screen; Future - ABO/Rh; Future - CBC and differential - Hemoglobin A1c - RPR - Rubella antibody, IgG - Hepatitis B surface antigen - Hepatitis C antibody - HIV-1 and HIV-2 antibodies - Rapid drug screen, urine; Future Encounter for supervision of normal first in first trimester ([facility]) - Rapid drug screen, urine; Future Nurse Note: Pt desires P[place] billion to one. Pt was advised she has to be 9 weeks gestation in order to have P[place]nee drawn along w/ labs. PVU. Pt is [...] by: Beata Greenberg MA documented in this encounterFulton Medical Center- FultonDgyzuafltn22-90-3053 History of Present illness Narrative* Betsy Cloud, RADHA - 04/19/2025 9:30 AM EDT HPI: Historian of HPI: patient and significant [...] Additional Comments: Want blood labs sent to [facility] ROS: A complete system ROS was [...] Follow-Up: PRN/gynecology if applicable. documented in this encounterFulton Medical Center- [id number] History of Present illness Narrative* Faye Sutton, CHANELLE - 03/23/2025 8:40 AM EDT Reason for Appointment: Patient ID: Alexia Tristan [...] nursing note reviewed. Exam conducted with a hospice case manager present. Vitals: Estimated body mass index [...] to see about safe mood stabilizer than Irvin and specialist can reach out to office to discuss with Dr. Diez safer medications. Documented by Faye Sutton LPN on behalf of: Renee Diez DO documented in this encounterFulton Medical Center- FultonZrijbloddf80-20-5135 History of Present illness Narrative* Breana Posada NP - 09/09/2024 12:50 PM EST Images from the original note were not included. [address] , [address] [facility], [address] P: [phone] F: [phone] HPI Historian of HPI: patient Alexia Tristan [...] Left Turbinates: Enlarged and swollen. Mouth/Throat: Lips: [place]. Mouth: Mucous membranes are moist. Pharynx: Oropharynx [...] infection and when to report to ER. Phu in 24 hours. Call office if symptoms [...] 21 capsule; Refill: 0 documented in this [facility]12-16-2022 Discharge summary Author [facility] September 15, 2022 10:37amNote Date/TimeDecember 2021 10:25[place] [address] Discharge Summary Signed Patient: Kay Busch MR#: [id number] : 2000 Acct:[id number] Age/Sex: 22 / F Adm Date: 2 Loc: Room: [address] [place] [address]: Param Rao MD Copies to: MD Helio Haley MD~ Providers Date of Discharge: 09/15/22 Discharging Provider: Param Rao Primary Care Provider: Helio Campos Discharge Diagnosis (1) Bipolar disorder: Final Diagnosis [...] that she did not need them anymore.? Shereported that things have bubbled up and wanted [...] conflict with peers or staff. On the dayof discharge she reported she is feeling better. She denied any further depression, suicidality, orirritability. She was comfortable discharge plan home and stated [facility]. She was future oriented and stated [...] Instructions: Bipolar Disorder (DC), [facility] DC Instructions Stand Alone Forms: Work/School Release Form Prescriptions: New bupropion HCl 150 mg Tablet Extended Release 24 Hr 150 mg PO QAM 30 Days Qty: 30 0RF Vraylar 3 mg Capsule 3 mg PO DAILY 30 Days Qty: 30 0RF nicotine 14 mg/24 hr Patch 24 Hour 1 ea transdermal DAILY Qty: 30 0RF Follow Up: [facility] [Outside] [facility] [Outside] ( senior case manager: (Insert date/time here) Therapy:? (insert date/time here) Intake: (Insert date/time here) Please bring a copy of your photo ID, insurance card, and proof of household income.? Psychiatry: (Insert date/time here) Group: (Insert date/time here ) ) Helio Campos MD [Primary Care Provider] - (Contact this provider for your medical needs) Documented By: Param Rao MD 09/15/22 1022 Signed By: <Electronically signed by Param Rao MD> 09/15/22 1037 [facility] Work Phone: 1(284) 181-796912-15-2022 Progress note Author [facility] September 14, 2022 12:20pmNote Date/TimeDece2021 12:20pmTimothy [place] [id number] Psychiatry Progress Note Signed Patient: Kay Busch MR#: [id number] : 2000 Acct:[id number] Age/Sex: 22 / F Adm Date: 2 Loc: 1S Room: 1O6081-9 Type : ADM IN Attending Dr: Param Rao MD Copies to: ~ Date of Service: 09/14/2022 Subjective Subjective Narrative: Ms. Busch reported that she is doing fine. She stated that she is doing really good and feels confident that she will be okay. She stated that she justwants to go home and reported that ApiFixhas been helping her. She denied any side [...] signed by Param Rao MD> 09/14/22 1220 [facility] Work Phone: 1(186) 430-905512-14-2022 History and physical note Author [facility]am [facility] September 13, 2022 12:48pmNote Date/TimeDece2021 12:48pm[place] [address] Psychiatry H&P Signed Patient: Kay Busch MR#: [id number] : 2000 Acct:[id number] Age/Sex: 22 / F Adm Date: 2 Loc: Room: [address] [place] [address] Type: ADM IN Attending Dr: Param Rao [...] CNXI: Shoulder shrug strong, equal bilaterally, CNXII: Tongueprotrusion midline, movement symmetrical. Extrem: normal to inspection [...] signed by Param Rao MD> 09/13/22 1248 [facility] Work Phone: Evaluation note* Diagnosis Onset Date Resolution Status Bipolar disorder acute [facility] Work Phone: Evaluation note* Diagnosis Acute [...] note* Diagnosis Missed menses Positive urine test ([facility]) Amenorrhea Absence of menstruation 7 weeks gestation of ([facility]) Bipolar affective disorder, remission status unspecified (HCC) Borderline personality disorder (HCC) Borderline personality disorder , unspecified gestational age ([facility]) Encounter for supervision of normal first in first trimester ([facility]) documented [facility]* Diagnosis Second trimester ([facility]) state, incidental First trimester ([facility]) state, incidental 11 weeks gestation of ([facility]) documented in this encounter [facility]* Diagnosis Tinea- Primary Dermatophytosis of unspecified site Second trimester ([facility]) state, incidental 15 weeks gestation of ([facility]) Well woman exam with routine gynecological exam Routine gynecological examination Exposure to STD Need for maternal serum alpha-protein (MSAFP) screening ([facility]) Screening, , for anatomic survey ([facility]) Encounter for anatomic survey documented [facility] encounter [facility] Dis[facility] instructions Additional Instructions Regular diet. No activity restrictions.[facility] Work Phone: Chief Complaint and Reason [...] Status: Inactive Member Role Status Dates Helio Campos MD Primary Care Provider Active Tomer Haley Provider, Attending ProviderActive Team Status: Active Member Role Status Dates Helio Campos MD Primary Care Provider Active Team MemberRelationshipSpecialtyStart DateEnd Date Helio Campos MD [address] [place] [address] PCP - [facility] Medicine04/05/23Team MemberRelationshipSpecialtyStart DateEnd Date Helio Campos MD [address] [place] [address] PCP - [facility]04/05/23Team MemberRelationshipSpecialtyStart DateEnd Date Helio Campos MD [address] [place] [address] PCP - [facility]04/05/23Team MemberRelationshipSpecialtyStart DateEnd Date Helio Campos MD [address] [place] [address] PCP - [facility]04/05/23Team MemberRelationshipSpecialtyStart DateEnd Date Helio Campos MD [address] [place] [address] PCP - [facility]04/05/23Team MemberRelationshipSpecialtyStart DateEnd Date Helio Campos MD [address] [place] [address] [facility] - [facility]04/05/23 Breana Posada NP [address] [place] [address] [facility]12/30/2510Te MemberRelationshipSpecialtyStart Date End Date Helio Campos MD [address] [place] [address] PCP - [facility]04/05/23 Breana Posada NP [address] [place] [address] [facility] [place] [address]Te MemberRelationshipSpecialtyStart Date End Date Helio Campos MD [address] [place] [address] PCP - [facility]04/05/23 Breana Posada NP [address] [place] [address] [address] MemberRelationshipSpecialtyStart Date End Date Helio Campos MD [address] [place] [address] PCP - [facility]04/05/23 Breana Posada NP [address] [place] [address] [facility]12/30/2510Team MemberRelationshipSpecialtyStart Date End Date Helio Campos MD [address] [place] [address] PCP - [facility]04/05/23 Breana Posada NP [address] [place] [address] [facility]12/30/2510Team MemberRelationshipSpecialtyStart Date End Date Helio Campos MD [address] [place] [address] PCP - [facility]04/05/23 Breana Posada NP [address] [place] [address] [facility]12/30/2510 INFORMATION SOURCE (unrecogn ized section and content) DATE CREATED AUTHOR 09/21/2022 [facility] DATE CREATED AUTHOR AUTHOR'S ORGANIZ ATION 04/17/2025 [facility] DATE CREATED AUTHOR AUTHOR'S ORGANIZ ATION 07/14/2025 [facility] EPIC Reason for Visit (unrecogniz ed section and content) ReasonCommentsInfertilityReasonCommentsAmenorrheaReasonCommentsRoutine VisitReasonCommentsRoutine VisitGynecologic ExamSTI Screening FOR RECORDS PERTAINING TO PATIENTS WHO [...] BE BASED ON THE PRIMARY CLINICAL RECORDS. [facility]. provides no warranty or guarantee of the accuracy or completeness of information in this document.
== END 2025-08-04 14:55 | disposition home or self-care (01) ==
LOC: LAB 14:56
PROVIDERS: PCP Nurse Practitioner Family; Visit Provider Physician Assistant
DX: Z34.92 Encounter for supervision of normal pregnancy, unspecified, second trimester (principal); Z36.1 Encounter for antenatal screening for raised alphafetoprotein level
CPT/HCPCS: 36415; 82105

== ENCOUNTER 2025-09-28 13:31 | Outpatient (OUT) | payer OTHER, SELFPAY ==
--- OUTSIDE RECORDS SUMMARY | 2025-07-01 06:00 | XMS_ITS ---
Author Organization The [facility] in [place] Address [address] [place] [address] Care Team Providers Care Experimental Mechanic Electrical Name Role Phone Carole Desouza Primary Care Provider [phone] REASON FOR VISIT yearly check up Encounters Encounter Location Date Provider Diagnosis [facility] [address] [place] [address] 07/01/2025 Carole Desouza Plan Of Treatment No Information Progress Notes * Kay TRISTAN MDOB: [birth year] (25 yo F)Acc No.[id number]:07/01/2025 UNLOCKED PROGRESS NOTE Progress Note Patient: Ayush MARIE Kay Chris :?Carole TEIXEIRA), CNPDOB:2000 ???Age:25 Y???Sex:FemaleDate:07/01/2025Phone:[phone]:[address] [place], [place] [id number] Subjective: * Chief Complaints: * 1 . Yearly check up. * Medical History: Objective: * Vitals: Assessment: Plan: * Treatment: * * Electronic signature of Carole Desouza NP, ALLERGY NURSE.MANAGER [id number] on 09/28/2025 at 01:37 PM ESTSign off status: PendingVisit Status:?N/S N/C (No Show/No Charge) * Provider: Jason TEIXEIRA), MANAGER POOL Date: 1 Generated for Printing/Faxing/eTransmitting on:?09/28/2025 01:37 PM EST
--- OUTSIDE RECORDS SUMMARY | 2025-09-16 10:30 | XMS_ITS | Encounter Summary ---
Author Organization [facility] Address [address] [place] [address] Care Team Providers Care Resident Service Coordinator Name Role Phone Helio Campos MD Primary Care Provider [phone] Reason for Visit * ReasonCommentsRoutine Visit Encounter Details DateTypeDepartmentCare Team (Latest Contact Info)Iuttpduquac67/17/2025 10:30 AM ESTRoutine [facility] [address] [place] [address] Betsy Tate PA [address] [place], [facility]11 Second trimester ([facility]); 24 weeks gestation of ([facility]); Diabetes mellitus screening Social History Tobacco UseTypesPacks/DayYears UsedDateSmoking Tobacco: NeverSmokeless Tobacco: NeverAlcohol UseStandard Drinks/WeekCommentsNever0 (1 standard drink = 0.6 oz pure alcohol)PHQ-2AnswerDate RecordedPatient Health Questionnaire-2 Score0 09/08/2025Estimated Date of ZmrftyjgRdcudnjzAcb15/03/2026Based on UltrasoundSex and Gender InformationValueDate RecordedSex Assigned at BirthNot on fileLegal AzpYnwjao05/15/2023 11:46 PM EDTGender IdentityNot on fileSexual OrientationNot on filedocumented as of this encounter Last Filed Vital Signs Vital SignReadingTime TakenCommentsBlood Evfkclys346/7009/16/2025 10:27 AM EST Pulse--Temperature--Respiratory Rate--Oxygen Saturation--Inhaled Oxygen Concentration--Eauocy825 kg (262 lb)09/16/2025 10:27 AM ESTHeight--Body Mass Index52.9206/ 9:02 AM EDTdocumented in this encounter Progress Notes * Tamara Schafer - 09/16/2025 10:30 AM EST Reason for Appointment: Patient ID: Kay Tristan is a 25 y.o. female who presents for Routine Visit Patient presents today for Return OB appointment. MEDICATIONS Current Outpatient Medications Medication Instructions hydrOXYzine HCl (Atarax) 10 MG tablet TAKE 1 TABLET BY MOUTH ONCE A DAY NEEDED FOR ANXIETY nystatin (Mycostatin) 993797 UNIT/GM powder Topical, 3 times daily ondansetron ODT (Zofran-ODT) 4 MG disintegrating tablet DISSOLVE 1 TABLET ON TONGUE EVERY 6 HOURS NEEDED FOR NAUSEA/VOMITING promethazine (PHENERGAN) 12.5 mg, Oral, Every 6 hours PRN, Take 1 tablet by mouth every 6 hours as needed for nausea. QUEtiapine (SEROQUEL) 50 mg, Oral, Nightly Zoloft 25 mg, Daily ALLERGIES No Known Allergies PROBLEMS Active Ambulatory Problems Diagnosis Date Noted Bipolar disorder ([facility]) 05/15/2025 Borderline personality disorder (HCC) 05/15/2025 Resolved [...] nursing note reviewed. Exam conducted with a nipple maker present. Vitals: Estimated body mass index is 52.92 kg/m?? as calculated from the following: Height as of 03/23/25: 4' 11 . Weight as of this encounter: 262 lb. BP: 118/70 Patient's last menstrual period was 03/21/2025. ASSESSMENT & PLAN ICD-10-CM 1. Second trimester ([facility]) Z34.92 CBC and differential US OB follow up transabdominal approach 2. 24 weeks gestation of ([facility]) Z3A.24 POCT urinalysis dipstick manually resulted CBC and differential US OB follow up transabdominal approach 3. Diabetes mellitus screening Z13.1 CBC Glucose tolerance, 1 hour CBC and differential CBC Glucose tolerance, 1 hour Assessment/Plan Return OB: Patient presents today for a routine obstetrics appointment. Patient is currently 24w5d . Patient states she is doing well but has complaints of being tired due to current . Patient has verbalizes frequent movement. labor precautions was discussed/given and patient was instructed to perform kick counts three times a day. Orders Placed This Encounter Procedures US OB follow up transabdominal approach CBC Glucose tolerance, 1 hour CBC and differential POCT urinalysis dipstick manually resulted Follow Up: Patient is to return to office in 4 week for routine OB appointment. Documented by Tamara Schafer CST on behalf of: FRANCK Carreon documented in this encounter Plan of Treatment DateTypeDepartmentCare Team (Latest Contact Info)Mwvvzxriphk63/14/2026 2:00 PM ESTAncillary Procedure [facility] [address] [place] [address] 10/14/2025 2:40 PM ESTRoutine [facility] [address] [place] [address] CharyCuong mays, DO [address] [place] [address] NameTypePriorityAssociated DiagnosesOrder ScheduleCBCLabRoutine Diabetes mellitus screening Expected: 09/16/2025 (Approximate), Expires: 09/16/2026Glucose tolerance, 1 hour LabRoutine Diabetes mellitus screening Expected: 09/16/2025 (Approximate), Expires: 09/16/2026BC and differentialLab Routine Second trimester ([facility] 24 weeks gestation of ([facility]) Diabetes mellitus screening Ordered: 09/16/2025US OB follow up transabdominal approachImagingRoutine Second trimester ([facility] 24 weeks gestation of ([facility]) Expected: 09/16/2025, Expires: 01/15/2026documented as of this encounter Procedures Procedure NamePriorityDate/TimeAssociated DiagnosisCommentsPOCT URINALYSIS IBVNKHILEvizolu09/17/2025 10:28 AM EST 24 weeks gestation of ([facility]) documented in this encounter Results * POCT urinalysis dipstick manually resulted (09/16/2025 10:28 AM EST)Component ValueRef RangeTest MethodAnalysis TimePerformed AtPathologist SignatureColor, UAYellowClarity, UAClearGlucose, UANegativeNegative - 2000(110) ++++ mg/dL Bilirubin, UANegativeNegative - 4(70) +++ mg/dLKetones, UANegativeNegative - 160(16) ++++ mg/dLSpec Grav, UA1.0101 - 1.03Blood, UANegativeNegative - 50 Yogesh/mcLpH, UA6.55 - 9Protein, UANegativeNegative - 2000(20) ++++ mg/dL Urobilinogen, UA1.00.2 - 12 mg/dLLeukocytes, UANegativeNegative - 500+++ Jaci/mcLNitrite, UANegativeNegative - PositiveSpecimen (Source)Anatomical Location / LateralityCollection Method / VolumeCollection TimeReceived Time Urine09/16/2025 10:28 AM EST Narrative Authorizing ProviderResult TypeResult StatusClover Hill HospitalOINT OF CARE TEST ENTER/EDIT ORDERABLESFinal Result documented in this encounter Visit Diagnoses Diagnosis Second trimester ([facility] state, incidental 24 weeks gestation of ([facility]) Diabetes mellitus screening Screening for diabetes mellitus documented in this encounter Care Teams Team MemberRelationshipSpecialtyStart DateEnd Date Helio Campos MD [address] [place] [address] PCP - GeneralFamily Medicine04/05/23documented as of this encounter
--- OUTSIDE RECORDS SUMMARY | 2025-09-28 13:36 | XMS_ITS | Encounter Summary ---
Author Organization [facility] Address [address] [place] [address] Care Team Providers Care Lab Technician Name Role Phone Helio Campos MD Primary Care Provider [phone] Encounter Details DateTypeDepartmentCare Team (Latest Contact Info)Wgypznqxbru41/17/2025Bamboo flowsheet [facility] [address] [place] [address] Betsy Tate PA [address] [place], [facility] Social History Tobacco UseTypesPacks/DayYears UsedDateSmoking Tobacco: NeverSmokeless Tobacco: NeverAlcohol UseStandard Drinks/WeekCommentsNever0 (1 standard drink = 0.6 oz pure alcohol)PHQ-2AnswerDate RecordedPatient Health Questionnaire-2 Score0 09/08/2025Estimated Date of PaasfozhVplsbgdtTpe30/03/2026Based on UltrasoundSex and Gender InformationValueDate RecordedSex Assigned at BirthNot on fileLegal HxcPanbah19/15/2023 11:46 PM EDTGender IdentityNot on fileSexual OrientationNot on filedocumented as of this encounter Plan of Treatment DateTypeDepartmentCare Team (Latest Contact Info)Loqdnexayig62/14/2026 2:00 PM ESTAncillary Procedure [facility] [address] [place] [address] 10/14/2025 2:40 PM ESTRoutine [facility] [address] [place] [address] Cuong Diez DO [address] [place] [address] documented as of this encounter Visit Diagnoses Not on filedocumented in this encounter Care Teams Team MemberRelationshipSpecialtyStart DateEnd Date Helio Campos MD [address] [place] [address] PCP - GeneralFamily Medicine04/05/23documented as of this encounter
--- OUTSIDE RECORDS SUMMARY | 2025-09-28 13:37 | XMS_ITS | Clinical Summary ---
Author Organization [employer] Address [id number] [place] [address] Care Team Providers Care Irrigation Laborer Name Role Phone Helio Campos MD Primary Care Provider [phone] Allergies No known active allergies Medications MedicationSigDispense [...] standard drink = 0.6 oz pure alcohol)ChildcareAnswerDate IlmtfrfgGizntfdoiMqpvcjj38/12/2019Employment AnswerDate IlfqqbcaApbltmklcyLutrrlr90/12/2019Hunger ScreeningAnswerDate RecordedWithin the past 12 months we worried whether our food would run out before we got money to buy more.Never True08/31/2022Within the past 12 months the food we bought just didn't last and we didn't have money to get more.Never True08/31/2022CommentsNoSex and Gender InformationValueDate RecordedSex Assigned at LwwigCttjta96/23/2022 10:35 AM ESTLegal AioNyecrj60/06/2015 12:11 PM EDTGender CvdwdngcOrryuu86/23/2022 10:35 AM ESTSexual OrientationBisexual 08/23/2022 10:35 AM ESTSexual OrientationSomething else08/23/2022 10:35 AM EST Last Filed Vital Signs Vital SignReadingTime TakenCommentsBlood Sebltdiq025/7407 10:25 AM EDT Xekfx742008/31/2022 10:47 AM ESTTemperature--Respiratory Qdac711811/01/2021 10:47 AM ESTOxygen Saturation--Inhaled Oxygen Concentration--Hkmpqu59.8 kg (200 lb 3.2 oz)04/04/2023 10:25 AM THZTihqkc433.9 cm (4' 11 )04/04/2023 10:25 AM EDTBody Mass Index40.4407 10:25 AM EDT Plan of Treatment Health MaintenanceDue DateLast DoneCommentsChlamydia Uiovfmbco2002 Depression Cadowglnz30/07/2014Tobacco Cgyzlkjyy11/07/2014Pap Smear12/10/2023 12/09/2020TaP,Tdap and Td Vaccines (2 - Td or Tdap)/dult BMI Ppfuauqxj82/01/2023Influenza Enkgpdo17/, 06/13/2013, 07/25/2012, Additional history exists Medical Devices Not on file Insurance Care Teams Team MemberRelationshipSpecialtyStart DateEnd Date Helio Campos MD PCP - GeneralFamily Medicine04/04/23
--- OUTSIDE RECORDS SUMMARY | 2025-09-28 13:37 | XMS_ITS | Clinical Summary ---
Author Organization [facility] Healthcare Address [address] [place] [address] Care Team Providers Care Limited Radiology Technician Name Role Phone Helio Campos MD Primary Care Provider [phone] Allergies No known active allergies Medications MedicationSigDispense QuantityRefillsLast FilledStart DateEnd DateStatus Zoloft 25 MG tablet Take 25 mg by mouth Daily5Active QUEtiapine (SEROquel) 25 MG tablet Take 50 mg by mouth at yzwjtoh84/15/2025Active nystatin (Mycostatin) 178722 UNIT/GM powder Indications:TineaApply topically in the morning and in the evening and before bedtime. 15 g 6Active promethazine (Phenergan) 12.5 MG tablet Indications:NauseaTake 1 tablet (12.5 mg) by mouth every 6 (six) hours if needed for nausea or vomiting for up to 30 doses Take 1 tablet by mouth every 6 hours as needed for nausea. 30 tablet 5Active ondansetron ODT (Zofran-ODT) 4 MG disintegrating tablet DISSOLVE 1 TABLET ON TONGUE EVERY 6 HOURS NEEDED FOR NAUSEA/VOMITING 5Active hydrOXYzine HCl (Atarax) 10 MG tablet TAKE 1 TABLET BY MOUTH ONCE A DAY NEEDED FOR CDBATEG12/15/2025Active ondansetron ODT (Zofran-ODT) 4 MG disintegrating tablet Indications:NauseaTake 1 tablet (4 mg) by mouth every 6 (six) hours if needed for nausea or vomiting 30 tablet Expired Active Problems ProblemNoted DateDiagnosed DateBipolar icbxdyeu62/15/2025Borderline personality yvfhjgiv41/15/2025Estimated Date of JltsssmfXxenwrsbCin38/03/2026ased on Ultrasound Encounters DateTypeDepartmentCare AbpfNcwypsmxbom44/17/2025 10:30 [place] [address] Betsy Tate PA Second trimester ([facility]); 24 weeks gestation of ([facility]); Diabetes mellitus ksuldjgrd39/17/2025amboo flowsheet [facility] [facility] [place] [address] Betsy Tate PA 09/08/2025Patient Outreach NOM[facility] [address] [place] [phone] Betsy Babcock LPN 08/18/2025 11:10 AM ESTRoutine [facility] [place] [facility] [place] [address] Cuong Diez DO Second trimester ([facility]); 20 weeks gestation of ([facility])08/18/2025 10:00 AM ESTAncillary Procedure NOMOsiel [facility]wang [facility] [place] [address] Screening, , for anatomic survey ([facility])08/11/2025Patient Outreach N[facility] [address] [place] [phone] Betsy Babcock LPN 08/07/2025Orders Only [facility] [place] [facility] [place] [address] Beata Greenberg MA 08/04/2025linisync Result Encounter NOMS External Department Unsolicited Betsy Tate PA 08/04/2025Telephone [facility] [place] [address] Betsy Tate PA 07/14/2025Patient Outreach N[facility] [address] [place] [phone] Betsy Babcock LPN 07/14/2025Telephone [facility] [address] [address] Betsy Tate PA 07/13/2025 2:30 PM EDTRoutine NOM[facility] [address] [place] [address] Betsy Tate PA Tinea (Primary Dx); Second trimester ([facility]); 15 weeks gestation of ([facility]); Well woman exam with routine gynecological exam; Exposure to STD; Need for maternal serum alpha-protein (MSAFP) screening ([facility]); Screening, , for anatomic survey ([facility])07/13/2025External Result Encounter NOMS External Department Unsolicited Betsy Tate PA 07/13/2025bstract [facility] [address] [place] [address] [place] [address] Cuong Diez DO 07/13/2025amboo flowsheet [facility] [address] [place] [address] Betsy Tate PA 07/10/2025bstract N[facility] [address] [place] [address] Betsy Babcock LPN 07/08/2025Telephone [facility] [address] [facility] [place] [address] Beata Greenberg MA 07/06/2025Telephone [facility] [address] [place] [address] Beata Greenberg MA from Last 3 Months Family History RelationNameStatusCommentsBrotherAliveFatherAliveMotherAliveSisterAlive Social History Tobacco UseTypesPacks/DayYears UsedDateSmoking Tobacco: NeverSmokeless Tobacco: Never Tobacco Cessation:Counseling Given: Not Answered Alcohol UseStandard Drinks/WeekCommentsNever0 (1 standard drink = 0.6 oz pure alcohol)PHQ-2AnswerDate RecordedPatient Health Questionnaire-2 Sforr30111/09/2024 Estimated Date of RlpdlrlmQnthaqxpPoj90/03/2026ased on UltrasoundSex and Gender InformationValueDate RecordedSex Assigned at BirthNot on fileLegal VfgSwxgth38/15/2023 11:46 PM EDTGender IdentityNot on fileSexual OrientationNot on file Last Filed Vital Signs Vital SignReadingTime TakenCommentsBlood Dqhlaijl465/7009/16/2025 10:27 AM EST Ohgew34082/20/2025 9:36 AM XAZSvxgtwqkbho91.1 ??C (98.7 ??F)04/19/2025 9:36 AM EDTRespiratory Rate--Oxygen Wwcnprlwfv65%04/19/2025 9:36 AM EDTInhaled Oxygen Concentration--Qwprsk010 kg (262 lb)09/16/2025 10:27 AM HWEEfrzlr032.9 cm (4' 11 )03/23/2025 9:02 AM EDTBody Mass Index52.9203/23/2025 9:02 AM EDT Plan of Treatment DateTypeDepartmentCare Team (Latest Contact Info)Hkasxvbsuff95/14/2026 2:00 PM ESTAncillary Procedure [facility] [place] [address] [place] [address] 10/14/2025 2:40 PM ESTRoutine NOMOsiel [facility] [address] [facility] [place] [address] Cuong Diez, [address], [place] [phone] Health MaintenanceDue DateLast DoneCommentsInfluenza Vaccine (#1)06/01/2025 07/27/2014, 06/13/2013, 07/25/2012, Additional history existsPneumococcal Vaccine: Pediatrics (0 to 5 Years) and At-Risk Patients (6 to 64 Years)Aged Out No longer eligible based on patient's age to complete this topic Procedures Procedure NamePriorityDate/TimeAssociated DiagnosisCommentsPOCT URINALYSIS ZWKTJAPKOvbbavh87/17/2025 10:28 AM EST 24 weeks gestation of ([facility]) POCT URINALYSIS GOZXZZRLKddxabm46/18/2025 11:39 AM EST 20 weeks gestation of ([facility]) US OB 14+ WEEKS ANATOMY XTMIRbsuoqy94/18/2025 11:04 AM EST Screening, , for anatomic survey ([facility]) AFP, SERUM, OPEN SPINA TGDFVPAdemmaj23/04/2025 3:06 PM EST CULTURE, URINE, EPWFAFMXfovmpj20/14/2025 9:04 AM EDT Missed menses RECURRENT VAGINITIS (HTRX)Tipnsba4607/13/2025 3:44 PM EDT POCT URINALYSIS DPQTQHVDMxhqned35/13/2025 3:16 PM EDT Second trimester ([facility]) PAP DRCGPChkuwlc32/13/2025 2:47 PM EDT Well woman exam with routine gynecological exam PAP TEST, PFYURGUGWbtuwts66/13/2025 12:00 AM EDTfrom Last 3 Months Results * POCT urinalysis dipstick manually resulted (09/16/2025 10:28 AM EST) Only the most recent of3 resultswithin the [...] Location / LateralityCollection Method / VolumeCollection TimeReceived YqdnMiayz20/17/2025 10:28 AM EST Narrative Authorizing ProviderResult TypeResult StatusAmy [facility] TEST ENTER/EDIT ORDERABLESFinal Result * US OB 14+ weeks anatomy scan (08/18/2025 11:04 AM EST)Anatomical Region LateralityModalityBodyUltrasoundSpecimen (Source)Anatomical Location / LateralityCollection Method / VolumeCollection TimeReceived Time08/19/2025 1:10 PM EST Impressions 08/19/2025 1:42 PM EST Single, live intrauterine , current sonographic age of 21 weeks and 2 days, with an estimated date of delivery of December 27, 2025. * ??Estimated Weight (g) by Percentile is based upon an accurate estimated age based onlast menstrual period. ?? TRANSCRIBED BY: ? ELECTRONICALLY SIGNED BY: Hunter Huffman MD Narrative 08/19/2025 1:42 PM EST FINDINGS: A single, live intrauterine is present with normal cardiac rate of 144 beats per minute. Normal activity and amniotic fluid volume. Morphology is grossly normal. The cervix is long and closed, 4.1 cm. ??The placenta is anterior, inferior margin 6.7 cm from the closed internal cervical os. ??The current sonographic age is 21 weeks and 2 days, based on the following measurements: ?BPD ? 5.1 cm (21 weeks, 3 days) ?Head Circumference ?19.1 cm (21 weeks, 2 days) ?Abdominal Circumference ?16.6 cm (21 weeks, 5 days) ?Femur Length ? 3.4 cm (20 weeks, 6 days) ?Presentation ? Cephalic ?Placenta ? Anterior ? Weight (g) by Percentile ??83.2 % * These measurements result in an estimated date of delivery of December 27, 2025. ?? The current estimated weight is 414 grams (0 pounds,15 ounces). ?? Procedure Note Hunter Huffman MD - 08/19/2025 FINDINGS: A single, live intrauterine is present with normal cardiacrate of 144 beats per minute. Normal activity and amniotic fluidvolume. Morphology is grossly normal. The cervix is long and closed, 4.1cm. The placenta is anterior, inferior margin 6.7 cm from the closedinternal cervical os. The current sonographic age is 21 weeks and 2 days,based on the following measurements: BPD 5.1 cm (21 weeks, 3 days) Head Circumference 19.1 cm (21 weeks, 2 days) Abdominal Circumference 16.6 cm (21 weeks, 5 days) Femur Length 3.4 cm (20 weeks, 6 days) Presentation Cephalic Placenta Anterior Weight (g) by Percentile 83.2 % * These measurements result in an estimated date of delivery of November. The current estimated weight is 414 grams (0 pounds,15ounces). IMPRESSION: Single, live intrauterine , current sonographic age of 21 weeksand 2 days, with an estimated date of delivery of December 27, 2025. * Estimated Weight (g) by Percentile is based upon an accurateestimated age based on last menstrual period. TRANSCRIBED BY: ELECTRONICALLY SIGNED BY: Hunter Huffman MD Authorizing ProviderResult TypeResult StatusAmy [facility] US PROCEDURES Final Result * AFP, SERUM, OPEN SPINA BIFIDA (08/04/2025 3:06 PM EST)ComponentValueRef Range Test MethodAnalysis TimePerformed AtPathologist SignatureRESULTSReport.TBHTEST RESULTS:*Screen Negative*.TBHGEST. AGE ON COLLECTION DATE18.6. weeksTBHGESTAT. AGE BASED ONUltrasound.TBHComment: ?15.4 on 07/13/2025 Recalculations are not recommended when gestational dating by LMP and ultrasound are within 10 days. MATERNAL AGE AT EDD23.5. yrTBHRACECaucasian.SJOCAIANP111. lbsTBHINSULIN DEP DIABETESNo.TBHMULTIPLE GESTATIONNo.TBHAFP VALUE61.2. ng/mLTBHAFP MOM1.85.TBHOSBR RISK 1 FO2829.TBHINTERPRETATIONComment.TBHComment: Interpretation: Screen Negative This result is screen negative for OSB. The AFP MoM calculated is based on the gestational age provided. MS-AFP can identify up to 80% of open neural tube defects. Closed neural tube defects and some open defects may not be detected by this test. This test does not screen for Down Syndrome or Trisomy 18. If screening for Down Syndrome or Trisomy 18 is desired, contact [facility] [employer] [facility] to discuss available options. ??The [place] [employer] recommends amniocentesis be offered to women age 35 and older. COMMENT:Comment.TBHComment: Lesli Das, Ph.D., [facility] Director References: Available Upon Request. Multiples Of Median Cutoffs ?For AFP Elevations [place] ?? 2.5 ? Black ?2.8 IDD ? 2.0 ? Twins ?4.5 ?Abbreviation Definitions IDD - Insulin Dep Diabetes OSBR - Open Spina Bifida Risk For further inquiries contact [employer] [facility] at [phone]. This test was developed and its performance characteristics determined by [employer]. It has not been cleared or approved by the Food and Drug Administration. Performed at: ??[facility] [address] [place], [place] ??[id number] [employer] Consultant: Wayne Elena [facility], Phone: ??[phone] Specimen (Source)Anatomical Location / LateralityCollection Method / Volume Collection TimeReceived Time08/04/2025 3:06 PM EST08/04/2025 3:09 PM EST Narrative GEOVANNANC - 08/06/2025 12:08 AM EST N N ULTRASOUND [id number] 3 15 N 1 Y 267 N N N N N White/ Authorizing ProviderResult TypeResult StatusAmy [facility] BLOOD ORDERABLES Final ResultPerforming OrganizationAddressCity/State/ZIP CodePhone Number [facility]INIS[facility] * Urine culture (07/14/2025 9:04 AM EDT)Specimen (Source)Anatomical Location / LateralityCollection Method / VolumeCollection TimeReceived TimeUrineUrine specimen obtained by clean catch procedure / Unknown Narrative Authorizing ProviderResult TypeResult StatusCorevish RIZO MICROBIOLOGY - GENERAL ORDERABLESFinal ResultPerforming OrganizationAddressCity/State/ZIP Code Phone Number EXTERNAL LAB * (ABNORMAL) RECURRENT VAGINITIS (HTRX) (07/13/2025 3:44 PM EDT)ComponentValue Ref RangeTest MethodAnalysis TimePerformed AtPathologist SignatureATOPOBIUM SQWBIDU288.961 - 24.689 ppm07/14/2025 5:34 AM EDTHealthTrackRx at [facility] ATOPOBIUM VAGINAENot Zeaglxxi66.961 - 24.689 ppm07/14/2025 5:34 AM EDT [facility],3 (BACTERIAL VAGINOSIS ASSOCIATED BACTERIA 2, 3); MOBILUNCUS SPP26.603(A)19.961 - 24.689 ppm07/14/2025 5:34 AM EDT [facility]Our [facility]BV[facility] 2,3 (BACTERIAL VAGINOSIS ASSOCIATED BACTERIA 2, 3); MOBILUNCUS SPPDetected(A)19.961 - 24.689 ppm07/14/2025 5:34 AM EDT [facility] HospitalCANDIDA ALBICANS, PARAPSILOSIS, WUQNLAPJFP601.000 - 30.347 ppm07/14/2025 5:34 AM EDTHealthTrackRx at [facility] HospitalCANDIDA ALBICANS, PARAPSILOSIS, TROPICALISNot Tkxtxpua25.000 - 30.347 ppm07/14/2025 5:34 AM EDT [facility] at LabPortCANDIDA LLVDKDWV097.000 - 31.618 ppm07/14/2025 5:34 AM EDTHealthTrackRx at LabPortCANDIDA GLABRATANot Mesfnkub38.000 - 31.618 ppm 07/14/2025 5:34 AM EDTHealthTrackRx at LabOur [facility] HospitalCANDIDA YIQBKH694.000 - 30.873 ppm07/14/2025 5:34 AM EDTHealthTrackRx at LabOur [facility] HospitalCANDIDA KRUSEINot Detected 23.000 - 30.873 ppm07/14/2025 5:34 AM EDTHealthTrackRx at [facility] CenterPortCHLAMYDIA DRSEEZKZYAF815.000 - 31.586 ppm07/14/2025 5:34 AM EDTHealthTrackRx at [facility] CHLAMYDIA TRACHOMATISNot Eynmpwsa34.000 - 31.586 ppm07/14/2025 5:34 AM EDT [facility] HospitalGARDNERELLA QUKALLAJJ012.961 - 24.689 ppm07/14/2025 5:34 AM EDTHealthTrackRx at LabPortGARDNERELLA VAGINALISNot Mnerrvgr12.961 - 24.689 ppm07/14/2025 5:34 AM EDTHealthTrackRx at LabPortMEGASPHAERA (TYPES 1, 2)019.961 - 24.689 ppm07/14/2025 5:34 AM EDTHealthTrackRx at LabPort MEGASPHAERA (TYPES 1, 2)Not Nsxnxnso40.961 - 24.689 ppm07/14/2025 5:34 AM EDT [facility] CenterPortNEISSERIA ESHRPXEKJUO415.000 - 32.587 ppm07/14/2025 5:34 AM EDTHealthTrackRx at [facility] CenterPortNEISSERIA GONORRHOEAENot Phxbladk86.000 - 32.587 ppm07/14/2025 5:34 AM EDTHealthTrackRx at LabPortTRICHOMONAS VAGINALIS0 23.000 - 31.995 ppm07/14/2025 5:34 AM EDTHealthTrackRx at LabPortTRICHOMONAS VAGINALISNot Iwrgdhsw80.000 - 31.995 ppm07/14/2025 5:34 AM EDTHealthTrackRx at LabPortMYCOPLASMA SXAHKDABZL525.961 - 24.689 ppm07/14/2025 5:34 AM EDT [facility] at LabPortMYCOPLASMA GENITALIUMNot Bbrdfihw88.961 - 24.689 ppm 07/14/2025 5:34 AM EDTHealthTrackRx at LabPortMYCOPLASMA LTOWPNH811.961 - 24.689 ppm07/14/2025 5:34 AM EDTHealthTrackRx at LabPortMYCOPLASMA HOMINISNot Yiorijjv38.961 - 24.689 ppm07/14/2025 5:34 AM EDTHealthTrackRx at LabPort UREAPLASMA EJXJAGPUIYR433.961 - 24.689 ppm07/14/2025 5:34 AM EDTHealthTrackRx at LabPortUREAPLASMA UREALYTICUMNot Mhinmzmd85.961 - 24.689 ppm07/14/2025 5:34 AM EDTHealthTrackRx at LabPortUREAPLASMA SBGWTE156.961 - 24.689 ppm07/14/2025 5:34 AM EDTHealthTrackRx at LabPortUREAPLASMA PARVUMNot Fukbqjsl10.961 - 24.689 ppm07/14/2025 5:34 AM EDTHealthTrackRx at LabPortSpecimen (Source) Anatomical Location / LateralityCollection Method / VolumeCollection Time Received MjknOjvfub84/13/2025 3:44 PM EDT1 1:52 AM EDT Narrative Authorizing ProviderResult TypeResult StatusAmy Bebeto STACK BLOOD ORDERABLES Final ResultPerforming OrganizationAddressCity/State/ZIP CodePhone Number [facility] LabPort [address] [address] * Pap Smear (07/13/2025 2:47 PM EDT)Specimen (Source)Anatomical Location / LateralityCollection Method / VolumeCollection TimeReceived IjfnVrlt81/13/2025 2:47 PM EDT Narrative Authorizing ProviderResult TypeResult StatusAmy Bebeto PALAB CYTOLOGY ORDERABLES Final ResultPerforming OrganizationAddressCity/State/ZIP CodePhone Number EXTERNAL LAB * PAP TEST, EXTERNAL (07/13/2025 12:00 AM EDT) Narrative Authorizing ProviderResult TypeResult StatusAmy Kaufman PALAB CYTOLOGY ORDERABLES Final ResultPerforming OrganizationAddressCity/State/ZIP CodePhone Number EXTERNAL LAB from Last 3 Months Insurance Care Teams Team MemberRelationshipSpecialtyStart DateEnd Date Helio Campos MD [address] [place] [phone] PCP - GeneralFamily Medicine04/05/23
--- OUTSIDE RECORDS SUMMARY | 2025-09-28 13:37 | XMS_ITS | Patient Health Record ---
Author Organization [facility] [place] Address [address] [place] [address] Care Team Providers Care Staff Psychiatrist Name Role Phone Carole Desouza Primary Care Provider Allergies No Known Allergies Results Component Value Reference Range Notes FREE T4 Reviewed date:03/24/2025 02:44:38 PM Interpretation: Performing Lab: Notes/Report: [facility] Free T4 1.19 0.76-1.46 ng/dL Performing Lab:see note - [facility] LBGLYCOHEMOGLOBIN A1C Reviewed date:03/24/2025 02:44:38 PM Interpretation: Performing Lab: Notes/Report: [facility] ,Glycohemoglobin A1C5.34.5-6.2 % ADA RECOMMENDED LIMIT 4.0 - 6.0 ADA THERAPEUTIC TARGET < 7.0 ACTION SUGGESTED > 7.0 Estimated Average Wtnlsqs365Ckvwxtlepj Lab:see noteML - [facility] LB PREG QUANT HCG Reviewed date:03/24/2025 02:44:38 PM Interpretation: Performing Lab: Notes/Report: [facility] ,HCG Quantitative<1 5-50 0.2-1 WEEK 50-500 1-2 WEEKS 100-5,000 2-3 WEEKS 500-10,000 3-4 WEEKS 1,000-50,000 4-5 WEEKS 10,000-100,000 5-6 WEEKS 15,000-200,000 6-8 WEEKS 10,000-100,000 2-3 MONTHS Performing Lab:see noteML - [facility] LBTSH Reviewed date:03/24/2025 02:44:38 PM Interpretation: Performing Lab: Notes/Report: [facility] ,Thyroid Stimulating Hormone3.1800.358-3.740 uIU/mLPerforming Lab:see pj - [facility] LBDHEA, Serum Reviewed date:03/29/2025 01:16:45 PM Interpretation: Performing Lab: Notes/Report: [facility] ,DHEA, Dthfd96976-624 ng/dL This test was developed and its performance characteristics determined by [facility]. It has not been cleared or approved by the Food and Drug Administration. Performed at: [address] [id number] Wealth Management Director: Tiara Merchant MD, Phone: [phone] Performing Lab:see [facility] LBLuteinizing Hormone(LH) Reviewed date:03/25/2025 05:44:37 PM Interpretation: Performing Lab: Notes/Report: [facility] ,Luteinizing Hormone(LH)4.4. mIU/mL Adult Female Range Follicular phase 2.4 - 12.6 Ovulation phase 14.0 - 95.6 Luteal phase 1.0 - 11.4 Postmenopausal 7.7 - 58.5 [facility] LBFSH Reviewed date:03/25/2025 05:44:37 PM Interpretation: Performing Lab: Notes/Report: [facility] ,FSH9.3. mIU/mL Adult Female Range Follicular phase 3.5 - 12.5 Ovulation phase 4.7 - 21.5 Luteal phase 1.7 - 7.7 Postmenopausal 25.8 - 134.8 Performed at: [address] [id number] Wealth Management Director: Ilya Manjarrez PhD, Phone: [phone] [facility] LBDHEA-Sulfate Reviewed date:03/25/2025 05:44:37 PM Interpretation: Performing Lab: Notes/Report: [facility] ,DHEA-Yytdvmc431.0110.0-431.7 ug/dLPerforming Lab:see [facility] LBAnti- Mullerian Hormone (AMH) Reviewed date:03/29/2025 01:16:45 PM Interpretation: Performing Lab: Notes/Report: [facility] ,Anti-Mullerian Hormone (AMH)0.939. ng/mL For assays employing antibodies, the possibility exists for interference by heterophile antibodies in the samples.1 1.Jayant George Interferences in Immunoassays - still a threat. Clin. Chem. 2000; 46: 5303-2963. This test was developed and its performance characteristics determined by [facility]. It has not been cleared or approved by the Food and Drug Administration. Reference Range: Females 20 - 25y: 1.23 - 11.51 Median 4.70 AMH concentrations of >= 1.06 ng/mL is correlated with a better response to ovarian stimulation, produced more retrievable oocytes and higher odds of live according to Cristal et al. Fertility and Sterility. 2010: 94:4980-4500. The current AMH test method correlates with [...] exclude an AMH-secreting ovarian tumor. Performed at: [facility] [address] [place] [id number] Wealth Management Director: Rogelio Salmon MD, Phone: [phone] Performing Lab:[facility] LBProgesterone Reviewed date:04/13/2025 08:29:18 AM Interpretation: Performing Lab: Notes/Report: [facility] ,Progesterone9.5. ng/mL Follicular phase 0.1 - 0.9 Luteal phase 1.8 - 23.9 Ovulation phase 0.1 - 12.0 First trimester 11.0 - 44.3 Second trimester 25.4 - 83.3 Third trimester 58.7 - 214.0 Postmenopausal 0.0 - 0.1 Performed at: [address] [id number] Wealth Management Director: Ilya Manjarrez PhD, Phone: [phone] Performing Lab:see [facility] LBPREG QUANT HCG Reviewed date:04/20/2025 04:55:30 PM Interpretation: Performing Lab: Notes/Report: [facility] ,HCG Bbkfwbuouvhu14 5-50 0.2-1 WEEK 50-500 1-2 WEEKS 100-5,000 2-3 WEEKS 500-10,000 3-4 WEEKS 1,000-50,000 4-5 WEEKS 10,000-100,000 5-6 WEEKS 15,000-200,000 6-8 WEEKS 10,000-100,000 2-3 MONTHS Performing Lab:see note - [facility] LBHCG Qualitative* Reviewed date:04/20/2025 04:55:30 PM Interpretation: Performing Lab: Notes/Report: [facility] QualitativePOSITIVENEGATIVEPerforming Lab:see noteML - [facility] LBPREG QUANT HCG Reviewed date:04/23/2025 12:33:44 PM Interpretation: Performing Lab: Notes/Report: [facility] Kryjqfnombfu299 5-50 0.2-1 WEEK 50-500 1-2 WEEKS 100-5,000 2-3 WEEKS 500-10,000 3-4 WEEKS 1,000-50,000 4-5 WEEKS 10,000-100,000 5-6 WEEKS 15,000-200,000 6-8 WEEKS 10,000-100,000 2-3 MONTHS Performing Lab:see note - [facility] LBCBC AUTO DIFF Reviewed date:05/15/2025 09:29:49 AM Interpretation: Performing Lab: Notes/Report: [facility] ,White Blood Count15.34.0-11.0 10 3/uLRed Blood Count4.294.20-5.40 10 6/uL Hvcbvdtors27.212.0-16.0 g/mJGcgsxazutt61.836.0-48.0 %Mean Corpuscular Rzidjj59.8 81.0-99.0 fLMean Corpuscular Vsxqfsyfbp00.826.7-34.0 pgMean Corpuscular HGB Conc 35.929.9-35.2 g/dLRed Cell Distribution Width12.811.0-15.0 %Platelet Pehmo060 150-450 10 3/uLMean Platelet Volume9.09.5-13.5 fLNeutrophils Percent Auto63.8 43.0-75.0 %Lymphocytes Percent Auto24.320.5-60.0 %Monocytes Percent Auto9.01.7- 12.0 %Eosinophils Percent Auto1.80.9-7.0 %Basophils Percent Auto0.40.2-2.0 % Immature Granulocytes Pct Auto0.70.0-0.5 %Neutrophils Absolute Auto9.81.4-6.5 10 3/uLLymphocytes Absolute Auto3.71.2-3.8 10 3/uLMonocytes Absolute Auto1.40.3-0.8 10 3/uLEosinophils Absolute Auto0.30.0-0.7 10 3/uLBasophils Absolute Auto0.10.0- 0.1 10 3/uLImmature Granulocytes Abs Auto0.110.00-0.03 10 3/uLPerforming Lab:see noteML - [facility] LBUA RANDOM W or MICROSCOPIC Reviewed date:05/15/2025 09:29:49 AM Interpretation: Performing Lab: Notes/Report: [facility] ,Color UrineLT. YELLOWYELLOWClarity UrineCLEARCLEARSpecific [place] Urine1.020 1.005-1.025pH Urine6.55.0-9.0Protein UrineNEGATIVENEG/TRACE mg/dLGlucose Urine UANEGATIVENEGATIVE mg/dLBilirubin UrineNEGATIVENEGATIVEKetones UrineNEGATIVE NEGATIVE mg/dLBlood UrineNEGATIVENEGATIVENitrite UrineNEGATIVENEGATIVE Urobilinogen Urine0.20.2-1.0 EU/dLLeukocyte Esterase UrineNEGATIVENEGATIVEWBC Urine0-2NONE SEEN #/HPFRBC Urine0-20-2 #/HPFBacteria UrineTRACENONE SEEN #/HPF Mucus UrineNONE SEENNONE SEENSquamous Epithelial Cell UrineMODERATENONE/RARE #/LPFCrystals Seen?None SeenNone Seen #/HPFCast Seen?NONE SEENNONE SEEN #/LPF Urine Culture IndicatedNOPerforming Lab:see noteML - [facility] LB ANTIBODY ID PANEL Reviewed date:05/29/2025 02:51:20 PM Interpretation: Performing Lab: Notes/Report: [facility] ,Antibody IdentificationD RHIG PROBABLE ANTI-D DUE TO RHIG ADMINISTRATION ON 05/14/25. FURTHER WORKUP AT [employer] REQUEST. CBC AUTO DIFF Reviewed date:05/29/2025 02:19:28 PM Interpretation: Performing Lab: Notes/Report: [facility] ,White Blood Count11.34.0-11.0 10 3/uLRed Blood Count4.244.20-5.40 10 6/uL Klwvzndbgr18.912.0-16.0 g/kNNuoqydrixx83.536.0-48.0 %Mean Corpuscular Mzdcqd11.1 81.0-99.0 fLMean Corpuscular Vhiywratii38.426.7-34.0 pgMean Corpuscular HGB Conc 35.329.9-35.2 g/dLRed Cell Distribution Width13.011.0-15.0 %Platelet Mdsug370 150-450 10 3/uLMean Platelet Volume9.09.5-13.5 fLNeutrophils Percent Auto61.8 43.0-75.0 %Lymphocytes Percent Auto28.620.5-60.0 %Monocytes Percent Auto7.11.7- 12.0 %Eosinophils Percent Auto1.70.9-7.0 %Basophils Percent Auto0.40.2-2.0 % Immature Granulocytes Pct Auto0.40.0-0.5 %Neutrophils Absolute Auto7.01.4-6.5 10 3/uLLymphocytes Absolute Auto3.21.2-3.8 10 3/uLMonocytes Absolute Auto0.80.3-0.8 10 3/uLEosinophils Absolute Auto0.20.0-0.7 10 3/uLBasophils Absolute Auto0.10.0- 0.1 10 3/uLImmature Granulocytes Abs Auto0.040.00-0.03 10 3/uLPerforming Lab:see noteML - [facility] LBGLYCOHEMOGLOBIN A1C Reviewed date:05/29/2025 03:30:16 PM Interpretation: Performing Lab: Notes/Report: [facility] ,Glycohemoglobin A1C4.94.5-6.2 % ADA RECOMMENDED LIMIT 4.0 - 6.0 ADA THERAPEUTIC TARGET < 7.0 ACTION SUGGESTED > 7.0 Estimated Average Tivjgwz44Hwgflihfez Lab:see noteML - [facility] LB LAB TESTING Reviewed date:06/03/2025 09:27:38 AM Interpretation: Performing Lab: Notes/Report: [id number] Tricyclic Antidepressants Confirmation, Urine [facility] ,Miscellaneous TestCOMMENT. Test Ordered: [id number] Tricyclic Antidepressant Conf Tricyclic Antidep Negative ng/mL UI Reference Range: Nurpwa=770 Confirmation performed by Mass Spectrometry Please Note: Comment UI Reference Range: . Drug test results should be interpreted in the context of clinical information. Patient metabolic variables, specific drug chemistry, and specimen characteristics can affect test outcome. Technical consultation is available if a test result is inconsistent with an expected outcome. Email: [email or web address] Performed at: [facility] [address], [place] [id number] Wealth Management Director: Ijeoma Lino PhD, Phone: [phone] Performed at: [facility] Lab[address] [id number] Wealth Management Director: Ilya Manjarrez PhD, Phone: [phone] Performing Lab:see note - [facility] LBMAGNESIUM Reviewed date:06/02/2025 11:12:43 AM Interpretation: Performing Lab: Notes/Report: [facility] ,Magnesium1.51.8-2.4 mg/dLPerforming Lab:see note - [facility] LB PROF 14(COMP METB) Reviewed date:06/02/2025 11:12:43 AM Interpretation: Performing Lab: Notes/Report: [facility] ,Gwvtdq345282-906 mmol/LPotassium3.33.5-5.1 mmol/WNewhsgtm89513-811 mmol/LCarbon Itwbium43.121.0-32.0 mmol/LAnion Gap14.1Axgwomo7874-625 mg/dLBlood Urea Nitrogen 8.07.0-18.0 mg/dLCreatinine0.750.55-1.02 mg/dLEstimated GFR ( Peyton>60 >=60 mL/min/1.73m 2Estimated GFR (Non- Reyna>60>=60 mL/min/1.73m 2BUN Creatinine Ratio10.9Akumtxc4.48.5-10.1 mg/dLBilirubin Total0.30.2-1.0 mg/dL Aspartate Amino Klexaflqbjd7021-17 U/LAlanine Oxmfcjcsvkuqxgms3841-04 U/L Alkaline Rbscqyjzazz0125-918 U/LTotal Protein7.86.4-8.2 g/dLAlbumin Level3.73.4- 5.0 g/dLGlobulin4.1Albumin Globulin Ratio0.9Performing Lab:see note - [facility] LBRUBELLA AB IGG Reviewed date:06/02/2025 11:12:43 AM Interpretation: Performing Lab: Notes/Report: [facility] ,Rubella Antibodies, IgG1.03Immune >0.99 index Non-immune <0.90 Equivocal 0.90 - 0.99 Immune >0.99 Performed at: [address] [id number] Wealth Management Director: Ilya Manjarrez PhD, Phone: [phone] Performing Lab:see [facility] LBType and Screen Reviewed date:05/29/2025 02:51:20 PM Interpretation: Performing Lab: Notes/Report: [facility] ,Blood TypeB NegativeAntibody ScreenPOSITIVEHIV Ab/p24 Ag with Reflex Reviewed date:06/02/2025 11:12:43 AM Interpretation: Performing Lab: Notes/Report: [facility] ,HIV Ab/p24 Ag ScreenNon ReactiveNon Reactive HIV-1/HIV-2 antibodies and HIV-1 p24 antigen were NOT detected. There is no laboratory evidence of HIV infection. HIV Negative Performed at: [address] [id number] Wealth Management Director: Ilya Manjarrez PhD, Phone: [phone] Performing Lab:see [facility] LBRapid Plasma Reagin, Quant Reviewed date:06/02/2025 11:12:43 AM Interpretation: Performing Lab: Notes/Report: [facility] ,Rapid Plasma Reagin, QuantNon ReactiveNonRea<1:1 titer Please Note: This test does not meet current guidelines for screening and diagnosis of syphilis. This test is intended for following treatment response in patients being treated for syphilis infection. To screen for syphilis infection, a reflex cascade that includes both RPR and a treponema-specific assay should be utilized, such as Treponema pallidum (Syphilis) Screening [place] ([address]) or Rapid Plasma Reagin (RPR) Test With Reflex to Quantitative RPR and Confirmatory Treponema pallidum Antibodies (590984). Performed at: [address] [id number] Wealth Management Director: Ilya Manjarrez PhD, Phone: [phone] [facility]forming [facility] LBHCV Antibody RFX to Quant PCR Reviewed date:06/02/2025 11:12:43 AM Interpretation: Performing Lab: Notes/Report: [facility] ,HCV AbNon ReactiveNon ReactiveInterpretation:Comment. Not infected with HCV unless early or acute infection is suspected (which may be delayed in an immunocompromised individual), or other evidence exists to indicate HCV infection. Performed at: [address] [id number] Wealth Management Director: Ilya Manjarrez PhD, Phone: [phone] Performing Lab[facility] LBHBsAg Screen Reviewed date:06/02/2025 11:12:43 AM Interpretation: Performing Lab: Notes/Report: [facility] ,HBsAg ScreenNegativeNegative Performed at: [address] [id number] Wealth Management Director: Ilya Manjarrez PhD, Phone: [phone] Performing Lab[facility] LBUrine Culture, Routine Reviewed date:06/02/2025 11:12:43 AM Interpretation: Performing Lab: Notes/Report: [facility] ,Urine Culture, RoutineSee Below For Report Urine Culture, Routine Urine Culture, RoutineMixed urogenital dean Urine Culture, Routine Urine Culture, Itiebzr37,000-100,000 colony forming units per mL Urine Culture, Routine Urine Culture, RoutinePerformed at: [facility] Urine Culture, Routine Urine Culture, [address] [place] [id number] Urine Culture, Routine Urine Culture, RoutineLab Director: Ilya Manjarrez PhD, Phone: [phone] Urine Culture, Routine Performing Lab:see note - [facility] SEE REPORT - Direct Support Staff Id information not found for OBX-specific executive producer promos legend Cannabinoid Conf, MS, UR Reviewed date:06/04/2025 04:05:51 PM Interpretation: Performing Lab: Notes/Report: [facility] ,CannabinoidPOSITIVECarboxy THC Conf, MS, UR>750 ng/mLCutoff = 10Performing Lab: see noteLC - [facility] LBUA Micro, reflex to culture Reviewed date:06/02/2025 11:12:43 AM Interpretation: Performing Lab: Notes/Report: [facility] ,Color UrineLT. YELLOWYELLOWClarity UrineSL CLOUDYCLEARSpecific [place] Urine 1.0101.005-1.025pH Urine6.55.0-9.0Protein UrineNEGATIVENEG/TRACE mg/dLGlucose Urine UANEGATIVENEGATIVE mg/dLBilirubin UrineNEGATIVENEGATIVEKetones Urine NEGATIVENEGATIVE mg/dLBlood UrineNEGATIVENEGATIVENitrite UrineNEGATIVENEGATIVE Urobilinogen Urine0.20.2-1.0 EU/dLLeukocyte Esterase UrineNEGATIVENEGATIVEWBC Urine0-2NONE SEEN #/HPFRBC UrineNONE SEEN0-2 #/HPFBacteria UrineTRACENONE SEEN #/HPFMucus UrineNONE SEENNONE SEENSquamous Epithelial Cell UrineMANYNONE/RARE #/LPFCrystals Seen?None SeenNone Seen #/HPFCast Seen?NONE SEENNONE SEEN #/LPF Urine Culture IndicatedNOPerforming Lab:see noteML - [facility] LB [place] Box Reviewed date:05/29/2025 02:19:29 PM Interpretation: Performing Lab: Notes/Report: [facility] ,BOX Test Sent OutunityBOX Test Reference LabunityBOX Test Date Sent05/29/25 Performing Lab:see noteML - [facility] LBCBC AUTO DIFF Reviewed date:06/02/2025 11:12:43 AM Interpretation: Performing Lab: Notes/Report: [facility] ,White Blood Count14.04.0-11.0 10 3/uLRed Blood Count3.924.20-5.40 10 6/uL Fhofwxolih39.212.0-16.0 g/aEPcxdrfbtxy60.736.0-48.0 %Mean Corpuscular Xjdbun50.0 81.0-99.0 fLMean Corpuscular Pvoymjilsf14.126.7-34.0 pgMean Corpuscular HGB Conc 36.229.9-35.2 g/dLRed Cell Distribution Width12.711.0-15.0 %Platelet Eddfe211 150-450 10 3/uLMean Platelet Volume9.09.5-13.5 fLNeutrophils Percent Auto75.4 43.0-75.0 %Lymphocytes Percent Auto15.520.5-60.0 %Monocytes Percent Auto7.61.7- 12.0 %Eosinophils Percent Auto0.70.9-7.0 %Basophils Percent Auto0.30.2-2.0 % Immature Granulocytes Pct Auto0.50.0-0.5 %Neutrophils Absolute Auto10.61.4-6.5 10 3/uLLymphocytes Absolute Auto2.21.2-3.8 10 3/uLMonocytes Absolute Auto1.10.3- 0.8 10 3/uLEosinophils Absolute Auto0.10.0-0.7 10 3/uLBasophils Absolute Auto0.0 0.0-0.1 10 3/uLImmature Granulocytes Abs Auto0.070.00-0.03 10 3/uLPerforming Lab:see noteML - [facility] LBCBC AUTO DIFF Reviewed date:07/06/2025 09:22:39 AM Interpretation: Performing Lab: Notes/Report: [facility] ,White Blood Count13.44.0-11.0 10 3/uLRed Blood Count4.474.20-5.40 10 6/uL Oailocvmms62.512.0-16.0 g/dXVjducyynkc09.036.0-48.0 %Mean Corpuscular Piixaz04.0 81.0-99.0 fLMean Corpuscular Lebnykbefr84.226.7-34.0 pgMean Corpuscular HGB Conc 35.529.9-35.2 g/dLRed Cell Distribution Width12.511.0-15.0 %Platelet Wteac460 150-450 10 3/uLMean Platelet Volume8.89.5-13.5 fLNeutrophils Percent Auto75.1 43.0-75.0 %Lymphocytes Percent Auto17.820.5-60.0 %Monocytes Percent Auto5.41.7- 12.0 %Eosinophils Percent Auto0.70.9-7.0 %Basophils Percent Auto0.30.2-2.0 % Immature Granulocytes Pct Auto0.70.0-0.5 %Neutrophils Absolute Auto10.11.4-6.5 10 3/uLLymphocytes Absolute Auto2.41.2-3.8 10 3/uLMonocytes Absolute Auto0.70.3- 0.8 10 3/uLEosinophils Absolute Auto0.10.0-0.7 10 3/uLBasophils Absolute Auto0.0 0.0-0.1 10 3/uLImmature Granulocytes Abs Auto0.100.00-0.03 10 3/uLPerforming Lab:see noteML - [facility] LBFREE T4 Reviewed date:07/06/2025 09:22:39 AM Interpretation: Performing Lab: Notes/Report: [facility] ,Free T41.140.76-1.46 ng/dLPerforming Lab:see noteML - [facility] LB MAGNESIUM Reviewed date:07/06/2025 09:22:39 AM Interpretation: Performing Lab: Notes/Report: [facility] ,Magnesium1.81.8-2.4 mg/dLPerforming Lab:see noteML - [facility] LB PROF 14(COMP METB) Reviewed date:07/06/2025 09:22:39 AM Interpretation: Performing Lab: Notes/Report: [facility] ,Lhjliu201048-078 mmol/LPotassium3.53.5-5.1 mmol/PWmnahtcl18536-283 mmol/LCarbon Wuzpfak06.921.0-32.0 mmol/LAnion Gap17.8Viffhpf5952-526 mg/dLBlood Urea Nitrogen 7.07.0-18.0 mg/dLCreatinine0.600.55-1.02 mg/dLEstimated GFR ( Peyton>60 >=60 mL/min/1.73m 2Estimated GFR (Non- Reyna>60>=60 mL/min/1.73m 2BUN Creatinine Ratio11.7Dbrjltx0.68.5-10.1 mg/dLBilirubin Total0.50.2-1.0 mg/dL Aspartate Amino Wldgkiivmkl9979-35 U/LAlanine Luootwmbqddkzooq2747-59 U/L Alkaline Rnmgbleytog3809-249 U/LTotal Protein7.96.4-8.2 g/dLAlbumin Level3.43.4- 5.0 g/dLGlobulin4.5Albumin Globulin Ratio0.8Performing Lab:see noteML - [facility] LBTSH Reviewed date:07/06/2025 09:22:39 AM Interpretation: Performing Lab: Notes/Report: [facility] ,Thyroid Stimulating Hormone2.9030.358-3.740 uIU/mLPerforming Lab:see noteML - [facility] LBUA RANDOM W or MICROSCOPIC Reviewed date:07/06/2025 09:22:39 AM Interpretation: Performing Lab: Notes/Report: [facility] ,Color UrineLT. YELLOWYELLOWClarity UrineCLEARCLEARSpecific [place] Urine1.015 1.005-1.025pH Urine8.05.0-9.0Protein UrineTRACENEG/TRACE mg/dLGlucose Urine UA NEGATIVENEGATIVE mg/dLBilirubin UrineNEGATIVENEGATIVEKetones Oxdaa96SGBTZAHM mg/dLBlood UrineNEGATIVENEGATIVENitrite UrineNEGATIVENEGATIVEUrobilinogen Urine 0.20.2-1.0 EU/dLLeukocyte Esterase UrineTRACENEGATIVEWBC Urine0-2NONE SEEN #/HPF RBC Urine0-20-2 #/HPFBacteria UrineTRACENONE SEEN #/HPFMucus UrineNONE SEENNONE SEENSquamous Epithelial Cell UrineFEWNONE/RARE #/LPFCrystals Seen?None SeenNone Seen #/HPFCast Seen?NONE SEENNONE SEEN #/LPFUrine Culture IndicatedNOPerforming Lab:see noteML - [facility] LBIGP,Aptima HPV,Age Gdln Reviewed date:07/20/2025 10:26:51 AM Interpretation: Performing Lab: Notes/Report: SPATULA-ALONE ENDOCERVIX [facility] ,Age Gdln ACOG TestingNote. TESTS RESULT FLAG UNITS REF RANGE LAB Clinician Provided Cytology Information Source.............Endocervix Other.............. No. of containers..01 ThinPrep Vial Age Ranjan ASTORGA Lanny... FLAG LEGEND: L-Low Normal,H-High Normal,LL-Alert Low,HH-Alert High <-Panic Low,>-Panic High,A-Abnormal,AA-Critical Abnormal Performed at: 01 =G [address] [address] Shannanshad Cerda MD, IGP, rfx Aptima HPV ASCUNote. TESTS RESULT FLAG UNITS REF RANGE LAB DIAGNOSIS: 02 NEGATIVE FOR INTRAEPITHELIAL LESION OR MALIGNANCY. Specimen adequacy: 02 Satisfactory for evaluation. Endocervical and/or squamous metaplastic cells (endocervical component) are present. Performed by: 02 Maria Esther Michael Inorganic Chemistry Teacher ([facility]) . 02 Note: Note 02 The Pap [...] ThinPrep(R) pap test was interpreted using the FinderlyRSyntertainment(TM) Cervical Algorithm whole slide imaging system. . 02 The HPV DNA reflex criteria were not met with this specimen result therefore, no HPV testing was performed. FLAG LEGEND: L-Low Normal,H-High Normal,LL-Alert Low,HH-Alert High <-Panic Low,>-Panic High,A-Abnormal,AA-Critical Abnormal Performed at: [address] [id number] Shannan Cerda MD, Performed at: = - [facility] [id number] Wealth Management Director: Shannan Cerda MD, Phone: [phone] Performed at: [facility] [address] [id number] Wealth Management Director: Shannan Creda MD, Phone: [phone] Performing Lab:see [facility] LBUA RANDOM W or MICROSCOPIC Reviewed date:07/20/2025 10:26:22 AM Interpretation: Performing Lab: Notes/Report: [facility] ,Color UrineYELLOWYELLOWClarity UrineSL CLOUDYCLEARSpecific [place] Urine1.010 1.005-1.025pH Urine7.05.0-9.0Protein UrineTRACENEG/TRACE mg/dLGlucose Urine UA NEGATIVENEGATIVE mg/dLBilirubin UrineSMALLNEGATIVEKetones Kfuvf52HGMDDMGY mg/dL Blood UrineNEGATIVENEGATIVENitrite UrineNEGATIVENEGATIVEUrobilinogen Urine0.2 0.2-1.0 EU/dLLeukocyte Esterase UrineTRACENEGATIVEWBC Urine0-2NONE SEEN #/HPFRBC UrineNONE SEEN0-2 #/HPFBacteria UrineTRACENONE SEEN #/HPFMucus UrineNONE SEEN NONE SEENSquamous Epithelial Cell UrineMANYNONE/RARE #/LPFCrystals Seen?None SeenNone Seen #/HPFCast Seen?NONE SEENNONE SEEN #/LPFUrine Culture IndicatedNO Performing Lab:see noteML - [facility] LBAFP, Serum, Open Spina Bifida Reviewed date:08/06/2025 10:21:03 AM Interpretation: Performing Lab: Notes/Report: N N ULTRASOUND [id number] 3 15 N 1 Y 267 N N N N N White/ [facility] ,ResultsReport.Test Results:*Screen Negative*.Gest. Age on Collection Date18.6. weeksGestat. Age Based OnUltrasound. 17.4 on 07/13/2025 Recalculations are not recommended when gestational dating by LMP and ultrasound are within 10 days. Maternal Age At EDD23.5. yrRaceCaucasian.Puuhwd453. lbsInsulin Dep DiabetesNo. Multiple GestationNo.AFP Value61.2. ng/mLAFP MoM1.85.OSBR Risk 1 TL9202. InterpretationComment. Interpretation: Screen Negative This result is screen [...] Genetic Customer Services to discuss available options. The [employer] recommends amniocentesis be offered to women age 35 and older. Comment:Comment. Lesli Das, Ph.D., [facility] Director References: Available Upon Request. Multiples Of Median Cutoffs For AFP Elevations [place] 2.5 Black 2.8 IDD 2.0 Twins 4.5 Abbreviation Definitions IDD - Insulin Dep Diabetes OSBR - Open Spina Bifida Risk For further inquiries contact [facility] at [phone]. This test was developed and its performance characteristics determined by [employer]. It has not been cleared or approved by the Food and Drug Administration. Performed at: - [facility] [address] [facility], [place], [place] [id number] Wealth Management Director: Wayne [facility], Phone: [phone] Performing Lab:see noteLC - [facility] LBDRUG SCREEN RAPID (URINE) Reviewed date:05/29/2025 02:19:29 PM Interpretation: Performing Lab: Notes/Report: [facility] ,Cannabinoid Screen UrinePOSITIVENEGATIVEPhencyclidine Screen UrineNEGATIVE NEGATIVECocaine Screen UrineNEGATIVENEGATIVEMethamphetamines Screen Urine NEGATIVENEGATIVEOpiate Screen UrineNEGATIVENEGATIVEAmphetamine Screen Urine NEGATIVENEGATIVEBenzodiazepines Screen UrineNEGATIVENEGATIVETricyclic Antidepressant UrinePOSITIVENEGATIVEMethadone Screen UrineNEGATIVENEGATIVE Barbiturates Screen UrineNEGATIVENEGATIVEOxycodone Screen UrineNEGATIVENEGATIVE Buprenorphine Screen UrineNEGATIVENEGATIVE DRUG CLASS TEST SYSTEM CUT-OFF CONCENTRATIONS ARE FOLLOWS: AMP (Amphetamine): 500 ng/mL BAR (Barbiturates): 200 ng/mL BZO (Benzodiazepines): 150 ng/mL BUP (Buprenorphine): 10 ng/mL JOHN (Cocaine): 150 ng/mL mAMP (Methamphetamine): 500 ng/mL MTD (Methadone): 200 ng/mL OPI (Opiates): 100 ng/mL OXY (Oxycodone): 100 ng/mL PCP (Phencyclidine): 25 ng/mL THC (Cannabinoids): 50 ng/mL TCA (Trycyclic Antidepressants): 300 ng/mL Performing Lab:see noteML - [facility] LBType and Screen Reviewed date:05/15/2025 09:29:49 AM Interpretation: Performing Lab: Notes/Report: [facility] ,Blood TypeB NegativeAntibody ScreenNEGATIVEPROF 14(COMP METB) Reviewed date:05/15/2025 09:29:49 AM Interpretation: Performing Lab: Notes/Report: [facility] ,Wbdecr439859-011 mmol/LPotassium3.43.5-5.1 mmol/GFohdyuyh22201-543 mmol/LCarbon Glkkgbq59.721.0-32.0 mmol/LAnion Gap9.9Jofiweg6249-378 mg/dLBlood Urea Nitrogen 10.07.0-18.0 mg/dLCreatinine0.740.55-1.02 mg/dLEstimated GFR ( Peyton>60 >=60 mL/min/1.73m 2Estimated GFR (Non- Reyna>60>=60 mL/min/1.73m 2BUN Creatinine Ratio13.1Bhywiiz2.38.5-10.1 mg/dLBilirubin Total0.30.2-1.0 mg/dL Aspartate Amino Geqsazdnvzp8031-31 U/LAlanine Ssytswrmwfbsqnmz7544-43 U/L Alkaline Cxpfnyxbnqj3117-636 U/LTotal Protein7.36.4-8.2 g/dLAlbumin Level3.33.4- 5.0 g/dLGlobulin4.0Albumin Globulin Ratio0.8Performing Lab:see noteML - [facility] LBPREG QUANT HCG Reviewed date:05/15/2025 09:29:49 AM Interpretation: Performing Lab: Notes/Report: [facility] ,HCG Tapnxlslbdco64022 5-50 0.2-1 WEEK 50-500 1-2 WEEKS 100-5,000 2-3 WEEKS 500-10,000 3-4 WEEKS 1,000-50,000 4-5 WEEKS 10,000-100,000 5-6 WEEKS 15,000-200,000 6-8 WEEKS 10,000-100,000 2-3 MONTHS Performing Lab:see noteML - [facility] LBPREG QUANT HCG Reviewed date:04/21/2025 10:56:49 AM Interpretation: Performing Lab: Notes/Report: [facility] ,HCG Ekdujcchakoy47 5-50 0.2-1 WEEK 50-500 1-2 WEEKS 100-5,000 2-3 WEEKS 500-10,000 3-4 WEEKS 1,000-50,000 4-5 WEEKS 10,000-100,000 5-6 WEEKS 15,000-200,000 6-8 WEEKS 10,000-100,000 2-3 MONTHS Performing Lab:see noteML - [facility] LBCBC AUTO DIFF Reviewed date:03/24/2025 02:44:38 PM Interpretation: Performing Lab: Notes/Report: [facility] ,White Blood Count9.54.0-11.0 10 3/uLRed Blood Count4.544.20-5.40 10 6/uL Edrphmdtou70.912.0-16.0 g/mWUpqcxblfuw73.136.0-48.0 %Mean Corpuscular Gheryq21.1 81.0-99.0 fLMean Corpuscular Ydovkzanlr94.626.7-34.0 pgMean Corpuscular HGB Conc 35.529.9-35.2 g/dLRed Cell Distribution Width12.411.0-15.0 %Platelet Arrcg783 150-450 10 3/uLMean Platelet Volume9.39.5-13.5 fLNeutrophils Percent Auto57.4 43.0-75.0 %Lymphocytes Percent Auto31.620.5-60.0 %Monocytes Percent Auto7.51.7- 12.0 %Eosinophils Percent Auto2.80.9-7.0 %Basophils Percent Auto0.40.2-2.0 % Immature Granulocytes Pct Auto0.30.0-0.5 %Neutrophils Absolute Auto5.51.4-6.5 10 3/uLLymphocytes Absolute Auto3.01.2-3.8 10 3/uLMonocytes Absolute Auto0.70.3-0.8 10 3/uLEosinophils Absolute Auto0.30.0-0.7 10 3/uLBasophils Absolute Auto0.00.0- 0.1 10 3/uLImmature Granulocytes Abs Auto0.030.00-0.03 10 3/uLPerforming Lab:see noteML - [facility] LBTSH Reviewed date:02/16/2025 01:54:56 PM Interpretation: Performing Lab: Notes/Report: [facility] ,Thyroid Stimulating Hormone3.2020.358-3.740 uIU/mLPerforming Lab:see noteML - [facility] LBPROF 14(COMP METB) Reviewed date:02/16/2025 01:54:56 PM Interpretation: Performing Lab: Notes/Report: [facility] ,Qsdohv520827-565 mmol/LPotassium3.93.5-5.1 mmol/VIhkmfyze44335-548 mmol/LCarbon Twsbipe17.621.0-32.0 mmol/LAnion Gap14.2Yrgekux3281-327 mg/dLBlood Urea Nitrogen 17.07.0-18.0 mg/dLCreatinine0.860.55-1.02 mg/dLEstimated GFR ( Peyton>60 >=60 mL/min/1.73m 2Estimated GFR (Non- Reyna>60>=60 mL/min/1.73m 2BUN Creatinine Ratio19.9Xrbjffn9.38.5-10.1 mg/dLBilirubin Total0.40.2-1.0 mg/dL Aspartate Amino Cfthurxcsya7322-67 U/LAlanine Lkydvuqadjbvadoh5807-13 U/L Alkaline Masbzohjoqt04928-846 U/LTotal Protein7.96.4-8.2 g/dLAlbumin Level3.7 3.4-5.0 g/dLGlobulin4.2Albumin Globulin Ratio0.9Performing Lab:see noteML - [facility] LBPREG QUANT HCG Reviewed date:02/16/2025 01:54:56 PM Interpretation: Performing Lab: Notes/Report: [facility] ,HCG Quantitative<1 5-50 0.2-1 WEEK 50-500 1-2 WEEKS 100-5,000 2-3 WEEKS 500-10,000 3-4 WEEKS 1,000-50,000 4-5 WEEKS 10,000-100,000 5-6 WEEKS 15,000-200,000 6-8 WEEKS 10,000-100,000 2-3 MONTHS Performing Lab:see noteML - [facility] LB Reason For Referral No Information Medications Medication SIG (Take, Route, Frequency, Duration) Notes Start Date End Date Status Virasal 27.5 % 1 application as needed External ly Once a day 07/01/2024ctiveVraylar 3 MG1 capsule Oral Once a day; [...] in the past year?Less than monthly (1 point)Rckzpm2Atvxtafaoprjvx NegativeAUDIT-C (Standard) Question Answer Notes Did you [...] Problem Disorder of female g enital organs (114571164) Other specified conditions associated with female genital organs and menstrual cycle (N94.89) ActiveconfirmedProblemSomnolence (19111173)Somnolence (R40.0)Activeconfirmed ProblemSleep apnea (41371182)Severe sleep apnea (G47.30)ActiveconfirmedProblem Transsexual (finding) (335055657)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)ActiveconfirmedProblem Mixed anxiety and depressive disorder (448141930)Anxiety and depression (F41.8) Activeconfirmed Plan Of Treatment Pending Test Test Name Order Date Sleep study - Diagnostic Polysonogram US PELVIS AND TRANSVAG 06/22/2023 Insurance Providers Payer Name Payer Address Payer Phone Subscriber Number Group Number Insured Name Patient Relationship to Insured Coverage Start Date Coverage End Date [employer] [place] [employer] [address] [place] [phone] [id number] Urvashi Tristan - patient is the insured Medical (General) History Medical History History ICD Code Severe sleep apnea G47.30 [place] History [place] [facility] [place]
[2025-09-28 14:49] LABS: Hematocrit 32.0 % (36.0-48.0); Hemoglobin 11.0 g/dL (12.0-16.0); Immature Granulocytes Abs Auto 0.17 10^3/uL (0.00-0.03); Immature Granulocytes Pct Auto 1.1 % (0.0-0.5); Lymphocytes Absolute Auto 2.8 10^3/uL (1.2-3.8); Mean Corpuscular HGB Conc 34.4 g/dL (29.9-35.2); Mean Corpuscular Hemoglobin 29.6 pg (26.7-34.0); Mean Corpuscular Volume 86.0 fL (81.0-99.0); Platelet Count 224 10^3/uL (150-450); Red Blood Count 3.72 10^6/uL (4.20-5.40); White Blood Count 15.6 10^3/uL (4.0-11.0)
[2025-09-28 15:22] LABS: Glucose 1 Hour 133 mg/dL (<130)
== END 2025-09-28 13:32 | disposition home or self-care (01) ==
LOC: LAB 13:33
PROVIDERS: PCP Nurse Practitioner Family; Visit Provider Physician Assistant
DX: Z13.1 Encounter for screening for diabetes mellitus (principal)
CPT/HCPCS: 36415; 82950; 85025